=== PATIENT | female | born 1950 | race Hispanic/Latino ===

== ENCOUNTER 2017-09-20 12:50 | Outpatient (CLI) | payer MEDICARE ==
--- NOTE | 2017-09-21 07:58 | Magnetic Resonance Report ---
MRI of the lumbar spine. History: Severe lumbosacral radiculopathy. Procedure: Sagittal T1-weighted, T2-weighted, inversion recovery images, axial T1 and T2-weighted images were used in the study. Findings: The L1-2 level is unremarkable. There is severe narrowing of the disc space at L2-3 with reactive Modic changes at the endplates. There is a mild broad-based disc bulge with mild effacement of the anterior subarachnoid space. Extensive anterior hypertrophic changes are present. There is no spinal stenosis. The L3-4 level is unremarkable. At the L4-5 level, there is a broad-based mild disc bulge. There is moderate facet joint DJD and hypertrophy. There is mild ligamentum flavum hypertrophy. The findings result in borderline central canal stenosis. At the L5-S1 level, there is severe disc space narrowing. A mild circumferential disc bulge is present. There is facet joint DJD and hypertrophy bilaterally, but no spinal stenosis. The conus appears normal. No additional significant bony abnormalities are seen. Impression: Severe degenerative disc disease, most pronounced at L2-3 and L5-S1 with broad-based disc bulges at these levels. Borderline central canal stenosis is present at L4-5.
--- NOTE | 2017-09-21 10:58 | Cat Scan Report ---
CT LUMBAR SPINE WITHOUT CONTRAST: 09/20/17 12:50:00 CLINICAL: Lumbosacral radiculopathy. TECHNIQUE: Volumetric acquisition and 1.25-mm axial scan reconstructions without contrast. Sagittal and coronal reformats were performed. FINDINGS: Normal vertebral body height and alignment. No fracture or subluxation. Disc space narrowing without disc phenomenon at L2-3 and L5-S1. L1-2:Intact. L2-3:Degeneration of the disc with vacuum disc phenomenon. A large right lateral disc-osteophyte produces moderate right neural foraminal narrowing. Mild bilateral facet hypertrophy. L3-4:Moderate circumferential disc bulge. L4-5:Circumferential disc bulge. Moderate bilateral facet hypertrophy and vacuum disc phenomenon of the facet joints. L5-S1:Degeneration of the disc and vacuum disc phenomenon. Anterior and posterior osteophytes. A large left foraminal osteophyte producing moderate left neural foraminal narrowing. Bilateral facet hypertrophy and vacuum disc phenomenon of the right facet joint. IMPRESSION: Multilevel degenerative disease and facet joint disease as described above.
== END 2017-09-20 12:51 | disposition home or self-care (01) ==
LOC: CT 12:50
PROVIDERS: ATTEND Orthopaedic Surgery Orthopaedic Trauma
DX: M51.17 Intervertebral disc disorders with radiculopathy, lumbosacral region (principal); M24.28 Disorder of ligament, vertebrae; Z96.653 Presence of artificial knee joint, bilateral
CPT/HCPCS: 72131; 72148

== ENCOUNTER 2021-04-21 12:54 | Emergency (ER) | payer MEDICARE ==
[2021-04-21 13:40] VITALS: BP 131/68
== END 2021-04-21 16:58 | disposition left against medical advice (07) ==
LOC: ED 12:54
DX: M79.89 Other specified soft tissue disorders (principal); Z53.21 Procedure and treatment not carried out due to patient leaving prior to being seen by health care provider

== ENCOUNTER 2021-05-01 00:20 | Inpatient (IN) | payer MEDICARE ==
[2021-05-01] MEDS ORDERED: HEPARIN 10,000 UNITS/10 ML VIAL IV ONE (00:21)
--- NOTE | 2021-05-01 00:25 | Emergency Department Report ---
ED Chest Pain HPI - General Chief Complaint: Chest Pain Stated Complaint: CHEST PAIN Time Seen by Provider: 05/01/21 00:21 Source: patient, EMS Mode of arrival: Stretcher Limitations: No Limitations - History of Present Illness Initial Comments: 70-year-old -[place] female presents to the emergency department with a complaint of midsternal to left-sided chest pain that started about 11 PM, about 1 hour and 15 minutes prior to presentation. She has a past medical history of hypertension, high cholesterol, diabetes, end-stage renal disease on peritoneal dialysis. She denies any history of LA. EMS called in for a possible code STEMI with an ETA of 15 minutes. They sent an EKG about 8 to 10 minutes later that did show concern for inferior lateral LA. The patient was given a full dose aspirin. They withheld any nitroglycerin with concern for an inferior LA. The EKG from the field was sent to the cable strander, Dr. Escobedo. The Robotics Application Engineer has been activated. - Related Data Home Medications Medication Instructions Recorded Confirmed Last Taken Albuterol Sulfate [Ventolin Hfa] 2 puff IH Q6H PRN 08/30/18 10/10/18 10/08/18 Amlodipine Besylate [Norvasc] 5 mg PO QDAY 08/30/18 10/10/18 10/08/18 HYDROcodone/APAP 7.5-325 [[place] 1 each PO DAILY PRN 08/30/18 10/10/18 10/06/18 7.5-325 mg TAB] Hydralazine HCl 50 mg PO BID 08/30/18 10/10/18 10/08/18 Latanoprost 0.005% 1 drop OU QPM 08/30/18 10/10/18 10/08/18 Pantoprazole [Protonix TAB] 40 mg PO QDAY 08/30/18 10/10/18 10/08/18 Pregabalin [Lyrica] 200 mg PO BID 08/30/18 10/10/18 10/08/18 cloNIDine [Catapres] 0.2 mg PO QHS 08/30/18 10/10/18 10/08/18 tiZANidine [Zanaflex 4mg TAB] 4 mg PO DAILY PRN 08/30/18 10/10/18 10/08/18 Previous Rx's Medication Instructions Recorded Last Taken Type Furosemide [Lasix TAB] 40 mg PO DAILY #30 tablet 10/06/18 10/08/18 Rx Insulin Glargine [Lantus VIAL] 25 units SUB-Q QHS #1 vial 10/06/18 10/08/18 Rx Insulin Lispro [HumaLOG VIAL] 0 units SQ AC #1 vial 10/06/18 10/08/18 Rx Potassium Chloride [K-Dur] 20 meq PO QDAY #30 tablet 10/06/18 10/08/18 Rx Carvedilol [Coreg] 25 mg PO BID #60 tablet 10/15/18 Unknown Rx levoFLOXacin [Levaquin TAB] 500 mg PO Q48HR #1 tablet 10/15/18 Unknown Rx Allergies Allergy/AdvReac Type Severity Reaction Status Date / Time Penicillins Allergy Itching Verified 08/30/18 08:25 Heart Score - HEART Score History: Highly suspicious EKG: Significant ST-depression Age: > 65 Risk factors: > 3 risk factors or hx of atherosclerotic disease Troponin: < normal limit HEART Score: 8 - EKG Read Time Time EKG Completed: 00:25 EKG Read Time: 00:25 - Critical Actions Critical Actions: >7 pts:50-65% risk of adverse cardiac event. Early invasive measures ED Review of Systems ROS: Stated complaint: CHEST PAIN Other details as noted in HPI Comment: All other systems reviewed and negative Constitutional: denies: chills, fever Eyes: denies: eye pain, vision change ENT: denies: ear pain, throat pain Respiratory: shortness of breath. denies: cough Cardiovascular: chest pain. denies: palpitations Gastrointestinal: denies: abdominal pain, vomiting Genitourinary: denies: dysuria, discharge Musculoskeletal: denies: back pain, arthralgia Skin: denies: rash, lesions Neurological: denies: headache, weakness ED Past Medical Hx - Past Medical History Hx Hypertension: Yes Hx Congestive Heart Failure: Yes Hx Diabetes: Yes Hx Renal Disease: Yes (Hx of chronic Kidney Disease) Hx Arthritis: Yes Hx Asthma: Yes Hx HIV: No Additional medical history: stomach issues. - Surgical History Additional Surgical History: bilateral knee replacements, left shoulder surgery, chronic back pain and leg pain - Social History Smoking Status: Never Smoker - Medications Home Medications: Home Medications Medication Instructions Recorded Confirmed Last Taken Type Albuterol Sulfate [Ventolin Hfa] 2 puff IH Q6H PRN 08/30/18 10/10/18 10/08/18 History Amlodipine Besylate [Norvasc] 5 mg PO QDAY 08/30/18 10/10/18 10/08/18 History HYDROcodone/APAP 7.5-325 [[place] 1 each PO DAILY PRN 08/30/18 10/10/18 10/06/18 History 7.5-325 mg TAB] Hydralazine HCl 50 mg PO BID 08/30/18 10/10/18 10/08/18 History Latanoprost 0.005% 1 drop OU QPM 08/30/18 10/10/18 10/08/18 History Pantoprazole [Protonix TAB] 40 mg PO QDAY 08/30/18 10/10/18 10/08/18 History Pregabalin [Lyrica] 200 mg PO BID 08/30/18 10/10/18 10/08/18 History cloNIDine [Catapres] 0.2 mg PO QHS 08/30/18 10/10/18 10/08/18 History tiZANidine [Zanaflex 4mg TAB] 4 mg PO DAILY PRN 08/30/18 10/10/18 10/08/18 History Furosemide [Lasix TAB] 40 mg PO DAILY #30 tablet 10/06/18 10/10/18 10/08/18 Rx Insulin Glargine [Lantus VIAL] 25 units SUB-Q QHS #1 vial 10/06/18 10/10/18 10/08/18 Rx Insulin Lispro [HumaLOG VIAL] 0 units SQ AC #1 vial 10/06/18 10/10/18 10/08/18 Rx Potassium Chloride [K-Dur] 20 meq PO QDAY #30 tablet 10/06/18 10/10/18 10/08/18 Rx Carvedilol [Coreg] 25 mg PO BID #60 tablet 10/15/18 Unknown Rx levoFLOXacin [Levaquin TAB] 500 mg PO Q48HR #1 tablet 10/15/18 Unknown Rx ED Physical Exam - General Limitations: No Limitations - Other Other exam information: GENERAL: The patient is well-developed well-nourished. HENT: Normocephalic. Atraumatic. Patient has moist mucous membranes. EYES: Extraocular motions are intact. NECK: Supple. Trachea is midline. CHEST/LUNGS: Clear to auscultation. There is no respiratory distress noted. HEART/CARDIOVASCULAR: Regular. There is no tachycardia. There is no murmur. ABDOMEN: Abdomen is soft, nontender. Patient has normal bowel sounds. There is no abdominal distention. Peritoneal dialysis catheter in place. SKIN: Skin is warm and dry. NEURO: The patient is awake, alert, and oriented. The patient is cooperative. The patient has no focal neurologic deficits. Normal speech. MUSCULOSKELETAL: There is no tenderness or deformity. There is no limitation range of motion. ED Course Vital Signs 05/01/21 05/01/21 05/01/21 00:23 00:28 00:31 Temperature Pulse Rate 94 H 95 H 92 H Respiratory 22 17 11 L Rate Blood Pressure 200/97 O2 Sat by Pulse 100 97 100 Oximetry 05/01/21 00:46 Temperature 97.0 F L Pulse Rate Respiratory Rate Blood Pressure O2 Sat by Pulse Oximetry - Consultations Consultation #1: 05/01/21 00:12 I spoke with and sent the EKG to the cable strander on-call, Dr. Escobedo. He agrees with the concern for acute STEMI and we will continue with Robotics Application Engineer activation. TOSHIA score - Toshia Score Age > 65: (1) Yes Aspirin use within the Past 7 Days: (1) Yes 3 or more CAD Risk Factors: (1) Yes 2 or more Angina events in past 24 hrs: (0) No Known CAD with more than 50% Stenosis: (0) No Elevated Cardiac Markers: (0) No ST Deviation Greater than 0.5mm: (1) Yes TOSHIA Score: 4 ED Medical Decision Making - Lab Data Result diagrams: 05/01/21 00:25 05/01/21 00:25 - EKG Data -: EKG Interpreted by In EKG shows normal: sinus rhythm, axis, intervals, QRS complexes, ST-T waves (ST elevations to the inferior and lateral leads, anteroseptal ST depressions, inferior lateral STEMI) Rate: normal - EKG Data When compared to previous EKG there are: changes noted (Previous EKG from 10/09/2018. Normal sinus rhythm without ST changes.) Interpretation: acute LA (Inferolateral STEMI) - Medical Decision Making This patient presents to the emergency department from home with a complaint of midsternal to left-sided chest pain that started about 11 PM this evening. The EKG from the field shows concern for inferolateral STEMI so a code STEMI was called and the Robotics Application Engineer was activated. The EKG was seen by the cable strander who agrees. When the patient arrived we did another EKG that once again shows inferolateral STEMI. The patient received an aspirin in route. We gave the patient a 4000 unit heparin IV bolus. She was given 4 mg of morphine, 4 mg of Zofran, and 5 mg of Lopressor. The patient was taken to the Robotics Application Engineer where it appears that she has a PAD lesion that required balloon angioplasty and a drug-eluting stent. The patient will be admitted to the ICU after her C and was accepted for admission by Dr. Aquino. Critical Care Time: Yes Critical care time in (mins) excluding proc time.: 31 Critical care attestation.: If time is entered above; I have spent that time in minutes in the direct care of this critically ill patient, excluding procedure time. Critical care time was spent on this patient in doing her initial evaluation, multiple reevaluations, prearrival EKG interpretation and Robotics Application Engineer activation, discussion with the cable strander, ordering and interpretation of labs, medications including heparin, IV analgesia, antihypertensive medication, and multiple discussions with the patient and her . Critical Care Time: 31 minutes ED Disposition Clinical Impression: End-stage renal disease on peritoneal dialysis, Hypertensive urgency STEMI (ST elevation myocardial infarction) Qualifiers: Involved coronary artery: other inferior wall coronary artery Qualified Code(s): I21.19 - ST elevation (STEMI) myocardial infarction involving other coronary artery of inferior wall Disposition: DC-[id number] OP ADMIT IP TO THIS HOSP Is pt being admited?: Yes Condition: Serious Time of Disposition: 01:28
[2021-05-01] MEDS ORDERED: ONDANSETRON 4 MG/2 ML INJ IV ONE (00:33)
[2021-05-01] MEDS ORDERED: MORPHINE 4 MG/1 ML INJ IV ONE (00:33)
[2021-05-01] MEDS ORDERED: METOPROLOL TARTRATE 5 MG/5 ML INJ IV ONE (00:34)
[2021-05-01] MEDS ORDERED: HEPARIN/NS 5000 UNIT/500ML 0 ML IR ONE (00:47)
[2021-05-01 00:48] LABS: Basophils # (Auto) 0.1 K/mm3 (0.0-0.1); Basophils % (Auto) 0.6 % (0.0-1.8); Eosinophils # (Auto) 0.3 K/mm3 (0.0-0.4); Eosinophils % (Auto) 3.5 % (0.0-4.3); Hematocrit 33.4 % (30.3-42.9); Hemoglobin 10.9 gm/dl (10.1-14.3); Lymphocytes % (Auto) 20.8 % (13.4-35.0); Mean Corpuscular HGB Conc 33 % (30-34); Mean Corpuscular Volume 92 fl (79-97); Monocytes # (Auto) 0.7 K/mm3 (0.0-0.8); Monocytes % (Auto) 7.4 % (0.0-7.3); Platelet Count 202 K/mm3 (140-440); Red Blood Count 3.65 M/mm3 (3.65-5.03); Red Cell Distribution Width 16.3 % (13.2-15.2)
[2021-05-01] MEDS ORDERED: SODIUM CHLORIDE 0.9% 500 ML 500 ML ONE (00:48)
[2021-05-01] MEDS ORDERED: HEPARIN/NS 5000 UNIT/500ML 1,000 ML IR ONE (00:48)
[2021-05-01] MEDS ORDERED: VERAPAMIL 5 MG/2 ML INJ ONE (00:49)
[2021-05-01] MEDS ORDERED: NITROGLYCERIN SYRINGE 3 ML ONE (00:51)
[2021-05-01 00:58] LABS: INR 0.97 (0.87-1.13)
[2021-05-01 00:59] LABS: Partial Thromboplastin Time 34.4 Sec. (24.2-36.6)
[2021-05-01] MEDS: LIDOCAINE (2%) 20 MG/1 ML VIAL 20 ML MDV INFILTRATI ONE ×2 (01:05→01:14)
[2021-05-01] MEDS: MIDAZOLAM 2 MG/2 ML INJ ONE ×2 (01:05→01:08)
[2021-05-01] MEDS: fentaNYL 100 MCG/2 ML INJ ONE ×3 (01:05→01:15)
[2021-05-01] MEDS ORDERED: hydrALAZINE 20 MG/1 ML INJ ONE (01:10)
[2021-05-01 01:12] LABS: Creatine Kinase MB 3.8 ng/mL (0.0-4.0)
[2021-05-01 01:13] LABS: Calcium 8.2 mg/dL (8.4-10.2)
[2021-05-01] MEDS: HEPARIN 10,000 UNITS/10 ML VIAL ONE ×2 (01:15→01:55)
[2021-05-01] MEDS ORDERED: ATROPINE 0.1% (1 MG/10 ML) CARDIAC SYRINGE ONE (01:28)
[2021-05-01] MEDS ORDERED: EPINEPHrine 1 MG/10 ML SYRINGE ONE (01:28)
[2021-05-01] MEDS ORDERED: LIDOCAINE PF 100 MG/5 ML (CARDIAC SYRINGE) IV ONE (01:28)
[2021-05-01] MEDS ORDERED: PHENYLEPHRINE/NS 1,000 MCG/10 ML SYRINGE (OR USE) IV ONE (01:29)
[2021-05-01] MEDS ORDERED: AMIODARONE 150 MG/3 ML INJ IV ONE (01:30)
[2021-05-01] MEDS ORDERED: SODIUM CHLORIDE 0.9% 1000 ML 1,000 ML ONE (01:33)
[2021-05-01] MEDS ORDERED: DOPamine/D5W 800 MG/250 ML 800 MG/250 ML BAG IV ONE (01:34)
[2021-05-01] MEDS ORDERED: CLOPIDOGREL 300 MG TAB ONE (01:49)
[2021-05-01] MEDS ORDERED: ALUM-MAG HYDROXIDE-SIMETHICONE 200-200-20MG/5ML ORAL LIQD 30 ML ONE (01:58)
[2021-05-01] MEDS ORDERED: traMADol 50 MG TAB PO PRN (02:07)
[2021-05-01] MEDS ORDERED: ACETAMINOPHEN 325 MG TAB PO PRN ×2 (02:07→03:27)
[2021-05-01] MEDS ORDERED: ZOLPIDEM 5 MG TAB PO PRN (02:07)
--- NOTE | 2021-05-01 02:15 | Consultation ---
History of Present Illness Consult date: 05/01/21 Consult reason: chest pain, other (Inferior STEMI) History of present illness: 68-year-old woman with end-stage renal disease on peritoneal dialysis, presents with chest pain and ECG consistent with an acute inferior lateral STEMI. She underwent emergency cardiac catheterization protocol, we found complete occlusion of the right coronary artery in its distal segment. Successful angioplasty restored to mid 3 flow to a large posterior left ventricular branch, with excellent angiographic result after deployment of serial drug-eluting stents. The patient is admitted to the CCU for post IA supportive management. Due to advanced age, multiple comorbidities including end-stage renal disease, her prognosis is guarded. Past History Past Medical History: diabetes, hypertension, renal failure Medications and Allergies Allergies Allergy/AdvReac Type Severity Reaction Status Date / Time Penicillins Allergy Itching Verified 08/30/18 08:25 Home Medications Medication Instructions Recorded Confirmed Last Taken Type Albuterol Sulfate [Ventolin Hfa] 2 puff IH Q6H PRN 08/30/18 10/10/18 10/08/18 History Amlodipine Besylate [Norvasc] 5 mg PO QDAY 08/30/18 10/10/18 10/08/18 History HYDROcodone/APAP 7.5-325 [[place] 1 each PO DAILY PRN 08/30/18 10/10/18 10/06/18 History 7.5-325 mg TAB] Hydralazine HCl 50 mg PO BID 08/30/18 10/10/18 10/08/18 History Latanoprost 0.005% 1 drop OU QPM 08/30/18 10/10/18 10/08/18 History Pantoprazole [Protonix TAB] 40 mg PO QDAY 08/30/18 10/10/18 10/08/18 History Pregabalin [Lyrica] 200 mg PO BID 08/30/18 10/10/18 10/08/18 History cloNIDine [Catapres] 0.2 mg PO QHS 08/30/18 10/10/18 10/08/18 History tiZANidine [Zanaflex 4mg TAB] 4 mg PO DAILY PRN 08/30/18 10/10/18 10/08/18 History Furosemide [Lasix TAB] 40 mg PO DAILY #30 tablet 12/20/18 12/24/18 12/22/18 Rx Insulin Glargine [Lantus VIAL] 25 units SUB-Q QHS #1 vial 10/06/18 10/10/18 10/08/18 Rx Insulin Lispro [HumaLOG VIAL] 0 units SQ AC #1 vial 10/06/18 10/10/18 10/08/18 Rx Potassium Chloride [K-Dur] 20 meq PO QDAY #30 tablet 10/06/18 10/10/18 10/08/18 Rx Carvedilol [Coreg] 25 mg PO BID #60 tablet 10/15/18 Unknown Rx levoFLOXacin [Levaquin TAB] 500 mg PO Q48HR #1 tablet 10/15/18 Unknown Rx Active Meds: Active Medications Acetaminophen (Acetaminophen 325 Mg Tab) 650 mg PO Q4H PRN PRN Reason: Pain MILD(1-3)/Fever >100.5/PÉREZ Aspirin (Aspirin Ec 325 Mg Tab) 81 mg PO QDAY LADAN Atorvastatin Calcium (Atorvastatin 40 Mg Tab) 40 mg PO QHS LADAN Clopidogrel Bisulfate (Clopidogrel 75 Mg Tab) 75 mg PO QDAY LADAN Dopamine HCl/Dextrose (Intropin Drip 800 Mg/D5w 250 Ml) 800 mg in 250 mls @ 2.685 mls/hr IV TITR ONE; Protocol Stop: 05/04/21 23:17 Isosorbide Mononitrate (Isosorbide Mononitrate Er 30 Mg Tab) 30 mg PO QDAY LADAN Metoprolol Tartrate (Metoprolol Tartrate 25 Mg Tab) 25 mg PO Q8H LADAN Ondansetron HCl (Ondansetron 4 Mg/2 Ml Inj) 4 mg IV Q8H PRN PRN Reason: N/V unrelieved by Regradha Tramadol HCl (Tramadol 50 Mg Tab) 50 mg PO Q4H PRN PRN Reason: Pain, Mild (1-3) Zolpidem Tartrate (Zolpidem 5 Mg Tab) 5 mg PO QHS PRN PRN Reason: Sleep Review of Systems Cardiovascular: chest pain, shortness of breath, no orthopnea, no palpitations, no rapid/irregular heart beat, no edema, no syncope, no lightheadedness Physical Examination Vital Signs Pulse Resp Pulse Ox 94 H 22 100 05/01/21 00:23 05/01/21 00:23 05/01/21 00:23 General appearance: mild distress HEENT: Positive: PERRL Neck: Positive: neck supple Cardiac: Positive: Reg Rate and Rhythm Lungs: Positive: Decreased Breath Sounds Neuro: Positive: Grossly Intact Abdomen: Positive: Soft Female genitourinary: deferred Skin: Positive: Clear Extremities: Absent: edema Results 05/01/21 00:25 05/01/21 00:25 Cardiac Enzymes 05/01/21 Range/Units 00:25 CK-MB (CK-2) 3.8 (0.0-4.0) ng/mL Coagulation 05/01/21 Range/Units 00:25 PT 13.4 (12.2-14.9) Sec. INR 0.97 (0.87-1.13) APTT 34.4 (24.2-36.6) Sec. CBC 05/01/21 Range/Units 00:25 WBC 9.5 (4.5-11.0) K/mm3 RBC 3.65 (3.65-5.03) M/mm3 Hgb 10.9 (10.1-14.3) gm/dl Hct 33.4 (30.3-42.9) % Plt Count 202 (140-440) K/mm3 Lymph # (Auto) 2.0 (1.2-5.4) K/mm3 [place] # (Auto) 0.7 (0.0-0.8) K/mm3 Eos # (Auto) 0.3 (0.0-0.4) K/mm3 Baso # (Auto) 0.1 (0.0-0.1) K/mm3 Comprehensive Metabolic Panel 05/01/21 Range/Units 00:25 Sodium 138 (137-145) mmol/L Potassium 3.8 (3.6-5.0) mmol/L Chloride 99.6 (98-107) mmol/L Carbon Dioxide 20 L (22-30) mmol/L BUN 50 H (7-17) mg/dL Creatinine 7.3 H (0.6-1.2) mg/dL Glucose 201 H (65-100) mg/dL Calcium 8.2 L (8.4-10.2) mg/dL EKG interpretations - Telemetry EKG Rhythm: Sinus Rhythm (With acute inferolateral STEMI) Assessment and Plan - Patient Problems (1) STEMI (ST elevation myocardial infarction) Current Visit: Yes Status: Acute Qualifiers: Involved coronary artery: other inferior wall coronary artery Qualified Code(s): I21.19 - ST elevation (STEMI) myocardial infarction involving other coronary artery of inferior wall Plan to address problem: Patient treated with emergency cardiac catheterization and successful primary angioplasty of the complete occlusion of the distal right coronary artery.
[2021-05-01] MEDS ORDERED: HYDROmorphone 1 MG/1 ML INJ IV PRN (03:27)
[2021-05-01] MEDS ORDERED: ONDANSETRON 4 MG/2 ML INJ IV PRN (03:27)
[2021-05-01] MEDS ORDERED: oxyCODONE /ACETAMINOPHEN 5-325MG TAB PO PRN (03:27)
[2021-05-01] MEDS: DOPamine/D5W 800 MG/250 ML 800 MG/250 ML BAG IV ONE ×2 (03:30→04:04)
--- NOTE | 2021-05-01 03:39 | History and Physical Report ---
History of Present Illness Date of examination: 05/01/21 Date of admission: 05/01/21 01:29 Chief complaint: Chest pain History of present illness: 70-year-old female with past medical history of hypertension, high cholesterol, diabetes and end-stage renal disease on peritoneal dialysis was brought to the emergency room because of midsternal to left-sided chest pain that started about 11 PM, about 1 hour and 15 minutes prior to presentation. She denies any his tory of CT. EMS called in for a possible code STEMI with an ETA of 15 minutes. They sent an EKG about 8 to 10 minutes later that did show concern for inferior lateral CT. The patient was given a full dose aspirin. They withheld any nitroglycerin with concern for an inferior CT. Subsequently patient was seen and evaluated by cardiology and patient underwent emergent cardiac cath and patient was found complete occlusion of the right coronary artery in its distal segment. Successful angioplasty restored to mid 3 flow to a large posterior left ventricular branch with excellent angiographic r esult after deployment of serial drug-eluting stent Past History Past Medical History: diabetes, ESRD, hypertension, hyperlipidemia, renal failure Medications and Allergies Allergies Allergy/AdvReac Type Severity Reaction Status Date / Time Penicillins Allergy Itching Verified 08/30/18 08:25 Home Medications Medication Instructions Recorded Confirmed Last Taken Type Albuterol Sulfate [Ventolin Hfa] 2 puff IH Q6H PRN 08/30/18 10/10/18 10/08/18 History Amlodipine Besylate [Norvasc] 5 mg PO QDAY 08/30/18 10/10/18 10/08/18 History HYDROcodone/APAP 7.5-325 [[place] 1 each PO DAILY PRN 08/30/18 10/10/18 10/06/18 History 7.5-325 mg TAB] Hydralazine HCl 50 mg PO BID 08/30/18 10/10/18 10/08/18 History Latanoprost 0.005% 1 drop OU QPM 08/30/18 10/10/18 10/08/18 History Pantoprazole [Protonix TAB] 40 mg PO QDAY 08/30/18 10/10/18 10/08/18 History Pregabalin [Lyrica] 200 mg PO BID 08/30/18 10/10/18 10/08/18 History cloNIDine [Catapres] 0.2 mg PO QHS 08/30/18 10/10/18 10/08/18 History tiZANidine [Zanaflex 4mg TAB] 4 mg PO DAILY PRN 08/30/18 10/10/18 10/08/18 History Furosemide [Lasix TAB] 40 mg PO DAILY #30 tablet 10/06/18 10/10/18 10/08/18 Rx Insulin Glargine [Lantus VIAL] 25 units SUB-Q QHS #1 vial 10/06/18 10/10/18 10/08/18 Rx Insulin Lispro [HumaLOG VIAL] 0 units SQ AC #1 vial 10/06/18 10/10/18 10/08/18 Rx Potassium Chloride [K-Dur] 20 meq PO QDAY #30 tablet 10/06/18 10/10/18 10/08/18 Rx Carvedilol [Coreg] 25 mg PO BID #60 tablet 10/15/18 Unknown Rx levoFLOXacin [Levaquin TAB] 500 mg PO Q48HR #1 tablet 10/15/18 Unknown Rx Active Meds: Active Medications Acetaminophen (Acetaminophen 325 Mg Tab) 650 mg PO Q4H PRN PRN Reason: Pain MILD(1-3)/Fever >100.5/PÉREZ Acetaminophen (Acetaminophen 325 Mg Tab) 650 mg PO Q4H PRN PRN Reason: Pain MILD(1-3)/Fever >100.5/PÉREZ Amlodipine Besylate (Amlodipine 5 Mg Tab) 5 mg PO QDAY LADAN Aspirin (Aspirin Ec 81 Mg Tab) 81 mg PO QDAY LADAN Atorvastatin Calcium (Atorvastatin 40 Mg Tab) 40 mg PO QHS LADAN Clopidogrel Bisulfate (Clopidogrel 75 Mg Tab) 75 mg PO QDAY LADAN Hydromorphone HCl (Hydromorphone 1 Mg/1 Ml Inj) 0.5 mg IV Q3H PRN PRN Reason: Pain , Severe (7-10) Dopamine HCl/Dextrose (Intropin Drip 800 Mg/D5w 250 Ml) 800 mg in 250 mls @ 2.685 mls/hr IV TITR ONE; Protocol Stop: 05/04/21 23:17 Isosorbide Mononitrate (Isosorbide Mononitrate Er 30 Mg Tab) 30 mg PO QDAY LADAN Metoprolol Tartrate (Metoprolol Tartrate 25 Mg Tab) 25 mg PO Q8HR LADAN Morphine Sulfate (Morphine 2 Mg/1 Ml Inj) 2 mg IV Q4H PRN PRN Reason: Pain, Moderate (4-6) Ondansetron HCl (Ondansetron 4 Mg/2 Ml Inj) 4 mg IV Q8H PRN PRN Reason: N/V unrelieved by Reglan Ondansetron HCl (Ondansetron 4 Mg/2 Ml Inj) 4 mg IV Q8H PRN PRN Reason: Nausea And Vomiting Oxycodone/Acetaminophen (Oxycodone /Acetaminophen 5-325mg Tab) 1 tab PO Q6H PRN PRN Reason: Pain, Moderate (4-6) Sodium Chloride (Sodium Chloride 0.9% 10 Ml Flush Syringe) 10 ml IV BID LADAN Sodium Chloride (Sodium Chloride 0.9% 10 Ml Flush Syringe) 10 ml IV PRN PRN PRN Reason: LINE FLUSH Tramadol HCl (Tramadol 50 Mg Tab) 50 mg PO Q4H PRN PRN Reason: Pain, Mild (1-3) Zolpidem Tartrate (Zolpidem 5 Mg Tab) 5 mg PO QHS PRN PRN Reason: Sleep Review of Systems Cardiovascular: chest pain, shortness of breath Respiratory: shortness of breath Exam - Constitutional Vitals: Temp Pulse Resp BP Pulse Ox 97.0 F L 92 H 11 L 200/97 100 05/01/21 00:46 05/01/21 00:31 05/01/21 00:31 05/01/21 00:31 05/01/21 00:31 General appearance: Present: no acute distress, well-nourished - EENT Eyes: Present: PERRL ENT: hearing intact, clear oral mucosa - Neck Neck: Present: supple, normal ROM - Respiratory Respiratory effort: normal Respiratory: bilateral: diminished - Cardiovascular Heart Sounds: Present: S1 & S2. Absent: rub, click - Extremities Extremities: pulses symmetrical, No edema Peripheral Pulses: within normal limits - Abdominal General gastrointestinal: Present: soft, non-tender, non-distended, normal bowel sounds Female genitourinary: Present: normal - Integumentary Integumentary: Present: clear, warm, dry - Musculoskeletal Musculoskeletal: gait normal, strength equal bilaterally - Psychiatric Psychiatric: appropriate mood/affect, intact judgment & insight - Neurologic Neurologic: CNII-XII intact, moves all extremities HEART Score - HEART Score EKG: Significant ST-depression Age: > 65 Risk factors: > 3 risk factors or hx of atherosclerotic disease Troponin: Troponin T 0.027 ng/mL (0.00-0.029) 05/01/21 00:25 Troponin: < normal limit - Critical Actions Critical Actions: >7 pts:50-65% risk of adverse cardiac event. Early invasive measures Results - Labs CBC & Chem 7: 05/01/21 00:25 05/01/21 00:25 Labs: Laboratory Last Values WBC 9.5 K/mm3 (4.5-11.0) 05/01/21 00:25 RBC 3.65 M/mm3 (3.65-5.03) 05/01/21 00:25 Hgb 10.9 gm/dl (10.1-14.3) 05/01/21 00:25 Hct 33.4 % (30.3-42.9) 05/01/21 00:25 MCV 92 fl (79-97) 05/01/21 00:25 MCH 30 pg (28-32) 05/01/21 00:25 MCHC 33 % (30-34) 05/01/21 00:25 RDW 16.3 % (13.2-15.2) H 05/01/21 00:25 Plt Count 202 K/mm3 (140-440) 05/01/21 00:25 Lymph % (Auto) 20.8 % (13.4-35.0) 05/01/21 00:25 [place] % (Auto) 7.4 % (0.0-7.3) H 05/01/21 00:25 Eos % (Auto) 3.5 % (0.0-4.3) 05/01/21 00:25 Baso % (Auto) 0.6 % (0.0-1.8) 05/01/21 00:25 Lymph # (Auto) 2.0 K/mm3 (1.2-5.4) 05/01/21 00:25 [place] # (Auto) 0.7 K/mm3 (0.0-0.8) 05/01/21 00:25 Eos # (Auto) 0.3 K/mm3 (0.0-0.4) 05/01/21 00:25 Baso # (Auto) 0.1 K/mm3 (0.0-0.1) 05/01/21 00:25 Seg Neutrophils % 67.7 % (40.0-70.0) 05/01/21 00:25 Seg Neutrophils # 6.5 K/mm3 (1.8-7.7) 05/01/21 00:25 PT 13.4 Sec. (12.2-14.9) 05/01/21 00:25 INR 0.97 (0.87-1.13) 05/01/21 00:25 APTT 34.4 Sec. (24.2-36.6) 05/01/21 00:25 Sodium 138 mmol/L (137-145) 05/01/21 00:25 Potassium 3.8 mmol/L (3.6-5.0) 05/01/21 00:25 Chloride 99.6 mmol/L (98-107) 05/01/21 00:25 Carbon Dioxide 20 mmol/L (22-30) L 05/01/21 00:25 Anion Gap 22 mmol/L 05/01/21 00:25 BUN 50 mg/dL (7-17) H 05/01/21 00:25 Creatinine 7.3 mg/dL (0.6-1.2) H 05/01/21 00:25 Estimated GFR 5 ml/min 05/01/21 00:25 BUN/Creatinine Ratio 7 % 05/01/21 00:25 Glucose 201 mg/dL (65-100) H 05/01/21 00:25 Calcium 8.2 mg/dL (8.4-10.2) L 05/01/21 00:25 Total Creatine Kinase 181 units/L (30-135) H 05/01/21 00:25 CK-MB (CK-2) 3.8 ng/mL (0.0-4.0) 05/01/21 00:25 CK-MB (CK-2) Rel Index 2.0 (0-4) 05/01/21 00:25 Troponin T 0.027 ng/mL (0.00-0.029) 05/01/21 00:25 Blood Type B POSITIVE 05/01/21 00:25 Antibody Screen Negative 05/01/21 00:25 Assessment and Plan VTE prophylaxis?: Chemical Plan of care discussed with patient/family: Yes - Patient Problems (1) STEMI (ST elevation myocardial infarction) Current Visit: Yes Status: Acute Qualifiers: Involved coronary artery: other inferior wall coronary artery Qualified Code(s): I21.19 - ST elevation (STEMI) myocardial infarction involving other coronary artery of inferior wall Plan to address problem: Admit to the critical care unit. patient was seen and evaluated by cardiology and patient underwent emergent cardiac cath and patient was found complete occlusion of the right coronary artery in its distal segment. Successful angioplasty restored to mid 3 flow to a large posterior left ventricular branch with excellent angiographic result after deployment of serial drug-eluting stent Aspirin 81 mg p.o. daily Coreg 25 mg p.o. twice daily Plavix 75 mg p.o. daily Lipitor 40 mg p.o. nightly. Heparin drip. Echocardiogram. Cardiology evaluation (2) End-stage renal disease on peritoneal dialysis Current Visit: Yes Status: Acute Plan to address problem: We will consult nephrology for evaluation and peritoneal dialysis. Avoid nephrotoxic drug. Recheck BMP in the morning (3) CHF (congestive heart failure) Current Visit: No Status: Acute Qualifiers: Heart failure type: combined systolic and diastolic Heart failure chr onicity: acute on chronic Qualified Code(s): I50.43 - Acute on chronic combined systolic (congestive) and diastolic (congestive) heart failure Plan to address problem: Stable we will continue the home medication. Echocardiogram cardiology consult (4) Diabetes Current Visit: No Status: Acute Plan to address problem: We will put the patient on Humalog sliding scale Accu-Chek before meals and at bedtime with moderate dose coverage. Lantus 25 units subcu nightly. Diabetic education (5) HTN (hypertension) Current Visit: No Status: Acute Qualifiers: Hypertension type: essential hypertension Qualified Code(s): I10 - Essential (primary) hypertension Plan to address problem: Coreg 25 mg p.o. twice daily isosorbide mononitrate 30 mg p.o. daily we will monitor the blood pressure closely (6) DVT prophylaxis Current Visit: No Status: Acute Plan to address problem: Heparin drip for DVT prophylaxis. Pepcid 20 mg p.o. twice daily for GI prophylaxis. Patient is a full code
[2021-05-01] MEDS: ONDANSETRON 4 MG/2 ML INJ IV PRN (03:53)
[2021-05-01] MEDS: METOPROLOL TARTRATE 25 MG TAB PO SCH ×3 (04:56→22:49)
[2021-05-01] MEDS: MORPHINE 2 MG/1 ML INJ IV PRN ×2 (04:57→15:49)
--- NOTE | 2021-05-01 05:18 | XRay Report ---
XR chest 1V ap INDICATION / CLINICAL INFORMATION: CP. COMPARISON: 10/09/2018 FINDINGS: SUPPORT DEVICES: None. HEART /PULMONARY VASCULATURE: No significant abnormality. LUNGS / PLEURA: Low lung volumes. No significant pulmonary or pleural abnormality. No pneumothorax. ADDITIONAL FINDINGS: No significant additional findings. IMPRESSION: 1. No acute findings. Signer Name: Darion Bess MD Signed: 05/01/2021 5:13 AM Workstation Name: [id number]
--- NOTE | 2021-05-01 06:49 | Cardiac Catherization Report ---
DATE OF SERVICE: 05/01/2021 INDICATIONS: The patient is a 70-year-old woman with history of end-stage renal disease on peritoneal dialysis. She presented to the hospital with severe chest pain of several hours duration. In the emergency room, the EKG was consistent with an acute inferolateral ST elevation myocardial infarction. Emergency STEMI code protocol was activated. She was taken emergently to the cardiac catheterization laboratory. PROCEDURES PERFORMED: 1. Left heart catheterization. 2. Selective left and right coronary angiography. 3. Left ventricular angiography. 4. Coronary angioplasty and stenting of the distal and mid segments of the right coronary artery. 5. Sedation time start 0105, and 0148. The patient was prepped and draped in a sterile fashion under emergency protocol. The right femoral artery was entered using Seldinger technique followed by placement of a 6-Trinidadian sheath. A #4 left Preston catheter was used for left coronary angiography. We then exchanged for a #4 right Preston catheter, which was used for right coronary angiography. The right Preston guiding catheter was also used for left ventricular angiography. The angiograms were reviewed. CORONARY ANGIOGRAPHY: The left main coronary artery was free of significant disease. Left anterior descending artery of the diagonal branches contained mild luminal irregularities. There was a 50-60% stenosis of the ostium of a small to medium sized first diagonal branch. The first obtuse marginal branch of the circumflex artery contained a 30% stenosis. There was another 30% stenosis of the AV groove circumflex leading to another terminal medium sized obtuse marginal. The right coronary artery was dominant. This vessel contained a 70-75% stenosis of its mid segment just before the acute margin. More distally, there was complete occlusion of the distal right coronary segment, leading to a large terminal posterolateral branch. This was the infarct lesion. There was mild left ventricular systolic dysfunction with overall left ventricular ejection fraction 40-45%. CORONARY ANGIOPLASTY: We commenced with primary coronary intervention to the distal right coronary artery occlusion. We selected a 0.014 inch Control Systems Designer 50 guidewire, successfully deploying the wire across the lesional segment into a large posterior left ventricular branch. We then performed predilatation balloon angioplasty using a 2.5 mm balloon. This restored T[place]HIA 3 flow. Two serial 2.5 mm drug-eluting stents were then deployed across the long residual lesional segment between the small right posterior descending branch and leading to the large posterior left ventricular branch. The stents were deployed to optimal pressures. There was then excellent angiographic result of the primary lesional site, alevism of TOSHIA 3 flow into a large posterior left ventricular branch. We then turned our attention to the 70-75% stenosis of the mid vessel. In a primary stenting maneuver, we deployed a 3.5 x 15 mm drug-eluting stent, deployed to optimal pressures across this lesion. Following this, there was an excellent angiographic result achieved in this secondary lesion. The wires and the catheters were then removed, post-intervention angiograms revealed widely patent vessel, both at the secondary lesional site and the primary lesion distal intervention. A 50% ostial stenosis of the small caliber posterior descending branch was not intervened upon. The patient was then returned to the post-procedure unit in stable condition. There were no complications. She became chest pain free. Due to a low blood pressure following the intervention, we placed on low dose dopamine, the conclusion of the procedure, the systolic blood pressure was 110, on low dose dopamine, she was in stable sinus rhythm, 66. The inferior ST elevations were more than 50% resolved toward baseline. CONCLUSION: 1. Acute inferolateral ST elevation myocardial infarction. 2. Emergency cardiac catheterization. 3. 100% occlusion of the distal right coronary artery after the posterior descending branch and leading to a large posterolateral branch. 4. Successful primary angioplasty and stenting with alevism of TOSHIA 3 flow and excellent angiographic result. 5. Successful stenting of a secondary lesion in the mid right coronary artery. 6. Left coronary system contained mild nonobstructive disease, recommended for medical therapy and risk factor modification. 7. Mild left ventricular systolic dysfunction, ejection fraction 40-45%. The patient is admitted to the CCU for post-CO stabilization. Due to advanced age, multiple comorbidities including end-stage renal disease, her prognosis is guarded following large acute inferolateral wall ST elevation myocardial infarction. TID: [id number] RECEIPT: [id number] CA
--- NOTE | 2021-05-01 07:30 | Consultation ---
History of Present Illness - Reason for Consult Consult date: 05/01/21 end stage renal disease - History of Present Illness The patient is a 67 yo female with history significant for DM-2, HTN, Diastolic heart failure, chronic hypoxic respiratory failure, OA, Anemia and ESRD on PD who presented to [facility] ED on 05/01 complaints of midsternal to left-sided chest pain starting around 2300 (1hr 50 min prior to presentation). 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 Patient underwent emergency cardiac catheterization and was found complete occlusion of the right coronary artery and is status post successful angioplasty with deployment of drug-eluting stent. Patient was admitted to ICU. She is doing better today. Labs reviewed. Nephrology was consulted for ESRD management. Past History Past Medical History: anemia, diabetes, dialysis, ESRD, heart failure, hypertension, hyperlipidemia, renal failure Medications and Allergies Allergies Allergy/AdvReac Type Severity Reaction Status Date / Time Penicillins Allergy Itching Verified 08/30/18 08:25 Home Medications Medication Instructions Recorded Confirmed Last Taken Type Albuterol Sulfate [Ventolin Hfa] 2 puff IH Q6H PRN 08/30/18 10/10/18 10/08/18 History Amlodipine Besylate [Norvasc] 5 mg PO QDAY 08/30/18 10/10/18 10/08/18 History HYDROcodone/APAP 7.5-325 [[place] 1 each PO DAILY PRN 08/30/18 10/10/18 10/06/18 History 7.5-325 mg TAB] Hydralazine HCl 50 mg PO BID 08/30/18 10/10/18 10/08/18 History Latanoprost 0.005% 1 drop OU QPM 08/30/18 10/10/18 10/08/18 History Pantoprazole [Protonix TAB] 40 mg PO QDAY 08/30/18 10/10/18 10/08/18 History Pregabalin [Lyrica] 200 mg PO BID 08/30/18 10/10/18 10/08/18 History cloNIDine [Catapres] 0.2 mg PO QHS 08/30/18 10/10/18 10/08/18 History tiZANidine [Zanaflex 4mg TAB] 4 mg PO DAILY PRN 08/30/18 10/10/18 10/08/18 History Furosemide [Lasix TAB] 40 mg PO DAILY #30 tablet 10/06/18 10/10/18 10/08/18 Rx Insulin Glargine [Lantus VIAL] 25 units SUB-Q QHS #1 vial 10/06/18 10/10/18 10/08/18 Rx Insulin Lispro [HumaLOG VIAL] 0 units SQ AC #1 vial 10/06/18 10/10/18 10/08/18 Rx Potassium Chloride [K-Dur] 20 meq PO QDAY #30 tablet 10/06/18 10/10/18 10/08/18 Rx Carvedilol [Coreg] 25 mg PO BID #60 tablet 10/15/18 Unknown Rx levoFLOXacin [Levaquin TAB] 500 mg PO Q48HR #1 tablet 10/15/18 Unknown Rx Active Meds: Active Medications Acetaminophen (Acetaminophen 325 Mg Tab) 650 mg PO Q4H PRN PRN Reason: Pain MILD(1-3)/Fever >100.5/PÉREZ Amlodipine Besylate (Amlodipine 5 Mg Tab) 5 mg PO QDAY LADAN Aspirin (Aspirin Ec 81 Mg Tab) 81 mg PO QDAY LADAN Atorvastatin Calcium (Atorvastatin 40 Mg Tab) 40 mg PO QHS LADAN Clopidogrel Bisulfate (Clopidogrel 75 Mg Tab) 75 mg PO QDAY LADAN Hydralazine HCl (Hydralazine 25 Mg Tab) 50 mg PO BID LADAN Hydromorphone HCl (Hydromorphone 1 Mg/1 Ml Inj) 0.5 mg IV Q3H PRN PRN Reason: Pain , Severe (7-10) Dopamine HCl/Dextrose (Intropin Drip 800 Mg/D5w 250 Ml) 800 mg in 250 mls @ 2.685 mls/hr IV TITR ONE; Protocol Stop: 05/04/21 23:17 Last Admin: 05/01/21 03:30 Dose: Not Given Documented by: Insulin Glargine (Insulin Glargine 100 Units/Ml) 25 units SUB-Q QHS LADAN Isosorbide Mononitrate (Isosorbide Mononitrate Er 30 Mg Tab) 30 mg PO QDAY LADAN Latanoprost (Latanoprost 0.005% Ophth Soln 2.5 Ml) 1 drops OU QHS LADAN Levofloxacin (Levofloxacin 500 Mg Tab) 500 mg PO Q48HR LADAN; Protocol Metoprolol Tartrate (Metoprolol Tartrate 25 Mg Tab) 25 mg PO Q8HR [facility] Last Admin: 05/01/21 04:56 Dose: 25 mg Documented by: Morphine Sulfate (Morphine 2 Mg/1 Ml Inj) 2 mg IV Q4H PRN PRN Reason: Pain, Moderate (4-6) Last Admin: 05/01/21 04:57 Dose: 2 mg Documented by: Ondansetron HCl (Ondansetron 4 Mg/2 Ml Inj) 4 mg IV Q8H PRN PRN Reason: N/V unrelieved by Anna Last Admin: 05/01/21 03:53 Dose: 4 mg Documented by: Oxycodone/Acetaminophen (Oxycodone /Acetaminophen 5-325mg Tab) 1 tab PO Q6H PRN PRN Reason: Pain, Moderate (4-6) Pregabalin (Pregabalin 75 Mg Cap) 150 mg PO BID LADAN Pregabalin (Pregabalin 50 Mg Cap) 50 mg PO BID LADAN Sodium Chloride (Sodium Chloride 0.9% 10 Ml Flush Syringe) 10 ml IV BID LADAN Sodium Chloride (Sodium Chloride 0.9% 10 Ml Flush Syringe) 10 ml IV PRN PRN PRN Reason: LINE FLUSH Tramadol HCl (Tramadol 50 Mg Tab) 50 mg PO Q4H PRN PRN Reason: Pain, Mild (1-3) Zolpidem Tartrate (Zolpidem 5 Mg Tab) 5 mg PO QHS PRN PRN Reason: Sleep Review of Systems Constitutional: no weight loss, no weight gain, no fever, no chills, no weakness Breasts: deferred Cardiovascular: chest pain, high blood pressure, no orthopnea, no edema, no syncope, no lightheadedness, no shortness of breath, no leg edema Respiratory: cough, no shortness of breath Gastrointestinal: no abdominal pain, no nausea, no vomiting, no diarrhea, no melena Integumentary: no rash Neurological: no convulsions, no aphasia, no change in speech, no change in mentation Exam - Vital Signs Vital signs: Vital Signs Pulse Resp Pulse Ox 94 H 22 100 05/01/21 00:23 05/01/21 00:23 05/01/21 00:23 Results - Lab Results 05/01/21 11:18 05/01/21 11:18 Most recent lab results Calcium 8.2 mg/dL (8.4-10.2) L 05/01/21 00:25 Assessment and Plan 1. 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 She mostly uses 1.5% solution, 9 Lts and 4 exchanges daily. CAPD ordered; 4 exchanges with 1.5% solution, 2 Lts each every 4 hours. Meds dosage based on GFR. 2. FEN: Monitor lytes and volume status. 3. Acute Inferior Lateral STEMI: Complete occlusion of RCA after posterior descending branch leading to a large posterolateral branch. S/p emergency cardiac catheterization ( EF 40-45%) with angioplasty and deployment of serial drug-eluting stents. Plavix, Statin, Aspirin, Nitrate, BB. Echo; EF 60%, LVH. 4. Anemia: Epogen as needed. 5. HTN. 6. Type 2 DM. Subjective: Patient was seen and examined at the bedside. Examination: General appearance: well-developed, well-nourished, appears stated age, not in distress HEENT: ATNC, MATT, mucous membranes moist, hearing intact, vision intact Neck: supple, tracha midline Respiratory: Clear to Ascultation Cardiology: regular, S1S2, no murmur Gastrointestinal: normoactive bowel sounds, not tender, not distended, PD catheter noted Integumentary: no rash, warm and dry Neurologic: no focal deficit, no asterixis, alert and oriented x3 Ext: no edema Psychiatric: cooperative
[2021-05-01] MEDS: PREGABALIN 75 MG CAP PO SCH ×2 (09:54→22:43)
[2021-05-01] MEDS: ASPIRIN EC 81 MG TAB PO SCH (09:54)
[2021-05-01] MEDS: hydrALAZINE 25 MG TAB PO SCH ×2 (09:54→22:49)
[2021-05-01] MEDS: PREGABALIN 50 MG CAP PO SCH ×2 (09:55→22:43)
[2021-05-01] MEDS ORDERED: amLODIPine 5 MG TAB PO SCH (10:00)
[2021-05-01] MEDS ORDERED: levoFLOXacin 500 MG TAB PO SCH (10:00)
[2021-05-01] MEDS ORDERED: carvediloL 25 MG TAB PO SCH (10:00)
--- NOTE | 2021-05-01 10:05 | Event Note ---
<ANAYELI DENISE - Last Filed: 05/01/21 12:51> Date: 05/01/21 This is a 70-year-old female with DM, HTN, high cholesterol, ESRD on PD who presents the emergency department on 05/01 complaints of midsternal to left-sided chest pain starting around 2300 (1hr 50 min prior to presentation) and ECG from the field showed possible inferior STEMI and Cyber Threat Analyst was activated. 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 Patient was admitted to ICU with consults to CCM and nephrology. 05/01: overnight pt complained of midsternal chest pain and was treated with morphine with relief. Today she complains of right> left leg tenderness, swelling, warmth. B LE dopplar US ordered to r/o DVT. PE: Constitutional: NAD Neuro: A,A,O x4, WHITT x4, normocephalic, non tramutic, PERRL, able to follow commands, able to aniket conversation Cardio: S1 & S2 ausculated, no murmur or rub appreciated. PPP x4 extremites, cap refill < 3 secs Resp: CTA, RRR GI: CLD, tolerating diet, NTND, BS x4 quad : PD pt, states she voids but not witnessed thus far Skin: PD catheter to lower abd with dressing, CDI, right groin with dsg, CDI/ nontender to palpation Social: NOK: Brenda David Home Meds: Albuterol Clonidine 0.2 mg p.o. nightly Lasix 40 mg daily [place] 7.5/325 p.o. daily Humalog K-Dur 20 meq o day Zanaflex 4 mg daily Amlodipine 5 Carvedilol 25 BID Hydralazine 50 twice daily Lantus 25 units subcu nightly Lantoprost OU q pm Levaquin 500 p.o. every 48 Protonix 40 mg daily Lyrica 200 mg p.o. A/P Neuro: NAD -reorientation as needed -Sleep hygiene as needed CV: Acute Inferior Lateral STEMI, complete occlusion of RCA after posterior descending branch leading to a large posterolateral branch -Caridology consulted, appreciate recommendations -s/p emergency cardiac catheterization ( EF 40-45%) with angioplasty and deployment of serial drug-eluting stents -Plavix, Statin, Aspirin, Nitrate, BB -05/01 Echo pending -Lipid panel pending -05/01 troponin 0.027 -s/p dopamine gtt HTN -Resume home hydralazine with hold parameters, hold amlodipine -Blood pressure monitoring per protocol High cholesterol -Statin Resp: Respiratory Insufficiency -Supplemental oxygenation as needed -Pulm hygenie FEN/GI: CKD on PD -Nephrology consulted, patient recommendations -PD per nephrology -Avoid nephrotoxic medications -Renally dose medications -Strict intake and output -Daily weights Metabolic acidosis -Trend BMP -ESRD on PD : NAD Patient states that she voids at home Endo DM -Resume home Lantus -Accu-Cheks -SSI -CC cardiac diet when able -Patient is on CLD for now -Resume home Lyrica DVT/GI prophylaxis: Protonix (home med), SCDs to BLE Dispo: Possible TTF Full Code The high probability of a clinically significant, sudden or life threatening det erioration of the [cardio] system(s) required my full and direct attention, intervention and personal management. The aggregate critical care time was [40] minutes. This time is in addition to time spent performing reported procedures but includes the following: [x] Data Review and interpretation [x] Patient assessment and monitoring of vital signs [x] Documentation [x] Medication orders and management <SELIN BOWMAN - Last Filed: 05/01/21 16:25> Agree with assessment and plan as outlined as above, I personally examined the patient, patient without any chest pain, states that she has lower extremity swelling and pain, Dopplers of lower extremities without any DVTs. We will continue cardiac care per cardiology. Nephrology consulted for peritoneal jerome lysis which should be tonight.
--- NOTE | 2021-05-01 10:49 | Electrocardiograph Report ---
[facility] Test Date: 2021-05-01 Test Time: 00:25:30 Pat Name: ALICIA GARCIA Department: Room: A262 1 Gender: F Compound Specialist: FABRICE : 1950 Requested By: ZE WORTHINGTON Order Number: [id number] Reading MD: Joseluis Lilly Measurements Intervals [place] Rate: 89 P: 55 MI: 197 QRS: 40 QRSD: 98 T: 87 QT: 399 QTc: 485 Interpretive Statements Sinus rhythm Inferior infarct, acute ST elevation, consider lateral injury No previous ECG available for comparison Electronically Signed On 05-01-2021 10:49:09 EDT by Joseluis Lilly
--- NOTE | 2021-05-01 10:56 | Electrocardiograph Report ---
[facility] Test Date: 2021-05-01 Test Time: 07:58:54 Pat Name: ALICIA GARCIA Department: Room: A262 1 Gender: F Collar Folder Operator: JAYSON : 1950 Requested By: JARAD RODRÍGUEZ Order Number: [id number] Reading MD: Joseluis Lilly Measurements Intervals [place] Rate: 78 P: 52 CO: 158 QRS: -49 QRSD: 90 T: -23 QT: 445 QTc: 508 Interpretive Statements Sinus rhythm Left anterior fascicular block Consider left ventricular hypertrophy Abnormal T, consider ischemia, diffuse leads Prolonged QT interval Compared to ECG 05/01/2021 00:25:30 Left anterior fascicular block now present T-wave abnormality now present ST elevations in inferolateral leads normalzed. Electronically Signed On 05-01-2021 10:55:49 EDT by Joseluis Lilly
[2021-05-01 11:54] LABS: Calcium 7.4 mg/dL (8.4-10.2); Hematocrit 29.4 % (30.3-42.9); Hemoglobin 9.6 gm/dl (10.1-14.3); Mean Corpuscular HGB Conc 33 % (30-34); Mean Corpuscular Volume 91 fl (79-97); Platelet Count 190 K/mm3 (140-440); Red Blood Count 3.22 M/mm3 (3.65-5.03); Red Cell Distribution Width 16.3 % (13.2-15.2)
--- NOTE | 2021-05-01 13:41 | Consultation ---
History of Present Illness - Reason for Consult Consult date: 05/01/21 Inferior ID, STEMI - History of Present Illness 70 y/o female admitted with inferior ID status post stents to RCA. Patient had chest pain last evening that resolved with morphine. She has had resolution of her ST elevation. Past History Past Medical History: diabetes, ESRD, hypertension, hyperlipidemia, renal failure Medications and Allergies Allergies Allergy/AdvReac Type Severity Reaction Status Date / Time Penicillins Allergy Itching Verified 08/30/18 08:25 Home Medications Medication Instructions Recorded Confirmed Last Taken Type Albuterol Sulfate [Ventolin Hfa] 2 puff IH Q6H PRN 08/30/18 10/10/18 10/08/18 History Amlodipine Besylate [Norvasc] 5 mg PO QDAY 08/30/18 10/10/18 10/08/18 History HYDROcodone/APAP 7.5-325 [[place] 1 each PO DAILY PRN 08/30/18 10/10/18 10/06/18 History 7.5-325 mg TAB] Hydralazine HCl 50 mg PO BID 08/30/18 10/10/18 10/08/18 History Latanoprost 0.005% 1 drop OU QPM 08/30/18 10/10/18 10/08/18 History Pantoprazole [Protonix TAB] 40 mg PO QDAY 08/30/18 10/10/18 10/08/18 History Pregabalin [Lyrica] 200 mg PO BID 08/30/18 10/10/18 10/08/18 History cloNIDine [Catapres] 0.2 mg PO QHS 08/30/18 10/10/18 10/08/18 History tiZANidine [Zanaflex 4mg TAB] 4 mg PO DAILY PRN 08/30/18 10/10/18 10/08/18 History Furosemide [Lasix TAB] 40 mg PO DAILY #30 tablet 10/06/18 10/10/18 10/08/18 Rx Insulin Glargine [Lantus VIAL] 25 units SUB-Q QHS #1 vial 10/06/18 10/10/18 10/08/18 Rx Insulin Lispro [HumaLOG VIAL] 0 units SQ AC #1 vial 10/06/18 10/10/18 10/08/18 Rx Potassium Chloride [K-Dur] 20 meq PO QDAY #30 tablet 10/06/18 10/10/18 10/08/18 Rx Aspirin EC [Halfprin EC] 81 mg PO QDAY #90 tablet 05/02/21 Unknown Rx AtorvaSTATin [Lipitor] 40 mg PO QHS #90 tablet 05/02/21 Unknown Rx Clopidogrel [Plavix] 75 mg PO QDAY #90 tablet 05/02/21 Unknown Rx ISOSORBIDE MONOnitrate [Imdur ER] 30 mg PO QDAY #90 tablet 05/02/21 Unknown Rx Metoprolol [Lopressor TAB] 25 mg PO Q8HR #90 tablet 05/02/21 Unknown Rx Active Meds: Active Medications Acetaminophen (Acetaminophen 325 Mg Tab) 650 mg PO Q4H PRN PRN Reason: Pain MILD(1-3)/Fever >100.5/PÉREZ Aspirin (Aspirin Ec 81 Mg Tab) 81 mg PO QDAY [facility] Last Admin: 05/01/21 09:54 Dose: 81 mg Documented by: Atorvastatin Calcium (Atorvastatin 40 Mg Tab) 40 mg PO QHS [facility] Clopidogrel Bisulfate (Clopidogrel 75 Mg Tab) 75 mg PO QDAY [facility] Hydralazine HCl (Hydralazine 25 Mg Tab) 50 mg PO BID [facility] Last Admin: 05/01/21 09:54 Dose: Not Given Documented by: Hydromorphone HCl (Hydromorphone 1 Mg/1 Ml Inj) 0.5 mg IV Q3H PRN PRN Reason: Pain , Severe (7-10) Dopamine HCl/Dextrose (Intropin Drip 800 Mg/D5w 250 Ml) 800 mg in 250 mls @ 2.685 mls/hr IV TITR ONE; Protocol Stop: 05/04/21 23:17 Last Admin: 05/01/21 03:30 Dose: Not Given Documented by: Insulin Glargine (Insulin Glargine 100 Units/Ml) 25 units SUB-Q QHS [facility] Isosorbide Mononitrate (Isosorbide Mononitrate Er 30 Mg Tab) 30 mg PO QDAY [facility] Last Admin: 05/01/21 09:55 Dose: 30 mg Documented by: Latanoprost (Latanoprost 0.005% Ophth Soln 2.5 Ml) 1 drops OU QHS [facility] Metoprolol Tartrate (Metoprolol Tartrate 25 Mg Tab) 25 mg PO Q8HR [facility] Last Admin: 05/01/21 04:56 Dose: 25 mg Documented by: Morphine Sulfate (Morphine 2 Mg/1 Ml Inj) 2 mg IV Q4H PRN PRN Reason: Pain, Moderate (4-6) Last Admin: 05/01/21 04:57 Dose: 2 mg Documented by: Ondansetron HCl (Ondansetron 4 Mg/2 Ml Inj) 4 mg IV Q8H PRN PRN Reason: N/V unrelieved by Reglan Last Admin: 05/01/21 03:53 Dose: 4 mg Documented by: Oxycodone/Acetaminophen (Oxycodone /Acetaminophen 5-325mg Tab) 1 tab PO Q6H PRN PRN Reason: Pain, Moderate (4-6) Pantoprazole Sodium (Pantoprazole 40 Mg Tab) 40 mg PO QDAY [facility] Peritoneal Dialysis Solution (Dialysate [place] 1.5% Soln 2000 Ml) 2,000 ml IP Q4HWA [facility] Pregabalin (Pregabalin 75 Mg Cap) 150 mg PO BID [facility] Last Admin: 05/01/21 09:54 Dose: 150 mg Documented by: Pregabalin (Pregabalin 50 Mg Cap) 50 mg PO BID [facility] Last Admin: 05/01/21 09:55 Dose: 50 mg Documented by: Sodium Chloride (Sodium Chloride 0.9% 10 Ml Flush Syringe) 10 ml IV BID [facility] Last Admin: 05/01/21 09:58 Dose: 10 ml Documented by: Sodium Chloride (Sodium Chloride 0.9% 10 Ml Flush Syringe) 10 ml IV PRN PRN PRN Reason: LINE FLUSH Tramadol HCl (Tramadol 50 Mg Tab) 50 mg PO Q4H PRN PRN Reason: Pain, Mild (1-3) Zolpidem Tartrate (Zolpidem 5 Mg Tab) 5 mg PO QHS PRN PRN Reason: Sleep Exam - Constitutional Vitals: Temp Pulse Resp BP Pulse Ox 97.0 F L 63 11 L 99/72 97 05/01/21 00:46 05/01/21 12:00 05/01/21 00:31 05/01/21 09:55 05/01/21 07:45 General appearance: Present: no acute distress, well-nourished - EENT Eyes: Present: PERRL, EOM intact ENT: hearing intact - Neck Neck: Present: supple, normal ROM - Respiratory Respiratory: bilateral: CTA Results - Labs CBC & Chem 7: 05/02/21 05:02 05/02/21 05:02 Labs: Abnormal lab results 05/01/21 05/01/21 05/01/21 Range/Units 00:25 00:25 11:18 RBC 3.22 L (3.65-5.03) M/mm3 Hgb 9.6 L (10.1-14.3) gm/dl Hct 29.4 L (30.3-42.9) % RDW 16.3 H 16.3 H (13.2-15.2) % [place] % (Auto) 7.4 H (0.0-7.3) % Carbon Dioxide 20 L (22-30) mmol/L BUN 50 H (7-17) mg/dL Creatinine 7.3 H (0.6-1.2) mg/dL Glucose 201 H (65-100) mg/dL Calcium 8.2 L (8.4-10.2) mg/dL Total Creatine Kinase 181 H (30-135) units/L 05/01/21 Range/Units 11:18 RBC (3.65-5.03) M/mm3 Hgb (10.1-14.3) gm/dl Hct (30.3-42.9) % RDW (13.2-15.2) % [place] % (Auto) (0.0-7.3) % Carbon Dioxide 20 L (22-30) mmol/L BUN 52 H (7-17) mg/dL Creatinine 7.3 H (0.6-1.2) mg/dL Glucose (65-100) mg/dL Calcium 7.4 L (8.4-10.2) mg/dL Total Creatine Kinase (30-135) units/L - Imaging and Cardiology Chest x-ray: image reviewed Assessment and Plan 70 y/o female with inferior ID 1. monitor for arrhythmias and hypotension 2. Standard post ID care (ASA, statin, BB, victor hugo) 3. Follow up echo for EF results 4. Hopeful transfer to [facility] floor later today.
--- NOTE | 2021-05-01 14:03 | Vascular Lab Report ---
DUPLEX DOPPLER LOWER EXTREMITY VEINS, BILATERAL INDICATION / CLINICAL INFORMATION: Right calf tenderness, swelling and warmth. TECHNIQUE: Duplex doppler imaging was performed through the veins of both lower extremities using venous mandeep surinder and other maneuvers. Suboptimal evaluation of the right groin due to bandages. COMPARISON: None available. FINDINGS: RIGHT COMMON FEMORAL VEIN: Negative. RIGHT FEMORAL VEIN: Negative. RIGHT POPLITEAL VEIN: Negative. RIGHT CALF VEINS: Negative. LEFT COMMON FEMORAL VEIN: Negative. LEFT FEMORAL VEIN: Negative. LEFT POPLITEAL VEIN: Negative. LEFT CALF VEINS: Negative. ADDITIONAL FINDINGS: No abnormal mass or fluid collection. IMPRESSION: No sonographic evidence for DVT in either lower extremity. Signer Name: Matty Hagan MD Signed: 05/01/2021 1:59 PM Workstation Name: [id number]
--- NOTE | 2021-05-01 14:26 | Event Note ---
Date: 05/01/21 Patient is comfortable, chest pain-free, sitting up in her bed in the ICU. She has been weaned off dopamine, blood pressure is 120 systolic. Heart rate is 62, sinus rhythm. ECG shows marked resolution of the presenting inferior ST elevation. The right groin cath site is well-healed, no hematoma and normal right leg pulses. Patient is stable for transfer to telemetry floor. Nephrology is on board for management of her dialysis treatments.
[2021-05-01] MEDS: DIALYSATE LO CAL 1.5% SOLN 2000 ML IP SCH ×3 (16:51→23:17)
[2021-05-02] MEDS: INSULIN GLARGINE 100 UNITS/ML SUB-Q SCH ×2 (01:15→21:11)
[2021-05-02 05:49] LABS: Basophils % (Auto) 0.5 % (0.0-1.8); Eosinophils # (Auto) 0.5 K/mm3 (0.0-0.4); Eosinophils % (Auto) 5.2 % (0.0-4.3); Hematocrit 33.4 % (30.3-42.9); Hemoglobin 10.6 gm/dl (10.1-14.3); Lymphocytes # (Auto) 2.1 K/mm3 (1.2-5.4); Lymphocytes % (Auto) 21.6 % (13.4-35.0); Mean Corpuscular HGB Conc 32 % (30-34); Mean Corpuscular Volume 93 fl (79-97); Monocytes # (Auto) 0.5 K/mm3 (0.0-0.8); Monocytes % (Auto) 5.5 % (0.0-7.3); Platelet Count 224 K/mm3 (140-440); Red Blood Count 3.61 M/mm3 (3.65-5.03); Red Cell Distribution Width 16.3 % (13.2-15.2)
[2021-05-02 06:08] LABS: Calcium 8.5 mg/dL (8.4-10.2); Chol/HDL Ratio 2.93 %
[2021-05-02] MEDS: DIALYSATE LO CAL 1.5% SOLN 2000 ML IP SCH ×5 (06:32→17:46)
[2021-05-02] MEDS: METOPROLOL TARTRATE 25 MG TAB PO SCH ×3 (07:42→21:10)
[2021-05-02] MEDS: LATANOPROST 0.005% OPHTH SOLN 2.5 ML OU SCH ×2 (08:35→21:13)
[2021-05-02] MEDS: ONDANSETRON 4 MG/2 ML INJ IV PRN (09:54)
--- NOTE | 2021-05-02 10:09 | Electrocardiograph Report ---
[facility] Test Date: 2021-05-01 Test Time: 03:42:48 Pat Name: ALICIA GARCIA Department: Room: A456 1 Gender: F Broiler Manager: REMIGIO : 1950 Requested By: SELIN BOWMAN Order Number: [id number] Reading MD: Joseluis Lilly Measurements Intervals [place] Rate: 74 P: 67 IA: 180 QRS: -7 QRSD: 112 T: -66 QT: 523 QTc: 579 Interpretive Statements Sinus rhythm Probable left ventricular hypertrophy ST elevation secondary to LVH Prolonged QT interval Compared to ECG 05/01/2021 00:25:30 Changes of evolving IWMI noted. Electronically Signed On 05-02-2021 10:09:25 EDT by Joseluis Lilly
--- NOTE | 2021-05-02 10:49 | Progress Note ---
Assessment and Plan 1. 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 She mostly uses APD 1.5% solution, 9 Lts and 4 exchanges overnight. Continue CAPD; 4 exchanges with 1.5% solution, 2 Lts each every 4 hours. Meds dosage based on GFR. 2. FEN: Monitor lytes and volume status. 3. Acute Inferior Lateral STEMI: Complete occlusion of RCA after posterior descending branch leading to a large posterolateral branch. S/p emergency cardiac catheterization ( EF 40-45%) with angioplasty and deployment of serial drug-eluting stents. Plavix, Statin, Aspirin, Nitrate, BB. Echo; EF 60%, LVH. 4. Anemia: Epogen as needed. 5. HTN. 6. Type 2 DM. Subjective: Patient was seen and examined at the bedside. Examination: General appearance: well-developed, well-nourished, appears stated age, not in distress HEENT: ATNC, MATT, mucous membranes moist, hearing intact, vision intact Neck: supple, trachea midline Respiratory: Clear to Ascultation Cardiology: regular, S1S2, no murmur Gastrointestinal: normoactive bowel sounds, not tender, not distended, PD catheter noted Integumentary: no rash, warm and dry Neurologic: no focal deficit, no asterixis, alert and oriented x3 Ext: no edema Psychiatric: cooperative Subjective Date of service: 05/02/21 Objective - Vital Signs Vital signs: Vital Signs - 12hr 05/02/21 05/02/21 05/02/21 00:08 04:00 07:42 Temperature 98.2 F 97.7 F Pulse Rate 62 74 Respiratory 18 17 Rate Blood Pressure 112/57 107/52 114/66 O2 Sat by Pulse 98 Oximetry 05/02/21 05/02/21 07:54 09:49 Temperature 98.0 F Pulse Rate 71 Respiratory 19 Rate Blood Pressure 128/67 O2 Sat by Pulse 100 98 Oximetry - Lab 05/02/21 05:02 05/02/21 05:02 Most recent lab results Calcium 8.5 mg/dL (8.4-10.2) 05/02/21 05:02 Medications & Allergies - Medications Allergies/Adverse Reactions: Allergies Penicillins Allergy (Verified 08/30/18 08:25) Itching Home Medications: Home Medications Medication Instructions Recorded Confirmed Last Taken Type Albuterol Sulfate [Ventolin Hfa] 2 puff IH Q6H PRN 08/30/18 05/02/21 10/08/18 History Amlodipine Besylate [Norvasc] 5 mg PO QDAY 08/30/18 05/02/21 10/08/18 History HYDROcodone/APAP 7.5-325 [[place] 1 each PO DAILY PRN 08/30/18 05/02/21 10/06/18 History 7.5-325 mg TAB] Hydralazine HCl 50 mg PO BID 08/30/18 05/02/21 10/08/18 History Latanoprost 0.005% 1 drop OU QPM 08/30/18 05/02/21 10/08/18 History Pantoprazole [Protonix TAB] 40 mg PO QDAY 08/30/18 05/02/21 10/08/18 History Pregabalin [Lyrica] 200 mg PO BID 08/30/18 05/02/21 10/08/18 History cloNIDine [Catapres] 0.2 mg PO QHS 08/30/18 05/02/21 10/08/18 History tiZANidine [Zanaflex 4mg TAB] 4 mg PO DAILY PRN 08/30/18 05/02/21 10/08/18 History Furosemide [Lasix TAB] 40 mg PO DAILY #30 tablet 10/06/18 05/02/21 10/08/18 Rx Insulin Glargine [Lantus VIAL] 25 units SUB-Q QHS #1 vial 10/06/18 05/02/21 10/08/18 Rx Insulin Lispro [HumaLOG VIAL] 0 units SQ AC #1 vial 10/06/18 05/02/21 10/08/18 Rx Potassium Chloride [K-Dur] 20 meq PO QDAY #30 tablet 10/06/18 05/02/21 10/08/18 Rx Aspirin EC [Halfprin EC] 81 mg PO QDAY #90 tablet 05/02/21 Unknown Rx AtorvaSTATin [Lipitor] 40 mg PO QHS #90 tablet 05/02/21 Unknown Rx Clopidogrel [Plavix] 75 mg PO QDAY #90 tablet 05/02/21 Unknown Rx ISOSORBIDE MONOnitrate [Imdur ER] 30 mg PO QDAY #90 tablet 05/02/21 Unknown Rx Metoprolol [Lopressor TAB] 25 mg PO Q8HR #90 tablet 05/02/21 Unknown Rx Active Medications: Generic Name Dose Route Start Last Admin Trade Name Freq PRN Reason Stop Dose Admin Acetaminophen 650 mg 05/01/21 02:07 Acetaminophen 325 Mg Tab PO Q4H PRN Pain MILD(1-3)/Fever >100.5/PÉREZ Aspirin 81 mg 05/01/21 10:00 05/01/21 09:54 Aspirin Ec 81 Mg Tab PO 81 mg QDAY [facility] Administration Atorvastatin Calcium 40 mg 05/01/21 22:00 05/01/21 22:43 Atorvastatin 40 Mg Tab PO 40 mg QHS [facility] Administration Clopidogrel Bisulfate 75 mg 05/02/21 10:00 Clopidogrel 75 Mg Tab PO QDAY [facility] Hydralazine HCl 50 mg 05/01/21 10:00 05/01/21 22:49 Hydralazine 25 Mg Tab PO 50 mg BID [facility] Administration Hydromorphone HCl 0.5 mg 05/01/21 03:27 Hydromorphone 1 Mg/1 Ml Inj IV Q3H PRN Pain , Severe (7-10) Dopamine HCl/Dextrose 800 mg in 250 mls @ 2.685 mls/hr 05/01/21 02:11 05/01/21 03:30 Intropin Drip 800 Mg/D5w 250 Ml IV 05/04/21 23:17 Not Given TITR ONE Protocol 2 MCG/KG/MIN Insulin Glargine 25 units 05/01/21 22:00 05/02/21 01:15 Insulin Glargine 100 Units/Ml SUB-Q 25 units QHS [facility] Administration Isosorbide Mononitrate 30 mg 05/01/21 10:00 05/01/21 09:55 Isosorbide Mononitrate Er 30 Mg Tab PO 30 mg QDAY [facility] Administration Latanoprost 1 drops 05/01/21 22:00 05/02/21 08:35 Latanoprost 0.005% Ophth Soln 2.5 Ml OU Not Given [facility] Metoprolol Tartrate 25 mg 05/01/21 04:30 05/02/21 07:42 Metoprolol Tartrate 25 Mg Tab PO 25 mg Q8HR [facility] Administration Morphine Sulfate 2 mg 05/01/21 03:27 05/01/21 15:49 Morphine 2 Mg/1 Ml Inj IV 2 mg Q4H PRN Administration Pain, Moderate (4-6) Ondansetron HCl 4 mg 05/01/21 02:07 05/02/21 09:54 Ondansetron 4 Mg/2 Ml Inj IV 4 mg Q8H PRN Administration N/V unrelieved by Anna Oxycodone/Acetaminophen 1 tab 05/01/21 03:27 Oxycodone /Acetaminophen 5-325mg Tab PO Q6H PRN Pain, Moderate (4-6) Pantoprazole Sodium 40 mg 05/02/21 10:00 Pantoprazole 40 Mg Tab PO QDAY [facility] Peritoneal Dialysis Solution 2,000 ml 05/01/21 22:00 05/02/21 06:32 Dialysate [place] 1.5% Soln 2000 Ml IP 2,000 ml Q4HWA@0600,1000,1400,1800,2200 [facility] Administration Pregabalin 150 mg 05/01/21 10:00 05/01/21 22:43 Pregabalin 75 Mg Cap PO 150 mg BID [facility] Administration Pregabalin 50 mg 05/01/21 10:00 05/01/21 22:43 Pregabalin 50 Mg Cap PO 50 mg BID [facility] Administration Sodium Chloride 10 ml 05/01/21 10:00 05/01/21 22:45 Sodium Chloride 0.9% 10 Ml Flush Syringe IV 10 ml BID [facility] Administration Sodium Chloride 10 ml 05/01/21 03:27 Sodium Chloride 0.9% 10 Ml Flush Syringe IV PRN PRN LINE FLUSH Tramadol HCl 50 mg 05/01/21 02:07 Tramadol 50 Mg Tab PO Q4H PRN Pain, Mild (1-3) Zolpidem Tartrate 5 mg 05/01/21 02:07 Zolpidem 5 Mg Tab PO QHS PRN Sleep
[2021-05-02] MEDS: PREGABALIN 75 MG CAP PO SCH ×2 (11:54→21:10)
[2021-05-02] MEDS: ASPIRIN EC 81 MG TAB PO SCH (11:54)
[2021-05-02] MEDS: CLOPIDOGREL 75 MG TAB PO SCH (11:54)
[2021-05-02] MEDS: hydrALAZINE 25 MG TAB PO SCH ×2 (11:54→21:10)
[2021-05-02] MEDS: PANTOPRAZOLE 40 MG TAB PO SCH (11:55)
[2021-05-02] MEDS: PREGABALIN 50 MG CAP PO SCH ×2 (11:55→21:10)
--- NOTE | 2021-05-02 12:06 | XRay Report ---
CHEST 1 VIEW 1019 INDICATION / CLINICAL INFORMATION: post pci COMPARISON: 05/01/2021 FINDINGS: SUPPORT DEVICES: None HEART / MEDIASTINUM: Stable LUNGS / PLEURA: No significant pulmonary or pleural abnormality. No pneumothorax. ADDITIONAL FINDINGS: No significant additional findings. Signer Name: Sekou Mark MD Signed: 05/02/2021 12:01 PM Workstation Name: [id number]
--- NOTE | 2021-05-02 12:14 | Progress Note ---
Assessment and Plan 70 y/o female with inferior MS 05/02/21: Stable pulm status, will sign off. Call if questions. 1. monitor for arrhythmias and hypotension 2. Standard post MS care (ASA, statin, BB, victor hugo) 3. Follow up echo for EF results 4. Hopeful transfer to tele floor later today. Subjective Date of service: 05/02/21 Interval history: No acute events. Stable transfer to floor. Good O2 sats and no pulm issues. Objective Vital Signs - 12hr 05/02/21 05/02/21 05/02/21 04:00 07:42 07:54 Temperature 97.7 F 98.0 F Pulse Rate 62 74 71 Respiratory 17 19 Rate Blood Pressure 107/52 114/66 128/67 O2 Sat by Pulse 98 100 Oximetry 05/02/21 09:49 Temperature Pulse Rate Respiratory Rate Blood Pressure O2 Sat by Pulse 98 Oximetry CBC and BMP: 05/02/21 05:02 05/02/21 05:02 ABG, PT/INR, D-dimer: PT/INR, D-dimer PT 13.4 Sec. (12.2-14.9) 05/01/21 00:25 INR 0.97 (0.87-1.13) 05/01/21 00:25 Abnormal lab findings: Abnormal Labs 05/01/21 05/01/21 05/01/21 00:25 00:25 11:18 RBC 3.22 L Hgb 9.6 L Hct 29.4 L RDW 16.3 H 16.3 H [place] % (Auto) 7.4 H Eos % (Auto) Eos # (Auto) Sodium Chloride Carbon Dioxide 20 L BUN 50 H Creatinine 7.3 H Glucose 201 H POC Glucose Calcium 8.2 L Total Creatine Kinase 181 H Troponin T Triglycerides 05/01/21 05/01/21 05/02/21 11:18 22:02 05:02 RBC 3.61 L Hgb Hct RDW 16.3 H [place] % (Auto) Eos % (Auto) 5.2 H Eos # (Auto) 0.5 H Sodium Chloride Carbon Dioxide 20 L BUN 52 H Creatinine 7.3 H Glucose 211 H POC Glucose 215 H Calcium 7.4 L Total Creatine Kinase Troponin T Triglycerides 05/02/21 05/02/21 05/02/21 05:02 05:02 06:33 RBC Hgb Hct RDW [place] % (Auto) Eos % (Auto) Eos # (Auto) Sodium 136 L Chloride 95.4 L Carbon Dioxide BUN 48 H Creatinine 7.7 H Glucose 154 H POC Glucose Calcium Total Creatine Kinase Troponin T 8.240 H* D 5.610 H* D Triglycerides 178 H
--- NOTE | 2021-05-02 13:28 | Progress Note ---
Assessment and Plan - Patient Problems (1) STEMI (ST elevation myocardial infarction) Current Visit: Yes Status: Acute Qualifiers: Involved coronary artery: other inferior wall coronary artery Qualified Code(s): I21.19 - ST elevation (STEMI) myocardial infarction involving other coronary artery of inferior wall Plan to address problem: Presented with acute inferior wall STEMI, underwent successful primary angioplasty and stenting of the distal right coronary occlusion. Left ventricular systolic ejection fraction is well-preserved, continue guideline directed medical therapy including dual oral antiplatelet therapy. Patient has end-stage renal disease on peritoneal dialysis, ongoing management by nephrology. From a cardiac standpoint, patient will be stable for discharge tomorrow. Subjective Date of service: 05/02/21 Interval history: Patient is comfortable, no cardiac complaints, looks and feels better, tolerating guideline directed medical therapy. Objective Vital Signs Temp Pulse Resp BP Pulse Ox 05/02/21 12:00 26 L 05/02/21 11:59 97.8 F 26 L 19 136/73 95 05/02/21 09:49 98 05/02/21 08:00 26 L 05/02/21 07:54 98.0 F 71 19 128/67 100 05/02/21 07:42 74 114/66 05/02/21 04:00 97.7 F 62 17 107/52 98 05/02/21 00:08 98.2 F 18 112/57 05/01/21 22:49 61 138/71 05/01/21 19:57 97.9 F 62 18 120/69 100 05/01/21 17:50 60 13 101/56 96 05/01/21 17:40 60 15 101/56 98 05/01/21 17:30 62 14 101/56 93 05/01/21 17:20 68 15 101/56 96 05/01/21 17:10 67 14 101/56 95 05/01/21 17:00 70 13 101/56 94 05/01/21 16:50 69 11 L 101/56 91 05/01/21 16:40 72 13 101/56 90 05/01/21 16:30 71 17 101/56 91 05/01/21 16:20 71 10 L 101/56 96 05/01/21 16:10 71 12 101/56 90 05/01/21 16:00 77 18 103/58 92 05/01/21 15:50 78 12 103/58 95 07/15/21 15:49 18 05/01/21 15:40 70 19 103/58 97 05/01/21 15:30 74 14 103/58 94 05/01/21 15:20 85 18 103/58 96 05/01/21 15:10 70 15 103/58 95 05/01/21 15:00 71 30 H 103/58 94 05/01/21 14:50 69 11 L 103/58 94 05/01/21 14:49 69 103/58 05/01/21 14:40 70 13 103/58 93 05/01/21 14:30 69 14 103/58 94 05/01/21 14:20 68 11 L 101/59 98 05/01/21 14:10 65 10 L 101/59 97 05/01/21 14:00 65 16 101/59 98 05/01/21 13:50 67 15 109/56 97 05/01/21 13:40 64 12 119/62 98 05/01/21 13:30 65 19 119/62 95 - Physical Examination General: No Apparent Distress HEENT: Positive: PERRL Neck: Positive: neck supple Cardiac: Positive: Reg Rate and Rhythm Lungs: Positive: clear to auscultation Neuro: Positive: Grossly Intact Abdomen: Positive: Soft Skin: Positive: Clear Extremities: Absent: edema - Labs and Meds Lipids 05/02/21 Range/Units 05:02 Triglycerides 178 H (2-149) mg/dL Cholesterol 126 (50-199) mg/dL HDL Cholesterol 43 (40-59) mg/dL Cholesterol/HDL Ratio 2.93 % CBC 05/02/21 Range/Units 05:02 WBC 9.7 (4.5-11.0) K/mm3 RBC 3.61 L (3.65-5.03) M/mm3 Hgb 10.6 (10.1-14.3) gm/dl Hct 33.4 (30.3-42.9) % Plt Count 224 (140-440) K/mm3 Lymph # (Auto) 2.1 (1.2-5.4) K/mm3 [place] # (Auto) 0.5 (0.0-0.8) K/mm3 Eos # (Auto) 0.5 H (0.0-0.4) K/mm3 Baso # (Auto) 0.0 (0.0-0.1) K/mm3 Comprehensive Metabolic Panel 05/01/21 05/02/21 Range/Units 11:18 05:02 Sodium 136 L (137-145) mmol/L Potassium 4.0 (3.6-5.0) mmol/L Chloride 95.4 L (98-107) mmol/L Carbon Dioxide 24 (22-30) mmol/L BUN 48 H (7-17) mg/dL Creatinine 7.7 H (0.6-1.2) mg/dL Glucose 211 H 154 H (65-100) mg/dL Calcium 8.5 (8.4-10.2) mg/dL
--- NOTE | 2021-05-02 14:18 | Progress Note ---
Assessment and Plan Assessment and plan: 70-year-old -[place] female who presents with acute chest pain/NSTEMI with RCA stent placement Acute Inferior Lateral STEMI, complete occlusion of RCA after posterior descending branch leading to a large posterolateral branch -Caridology consulted, appreciate recommendations -s/p emergency cardiac catheterization ( EF 40-45%) with angioplasty and deployment of serial drug-eluting stents -Plavix, Statin, Aspirin, Nitrate, BB -05/01 Echo pending -Lipid panel pending -05/01 troponin 0.027 -s/p dopamine gtt Peritoneal dialysis Nephrology consulted Peritoneal dialysis in the evening, currently tolerating HTN -Resume home hydralazine with hold parameters, hold amlodipine -Blood pressure monitoring per protocol High cholesterol -Statin Metabolic acidosis -Trend BMP -ESRD on PD DM type II -Resume home Lantus -Accu-Cheks -SSI -Resume home Lyrica DVT/GI prophylaxis: Protonix (home med), SCDs to BLE Full Code History Interval history: This is a 70-year-old female with DM, HTN, high cholesterol, ESRD on PD who presents the emergency department on 05/01 complaints of midsternal to left-sided chest pain starting around 2300 (1hr 50 min prior to presentation) and ECG from the field showed possible inferior STEMI and Public Health Educator was activated. 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 Patient was admitted to ICU with consults to [facility] and nephrology. 05/01: overnight pt complained of midsternal chest pain and was treated with morphine with relief. Today she complains of right> left leg tenderness, swelling, warmth. B LE dopplar US ordered to r/o DVT. 05/02/2021: No overnight events, patient doing well. Denies any chest pain. Cardiology states patient will be discharged tomorrow. Hospitalist Physical - Physical exam Narrative exam: General appearance: no acute distress, well-nourished EENT: PERRL, EOM intact, hearing intact, clear oral mucosa Neck: Present: supple, normal ROM Respiratory: bilateral CTA, negative: rales, rhonchi, wheezing Cardiovascular: Regular rate/rhythm, Normal S1 & S2. No gallop, rub Extremities: no ischemia, No edema, normal temperature, normal color, Full ROM Abdominal: Peritoneal access without any erythema or leakage, soft, no tenderness, non-distended, normal bowel sounds Integumentary: Present: clear, warm, dry no wounds, no erythema noted Psychiatric: appropriate mood/affect, intact judgment & insight Neurologic: CNII-XII intact, moves all extremities, no sensory or motor abnormalities - Constitutional Vitals: Temp Pulse Resp BP Pulse Ox 97.8 F 26 L 19 136/73 95 05/02/21 11:59 05/02/21 12:00 05/02/21 11:59 05/02/21 11:59 05/02/21 11:59 HEART Score - HEART Score EKG: Significant ST-depression Age: > 65 Risk factors: > 3 risk factors or hx of atherosclerotic disease Troponin: Troponin T 5.610 ng/mL (0.00-0.029) H* D 05/02/21 06:33 Troponin: < normal limit - Critical Actions Critical Actions: >7 pts:50-65% risk of adverse cardiac event. Early invasive measures Results - Labs CBC & Chem 7: 05/02/21 05:02 05/02/21 05:02 Labs: Laboratory Last Values WBC 9.7 K/mm3 (4.5-11.0) 05/02/21 05:02 RBC 3.61 M/mm3 (3.65-5.03) L 05/02/21 05:02 Hgb 10.6 gm/dl (10.1-14.3) 05/02/21 05:02 Hct 33.4 % (30.3-42.9) 05/02/21 05:02 MCV 93 fl (79-97) 05/02/21 05:02 MCH 29 pg (28-32) 05/02/21 05:02 MCHC 32 % (30-34) 05/02/21 05:02 RDW 16.3 % (13.2-15.2) H 05/02/21 05:02 Plt Count 224 K/mm3 (140-440) 05/02/21 05:02 Lymph % (Auto) 21.6 % (13.4-35.0) 05/02/21 05:02 [place] % (Auto) 5.5 % (0.0-7.3) 05/02/21 05:02 Eos % (Auto) 5.2 % (0.0-4.3) H 05/02/21 05:02 Baso % (Auto) 0.5 % (0.0-1.8) 05/02/21 05:02 Lymph # (Auto) 2.1 K/mm3 (1.2-5.4) 05/02/21 05:02 [place] # (Auto) 0.5 K/mm3 (0.0-0.8) 05/02/21 05:02 Eos # (Auto) 0.5 K/mm3 (0.0-0.4) H 05/02/21 05:02 Baso # (Auto) 0.0 K/mm3 (0.0-0.1) 05/02/21 05:02 Seg Neutrophils % 67.2 % (40.0-70.0) 05/02/21 05:02 Seg Neutrophils # 6.5 K/mm3 (1.8-7.7) 05/02/21 05:02 PT 13.4 Sec. (12.2-14.9) 05/01/21 00:25 INR 0.97 (0.87-1.13) 05/01/21 00:25 APTT 34.4 Sec. (24.2-36.6) 05/01/21 00:25 Sodium 136 mmol/L (137-145) L 05/02/21 05:02 Potassium 4.0 mmol/L (3.6-5.0) 05/02/21 05:02 Chloride 95.4 mmol/L (98-107) L 05/02/21 05:02 Carbon Dioxide 24 mmol/L (22-30) 05/02/21 05:02 Anion Gap 21 mmol/L 05/02/21 05:02 BUN 48 mg/dL (7-17) H 05/02/21 05:02 Creatinine 7.7 mg/dL (0.6-1.2) H 05/02/21 05:02 Estimated GFR 5 ml/min 05/02/21 05:02 BUN/Creatinine Ratio 6 % 05/02/21 05:02 Glucose 154 mg/dL (65-100) H 05/02/21 05:02 POC Glucose 215 mg/dL (70-105) H 05/01/21 22:02 Calcium 8.5 mg/dL (8.4-10.2) 05/02/21 05:02 Total Creatine Kinase 181 units/L (30-135) H 05/01/21 00:25 CK-MB (CK-2) 3.8 ng/mL (0.0-4.0) 05/01/21 00:25 CK-MB (CK-2) Rel Index 2.0 (0-4) 05/01/21 00:25 Troponin T 5.610 ng/mL (0.00-0.029) H* D 05/02/21 06:33 Triglycerides 178 mg/dL (2-149) H 05/02/21 05:02 Cholesterol 126 mg/dL (50-199) 05/02/21 05:02 LDL Cholesterol Direct 62 mg/dL (50-130) 05/02/21 05:02 HDL Cholesterol 43 mg/dL (40-59) 05/02/21 05:02 Cholesterol/HDL Ratio 2.93 % 05/02/21 05:02 Blood Type B POSITIVE 05/01/21 00:25 Antibody Screen Negative 05/01/21 00:25 Active Medications - Current Medications Current Medications: Generic Name Dose Route Start Last Admin Trade Name Freq PRN Reason Stop Dose Admin Acetaminophen 650 mg 05/01/21 02:07 Acetaminophen 325 Mg Tab PO Q4H PRN Pain MILD(1-3)/Fever >100.5/PÉREZ Aspirin 81 mg 05/01/21 10:00 05/02/21 11:54 Aspirin Ec 81 Mg Tab PO 81 mg QDAY LADAN Administration Atorvastatin Calcium 40 mg 05/01/21 22:00 05/01/21 22:43 Atorvastatin 40 Mg Tab PO 40 mg QHS LADAN Administration Clopidogrel Bisulfate 75 mg 05/02/21 10:00 05/02/21 11:54 Clopidogrel 75 Mg Tab PO 75 mg QDAY LADAN Administration Hydralazine HCl 50 mg 05/01/21 10:00 05/02/21 11:54 Hydralazine 25 Mg Tab PO 50 mg BID LADAN Administration Hydromorphone HCl 0.5 mg 05/01/21 03:27 Hydromorphone 1 Mg/1 Ml Inj IV Q3H PRN Pain , Severe (7-10) Dopamine HCl/Dextrose 800 mg in 250 mls @ 2.685 mls/hr 05/01/21 02:11 05/01/21 03:30 Intropin Drip 800 Mg/D5w 250 Ml IV 05/04/21 23:17 Not Given TITR ONE Protocol 2 MCG/KG/MIN Insulin Glargine 25 units 05/01/21 22:00 05/02/21 01:15 Insulin Glargine 100 Units/Ml SUB-Q 25 units QHS LADAN Administration Isosorbide Mononitrate 30 mg 05/01/21 10:00 05/02/21 11:54 Isosorbide Mononitrate Er 30 Mg Tab PO 30 mg QDAY LADAN Administration Latanoprost 1 drops 05/01/21 22:00 05/02/21 08:35 Latanoprost 0.005% Ophth Soln 2.5 Ml OU Not Given QHS LADAN Metoprolol Tartrate 25 mg 05/01/21 04:30 05/02/21 07:42 Metoprolol Tartrate 25 Mg Tab PO 25 mg Q8HR LADAN Administration Morphine Sulfate 2 mg 05/01/21 03:27 05/01/21 15:49 Morphine 2 Mg/1 Ml Inj IV 2 mg Q4H PRN Administration Pain, Moderate (4-6) Ondansetron HCl 4 mg 05/01/21 02:07 05/02/21 09:54 Ondansetron 4 Mg/2 Ml Inj IV 4 mg Q8H PRN Administration N/V unrelieved by Anna Oxycodone/Acetaminophen 1 tab 05/01/21 03:27 Oxycodone /Acetaminophen 5-325mg Tab PO Q6H PRN Pain, Moderate (4-6) Pantoprazole Sodium 40 mg 05/02/21 10:00 05/02/21 11:55 Pantoprazole 40 Mg Tab PO 40 mg QDAY LADAN Administration Peritoneal Dialysis Solution 2,000 ml 05/01/21 22:00 05/02/21 10:30 Dialysate [place] 1.5% Soln 2000 Ml IP 2,000 ml Q4HWA@0600,1000,1400,1800,2200 LADAN Administration Pregabalin 150 mg 05/01/21 10:00 05/02/21 11:54 Pregabalin 75 Mg Cap PO 150 mg BID LADAN Administration Pregabalin 50 mg 05/01/21 10:00 05/02/21 11:55 Pregabalin 50 Mg Cap PO 50 mg BID LADAN Administration Sodium Chloride 10 ml 05/01/21 10:00 05/02/21 11:56 Sodium Chloride 0.9% 10 Ml Flush Syringe IV 10 ml BID LADAN Administration Sodium Chloride 10 ml 05/01/21 03:27 05/02/21 11:55 Sodium Chloride 0.9% 10 Ml Flush Syringe IV 10 ml PRN PRN Administration LINE FLUSH Tramadol HCl 50 mg 05/01/21 02:07 Tramadol 50 Mg Tab PO Q4H PRN Pain, Mild (1-3) Zolpidem Tartrate 5 mg 05/01/21 02:07 Zolpidem 5 Mg Tab PO QHS PRN Sleep Nutrition/Malnutrition Assess - Dietary Evaluation Nutrition/Malnutrition Findings: Nutrition Notes Start: 05/01/21 10:44 Freq: Status: Active Protocol: Document 05/01/21 10:44 (Rec: 05/01/21 10:55 [email or web address]) Nutrition Notes Need for Assessment generated from: managed services consultant Initial or Follow up Assessment Current Diagnosis CKD (stage V CKD),Diabetes, Hypertension,Heart Failure, Hyperlipidemia Other Pertinent Diagnosis STEMI Current Diet Cardiac, Consistent CHO Labs/Tests BUN 50 Cr 7.3 BG 201 Pertinent Medications Zofran Height 5 ft 3 in Weight 71.6 kg [place] Body Weight (kg) 52.27 BMI 27.9 Weight change and time frame Pt does not appear to be 54kg, likely bedscale error. Previous wt recorded at 71.6kg , likely more accurate. Pt reports UBW of 66-68kg. 5 months ago she was 90.9kg. 21% wt loss in 5 months. Weight Status Overweight Subjective/Other Information RN screen for chewing difficulty. Pt food prefrences noted. Pt states it feels like food gets stuck in her throat. No coughing. RN informed. Pt relates wt loss to metallic taste in mouth and starting PD. Burn Absent Trauma Absent GI Symptoms None Current % PO Poor (25-49%) Minimum of two criteria Yes Energy Intake (non-severe) <75% Estimated Energy Requirement >7 days Interpretation of Weight Loss (severe) >10% in 6 months #1 Nutrition Diagnosis Malnutrition Etiology chronic disease As Evidenced by Signs and Symptoms <75% ERR in >7 days, >10% wt loss in 6 months. Is patient on ventilator? No Is Patient Ambulatory and/or Out of Bed No REE-(Britt-St. Jeor-confined to bed) 1440.204 Calculation Used for Recommendations Silvano Celis Additional Notes Protein: (1.2-1.5g/kg) 86-108g Fluid: 1 ml/kcal or per MD Nutrition Intervention Change Diet Order: Continue Add Supplement/Snack (indicate name/kcal Nepro BID /protein ) Provides kCal: 850 Provides Protein (gm) 38 Goal #1 Meet at least 75% of energy and protein needs via PO and ONS Anticipated Discharge Needs: Renal, consistent CHO Follow-Up By: 05/05/21 Additional Comments FU for intakes and ONS tolerance
[2021-05-03] MEDS: LATANOPROST 0.005% OPHTH SOLN 2.5 ML OU SCH (00:15)
[2021-05-03] MEDS: METOPROLOL TARTRATE 25 MG TAB PO SCH ×2 (06:27→06:33)
[2021-05-03 06:53] LABS: Calcium 8.2 mg/dL (8.4-10.2)
[2021-05-03] MEDS: DIALYSATE LO CAL 1.5% SOLN 2000 ML IP SCH ×2 (06:56→11:57)
[2021-05-03 08:37] VITALS: BP 108/50
--- NOTE | 2021-05-03 09:37 | Discharge Summary ---
Providers - Providers Date of Admission: 05/01/21 01:29 Date of discharge: 05/03/21 Attending physician: SELIN BOWMAN MD 05/01/21 Consult to Cardiac Rehabilitation [CONS] Routine Reason For Exam: post pci 05/01/21 01:27 Consult to Physician [CONS] Routine Comment: Consulting Provider: ELISA ABBOTT Physician Instructions: Reason For Exam: STEMI, ICU Management post LHC 05/01/21 02:17 Consult to Physician [CONS] Routine Comment: Consulting Provider: SANTINO CHARLES Physician Instructions: Reason For Exam: ESRF on PD Primary care physician: BONSAI CULTURIST Hospitalization Condition: Good Hospital course: 70-year-old -[place] female who presents with acute chest pain/NSTEMI with RCA stent placement Acute Inferior Lateral STEMI, complete occlusion of RCA after posterior descending branch leading to a large posterolateral branch -Caridology consulted, appreciate recommendations -s/p emergency cardiac catheterization ( EF 40-45%) with angioplasty and deployment of serial drug-eluting stents -Plavix, Statin, Aspirin, Nitrate, BB -05/01 Echo pending -Lipid panel pending -05/01 troponin 0.027 -s/p dopamine gtt Peritoneal dialysis Nephrology consulted Peritoneal dialysis in the evening, currently tolerating HTN -Resume home hydralazine with hold parameters, hold amlodipine -Blood pressure monitoring per protocol High cholesterol -Statin Metabolic acidosis -Trend BMP -ESRD on PD DM type II -Resume home Lantus -Accu-Cheks -SSI -Resume home Lyrica History Interval history: This is a 70-year-old female with DM, HTN, high cholesterol, ESRD on PD who presents the emergency department on 05/01 complaints of midsternal to left-sided chest pain starting around 2300 (1hr 50 min prior to presentation) and ECG from the field showed possible inferior STEMI and Architect Internship was activated. 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 Patient was admitted to ICU with consults to [facility] and nephrology. 05/01: overnight pt complained of midsternal chest pain and was treated with morphine with relief. Today she complains of right> left leg tenderness, swelling, warmth. B LE dopplar US ordered to r/o DVT. 05/02/2021: No overnight events, patient doing well. Denies any chest pain. Cardiology states patient will be discharged tomorrow. 05/03/2021: No overnight events, patient denies any chest pain. Cardiology stated patient was stable for discharge and follow-up in the outpatient setting. Disposition: -01 TO HOME OR SELFCARE Final Discharge Diagnosis (Prints w/discharge instructions): Acute inferior lateral STEMI. Occlusion of the RCA. Status post cardiac catheterization with PCI and angioplasty and drug-eluting stent placement. Peritoneal dialysis. Hypertension. Hyperlipidemia. Metabolic acidosis. Diabetes mellitus type 2. Peripheral neuropathy Time spent for discharge: 35 minutes Core Measure Documentation - Palliative Care Palliative Care/ Comfort Measures: Not Applicable - Core Measures Any of the following diagnoses?: none Exam - Physical Exam Narrative exam: General appearance: no acute distress, well-nourished EENT: PERRL, EOM intact, hearing intact, clear oral mucosa Neck: Present: supple, normal ROM Respiratory: bilateral CTA, negative: rales, rhonchi, wheezing Cardiovascular: Regular rate/rhythm, Normal S1 & S2. No gallop, rub Extremities: no ischemia, No edema, normal temperature, normal color, Full ROM Abdominal: Peritoneal access without any erythema or leakage, soft, no tenderness, non-distended, normal bowel sounds Integumentary: Present: clear, warm, dry no wounds, no erythema noted Psychiatric: appropriate mood/affect, intact judgment & insight Neurologic: CNII-XII intact, moves all extremities, no sensory or motor abnormalities - Constitutional Vitals: Temp Pulse Resp BP Pulse Ox 97.9 F 75 18 108/50 94 05/03/21 07:44 05/03/21 07:44 05/03/21 07:44 05/03/21 07:44 05/03/21 07:44 Plan Activity: no restrictions Weight Bearing Status: Weight Bear as Tolerated Diet: low salt, renal Follow up with: JARAD RODRÍGUEZ MD [Staff Physician] - 14 Days (Please follow-up with the procurement internship. Call to make an appointment.) PRIMARY CAREMD [Primary Care Provider] - 3-5 Days Prescriptions: AtorvaSTATin [Lipitor] 40 mg PO QHS #90 tablet Aspirin EC [Halfprin EC] 81 mg PO QDAY #90 tablet ISOSORBIDE MONOnitrate [Imdur ER] 30 mg PO QDAY #90 tablet Metoprolol [Lopressor TAB] 25 mg PO Q8HR #90 tablet Clopidogrel [Plavix] 75 mg PO QDAY #90 tablet
--- NOTE | 2021-05-03 09:46 | Progress Note ---
Assessment and Plan 1. 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 She mostly uses APD 1.5% solution, 9 Lts and 4 exchanges overnight. Continue CAPD; 4 exchanges with 1.5% solution, 2 Lts each every 4 hours. Meds dosage based on GFR. 2. FEN: Monitor lytes and volume status. 3. Acute Inferior Lateral STEMI: Complete occlusion of RCA after posterior descending branch leading to a large posterolateral branch. S/p emergency cardiac catheterization ( EF 40-45%) with angioplasty and deployment of serial drug-eluting stents. Plavix, Statin, Aspirin, Nitrate, BB. Echo; EF 60%, LVH. 4. Anemia: Epogen as needed. 5. HTN. 6. Type 2 DM. Subjective: Patient was seen and examined at the chairside. Examination: General appearance: well-developed, well-nourished, appears stated age, not in distress HEENT: ATNC, MATT, mucous membranes moist, hearing intact Neck: supple, trachea midline Respiratory: Clear to Ascultation Cardiology: regular, S1S2, no murmur Gastrointestinal: normoactive bowel sounds, not tender, PD catheter noted Integumentary: no rash, warm and dry Neurologic: no focal deficit, no asterixis, alert and oriented x3 Ext: no edema Psychiatric: cooperative Subjective Date of service: 05/03/21 Objective - Vital Signs Vital signs: Vital Signs - 12hr 05/02/21 05/03/21 05/03/21 22:02 06:33 07:44 Temperature 97.9 F Pulse Rate 68 75 Respiratory 18 Rate Blood Pressure 98/53 108/50 O2 Sat by Pulse 96 94 Oximetry - Lab 05/02/21 05:02 05/03/21 05:48 Most recent lab results Calcium 8.2 mg/dL (8.4-10.2) L 05/03/21 05:48 Medications & Allergies - Medications Allergies/Adverse Reactions: Allergies Penicillins Allergy (Verified 08/30/18 08:25) Itching Home Medications: Home Medications Medication Instructions Recorded Confirmed Last Taken Type Albuterol Sulfate [Ventolin Hfa] 2 puff IH Q6H PRN 08/30/18 05/02/21 10/08/18 History Amlodipine Besylate [Norvasc] 5 mg PO QDAY 08/30/18 05/02/21 10/08/18 History HYDROcodone/APAP 7.5-325 [[place] 1 each PO DAILY PRN 08/30/18 05/02/21 10/06/18 History 7.5-325 mg TAB] Hydralazine HCl 50 mg PO BID 08/30/18 05/02/21 10/08/18 History Latanoprost 0.005% 1 drop OU QPM 08/30/18 05/02/21 10/08/18 History Pantoprazole [Protonix TAB] 40 mg PO QDAY 08/30/18 05/02/21 10/08/18 History Pregabalin [Lyrica] 200 mg PO BID 08/30/18 05/02/21 10/08/18 History cloNIDine [Catapres] 0.2 mg PO QHS 08/30/18 05/02/21 10/08/18 History tiZANidine [Zanaflex 4mg TAB] 4 mg PO DAILY PRN 08/30/18 05/02/21 10/08/18 History Furosemide [Lasix TAB] 40 mg PO DAILY #30 tablet 10/06/18 05/02/21 10/08/18 Rx Insulin Glargine [Lantus VIAL] 25 units SUB-Q QHS #1 vial 10/06/18 05/02/21 10/08/18 Rx Insulin Lispro [HumaLOG VIAL] 0 units SQ AC #1 vial 10/06/18 05/02/21 10/08/18 Rx Potassium Chloride [K-Dur] 20 meq PO QDAY #30 tablet 10/06/18 05/02/21 10/08/18 Rx Aspirin EC [Halfprin EC] 81 mg PO QDAY #90 tablet 05/02/21 Unknown Rx AtorvaSTATin [Lipitor] 40 mg PO QHS #90 tablet 05/02/21 Unknown Rx Clopidogrel [Plavix] 75 mg PO QDAY #90 tablet 05/02/21 Unknown Rx ISOSORBIDE MONOnitrate [Imdur ER] 30 mg PO QDAY #90 tablet 05/02/21 Unknown Rx Metoprolol [Lopressor TAB] 25 mg PO Q8HR #90 tablet 05/02/21 Unknown Rx Active Medications: Generic Name Dose Route Start Last Admin Trade Name Freq PRN Reason Stop Dose Admin Acetaminophen 650 mg 05/01/21 02:07 Acetaminophen 325 Mg Tab PO Q4H PRN Pain MILD(1-3)/Fever >100.5/PÉREZ Aspirin 81 mg 05/01/21 10:00 05/02/21 11:54 Aspirin Ec 81 Mg Tab PO 81 mg QDAY [facility] Administration Atorvastatin Calcium 40 mg 05/01/21 22:00 05/02/21 21:09 Atorvastatin 40 Mg Tab PO 40 mg QHS LADAN Administration Clopidogrel Bisulfate 75 mg 05/02/21 10:00 05/02/21 11:54 Clopidogrel 75 Mg Tab PO 75 mg QDAY LADAN Administration Hydralazine HCl 50 mg 05/01/21 10:00 05/02/21 21:10 Hydralazine 25 Mg Tab PO 50 mg BID LADAN Administration Hydromorphone HCl 0.5 mg 05/01/21 03:27 05/02/21 17:48 Hydromorphone 1 Mg/1 Ml Inj IV 0.5 mg Q3H PRN Administration Pain , Severe (7-10) Dopamine HCl/Dextrose 800 mg in 250 mls @ 2.685 mls/hr 05/01/21 02:11 05/01/21 03:30 Intropin Drip 800 Mg/D5w 250 Ml IV 05/04/21 23:17 Not Given TITR ONE Protocol 2 MCG/KG/MIN Insulin Glargine 25 units 05/01/21 22:00 05/02/21 21:11 Insulin Glargine 100 Units/Ml SUB-Q 25 units QHS [facility] Administration Isosorbide Mononitrate 30 mg 05/01/21 10:00 05/02/21 11:54 Isosorbide Mononitrate Er 30 Mg Tab PO 30 mg QDAY [facility] Administration Latanoprost 1 drops 05/01/21 22:00 05/03/21 00:15 Latanoprost 0.005% Ophth Soln 2.5 Ml OU Not Given QHS [facility] Metoprolol Tartrate 25 mg 05/01/21 04:30 05/03/21 06:33 Metoprolol Tartrate 25 Mg Tab PO Not Given Q8HR [facility] Morphine Sulfate 2 mg 05/01/21 03:27 05/01/21 15:49 Morphine 2 Mg/1 Ml Inj IV 2 mg Q4H PRN Administration Pain, Moderate (4-6) Ondansetron HCl 4 mg 05/01/21 02:07 05/02/21 09:54 Ondansetron 4 Mg/2 Ml Inj IV 4 mg Q8H PRN Administration N/V unrelieved by Anna Oxycodone/Acetaminophen 1 tab 05/01/21 03:27 Oxycodone /Acetaminophen 5-325mg Tab PO Q6H PRN Pain, Moderate (4-6) Pantoprazole Sodium 40 mg 05/02/21 10:00 05/02/21 11:55 Pantoprazole 40 Mg Tab PO 40 mg QDAY LADAN Administration Peritoneal Dialysis Solution 2,000 ml 05/01/21 22:00 05/03/21 06:56 Dialysate [place] 1.5% Soln 2000 Ml IP 2,000 ml Q4HWA@0600,1000,1400,1800,2200 LADAN Administration Pregabalin 150 mg 05/01/21 10:00 05/02/21 21:10 Pregabalin 75 Mg Cap PO 150 mg BID LADAN Administration Pregabalin 50 mg 05/01/21 10:00 05/02/21 21:10 Pregabalin 50 Mg Cap PO 50 mg BID LADAN Administration Sodium Chloride 10 ml 05/01/21 10:00 05/02/21 21:11 Sodium Chloride 0.9% 10 Ml Flush Syringe IV 10 ml BID LADAN Administration Sodium Chloride 10 ml 05/01/21 03:27 05/02/21 11:55 Sodium Chloride 0.9% 10 Ml Flush Syringe IV 10 ml PRN PRN Administration LINE FLUSH Tramadol HCl 50 mg 05/01/21 02:07 Tramadol 50 Mg Tab PO Q4H PRN Pain, Mild (1-3) Zolpidem Tartrate 5 mg 05/01/21 02:07 05/02/21 21:09 Zolpidem 5 Mg Tab PO 5 mg QHS PRN Administration Sleep
[2021-05-03] MEDS: hydrALAZINE 25 MG TAB PO SCH (10:21)
[2021-05-03] MEDS: ASPIRIN EC 81 MG TAB PO SCH (10:23)
[2021-05-03] MEDS: PANTOPRAZOLE 40 MG TAB PO SCH (10:24)
[2021-05-03] MEDS: CLOPIDOGREL 75 MG TAB PO SCH (10:24)
[2021-05-03] MEDS: PREGABALIN 50 MG CAP PO SCH (10:24)
[2021-05-03] MEDS: PREGABALIN 75 MG CAP PO SCH (10:24)
== END 2021-05-03 12:01 | disposition home or self-care (01) | DRG 246 ==
LOC: ED 00:20 → CC1 01:29 → 4A 18:20
PROVIDERS: ADMIT Hospitalist; ATTEND Family Medicine
PROC: 027135Z Dilation of Coronary Artery, Two Arteries with Two Drug-eluting Intraluminal Devices, Percutaneous Approach (ICD-10-PCS; principal; 2021-05-01)
PROC: 4A023N7 Measurement of Cardiac Sampling and Pressure, Left Heart, Percutaneous Approach (ICD-10-PCS; 2021-05-01)
PROC: B2111ZZ Fluoroscopy of Multiple Coronary Arteries using Low Osmolar Contrast (ICD-10-PCS; 2021-05-01)
PROC: B2151ZZ Fluoroscopy of Left Heart using Low Osmolar Contrast (ICD-10-PCS; 2021-05-01)
DX: I21.19 ST elevation (STEMI) myocardial infarction involving other coronary artery of inferior wall (principal); N18.6 End stage renal disease; I50.43 Acute on chronic combined systolic (congestive) and diastolic (congestive) heart failure; I13.2 Hypertensive heart and chronic kidney disease with heart failure and with stage 5 chronic kidney disease, or end stage renal disease; J96.11 Chronic respiratory failure with hypoxia; E87.2 Acidosis; E11.22 Type 2 diabetes mellitus with diabetic chronic kidney disease; M19.90 Unspecified osteoarthritis, unspecified site; J45.909 Unspecified asthma, uncomplicated; G89.29 Other chronic pain; M54.9 Dorsalgia, unspecified; Z99.2 Dependence on renal dialysis; I16.0 Hypertensive urgency; Z88.0 Allergy status to penicillin; D64.9 Anemia, unspecified; E78.5 Hyperlipidemia, unspecified; E11.42 Type 2 diabetes mellitus with diabetic polyneuropathy
CPT/HCPCS: 36415; 71045; 80048; 80061; 82550; 82553; 82962; 84484; 85025; 85027; 85610; 85730; 86850; 86900; 86901; 92941; 93005; 93306; 93458; 93970; G0378; A9270-GY; C1725; C1769; C1874; C1887; C1894; C9606; J0171; J0282; J0360; J0461; J1170; J1265; J1644; J1815; J2001; J2250; J2270; J2370; J2405; J3010; J7030; J7040; Q9967

== ENCOUNTER 2021-08-07 13:16 | Inpatient (IN) | payer MEDICARE ==
--- NOTE | 2021-08-07 13:38 | Emergency Department Report ---
ED General Adult HPI - General Chief complaint: Altered Mental Status Stated complaint: POSSIBLE OVERDOSE Time Seen by Provider: 08/07/21 13:27 Source: patient Mode of arrival: Ambulatory Limitations: No Limitations - History of Present Illness Initial comments: Patient is 70 years old female with history of hypertension, diabetes, end-stage renal disease on hemodialysis. Patient brought to the emergency room via EMS from home for evaluation of altered mental status and unresponsiveness. EMS stated that patient had a vascular surgery to the right leg most likely varicose vein and she was prescribed Dilaudid. EMS stated that patient was not even responding to painful stimuli. He also reported that patient pupils pinpoint. EMS stated that they immediately gave patient Narcan and patient immediately start working up. Upon arrival to the ER patient still obtunded however she responded to 0.4 mg of Narcan initially by EMS. - Related Data Home Medications Medication Instructions Recorded Confirmed Last Taken Albuterol Sulfate [Ventolin Hfa] 2 puff IH Q6H PRN 08/30/18 05/02/21 10/08/18 Amlodipine Besylate [Norvasc] 5 mg PO QDAY 08/30/18 05/02/21 10/08/18 HYDROcodone/APAP 7.5-325 [[place] 1 each PO DAILY PRN 08/30/18 05/02/21 10/06/18 7.5-325 mg TAB] Hydralazine HCl 50 mg PO BID 08/30/18 05/02/21 10/08/18 Latanoprost 0.005% 1 drop OU QPM 08/30/18 05/02/21 10/08/18 Pantoprazole [Protonix TAB] 40 mg PO QDAY 08/30/18 05/02/21 10/08/18 Pregabalin [Lyrica] 200 mg PO BID 08/30/18 05/02/21 10/08/18 cloNIDine [Catapres] 0.2 mg PO QHS 08/30/18 05/02/21 10/08/18 tiZANidine [Zanaflex 4mg TAB] 4 mg PO DAILY PRN 08/30/18 05/02/21 10/08/18 Previous Rx's Medication Instructions Recorded Last Taken Type Furosemide [Lasix TAB] 40 mg PO DAILY #30 tablet 10/06/18 10/08/18 Rx Insulin Glargine [Lantus VIAL] 25 units SUB-Q QHS #1 vial 10/06/18 10/08/18 Rx Insulin Lispro [HumaLOG VIAL] 0 units SQ AC #1 vial 10/06/18 10/08/18 Rx Potassium Chloride [K-Dur] 20 meq PO QDAY #30 tablet 10/06/18 10/08/18 Rx Aspirin EC [Halfprin EC] 81 mg PO QDAY #90 tablet 05/02/21 Unknown Rx AtorvaSTATin [Lipitor] 40 mg PO QHS #90 tablet 05/02/21 Unknown Rx Clopidogrel [Plavix] 75 mg PO QDAY #90 tablet 05/02/21 Unknown Rx ISOSORBIDE MONOnitrate [Imdur ER] 30 mg PO QDAY #90 tablet 05/02/21 Unknown Rx Metoprolol [Lopressor TAB] 25 mg PO Q8HR #90 tablet 05/02/21 Unknown Rx Allergies Allergy/AdvReac Type Severity Reaction Status Date / Time Penicillins Allergy Itching Verified 08/30/18 08:25 ED Review of Systems ROS: Stated complaint: POSSIBLE OVERDOSE Other details as noted in HPI Comment: All other systems reviewed and negative Constitutional: denies: chills, fever Respiratory: denies: cough, shortness of breath, SOB with exertion Cardiovascular: denies: chest pain, palpitations Gastrointestinal: denies: abdominal pain, nausea, vomiting Musculoskeletal: denies: back pain Neurological: denies: headache ED Past Medical Hx - Past Medical History Hx Hypertension: Yes Hx Congestive Heart Failure: Yes Hx Diabetes: Yes Hx Renal Disease: Yes (Hx of chronic Kidney Disease) Hx Arthritis: Yes Hx Asthma: Yes Hx HIV: No Additional medical history: stomach issues. - Surgical History Additional Surgical History: bilateral knee replacements, left shoulder surgery, chronic back pain and leg pain - Social History Smoking Status: Never Smoker - Medications Home Medications: Home Medications Medication Instructions Recorded Confirmed Last Taken Type Albuterol Sulfate [Ventolin Hfa] 2 puff IH Q6H PRN 08/30/18 05/02/21 10/08/18 History Amlodipine Besylate [Norvasc] 5 mg PO QDAY 08/30/18 05/02/21 10/08/18 History HYDROcodone/APAP 7.5-325 [[place] 1 each PO DAILY PRN 08/30/18 05/02/21 10/06/18 History 7.5-325 mg TAB] Hydralazine HCl 50 mg PO BID 08/30/18 05/02/21 10/08/18 History Latanoprost 0.005% 1 drop OU QPM 08/30/18 05/02/21 10/08/18 History Pantoprazole [Protonix TAB] 40 mg PO QDAY 08/30/18 05/02/21 10/08/18 History Pregabalin [Lyrica] 200 mg PO BID 08/30/18 05/02/21 10/08/18 History cloNIDine [Catapres] 0.2 mg PO QHS 08/30/18 05/02/21 10/08/18 History tiZANidine [Zanaflex 4mg TAB] 4 mg PO DAILY PRN 08/30/18 05/02/21 10/08/18 History Furosemide [Lasix TAB] 40 mg PO DAILY #30 tablet 10/06/18 05/02/21 10/08/18 Rx Insulin Glargine [Lantus VIAL] 25 units SUB-Q QHS #1 vial 10/06/18 05/02/21 10/08/18 Rx Insulin Lispro [HumaLOG VIAL] 0 units SQ AC #1 vial 10/06/18 05/02/21 10/08/18 Rx Potassium Chloride [K-Dur] 20 meq PO QDAY #30 tablet 10/06/18 05/02/21 10/08/18 Rx Aspirin EC [Halfprin EC] 81 mg PO QDAY #90 tablet 05/02/21 Unknown Rx AtorvaSTATin [Lipitor] 40 mg PO QHS #90 tablet 05/02/21 Unknown Rx Clopidogrel [Plavix] 75 mg PO QDAY #90 tablet 05/02/21 Unknown Rx ISOSORBIDE MONOnitrate [Imdur ER] 30 mg PO QDAY #90 tablet 05/02/21 Unknown Rx Metoprolol [Lopressor TAB] 25 mg PO Q8HR #90 tablet 05/02/21 Unknown Rx ED Physical Exam - General Limitations: No Limitations General appearance: alert, in no apparent distress - Head Head exam: Present: atraumatic, normocephalic, normal inspection - Eye Eye exam: Present: normal appearance, PERRL - ENT ENT exam: Present: normal exam, normal orophraynx, mucous membranes moist - Neck Neck exam: Present: normal inspection, full ROM. Absent: tenderness, meningismus - Respiratory Respiratory exam: Present: normal lung sounds bilaterally - Cardiovascular Cardiovascular Exam: Present: regular rate, normal rhythm, normal heart sounds - GI/Abdominal GI/Abdominal exam: Present: soft, normal bowel sounds. Absent: distended, tenderness, guarding, rebound, rigid, organomegaly, mass, bruit, pulsatile mass, hernia - Back Exam Back exam: Present: normal inspection. Absent: CVA tenderness (R), CVA tenderness (L) - Neurological Exam Neurological exam: Present: alert, oriented X3, CN II-XII intact. Absent: motor sensory deficit - Psychiatric Psychiatric exam: Present: normal mood - Skin Skin exam: Present: warm ED Course Vital Signs 08/07/21 08/07/21 08/07/21 13:31 13:39 13:46 Pulse Rate 108 H 103 H Respiratory 16 20 10 L Rate Blood Pressure O2 Sat by Pulse 98 98 100 Oximetry 08/07/21 08/07/21 08/07/21 14:00 14:30 15:00 Pulse Rate 104 H 102 H Respiratory 13 13 Rate Blood Pressure 195/84 195/73 199/95 O2 Sat by Pulse 99 91 100 Oximetry 08/07/21 08/07/21 08/07/21 15:16 15:30 15:46 Pulse Rate 99 H 95 H 93 H Respiratory 9 L 9 L 10 L Rate Blood Pressure 199/95 176/87 176/87 O2 Sat by Pulse 100 100 100 Oximetry ED Medical Decision Making - Lab Data Result diagrams: 08/07/21 14:41 08/07/21 14:41 - Medical Decision Making Patient is 70 years old female with history of hypertension, diabetes, end-stage renal disease on hemodialysis. Patient brought to the emergency room via EMS from home for evaluation of altered mental status and unresponsiveness. EMS stated that patient had a vascular surgery to the right leg most likely varicose vein and she was prescribed Dilaudid. EMS stated that patient was not even responding to painful stimuli. He also reported that patient pupils pinpoint. EMS stated that they immediately gave patient Narcan and patient immediately start working up. Upon arrival to the ER patient still obtunded however she responded to 0.4 mg of Narcan initially by EMS. Patient required several doses of Narcan. Immediately after the Narcan patient wake up and will be alert and oriented x3 and approximately half an hours later she will became obtunded again. Patient started on Narcan drip now. I discussed the patient with Dr. Franz, he agreed to admit the patient to medical service for further management. Critical Care Time: Yes Critical care time in (mins) excluding proc time.: 35 Critical care attestation.: If time is entered above; I have spent that time in minutes in the direct care of this critically ill patient, excluding procedure time. ED Disposition Clinical Impression: Altered mental status, Narcotic overdose Disposition: ADMITTED INPATIENT Is pt being admited?: Yes Condition: Stable
[2021-08-07] MEDS ORDERED: NALOXONE 0.4 MG/1 ML INJ ONE (14:07)
[2021-08-07] MEDS ORDERED: NALOXONE 0.4 MG/1 ML INJ IV ONE ×2 (14:12→16:08)
[2021-08-07 14:57] LABS: Basophils # (Auto) 0.1 K/mm3 (0.0-0.1); Basophils % (Auto) 0.5 % (0.0-1.8); Eosinophils # (Auto) 0.4 K/mm3 (0.0-0.4); Eosinophils % (Auto) 3.8 % (0.0-4.3); Hematocrit 30.4 % (30.3-42.9); Hemoglobin 9.6 gm/dl (10.1-14.3); Lymphocytes # (Auto) 1.8 K/mm3 (1.2-5.4); Mean Corpuscular HGB Conc 32 % (30-34); Mean Corpuscular Volume 102 fl (79-97); Monocytes # (Auto) 0.6 K/mm3 (0.0-0.8); Monocytes % (Auto) 5.4 % (0.0-7.3); Platelet Count 435 K/mm3 (140-440); Red Blood Count 2.97 M/mm3 (3.65-5.03); Red Cell Distribution Width 19.1 % (13.2-15.2)
[2021-08-07] MEDS: NALOXONE 2 MG/2 ML 2 MG in SODIUM CHLORIDE 0.9% 500 ML 500 ML IV ONE ×2 (17:14→21:22)
[2021-08-07] MEDS ORDERED: tiZANidine TAB 4 MG TAB PO PRN (22:35)
[2021-08-07] MEDS ORDERED: ALBUTEROL 8.5 GM MDI INHALATION IH PRN (22:35)
--- NOTE | 2021-08-07 22:35 | History and Physical Report ---
History of Present Illness Date of examination: 08/07/21 Date of admission: 08/07/21 19:03 Chief complaint: Altered sensorium since a.m. History of present illness: 71-year-old female with history of hypertension, insulin-dependent diabetes, end-stage renal disease on hemodialysis brought in by EMS from home for evaluation of unresponsiveness and altered mental status. As per EMS patient had vascular surgery for varicose veins and was prescribed Dilaudid 2 mg every 6 hours. Patient was not responding to painful stimuli. As per EMS patient had pinpoint pupils. EMS gave the patient Narcan and patient immediately started waking up. Upon arrival in the ER patient was still obtunded but responded to 0.4 mg of Narcan. ED course-patient was started on Narcan drip by the ED physician for persistent unresponsiveness. No fever or chills. No hypoxia. - Past Medical History --Hypertension: Yes --Congestive Heart Failure: Yes --Diabetes: Yes --Renal Disease: Yes (Hx of chronic Kidney Disease) --Arthritis: Yes --Asthma: Yes --Additional medical history: stomach issues. - Surgical History Additional Surgical History: bilateral knee replacements, left shoulder surgery, chronic back pain and leg pain - Social History Smoking Status: Never Smoker -Family history --unavailable Review of Systems ROS: Stated complaint: POSSIBLE OVERDOSE Other details as noted in HPI Comment: All other systems reviewed and negative Constitutional: denies: chills, fever Respiratory: denies: cough, shortness of breath, SOB with exertion Cardiovascular: denies: chest pain, palpitations Gastrointestinal: denies: abdominal pain, nausea, vomiting Musculoskeletal: denies: back pain Neurological: denies: headache Medications and Allergies Allergies Allergy/AdvReac Type Severity Reaction Status Date / Time Penicillins Allergy Itching Verified 08/30/18 08:25 Home Medications Medication Instructions Recorded Confirmed Last Taken Type Albuterol Sulfate [Ventolin Hfa] 2 puff IH Q6H PRN 08/30/18 05/02/21 10/08/18 History Amlodipine Besylate [Norvasc] 5 mg PO QDAY 08/30/18 05/02/21 10/08/18 History HYDROcodone/APAP 7.5-325 [[place] 1 each PO DAILY PRN 08/30/18 05/02/21 10/06/18 History 7.5-325 mg TAB] Hydralazine HCl 50 mg PO BID 08/30/18 05/02/21 10/08/18 History Latanoprost 0.005% 1 drop OU QPM 08/30/18 05/02/21 10/08/18 History Pantoprazole [Protonix TAB] 40 mg PO QDAY 08/30/18 05/02/21 10/08/18 History Pregabalin [Lyrica] 200 mg PO BID 08/30/18 05/02/21 10/08/18 History cloNIDine [Catapres] 0.2 mg PO QHS 08/30/18 05/02/21 10/08/18 History tiZANidine [Zanaflex 4mg TAB] 4 mg PO DAILY PRN 08/30/18 05/02/21 10/08/18 History Furosemide [Lasix TAB] 40 mg PO DAILY #30 tablet 10/06/18 05/02/21 10/08/18 Rx Insulin Glargine [Lantus VIAL] 25 units SUB-Q QHS #1 vial 10/06/18 05/02/21 10/08/18 Rx Insulin Lispro [HumaLOG VIAL] 0 units SQ AC #1 vial 10/06/18 05/02/21 10/08/18 Rx Potassium Chloride [K-Dur] 20 meq PO QDAY #30 tablet 10/06/18 05/02/21 10/08/18 Rx Aspirin EC [Halfprin EC] 81 mg PO QDAY #90 tablet 05/02/21 Unknown Rx AtorvaSTATin [Lipitor] 40 mg PO QHS #90 tablet 05/02/21 Unknown Rx Clopidogrel [Plavix] 75 mg PO QDAY #90 tablet 05/02/21 Unknown Rx ISOSORBIDE MONOnitrate [Imdur ER] 30 mg PO QDAY #90 tablet 05/02/21 Unknown Rx Metoprolol [Lopressor TAB] 25 mg PO Q8HR #90 tablet 05/02/21 Unknown Rx Exam - Physical Exam Narrative exam: Elderly female lying in bed-unresponsive - Constitutional Vitals: Temp Pulse Resp BP Pulse Ox 107 H 10 L 197/98 100 08/07/21 22:15 08/07/21 17:46 08/07/21 22:15 08/07/21 22:15 General appearance: Present: no acute distress, well-nourished - EENT Eyes: Present: PERRL ENT: hearing intact, clear oral mucosa - Neck Neck: Present: supple, normal ROM - Respiratory Respiratory effort: normal Respiratory: bilateral: CTA - Cardiovascular Heart rate: 78 Rhythm: regular Heart Sounds: Present: S1 & S2. Absent: rub, click - Extremities Extremities: no ischemia, pulses intact, pulses symmetrical, No edema Peripheral Pulses: within normal limits - Abdominal General gastrointestinal: Present: soft, non-tender, non-distended, normal bowel sounds Female genitourinary: Present: normal - Rectal Rectal Exam: deferred - Integumentary Integumentary: Present: clear, warm, dry - Musculoskeletal Musculoskeletal: generalized weakness - Psychiatric Psychiatric: other (Unresponsive) - Neurologic Neurologic: moves all extremities, other (Unresponsive) - Allied Health Allied health notes reviewed: nursing, case management HEART Score - HEART Score History: Moderately suspicious Age: > 65 Risk factors: > 3 risk factors or hx of atherosclerotic disease Troponin: < normal limit - Critical Actions Critical Actions: 0-3 pts:0.9-1.7%risk of adverse cardiac event.Candidate for discharge Results - Labs CBC & Chem 7: 08/08/21 05:11 08/08/21 05:11 Labs: Laboratory Last Values WBC 11.3 K/mm3 (4.5-11.0) H 08/07/21 14:41 RBC 2.97 M/mm3 (3.65-5.03) L 08/07/21 14:41 Hgb 9.6 gm/dl (10.1-14.3) L 08/07/21 14:41 Hct 30.4 % (30.3-42.9) 08/07/21 14:41 MCV 102 fl (79-97) H 08/07/21 14:41 MCH 32 pg (28-32) 08/07/21 14:41 MCHC 32 % (30-34) 08/07/21 14:41 RDW 19.1 % (13.2-15.2) H 08/07/21 14:41 Plt Count 435 K/mm3 (140-440) 08/07/21 14:41 Lymph % (Auto) 16.0 % (13.4-35.0) 08/07/21 14:41 [place] % (Auto) 5.4 % (0.0-7.3) 08/07/21 14:41 Eos % (Auto) 3.8 % (0.0-4.3) 08/07/21 14:41 Baso % (Auto) 0.5 % (0.0-1.8) 08/07/21 14:41 Lymph # (Auto) 1.8 K/mm3 (1.2-5.4) 08/07/21 14:41 [place] # (Auto) 0.6 K/mm3 (0.0-0.8) 08/07/21 14:41 Eos # (Auto) 0.4 K/mm3 (0.0-0.4) 08/07/21 14:41 Baso # (Auto) 0.1 K/mm3 (0.0-0.1) 08/07/21 14:41 Seg Neutrophils % 74.3 % (40.0-70.0) H 08/07/21 14:41 Seg Neutrophils # 8.4 K/mm3 (1.8-7.7) H 08/07/21 14:41 Sodium 136 mmol/L (137-145) L 08/07/21 14:41 Potassium 4.7 mmol/L (3.6-5.0) 08/07/21 14:41 Chloride 101.1 mmol/L (98-107) 08/07/21 14:41 Carbon Dioxide 17 mmol/L (22-30) L 08/07/21 14:41 Anion Gap 23 mmol/L 08/07/21 14:41 BUN 22 mg/dL (7-17) H 08/07/21 14:41 Creatinine 6.6 mg/dL (0.6-1.2) H 08/07/21 14:41 Estimated GFR 6 ml/min 08/07/21 14:41 BUN/Creatinine Ratio 3 % 08/07/21 14:41 Glucose 103 mg/dL (65-100) H 08/07/21 14:41 POC Glucose 79 mg/dL (70-105) 08/07/21 13:37 Lactic Acid 1.10 mmol/L (0.7-2.0) 08/07/21 14:41 Calcium 8.0 mg/dL (8.4-10.2) L 08/07/21 14:41 Short CBC 08/07/21 08/08/21 Range/Units 14:41 05:11 WBC 11.3 H 13.8 H (4.5-11.0) K/mm3 Hgb 9.6 L 9.4 L (10.1-14.3) gm/dl Hct 30.4 30.0 L (30.3-42.9) % Plt Count 435 449 H (140-440) K/mm3 BMP 08/07/21 08/08/21 14:41 05:11 Sodium 136 L 139 Potassium 4.7 5.3 H Chloride 101.1 102.8 Carbon Dioxide 17 L 16 L BUN 22 H 25 H Creatinine 6.6 H 6.6 H Glucose 103 H 99 Calcium 8.0 L 7.8 L Liver Function 08/08/21 Range/Units 05:11 Total Bilirubin 0.20 (0.1-1.2) mg/dL AST 18 (5-40) units/L ALT 8 (7-56) units/L Alkaline Phosphatase 159 H (35-129) units/L Albumin 2.8 L (3.9-5) g/dL Assessment and Plan Assessment and plan: The high probability OF a clinically significant sudden or life-threatening de terioration of the cardiorespiratory system and endocrine system required my full and direct attention, intervention and postoperative management. The aggregate critical care time was 40 minutes. The time is in addition to time spent performing reported procedures but includes the followin: Data review and interpretation 2: Patient assessment and monitoring of vital signs 3: Documentation 4:: Medication orders and management Advance Directives: Yes (Full code) VTE prophylaxis?: Chemical Plan of care discussed with patient/family: Yes - Patient Problems (1) Acute metabolic encephalopathy Current Visit: Yes Status: Acute Plan to address problem: Probably secondary to Dilaudid and its effects on a renal failure patient Patient is on Narcan drip IV fluids as necessary and gently because the patient also has CHF (2) Narcotic overdose Current Visit: Yes Status: Acute Qualifiers: Encounter type: initial encounter Injury intent: accidental or unintentional Qualified Code(s): T40.601A - Poisoning by unspecified narcotics, accidental (unintentional), initial encounter Plan to address problem: Patient was given Dilaudid 2 mg every 6 hours after varicose vein surgery Patient became unresponsive and Narcan makes her responsive (3) ESRD (end stage renal disease) Current Visit: Yes Status: Chronic Plan to address problem: Nephrology consulted Continue dialysis as per schedule (4) IDDM (insulin dependent diabetes mellitus) Current Visit: Yes Status: Chronic Plan to address problem: Coverage for now Resume home insulin once she is more alert Check hemoglobin A1c (5) Hypertension Current Visit: Yes Status: Chronic Qualifiers: Hypertension type: primary hypertension Qualified Code(s): I10 - Essential (primary) hypertension Plan to address problem: Continue antihypertensives and adjust medications as necessary (6) Coronary artery disease Current Visit: Yes Status: Chronic Qualifiers: Coronary Disease-Associated Artery/Lesion type: [place] artery [place] vs. transplanted heart: [place] heart Plan to address problem: Continue Plavix and aspirin (7) Glaucoma Current Visit: Yes Status: Chronic Qualifiers: Glaucoma type: unspecified Plan to address problem: Continue latanoprost eyedrops (8) DVT prophylaxis Current Visit: Yes Status: Acute Plan to address problem: On anticoagulation and GI prophylaxis
[2021-08-07] MEDS ORDERED: METOCLOPRAMIDE 10 MG/2 ML INJ IV PRN ×2 (22:40→22:52)
[2021-08-07] MEDS ORDERED: MORPHINE 2 MG/1 ML INJ IV PRN (22:40)
[2021-08-07] MEDS ORDERED: HYDROmorphone 1 MG/1 ML INJ IV PRN (22:40)
[2021-08-07] MEDS ORDERED: ACETAMINOPHEN 325 MG TAB PO PRN (22:40)
[2021-08-07] MEDS ORDERED: SODIUM CHLORIDE 0.9% 1000 ML 1,000 ML IV SCH (22:45)
[2021-08-07] MEDS ORDERED: NON-FORMULARY EACH (Pregabalin [Lyrica] 200 MG Capsule) PO SCH (22:45)
[2021-08-07] MEDS ORDERED: NON-FORMULARY EACH (Hydralazine Hcl [Hydralazine Hcl] 50 MG Tablet) PO SCH (22:45)
[2021-08-07] MEDS ORDERED: ALBUTEROL 2.5 MG/3 ML NEBU IH PRN (22:48)
[2021-08-07] MEDS ORDERED: PREGABALIN 50 MG CAP PO SCH (23:00)
[2021-08-08] MEDS: hydrALAZINE 25 MG TAB PO SCH ×3 (03:46→23:40)
[2021-08-08] MEDS: hydrALAZINE 20 MG/1 ML INJ IV PRN ×3 (04:40→21:05)
[2021-08-08] MEDS: NALOXONE 2 MG/2 ML 2 MG in SODIUM CHLORIDE 0.9% 500 ML 500 ML IV SCH ×2 (05:00→11:28)
[2021-08-08] MEDS: METOPROLOL TARTRATE 25 MG TAB PO SCH ×3 (05:49→23:41)
[2021-08-08 05:58] LABS: Albumin 2.8 g/dL (3.9-5); Calcium 7.8 mg/dL (8.4-10.2)
[2021-08-08 06:45] LABS: Hemoglobin 9.4 gm/dl (10.1-14.3); Mean Corpuscular HGB Conc 31 % (30-34); Mean Corpuscular Volume 99 fl (79-97); Platelet Count 449 K/mm3 (140-440); Red Blood Count 3.02 M/mm3 (3.65-5.03); Red Cell Distribution Width 19.5 % (13.2-15.2)
--- NOTE | 2021-08-08 08:59 | Consultation ---
History of Present Illness - Reason for Consult Consult date: 08/08/21 end stage renal disease, hyperkalemia - History of Present Illness The patient is a 70 yo female with history significant for DM-2, HTN, CAD s/p stent, HFpEF, chronic hypoxic respiratory failure, OA, Anemia, Calciphylaxis and ESRD on HD (MWF) who was brought in by EMS to [facility] 08[facility] for evaluation of unresponsiveness and altered mental status. Patient was not able to provide any hsitory and there was no family member at the bedside. Patient had vascular surgery for varicose veins and was prescribed Dilaudid 2 mg every 6 hours. Patient was not responding to painful stimuli and EMS found her with pinpoint pupils. EMS gave Narcan and patient immediately started waking up. Upon arrival to the ED patient was obtunded but responded to 0.4 mg of Narcan. In the ED patient was started on Narcan drip for persistent unresponsiveness. Labs reviewed. Nephrology was consulted for ESRD management. Past History Past Medical History: other (See HPI.) Medications and Allergies Allergies Allergy/AdvReac Type Severity Reaction Status Date / Time Penicillins Allergy Itching Verified 08/30/18 08:25 Home Medications Medication Instructions Recorded Confirmed Last Taken Type Albuterol Sulfate [Ventolin Hfa] 2 puff IH Q6H PRN 08/30/18 05/02/21 10/08/18 History Amlodipine Besylate [Norvasc] 5 mg PO QDAY 08/30/18 05/02/21 10/08/18 History HYDROcodone/APAP 7.5-325 [[place] 1 each PO DAILY PRN 08/30/18 08/08/21 10/06/18 History 7.5-325 mg TAB] Hydralazine HCl 50 mg PO BID 08/30/18 08/08/21 10/08/18 History Latanoprost 0.005% 1 drop OU QPM 08/30/18 08/08/21 10/08/18 History tiZANidine [Zanaflex 4mg TAB] 4 mg PO DAILY PRN 08/30/18 08/08/21 10/08/18 History Insulin Glargine [Lantus VIAL] 25 units SUB-Q QHS #1 vial 10/06/18 05/02/21 10/08/18 Rx Insulin Lispro [HumaLOG VIAL] 0 units SQ AC #1 vial 10/06/18 05/02/21 10/08/18 Rx Aspirin EC [Halfprin EC] 81 mg PO QDAY #90 tablet 05/02/21 08/08/21 Unknown Rx AtorvaSTATin [Lipitor] 40 mg PO QHS #90 tablet 05/02/21 08/08/21 Unknown Rx Clopidogrel [Plavix] 75 mg PO QDAY #90 tablet 05/02/21 08/08/21 Unknown Rx ISOSORBIDE MONOnitrate [Imdur ER] 30 mg PO QDAY #90 tablet 05/02/21 Unknown Rx AtorvaSTATin [Lipitor] 40 mg PO QHS 08/08/21 08/08/21 Unknown History Cinacalcet [Sensipar] 30 mg PO QDAY 08/08/21 08/08/21 Unknown History Furosemide [Lasix TAB] 80 mg PO 08/08/21 Unknown History Furosemide [Lasix TAB] 80 mg PO QDAY 08/08/21 08/08/21 Unknown History HYDROmorphone [Dilaudid] 2 mg PO Q8H PRN 08/08/21 08/08/21 Unknown History Metoprolol Succinate [Toprol Xl] 25 mg PO DAILY 08/08/21 08/08/21 Unknown History Nortriptyline [Pamelor] 25 mg PO DAILY 08/08/21 08/08/21 Unknown History calcitrioL [Rocaltrol] 0.5 mcg PO QDAY 08/08/21 08/08/21 Unknown History calcitrioL [Rocaltrol] 0.5 mcg PO QDAY 08/08/21 08/08/21 Unknown History metOLazone [Zaroxolyn] 5 mg PO QDAY 08/08/21 08/08/21 Unknown History Active Meds: Active Medications Acetaminophen (Acetaminophen 325 Mg Tab) 650 mg PO Q4H PRN PRN Reason: Pain MILD(1-3)/Fever >100.5/PÉREZ Albuterol (Albuterol 2.5 Mg/3 Ml Nebu) 2.5 mg IH Q4HRT PRN PRN Reason: Shortness Of Breath Amlodipine Besylate (Amlodipine 5 Mg Tab) 5 mg PO QDAY [facility] Aspirin (Aspirin Ec 81 Mg Tab) 81 mg PO QDAY [facility] Atorvastatin Calcium (Atorvastatin 40 Mg Tab) 40 mg PO QHS [facility] Clonidine HCl (Clonidine 0.2 Mg Tab) 0.2 mg PO QHS [facility] Clopidogrel Bisulfate (Clopidogrel 75 Mg Tab) 75 mg PO QDAY [facility] Furosemide (Furosemide 40 Mg Tab) 40 mg PO DAILY [facility] Heparin Sodium (Porcine) (Heparin 5,000 Unit/1 Ml Vial) 5,000 unit SUB-Q Q12HR [facility] Hydralazine HCl (Hydralazine 25 Mg Tab) 50 mg PO BID [facility] Last Admin: 08/08/21 03:46 Dose: Not Given Documented by: Hydralazine HCl (Hydralazine 20 Mg/1 Ml Inj) 10 mg IV Q6H PRN PRN Reason: Hypertension Last Admin: 08/08/21 08:09 Dose: 10 mg Documented by: Sodium Chloride (Nacl 0.9% 1000 Ml) 1,000 mls @ 100 mls/hr IV DIRECT [facility] Naloxone HCl 2 mg/ Sodium (Chloride) 502 mls @ 100.4 mls/hr IV DIRECT [facility] Last Admin: 08/08/21 05:00 Dose: 0.4 mg/hr, 100.4 mls/hr Documented by: Isosorbide Mononitrate (Isosorbide Mononitrate Er 30 Mg Tab) 30 mg PO QDAY [facility] Labetalol HCl (Labetalol 20 Mg/4 Ml Inj) 10 mg IV Q4HR PRN PRN Reason: Hypertension Latanoprost (Latanoprost 0.005% Ophth Soln 2.5 Ml) 1 drops OU QPM [facility] Metoclopramide HCl (Metoclopramide 10 Mg/2 Ml Inj) 2.5 mg IV Q6H PRN PRN Reason: Nausea And Vomiting Metoprolol Tartrate (Metoprolol Tartrate 25 Mg Tab) 25 mg PO Q8HR [facility] Last Admin: 08/08/21 05:49 Dose: Not Given Documented by: Ondansetron HCl (Ondansetron 4 Mg/2 Ml Inj) 4 mg IV Q3H PRN PRN Reason: Nausea And Vomiting Pantoprazole Sodium (Pantoprazole 40 Mg Tab) 40 mg PO QDAY [facility] Sodium Chloride (Sodium Chloride 0.9% 10 Ml Flush Syringe) 10 ml IV BID [facility] Sodium Chloride (Sodium Chloride 0.9% 10 Ml Flush Syringe) 10 ml IV PRN PRN PRN Reason: LINE FLUSH Tizanidine HCl (Tizanidine Tab 4 Mg Tab) 4 mg PO BID PRN PRN Reason: Muscle Spasm Review of Systems ROS unobtainable: due to mental status Exam - Vital Signs Vital signs: Vital Signs Resp Pulse Ox 16 98 08/07/21 13:31 08/07/21 13:31 Results - Lab Results 08/08/21 05:11 08/08/21 05:11 Most recent lab results Calcium 7.8 mg/dL (8.4-10.2) L 08/08/21 05:11 Assessment and Plan 1. ESRD: Patient is on maintenance HD, MWF schedule. Per she was switched to HD about 2 months ago 2/2 calciphylaxis. Meds dosage based on GFR. Last outpatient HD 08/04. Hemodialysis: today. 2. FEN: Hyperkalemia, HD today. Anion-gap metabolic acidosis, HD today. Monitor lytes and volume status. 3. Acute metabolic encephalopathy, POA: 2/2 narcotic OD. On Narcan drip. CT head negative. Monitor. 4. CAD s/p stent. Plavix, Statin, Aspirin, BB. Echo; EF 60%, LVH. 5. Anemia: Epogen as needed. 6. HTN. 7. Type 2 DM. Subjective: Patient was seen and examined at the bedside. Examination: General appearance: well-developed, well-nourished, appears stated age, not in distress HEENT: ATNC, pupils equal Neck: supple, trachea midline Respiratory: Clear to Auscultation Cardiology: regular, S1S2, no murmur Gastrointestinal: normoactive bowel sounds, not tender, PD catheter noted Integumentary: no rash, warm and dry Neurologic: unresponsive Ext: no edema Hemodialysis access: R IJ tunnel catheter
[2021-08-08] MEDS ORDERED: ASPIRIN EC 81 MG TAB PO SCH (10:00)
[2021-08-08] MEDS ORDERED: SODIUM POLYSTYRENE 15 GM/60 ML ORAL LIQD PO SCH (10:00)
[2021-08-08] MEDS ORDERED: POTASSIUM CHLORIDE ER 20 MEQ TAB PO SCH (10:00)
[2021-08-08] MEDS ORDERED: FUROSEMIDE 40 MG TAB PO SCH (10:00)
[2021-08-08] MEDS ORDERED: FAMOTIDINE 20 MG/2 ML INJ IV SCH (10:00)
[2021-08-08] MEDS: CLOPIDOGREL 75 MG TAB PO SCH (10:13)
[2021-08-08] MEDS: amLODIPine 5 MG TAB PO SCH (10:13)
[2021-08-08] MEDS: PANTOPRAZOLE 40 MG TAB PO SCH (10:13)
[2021-08-08 10:15] LABS: Basophils % (Auto) 0.3 % (0.0-1.8); Eosinophils % (Auto) 0.3 % (0.0-4.3); Lymphocytes % (Auto) 7.6 % (13.4-35.0); Monocytes # (Auto) 0.5 K/mm3 (0.0-0.8); Monocytes % (Auto) 4.1 % (0.0-7.3)
--- NOTE | 2021-08-08 10:55 | Consultation ---
History of Present Illness - Reason for Consult Consult date: 08/08/21 Narcotic Overdose - History of Present Illness 70 y/o female admitted for possible overdose. Unable to provide any history. Medications and Allergies Allergies Allergy/AdvReac Type Severity Reaction Status Date / Time Penicillins Allergy Itching Verified 08/30/18 08:25 Home Medications Medication Instructions Recorded Confirmed Last Taken Type Albuterol Sulfate [Ventolin Hfa] 2 puff IH Q6H PRN 08/30/18 05/02/21 10/08/18 History Amlodipine Besylate [Norvasc] 5 mg PO QDAY 08/30/18 05/02/21 10/08/18 History HYDROcodone/APAP 7.5-325 [[place] 1 each PO DAILY PRN 08/30/18 08/08/21 10/06/18 History 7.5-325 mg TAB] Hydralazine HCl 50 mg PO BID 08/30/18 08/08/21 10/08/18 History Latanoprost 0.005% 1 drop OU QPM 08/30/18 08/08/21 10/08/18 History tiZANidine [Zanaflex 4mg TAB] 4 mg PO DAILY PRN 08/30/18 08/08/21 10/08/18 History Insulin Glargine [Lantus VIAL] 25 units SUB-Q QHS #1 vial 10/06/18 05/02/21 10/08/18 Rx Insulin Lispro [HumaLOG VIAL] 0 units SQ AC #1 vial 10/06/18 05/02/21 10/08/18 Rx Aspirin EC [Halfprin EC] 81 mg PO QDAY #90 tablet 05/02/21 08/08/21 Unknown Rx AtorvaSTATin [Lipitor] 40 mg PO QHS #90 tablet 05/02/21 08/08/21 Unknown Rx Clopidogrel [Plavix] 75 mg PO QDAY #90 tablet 05/02/21 08/08/21 Unknown Rx ISOSORBIDE MONOnitrate [Imdur ER] 30 mg PO QDAY #90 tablet 05/02/21 Unknown Rx AtorvaSTATin [Lipitor] 40 mg PO QHS 08/08/21 08/08/21 Unknown History Cinacalcet [Sensipar] 30 mg PO QDAY 08/08/21 08/08/21 Unknown History Furosemide [Lasix TAB] 80 mg PO 08/08/21 Unknown History Furosemide [Lasix TAB] 80 mg PO QDAY 08/08/21 08/08/21 Unknown History HYDROmorphone [Dilaudid] 2 mg PO Q8H PRN 08/08/21 08/08/21 Unknown History Metoprolol Succinate [Toprol Xl] 25 mg PO DAILY 08/08/21 08/08/21 Unknown History Nortriptyline [Pamelor] 25 mg PO DAILY 08/08/21 08/08/21 Unknown History calcitrioL [Rocaltrol] 0.5 mcg PO QDAY 08/08/21 08/08/21 Unknown History calcitrioL [Rocaltrol] 0.5 mcg PO QDAY 08/08/21 08/08/21 Unknown History metOLazone [Zaroxolyn] 5 mg PO QDAY 08/08/21 08/08/21 Unknown History Active Meds: Active Medications Acetaminophen (Acetaminophen 325 Mg Tab) 650 mg PO Q4H PRN PRN Reason: Pain MILD(1-3)/Fever >100.5/PÉREZ Albuterol (Albuterol 2.5 Mg/3 Ml Nebu) 2.5 mg IH Q4HRT PRN PRN Reason: Shortness Of Breath Amlodipine Besylate (Amlodipine 5 Mg Tab) 5 mg PO QDAY [facility] Last Admin: 08/08/21 10:13 Dose: Not Given Documented by: Aspirin (Aspirin Ec 81 Mg Tab) 81 mg PO QDAY [facility] Atorvastatin Calcium (Atorvastatin 40 Mg Tab) 40 mg PO QHS [facility] Clonidine HCl (Clonidine 0.2 Mg Tab) 0.2 mg PO QHS [facility] Clopidogrel Bisulfate (Clopidogrel 75 Mg Tab) 75 mg PO QDAY [facility] Last Admin: 08/08/21 10:13 Dose: Not Given Documented by: Furosemide (Furosemide 40 Mg Tab) 40 mg PO DAILY [facility] Last Admin: 08/08/21 10:13 Dose: Not Given Documented by: Heparin Sodium (Porcine) (Heparin 5,000 Unit/1 Ml Vial) 5,000 unit SUB-Q Q12HR [facility] Hydralazine HCl (Hydralazine 25 Mg Tab) 50 mg PO BID [facility] Last Admin: 08/08/21 10:13 Dose: Not Given Documented by: Hydralazine HCl (Hydralazine 20 Mg/1 Ml Inj) 10 mg IV Q6H PRN PRN Reason: Hypertension Last Admin: 08/08/21 08:09 Dose: 10 mg Documented by: Naloxone HCl 2 mg/ Sodium (Chloride) 502 mls @ 100.4 mls/hr IV DIRECT [facility] Last Admin: 08/08/21 05:00 Dose: 0.4 mg/hr, 100.4 mls/hr Documented by: Isosorbide Mononitrate (Isosorbide Mononitrate Er 30 Mg Tab) 30 mg PO QDAY [facility] Last Admin: 08/08/21 10:13 Dose: Not Given Documented by: Labetalol HCl (Labetalol 20 Mg/4 Ml Inj) 10 mg IV Q4HR PRN PRN Reason: Hypertension Latanoprost (Latanoprost 0.005% Ophth Soln 2.5 Ml) 1 drops OU QPM [facility] Metoclopramide HCl (Metoclopramide 10 Mg/2 Ml Inj) 2.5 mg IV Q6H PRN PRN Reason: Nausea And Vomiting Metoprolol Tartrate (Metoprolol Tartrate 25 Mg Tab) 25 mg PO Q8HR [facility] Last Admin: 08/08/21 05:49 Dose: Not Given Documented by: Ondansetron HCl (Ondansetron 4 Mg/2 Ml Inj) 4 mg IV Q3H PRN PRN Reason: Nausea And Vomiting Pantoprazole Sodium (Pantoprazole 40 Mg Tab) 40 mg PO QDAY [facility] Last Admin: 08/08/21 10:13 Dose: Not Given Documented by: Sodium Chloride (Sodium Chloride 0.9% 10 Ml Flush Syringe) 10 ml IV BID [facility] Last Admin: 08/08/21 10:14 Dose: 10 ml Documented by: Sodium Chloride (Sodium Chloride 0.9% 10 Ml Flush Syringe) 10 ml IV PRN PRN PRN Reason: LINE FLUSH Sodium Polystyrene Sulfonate (Sodium Polystyrene 15 Gm/60 Ml Oral Liqd) 30 gm PO ONCE@1000 [facility] Stop: 08/08/21 14:00 Last Admin: 08/08/21 10:13 Dose: Not Given Documented by: Tizanidine HCl (Tizanidine Tab 4 Mg Tab) 4 mg PO BID PRN PRN Reason: Muscle Spasm Exam - Constitutional Vitals: Temp Pulse Resp BP Pulse Ox 106 H 16 216/100 100 08/08/21 08:10 08/08/21 08:10 08/08/21 08:10 08/08/21 08:10 Results - Labs CBC & Chem 7: 08/10/21 05:38 08/10/21 05:38 Labs: Abnormal lab results 08/07/21 08/07/21 08/08/21 Range/Units 14:41 14:41 05:11 WBC 11.3 H 13.8 H (4.5-11.0) K/mm3 RBC 2.97 L 3.02 L (3.65-5.03) M/mm3 Hgb 9.6 L 9.4 L (10.1-14.3) gm/dl Hct 30.0 L (30.3-42.9) % MCV 102 H 99 H (79-97) fl RDW 19.1 H 19.5 H (13.2-15.2) % Plt Count 449 H (140-440) K/mm3 Lymph % (Auto) 7.6 L (13.4-35.0) % Lymph # (Auto) 1.0 L (1.2-5.4) K/mm3 Seg Neutrophils % 74.3 H 87.7 H (40.0-70.0) % Seg Neutrophils # 8.4 H 11.1 H (1.8-7.7) K/mm3 Sodium 136 L (137-145) mmol/L Potassium (3.6-5.0) mmol/L Carbon Dioxide 17 L (22-30) mmol/L BUN 22 H (7-17) mg/dL Creatinine 6.6 H (0.6-1.2) mg/dL Glucose 103 H (65-100) mg/dL Calcium 8.0 L (8.4-10.2) mg/dL Alkaline Phosphatase (35-129) units/L Total Protein (6.3-8.2) g/dL Albumin (3.9-5) g/dL 08/08/21 Range/Units 05:11 WBC (4.5-11.0) K/mm3 RBC (3.65-5.03) M/mm3 Hgb (10.1-14.3) gm/dl Hct (30.3-42.9) % MCV (79-97) fl RDW (13.2-15.2) % Plt Count (140-440) K/mm3 Lymph % (Auto) (13.4-35.0) % Lymph # (Auto) (1.2-5.4) K/mm3 Seg Neutrophils % (40.0-70.0) % Seg Neutrophils # (1.8-7.7) K/mm3 Sodium (137-145) mmol/L Potassium 5.3 H (3.6-5.0) mmol/L Carbon Dioxide 16 L (22-30) mmol/L BUN 25 H (7-17) mg/dL Creatinine 6.6 H (0.6-1.2) mg/dL Glucose (65-100) mg/dL Calcium 7.8 L (8.4-10.2) mg/dL Alkaline Phosphatase 159 H (35-129) units/L Total Protein 6.2 L (6.3-8.2) g/dL Albumin 2.8 L (3.9-5) g/dL Assessment and Plan 70 y/o with ESRD on HD admitted with altered mental status, thought secondary to narcotic overdose Given renal disease, most likely drugs are hanging around longer. Will ask renal about dialyzing today to see if this helps. Continue narcan drip.
[2021-08-08] MEDS: HEPARIN 5,000 UNIT/1 ML VIAL SUB-Q SCH ×2 (11:26→23:27)
[2021-08-08] MEDS: ASPIRIN EC 81 MG TAB PO SCH (11:28)
--- NOTE | 2021-08-08 12:31 | Event Note ---
Date: 08/08/21 Hemodialysis consent was obtained from her .
[2021-08-08] MEDS ORDERED: SODIUM CHLORIDE 0.9% 100 ML IV PRN (13:00)
[2021-08-08] MEDS ORDERED: EPOETIN ALFA-EPBX 10,000 UNIT/1 ML VIAL SUB-Q PRN (13:00)
--- NOTE | 2021-08-08 13:11 | Cat Scan Report ---
CT HEAD WITHOUT CONTRAST INDICATION / CLINICAL INFORMATION: ams. TECHNIQUE: All CT scans at this location are performed using CT dose reduction for ALARA by means of automated e xposure control. COMPARISON: Head CT 11/11/2013 FINDINGS: HEMORRHAGE: No evidence of intracranial hemorrhage or extra-axial fluid collection. EXTRA-AXIAL SPACES: Cortical sulci, sylvian fissures and basilar cisterns have an unremarkable appear ance. VENTRICULAR SYSTEM: The third and lateral ventricles are of normal size and configuration given the p atient's age of 70 years. Ventricular size is increased in the interval since baseline study 4 reflecting development of age-appropriate parenchymal volume loss.. CEREBRAL PARENCHYMA: No areas of abnormal brain parenchymal attenuation are identified. There is no i ndication of recent infarction. MIDLINE SHIFT OR HERNIATION: There is no mass effect. CEREBELLUM / BRAINSTEM: Brainstem and cerebellum have an unremarkable appearance. MIDLINE STRUCTURES: The sella turcica is enlarged but largely filled with CSF attenuation material co nsistent with "empty sella turcica". No abnormalities are seen in the pineal region. INTRACRANIAL VESSELS:No abnormalities are identified on this noncontrast head CT. ORBITS: visualized portions of the orbits have an unremarkable appearance. SOFT TISSUES of HEAD: No significant abnormality. CALVARIUM: Incidental note is made of hyperostosis frontalis interna. PARANASAL SINUSES / MASTOID AIR CELLS: Visualized portions of the paranasal sinuses are free from inf lammatory mucosal disease. Mastoid air cells are normally pneumatized. IMPRESSION: 1. Head CT without contrast is within normal limits for the patient's age of 70 years. Signer Name: Dheeraj Main MD Signed: 08/08/2021 1:06 PM Workstation Name: [id number]
[2021-08-08 15:10] LABS: Hepatitis C Virus Antibody Reactive (NonReactive)
--- NOTE | 2021-08-08 15:21 | Progress Note ---
<CAMELIAANAYELIWinnie - Last Filed: 08/08/21 17:41> Assessment and Plan Assessment and plan: This is a 70-year-old female with HTN, DM, ESRD on HD, calciphylaxis, secondary hyperparathyroidism, neuropathy admitted for possible narcotic overdose with leukocytosis, hyperkalemia and elevated BUN/creatinine. Neuro: Possible narcotic overdose, acute metabolic encephalopathy, glaucoma -S/p IVP Narcan x2 -S/p Narcan drip -Aspiration/fall precautions -CT head without contrast with no acute abnormalities -Hold home gabapentin, Dilaudid, Zanaflex -Continue home Lantanoprost Cardio: h/o HTN, CHF, CAD -Continue home amlodipine, Plavix, clonidine, aspirin, Lasix, hydralazine, I mdur, metoprolol -Blood pressure monitor per protocol -As needed hydralazine and labetalol Respiratory: NAD -Supplemental oxygen as needed -Continues SPO2 monitoring -Pulmonary hygiene GI: GERD, hep C -Patient currently n.p.o. due to altered mental status -Hold off placement of NG tube -PPI: Protonix -Hep C viral RNA constantly pending : ESRD on HD, calciphylaxis, secondary hyperparathyroidism -Nephrology consulted, patient recommendations -HD per nephrology -Strict intake and output -Avoid nephrotoxic medications -Renally dose medication -Daily weights -Epogen per nephrology Endo: h/o DM II -Hemoglobin A1c pending -Accu-Cheks every 4 -Avoid hypoglycemia -SSI if needed Heme: Anemia of chronic disease -Admit H/H 9.6/30.4 -Epogen per nephrology -Trend CBC -Transfuse to hemoglobin less than 7 -Heparin subcu ID: Leukocytosis -Per PCP s/p possible debridement for calciphylaxis wounds to bilateral lower extremities -May be reactive -Monitor for signs and symptoms of infection -Culture if needed The high probability of a clinically significant, sudden or life threatening deterioration of the [multi] system(s) required my full and direct attention, intervention and personal management. The aggregate critical care time was [60] minutes. This time is in addition to time spent performing reported procedures but includes the following: [x] Data Review and interpretation [x] Patient assessment and monitoring of vital signs [x] Documentation [x] Medication orders and management Disposition Plan: IMCU Total Time Spent with Patient (Minutes): 60 History Interval history: This is a 70-year-old female with HTN, CHF, DM, ESRD on HD, calciphylaxis, secondary hypoparathyroidism, neuropathy, gastroparesis who presented to the hospital on 08/07 via EMS for decreased responsiveness and altered mental status. Per EMS patient had surgery for varicose veins (however per PCP patient underwent some surgical debridement for wounds from calciphylaxis) and the patient is prescribed 1 mg of Dilaudid every 6 hours as needed per PCP. EMS stated that the patient was nonresponsive to painful stimuli and reported pinpoint pupils and intermittently administered Narcan and the patient started to wake up. Upon arrival to emergency department patient was still obtunded and responded to additional 0.4 mg of Narcan. Patient was initiated Narcan drip by ED for persistent unresponsiveness. Patient was admitted to the hospital service with consults to CCM and nephrology. 08/08: On examination patient has minimal responsiveness to tactile stimuli, remains hypertensive and restarted on p.o. medication. However due to concerns for aspiration NG tube was elected to be placed but eventually patient responded to IV labetalol. Patient remained on room air. Nephrology consulted family for initiation of hemodialysis. Per PCP patient was on peritoneal dialysis for 5 due to development of calciphylaxis patient was switched to ESRD for treatment. Per PCP patient only receives relief from painful lesions with Dilaudid 1 mg p.o. and nortriptyline. Patient was downgraded from CCU to IMCU and is receiving hemodialysis. Hospitalist Physical - Constitutional Vitals: Temp Pulse Resp BP Pulse Ox 86 10 L 144/69 99 08/08/21 14:01 08/08/21 14:01 08/08/21 14:01 08/08/21 14:01 General appearance: Present: no acute distress, well-nourished - EENT Eyes: Present: PERRL (sluggish). Absent: conjunctival injection, exopthalmos ENT: dentition normal - Neck Neck: Present: normal ROM - Respiratory Respiratory effort: normal Respiratory: bilateral: diminished - Cardiovascular Rhythm: regular Heart Sounds: Present: S1 & S2. Absent: systolic murmur, diastolic murmur - Extremities Extremities: no ischemia, pulses intact, pulses symmetrical, normal temperature, normal color Peripheral Pulses: within normal limits - Abdominal General gastrointestinal: soft, non-tender, non-distended, normal bowel sounds - Integumentary Integumentary: Present: warm, dry - Psychiatric Psychiatric: other - Neurologic Neurologic: other (Minimally responsive to painful stimuli, pupils equal round and very sluggish to light, able to protect airway) - Allied Health Allied health notes reviewed: nursing, RT, social work HEART Score - HEART Score Age: > 65 Risk factors: > 3 risk factors or hx of atherosclerotic disease Troponin: < normal limit - Critical Actions Critical Actions: 0-3 pts:0.9-1.7%risk of adverse cardiac event.Candidate for discharge Results - Labs CBC & Chem 7: 08/08/21 05:11 08/08/21 05:11 Labs: Laboratory Last Values WBC 13.8 K/mm3 (4.5-11.0) H 08/08/21 05:11 RBC 3.02 M/mm3 (3.65-5.03) L 08/08/21 05:11 Hgb 9.4 gm/dl (10.1-14.3) L 08/08/21 05:11 Hct 30.0 % (30.3-42.9) L 08/08/21 05:11 MCV 99 fl (79-97) H 08/08/21 05:11 MCH 31 pg (28-32) 08/08/21 05:11 MCHC 31 % (30-34) 08/08/21 05:11 RDW 19.5 % (13.2-15.2) H 08/08/21 05:11 Plt Count 449 K/mm3 (140-440) H 08/08/21 05:11 Lymph % (Auto) 7.6 % (13.4-35.0) L 08/08/21 05:11 [place] % (Auto) 4.1 % (0.0-7.3) 08/08/21 05:11 Eos % (Auto) 0.3 % (0.0-4.3) 08/08/21 05:11 Baso % (Auto) 0.3 % (0.0-1.8) 08/08/21 05:11 Lymph # (Auto) 1.0 K/mm3 (1.2-5.4) L 08/08/21 05:11 [place] # (Auto) 0.5 K/mm3 (0.0-0.8) 08/08/21 05:11 Eos # (Auto) 0.0 K/mm3 (0.0-0.4) 08/08/21 05:11 Baso # (Auto) 0.0 K/mm3 (0.0-0.1) 08/08/21 05:11 Seg Neutrophils % 87.7 % (40.0-70.0) H 08/08/21 05:11 Seg Neutrophils # 11.1 K/mm3 (1.8-7.7) H 08/08/21 05:11 Sodium 139 mmol/L (137-145) 08/08/21 05:11 Potassium 5.3 mmol/L (3.6-5.0) H 08/08/21 05:11 Chloride 102.8 mmol/L (98-107) 08/08/21 05:11 Carbon Dioxide 16 mmol/L (22-30) L 08/08/21 05:11 Anion Gap 26 mmol/L 08/08/21 05:11 BUN 25 mg/dL (7-17) H 08/08/21 05:11 Creatinine 6.6 mg/dL (0.6-1.2) H 08/08/21 05:11 Estimated GFR 6 ml/min 08/08/21 05:11 BUN/Creatinine Ratio 4 % 08/08/21 05:11 Glucose 99 mg/dL (65-100) 08/08/21 05:11 POC Glucose 79 mg/dL (70-105) 08/07/21 13:37 Lactic Acid 1.10 mmol/L (0.7-2.0) 08/07/21 14:41 Calcium 7.8 mg/dL (8.4-10.2) L 08/08/21 05:11 Total Bilirubin 0.20 mg/dL (0.1-1.2) 08/08/21 05:11 AST 18 units/L (5-40) 08/08/21 05:11 ALT 8 units/L (7-56) 08/08/21 05:11 Alkaline Phosphatase 159 units/L (35-129) H 08/08/21 05:11 Total Protein 6.2 g/dL (6.3-8.2) L 08/08/21 05:11 Albumin 2.8 g/dL (3.9-5) L 08/08/21 05:11 Albumin/Globulin Ratio 0.8 % 08/08/21 05:11 Hepatitis A IgM Ab Non-reactive (NonReactive) 08/08/21 13:55 Hep B Core IgM Ab Non-reactive (NonReactive) 08/08/21 13:55 Hepatitis C Antibody Reactive (NonReactive) A 08/08/21 13:55 Active Medications - Current Medications Current Medications: Generic Name Dose Route Start Last Admin Trade Name Freq PRN Reason Stop Dose Admin Acetaminophen 650 mg 08/07/21 22:40 Acetaminophen 325 Mg Tab PO Q4H PRN Pain MILD(1-3)/Fever >100.5/PÉREZ Albuterol 2.5 mg 08/07/21 22:48 Albuterol 2.5 Mg/3 Ml Nebu IH Q4HRT PRN Shortness Of Breath Amlodipine Besylate 5 mg 08/08/21 10:00 08/08/21 10:13 Amlodipine 5 Mg Tab PO Not Given QDAY [facility] Aspirin 81 mg 08/08/21 11:00 08/08/21 11:28 Aspirin Ec 81 Mg Tab PO Not Given QDAY [facility] Atorvastatin Calcium 40 mg 08/08/21 22:00 Atorvastatin 40 Mg Tab PO QHS [facility] Clonidine HCl 0.2 mg 08/08/21 22:00 Clonidine 0.2 Mg Tab PO QHS [facility] Clopidogrel Bisulfate 75 mg 08/08/21 10:00 08/08/21 10:13 Clopidogrel 75 Mg Tab PO Not Given QDAY [facility] Furosemide 40 mg 08/08/21 10:00 08/08/21 10:13 Furosemide 40 Mg Tab PO Not Given DAILY [facility] Heparin Sodium (Porcine) 5,000 unit 08/08/21 10:00 08/08/21 11:26 Heparin 5,000 Unit/1 Ml Vial SUB-Q Not Given Q12HR [facility] Hydralazine HCl 50 mg 08/07/21 23:00 08/08/21 10:13 Hydralazine 25 Mg Tab PO Not Given BID [facility] Hydralazine HCl 10 mg 08/08/21 04:22 08/08/21 08:09 Hydralazine 20 Mg/1 Ml Inj IV 10 mg Q6H PRN Administration Hypertension Naloxone HCl 2 mg/ Sodium 502 mls @ 100.4 mls/hr 08/08/21 04:30 08/08/21 11:28 Chloride IV 0.4 mg/hr DIRECT LADAN 100.4 mls/hr Administration 0.4 MG/HR Sodium Chloride 100 mls @ 999 mls/hr 08/08/21 13:00 Nacl 0.9% IV TITO PRN Hypotension Isosorbide Mononitrate 30 mg 08/08/21 10:00 08/08/21 10:13 Isosorbide Mononitrate Er 30 Mg Tab PO Not Given QDAY LADAN Labetalol HCl 10 mg 08/08/21 08:38 08/08/21 10:00 Labetalol 20 Mg/4 Ml Inj IV 10 mg Q4HR PRN Administration Hypertension Latanoprost 1 drops 08/08/21 18:00 Latanoprost 0.005% Ophth Soln 2.5 Ml OU QPM LADAN Metoclopramide HCl 2.5 mg 08/07/21 22:52 Metoclopramide 10 Mg/2 Ml Inj IV Q6H PRN Nausea And Vomiting Metoprolol Tartrate 25 mg 08/08/21 06:00 08/08/21 14:43 Metoprolol Tartrate 25 Mg Tab PO Not Given Q8HR LADAN Ondansetron HCl 4 mg 08/07/21 22:40 Ondansetron 4 Mg/2 Ml Inj IV Q3H PRN Nausea And Vomiting Pantoprazole Sodium 40 mg 08/08/21 10:00 08/08/21 10:13 Pantoprazole 40 Mg Tab PO Not Given QDAY LADAN Sodium Chloride 10 ml 08/08/21 10:00 08/08/21 10:14 Sodium Chloride 0.9% 10 Ml Flush Syringe IV 10 ml BID LADAN Administration Sodium Chloride 10 ml 08/07/21 22:40 Sodium Chloride 0.9% 10 Ml Flush Syringe IV PRN PRN LINE FLUSH Tizanidine HCl 4 mg 08/07/21 22:35 Tizanidine Tab 4 Mg Tab PO BID PRN Muscle Spasm <ASHLEE GREEN - Last Filed: 08/10/21 11:25> Assessment and Plan Assessment and plan: I saw and evaluated the patient. Discussed with the nurse practitioner and agree with their findings and plan as documented in this note. Hospitalist Physical - Constitutional Vitals: Temp Pulse Resp BP Pulse Ox 98.3 F 85 13 189/75 100 08/10/21 08:00 08/10/21 09:32 08/10/21 06:51 10/24/21 09:32 08/10/21 06:51 Results - Labs CBC & Chem 7: 08/10/21 05:38 08/10/21 05:38 Labs: Laboratory Last Values WBC 14.0 K/mm3 (4.5-11.0) H 08/10/21 05:38 RBC 2.88 M/mm3 (3.65-5.03) L 08/10/21 05:38 Hgb 9.1 gm/dl (10.1-14.3) L 08/10/21 05:38 Hct 28.8 % (30.3-42.9) L 08/10/21 05:38 MCV 100 fl (79-97) H 08/10/21 05:38 MCH 32 pg (28-32) 08/10/21 05:38 MCHC 32 % (30-34) 08/10/21 05:38 RDW 19.1 % (13.2-15.2) H 08/10/21 05:38 Plt Count 342 K/mm3 (140-440) 08/10/21 05:38 Lymph % (Auto) 7.2 % (13.4-35.0) L 08/10/21 05:38 [place] % (Auto) 5.5 % (0.0-7.3) 08/10/21 05:38 Eos % (Auto) 0.8 % (0.0-4.3) 08/10/21 05:38 Baso % (Auto) 0.2 % (0.0-1.8) 08/10/21 05:38 Lymph # (Auto) 1.0 K/mm3 (1.2-5.4) L 08/10/21 05:38 [place] # (Auto) 0.8 K/mm3 (0.0-0.8) 08/10/21 05:38 Eos # (Auto) 0.1 K/mm3 (0.0-0.4) 08/10/21 05:38 Baso # (Auto) 0.0 K/mm3 (0.0-0.1) 08/10/21 05:38 Add Manual Diff Complete 08/08/21 05:11 Total Counted 100 08/08/21 05:11 Seg Neutrophils % 86.3 % (40.0-70.0) H 08/10/21 05:38 Seg Neuts % (Manual) 90.0 % (40.0-70.0) H 08/08/21 05:11 Monocytes % (Manual) 7.0 % (0.0-7.3) 08/08/21 05:11 Eosinophils % (Manual) 3.0 % (0.0-4.3) 08/08/21 05:11 Nucleated RBC % Not Reportable 08/08/21 05:11 Seg Neutrophils # 12.1 K/mm3 (1.8-7.7) H 08/10/21 05:38 Seg Neutrophils # Man 12.4 K/mm3 (1.8-7.7) H 08/08/21 05:11 Band Neutrophils # 0.0 K/mm3 08/08/21 05:11 Lymphocytes # (Manual) 0.0 K/mm3 (1.2-5.4) L 08/08/21 05:11 Abs React Lymphs (Man) 0.0 K/mm3 08/08/21 05:11 Monocytes # (Manual) 1.0 K/mm3 (0.0-0.8) H 08/08/21 05:11 Eosinophils # (Manual) 0.4 K/mm3 (0.0-0.4) 08/08/21 05:11 Basophils # (Manual) 0.0 K/mm3 (0.0-0.1) 08/08/21 05:11 Metamyelocytes # 0.0 K/mm3 08/08/21 05:11 Myelocytes # 0.0 K/mm3 08/08/21 05:11 Promyelocytes # 0.0 K/mm3 08/08/21 05:11 Blast Cells # 0.0 K/mm3 08/08/21 05:11 WBC Morphology Not Reportable 08/08/21 05:11 Hypersegmented Neuts Not Reportable 08/08/21 05:11 Hyposegmented Neuts Not Reportable 08/08/21 05:11 Hypogranular Neuts Not Reportable 08/08/21 05:11 Smudge Cells Not Reportable 08/08/21 05:11 Toxic Granulation 1+ 08/08/21 05:11 Toxic Vacuolation Not Reportable 08/08/21 05:11 Dohle Bodies Not Reportable 08/08/21 05:11 Pelger-Huet Anomaly Not Reportable 08/08/21 05:11 Arianna Rods Not Reportable 08/08/21 05:11 Platelet Estimate Consistent w auto 08/08/21 05:11 Clumped Platelets Not Reportable 08/08/21 05:11 Plt Clumps, EDTA Not Reportable 08/08/21 05:11 Large Platelets Not Reportable 08/08/21 05:11 Giant Platelets Not Reportable 08/08/21 05:11 Platelet Satelliting Not Reportable 08/08/21 05:11 Plt Morphology Comment Not Reportable 08/08/21 05:11 RBC Morphology Not Reportable 08/08/21 05:11 Dimorphic RBCs Not Reportable 08/08/21 05:11 Polychromasia Not Reportable 08/08/21 05:11 Hypochromasia Not Reportable 08/08/21 05:11 Poikilocytosis Not Reportable 08/08/21 05:11 Anisocytosis Not Reportable 08/08/21 05:11 Microcytosis Not Reportable 08/08/21 05:11 Macrocytosis Not Reportable 08/08/21 05:11 Spherocytes Not Reportable 08/08/21 05:11 Pappenheimer Bodies Not Reportable 08/08/21 05:11 Sickle Cells Not Reportable 08/08/21 05:11 Target Cells Not Reportable 08/08/21 05:11 Tear Drop Cells Not Reportable 08/08/21 05:11 Ovalocytes Not Reportable 08/08/21 05:11 Helmet Cells Not Reportable 08/08/21 05:11 [place] Bodies Not Reportable 08/08/21 05:11 [place] Rings Not Reportable 08/08/21 05:11 [place] Cells Not Reportable 08/08/21 05:11 Bite Cells Not Reportable 08/08/21 05:11 Crenated Cell Not Reportable 08/08/21 05:11 Elliptocytes Not Reportable 08/08/21 05:11 Acanthocytes (Spur) Not Reportable 08/08/21 05:11 Rouleaux Not Reportable 08/08/21 05:11 Hemoglobin C Crystals Not Reportable 08/08/21 05:11 Schistocytes Not Reportable 08/08/21 05:11 Malaria parasites Not Reportable 08/08/21 05:11 Say Bodies Not Reportable 08/08/21 05:11 Hem Pathologist Commnt No 08/08/21 05:11 Sodium 137 mmol/L (137-145) 08/10/21 05:38 Potassium 4.2 mmol/L (3.6-5.0) 08/10/21 05:38 Chloride 99.8 mmol/L (98-107) 08/10/21 05:38 Carbon Dioxide 24 mmol/L (22-30) 08/10/21 05:38 Anion Gap 17 mmol/L 08/10/21 05:38 BUN 38 mg/dL (7-17) H 08/10/21 05:38 Creatinine 3.8 mg/dL (0.6-1.2) H 08/10/21 05:38 Estimated GFR 12 ml/min 08/10/21 05:38 BUN/Creatinine Ratio 10 % 08/10/21 05:38 Glucose 99 mg/dL (65-100) 08/10/21 05:38 POC Glucose 85 mg/dL (70-105) 08/10/21 11:08 Hemoglobin A1c 4.8 % (4-6) 08/09/21 04:14 Lactic Acid 1.10 mmol/L (0.7-2.0) 08/07/21 14:41 Calcium 8.2 mg/dL (8.4-10.2) L 08/10/21 05:38 Phosphorus 4.20 mg/dL (2.5-4.5) 08/09/21 04:14 Magnesium 2.10 mg/dL (1.7-2.3) 08/10/21 05:38 Total Bilirubin 0.20 mg/dL (0.1-1.2) 08/10/21 05:38 AST 21 units/L (5-40) 08/10/21 05:38 ALT 7 units/L (7-56) 08/10/21 05:38 Alkaline Phosphatase 142 units/L (35-129) H 08/10/21 05:38 Ammonia 20.0 umol/L (25-60) L 08/09/21 18:35 Total Protein 5.8 g/dL (6.3-8.2) L 08/10/21 05:38 Albumin 2.5 g/dL (3.9-5) L 08/10/21 05:38 Albumin/Globulin Ratio 0.8 % 08/10/21 05:38 Hepatitis A IgM Ab Non-reactive (NonReactive) 08/08/21 13:55 Hep Bs Antigen Nonreactive (Negative) 08/08/21 13:55 Hep B Core IgM Ab Non-reactive (NonReactive) 08/08/21 13:55 Hepatitis C Antibody Reactive (NonReactive) A 08/08/21 13:55 Active Medications - Current Medications Current Medications: Generic Name Dose Route Start Last Admin Trade Name Freq PRN Reason Stop Dose Admin Acetaminophen 650 mg 08/07/21 22:40 Acetaminophen 325 Mg Tab PO Q4H PRN Pain MILD(1-3)/Fever >100.5/PÉREZ Albuterol 2.5 mg 08/07/21 22:48 Albuterol 2.5 Mg/3 Ml Nebu IH Q4HRT PRN Shortness Of Breath Amlodipine Besylate 5 mg 08/09/21 13:15 08/10/21 09:31 Amlodipine 5 Mg Tab FEEDTUBE 5 mg QDAY LADAN Administration Aspirin 81 mg 08/09/21 14:00 08/10/21 09:31 Aspirin 81 Mg Tab Chew FEEDTUBE 81 mg QDAY LADAN Administration Atorvastatin Calcium 40 mg 08/09/21 13:15 08/09/21 22:41 Atorvastatin 40 Mg Tab FEEDTUBE 40 mg QHS LADAN Administration Clonidine HCl 0.2 mg 08/09/21 13:15 08/09/21 22:41 Clonidine 0.2 Mg Tab FEEDTUBE 0.2 mg QHS LADAN Administration Clopidogrel Bisulfate 75 mg 08/09/21 13:15 08/10/21 09:33 Clopidogrel 75 Mg Tab FEEDTUBE 75 mg QDAY LADAN Administration Dextrose 25 ml 08/08/21 17:38 Dextrose 50% In Water (25gm) 50 Ml Syringe IV Q30MIN PRN Hypoglycemia Protocol Heparin Sodium (Porcine) 5,000 unit 08/08/21 10:00 08/10/21 09:32 Heparin 5,000 Unit/1 Ml Vial SUB-Q 5,000 unit Q12HR LADAN Administration Heparin Sodium (Porcine) 3,000 unit 08/09/21 09:40 Heparin 10,000 Units/10 Ml Vial IV TITO PRN hemodialysis Hydralazine HCl 10 mg 08/08/21 04:22 08/08/21 21:05 Hydralazine 20 Mg/1 Ml Inj IV 10 mg Q6H PRN Administration Hypertension Hydralazine HCl 50 mg 08/09/21 13:15 08/10/21 09:32 Hydralazine 25 Mg Tab FEEDTUBE 50 mg BID LADAN Administration Sodium Chloride 100 mls @ 999 mls/hr 08/08/21 13:00 Nacl 0.9% IV TITO PRN Hypotension Isosorbide Dinitrate 10 mg 08/10/21 14:00 Isosorbide Dinitrate 10 Mg Tab PO Q8H LADAN Labetalol HCl 10 mg 08/08/21 08:38 08/08/21 10:00 Labetalol 20 Mg/4 Ml Inj IV 10 mg Q4HR PRN Administration Hypertension Lansoprazole 30 mg 08/09/21 14:00 08/10/21 09:33 Lansoprazole 30 Mg Solutab FEEDTUBE 30 mg QDAY LADAN Administration Latanoprost 1 drops 08/08/21 18:00 08/09/21 22:42 Latanoprost 0.005% Ophth Soln 2.5 Ml OU Not Given QPM LADAN Metoclopramide HCl 2.5 mg 08/07/21 22:52 Metoclopramide 10 Mg/2 Ml Inj IV Q6H PRN Nausea And Vomiting Metoprolol Tartrate 25 mg 08/09/21 13:15 08/10/21 07:35 Metoprolol Tartrate 25 Mg Tab FEEDTUBE 25 mg Q8HR LADAN Administration Ondansetron HCl 4 mg 08/07/21 22:40 Ondansetron 4 Mg/2 Ml Inj IV Q3H PRN Nausea And Vomiting Sodium Chloride 10 ml 08/08/21 10:00 08/10/21 09:34 Sodium Chloride 0.9% 10 Ml Flush Syringe IV 10 ml BID LADAN Administration Sodium Chloride 10 ml 08/07/21 22:40 Sodium Chloride 0.9% 10 Ml Flush Syringe IV PRN PRN LINE FLUSH Tizanidine HCl 4 mg 08/07/21 22:35 Tizanidine Tab 4 Mg Tab PO BID PRN Muscle Spasm
[2021-08-08 15:29] LABS: Hepatitis B Surface Antigen Nonreactive (Negative)
[2021-08-08 15:54] LABS: Platelet Estimate Consistent w Auto; Total Cells Counted 100; Toxic Granulation 1+
[2021-08-08] MEDS ORDERED: DEXTROSE 50% IN WATER (25GM) 50 ML SYRINGE IV PRN (17:38)
--- NOTE | 2021-08-08 17:45 | Event Note ---
<ANAYELI DENISE - Last Filed: 08/08/21 17:44> Date: 08/08/21 PCP: Dr. Dann Barnes of [facility]: [phone] Daughter: Unknown name: [phone] <ASHLEE GREEN - Last Filed: 08/10/21 11:25> I saw and evaluated the patient. Discussed with the nurse practitioner and agree with their findings and plan as documented in this note.
[2021-08-08] MEDS ORDERED: cloNIDine 0.2 MG TAB PO SCH (22:00)
[2021-08-08] MEDS: LATANOPROST 0.005% OPHTH SOLN 2.5 ML OU SCH (23:40)
[2021-08-09 04:52] LABS: Hematocrit 28.6 % (30.3-42.9); Hemoglobin 9.2 gm/dl (10.1-14.3); Mean Corpuscular HGB Conc 32 % (30-34); Mean Corpuscular Volume 100 fl (79-97); Platelet Count 361 K/mm3 (140-440); Red Blood Count 2.86 M/mm3 (3.65-5.03); Red Cell Distribution Width 19.4 % (13.2-15.2)
[2021-08-09 05:13] LABS: Calcium 7.9 mg/dL (8.4-10.2)
[2021-08-09] MEDS: METOPROLOL TARTRATE 25 MG TAB PO SCH (06:22)
[2021-08-09] MEDS ORDERED: MAGNESIUM SULFATE 2 GM/50 ML BAG IV SCH (07:45)
--- NOTE | 2021-08-09 08:38 | Progress Note ---
Assessment and Plan Assessment and plan: This is a 70-year-old female with HTN, CHF, DM, ESRD on HD, calciphylaxis, secondary hypoparathyroidism, neuropathy, gastroparesis who presented to the hospital on 08/07 via EMS for decreased responsiveness and altered mental status. Per EMS patient had surgery for varicose veins (however per PCP patient underwent some surgical debridement for wounds from calciphylaxis) and the patient is prescribed 1 mg of Dilaudid every 6 hours as needed per PCP. EMS stated that the patient was nonresponsive to painful stimuli and reported pinpoint pupils and intermittently administered Narcan and the patient started to wake up. Upon arrival to emergency department patient was still obtunded and responded to additional 0.4 mg of Narcan. Patient was initiated Narcan drip by ED for persistent unresponsiveness. Patient was admitted to the hospital service with consults to CCM and nephrology. PCP: [facility]ann [facility]: [phone] Daughter: Unknown name: [phone] 08/08: On examination patient has minimal responsiveness to tactile stimuli, remains hypertensive and restarted on p.o. medication. However due to concerns for aspiration NG tube was elected to be placed but eventually patient responded to IV labetalol. Patient remained on room air. Nephrology consulted family for initiation of hemodialysis. Per PCP patient was on peritoneal dialysis for 5 due to development of calciphylaxis patient was switched to ESRD for treatment. Per PCP patient only receives relief from painful lesions with Dilaudid 1 mg p.o. and nortriptyline. Patient was downgraded from CCU to IMCU and is r eceiving hemodialysis. 08/09: Neuro: Possible narcotic overdose, acute metabolic encephalopathy, glaucoma -S/p IVP Narcan x2 -S/p Narcan drip -Aspiration/fall precautions -CT head without contrast with no acute abnormalities -Hold home gabapentin, Dilaudid, Zanaflex -Continue home Lantanoprost Cardio: h/o HTN, CHF, CAD -Continue home amlodipine, Plavix, clonidine, aspirin, Lasix, hydralazine, Imdur, metoprolol -Blood pressure monitor per protocol -As needed hydralazine and labetalol Respiratory: NAD -Supplemental oxygen as needed -Continues SPO2 monitoring -Pulmonary hygiene GI: GERD, hep C -Patient currently n.p.o. due to altered mental status -Hold off placement of NG tube -PPI: Protonix -Hep C viral RNA constantly pending : ESRD on HD, calciphylaxis, secondary hyperparathyroidism -Nephrology consulted, patient recommendations -HD per nephrology -Strict intake and output -Avoid nephrotoxic medications -Renally dose medication -Daily weights -Epogen per nephrology Endo: h/o DM II -Hemoglobin A1c pending -Accu-Cheks every 4 -Avoid hypoglycemia -SSI if needed Heme: Anemia of chronic disease -Admit H/H 9.6/30.4 -Epogen per nephrology -Trend CBC -Transfuse to hemoglobin less than 7 -Heparin subcu ID: Leukocytosis -Per PCP s/p possible debridement for calciphylaxis wounds to bilateral lower extremities -May be reactive -Monitor for signs and symptoms of infection -Culture if needed The high probability of a clinically significant, sudden or life threatening deterioration of the [multi] system(s) required my full and direct attention, intervention and personal management. The aggregate critical care time was [60] minutes. This time is in addition to time spent performing reported procedures but includes the following: [x] Data Review and interpretation [x] Patient assessment and monitoring of vital signs [x] Documentation [x] Medication orders and management Disposition Plan: IMCU Total Time Spent with Patient (Minutes): 60 Hospitalist Physical - Constitutional Vitals: Temp Pulse Resp BP Pulse Ox 98.0 F 92 H 11 L 143/63 99 08/09/21 05:00 08/09/21 07:15 08/09/21 07:15 08/09/21 07:15 08/09/21 07:15 General appearance: Present: no acute distress, well-nourished HEART Score - HEART Score Age: > 65 Risk factors: > 3 risk factors or hx of atherosclerotic disease Troponin: < normal limit - Critical Actions Critical Actions: 0-3 pts:0.9-1.7%risk of adverse cardiac event.Candidate for discharge Results - Labs CBC & Chem 7: 08/09/21 04:14 08/09/21 04:14 Labs: Laboratory Last Values WBC 11.8 K/mm3 (4.5-11.0) H 08/09/21 04:14 RBC 2.86 M/mm3 (3.65-5.03) L 08/09/21 04:14 Hgb 9.2 gm/dl (10.1-14.3) L 08/09/21 04:14 Hct 28.6 % (30.3-42.9) L 08/09/21 04:14 MCV 100 fl (79-97) H 08/09/21 04:14 MCH 32 pg (28-32) 08/09/21 04:14 MCHC 32 % (30-34) 08/09/21 04:14 RDW 19.4 % (13.2-15.2) H 08/09/21 04:14 Plt Count 361 K/mm3 (140-440) 08/09/21 04:14 Lymph % (Auto) 7.6 % (13.4-35.0) L 08/08/21 05:11 [place] % (Auto) 4.1 % (0.0-7.3) 08/08/21 05:11 Eos % (Auto) 0.3 % (0.0-4.3) 08/08/21 05:11 Baso % (Auto) 0.3 % (0.0-1.8) 08/08/21 05:11 Lymph # (Auto) 1.0 K/mm3 (1.2-5.4) L 08/08/21 05:11 [place] # (Auto) 0.5 K/mm3 (0.0-0.8) 08/08/21 05:11 Eos # (Auto) 0.0 K/mm3 (0.0-0.4) 08/08/21 05:11 Baso # (Auto) 0.0 K/mm3 (0.0-0.1) 08/08/21 05:11 Add Manual Diff Complete 08/08/21 05:11 Total Counted 100 08/08/21 05:11 Seg Neutrophils % 87.7 % (40.0-70.0) H 08/08/21 05:11 Seg Neuts % (Manual) 90.0 % (40.0-70.0) H 08/08/21 05:11 Monocytes % (Manual) 7.0 % (0.0-7.3) 08/08/21 05:11 Eosinophils % (Manual) 3.0 % (0.0-4.3) 08/08/21 05:11 Nucleated RBC % Not Reportable 08/08/21 05:11 Seg Neutrophils # 11.1 K/mm3 (1.8-7.7) H 08/08/21 05:11 Seg Neutrophils # Man 12.4 K/mm3 (1.8-7.7) H 08/08/21 05:11 Band Neutrophils # 0.0 K/mm3 08/08/21 05:11 Lymphocytes # (Manual) 0.0 K/mm3 (1.2-5.4) L 08/08/21 05:11 Abs React Lymphs (Man) 0.0 K/mm3 08/08/21 05:11 Monocytes # (Manual) 1.0 K/mm3 (0.0-0.8) H 08/08/21 05:11 Eosinophils # (Manual) 0.4 K/mm3 (0.0-0.4) 08/08/21 05:11 Basophils # (Manual) 0.0 K/mm3 (0.0-0.1) 08/08/21 05:11 Metamyelocytes # 0.0 K/mm3 08/08/21 05:11 Myelocytes # 0.0 K/mm3 08/08/21 05:11 Promyelocytes # 0.0 K/mm3 08/08/21 05:11 Blast Cells # 0.0 K/mm3 08/08/21 05:11 WBC Morphology Not Reportable 08/08/21 05:11 Hypersegmented Neuts Not Reportable 08/08/21 05:11 Hyposegmented Neuts Not Reportable 08/08/21 05:11 Hypogranular Neuts Not Reportable 08/08/21 05:11 Smudge Cells Not Reportable 08/08/21 05:11 Toxic Granulation 1+ 08/08/21 05:11 Toxic Vacuolation Not Reportable 08/08/21 05:11 Dohle Bodies Not Reportable 08/08/21 05:11 Pelger-Huet Anomaly Not Reportable 08/08/21 05:11 Arianna Rods Not Reportable 08/08/21 05:11 Platelet Estimate Consistent w auto 08/08/21 05:11 Clumped Platelets Not Reportable 08/08/21 05:11 Plt Clumps, EDTA Not Reportable 08/08/21 05:11 Large Platelets Not Reportable 08/08/21 05:11 Giant Platelets Not Reportable 08/08/21 05:11 Platelet Satelliting Not Reportable 08/08/21 05:11 Plt Morphology Comment Not Reportable 08/08/21 05:11 RBC Morphology Not Reportable 08/08/21 05:11 Dimorphic RBCs Not Reportable 08/08/21 05:11 Polychromasia Not Reportable 08/08/21 05:11 Hypochromasia Not Reportable 08/08/21 05:11 Poikilocytosis Not Reportable 08/08/21 05:11 Anisocytosis Not Reportable 08/08/21 05:11 Microcytosis Not Reportable 08/08/21 05:11 Macrocytosis Not Reportable 08/08/21 05:11 Spherocytes Not Reportable 08/08/21 05:11 Pappenheimer Bodies Not Reportable 08/08/21 05:11 Sickle Cells Not Reportable 08/08/21 05:11 Target Cells Not Reportable 08/08/21 05:11 Tear Drop Cells Not Reportable 08/08/21 05:11 Ovalocytes Not Reportable 08/08/21 05:11 Helmet Cells Not Reportable 08/08/21 05:11 [place] Bodies Not Reportable 08/08/21 05:11 [place] Rings Not Reportable 08/08/21 05:11 Reasnor Cells Not Reportable 08/08/21 05:11 Bite Cells Not Reportable 08/08/21 05:11 Crenated Cell Not Reportable 08/08/21 05:11 Elliptocytes Not Reportable 08/08/21 05:11 Acanthocytes (Spur) Not Reportable 08/08/21 05:11 Rouleaux Not Reportable 08/08/21 05:11 Hemoglobin C Crystals Not Reportable 08/08/21 05:11 Schistocytes Not Reportable 08/08/21 05:11 Malaria parasites Not Reportable 08/08/21 05:11 Say Bodies Not Reportable 08/08/21 05:11 Hem Pathologist Commnt No 08/08/21 05:11 Sodium 140 mmol/L (137-145) 08/09/21 04:14 Potassium 3.9 mmol/L (3.6-5.0) D 08/09/21 04:14 Chloride 100.9 mmol/L (98-107) 08/09/21 04:14 Carbon Dioxide 23 mmol/L (22-30) D 08/09/21 04:14 Anion Gap 20 mmol/L 08/09/21 04:14 BUN 15 mg/dL (7-17) 08/09/21 04:14 Creatinine 4.4 mg/dL (0.6-1.2) H 08/09/21 04:14 Estimated GFR 10 ml/min 08/09/21 04:14 BUN/Creatinine Ratio 3 % 08/09/21 04:14 Glucose 142 mg/dL (65-100) H 08/09/21 04:14 POC Glucose 140 mg/dL (70-105) H 08/09/21 06:31 Hemoglobin A1c 4.8 % (4-6) 08/09/21 04:14 Lactic Acid 1.10 mmol/L (0.7-2.0) 08/07/21 14:41 Calcium 7.9 mg/dL (8.4-10.2) L 08/09/21 04:14 Phosphorus 4.20 mg/dL (2.5-4.5) 08/09/21 04:14 Magnesium 1.60 mg/dL (1.7-2.3) L 08/09/21 04:14 Total Bilirubin 0.20 mg/dL (0.1-1.2) 08/08/21 05:11 AST 18 units/L (5-40) 08/08/21 05:11 ALT 8 units/L (7-56) 08/08/21 05:11 Alkaline Phosphatase 159 units/L (35-129) H 08/08/21 05:11 Total Protein 6.2 g/dL (6.3-8.2) L 08/08/21 05:11 Albumin 2.8 g/dL (3.9-5) L 08/08/21 05:11 Albumin/Globulin Ratio 0.8 % 08/08/21 05:11 Hepatitis A IgM Ab Non-reactive (NonReactive) 08/08/21 13:55 Hep Bs Antigen Nonreactive (Negative) 08/08/21 13:55 Hep B Core IgM Ab Non-reactive (NonReactive) 08/08/21 13:55 Hepatitis C Antibody Reactive (NonReactive) A 08/08/21 13:55 Active Medications - Current Medications Current Medications: Generic Name Dose Route Start Last Admin Trade Name Freq PRN Reason Stop Dose Admin Acetaminophen 650 mg 10/21/21 22:40 Acetaminophen 325 Mg Tab PO Q4H PRN Pain MILD(1-3)/Fever >100.5/PÉREZ Albuterol 2.5 mg 08/07/21 22:48 Albuterol 2.5 Mg/3 Ml Nebu IH Q4HRT PRN Shortness Of Breath Amlodipine Besylate 5 mg 08/08/21 10:00 08/08/21 10:13 Amlodipine 5 Mg Tab PO Not Given QDAY [facility] Aspirin 81 mg 08/08/21 11:00 08/08/21 11:28 Aspirin Ec 81 Mg Tab PO Not Given QDAY [facility] Atorvastatin Calcium 40 mg 08/08/21 22:00 08/08/21 23:41 Atorvastatin 40 Mg Tab PO Not Given QHS [facility] Clonidine HCl 0.2 mg 08/08/21 22:00 08/08/21 23:41 Clonidine 0.2 Mg Tab PO Not Given QHS [facility] Clopidogrel Bisulfate 75 mg 08/08/21 10:00 08/08/21 10:13 Clopidogrel 75 Mg Tab PO Not Given QDAY [facility] Dextrose 25 ml 08/08/21 17:38 Dextrose 50% In Water (25gm) 50 Ml Syringe IV Q30MIN PRN Hypoglycemia Protocol Furosemide 40 mg 08/08/21 10:00 08/08/21 10:13 Furosemide 40 Mg Tab PO Not Given DAILY [facility] Heparin Sodium (Porcine) 5,000 unit 08/08/21 10:00 08/08/21 23:27 Heparin 5,000 Unit/1 Ml Vial SUB-Q 5,000 unit Q12HR LADAN Administration Hydralazine HCl 50 mg 08/07/21 23:00 08/08/21 23:40 Hydralazine 25 Mg Tab PO Not Given BID [facility] Hydralazine HCl 10 mg 08/08/21 04:22 08/08/21 21:05 Hydralazine 20 Mg/1 Ml Inj IV 10 mg Q6H PRN Administration Hypertension Sodium Chloride 100 mls @ 999 mls/hr 08/08/21 13:00 Nacl 0.9% IV TITO PRN Hypotension Magnesium Sulfate 2 gm in 50 mls @ 25 mls/hr 08/09/21 07:45 08/09/21 07:32 Magnesium Sulfate 2gm/50ml IV 08/09/21 11:45 25 mls/hr ONCE@0745 [facility] Administration Isosorbide Mononitrate 30 mg 08/08/21 10:00 08/08/21 10:13 Isosorbide Mononitrate Er 30 Mg Tab PO Not Given QDAY [facility] Labetalol HCl 10 mg 08/08/21 08:38 08/08/21 10:00 Labetalol 20 Mg/4 Ml Inj IV 10 mg Q4HR PRN Administration Hypertension Latanoprost 1 drops 08/08/21 18:00 08/08/21 23:40 Latanoprost 0.005% Ophth Soln 2.5 Ml OU Not Given QPM LADAN Metoclopramide HCl 2.5 mg 08/07/21 22:52 Metoclopramide 10 Mg/2 Ml Inj IV Q6H PRN Nausea And Vomiting Metoprolol Tartrate 25 mg 08/08/21 06:00 08/09/21 06:22 Metoprolol Tartrate 25 Mg Tab PO Not Given Q8HR LADAN Ondansetron HCl 4 mg 08/07/21 22:40 Ondansetron 4 Mg/2 Ml Inj IV Q3H PRN Nausea And Vomiting Pantoprazole Sodium 40 mg 08/08/21 10:00 08/08/21 10:13 Pantoprazole 40 Mg Tab PO Not Given QDAY LADAN Sodium Chloride 10 ml 08/08/21 10:00 08/08/21 23:41 Sodium Chloride 0.9% 10 Ml Flush Syringe IV Not Given BID LADAN Sodium Chloride 10 ml 08/07/21 22:40 Sodium Chloride 0.9% 10 Ml Flush Syringe IV PRN PRN LINE FLUSH Tizanidine HCl 4 mg 08/07/21 22:35 Tizanidine Tab 4 Mg Tab PO BID PRN Muscle Spasm
[2021-08-09] MEDS ORDERED: HEPARIN 10,000 UNITS/10 ML VIAL IV PRN (09:40)
--- NOTE | 2021-08-09 09:41 | Consultation ---
History of Present Illness Consult date: 08/09/21 Reason for Consult: Encephalopathy History of present illness: Altered sensation since 08/07 #3.35 Pm History of present illness: 71-year-old female with history of hypertension, insulin-dependent diabetes, end-stage renal disease on hemodialysis brought in by EMS from home for evaluation of unresponsiveness and altered mental status. As per EMS patient had vascular surgery for varicose veins and was prescribed Dilaudid 2 mg every 6 hours. Patient was not responding to painful stimuli. As per EMS patient had pin point pupils. EMS gave the patient Narcan and patient immediately started waking up. Upon arrival in the ER patient was still obtunded but responded to 0.4 mg of Narcan. ED course-patient was started on Narcan drip by the ED physician for persistent unresponsiveness. No fever or chills. No hypoxia. CT brain is unremarkable -she had dialysis yesterday -No urine is available for UDS , Blood Drug screen ? - Past Medical History --Hypertension: Yes --Congestive Heart Failure: Yes --Diabetes: Yes --Renal Disease: Yes (Hx of chronic Kidney Disease) --Arthritis: Yes --Asthma: Yes --Additional medical history: stomach issues. - Surgical History Additional Surgical History: bilateral knee replacements, left shoulder surgery, chronic back pain and leg pain - Social History Smoking Status: Never Smoker -Family history --unavailable Review of Systems ROS: Stated complaint: POSSIBLE OVERDOSE Other details as noted in HPI Comment: All other systems reviewed and negative Constitutional: denies: chills, fever Respiratory: denies: cough, shortness of breath, SOB with exertion Cardiovascular: denies: chest pain, palpitations Gastrointestinal: denies: abdominal pain, nausea, vomiting Musculoskeletal: denies: back pain Neurological: denies: headache Medications and Allergies Allergies Allergy/AdvReac Type Severity Reaction Status Date / Time Penicillins Allergy Itching Verified 08/30/18 08:25 Home Medications Medication Instructions Recorded Confirmed Last Taken Type Albuterol Sulfate [Ventolin Hfa] 2 puff IH Q6H PRN 08/30/18 05/02/21 10/08/18 History Amlodipine Besylate [Norvasc] 5 mg PO QDAY 08/30/18 05/02/21 10/08/18 History HYDROcodone/APAP 7.5-325 [[place] 1 each PO DAILY PRN 08/30/18 05/02/21 10/06/18 History 7.5-325 mg TAB] Hydralazine HCl 50 mg PO BID 08/30/18 05/02/21 10/08/18 History Latanoprost 0.005% 1 drop OU QPM 08/30/18 05/02/21 10/08/18 History Pantoprazole [Protonix TAB] 40 mg PO QDAY 08/30/18 05/02/21 10/08/18 History Pregabalin [Lyrica] 200 mg PO BID 08/30/18 05/02/21 10/08/18 History cloNIDine [Catapres] 0.2 mg PO QHS 08/30/18 05/02/21 10/08/18 History tiZANidine [Zanaflex 4mg TAB] 4 mg PO DAILY PRN 08/30/18 05/02/21 10/08/18 History Furosemide [Lasix TAB] 40 mg PO DAILY #30 tablet 10/06/18 05/02/21 10/08/18 Rx Insulin Glargine [Lantus VIAL] 25 units SUB-Q QHS #1 vial 10/06/18 05/02/21 10/08/18 Rx Insulin Lispro [HumaLOG VIAL] 0 units SQ AC #1 vial 10/06/18 05/02/21 10/08/18 Rx Potassium Chloride [K-Dur] 20 meq PO QDAY #30 tablet 10/06/18 05/02/21 10/08/18 Rx Aspirin EC [Halfprin EC] 81 mg PO QDAY #90 tablet 05/02/21 Unknown Rx AtorvaSTATin [Lipitor] 40 mg PO QHS #90 tablet 05/02/21 Unknown Rx Clopidogrel [Plavix] 75 mg PO QDAY #90 tablet 05/02/21 Unknown Rx ISOSORBIDE MONOnitrate [Imdur ER] 30 mg PO QDAY #90 tablet 05/02/21 Unknown Rx Metoprolol [Lopressor TAB] 25 mg PO Q8HR #90 tablet 05/02/21 Unknown Rx Past History Past Medical History: other (See HPI.) Medications and Allergies Allergies Allergy/AdvReac Type Severity Reaction Status Date / Time Penicillins Allergy Itching Verified 08/30/18 08:25 Home Medications Medication Instructions Recorded Confirmed Last Taken Type Albuterol Sulfate [Ventolin Hfa] 2 puff IH Q6H PRN 08/30/18 05/02/21 10/08/18 History Amlodipine Besylate [Norvasc] 5 mg PO QDAY 08/30/18 05/02/21 10/08/18 History HYDROcodone/APAP 7.5-325 [[place] 1 each PO DAILY PRN 08/30/18 08/08/21 10/06/18 History 7.5-325 mg TAB] Hydralazine HCl 50 mg PO BID 08/30/18 08/08/21 10/08/18 History Latanoprost 0.005% 1 drop OU QPM 08/30/18 08/08/21 10/08/18 History tiZANidine [Zanaflex 4mg TAB] 4 mg PO DAILY PRN 08/30/18 08/08/21 10/08/18 History Insulin Glargine [Lantus VIAL] 25 units SUB-Q QHS #1 vial 10/06/18 05/02/21 10/08/18 Rx Insulin Lispro [HumaLOG VIAL] 0 units SQ AC #1 vial 10/06/18 05/02/21 10/08/18 Rx Aspirin EC [Halfprin EC] 81 mg PO QDAY #90 tablet 05/02/21 08/08/21 Unknown Rx AtorvaSTATin [Lipitor] 40 mg PO QHS #90 tablet 05/02/21 08/08/21 Unknown Rx Clopidogrel [Plavix] 75 mg PO QDAY #90 tablet 05/02/21 08/08/21 Unknown Rx ISOSORBIDE MONOnitrate [Imdur ER] 30 mg PO QDAY #90 tablet 05/02/21 Unknown Rx AtorvaSTATin [Lipitor] 40 mg PO QHS 08/08/21 08/08/21 Unknown History Cinacalcet [Sensipar] 30 mg PO QDAY 08/08/21 08/08/21 Unknown History Furosemide [Lasix TAB] 80 mg PO 08/08/21 Unknown History Furosemide [Lasix TAB] 80 mg PO QDAY 08/08/21 08/08/21 Unknown History HYDROmorphone [Dilaudid] 2 mg PO Q8H PRN 08/08/21 08/08/21 Unknown History Metoprolol Succinate [Toprol Xl] 25 mg PO DAILY 08/08/21 08/08/21 Unknown History Nortriptyline [Pamelor] 25 mg PO DAILY 08/08/21 08/08/21 Unknown History calcitrioL [Rocaltrol] 0.5 mcg PO QDAY 08/08/21 08/08/21 Unknown History calcitrioL [Rocaltrol] 0.5 mcg PO QDAY 08/08/21 08/08/21 Unknown History metOLazone [Zaroxolyn] 5 mg PO QDAY 08/08/21 08/08/21 Unknown History Active Meds: Active Medications Acetaminophen (Acetaminophen 325 Mg Tab) 650 mg PO Q4H PRN PRN Reason: Pain MILD(1-3)/Fever >100.5/PÉREZ Albuterol (Albuterol 2.5 Mg/3 Ml Nebu) 2.5 mg IH Q4HRT PRN PRN Reason: Shortness Of Breath Amlodipine Besylate (Amlodipine 5 Mg Tab) 5 mg PO QDAY [facility] Last Admin: 08/08/21 10:13 Dose: Not Given Documented by: Aspirin (Aspirin Ec 81 Mg Tab) 81 mg PO QDAY [facility] Last Admin: 08/08/21 11:28 Dose: Not Given Documented by: Atorvastatin Calcium (Atorvastatin 40 Mg Tab) 40 mg PO QHS [facility] Last Admin: 08/08/21 23:41 Dose: Not Given Documented by: Clonidine HCl (Clonidine 0.2 Mg Tab) 0.2 mg PO QHS [facility] Last Admin: 08/08/21 23:41 Dose: Not Given Documented by: Clopidogrel Bisulfate (Clopidogrel 75 Mg Tab) 75 mg PO QDAY [facility] Last Admin: 08/08/21 10:13 Dose: Not Given Documented by: Dextrose (Dextrose 50% In Water (25gm) 50 Ml Syringe) 25 ml IV Q30MIN PRN; Protocol PRN Reason: Hypoglycemia Heparin Sodium (Porcine) (Heparin 5,000 Unit/1 Ml Vial) 5,000 unit SUB-Q Q12HR [facility] Last Admin: 08/08/21 23:27 Dose: 5,000 unit Documented by: Hydralazine HCl (Hydralazine 25 Mg Tab) 50 mg PO BID [facility] Last Admin: 08/08/21 23:40 Dose: Not Given Documented by: Hydralazine HCl (Hydralazine 20 Mg/1 Ml Inj) 10 mg IV Q6H PRN PRN Reason: Hypertension Last Admin: 08/08/21 21:05 Dose: 10 mg Documented by: Sodium Chloride (Nacl 0.9%) 100 mls @ 999 mls/hr IV TITO PRN PRN Reason: Hypotension Magnesium Sulfate (Magnesium Sulfate 2gm/50ml) 2 gm in 50 mls @ 25 mls/hr IV ONCE@0745 [facility] Stop: 08/09/21 11:45 Last Admin: 08/09/21 07:32 Dose: 25 mls/hr Documented by: Magnesium Sulfate 1 gm/ Sodium (Chloride) 52 mls @ 52 mls/hr IV ONCE ONE Stop: 08/09/21 10:59 Isosorbide Mononitrate (Isosorbide Mononitrate Er 30 Mg Tab) 30 mg PO QDAY [facility] Last Admin: 08/08/21 10:13 Dose: Not Given Documented by: Labetalol HCl (Labetalol 20 Mg/4 Ml Inj) 10 mg IV Q4HR PRN PRN Reason: Hypertension Last Admin: 08/08/21 10:00 Dose: 10 mg Documented by: Latanoprost (Latanoprost 0.005% Ophth Soln 2.5 Ml) 1 drops OU QPM [facility] Last Admin: 08/08/21 23:40 Dose: Not Given Documented by: Metoclopramide HCl (Metoclopramide 10 Mg/2 Ml Inj) 2.5 mg IV Q6H PRN PRN Reason: Nausea And Vomiting Metoprolol Tartrate (Metoprolol Tartrate 25 Mg Tab) 25 mg PO Q8HR [facility] Last Admin: 08/09/21 06:22 Dose: Not Given Documented by: Ondansetron HCl (Ondansetron 4 Mg/2 Ml Inj) 4 mg IV Q3H PRN PRN Reason: Nausea And Vomiting Pantoprazole Sodium (Pantoprazole 40 Mg Tab) 40 mg PO QDAY [facility] Last Admin: 08/08/21 10:13 Dose: Not Given Documented by: Sodium Chloride (Sodium Chloride 0.9% 10 Ml Flush Syringe) 10 ml IV BID [facility] Last Admin: 08/08/21 23:41 Dose: Not Given Documented by: Sodium Chloride (Sodium Chloride 0.9% 10 Ml Flush Syringe) 10 ml IV PRN PRN PRN Reason: LINE FLUSH Tizanidine HCl (Tizanidine Tab 4 Mg Tab) 4 mg PO BID PRN PRN Reason: Muscle Spasm Physical Examination - Vital Signs Vital Signs: Vital Signs Resp Pulse Ox 16 98 08/07/21 13:31 08/07/21 13:31 - Constitutional General appearance: comfortable - EENT EENT: Present: PERRL, mucous membranes moist - Respiratory Respiratory: Present: chest non-tender, lungs clear, rhonchi - Cardiovascular Cardiovascular: Present: regular rate, normal S1, normal S2 Extremities: Present: no peripheral edema bilatateraly, no clubbing, cyanosis - Gastrointestinal Gastrointestinal: Present: normoactive bowel sounds - Integumentary Integumentary: Present: normal - Neurologic Cranial nerve examination: PERRL, EOMI, intact, other (pupils 3 mm reactive sluggish , corneal slightly intact gag is intact , she is braething spontaneously) Detailed motor examination: other (slight withdrawal both lower and to a lesser extent upper to stmuli , planter is down going , nuchal rigidity is noted ) Results - Laboratory Findings CBC and BMP: 08/09/21 04:14 08/09/21 04:14 Abnormal Lab Findings: Abnormal Labs 08/07/21 08/07/21 08/08/21 14:41 14:41 05:11 WBC 11.3 H 13.8 H RBC 2.97 L 3.02 L Hgb 9.6 L 9.4 L Hct 30.0 L MCV 102 H 99 H RDW 19.1 H 19.5 H Plt Count 449 H Lymph % (Auto) 7.6 L Lymph # (Auto) 1.0 L Seg Neutrophils % 74.3 H 87.7 H Seg Neuts % (Manual) 90.0 H Seg Neutrophils # 8.4 H 11.1 H Seg Neutrophils # Man 12.4 H Lymphocytes # (Manual) 0.0 L Monocytes # (Manual) 1.0 H Sodium 136 L Potassium Carbon Dioxide 17 L BUN 22 H Creatinine 6.6 H Glucose 103 H POC Glucose Calcium 8.0 L Magnesium Alkaline Phosphatase Total Protein Albumin Hepatitis C Antibody 08/08/21 08/08/21 08/08/21 05:11 13:55 21:26 WBC RBC Hgb Hct MCV RDW Plt Count Lymph % (Auto) Lymph # (Auto) Seg Neutrophils % Seg Neuts % (Manual) Seg Neutrophils # Seg Neutrophils # Man Lymphocytes # (Manual) Monocytes # (Manual) Sodium Potassium 5.3 H Carbon Dioxide 16 L BUN 25 H Creatinine 6.6 H Glucose POC Glucose 127 H Calcium 7.8 L Magnesium Alkaline Phosphatase 159 H Total Protein 6.2 L Albumin 2.8 L Hepatitis C Antibody Reactive A 08/09/21 08/09/21 08/09/21 03:58 04:14 04:14 WBC 11.8 H RBC 2.86 L Hgb 9.2 L Hct 28.6 L MCV 100 H RDW 19.4 H Plt Count Lymph % (Auto) Lymph # (Auto) Seg Neutrophils % Seg Neuts % (Manual) Seg Neutrophils # Seg Neutrophils # Man Lymphocytes # (Manual) Monocytes # (Manual) Sodium Potassium Carbon Dioxide BUN Creatinine 4.4 H Glucose 142 H POC Glucose 136 H Calcium 7.9 L Magnesium 1.60 L Alkaline Phosphatase Total Protein Albumin Hepatitis C Antibody 08/09/21 06:31 WBC RBC Hgb Hct MCV RDW Plt Count Lymph % (Auto) Lymph # (Auto) Seg Neutrophils % Seg Neuts % (Manual) Seg Neutrophils # Seg Neutrophils # Man Lymphocytes # (Manual) Monocytes # (Manual) Sodium Potassium Carbon Dioxide BUN Creatinine Glucose POC Glucose 140 H Calcium Magnesium Alkaline Phosphatase Total Protein Albumin Hepatitis C Antibody Assessment and Plan Assessment and Plan Assessment and plan: 71-year-old female with history of hypertension, insulin-dependent diabetes, end-stage renal disease on hemodialysis brought in by EMS from home for evalua tion of unresponsiveness and altered mental status. As per EMS patient had vascular surgery for varicose veins and was prescribed Dilaudid 2 mg every 6 hours. Patient was not responding to painful stimuli. As per EMS patient had pinpoint pupils. EMS gave the patient Narcan and patient immediately started waking up. Upon arrival in the ER patient was still obtunded but responded to 0.4 mg of Narcan. - Patient Problems # Acute metabolic encephalopathy -Probably secondary to Dilaudid and its effects on a renal failure patient -Patient is on Narcan drip -IV fluids as necessary and gently because the patient also has CHF -Ct brain is unremarkable -UDS unable to do ? Serum drug screen -EEG if possible -No sign to suggest Infection , Vital stables she is afebril with slightly elevated WbC no shift # Narcotic overdose -Patient was given Dilaudid 2 mg every 6 hours after varicose vein surgery -slight response to Narcan # ESRD (end stage renal disease) Nephrology consulted Continue dialysis as per schedule # IDDM (insulin dependent diabetes mellitus) Coverage for now Resume home insulin once she is more alert Check hemoglobin A1c # Hypertension -Continue antihypertensives and adjust medications as necessary # Coronary artery disease -Continue Plavix and aspirin # Glaucoma -Continue latanoprost eyedrops # DVT prophylaxis On anticoagulation and GI prophylaxis PLAN 1- Moniter Vital sign and electrolytes 2- Consider Brain MRI if not getting better r/o Anoxic vs infectious etiology 3- EEG if unable to do might need to consider transfer , seizure is a possibility. 4- hemodialysis 5- Drug screen when possible ? she is admitted by 08-07 afternoon 6- Consider LP No clear sign of infection is noted . over all prognosis is quarded The aggregate critical care time was 40 minutes. The time is in addition to time spent performing reported procedures but includes the followin: Data review and interpretation 2: Patient assessment and monitoring of vital signs 3: Documentation 4:: Medication orders and management Advance Directives: Yes (Full code) VTE prophylaxis?: Chemical Plan of care discussed with patient/family: Yes
[2021-08-09] MEDS ORDERED: MAGNESIUM SULFATE 1 GM in SODIUM CHLORIDE 0.9% 50 ML IV ONE ×2 (10:00→21:20)
[2021-08-09] MEDS: HEPARIN 5,000 UNIT/1 ML VIAL SUB-Q SCH ×2 (10:05→22:43)
[2021-08-09] MEDS: hydrALAZINE 25 MG TAB PO SCH (10:06)
[2021-08-09] MEDS: PANTOPRAZOLE 40 MG TAB PO SCH (10:06)
[2021-08-09] MEDS: ASPIRIN EC 81 MG TAB PO SCH (10:06)
[2021-08-09] MEDS: CLOPIDOGREL 75 MG TAB PO SCH (10:06)
[2021-08-09] MEDS: amLODIPine 5 MG TAB PO SCH (10:06)
--- NOTE | 2021-08-09 10:09 | XRay Report ---
ABDOMEN 1 VIEW, 08/09/2021 INDICATION / CLINICAL INFORMATION: Nasogastric tube placement COMPARISON: None. FINDINGS: TUBES / LINES: An esophagogastric tube is present with tip overlying the expected position of the dis debbie stomach/proximal duodenum. BOWEL GAS PATTERN: The bowel gas pattern appears nonobstructive. ADDITIONAL FINDINGS: There are moderate bony degenerative changes of the lumbar spine. IMPRESSION: 1. Esophagogastric tube is present with tip overlying the expected position of the distal stomach/pro ximal duodenum. Signer Name: Danielle Astorga MD Signed: 08/09/2021 10:05 AM Workstation Name: [email or web address]
--- NOTE | 2021-08-09 11:02 | Progress Note ---
Assessment and Plan 70 y/o with ESRD on HD admitted with altered mental status, thought secondary to narcotic overdose 1. HD per renal 2. Agree with neurology evaluation 3. Per [employer]PORATE COUNSELOR ordering UDS on straight cath, hopeful patient will have urine 4. Guarded prognosis. Subjective Date of service: 08/09/21 Interval history: had HD on yesterday but mental status is not significantly improved. Magnesium is low. Objective - Constitutional Vitals: Vital Signs - 12hr 08/08/21 08/08/21 08/08/21 23:01 23:36 23:39 Temperature 97.5 F L Pulse Rate 110 H 111 H Respiratory 7 L 12 Rate Blood Pressure 128/76 152/71 Blood Pressure [Right] O2 Sat by Pulse 99 98 Oximetry 08/09/21 08/09/21 08/09/21 00:01 00:38 01:01 Temperature Pulse Rate 105 H 108 H Respiratory 9 L 11 L 11 L Rate Blood Pressure 152/71 156/82 Blood Pressure [Right] O2 Sat by Pulse 99 96 97 Oximetry 08/09/21 08/09/21 08/09/21 02:01 03:01 03:15 Temperature 97.4 F L Pulse Rate 123 H 105 H 105 H Respiratory 13 4 L 11 L Rate Blood Pressure 173/85 168/78 Blood Pressure 168/78 [Right] O2 Sat by Pulse 99 98 98 Oximetry 08/09/21 08/09/21 08/09/21 04:01 05:00 05:01 Temperature 98.0 F Pulse Rate 89 93 H Respiratory 8 L 8 L Rate Blood Pressure 160/77 134/70 Blood Pressure [Right] O2 Sat by Pulse 95 97 Oximetry 08/09/21 08/09/21 08/09/21 06:01 07:01 07:15 Temperature Pulse Rate 97 H 89 92 H Respiratory 12 9 L 11 L Rate Blood Pressure 165/78 154/71 Blood Pressure 143/63 [Right] O2 Sat by Pulse 100 98 99 Oximetry 08/09/21 10:37 Temperature Pulse Rate 84 Respiratory 16 Rate Blood Pressure Blood Pressure 150/72 [Right] O2 Sat by Pulse 98 Oximetry - Labs CBC & Chem 7: 08/09/21 04:14 08/09/21 04:14 Labs: Abnormal lab results 08/08/21 08/08/21 08/08/21 Range/Units 05:11 13:55 21:26 WBC (4.5-11.0) K/mm3 RBC (3.65-5.03) M/mm3 Hgb (10.1-14.3) gm/dl Hct (30.3-42.9) % MCV (79-97) fl RDW (13.2-15.2) % Seg Neuts % (Manual) 90.0 H (40.0-70.0) % Seg Neutrophils # Man 12.4 H (1.8-7.7) K/mm3 Lymphocytes # (Manual) 0.0 L (1.2-5.4) K/mm3 Monocytes # (Manual) 1.0 H (0.0-0.8) K/mm3 Creatinine (0.6-1.2) mg/dL Glucose (65-100) mg/dL POC Glucose 127 H (70-105) mg/dL Calcium (8.4-10.2) mg/dL Magnesium (1.7-2.3) mg/dL Hepatitis C Antibody Reactive A (NonReactive) 08/09/21 08/09/21 08/09/21 Range/Units 03:58 04:14 04:14 WBC 11.8 H (4.5-11.0) K/mm3 RBC 2.86 L (3.65-5.03) M/mm3 Hgb 9.2 L (10.1-14.3) gm/dl Hct 28.6 L (30.3-42.9) % MCV 100 H (79-97) fl RDW 19.4 H (13.2-15.2) % Seg Neuts % (Manual) (40.0-70.0) % Seg Neutrophils # Man (1.8-7.7) K/mm3 Lymphocytes # (Manual) (1.2-5.4) K/mm3 Monocytes # (Manual) (0.0-0.8) K/mm3 Creatinine 4.4 H (0.6-1.2) mg/dL Glucose 142 H (65-100) mg/dL POC Glucose 136 H (70-105) mg/dL Calcium 7.9 L (8.4-10.2) mg/dL Magnesium 1.60 L (1.7-2.3) mg/dL Hepatitis C Antibody (NonReactive) 08/09/21 Range/Units 06:31 WBC (4.5-11.0) K/mm3 RBC (3.65-5.03) M/mm3 Hgb (10.1-14.3) gm/dl Hct (30.3-42.9) % MCV (79-97) fl RDW (13.2-15.2) % Seg Neuts % (Manual) (40.0-70.0) % Seg Neutrophils # Man (1.8-7.7) K/mm3 Lymphocytes # (Manual) (1.2-5.4) K/mm3 Monocytes # (Manual) (0.0-0.8) K/mm3 Creatinine (0.6-1.2) mg/dL Glucose (65-100) mg/dL POC Glucose 140 H (70-105) mg/dL Calcium (8.4-10.2) mg/dL Magnesium (1.7-2.3) mg/dL Hepatitis C Antibody (NonReactive) Medications & Allergies - Medications Allergies/Adverse Reactions: Allergies Penicillins Allergy (Verified 08/30/18 08:25) Itching Home Medications: Home Medications Medication Instructions Recorded Confirmed Last Taken Type Albuterol Sulfate [Ventolin Hfa] 2 puff IH Q6H PRN 08/30/18 05/02/21 10/08/18 History Amlodipine Besylate [Norvasc] 5 mg PO QDAY 08/30/18 05/02/21 10/08/18 History HYDROcodone/APAP 7.5-325 [[place] 1 each PO DAILY PRN 08/30/18 08/08/21 10/06/18 History 7.5-325 mg TAB] Hydralazine HCl 50 mg PO BID 08/30/18 08/08/21 10/08/18 History Latanoprost 0.005% 1 drop OU QPM 08/30/18 08/08/21 10/08/18 History tiZANidine [Zanaflex 4mg TAB] 4 mg PO DAILY PRN 08/30/18 08/08/21 10/08/18 History Insulin Glargine [Lantus VIAL] 25 units SUB-Q QHS #1 vial 10/06/18 05/02/21 10/08/18 Rx Insulin Lispro [HumaLOG VIAL] 0 units SQ AC #1 vial 10/06/18 05/02/21 10/08/18 Rx Aspirin EC [Halfprin EC] 81 mg PO QDAY #90 tablet 05/02/21 08/08/21 Unknown Rx AtorvaSTATin [Lipitor] 40 mg PO QHS #90 tablet 05/02/21 08/08/21 Unknown Rx Clopidogrel [Plavix] 75 mg PO QDAY #90 tablet 05/02/21 08/08/21 Unknown Rx ISOSORBIDE MONOnitrate [Imdur ER] 30 mg PO QDAY #90 tablet 05/02/21 Unknown Rx AtorvaSTATin [Lipitor] 40 mg PO QHS 08/08/21 08/08/21 Unknown History Cinacalcet [Sensipar] 30 mg PO QDAY 08/08/21 08/08/21 Unknown History Furosemide [Lasix TAB] 80 mg PO 08/08/21 Unknown History Furosemide [Lasix TAB] 80 mg PO QDAY 08/08/21 08/08/21 Unknown History HYDROmorphone [Dilaudid] 2 mg PO Q8H PRN 08/08/21 08/08/21 Unknown History Metoprolol Succinate [Toprol Xl] 25 mg PO DAILY 08/08/21 08/08/21 Unknown History Nortriptyline [Pamelor] 25 mg PO DAILY 08/08/21 08/08/21 Unknown History calcitrioL [Rocaltrol] 0.5 mcg PO QDAY 08/08/21 08/08/21 Unknown History calcitrioL [Rocaltrol] 0.5 mcg PO QDAY 08/08/21 08/08/21 Unknown History metOLazone [Zaroxolyn] 5 mg PO QDAY 08/08/21 08/08/21 Unknown History Active Medications: Generic Name Dose Route Start Last Admin Trade Name Freq PRN Reason Stop Dose Admin Acetaminophen 650 mg 08/07/21 22:40 Acetaminophen 325 Mg Tab PO Q4H PRN Pain MILD(1-3)/Fever >100.5/PÉREZ Albuterol 2.5 mg 08/07/21 22:48 Albuterol 2.5 Mg/3 Ml Nebu IH Q4HRT PRN Shortness Of Breath Amlodipine Besylate 5 mg 08/08/21 10:00 08/09/21 10:06 Amlodipine 5 Mg Tab PO 5 mg QDAY LADAN Administration Aspirin 81 mg 08/08/21 11:00 08/09/21 10:06 Aspirin Ec 81 Mg Tab PO 81 mg QDAY LADAN Administration Atorvastatin Calcium 40 mg 08/08/21 22:00 08/08/21 23:41 Atorvastatin 40 Mg Tab PO Not Given QHS [facility]AN Clonidine HCl 0.2 mg 08/08/21 22:00 08/08/21 23:41 Clonidine 0.2 Mg Tab PO Not Given QHS [facility]AN Clopidogrel Bisulfate 75 mg 08/08/21 10:00 08/09/21 10:06 Clopidogrel 75 Mg Tab PO 75 mg QDAY LADAN Administration Dextrose 25 ml 08/08/21 17:38 Dextrose 50% In Water (25gm) 50 Ml Syringe IV Q30MIN PRN Hypoglycemia Protocol Heparin Sodium (Porcine) 5,000 unit 08/08/21 10:00 08/09/21 10:05 Heparin 5,000 Unit/1 Ml Vial SUB-Q 5,000 unit Q12HR LADAN Administration Heparin Sodium (Porcine) 3,000 unit 08/09/21 09:40 Heparin 10,000 Units/10 Ml Vial IV TITO PRN hemodialysis Hydralazine HCl 50 mg 08/07/21 23:00 08/09/21 10:06 Hydralazine 25 Mg Tab PO 50 mg BID [facility]ADAN Administration Hydralazine HCl 10 mg 08/08/21 04:22 08/08/21 21:05 Hydralazine 20 Mg/1 Ml Inj IV 10 mg Q6H PRN Administration Hypertension Sodium Chloride 100 mls @ 999 mls/hr 08/08/21 13:00 Nacl 0.9% IV TITO PRN Hypotension Magnesium Sulfate 2 gm in 50 mls @ 25 mls/hr 08/09/21 07:45 08/09/21 07:32 Magnesium Sulfate 2gm/50ml IV 08/09/21 11:45 25 mls/hr ONCE@0745 LADAN Administration Magnesium Sulfate 1 gm/ Sodium 52 mls @ 52 mls/hr 08/09/21 10:00 08/09/21 10:40 Chloride IV 08/09/21 10:59 52 mls/hr ONCE ONE Administration Isosorbide Mononitrate 30 mg 08/08/21 10:00 08/09/21 10:40 Isosorbide Mononitrate Er 30 Mg Tab PO 30 mg QDAY LADAN Administration Labetalol HCl 10 mg 08/08/21 08:38 08/08/21 10:00 Labetalol 20 Mg/4 Ml Inj IV 10 mg Q4HR PRN Administration Hypertension Latanoprost 1 drops 08/08/21 18:00 08/08/21 23:40 Latanoprost 0.005% Ophth Soln 2.5 Ml OU Not Given QPM [facility]DAAN Metoclopramide HCl 2.5 mg 08/07/21 22:52 Metoclopramide 10 Mg/2 Ml Inj IV Q6H PRN Nausea And Vomiting Metoprolol Tartrate 25 mg 08/08/21 06:00 08/09/21 06:22 Metoprolol Tartrate 25 Mg Tab PO Not Given Q8HR [facility]AN Ondansetron HCl 4 mg 08/07/21 22:40 Ondansetron 4 Mg/2 Ml Inj IV Q3H PRN Nausea And Vomiting Pantoprazole Sodium 40 mg 08/08/21 10:00 08/09/21 10:06 Pantoprazole 40 Mg Tab PO 40 mg QDAY LADAN Administration Sodium Chloride 10 ml 08/08/21 10:00 08/09/21 10:00 Sodium Chloride 0.9% 10 Ml Flush Syringe IV 10 ml BID [facility]ADAN Administration Sodium Chloride 10 ml 08/07/21 22:40 Sodium Chloride 0.9% 10 Ml Flush Syringe IV PRN PRN LINE FLUSH Tizanidine HCl 4 mg 08/07/21 22:35 Tizanidine Tab 4 Mg Tab PO BID PRN Muscle Spasm HEART Score - HEART Score Age: > 65 Risk factors: > 3 risk factors or hx of atherosclerotic disease Troponin: < normal limit - Critical Actions Critical Actions: 0-3 pts:0.9-1.7%risk of adverse cardiac event.Candidate for discharge
--- NOTE | 2021-08-09 12:21 | Electrocardiograph Report ---
[facility] Test Date: 2021-08-08 Test Time: 21:04:12 Pat Name: ALICIA GARCIA Department: Room: [place] [address] Gender: F [employer] Tender: : 1950 Requested By: SUNNY OCHOA Order Number: [id number] Reading MD: Keanu Baird Measurements Intervals [place] Rate: 105 P: -2 LA: 150 QRS: 75 QRSD: 86 T: 15 QT: 403 QTc: 535 Interpretive Statements Sinus tachycardia Anterior infarct, old Prolonged QT interval Compared to ECG 05/01/2021 07:58:54 Myocardial infarct finding now present Sinus rhythm no longer present Left anterior fascicular block no longer present T-wave abnormality no longer present Possible ischemia no longer present Electronically Signed On 08-09-2021 12:21:31 EDT by Keanu Baird
--- NOTE | 2021-08-09 13:08 | Progress Note ---
Assessment and Plan 1. ESRD: Patient is on maintenance HD, MWF schedule. Per she was switched to HD about 2 months ago 2/2 calciphylaxis. Meds dosage based on GFR. Last outpatient HD 08/04. Hemodialysis: 08/08. HD today. 2. FEN: Hyperkalemia, s/p HD. Anion-gap metabolic acidosis, s/p HD. Replete Mg. Monitor lytes and volume status. 3. Acute metabolic encephalopathy, POA: 2/2 narcotic OD. S/p Narcan drip. CT head negative. Seen by Neuro. Monitor. 4. CAD s/p stent. Plavix, Statin, Aspirin, BB. Echo; EF 60%, LVH. 5. Anemia: Epogen with HD. 6. HTN. 7. Type 2 DM. Subjective: Patient was seen and examined at the bedside. Examination: General appearance: well-developed, well-nourished, appears stated age, not in distress HEENT: ATNC, pupils equal Neck: trachea midline Respiratory: Clear to Auscultation Cardiology: regular, S1S2, no murmur Gastrointestinal: normoactive bowel sounds, not tender, PD catheter noted Integumentary: no rash, warm and dry Neurologic: unresponsive Ext: no edema Hemodialysis access: R IJ tunnel catheter Subjective Date of service: 08/09/21 Objective - Vital Signs Vital signs: Vital Signs - 12hr 08/09/21 08/09/21 08/09/21 02:01 03:01 03:15 Temperature 97.4 F L Pulse Rate 123 H 105 H 105 H Respiratory 13 4 L 11 L Rate Blood Pressure 173/85 168/78 Blood Pressure 168/78 [Right] O2 Sat by Pulse 99 98 98 Oximetry 08/09/21 08/09/21 08/09/21 04:01 05:00 05:01 Temperature 98.0 F Pulse Rate 89 93 H Respiratory 8 L 8 L Rate Blood Pressure 160/77 134/70 Blood Pressure [Right] O2 Sat by Pulse 95 97 Oximetry 08/09/21 08/09/21 08/09/21 06:01 07:01 07:15 Temperature Pulse Rate 97 H 89 92 H Respiratory 12 9 L 11 L Rate Blood Pressure 165/78 154/71 Blood Pressure 143/63 [Right] O2 Sat by Pulse 100 98 99 Oximetry 08/09/21 10:37 Temperature Pulse Rate 84 Respiratory 16 Rate Blood Pressure Blood Pressure 150/72 [Right] O2 Sat by Pulse 98 Oximetry - Lab 08/09/21 04:14 08/09/21 04:14 Most recent lab results Calcium 7.9 mg/dL (8.4-10.2) L 08/09/21 04:14 Phosphorus 4.20 mg/dL (2.5-4.5) 08/09/21 04:14 Magnesium 1.60 mg/dL (1.7-2.3) L 08/09/21 04:14 Medications & Allergies - Medications Allergies/Adverse Reactions: Allergies Penicillins Allergy (Verified 08/30/18 08:25) Itching Home Medications: Home Medications Medication Instructions Recorded Confirmed Last Taken Type Albuterol Sulfate [Ventolin Hfa] 2 puff IH Q6H PRN 08/30/18 05/02/21 10/08/18 History Amlodipine Besylate [Norvasc] 5 mg PO QDAY 08/30/18 05/02/21 10/08/18 History HYDROcodone/APAP 7.5-325 [[place] 1 each PO DAILY PRN 08/30/18 08/08/21 10/06/18 History 7.5-325 mg TAB] Hydralazine HCl 50 mg PO BID 08/30/18 08/08/21 10/08/18 History Latanoprost 0.005% 1 drop OU QPM 08/30/18 08/08/21 10/08/18 History tiZANidine [Zanaflex 4mg TAB] 4 mg PO DAILY PRN 08/30/18 08/08/21 10/08/18 History Insulin Glargine [Lantus VIAL] 25 units SUB-Q QHS #1 vial 10/06/18 05/02/21 10/08/18 Rx Insulin Lispro [HumaLOG VIAL] 0 units SQ AC #1 vial 10/06/18 05/02/21 10/08/18 Rx Aspirin EC [Halfprin EC] 81 mg PO QDAY #90 tablet 05/02/21 08/08/21 Unknown Rx AtorvaSTATin [Lipitor] 40 mg PO QHS #90 tablet 05/02/21 08/08/21 Unknown Rx Clopidogrel [Plavix] 75 mg PO QDAY #90 tablet 05/02/21 08/08/21 Unknown Rx ISOSORBIDE MONOnitrate [Imdur ER] 30 mg PO QDAY #90 tablet 05/02/21 Unknown Rx AtorvaSTATin [Lipitor] 40 mg PO QHS 08/08/21 08/08/21 Unknown History Cinacalcet [Sensipar] 30 mg PO QDAY 08/08/21 08/08/21 Unknown History Furosemide [Lasix TAB] 80 mg PO 08/08/21 Unknown History Furosemide [Lasix TAB] 80 mg PO QDAY 08/08/21 08/08/21 Unknown History HYDROmorphone [Dilaudid] 2 mg PO Q8H PRN 08/08/21 08/08/21 Unknown History Metoprolol Succinate [Toprol Xl] 25 mg PO DAILY 08/08/21 08/08/21 Unknown History Nortriptyline [Pamelor] 25 mg PO DAILY 08/08/21 08/08/21 Unknown History calcitrioL [Rocaltrol] 0.5 mcg PO QDAY 08/08/21 08/08/21 Unknown History calcitrioL [Rocaltrol] 0.5 mcg PO QDAY 08/08/21 08/08/21 Unknown History metOLazone [Zaroxolyn] 5 mg PO QDAY 08/08/21 08/08/21 Unknown History Active Medications: Generic Name Dose Route Start Last Admin Trade Name Freq PRN Reason Stop Dose Admin Acetaminophen 650 mg 08/07/21 22:40 Acetaminophen 325 Mg Tab PO Q4H PRN Pain MILD(1-3)/Fever >100.5/PÉREZ Albuterol 2.5 mg 08/07/21 22:48 Albuterol 2.5 Mg/3 Ml Nebu IH Q4HRT PRN Shortness Of Breath Amlodipine Besylate 5 mg 08/08/21 10:00 08/09/21 10:06 Amlodipine 5 Mg Tab PO 5 mg QDAY LADAN Administration Aspirin 81 mg 08/08/21 11:00 08/09/21 10:06 Aspirin Ec 81 Mg Tab PO 81 mg QDAY LADAN Administration Atorvastatin Calcium 40 mg 08/08/21 22:00 08/08/21 23:41 Atorvastatin 40 Mg Tab PO Not Given QHS LADAN Clonidine HCl 0.2 mg 08/08/21 22:00 08/08/21 23:41 Clonidine 0.2 Mg Tab PO Not Given QHS LADAN Clopidogrel Bisulfate 75 mg 08/08/21:00 08/09/21 10:06 Clopidogrel 75 Mg Tab PO 75 mg QDAY LADAN Administration Dextrose 25 ml 08/08/21 17:38 Dextrose 50% In Water (25gm) 50 Ml Syringe IV Q30MIN PRN Hypoglycemia Protocol Heparin Sodium (Porcine) 5,000 unit 08/08/21 10:00 08/09/21 10:05 Heparin 5,000 Unit/1 Ml Vial SUB-Q 5,000 unit Q12HR LADAN Administration Heparin Sodium (Porcine) 3,000 unit 08/09/21 09:40 Heparin 10,000 Units/10 Ml Vial IV TITO PRN hemodialysis Hydralazine HCl 50 mg 08/07/21 23:00 08/09/21 10:06 Hydralazine 25 Mg Tab PO 50 mg BID LADAN Administration Hydralazine HCl 10 mg 08/08/21 04:22 08/08/21 21:05 Hydralazine 20 Mg/1 Ml Inj IV 10 mg Q6H PRN Administration Hypertension Sodium Chloride 100 mls @ 999 mls/hr 08/08/21 13:00 Nacl 0.9% IV TITO PRN Hypotension Isosorbide Mononitrate 30 mg 08/08/21 10:00 08/09/21 10:40 Isosorbide Mononitrate Er 30 Mg Tab PO 30 mg QDAY [facility] Administration Labetalol HCl 10 mg 08/08/21 08:38 08/08/21 10:00 Labetalol 20 Mg/4 Ml Inj IV 10 mg Q4HR PRN Administration Hypertension Latanoprost 1 drops 08/08/21 18:00 08/08/21 23:40 Latanoprost 0.005% Ophth Soln 2.5 Ml OU Not Given QPM LADAN Metoclopramide HCl 2.5 mg 08/07/21 22:52 Metoclopramide 10 Mg/2 Ml Inj IV Q6H PRN Nausea And Vomiting Metoprolol Tartrate 25 mg 08/08/21 06:00 08/09/21 06:22 Metoprolol Tartrate 25 Mg Tab PO Not Given Q8HR LADAN Ondansetron HCl 4 mg 08/07/21 22:40 Ondansetron 4 Mg/2 Ml Inj IV Q3H PRN Nausea And Vomiting Pantoprazole Sodium 40 mg 08/08/21 10:00 08/09/21 10:06 Pantoprazole 40 Mg Tab PO 40 mg QDAY LADAN Administration Sodium Chloride 10 ml 08/08/21 10:00 08/09/21 10:00 Sodium Chloride 0.9% 10 Ml Flush Syringe IV 10 ml BID LADAN Administration Sodium Chloride 10 ml 08/07/21 22:40 Sodium Chloride 0.9% 10 Ml Flush Syringe IV PRN PRN LINE FLUSH Tizanidine HCl 4 mg 08/07/21 22:35 Tizanidine Tab 4 Mg Tab PO BID PRN Muscle Spasm
[2021-08-09] MEDS: METOPROLOL TARTRATE 25 MG TAB FEEDTUBE SCH ×2 (14:07→22:41)
[2021-08-09] MEDS: ASPIRIN 81 MG TAB CHEW FEEDTUBE SCH (14:07)
[2021-08-09] MEDS: LANSOPRAZOLE 30 MG SOLUTAB FEEDTUBE SCH (15:10)
--- NOTE | 2021-08-09 15:39 | Progress Note ---
<ANAYELI DENISE - Last Filed: 08/09/21 15:46> Assessment and Plan Assessment and plan: This is a 70-year-old female with HTN, DM, ESRD on HD, calciphylaxis, secondary hyperparathyroidism, neuropathy admitted for possible narcotic overdose with leukocytosis, hyperkalemia and elevated BUN/creatinine. Neuro: Possible narcotic overdose, acute metabolic encephalopathy, glaucoma -S/p IVP Narcan x2 -S/p Narcan drip -Aspiration/fall precautions -CT head without contrast with no acute abnormalities -Hold home gabapentin, Dilaudid, Zanaflex -Continue home Lantanoprost -Neurology consulted, appreciate recommendations -Neurology recommends MRI brain, eeg and LP -CCM consulted, appreciate recommendations Cardio: h/o HTN, CHF, CAD -Continue home amlodipine, Plavix, clonidine, aspirin, Lasix, hydralazine, Imdur, metoprolol -Blood pressure monitor per protocol -As needed hydralazine and labetalol -04/2021 echocardiogram showed LVEF of 60%, mild concentric LVH, mild MR, trace AK Respiratory: NAD -Supplemental oxygen as needed -Continues SPO2 monitoring -Pulmonary hygiene GI: GERD, hep C -Patient currently n.p.o. due to altered mental status -NGT placed today -PPI: Protonix -Hep C viral RNA pending : ESRD on HD, calciphylaxis, secondary hyperparathyroidism, hypomagnesemia -Nephrology consulted, appreciate recommendations -HD per nephrology -Strict intake and output -Avoid nephrotoxic medications -Renally dose medication -Daily weights -Replete magnesium and recheck in a.m. Endo: h/o DM II -Hemoglobin A1c 4.6 -Accu-Cheks every 4 -Avoid hypoglycemia -SSI if needed Heme: Anemia of chronic disease -Admit H/H 9.6/30.4 -Epogen per nephrology -Trend CBC -Transfuse to hemoglobin less than 7 -Heparin subcu ID: Leukocytosis -Per PCP s/p possible debridement for calciphylaxis wounds to bilateral lower extremities -May be reactive -Monitor for signs and symptoms of infection -Culture if needed The high probability of a clinically significant, sudden or life threatening deterioration of the [multi] system(s) required my full and direct attention, intervention and personal management. The aggregate critical care time was [60] minutes. This time is in addition to time spent performing reported procedures but includes the following: [x] Data Review and interpretation [x] Patient assessment and monitoring of vital signs [x] Documentation [x] Medication orders and management Disposition Plan: imcu Total Time Spent with Patient (Minutes): 60 History Interval history: This is a 70-year-old female with HTN, CHF, DM, ESRD on HD, calciphylaxis, secondary hypoparathyroidism, neuropathy, gastroparesis who presented to the hospital on 08/07 via EMS for decreased responsiveness and altered mental status . Per EMS patient had surgery for varicose veins (however per PCP patient underwent some surgical debridement for wounds from calciphylaxis) and the patient is prescribed 1 mg of Dilaudid every 6 hours as needed per PCP. EMS stated that the patient was nonresponsive to painful stimuli and reported pinpoint pupils and intermittently administered Narcan and the patient started to wake up. Upon arrival to emergency department patient was still obtunded and responded to additional 0.4 mg of Narcan. Patient was initiated Narcan drip by ED for persistent unresponsiveness. Patient was admitted to the hospital service with consults to [facility] and nephrology. 08/08: On examination patient has minimal responsiveness to tactile stimuli, remains hypertensive and restarted on p.o. medication. However due to concerns for aspiration NG tube was elected to be placed but eventually patient responded to IV labetalol. Patient remained on room air. Nephrology consulted family for initiation of hemodialysis. Per PCP patient was on peritoneal dialysis for 5 due to development of calciphylaxis patient was switched to ESRD for treatment. Per PCP patient only receives relief from painful lesions with Dilaudid 1 mg p.o. and nortriptyline. Patient was downgraded from CCU to IMCU and is receiving hemodialysis. 08/09: NG tube placed given persistent altered mental status, neurology suggests MRI brain and EEG to consider LP if clinically indicated. UDS ordered. Patient had hemodialysis yesterday and it is planned again today. Hospitalist Physical - Constitutional Vitals: Temp Pulse Resp BP Pulse Ox 98.0 F 72 16 161/72 97 08/09/21 05:00 08/09/21 13:51 08/09/21 13:51 08/09/21 13:51 08/09/21 13:51 General appearance: Present: no acute distress, well-nourished - EENT Eyes: Present: PERRL, EOM intact ENT: dentition normal - Neck Neck: Present: normal ROM - Respiratory Respiratory effort: normal Respiratory: bilateral: CTA, diminished - Cardiovascular Rhythm: regular Heart Sounds: Present: S1 & S2. Absent: systolic murmur, diastolic murmur - Extremities Extremities: no ischemia, pulses intact, pulses symmetrical, No edema, normal temperature, normal color Peripheral Pulses: within normal limits - Abdominal General gastrointestinal: soft, non-tender, non-distended, normal bowel sounds - Integumentary Integumentary: Present: warm, dry - Psychiatric Psychiatric: other - Neurologic Neurologic: other (Patient will open eyes to painful and verbal stimuli, pupils equal and react, patient moans to painful stimuli) - Allied Health Allied health notes reviewed: nursing, RT, social work HEART Score - HEART Score Age: > 65 Risk factors: > 3 risk factors or hx of atherosclerotic disease Troponin: < normal limit - Critical Actions Critical Actions: 0-3 pts:0.9-1.7%risk of adverse cardiac event.Candidate for discharge Results - Labs CBC & Chem 7: 08/09/21 04:14 08/09/21 04:14 Labs: Laboratory Last Values WBC 11.8 K/mm3 (4.5-11.0) H 08/09/21 04:14 RBC 2.86 M/mm3 (3.65-5.03) L 08/09/21 04:14 Hgb 9.2 gm/dl (10.1-14.3) L 08/09/21 04:14 Hct 28.6 % (30.3-42.9) L 08/09/21 04:14 MCV 100 fl (79-97) H 08/09/21 04:14 MCH 32 pg (28-32) 08/09/21 04:14 MCHC 32 % (30-34) 08/09/21 04:14 RDW 19.4 % (13.2-15.2) H 08/09/21 04:14 Plt Count 361 K/mm3 (140-440) 08/09/21 04:14 Lymph % (Auto) 7.6 % (13.4-35.0) L 08/08/21 05:11 [place] % (Auto) 4.1 % (0.0-7.3) 08/08/21 05:11 Eos % (Auto) 0.3 % (0.0-4.3) 08/08/21 05:11 Baso % (Auto) 0.3 % (0.0-1.8) 08/08/21 05:11 Lymph # (Auto) 1.0 K/mm3 (1.2-5.4) L 08/08/21 05:11 [place] # (Auto) 0.5 K/mm3 (0.0-0.8) 08/08/21 05:11 Eos # (Auto) 0.0 K/mm3 (0.0-0.4) 08/08/21 05:11 Baso # (Auto) 0.0 K/mm3 (0.0-0.1) 08/08/21 05:11 Add Manual Diff Complete 08/08/21 05:11 Total Counted 100 08/08/21 05:11 Seg Neutrophils % 87.7 % (40.0-70.0) H 08/08/21 05:11 Seg Neuts % (Manual) 90.0 % (40.0-70.0) H 08/08/21 05:11 Monocytes % (Manual) 7.0 % (0.0-7.3) 08/08/21 05:11 Eosinophils % (Manual) 3.0 % (0.0-4.3) 08/08/21 05:11 Nucleated RBC % Not Reportable 08/08/21 05:11 Seg Neutrophils # 11.1 K/mm3 (1.8-7.7) H 08/08/21 05:11 Seg Neutrophils # Man 12.4 K/mm3 (1.8-7.7) H 08/08/21 05:11 Band Neutrophils # 0.0 K/mm3 08/08/21 05:11 Lymphocytes # (Manual) 0.0 K/mm3 (1.2-5.4) L 08/08/21 05:11 Abs React Lymphs (Man) 0.0 K/mm3 08/08/21 05:11 Monocytes # (Manual) 1.0 K/mm3 (0.0-0.8) H 08/08/21 05:11 Eosinophils # (Manual) 0.4 K/mm3 (0.0-0.4) 08/08/21 05:11 Basophils # (Manual) 0.0 K/mm3 (0.0-0.1) 08/08/21 05:11 Metamyelocytes # 0.0 K/mm3 08/08/21 05:11 Myelocytes # 0.0 K/mm3 08/08/21 05:11 Promyelocytes # 0.0 K/mm3 08/08/21 05:11 Blast Cells # 0.0 K/mm3 08/08/21 05:11 WBC Morphology Not Reportable 08/08/21 05:11 Hypersegmented Neuts Not Reportable 08/08/21 05:11 Hyposegmented Neuts Not Reportable 08/08/21 05:11 Hypogranular Neuts Not Reportable 08/08/21 05:11 Smudge Cells Not Reportable 08/08/21 05:11 Toxic Granulation 1+ 08/08/21 05:11 Toxic Vacuolation Not Reportable 08/08/21 05:11 Dohle Bodies Not Reportable 08/08/21 05:11 Pelger-Huet Anomaly Not Reportable 08/08/21 05:11 Arianna Rods Not Reportable 08/08/21 05:11 Platelet Estimate Consistent w auto 08/08/21 05:11 Clumped Platelets Not Reportable 08/08/21 05:11 Plt Clumps, EDTA Not Reportable 08/08/21 05:11 Large Platelets Not Reportable 08/08/21 05:11 Giant Platelets Not Reportable 08/08/21 05:11 Platelet Satelliting Not Reportable 08/08/21 05:11 Plt Morphology Comment Not Reportable 08/08/21 05:11 RBC Morphology Not Reportable 08/08/21 05:11 Dimorphic RBCs Not Reportable 08/08/21 05:11 Polychromasia Not Reportable 08/08/21 05:11 Hypochromasia Not Reportable 08/08/21 05:11 Poikilocytosis Not Reportable 08/08/21 05:11 Anisocytosis Not Reportable 08/08/21 05:11 Microcytosis Not Reportable 08/08/21 05:11 Macrocytosis Not Reportable 08/08/21 05:11 Spherocytes Not Reportable 08/08/21 05:11 Pappenheimer Bodies Not Reportable 08/08/21 05:11 Sickle Cells Not Reportable 08/08/21 05:11 Target Cells Not Reportable 08/08/21 05:11 Tear Drop Cells Not Reportable 08/08/21 05:11 Ovalocytes Not Reportable 08/08/21 05:11 Helmet Cells Not Reportable 08/08/21 05:11 [place] Bodies Not Reportable 08/08/21 05:11 [place] Rings Not Reportable 08/08/21 05:11 Mely Cells Not Reportable 08/08/21 05:11 Bite Cells Not Reportable 08/08/21 05:11 Crenated Cell Not Reportable 08/08/21 05:11 Elliptocytes Not Reportable 08/08/21 05:11 Acanthocytes (Spur) Not Reportable 08/08/21 05:11 Rouleaux Not Reportable 08/08/21 05:11 Hemoglobin C Crystals Not Reportable 08/08/21 05:11 Schistocytes Not Reportable 08/08/21 05:11 Malaria parasites Not Reportable 08/08/21 05:11 Say Bodies Not Reportable 08/08/21 05:11 Hem Pathologist Commnt No 08/08/21 05:11 Sodium 140 mmol/L (137-145) 08/09/21 04:14 Potassium 3.9 mmol/L (3.6-5.0) D 08/09/21 04:14 Chloride 100.9 mmol/L (98-107) 08/09/21 04:14 Carbon Dioxide 23 mmol/L (22-30) D 08/09/21 04:14 Anion Gap 20 mmol/L 08/09/21 04:14 BUN 15 mg/dL (7-17) 08/09/21 04:14 Creatinine 4.4 mg/dL (0.6-1.2) H 08/09/21 04:14 Estimated GFR 10 ml/min 08/09/21 04:14 BUN/Creatinine Ratio 3 % 08/09/21 04:14 Glucose 142 mg/dL (65-100) H 08/09/21 04:14 POC Glucose 140 mg/dL (70-105) H 08/09/21 06:31 Hemoglobin A1c 4.8 % (4-6) 08/09/21 04:14 Lactic Acid 1.10 mmol/L (0.7-2.0) 08/07/21 14:41 Calcium 7.9 mg/dL (8.4-10.2) L 08/09/21 04:14 Phosphorus 4.20 mg/dL (2.5-4.5) 08/09/21 04:14 Magnesium 1.60 mg/dL (1.7-2.3) L 08/09/21 04:14 Total Bilirubin 0.20 mg/dL (0.1-1.2) 08/08/21 05:11 AST 18 units/L (5-40) 08/08/21 05:11 ALT 8 units/L (7-56) 08/08/21 05:11 Alkaline Phosphatase 159 units/L (35-129) H 08/08/21 05:11 Total Protein 6.2 g/dL (6.3-8.2) L 08/08/21 05:11 Albumin 2.8 g/dL (3.9-5) L 08/08/21 05:11 Albumin/Globulin Ratio 0.8 % 08/08/21 05:11 Hepatitis A IgM Ab Non-reactive (NonReactive) 08/08/21 13:55 Hep Bs Antigen Nonreactive (Negative) 08/08/21 13:55 Hep B Core IgM Ab Non-reactive (NonReactive) 08/08/21 13:55 Hepatitis C Antibody Reactive (NonReactive) A 08/08/21 13:55 Active Medications - Current Medications Current Medications: Generic Name Dose Route Start Last Admin Trade Name Freq PRN Reason Stop Dose Admin Acetaminophen 650 mg 08/07/21 22:40 Acetaminophen 325 Mg Tab PO Q4H PRN Pain MILD(1-3)/Fever >100.5/PÉREZ Albuterol 2.5 mg 08/07/21 22:48 Albuterol 2.5 Mg/3 Ml Nebu IH Q4HRT PRN Shortness Of Breath Amlodipine Besylate 5 mg 08/09/21 13:15 Amlodipine 5 Mg Tab FEEDTUBE QDAY LADAN Aspirin 81 mg 08/09/21 14:00 08/09/21 14:07 Aspirin 81 Mg Tab Chew FEEDTUBE 81 mg QDAY LADAN Administration Atorvastatin Calcium 40 mg 08/09/21 13:15 Atorvastatin 40 Mg Tab FEEDTUBE QHS LADAN Clonidine HCl 0.2 mg 08/09/21 13:15 Clonidine 0.2 Mg Tab FEEDTUBE QHS LADAN Clopidogrel Bisulfate 75 mg 08/09/21 13:15 Clopidogrel 75 Mg Tab FEEDTUBE QDAY LADAN Dextrose 25 ml 08/08/21 17:38 Dextrose 50% In Water (25gm) 50 Ml Syringe IV Q30MIN PRN Hypoglycemia Protocol Heparin Sodium (Porcine) 5,000 unit 08/08/21 10:00 08/09/21 10:05 Heparin 5,000 Unit/1 Ml Vial SUB-Q 5,000 unit Q12HR LADAN Administration Heparin Sodium (Porcine) 3,000 unit 08/09/21 09:40 Heparin 10,000 Units/10 Ml Vial IV TITO PRN hemodialysis Hydralazine HCl 10 mg 08/08/21 04:22 08/08/21 21:05 Hydralazine 20 Mg/1 Ml Inj IV 10 mg Q6H PRN Administration Hypertension Hydralazine HCl 50 mg 08/09/21 13:15 Hydralazine 25 Mg Tab FEEDTUBE BID LADAN Sodium Chloride 100 mls @ 999 mls/hr 08/08/21 13:00 Nacl 0.9% IV TITO PRN Hypotension Isosorbide Mononitrate 30 mg 08/08/21 10:00 08/09/21 10:40 Isosorbide Mononitrate Er 30 Mg Tab PO 30 mg QDAY LADAN Administration Labetalol HCl 10 mg 08/08/21 08:38 08/08/21 10:00 Labetalol 20 Mg/4 Ml Inj IV 10 mg Q4HR PRN Administration Hypertension Lansoprazole 30 mg 08/09/21 14:00 08/09/21 15:10 Lansoprazole 30 Mg Solutab FEEDTUBE Not Given QDAY LADAN Latanoprost 1 drops 08/08/21 18:00 08/08/21 23:40 Latanoprost 0.005% Ophth Soln 2.5 Ml OU Not Given QPM LADAN Metoclopramide HCl 2.5 mg 08/07/21 22:52 Metoclopramide 10 Mg/2 Ml Inj IV Q6H PRN Nausea And Vomiting Metoprolol Tartrate 25 mg 08/09/21 13:15 08/09/21 14:07 Metoprolol Tartrate 25 Mg Tab FEEDTUBE 25 mg Q8HR LADAN Administration Ondansetron HCl 4 mg 08/07/21 22:40 Ondansetron 4 Mg/2 Ml Inj IV Q3H PRN Nausea And Vomiting Sodium Chloride 10 ml 08/08/21 10:00 08/09/21 10:00 Sodium Chloride 0.9% 10 Ml Flush Syringe IV 10 ml BID LADAN Administration Sodium Chloride 10 ml 08/07/21 22:40 Sodium Chloride 0.9% 10 Ml Flush Syringe IV PRN PRN LINE FLUSH Tizanidine HCl 4 mg 08/07/21 22:35 Tizanidine Tab 4 Mg Tab PO BID PRN Muscle Spasm <ASHLEE GREEN - Last Filed: 08/10/21 11:25> Assessment and Plan Assessment and plan: I saw and evaluated the patient. Discussed with the nurse practitioner and agree with their findings and plan as documented in this note. Hospitalist Physical - Constitutional Vitals: Temp Pulse Resp BP Pulse Ox 98.3 F 85 13 189/75 100 08/10/21 08:00 08/10/21 09:32 08/10/21 06:51 08/10/21 09:32 08/10/21 06:51 Results - Labs CBC & Chem 7: 08/10/21 05:38 08/10/21 05:38 Labs: Laboratory Last Values WBC 14.0 K/mm3 (4.5-11.0) H 08/10/21 05:38 RBC 2.88 M/mm3 (3.65-5.03) L 08/10/21 05:38 Hgb 9.1 gm/dl (10.1-14.3) L 08/10/21 05:38 Hct 28.8 % (30.3-42.9) L 08/10/21 05:38 MCV 100 fl (79-97) H 08/10/21 05:38 MCH 32 pg (28-32) 08/10/21 05:38 MCHC 32 % (30-34) 08/10/21 05:38 RDW 19.1 % (13.2-15.2) H 08/10/21 05:38 Plt Count 342 K/mm3 (140-440) 08/10/21 05:38 Lymph % (Auto) 7.2 % (13.4-35.0) L 08/10/21 05:38 [place] % (Auto) 5.5 % (0.0-7.3) 08/10/21 05:38 Eos % (Auto) 0.8 % (0.0-4.3) 08/10/21 05:38 Baso % (Auto) 0.2 % (0.0-1.8) 08/10/21 05:38 Lymph # (Auto) 1.0 K/mm3 (1.2-5.4) L 08/10/21 05:38 [place] # (Auto) 0.8 K/mm3 (0.0-0.8) 08/10/21 05:38 Eos # (Auto) 0.1 K/mm3 (0.0-0.4) 08/10/21 05:38 Baso # (Auto) 0.0 K/mm3 (0.0-0.1) 08/10/21 05:38 Add Manual Diff Complete 08/08/21 05:11 Total Counted 100 08/08/21 05:11 Seg Neutrophils % 86.3 % (40.0-70.0) H 08/10/21 05:38 Seg Neuts % (Manual) 90.0 % (40.0-70.0) H 08/08/21 05:11 Monocytes % (Manual) 7.0 % (0.0-7.3) 08/08/21 05:11 Eosinophils % (Manual) 3.0 % (0.0-4.3) 08/08/21 05:11 Nucleated RBC % Not Reportable 08/08/21 05:11 Seg Neutrophils # 12.1 K/mm3 (1.8-7.7) H 08/10/21 05:38 Seg Neutrophils # Man 12.4 K/mm3 (1.8-7.7) H 08/08/21 05:11 Band Neutrophils # 0.0 K/mm3 08/08/21 05:11 Lymphocytes # (Manual) 0.0 K/mm3 (1.2-5.4) L 08/08/21 05:11 Abs React Lymphs (Man) 0.0 K/mm3 08/08/21 05:11 Monocytes # (Manual) 1.0 K/mm3 (0.0-0.8) H 08/08/21 05:11 Eosinophils # (Manual) 0.4 K/mm3 (0.0-0.4) 08/08/21 05:11 Basophils # (Manual) 0.0 K/mm3 (0.0-0.1) 08/08/21 05:11 Metamyelocytes # 0.0 K/mm3 08/08/21 05:11 Myelocytes # 0.0 K/mm3 08/08/21 05:11 Promyelocytes # 0.0 K/mm3 08/08/21 05:11 Blast Cells # 0.0 K/mm3 08/08/21 05:11 WBC Morphology Not Reportable 08/08/21 05:11 Hypersegmented Neuts Not Reportable 08/08/21 05:11 Hyposegmented Neuts Not Reportable 08/08/21 05:11 Hypogranular Neuts Not Reportable 08/08/21 05:11 Smudge Cells Not Reportable 08/08/21 05:11 Toxic Granulation 1+ 08/08/21 05:11 Toxic Vacuolation Not Reportable 08/08/21 05:11 Dohle Bodies Not Reportable 08/08/21 05:11 Pelger-Huet Anomaly Not Reportable 08/08/21 05:11 Arianna Rods Not Reportable 08/08/21 05:11 Platelet Estimate Consistent w auto 08/08/21 05:11 Clumped Platelets Not Reportable 08/08/21 05:11 Plt Clumps, EDTA Not Reportable 08/08/21 05:11 Large Platelets Not Reportable 08/08/21 05:11 Giant Platelets Not Reportable 08/08/21 05:11 Platelet Satelliting Not Reportable 08/08/21 05:11 Plt Morphology Comment Not Reportable 08/08/21 05:11 RBC Morphology Not Reportable 08/08/21 05:11 Dimorphic RBCs Not Reportable 08/08/21 05:11 Polychromasia Not Reportable 08/08/21 05:11 Hypochromasia Not Reportable 08/08/21 05:11 Poikilocytosis Not Reportable 08/08/21 05:11 Anisocytosis Not Reportable 08/08/21 05:11 Microcytosis Not Reportable 08/08/21 05:11 Macrocytosis Not Reportable 08/08/21 05:11 Spherocytes Not Reportable 08/08/21 05:11 Pappenheimer Bodies Not Reportable 08/08/21 05:11 Sickle Cells Not Reportable 08/08/21 05:11 Target Cells Not Reportable 08/08/21 05:11 Tear Drop Cells Not Reportable 08/08/21 05:11 Ovalocytes Not Reportable 08/08/21 05:11 Helmet Cells Not Reportable 08/08/21 05:11 [place] Bodies Not Reportable 08/08/21 05:11 [place] Rings Not Reportable 08/08/21 05:11 Organ Cells Not Reportable 08/08/21 05:11 Bite Cells Not Reportable 08/08/21 05:11 Crenated Cell Not Reportable 08/08/21 05:11 Elliptocytes Not Reportable 08/08/21 05:11 Acanthocytes (Spur) Not Reportable 08/08/21 05:11 Rouleaux Not Reportable 08/08/21 05:11 Hemoglobin C Crystals Not Reportable 08/08/21 05:11 Schistocytes Not Reportable 08/08/21 05:11 Malaria parasites Not Reportable 08/08/21 05:11 Say Bodies Not Reportable 08/08/21 05:11 Hem Pathologist Commnt No 08/08/21 05:11 Sodium 137 mmol/L (137-145) 08/10/21 05:38 Potassium 4.2 mmol/L (3.6-5.0) 08/10/21 05:38 Chloride 99.8 mmol/L (98-107) 08/10/21 05:38 Carbon Dioxide 24 mmol/L (22-30) 08/10/21 05:38 Anion Gap 17 mmol/L 08/10/21 05:38 BUN 38 mg/dL (7-17) H 08/10/21 05:38 Creatinine 3.8 mg/dL (0.6-1.2) H 08/10/21 05:38 Estimated GFR 12 ml/min 08/10/21 05:38 BUN/Creatinine Ratio 10 % 08/10/21 05:38 Glucose 99 mg/dL (65-100) 08/10/21 05:38 POC Glucose 85 mg/dL (70-105) 08/10/21 11:08 Hemoglobin A1c 4.8 % (4-6) 08/09/21 04:14 Lactic Acid 1.10 mmol/L (0.7-2.0) 08/07/21 14:41 Calcium 8.2 mg/dL (8.4-10.2) L 08/10/21 05:38 Phosphorus 4.20 mg/dL (2.5-4.5) 08/09/21 04:14 Magnesium 2.10 mg/dL (1.7-2.3) 08/10/21 05:38 Total Bilirubin 0.20 mg/dL (0.1-1.2) 08/10/21 05:38 AST 21 units/L (5-40) 08/10/21 05:38 ALT 7 units/L (7-56) 08/10/21 05:38 Alkaline Phosphatase 142 units/L (35-129) H 08/10/21 05:38 Ammonia 20.0 umol/L (25-60) L 08/09/21 18:35 Total Protein 5.8 g/dL (6.3-8.2) L 08/10/21 05:38 Albumin 2.5 g/dL (3.9-5) L 08/10/21 05:38 Albumin/Globulin Ratio 0.8 % 08/10/21 05:38 Hepatitis A IgM Ab Non-reactive (NonReactive) 08/08/21 13:55 Hep Bs Antigen Nonreactive (Negative) 08/08/21 13:55 Hep B Core IgM Ab Non-reactive (NonReactive) 08/08/21 13:55 Hepatitis C Antibody Reactive (NonReactive) A 08/08/21 13:55 Active Medications - Current Medications Current Medications: Generic Name Dose Route Start Last Admin Trade Name Freq PRN Reason Stop Dose Admin Acetaminophen 650 mg 08/07/21 22:40 Acetaminophen 325 Mg Tab PO Q4H PRN Pain MILD(1-3)/Fever >100.5/PÉREZ Albuterol 2.5 mg 08/07/21 22:48 Albuterol 2.5 Mg/3 Ml Nebu IH Q4HRT PRN Shortness Of Breath Amlodipine Besylate 5 mg 08/09/21 13:15 08/10/21 09:31 Amlodipine 5 Mg Tab FEEDTUBE 5 mg QDAY LADAN Administration Aspirin 81 mg 08/09/21 14:00 08/10/21 09:31 Aspirin 81 Mg Tab Chew FEEDTUBE 81 mg QDAY LADAN Administration Atorvastatin Calcium 40 mg 08/09/21 13:15 08/09/21 22:41 Atorvastatin 40 Mg Tab FEEDTUBE 40 mg QHS LADAN Administration Clonidine HCl 0.2 mg 08/09/21 13:15 08/09/21 22:41 Clonidine 0.2 Mg Tab FEEDTUBE 0.2 mg QHS LADAN Administration Clopidogrel Bisulfate 75 mg 08/09/21 13:15 08/10/21 09:33 Clopidogrel 75 Mg Tab FEEDTUBE 75 mg QDAY LADAN Administration Dextrose 25 ml 08/08/21 17:38 Dextrose 50% In Water (25gm) 50 Ml Syringe IV Q30MIN PRN Hypoglycemia Protocol Heparin Sodium (Porcine) 5,000 unit 08/08/21 10:00 08/10/21 09:32 Heparin 5,000 Unit/1 Ml Vial SUB-Q 5,000 unit Q12HR LADAN Administration Heparin Sodium (Porcine) 3,000 unit 08/09/21 09:40 Heparin 10,000 Units/10 Ml Vial IV TITO PRN hemodialysis Hydralazine HCl 10 mg 08/08/21 04:22 08/08/21 21:05 Hydralazine 20 Mg/1 Ml Inj IV 10 mg Q6H PRN Administration Hypertension Hydralazine HCl 50 mg 08/09/21 13:15 08/10/21 09:32 Hydralazine 25 Mg Tab FEEDTUBE 50 mg BID LADAN Administration Sodium Chloride 100 mls @ 999 mls/hr 08/08/21 13:00 Nacl 0.9% IV TITO PRN Hypotension Isosorbide Dinitrate 10 mg 08/10/21 14:00 Isosorbide Dinitrate 10 Mg Tab PO Q8H LADAN Labetalol HCl 10 mg 08/08/21 08:38 08/08/21 10:00 Labetalol 20 Mg/4 Ml Inj IV 10 mg Q4HR PRN Administration Hypertension Lansoprazole 30 mg 08/09/21 14:00 08/10/21 09:33 Lansoprazole 30 Mg Solutab FEEDTUBE 30 mg QDAY LADAN Administration Latanoprost 1 drops 08/08/21 18:00 08/09/21 22:42 Latanoprost 0.005% Ophth Soln 2.5 Ml OU Not Given QPM LADAN Metoclopramide HCl 2.5 mg 08/07/21 22:52 Metoclopramide 10 Mg/2 Ml Inj IV Q6H PRN Nausea And Vomiting Metoprolol Tartrate 25 mg 08/09/21 13:15 08/10/21 07:35 Metoprolol Tartrate 25 Mg Tab FEEDTUBE 25 mg Q8HR LADAN Administration Ondansetron HCl 4 mg 08/07/21 22:40 Ondansetron 4 Mg/2 Ml Inj IV Q3H PRN Nausea And Vomiting Sodium Chloride 10 ml 08/08/21 10:00 08/10/21 09:34 Sodium Chloride 0.9% 10 Ml Flush Syringe IV 10 ml BID LADAN Administration Sodium Chloride 10 ml 08/07/21 22:40 Sodium Chloride 0.9% 10 Ml Flush Syringe IV PRN PRN LINE FLUSH Tizanidine HCl 4 mg 08/07/21 22:35 Tizanidine Tab 4 Mg Tab PO BID PRN Muscle Spasm
[2021-08-09] MEDS: cloNIDine 0.2 MG TAB FEEDTUBE SCH (22:41)
[2021-08-09] MEDS: hydrALAZINE 25 MG TAB FEEDTUBE SCH (22:42)
[2021-08-09] MEDS: LATANOPROST 0.005% OPHTH SOLN 2.5 ML OU SCH (22:42)
[2021-08-10 06:13] LABS: Basophils % (Auto) 0.2 % (0.0-1.8); Eosinophils # (Auto) 0.1 K/mm3 (0.0-0.4); Eosinophils % (Auto) 0.8 % (0.0-4.3); Hematocrit 28.8 % (30.3-42.9); Hemoglobin 9.1 gm/dl (10.1-14.3); Lymphocytes % (Auto) 7.2 % (13.4-35.0); Mean Corpuscular HGB Conc 32 % (30-34); Mean Corpuscular Volume 100 fl (79-97); Monocytes # (Auto) 0.8 K/mm3 (0.0-0.8); Monocytes % (Auto) 5.5 % (0.0-7.3); Platelet Count 342 K/mm3 (140-440); Red Blood Count 2.88 M/mm3 (3.65-5.03); Red Cell Distribution Width 19.1 % (13.2-15.2)
[2021-08-10 06:18] LABS: Albumin 2.5 g/dL (3.9-5)
[2021-08-10 07:28] LABS: Calcium 8.2 mg/dL (8.4-10.2)
[2021-08-10] MEDS: METOPROLOL TARTRATE 25 MG TAB FEEDTUBE SCH ×3 (07:35→22:28)
[2021-08-10] MEDS: ASPIRIN 81 MG TAB CHEW FEEDTUBE SCH (09:31)
[2021-08-10] MEDS: amLODIPine 5 MG TAB FEEDTUBE SCH (09:31)
[2021-08-10] MEDS: HEPARIN 5,000 UNIT/1 ML VIAL SUB-Q SCH ×2 (09:32→22:31)
[2021-08-10] MEDS: hydrALAZINE 25 MG TAB FEEDTUBE SCH ×2 (09:32→22:30)
[2021-08-10] MEDS: CLOPIDOGREL 75 MG TAB FEEDTUBE SCH (09:33)
[2021-08-10] MEDS: LANSOPRAZOLE 30 MG SOLUTAB FEEDTUBE SCH (09:33)
--- NOTE | 2021-08-10 09:55 | Progress Note ---
Assessment and Plan Assessment and plan: HPI: This is a 70-year-old female with HTN, CHF, DM, ESRD on HD, calciphylaxis, secondary hypoparathyroidism, neuropathy, gastroparesis who presented to the hospital on 08/07 via EMS for decreased responsiveness and altered mental status. Per EMS patient had surgery for varicose veins (however per PCP patient underwent some surgical debridement for wounds from calciphylaxis) and the mario ent is prescribed 1 mg of Dilaudid every 6 hours as needed per PCP. EMS stated that the patient was nonresponsive to painful stimuli and reported pinpoint pupils and intermittently administered Narcan and the patient started to wake up. Upon arrival to emergency department patient was still obtunded and responded to additional 0.4 mg of Narcan. Patient was initiated Narcan drip by ED for persistent unresponsiveness. Hospital Course to date: Hospital Course to Date: 08/08: On examination patient has minimal responsiveness to tactile stimuli, remains hypertensive and restarted on p.o. medication. However due to concerns for aspiration NG tube was elected to be placed but eventually patient responded to IV labetalol. Patient remained on room air. Nephrology consulted family for initiation of hemodialysis. Per PCP patient was on peritoneal dialysis for 5 d ue to development of calciphylaxis patient was switched to ESRD for treatment. Per PCP patient only receives relief from painful lesions with Dilaudid 1 mg p.o. and nortriptyline. Patient was downgraded from CCU to IMCU and is receiving hemodialysis. 08/09: NG tube placed given persistent altered mental status, neurology suggests MRI brain and EEG to consider LP if clinically indicated. UDS ordered. Patient had hemodialysis yesterday and it is planned again today. 08/10: Pending Brain MRI, EEG, and UDS. Patient opens eyes to her name and withdraws to pain which is an improvement. Scheduled for dialysis today. Will continue supportive management. Assessment and plan: Neuro: Possible narcotic overdose, acute metabolic encephalopathy, glaucoma -S/p IVP Narcan x2 -S/p Narcan drip -Aspiration/fall precautions -CT head without contrast with no acute abnormalities -Hold home gabapentin, Dilaudid, Zanaflex -Continue home Lantanoprost -Neurology consulted, appreciate recommendations -Neurology recommends MRI brain, eeg and LP - UDS however patient is likely anuric so obtaining a sample would be challenging. -CCM consulted, appreciate recommendations Cardio: h/o HTN, CHF, CAD -Continue home amlodipine, Plavix, clonidine, aspirin, Lasix, hydralazine, Imdur, metoprolol -Blood pressure monitor per protocol -As needed hydralazine and labetalol -04/2021 echocardiogram showed LVEF of 60%, mild concentric LVH, mild MR, trace MT Respiratory: NAD -Supplemental oxygen as needed -Continues SPO2 monitoring -Pulmonary hygiene GI: GERD, hep C -Patient currently n.p.o. due to altered mental status -NGT placed today -PPI: Protonix -Hep C viral RNA pending : ESRD on HD, calciphylaxis, secondary hyperparathyroidism, hypomagnesemia -Nephrology consulted, appreciate recommendations -HD per nephrology -Strict intake and output -Avoid nephrotoxic medications -Renally dose medication -Daily weights -Replete magnesium and recheck in a.m. Endo: h/o DM II -Hemoglobin A1c 4.6 -Accu-Cheks every 4 -Avoid hypoglycemia -SSI if needed Heme: Anemia of chronic disease -Admit H/H 9.6/30.4 -Epogen per nephrology -Trend CBC -Transfuse to hemoglobin less than 7 -Heparin subcu ID: Leukocytosis -Per PCP s/p possible debridement for calciphylaxis wounds to bilateral lower extremities -May be reactive -Monitor for signs and symptoms of infection -Culture if needed The high probability of a clinically significant, sudden or life threatening deterioration of the [multi] system(s) required my full and direct attention, intervention and personal management. The aggregate critical care time was [60] minutes. This time is in addition to time spent performing reported procedures but includes the following: [x] Data Review and interpretation [x] Patient assessment and monitoring of vital signs [x] Documentation [x] Medication orders and management Disposition Plan: imcu Total Time Spent with Patient (Minutes): 60 History Interval history: Continues to be confused/obtunded. Some improvement in exam, able to arouse to her name and sternal rub. However, she is still non-communicative Hospitalist Physical - Physical exam Narrative exam: General appearance: comfortable - EENT EENT: Present: PERRL, mucous membranes moist - Respiratory Respiratory: Present: chest non-tender, lungs clear, rhonchi - Cardiovascular Cardiovascular: Present: regular rate, normal S1, normal S2 Extremities: Present: no peripheral edema bilatateraly, no clubbing, cyanosis - Gastrointestinal Gastrointestinal: Present: normoactive bowel sounds - Integumentary Integumentary: Present: normal - Neurologic Cranial nerve examination: PERRL, EOMI, intact, other (pupils 3 mm reactive sluggish , corneal slightly intact gag is intact , she is braething spontaneously) Detailed motor examination: Opens eyes to name however does not follow commands other (slight withdrawal both lower and to a lesser extent upper to stmuli , planter is down going , nuchal rigidity is noted ) - Constitutional Vitals: Temp Pulse Resp BP Pulse Ox 98.3 F 86 13 176/71 100 08/10/21 08:00 08/10/21 07:35 08/10/21 06:51 08/10/21 07:35 08/10/21 06:51 General appearance: Present: no acute distress, well-nourished HEART Score - HEART Score Age: > 65 Risk factors: > 3 risk factors or hx of atherosclerotic disease Troponin: < normal limit - Critical Actions Critical Actions: 0-3 pts:0.9-1.7%risk of adverse cardiac event.Candidate for discharge Results - Labs CBC & Chem 7: 08/10/21 05:38 08/10/21 05:38 Labs: Laboratory Last Values WBC 14.0 K/mm3 (4.5-11.0) H 08/10/21 05:38 RBC 2.88 M/mm3 (3.65-5.03) L 08/10/21 05:38 Hgb 9.1 gm/dl (10.1-14.3) L 08/10/21 05:38 Hct 28.8 % (30.3-42.9) L 08/10/21 05:38 MCV 100 fl (79-97) H 08/10/21 05:38 MCH 32 pg (28-32) 08/10/21 05:38 MCHC 32 % (30-34) 08/10/21 05:38 RDW 19.1 % (13.2-15.2) H 08/10/21 05:38 Plt Count 342 K/mm3 (140-440) 08/10/21 05:38 Lymph % (Auto) 7.2 % (13.4-35.0) L 08/10/21 05:38 [place] % (Auto) 5.5 % (0.0-7.3) 08/10/21 05:38 Eos % (Auto) 0.8 % (0.0-4.3) 08/10/21 05:38 Baso % (Auto) 0.2 % (0.0-1.8) 08/10/21 05:38 Lymph # (Auto) 1.0 K/mm3 (1.2-5.4) L 08/10/21 05:38 [place] # (Auto) 0.8 K/mm3 (0.0-0.8) 08/10/21 05:38 Eos # (Auto) 0.1 K/mm3 (0.0-0.4) 08/10/21 05:38 Baso # (Auto) 0.0 K/mm3 (0.0-0.1) 08/10/21 05:38 Add Manual Diff Complete 08/08/21 05:11 Total Counted 100 08/08/21 05:11 Seg Neutrophils % 86.3 % (40.0-70.0) H 08/10/21 05:38 Seg Neuts % (Manual) 90.0 % (40.0-70.0) H 08/08/21 05:11 Monocytes % (Manual) 7.0 % (0.0-7.3) 08/08/21 05:11 Eosinophils % (Manual) 3.0 % (0.0-4.3) 08/08/21 05:11 Nucleated RBC % Not Reportable 08/08/21 05:11 Seg Neutrophils # 12.1 K/mm3 (1.8-7.7) H 08/10/21 05:38 Seg Neutrophils # Man 12.4 K/mm3 (1.8-7.7) H 08/08/21 05:11 Band Neutrophils # 0.0 K/mm3 08/08/21 05:11 Lymphocytes # (Manual) 0.0 K/mm3 (1.2-5.4) L 08/08/21 05:11 Abs React Lymphs (Man) 0.0 K/mm3 08/08/21 05:11 Monocytes # (Manual) 1.0 K/mm3 (0.0-0.8) H 08/08/21 05:11 Eosinophils # (Manual) 0.4 K/mm3 (0.0-0.4) 08/08/21 05:11 Basophils # (Manual) 0.0 K/mm3 (0.0-0.1) 08/08/21 05:11 Metamyelocytes # 0.0 K/mm3 08/08/21 05:11 Myelocytes # 0.0 K/mm3 08/08/21 05:11 Promyelocytes # 0.0 K/mm3 08/08/21 05:11 Blast Cells # 0.0 K/mm3 08/08/21 05:11 WBC Morphology Not Reportable 08/08/21 05:11 Hypersegmented Neuts Not Reportable 08/08/21 05:11 Hyposegmented Neuts Not Reportable 08/08/21 05:11 Hypogranular Neuts Not Reportable 08/08/21 05:11 Smudge Cells Not Reportable 08/08/21 05:11 Toxic Granulation 1+ 08/08/21 05:11 Toxic Vacuolation Not Reportable 08/08/21 05:11 Dohle Bodies Not Reportable 08/08/21 05:11 Pelger-Huet Anomaly Not Reportable 08/08/21 05:11 Arianna Rods Not Reportable 08/08/21 05:11 Platelet Estimate Consistent w auto 08/08/21 05:11 Clumped Platelets Not Reportable 08/08/21 05:11 Plt Clumps, EDTA Not Reportable 08/08/21 05:11 Large Platelets Not Reportable 08/08/21 05:11 Giant Platelets Not Reportable 08/08/21 05:11 Platelet Satelliting Not Reportable 08/08/21 05:11 Plt Morphology Comment Not Reportable 08/08/21 05:11 RBC Morphology Not Reportable 08/08/21 05:11 Dimorphic RBCs Not Reportable 08/08/21 05:11 Polychromasia Not Reportable 08/08/21 05:11 Hypochromasia Not Reportable 08/08/21 05:11 Poikilocytosis Not Reportable 08/08/21 05:11 Anisocytosis Not Reportable 08/08/21 05:11 Microcytosis Not Reportable 08/08/21 05:11 Macrocytosis Not Reportable 08/08/21 05:11 Spherocytes Not Reportable 08/08/21 05:11 Pappenheimer Bodies Not Reportable 08/08/21 05:11 Sickle Cells Not Reportable 08/08/21 05:11 Target Cells Not Reportable 08/08/21 05:11 Tear Drop Cells Not Reportable 08/08/21 05:11 Ovalocytes Not Reportable 08/08/21 05:11 Helmet Cells Not Reportable 08/08/21 05:11 [place] Bodies Not Reportable 08/08/21 05:11 [place] Rings Not Reportable 08/08/21 05:11 Mely Cells Not Reportable 08/08/21 05:11 Bite Cells Not Reportable 08/08/21 05:11 Crenated Cell Not Reportable 08/08/21 05:11 Elliptocytes Not Reportable 08/08/21 05:11 Acanthocytes (Spur) Not Reportable 08/08/21 05:11 Rouleaux Not Reportable 08/08/21 05:11 Hemoglobin C Crystals Not Reportable 08/08/21 05:11 Schistocytes Not Reportable 08/08/21 05:11 Malaria parasites Not Reportable 08/08/21 05:11 Say Bodies Not Reportable 08/08/21 05:11 Hem Pathologist Commnt No 08/08/21 05:11 Sodium 137 mmol/L (137-145) 08/10/21 05:38 Potassium 4.2 mmol/L (3.6-5.0) 08/10/21 05:38 Chloride 99.8 mmol/L (98-107) 08/10/21 05:38 Carbon Dioxide 24 mmol/L (22-30) 08/10/21 05:38 Anion Gap 17 mmol/L 08/10/21 05:38 BUN 38 mg/dL (7-17) H 08/10/21 05:38 Creatinine 3.8 mg/dL (0.6-1.2) H 08/10/21 05:38 Estimated GFR 12 ml/min 08/10/21 05:38 BUN/Creatinine Ratio 10 % 08/10/21 05:38 Glucose 99 mg/dL (65-100) 08/10/21 05:38 POC Glucose 90 mg/dL (70-105) 08/10/21 07:36 Hemoglobin A1c 4.8 % (4-6) 08/09/21 04:14 Lactic Acid 1.10 mmol/L (0.7-2.0) 08/07/21 14:41 Calcium 8.2 mg/dL (8.4-10.2) L 08/10/21 05:38 Phosphorus 4.20 mg/dL (2.5-4.5) 08/09/21 04:14 Magnesium 2.10 mg/dL (1.7-2.3) 08/10/21 05:38 Total Bilirubin 0.20 mg/dL (0.1-1.2) 08/10/21 05:38 AST 21 units/L (5-40) 08/10/21 05:38 ALT 7 units/L (7-56) 08/10/21 05:38 Alkaline Phosphatase 142 units/L (35-129) H 08/10/21 05:38 Ammonia 20.0 umol/L (25-60) L 08/09/21 18:35 Total Protein 5.8 g/dL (6.3-8.2) L 08/10/21 05:38 Albumin 2.5 g/dL (3.9-5) L 08/10/21 05:38 Albumin/Globulin Ratio 0.8 % 08/10/21 05:38 Hepatitis A IgM Ab Non-reactive (NonReactive) 08/08/21 13:55 Hep Bs Antigen Nonreactive (Negative) 08/08/21 13:55 Hep B Core IgM Ab Non-reactive (NonReactive) 08/08/21 13:55 Hepatitis C Antibody Reactive (NonReactive) A 08/08/21 13:55 Active Medications - Current Medications Current Medications: Generic Name Dose Route Start Last Admin Trade Name Freq PRN Reason Stop Dose Admin Acetaminophen 650 mg 08/07/21 22:40 Acetaminophen 325 Mg Tab PO Q4H PRN Pain MILD(1-3)/Fever >100.5/PÉREZ Albuterol 2.5 mg 08/07/21 22:48 Albuterol 2.5 Mg/3 Ml Nebu IH Q4HRT PRN Shortness Of Breath Amlodipine Besylate 5 mg 08/09/21 13:15 Amlodipine 5 Mg Tab FEEDTUBE QDAY LADAN Aspirin 81 mg 08/09/21 14:00 08/09/21 14:07 Aspirin 81 Mg Tab Chew FEEDTUBE 81 mg QDAY LADAN Administration Atorvastatin Calcium 40 mg 08/09/21 13:15 08/09/21 22:41 Atorvastatin 40 Mg Tab FEEDTUBE 40 mg QHS LADAN Administration Clonidine HCl 0.2 mg 08/09/21 13:15 08/09/21 22:41 Clonidine 0.2 Mg Tab FEEDTUBE 0.2 mg QHS LADAN Administration Clopidogrel Bisulfate 75 mg 08/09/21 13:15 Clopidogrel 75 Mg Tab FEEDTUBE QDAY LADAN Dextrose 25 ml 08/08/21 17:38 Dextrose 50% In Water (25gm) 50 Ml Syringe IV Q30MIN PRN Hypoglycemia Protocol Heparin Sodium (Porcine) 5,000 unit 08/08/21 10:00 08/09/21 22:43 Heparin 5,000 Unit/1 Ml Vial SUB-Q 5,000 unit Q12HR LADAN Administration Heparin Sodium (Porcine) 3,000 unit 08/09/21 09:40 Heparin 10,000 Units/10 Ml Vial IV TITO PRN hemodialysis Hydralazine HCl 10 mg 08/08/21 04:22 08/08/21 21:05 Hydralazine 20 Mg/1 Ml Inj IV 10 mg Q6H PRN Administration Hypertension Hydralazine HCl 50 mg 08/09/21 13:15 08/09/21 22:42 Hydralazine 25 Mg Tab FEEDTUBE 50 mg BID LADAN Administration Sodium Chloride 100 mls @ 999 mls/hr 08/08/21 13:00 Nacl 0.9% IV TITO PRN Hypotension Isosorbide Dinitrate 10 mg 08/10/21 14:00 Isosorbide Dinitrate 10 Mg Tab PO Q8H LADAN Labetalol HCl 10 mg 08/08/21 08:38 08/08/21 10:00 Labetalol 20 Mg/4 Ml Inj IV 10 mg Q4HR PRN Administration Hypertension Lansoprazole 30 mg 08/09/21 14:00 08/09/21 15:10 Lansoprazole 30 Mg Solutab FEEDTUBE Not Given QDAY LADAN Latanoprost 1 drops 08/08/21 18:00 08/09/21 22:42 Latanoprost 0.005% Ophth Soln 2.5 Ml OU Not Given QPM LADAN Metoclopramide HCl 2.5 mg 08/07/21 22:52 Metoclopramide 10 Mg/2 Ml Inj IV Q6H PRN Nausea And Vomiting Metoprolol Tartrate 25 mg 08/09/21 13:15 08/10/21 07:35 Metoprolol Tartrate 25 Mg Tab FEEDTUBE 25 mg Q8HR LADAN Administration Ondansetron HCl 4 mg 08/07/21 22:40 Ondansetron 4 Mg/2 Ml Inj IV Q3H PRN Nausea And Vomiting Sodium Chloride 10 ml 08/08/21 10:00 08/09/21 22:43 Sodium Chloride 0.9% 10 Ml Flush Syringe IV 10 ml BID LADAN Administration Sodium Chloride 10 ml 08/07/21 22:40 Sodium Chloride 0.9% 10 Ml Flush Syringe IV PRN PRN LINE FLUSH Tizanidine HCl 4 mg 08/07/21 22:35 Tizanidine Tab 4 Mg Tab PO BID PRN Muscle Spasm
--- NOTE | 2021-08-10 11:07 | Progress Note ---
Assessment and Plan Assessment and Plan Assessment and plan: 71-year-old female with history of hypertension, insulin-dependent diabetes, end-stage renal disease on hemodialysis brought in by EMS from home for evaluation of unresponsiveness and altered mental status. As per EMS patient had vascular surgery for varicose veins and was prescribed Dilaudid 2 mg every 6 hours. Patient was not responding to painful stimuli. As per EMS patient had p inpoint pupils. EMS gave the patient Narcan and patient immediately started waking up. Upon arrival in the ER patient was still obtunded but responded to 0.4 mg of Narcan. - Patient Problems # Acute metabolic encephalopathy -Probably secondary to Dilaudid and its effects on a renal failure patient -Patient is on Narcan drip -IV fluids as necessary and gently because the patient also has CHF -Ct brain is unremarkable -UDS unable to do ? Serum drug screen -EEG if possible R/O status -BRain MRI ? r/o anoxic brain injury !!! -No sign to suggest Infection , Vital stables she is afebril with slightly elevated WbC no shift # Narcotic overdose -Patient was given Dilaudid 2 mg every 6 hours after varicose vein surgery -slight response to Narcan # ESRD (end stage renal disease) Nephrology consulted Continue dialysis as per schedule # IDDM (insulin dependent diabetes mellitus) Coverage for now Resume home insulin once she is more alert Check hemoglobin A1c # Hypertension -Continue antihypertensives and adjust medications as necessary # Coronary artery disease -Continue Plavix and aspirin # Glaucoma -Continue latanoprost eyedrops # DVT prophylaxis On anticoagulation and GI prophylaxis PLAN 1- Moniter Vital sign and electrolytes 2- Consider Brain MRI if not getting better r/o Anoxic vs infectious etiology 3- EEG am, 4- hemodialysis 5- Drug screen when possible ? she is admitted by 08-07 afternoon 6- No clear indication for LP, No clear sign of infection is noted . over all prognosis is quarded Subjective Date of service: 08/10/21 Principal diagnosis: Unresponsivness Interval history: pt. status is unchanged ,slightly open eyes to stimuli not tracking not follow command no movement to stimuli BP189/75 not intubated not sedated Creat#3.8 today [place] tube for feeding and medications Objective - Vital Sign Vital Signs - 12hr 08/09/21 08/09/21 08/09/21 23:11 23:20 23:21 Temperature 98.7 F Pulse Rate 98 H 85 Pulse Rate [ From Monitor] Respiratory 12 9 L Rate Respiratory Rate [Right Lower Leg] Blood Pressure 167/73 167/73 O2 Sat by Pulse 98 99 Oximetry 08/09/21 08/09/21 08/09/21 23:31 23:36 23:41 Temperature Pulse Rate 77 74 Pulse Rate [ From Monitor] Respiratory 10 L 8 L Rate Respiratory 12 Rate [Right Lower Leg] Blood Pressure 167/73 167/73 O2 Sat by Pulse 95 98 Oximetry 08/09/21 08/09/21 08/10/21 23:51 23:53 00:01 Temperature Pulse Rate 73 77 81 Pulse Rate [ From Monitor] Respiratory 9 L 11 L 16 Rate Respiratory Rate [Right Lower Leg] Blood Pressure 167/73 167/73 118/51 O2 Sat by Pulse 96 99 100 Oximetry 08/10/21 08/10/21 08/10/21 00:11 00:21 00:31 Temperature Pulse Rate 77 78 76 Pulse Rate [ From Monitor] Respiratory 8 L 10 L 9 L Rate Respiratory Rate [Right Lower Leg] Blood Pressure 118/51 118/51 118/51 O2 Sat by Pulse 98 96 98 Oximetry 08/10/21 08/10/21 08/10/21 00:41 00:51 01:01 Temperature Pulse Rate 82 83 84 Pulse Rate [ From Monitor] Respiratory 10 L 9 L 12 Rate Respiratory Rate [Right Lower Leg] Blood Pressure 118/51 118/51 138/64 O2 Sat by Pulse 97 99 98 Oximetry 08/10/21 08/10/21 08/10/21 01:11 01:21 01:31 Temperature Pulse Rate 84 86 86 Pulse Rate [ From Monitor] Respiratory 10 L 11 L 10 L Rate Respiratory Rate [Right Lower Leg] Blood Pressure 138/64 118/51 118/51 O2 Sat by Pulse 100 99 98 Oximetry 08/10/21 08/10/21 08/10/21 01:41 01:51 02:00 Temperature Pulse Rate 85 86 88 Pulse Rate [ From Monitor] Respiratory 12 9 L 11 L Rate Respiratory Rate [Right Lower Leg] Blood Pressure 118/51 118/51 134/58 O2 Sat by Pulse 96 99 100 Oximetry 08/10/21 08/10/21 08/10/21 02:11 02:21 02:31 Temperature Pulse Rate 85 91 H 86 Pulse Rate [ From Monitor] Respiratory 10 L 13 11 L Rate Respiratory Rate [Right Lower Leg] Blood Pressure 134/58 134/58 134/58 O2 Sat by Pulse 99 98 97 Oximetry 08/10/21 08/10/21 08/10/21 02:41 02:51 03:00 Temperature Pulse Rate 96 H 83 88 Pulse Rate [ From Monitor] Respiratory 21 10 L 11 L Rate Respiratory Rate [Right Lower Leg] Blood Pressure 134/58 134/58 131/63 O2 Sat by Pulse 100 95 97 Oximetry 08/10/21 08/10/21 08/10/21 03:11 03:21 03:31 Temperature Pulse Rate 87 91 H 86 Pulse Rate [ From Monitor] Respiratory 7 L 9 L 9 L Rate Respiratory Rate [Right Lower Leg] Blood Pressure 131/63 131/63 131/63 O2 Sat by Pulse 98 99 98 Oximetry 08/10/21 08/10/21 08/10/21 03:41 03:51 04:00 Temperature 98.6 F Pulse Rate 87 87 84 Pulse Rate [ 89 From Monitor] Respiratory 11 L 10 L 7 L Rate Respiratory Rate [Right Lower Leg] Blood Pressure 131/63 131/63 144/60 O2 Sat by Pulse 100 96 97 Oximetry 08/10/21 08/10/21 08/10/21 04:11 04:21 04:31 Temperature Pulse Rate 86 90 86 Pulse Rate [ From Monitor] Respiratory 11 L 8 L 9 L Rate Respiratory Rate [Right Lower Leg] Blood Pressure 144/60 144/60 144/60 O2 Sat by Pulse 99 96 98 Oximetry 08/10/21 08/10/21 08/10/21 04:41 04:51 05:01 Temperature Pulse Rate 85 90 89 Pulse Rate [ From Monitor] Respiratory 10 L 11 L 8 L Rate Respiratory Rate [Right Lower Leg] Blood Pressure 144/60 144/60 141/69 O2 Sat by Pulse 100 98 100 Oximetry 08/10/21 08/10/21 08/10/21 05:11 05:21 05:31 Temperature Pulse Rate 86 100 H 88 Pulse Rate [ From Monitor] Respiratory 11 L 20 10 L Rate Respiratory Rate [Right Lower Leg] Blood Pressure 141/69 141/69 141/69 O2 Sat by Pulse 98 99 97 Oximetry 08/10/21 08/10/21 08/10/21 05:41 05:51 06:01 Temperature Pulse Rate 87 86 86 Pulse Rate [ From Monitor] Respiratory 12 8 L 10 L Rate Respiratory Rate [Right Lower Leg] Blood Pressure 141/69 141/69 175/68 O2 Sat by Pulse 99 97 99 Oximetry 08/10/21 08/10/21 08/10/21 06:11 06:21 06:31 Temperature Pulse Rate 92 H 90 88 Pulse Rate [ From Monitor] Respiratory 18 11 L 10 L Rate Respiratory Rate [Right Lower Leg] Blood Pressure 175/68 175/68 175/68 O2 Sat by Pulse 100 97 98 Oximetry 08/10/21 08/10/21 08/10/21 06:41 06:51 07:35 Temperature Pulse Rate 89 84 86 Pulse Rate [ From Monitor] Respiratory 9 L 13 Rate Respiratory Rate [Right Lower Leg] Blood Pressure 175/68 175/68 176/71 O2 Sat by Pulse 100 100 Oximetry 08/10/21 08/10/21 08/10/21 08:00 09:31 09:32 Temperature 98.3 F Pulse Rate 85 85 Pulse Rate [ From Monitor] Respiratory Rate Respiratory Rate [Right Lower Leg] Blood Pressure 189/75 189/75 O2 Sat by Pulse Oximetry - General Apperance Constitutional: comfortable - EENT EENT: PERRL, mucous membranes moist - Respiratory Respiratory: chest non-tender, lungs clear, rhonchi - Cardiovascular Cardiovascular: regular rate, normal S1, normal S2 Extremities: no peripheral edema bilat, no clubbing, cyanosis - Gastrointestinal Gastrointestinal: normoactive bowel sounds - Integumentary Integumentary: normal - Neurologic Cranial nerve examination: PERRL, intact, other (no facial asymmetry , EOMI , pupils reactive at 3mm ,Corneal sluggish bilateral , gag is intact) Speech examination: other (no speech out put, no movment to sternal rub or noxious stimulation only slight grimsing in face with no significant limb movment.) - Laboratory Findings CBC and BMP: 08/10/21 05:38 08/10/21 05:38 Abnormal Lab Findings: Abnormal Labs 08/07/21 08/07/21 08/08/21 14:41 14:41 05:11 WBC 11.3 H 13.8 H RBC 2.97 L 3.02 L Hgb 9.6 L 9.4 L Hct 30.0 L MCV 102 H 99 H RDW 19.1 H 19.5 H Plt Count 449 H Lymph % (Auto) 7.6 L Lymph # (Auto) 1.0 L Seg Neutrophils % 74.3 H 87.7 H Seg Neuts % (Manual) 90.0 H Seg Neutrophils # 8.4 H 11.1 H Seg Neutrophils # Man 12.4 H Lymphocytes # (Manual) 0.0 L Monocytes # (Manual) 1.0 H Sodium 136 L Potassium Carbon Dioxide 17 L BUN 22 H Creatinine 6.6 H Glucose 103 H POC Glucose Calcium 8.0 L Magnesium Alkaline Phosphatase Ammonia Total Protein Albumin Hepatitis C Antibody 08/08/21 08/08/21 08/08/21 05:11 13:55 21:26 WBC RBC Hgb Hct MCV RDW Plt Count Lymph % (Auto) Lymph # (Auto) Seg Neutrophils % Seg Neuts % (Manual) Seg Neutrophils # Seg Neutrophils # Man Lymphocytes # (Manual) Monocytes # (Manual) Sodium Potassium 5.3 H Carbon Dioxide 16 L BUN 25 H Creatinine 6.6 H Glucose POC Glucose 127 H Calcium 7.8 L Magnesium Alkaline Phosphatase 159 H Ammonia Total Protein 6.2 L Albumin 2.8 L Hepatitis C Antibody Reactive A 08/09/21 08/09/21 08/09/21 03:58 04:14 04:14 WBC 11.8 H RBC 2.86 L Hgb 9.2 L Hct 28.6 L MCV 100 H RDW 19.4 H Plt Count Lymph % (Auto) Lymph # (Auto) Seg Neutrophils % Seg Neuts % (Manual) Seg Neutrophils # Seg Neutrophils # Man Lymphocytes # (Manual) Monocytes # (Manual) Sodium Potassium Carbon Dioxide BUN Creatinine 4.4 H Glucose 142 H POC Glucose 136 H Calcium 7.9 L Magnesium 1.60 L Alkaline Phosphatase Ammonia Total Protein Albumin Hepatitis C Antibody 08/09/21 08/09/21 08/10/21 06:31 18:35 05:38 WBC 14.0 H RBC 2.88 L Hgb 9.1 L Hct 28.8 L MCV 100 H RDW 19.1 H Plt Count Lymph % (Auto) 7.2 L Lymph # (Auto) 1.0 L Seg Neutrophils % 86.3 H Seg Neuts % (Manual) Seg Neutrophils # 12.1 H Seg Neutrophils # Man Lymphocytes # (Manual) Monocytes # (Manual) Sodium Potassium Carbon Dioxide BUN Creatinine Glucose POC Glucose 140 H Calcium Magnesium Alkaline Phosphatase Ammonia 20.0 L Total Protein Albumin Hepatitis C Antibody 08/10/21 05:38 WBC RBC Hgb Hct MCV RDW Plt Count Lymph % (Auto) Lymph # (Auto) Seg Neutrophils % Seg Neuts % (Manual) Seg Neutrophils # Seg Neutrophils # Man Lymphocytes # (Manual) Monocytes # (Manual) Sodium Potassium Carbon Dioxide BUN 38 H Creatinine 3.8 H Glucose POC Glucose Calcium 8.2 L Magnesium Alkaline Phosphatase 142 H Ammonia Total Protein 5.8 L Albumin 2.5 L Hepatitis C Antibody
--- NOTE | 2021-08-10 11:23 | Progress Note ---
Assessment and Plan 70 y/o with ESRD on HD admitted with altered mental status, thought secondary to narcotic overdose Unsure of why patient still groggy No objection to repeat head imaging as suggested by Neurology No pulmonary issues Will sign off. Subjective Date of service: 08/10/21 Principal diagnosis: Unresponsivness Interval history: No acute events. Will open eyes to painful stimuli but won't speak. Vitals stable. Neurology has evaluated. Objective - Constitutional Vitals: Vital Signs - 12hr 08/09/21 08/09/21 08/09/21 23:31 23:36 23:41 Temperature Pulse Rate 77 74 Pulse Rate [ From Monitor] Respiratory 10 L 8 L Rate Respiratory 12 Rate [Right Lower Leg] Blood Pressure 167/73 167/73 O2 Sat by Pulse 95 98 Oximetry 08/09/21 08/09/21 08/10/21 23:51 23:53 00:01 Temperature Pulse Rate 73 77 81 Pulse Rate [ From Monitor] Respiratory 9 L 11 L 16 Rate Respiratory Rate [Right Lower Leg] Blood Pressure 167/73 167/73 118/51 O2 Sat by Pulse 96 99 100 Oximetry 08/10/21 08/10/21 08/10/21 00:11 00:21 00:31 Temperature Pulse Rate 77 78 76 Pulse Rate [ From Monitor] Respiratory 8 L 10 L 9 L Rate Respiratory Rate [Right Lower Leg] Blood Pressure 118/51 118/51 118/51 O2 Sat by Pulse 98 96 98 Oximetry 08/10/21 08/10/21 08/10/21 00:41 00:51 01:01 Temperature Pulse Rate 82 83 84 Pulse Rate [ From Monitor] Respiratory 10 L 9 L 12 Rate Respiratory Rate [Right Lower Leg] Blood Pressure 118/51 118/51 138/64 O2 Sat by Pulse 97 99 98 Oximetry 08/10/21 08/10/21 08/10/21 01:11 01:21 01:31 Temperature Pulse Rate 84 86 86 Pulse Rate [ From Monitor] Respiratory 10 L 11 L 10 L Rate Respiratory Rate [Right Lower Leg] Blood Pressure 138/64 118/51 118/51 O2 Sat by Pulse 100 99 98 Oximetry 08/10/21 08/10/21 08/10/21 01:41 01:51 02:00 Temperature Pulse Rate 85 86 88 Pulse Rate [ From Monitor] Respiratory 12 9 L 11 L Rate Respiratory Rate [Right Lower Leg] Blood Pressure 118/51 118/51 134/58 O2 Sat by Pulse 96 99 100 Oximetry 08/10/21 08/10/21 08/10/21 02:11 02:21 02:31 Temperature Pulse Rate 85 91 H 86 Pulse Rate [ From Monitor] Respiratory 10 L 13 11 L Rate Respiratory Rate [Right Lower Leg] Blood Pressure 134/58 134/58 134/58 O2 Sat by Pulse 99 98 97 Oximetry 08/10/21 08/10/21 08/10/21 02:41 02:51 03:00 Temperature Pulse Rate 96 H 83 88 Pulse Rate [ From Monitor] Respiratory 21 10 L 11 L Rate Respiratory Rate [Right Lower Leg] Blood Pressure 134/58 134/58 131/63 O2 Sat by Pulse 100 95 97 Oximetry 08/10/21 08/10/21 08/10/21 03:11 03:21 03:31 Temperature Pulse Rate 87 91 H 86 Pulse Rate [ From Monitor] Respiratory 7 L 9 L 9 L Rate Respiratory Rate [Right Lower Leg] Blood Pressure 131/63 131/63 131/63 O2 Sat by Pulse 98 99 98 Oximetry 08/10/21 08/10/21 08/10/21 03:41 03:51 04:00 Temperature 98.6 F Pulse Rate 87 87 84 Pulse Rate [ 89 From Monitor] Respiratory 11 L 10 L 7 L Rate Respiratory Rate [Right Lower Leg] Blood Pressure 131/63 131/63 144/60 O2 Sat by Pulse 100 96 97 Oximetry 08/10/21 08/10/21 08/10/21 04:11 04:21 04:31 Temperature Pulse Rate 86 90 86 Pulse Rate [ From Monitor] Respiratory 11 L 8 L 9 L Rate Respiratory Rate [Right Lower Leg] Blood Pressure 144/60 144/60 144/60 O2 Sat by Pulse 99 96 98 Oximetry 08/10/21 08/10/21 08/10/21 04:41 04:51 05:01 Temperature Pulse Rate 85 90 89 Pulse Rate [ From Monitor] Respiratory 10 L 11 L 8 L Rate Respiratory Rate [Right Lower Leg] Blood Pressure 144/60 144/60 141/69 O2 Sat by Pulse 100 98 100 Oximetry 08/10/21 08/10/21 08/10/21 05:11 05:21 05:31 Temperature Pulse Rate 86 100 H 88 Pulse Rate [ From Monitor] Respiratory 11 L 20 10 L Rate Respiratory Rate [Right Lower Leg] Blood Pressure 141/69 141/69 141/69 O2 Sat by Pulse 98 99 97 Oximetry 08/10/21 08/10/21 08/10/21 05:41 05:51 06:01 Temperature Pulse Rate 87 86 86 Pulse Rate [ From Monitor] Respiratory 12 8 L 10 L Rate Respiratory Rate [Right Lower Leg] Blood Pressure 141/69 141/69 175/68 O2 Sat by Pulse 99 97 99 Oximetry 08/10/21 08/10/21 08/10/21 06:11 06:21 06:31 Temperature Pulse Rate 92 H 90 88 Pulse Rate [ From Monitor] Respiratory 18 11 L 10 L Rate Respiratory Rate [Right Lower Leg] Blood Pressure 175/68 175/68 175/68 O2 Sat by Pulse 100 97 98 Oximetry 08/10/21 08/10/21 08/10/21 06:41 06:51 07:35 Temperature Pulse Rate 89 84 86 Pulse Rate [ From Monitor] Respiratory 9 L 13 Rate Respiratory Rate [Right Lower Leg] Blood Pressure 175/68 175/68 176/71 O2 Sat by Pulse 100 100 Oximetry 08/10/21 08/10/21 08/10/21 08:00 09:31 09:32 Temperature 98.3 F Pulse Rate 85 85 Pulse Rate [ From Monitor] Respiratory Rate Respiratory Rate [Right Lower Leg] Blood Pressure 189/75 189/75 O2 Sat by Pulse Oximetry - Labs CBC & Chem 7: 08/10/21 05:38 08/10/21 05:38 Labs: Abnormal lab results 08/09/21 08/10/21 08/10/21 Range/Units 18:35 05:38 05:38 WBC 14.0 H (4.5-11.0) K/mm3 RBC 2.88 L (3.65-5.03) M/mm3 Hgb 9.1 L (10.1-14.3) gm/dl Hct 28.8 L (30.3-42.9) % MCV 100 H (79-97) fl RDW 19.1 H (13.2-15.2) % Lymph % (Auto) 7.2 L (13.4-35.0) % Lymph # (Auto) 1.0 L (1.2-5.4) K/mm3 Seg Neutrophils % 86.3 H (40.0-70.0) % Seg Neutrophils # 12.1 H (1.8-7.7) K/mm3 BUN 38 H (7-17) mg/dL Creatinine 3.8 H (0.6-1.2) mg/dL Calcium 8.2 L (8.4-10.2) mg/dL Alkaline Phosphatase 142 H (35-129) units/L Ammonia 20.0 L (25-60) umol/L Total Protein 5.8 L (6.3-8.2) g/dL Albumin 2.5 L (3.9-5) g/dL Medications & Allergies - Medications Allergies/Adverse Reactions: Allergies Penicillins Allergy (Verified 08/30/18 08:25) Itching Home Medications: Home Medications Medication Instructions Recorded Confirmed Last Taken Type Albuterol Sulfate [Ventolin Hfa] 2 puff IH Q6H PRN 08/30/18 05/02/21 10/08/18 History Amlodipine Besylate [Norvasc] 5 mg PO QDAY 08/30/18 05/02/21 10/08/18 History HYDROcodone/APAP 7.5-325 [[place] 1 each PO DAILY PRN 08/30/18 08/08/21 10/06/18 History 7.5-325 mg TAB] Hydralazine HCl 50 mg PO BID 08/30/18 08/08/21 10/08/18 History Latanoprost 0.005% 1 drop OU QPM 08/30/18 08/08/21 10/08/18 History tiZANidine [Zanaflex 4mg TAB] 4 mg PO DAILY PRN 08/30/18 08/08/21 10/08/18 History Insulin Glargine [Lantus VIAL] 25 units SUB-Q QHS #1 vial 10/06/18 05/02/21 10/08/18 Rx Insulin Lispro [HumaLOG VIAL] 0 units SQ AC #1 vial 10/06/18 05/02/21 10/08/18 Rx Aspirin EC [Halfprin EC] 81 mg PO QDAY #90 tablet 05/02/21 08/08/21 Unknown Rx AtorvaSTATin [Lipitor] 40 mg PO QHS #90 tablet 05/02/21 08/08/21 Unknown Rx Clopidogrel [Plavix] 75 mg PO QDAY #90 tablet 05/02/21 08/08/21 Unknown Rx ISOSORBIDE MONOnitrate [Imdur ER] 30 mg PO QDAY #90 tablet 05/02/21 Unknown Rx AtorvaSTATin [Lipitor] 40 mg PO QHS 08/08/21 08/08/21 Unknown History Cinacalcet [Sensipar] 30 mg PO QDAY 08/08/21 08/08/21 Unknown History Furosemide [Lasix TAB] 80 mg PO 08/08/21 Unknown History Furosemide [Lasix TAB] 80 mg PO QDAY 08/08/21 08/08/21 Unknown History HYDROmorphone [Dilaudid] 2 mg PO Q8H PRN 08/08/21 08/08/21 Unknown History Metoprolol Succinate [Toprol Xl] 25 mg PO DAILY 08/08/21 08/08/21 Unknown History Nortriptyline [Pamelor] 25 mg PO DAILY 08/08/21 08/08/21 Unknown History calcitrioL [Rocaltrol] 0.5 mcg PO QDAY 08/08/21 08/08/21 Unknown History calcitrioL [Rocaltrol] 0.5 mcg PO QDAY 08/08/21 08/08/21 Unknown History metOLazone [Zaroxolyn] 5 mg PO QDAY 08/08/21 08/08/21 Unknown History Active Medications: Generic Name Dose Route Start Last Admin Trade Name Freq PRN Reason Stop Dose Admin Acetaminophen 650 mg 08/07/21 22:40 Acetaminophen 325 Mg Tab PO Q4H PRN Pain MILD(1-3)/Fever >100.5/PÉREZ Albuterol 2.5 mg 08/07/21 22:48 Albuterol 2.5 Mg/3 Ml Nebu IH Q4HRT PRN Shortness Of Breath Amlodipine Besylate 5 mg 08/09/21 13:15 08/10/21 09:31 Amlodipine 5 Mg Tab FEEDTUBE 5 mg QDAY LADAN Administration Aspirin 81 mg 08/09/21 14:00 08/10/21 09:31 Aspirin 81 Mg Tab Chew FEEDTUBE 81 mg QDAY LADNA Administration Atorvastatin Calcium 40 mg 08/09/21 13:15 08/09/21 22:41 Atorvastatin 40 Mg Tab FEEDTUBE 40 mg QHS LADAN Administration Clonidine HCl 0.2 mg 08/09/21 13:15 08/09/21 22:41 Clonidine 0.2 Mg Tab FEEDTUBE 0.2 mg QHS LADAN Administration Clopidogrel Bisulfate 75 mg 08/09/21 13:15 08/10/21 09:33 Clopidogrel 75 Mg Tab FEEDTUBE 75 mg QDAY LADAN Administration Dextrose 25 ml 08/08/21 17:38 Dextrose 50% In Water (25gm) 50 Ml Syringe IV Q30MIN PRN Hypoglycemia Protocol Heparin Sodium (Porcine) 5,000 unit 08/08/21 10:00 08/10/21 09:32 Heparin 5,000 Unit/1 Ml Vial SUB-Q 5,000 unit Q12HR LADAN Administration Heparin Sodium (Porcine) 3,000 unit 08/09/21 09:40 Heparin 10,000 Units/10 Ml Vial IV TITO PRN hemodialysis Hydralazine HCl 10 mg 08/08/21 04:22 08/08/21 21:05 Hydralazine 20 Mg/1 Ml Inj IV 10 mg Q6H PRN Administration Hypertension Hydralazine HCl 50 mg 08/09/21 13:15 08/10/21 09:32 Hydralazine 25 Mg Tab FEEDTUBE 50 mg BID LADAN Administration Sodium Chloride 100 mls @ 999 mls/hr 08/08/21 13:00 Nacl 0.9% IV TITO PRN Hypotension Isosorbide Dinitrate 10 mg 08/10/21 14:00 Isosorbide Dinitrate 10 Mg Tab PO Q8H LADAN Labetalol HCl 10 mg 08/08/21 08:38 08/08/21 10:00 Labetalol 20 Mg/4 Ml Inj IV 10 mg Q4HR PRN Administration Hypertension Lansoprazole 30 mg 08/09/21 14:00 08/10/21 09:33 Lansoprazole 30 Mg Solutab FEEDTUBE 30 mg QDAY LADAN Administration Latanoprost 1 drops 08/08/21 18:00 08/09/21 22:42 Latanoprost 0.005% Ophth Soln 2.5 Ml OU Not Given QPM LADAN Metoclopramide HCl 2.5 mg 08/07/21 22:52 Metoclopramide 10 Mg/2 Ml Inj IV Q6H PRN Nausea And Vomiting Metoprolol Tartrate 25 mg 08/09/21 13:15 08/10/21 07:35 Metoprolol Tartrate 25 Mg Tab FEEDTUBE 25 mg Q8HR LADAN Administration Ondansetron HCl 4 mg 08/07/21 22:40 Ondansetron 4 Mg/2 Ml Inj IV Q3H PRN Nausea And Vomiting Sodium Chloride 10 ml 08/08/21 10:00 08/10/21 09:34 Sodium Chloride 0.9% 10 Ml Flush Syringe IV 10 ml BID LADAN Administration Sodium Chloride 10 ml 08/07/21 22:40 Sodium Chloride 0.9% 10 Ml Flush Syringe IV PRN PRN LINE FLUSH Tizanidine HCl 4 mg 08/07/21 22:35 Tizanidine Tab 4 Mg Tab PO BID PRN Muscle Spasm HEART Score - HEART Score Age: > 65 Risk factors: > 3 risk factors or hx of atherosclerotic disease Troponin: < normal limit - Critical Actions Critical Actions: 0-3 pts:0.9-1.7%risk of adverse cardiac event.Candidate for discharge
[2021-08-10 13:33] LABS: Amphetamine Screen,Urine Negative; Cannabinoid Screen,Urine Negative; Cocaine Screen,Urine Negative; Methadone Screen,Urine Negative; Opiate Screen,Urine Negative
[2021-08-10 13:35] LABS: Bacteria,Urine 1+ /HPF (Negative); Bilirubin,Urine NEG (Negative); Blood,Urine SM (Negative); Mucus,Urine FEW /HPF; Urobilinogen,Urine < 2.0 mg/dL (<2.0)
[2021-08-10 13:39] LABS: Color,Urine Yellow (Yellow)
[2021-08-10] MEDS ORDERED: ISOSORBIDE DINITRATE 10 MG TAB PO SCH (14:00)
[2021-08-10] MEDS: ISOSORBIDE DINITRATE 10 MG TAB PO SCH ×2 (14:02→22:34)
[2021-08-10 14:15] LABS: Benzodiazepines Screen,Urine Positive
--- NOTE | 2021-08-10 17:29 | Progress Note ---
Assessment and Plan 1. ESRD: Patient is on maintenance HD, MWF schedule. Per she was switched to HD about 2 months ago 2/2 Calciphylaxis. Meds dosage based on GFR. Last outpatient HD 08/04. Hemodialysis: 08/08, 08/09. 2. FEN: Hyperkalemia, s/p HD. Anion-gap metabolic acidosis, s/p HD. Monitor lytes and volume status. 3. Acute metabolic encephalopathy, POA: 2/2 narcotic OD. S/p Narcan drip. CT head negative. Seen by Neuro. Monitor. 4. CAD s/p stent. Plavix, Statin, Aspirin, BB. Echo; EF 60%, LVH. 5. Anemia: Epogen with HD. 6. HTN. 7. Type 2 DM. Subjective: Patient was seen and examined at the bedside. Examination: General appearance: well-developed, well-nourished, appears stated age, not in distress HEENT: ATNC, pupils equal Neck: trachea midline Respiratory: Clear to Auscultation Cardiology: regular, S1S2, no murmur Gastrointestinal: normoactive bowel sounds, not tender, PD catheter noted Integumentary: b/l leg dressing noted Neurologic: lethargic Ext: no edema Hemodialysis access: R IJ tunnel catheter Subjective Date of service: 08/10/21 Principal diagnosis: Unresponsivness Objective - Vital Signs Vital signs: Vital Signs - 12hr 08/10/21 08/10/21 08/10/21 05:31 05:41 05:51 Temperature Pulse Rate 88 87 86 Pulse Rate [ From Monitor] Pulse Rate [ Right Dorsalis Pedis] Respiratory 10 L 12 8 L Rate Respiratory Rate [Right Lower Leg] Blood Pressure 141/69 141/69 141/69 O2 Sat by Pulse 97 99 97 Oximetry 08/10/21 08/10/21 08/10/21 06:01 06:11 06:21 Temperature Pulse Rate 86 92 H 90 Pulse Rate [ From Monitor] Pulse Rate [ Right Dorsalis Pedis] Respiratory 10 L 18 11 L Rate Respiratory Rate [Right Lower Leg] Blood Pressure 175/68 175/68 175/68 O2 Sat by Pulse 99 100 97 Oximetry 08/10/21 08/10/21 08/10/21 06:31 06:41 06:51 Temperature Pulse Rate 88 89 84 Pulse Rate [ From Monitor] Pulse Rate [ Right Dorsalis Pedis] Respiratory 10 L 9 L 13 Rate Respiratory Rate [Right Lower Leg] Blood Pressure 175/68 175/68 175/68 O2 Sat by Pulse 98 100 100 Oximetry 08/10/21 08/10/21 08/10/21 07:35 08:00 08:11 Temperature 98.3 F Pulse Rate 86 82 86 Pulse Rate [ 89 From Monitor] Pulse Rate [ 82 Right Dorsalis Pedis] Respiratory 10 L 18 Rate Respiratory Rate [Right Lower Leg] Blood Pressure 176/71 174/60 174/60 O2 Sat by Pulse 98 100 Oximetry 08/10/21 08/10/21 08/10/21 08:21 08:31 08:41 Temperature Pulse Rate 81 85 76 Pulse Rate [ From Monitor] Pulse Rate [ Right Dorsalis Pedis] Respiratory 10 L 18 10 L Rate Respiratory Rate [Right Lower Leg] Blood Pressure 174/60 174/60 174/60 O2 Sat by Pulse 99 100 100 Oximetry 08/10/21 08/10/21 08/10/21 08:51 09:01 09:11 Temperature Pulse Rate 75 83 81 Pulse Rate [ From Monitor] Pulse Rate [ Right Dorsalis Pedis] Respiratory 7 L 12 12 Rate Respiratory Rate [Right Lower Leg] Blood Pressure 174/60 189/75 189/75 O2 Sat by Pulse 99 99 100 Oximetry 08/10/21 08/10/21 08/10/21 09:21 09:31 09:32 Temperature Pulse Rate 76 82 85 Pulse Rate [ From Monitor] Pulse Rate [ Right Dorsalis Pedis] Respiratory 8 L 16 Rate Respiratory Rate [Right Lower Leg] Blood Pressure 189/75 189/75 189/75 O2 Sat by Pulse 98 99 Oximetry 08/10/21 08/10/21 08/10/21 09:41 09:51 10:00 Temperature Pulse Rate 80 79 Pulse Rate [ From Monitor] Pulse Rate [ Right Dorsalis Pedis] Respiratory 10 L 11 L Rate Respiratory 18 Rate [Right Lower Leg] Blood Pressure 189/75 193/84 O2 Sat by Pulse 98 98 Oximetry 08/10/21 08/10/21 08/10/21 10:01 10:11 10:21 Temperature Pulse Rate 73 78 77 Pulse Rate [ From Monitor] Pulse Rate [ Right Dorsalis Pedis] Respiratory 8 L 11 L 11 L Rate Respiratory Rate [Right Lower Leg] Blood Pressure 148/66 148/66 148/66 O2 Sat by Pulse 98 97 99 Oximetry 08/10/21 08/10/21 08/10/21 10:31 10:41 10:51 Temperature Pulse Rate 80 78 75 Pulse Rate [ From Monitor] Pulse Rate [ Right Dorsalis Pedis] Respiratory 16 14 13 Rate Respiratory Rate [Right Lower Leg] Blood Pressure 148/66 148/66 148/66 O2 Sat by Pulse 98 98 98 Oximetry 08/10/21 08/10/21 08/10/21 11:00 11:11 11:21 Temperature Pulse Rate 75 75 85 Pulse Rate [ From Monitor] Pulse Rate [ Right Dorsalis Pedis] Respiratory 8 L 10 L 17 Rate Respiratory Rate [Right Lower Leg] Blood Pressure 138/56 138/56 138/56 O2 Sat by Pulse 97 99 99 Oximetry 08/10/21 08/10/21 08/10/21 11:31 11:40 11:51 Temperature Pulse Rate 76 75 74 Pulse Rate [ From Monitor] Pulse Rate [ Right Dorsalis Pedis] Respiratory 7 L 13 9 L Rate Respiratory Rate [Right Lower Leg] Blood Pressure 138/56 189/75 138/56 O2 Sat by Pulse 98 98 96 Oximetry 08/10/21 08/10/21 08/10/21 12:00 12:01 12:11 Temperature 97.5 F L Pulse Rate 84 80 83 Pulse Rate [ From Monitor] Pulse Rate [ Right Dorsalis Pedis] Respiratory 14 15 Rate Respiratory Rate [Right Lower Leg] Blood Pressure 159/72 138/56 O2 Sat by Pulse 98 96 Oximetry 08/10/21 08/10/21 08/10/21 12:21 12:31 12:41 Temperature Pulse Rate 83 73 75 Pulse Rate [ From Monitor] Pulse Rate [ Right Dorsalis Pedis] Respiratory 14 7 L 9 L Rate Respiratory Rate [Right Lower Leg] Blood Pressure 138/56 138/56 138/56 O2 Sat by Pulse 97 97 99 Oximetry 08/10/21 08/10/21 08/10/21 12:51 13:00 13:11 Temperature Pulse Rate 75 75 85 Pulse Rate [ From Monitor] Pulse Rate [ Right Dorsalis Pedis] Respiratory 9 L 8 L 8 L Rate Respiratory Rate [Right Lower Leg] Blood Pressure 138/56 129/58 129/58 O2 Sat by Pulse 99 97 98 Oximetry 08/10/21 08/10/21 08/10/21 13:21 13:31 13:41 Temperature Pulse Rate 78 76 76 Pulse Rate [ From Monitor] Pulse Rate [ Right Dorsalis Pedis] Respiratory 10 L 9 L 7 L Rate Respiratory Rate [Right Lower Leg] Blood Pressure 129/58 129/58 129/58 O2 Sat by Pulse 100 98 99 Oximetry 08/10/21 08/10/21 08/10/21 13:50 14:01 14:02 Temperature Pulse Rate 80 83 81 Pulse Rate [ From Monitor] Pulse Rate [ Right Dorsalis Pedis] Respiratory 11 L 12 Rate Respiratory Rate [Right Lower Leg] Blood Pressure 129/58 119/68 119/68 O2 Sat by Pulse 98 99 Oximetry 08/10/21 08/10/21 08/10/21 14:11 14:21 14:31 Temperature Pulse Rate 84 75 74 Pulse Rate [ From Monitor] Pulse Rate [ Right Dorsalis Pedis] Respiratory 12 10 L 9 L Rate Respiratory Rate [Right Lower Leg] Blood Pressure 129/58 129/58 129/58 O2 Sat by Pulse 99 100 99 Oximetry 08/10/21 08/10/21 08/10/21 14:41 14:51 15:01 Temperature Pulse Rate 74 72 81 Pulse Rate [ From Monitor] Pulse Rate [ Right Dorsalis Pedis] Respiratory 8 L 10 L 12 Rate Respiratory Rate [Right Lower Leg] Blood Pressure 129/58 129/58 159/70 O2 Sat by Pulse 96 98 100 Oximetry 08/10/21 08/10/21 08/10/21 15:11 15:21 15:31 Temperature Pulse Rate 73 68 73 Pulse Rate [ From Monitor] Pulse Rate [ Right Dorsalis Pedis] Respiratory 9 L 10 L 10 L Rate Respiratory Rate [Right Lower Leg] Blood Pressure 159/70 119/68 119/68 O2 Sat by Pulse 100 97 100 Oximetry 08/10/21 08/10/21 08/10/21 15:41 15:51 16:00 Temperature Pulse Rate 78 83 75 Pulse Rate [ From Monitor] Pulse Rate [ Right Dorsalis Pedis] Respiratory 11 L 14 10 L Rate Respiratory Rate [Right Lower Leg] Blood Pressure 119/68 159/70 169/70 O2 Sat by Pulse 97 99 100 Oximetry 08/10/21 16:11 Temperature Pulse Rate 78 Pulse Rate [ From Monitor] Pulse Rate [ Right Dorsalis Pedis] Respiratory 12 Rate Respiratory Rate [Right Lower Leg] Blood Pressure 169/70 O2 Sat by Pulse 99 Oximetry - Lab 08/11/21 04:30 08/11/21 04:30 Most recent lab results Calcium 8.2 mg/dL (8.4-10.2) L 08/10/21 05:38 Phosphorus 4.20 mg/dL (2.5-4.5) 08/09/21 04:14 Magnesium 2.10 mg/dL (1.7-2.3) 08/10/21 05:38 Medications & Allergies - Medications Allergies/Adverse Reactions: Allergies Penicillins Allergy (Verified 08/30/18 08:25) Itching Home Medications: Home Medications Medication Instructions Recorded Confirmed Last Taken Type Albuterol Sulfate [Ventolin Hfa] 2 puff IH Q6H PRN 08/30/18 05/02/21 10/08/18 History Amlodipine Besylate [Norvasc] 5 mg PO QDAY 08/30/18 05/02/21 10/08/18 History HYDROcodone/APAP 7.5-325 [[place] 1 each PO DAILY PRN 08/30/18 08/08/21 10/06/18 History 7.5-325 mg TAB] Hydralazine HCl 50 mg PO BID 08/30/18 08/08/21 10/08/18 History Latanoprost 0.005% 1 drop OU QPM 08/30/18 08/08/21 10/08/18 History tiZANidine [Zanaflex 4mg TAB] 4 mg PO DAILY PRN 08/30/18 08/08/21 10/08/18 History Insulin Glargine [Lantus VIAL] 25 units SUB-Q QHS #1 vial 10/06/18 05/02/21 10/08/18 Rx Insulin Lispro [HumaLOG VIAL] 0 units SQ AC #1 vial 10/06/18 05/02/21 10/08/18 Rx Aspirin EC [Halfprin EC] 81 mg PO QDAY #90 tablet 05/02/21 08/08/21 Unknown Rx AtorvaSTATin [Lipitor] 40 mg PO QHS #90 tablet 05/02/21 08/08/21 Unknown Rx Clopidogrel [Plavix] 75 mg PO QDAY #90 tablet 05/02/21 08/08/21 Unknown Rx ISOSORBIDE MONOnitrate [Imdur ER] 30 mg PO QDAY #90 tablet 05/02/21 Unknown Rx AtorvaSTATin [Lipitor] 40 mg PO QHS 08/08/21 08/08/21 Unknown History Cinacalcet [Sensipar] 30 mg PO QDAY 08/08/21 08/08/21 Unknown History Furosemide [Lasix TAB] 80 mg PO 08/08/21 Unknown History Furosemide [Lasix TAB] 80 mg PO QDAY 08/08/21 08/08/21 Unknown History HYDROmorphone [Dilaudid] 2 mg PO Q8H PRN 08/08/21 08/08/21 Unknown History Metoprolol Succinate [Toprol Xl] 25 mg PO DAILY 08/08/21 08/08/21 Unknown History Nortriptyline [Pamelor] 25 mg PO DAILY 08/08/21 08/08/21 Unknown History calcitrioL [Rocaltrol] 0.5 mcg PO QDAY 08/08/21 08/08/21 Unknown History calcitrioL [Rocaltrol] 0.5 mcg PO QDAY 08/08/21 08/08/21 Unknown History metOLazone [Zaroxolyn] 5 mg PO QDAY 08/08/21 08/08/21 Unknown History Active Medications: Generic Name Dose Route Start Last Admin Trade Name Freq PRN Reason Stop Dose Admin Acetaminophen 650 mg 08/07/21 22:40 Acetaminophen 325 Mg Tab PO Q4H PRN Pain MILD(1-3)/Fever >100.5/PÉREZ Albuterol 2.5 mg 08/07/21 22:48 Albuterol 2.5 Mg/3 Ml Nebu IH Q4HRT PRN Shortness Of Breath Amlodipine Besylate 5 mg 08/09/21 13:15 08/10/21 09:31 Amlodipine 5 Mg Tab FEEDTUBE 5 mg QDAY LADAN Administration Aspirin 81 mg 08/09/21 14:00 08/10/21 09:31 Aspirin 81 Mg Tab Chew FEEDTUBE 81 mg QDAY LADAN Administration Atorvastatin Calcium 40 mg 08/09/21 13:15 08/09/21 22:41 Atorvastatin 40 Mg Tab FEEDTUBE 40 mg QHS LADAN Administration Clonidine HCl 0.2 mg 08/09/21 13:15 08/09/21 22:41 Clonidine 0.2 Mg Tab FEEDTUBE 0.2 mg QHS LADAN Administration Clopidogrel Bisulfate 75 mg 08/09/21 13:15 08/10/21 09:33 Clopidogrel 75 Mg Tab FEEDTUBE 75 mg QDAY LADAN Administration Dextrose 25 ml 08/08/21 17:38 Dextrose 50% In Water (25gm) 50 Ml Syringe IV Q30MIN PRN Hypoglycemia Protocol Heparin Sodium (Porcine) 5,000 unit 08/08/21 10:00 08/10/21 09:32 Heparin 5,000 Unit/1 Ml Vial SUB-Q 5,000 unit Q12HR LADAN Administration Heparin Sodium (Porcine) 3,000 unit 08/09/21 09:40 Heparin 10,000 Units/10 Ml Vial IV TITO PRN hemodialysis Hydralazine HCl 10 mg 08/08/21 04:22 08/08/21 21:05 Hydralazine 20 Mg/1 Ml Inj IV 10 mg Q6H PRN Administration Hypertension Hydralazine HCl 50 mg 08/09/21 13:15 08/10/21 09:32 Hydralazine 25 Mg Tab FEEDTUBE 50 mg BID LADAN Administration Sodium Chloride 100 mls @ 999 mls/hr 08/08/21 13:00 Nacl 0.9% IV TITO PRN Hypotension Isosorbide Dinitrate 10 mg 08/10/21 14:00 08/10/21 14:02 Isosorbide Dinitrate 10 Mg Tab PO 10 mg Q8H LADAN Administration Labetalol HCl 10 mg 08/08/21 08:38 08/08/21 10:00 Labetalol 20 Mg/4 Ml Inj IV 10 mg Q4HR PRN Administration Hypertension Lansoprazole 30 mg 08/09/21 14:00 08/10/21 09:33 Lansoprazole 30 Mg Solutab FEEDTUBE 30 mg QDAY LADAN Administration Latanoprost 1 drops 08/08/21 18:00 08/09/21 22:42 Latanoprost 0.005% Ophth Soln 2.5 Ml OU Not Given QPM LADAN Metoclopramide HCl 2.5 mg 08/07/21 22:52 Metoclopramide 10 Mg/2 Ml Inj IV Q6H PRN Nausea And Vomiting Metoprolol Tartrate 25 mg 08/09/21 13:15 08/10/21 14:01 Metoprolol Tartrate 25 Mg Tab FEEDTUBE 25 mg Q8HR LADAN Administration Ondansetron HCl 4 mg 08/07/21 22:40 Ondansetron 4 Mg/2 Ml Inj IV Q3H PRN Nausea And Vomiting Sodium Chloride 10 ml 08/08/21 10:00 08/10/21 09:34 Sodium Chloride 0.9% 10 Ml Flush Syringe IV 10 ml BID LADAN Administration Sodium Chloride 10 ml 08/07/21 22:40 Sodium Chloride 0.9% 10 Ml Flush Syringe IV PRN PRN LINE FLUSH Tizanidine HCl 4 mg 08/07/21 22:35 Tizanidine Tab 4 Mg Tab PO BID PRN Muscle Spasm
[2021-08-10] MEDS: LATANOPROST 0.005% OPHTH SOLN 2.5 ML OU SCH (22:27)
[2021-08-10] MEDS: cloNIDine 0.2 MG TAB FEEDTUBE SCH (22:28)
[2021-08-11 05:05] LABS: Basophils % (Auto) 0.3 % (0.0-1.8); Eosinophils # (Auto) 0.2 K/mm3 (0.0-0.4); Eosinophils % (Auto) 1.3 % (0.0-4.3); Hematocrit 29.9 % (30.3-42.9); Hemoglobin 9.4 gm/dl (10.1-14.3); Lymphocytes # (Auto) 1.1 K/mm3 (1.2-5.4); Lymphocytes % (Auto) 7.9 % (13.4-35.0); Mean Corpuscular HGB Conc 31 % (30-34); Mean Corpuscular Volume 100 fl (79-97); Monocytes # (Auto) 0.8 K/mm3 (0.0-0.8); Monocytes % (Auto) 5.5 % (0.0-7.3); Platelet Count 343 K/mm3 (140-440); Red Blood Count 2.99 M/mm3 (3.65-5.03); Red Cell Distribution Width 19.3 % (13.2-15.2)
[2021-08-11 05:26] LABS: Alanine Aminotransferase 7 units/L (7-56); Albumin 2.4 g/dL (3.9-5); Blood Urea Nitrogen 24 mg/dL (7-17); Calcium 8.1 mg/dL (8.4-10.2); Hemolysis Index 13
[2021-08-11 05:48] LABS: BUN/Creatinine Ratio 5
[2021-08-11] MEDS: METOPROLOL TARTRATE 25 MG TAB FEEDTUBE SCH ×3 (06:38→22:28)
[2021-08-11] MEDS: ISOSORBIDE DINITRATE 10 MG TAB PO SCH ×3 (06:41→22:39)
[2021-08-11 07:13] LABS: Bacteria,Urine 2+ /HPF (Negative); Bilirubin,Urine NEG (Negative); Blood,Urine SM (Negative); Color,Urine Amber (Yellow); Protein,Urine >500 mg/dL (Negative); Red Blood Cell Casts,Urine 1 /LPF; Urobilinogen,Urine < 2.0 mg/dL (<2.0)
[2021-08-11] MEDS: amLODIPine 5 MG TAB FEEDTUBE SCH (09:27)
[2021-08-11] MEDS: hydrALAZINE 25 MG TAB FEEDTUBE SCH ×2 (09:27→22:27)
[2021-08-11] MEDS: ASPIRIN 81 MG TAB CHEW FEEDTUBE SCH (09:28)
[2021-08-11] MEDS: LANSOPRAZOLE 30 MG SOLUTAB FEEDTUBE SCH (09:28)
[2021-08-11] MEDS: HEPARIN 5,000 UNIT/1 ML VIAL SUB-Q SCH ×2 (09:28→22:27)
[2021-08-11] MEDS: CLOPIDOGREL 75 MG TAB FEEDTUBE SCH (09:28)
--- NOTE | 2021-08-11 11:53 | Progress Note ---
Assessment and Plan Assessment and plan: HPI: This is a 70-year-old female with HTN, CHF, DM, ESRD on HD, calciphylaxis, secondary hypoparathyroidism, neuropathy, gastroparesis who presented to the hospital on 08/07 via EMS for decreased responsiveness and altered mental status. Per EMS patient had surgery for varicose veins (however per PCP patient underwent some surgical debridement for wounds from calciphylaxis) and the patient is prescribed 1 mg of Dilaudid every 6 hours as needed per PCP. EMS stated that the patient was nonresponsive to painful stimuli and reported pinpoint pupils and intermittently administered Narcan and the patient started to wake up. Upon arrival to emergency department patient was still obtunded and responded to additional 0.4 mg of Narcan. Patient was initiated Narcan drip by ED for persistent unresponsiveness. Hospital Course to Date: 08/08: On examination patient has minimal responsiveness to tactile stimuli, remains hypertensive and restarted on p.o. medication. However due to concerns for aspiration NG tube was elected to be placed but eventually patient responded to IV labetalol. Patient remained on room air. Nephrology consulted family for initiation of hemodialysis. Per PCP patient was on peritoneal dialysis for 5 due to development of calciphylaxis patient was switched to ESRD for treatment. Per PCP patient only receives relief from painful lesions with Dilaudid 1 mg p.o. and nortriptyline. Patient was downgraded from CCU to IMCU and is receiving hemodialysis. 08/09: NG tube placed given persistent altered mental status, neurology suggests MRI brain and EEG to consider LP if clinically indicated. UDS ordered. Patient had hemodialysis yesterday and it is planned again today. 08/10: Pending Brain MRI, EEG, and UDS. Patient opens eyes to her name and withdraws to pain which is an improvement. Scheduled for dialysis today. Will continue supportive management. Updated family on patient clinical picture and reason for hospitalization. 08/11: Patient still not alert or oriented. Only withdraws to painful stimuli. Pending Brain MRI, EEG, and UDS. Assessment and plan: Neuro: Possible narcotic overdose, acute metabolic encephalopathy, glaucoma -S/p IVP Narcan x2 -S/p Narcan drip -Aspiration/fall precautions -CT head without contrast with no acute abnormalities -Hold home gabapentin, Dilaudid, Zanaflex -Continue home Lantanoprost -Neurology consulted, appreciate recommendations -Neurology recommends MRI brain, eeg and LP - UDS however patient is likely anuric so obtaining a sample would be challenging. -CCM consulted, appreciate recommendations Cardio: h/o HTN, CHF, CAD -Continue home amlodipine, Plavix, clonidine, aspirin, Lasix, hydralazine, Imdur, metoprolol -Blood pressure monitor per protocol -As needed hydralazine and labetalol -04/2021 echocardiogram showed LVEF of 60%, mild concentric LVH, mild MR, trace MO Respiratory: NAD -Supplemental oxygen as needed -Continues SPO2 monitoring -Pulmonary hygiene GI: GERD, hep C -Patient currently n.p.o. due to altered mental status -NGT placed today -PPI: Protonix -Hep C viral RNA pending : ESRD on HD, calciphylaxis, secondary hyperparathyroidism, hypomagnesemia -Nephrology consulted, appreciate recommendations -HD per nephrology -Strict intake and output -Avoid nephrotoxic medications -Renally dose medication -Daily weights -Replete magnesium and recheck in a.m. Endo: h/o DM II -Hemoglobin A1c 4.6 -Accu-Cheks every 4 -Avoid hypoglycemia -SSI if needed Heme: Anemia of chronic disease -Admit H/H 9.6/30.4 -Epogen per nephrology -Trend CBC -Transfuse to hemoglobin less than 7 -Heparin subcu ID: Leukocytosis -Per PCP s/p possible debridement for calciphylaxis wounds to bilateral lower extremities -May be reactive -Monitor for signs and symptoms of infection -Culture if needed The high probability of a clinically significant, sudden or life threatening deterioration of the [multi] system(s) required my full and direct attention, intervention and personal management. The aggregate critical care time was [60] minutes. This time is in addition to time spent performing reported procedures but includes the following: [x] Data Review and interpretation [x] Patient assessment and monitoring of vital signs [x] Documentation [x] Medication orders and management Disposition Plan: IMCU Total Time Spent with Patient (Minutes): 60 History Interval history: Continues to be confused/obtunded. Able to arouse to her name and sternal rub. However, she is still non-communicative Hospitalist Physical - Physical exam Narrative exam: General appearance: comfortable - EENT EENT: Present: PERRL, mucous membranes moist - Respiratory Respiratory: Present: chest non-tender, lungs clear, rhonchi - Cardiovascular Cardiovascular: Present: regular rate, normal S1, normal S2 Extremities: Present: no peripheral edema bilatateraly, no clubbing, cyanosis - Gastrointestinal Gastrointestinal: Present: normoactive bowel sounds - Integumentary Integumentary: Present: normal - Neurologic Cranial nerve examination: PERRL, EOMI, intact, other (pupils 3 mm reactive sluggish , corneal slightly intact gag is intact , she is braething spontaneously) Detailed motor examination: Opens eyes to name however does not follow commands other (slight withdrawal both lower and to a lesser extent upper to stmuli , planter is down going , nuchal rigidity is noted ) - Constitutional Vitals: Temp Pulse Resp BP Pulse Ox 98.5 F 87 13 147/67 99 08/11/21 08:00 08/11/21 10:31 08/11/21 10:31 08/11/21 10:31 08/11/21 10:31 General appearance: Present: no acute distress, well-nourished HEART Score - HEART Score Age: > 65 Risk factors: > 3 risk factors or hx of atherosclerotic disease Troponin: < normal limit - Critical Actions Critical Actions: 0-3 pts:0.9-1.7%risk of adverse cardiac event.Candidate for discharge Results - Labs CBC & Chem 7: 08/11/21 04:30 08/11/21 04:30 Labs: Laboratory Last Values WBC 14.2 K/mm3 (4.5-11.0) H 08/11/21 04:30 RBC 2.99 M/mm3 (3.65-5.03) L 08/11/21 04:30 Hgb 9.4 gm/dl (10.1-14.3) L 08/11/21 04:30 Hct 29.9 % (30.3-42.9) L 08/11/21 04:30 MCV 100 fl (79-97) H 08/11/21 04:30 MCH 31 pg (28-32) 08/11/21 04:30 MCHC 31 % (30-34) 08/11/21 04:30 RDW 19.3 % (13.2-15.2) H 08/11/21 04:30 Plt Count 343 K/mm3 (140-440) 08/11/21 04:30 Lymph % (Auto) 7.9 % (13.4-35.0) L 08/11/21 04:30 [place]lin % (Auto) 5.5 % (0.0-7.3) 08/11/21 04:30 Eos % (Auto) 1.3 % (0.0-4.3) 08/11/21 04:30 Baso % (Auto) 0.3 % (0.0-1.8) 08/11/21 04:30 Lymph # (Auto) 1.1 K/mm3 (1.2-5.4) L 08/11/21 04:30 [place]lin # (Auto) 0.8 K/mm3 (0.0-0.8) 08/11/21 04:30 Eos # (Auto) 0.2 K/mm3 (0.0-0.4) 08/11/21 04:30 Baso # (Auto) 0.0 K/mm3 (0.0-0.1) 08/11/21 04:30 Add Manual Diff Complete 08/08/21 05:11 Total Counted 100 08/08/21 05:11 Seg Neutrophils % 85.0 % (40.0-70.0) H 08/11/21 04:30 Seg Neuts % (Manual) 90.0 % (40.0-70.0) H 08/08/21 05:11 Monocytes % (Manual) 7.0 % (0.0-7.3) 08/08/21 05:11 Eosinophils % (Manual) 3.0 % (0.0-4.3) 08/08/21 05:11 Nucleated RBC % Not Reportable 08/08/21 05:11 Seg Neutrophils # 12.0 K/mm3 (1.8-7.7) H 08/11/21 04:30 Seg Neutrophils # Man 12.4 K/mm3 (1.8-7.7) H 08/08/21 05:11 Band Neutrophils # 0.0 K/mm3 08/08/21 05:11 Lymphocytes # (Manual) 0.0 K/mm3 (1.2-5.4) L 08/08/21 05:11 Abs React Lymphs (Man) 0.0 K/mm3 08/08/21 05:11 Monocytes # (Manual) 1.0 K/mm3 (0.0-0.8) H 08/08/21 05:11 Eosinophils # (Manual) 0.4 K/mm3 (0.0-0.4) 08/08/21 05:11 Basophils # (Manual) 0.0 K/mm3 (0.0-0.1) 08/08/21 05:11 Metamyelocytes # 0.0 K/mm3 08/08/21 05:11 Myelocytes # 0.0 K/mm3 08/08/21 05:11 Promyelocytes # 0.0 K/mm3 08/08/21 05:11 Blast Cells # 0.0 K/mm3 08/08/21 05:11 WBC Morphology Not Reportable 08/08/21 05:11 Hypersegmented Neuts Not Reportable 08/08/21 05:11 Hyposegmented Neuts Not Reportable 08/08/21 05:11 Hypogranular Neuts Not Reportable 08/08/21 05:11 Smudge Cells Not Reportable 08/08/21 05:11 Toxic Granulation 1+ 08/08/21 05:11 Toxic Vacuolation Not Reportable 08/08/21 05:11 Dohle Bodies Not Reportable 08/08/21 05:11 Pelger-Huet Anomaly Not Reportable 08/08/21 05:11 Arianna Rods Not Reportable 08/08/21 05:11 Platelet Estimate Consistent w auto 08/08/21 05:11 Clumped Platelets Not Reportable 08/08/21 05:11 Plt Clumps, EDTA Not Reportable 08/08/21 05:11 Large Platelets Not Reportable 08/08/21 05:11 Giant Platelets Not Reportable 08/08/21 05:11 Platelet Satelliting Not Reportable 08/08/21 05:11 Plt Morphology Comment Not Reportable 08/08/21 05:11 RBC Morphology Not Reportable 08/08/21 05:11 Dimorphic RBCs Not Reportable 08/08/21 05:11 Polychromasia Not Reportable 08/08/21 05:11 Hypochromasia Not Reportable 08/08/21 05:11 Poikilocytosis Not Reportable 08/08/21 05:11 Anisocytosis Not Reportable 08/08/21 05:11 Microcytosis Not Reportable 08/08/21 05:11 Macrocytosis Not Reportable 08/08/21 05:11 Spherocytes Not Reportable 08/08/21 05:11 Pappenheimer Bodies Not Reportable 08/08/21 05:11 Sickle Cells Not Reportable 08/08/21 05:11 Target Cells Not Reportable 08/08/21 05:11 Tear Drop Cells Not Reportable 08/08/21 05:11 Ovalocytes Not Reportable 08/08/21 05:11 Helmet Cells Not Reportable 08/08/21 05:11 [place] Bodies Not Reportable 08/08/21 05:11 [place] Rings Not Reportable 08/08/21 05:11 [place] Cells Not Reportable 08/08/21 05:11 Bite Cells Not Reportable 08/08/21 05:11 Crenated Cell Not Reportable 08/08/21 05:11 Elliptocytes Not Reportable 08/08/21 05:11 Acanthocytes (Spur) Not Reportable 08/08/21 05:11 Rouleaux Not Reportable 08/08/21 05:11 Hemoglobin C Crystals Not Reportable 08/08/21 05:11 Schistocytes Not Reportable 08/08/21 05:11 Malaria parasites Not Reportable 08/08/21 05:11 Say Bodies Not Reportable 08/08/21 05:11 Hem Pathologist Commnt No 08/08/21 05:11 Sodium 136 mmol/L (137-145) L 08/11/21 04:30 Potassium 3.9 mmol/L (3.6-5.0) 08/11/21 04:30 Chloride 97.5 mmol/L (98-107) L 08/11/21 04:30 Carbon Dioxide 22 mmol/L (22-30) 08/11/21 04:30 Anion Gap 20 mmol/L 08/11/21 04:30 BUN 24 mg/dL (7-17) H 08/11/21 04:30 Creatinine 4.7 mg/dL (0.6-1.2) H 08/11/21 04:30 Estimated GFR 9 ml/min 08/11/21 04:30 BUN/Creatinine Ratio 5 % 08/11/21 04:30 Glucose 175 mg/dL (65-100) H 08/11/21 04:30 POC Glucose 156 mg/dL (70-105) H 08/11/21 11:42 Hemoglobin A1c 4.8 % (4-6) 08/09/21 04:14 Lactic Acid 1.10 mmol/L (0.7-2.0) 08/07/21 14:41 Calcium 8.1 mg/dL (8.4-10.2) L 08/11/21 04:30 Phosphorus 4.20 mg/dL (2.5-4.5) 08/09/21 04:14 Magnesium 2.10 mg/dL (1.7-2.3) 08/10/21 05:38 Total Bilirubin < 0.20 mg/dL (0.1-1.2) 08/11/21 04:30 AST 21 units/L (5-40) 08/11/21 04:30 ALT 7 units/L (7-56) 08/11/21 04:30 Alkaline Phosphatase 160 units/L (35-129) H 08/11/21 04:30 Ammonia 20.0 umol/L (25-60) L 08/09/21 18:35 Total Protein 5.6 g/dL (6.3-8.2) L 08/11/21 04:30 Albumin 2.4 g/dL (3.9-5) L 08/11/21 04:30 Albumin/Globulin Ratio 0.8 % 08/11/21 04:30 Urine Color Lisseth (Yellow) 08/11/21 05:45 Urine Turbidity Cloudy (Clear) 08/11/21 05:45 Urine pH 7.0 (5.0-7.0) 08/11/21 05:45 Ur Specific [place] 1.014 (1.003-1.030) 08/11/21 05:45 Urine Protein >500 mg/dL (Negative) 08/11/21 05:45 Urine Glucose (UA) Neg mg/dL (Negative) 08/11/21 05:45 Urine Ketones Tr mg/dL (Negative) 08/11/21 05:45 Urine Blood Sm (Negative) 08/11/21 05:45 Urine Nitrite Neg (Negative) 08/11/21 05:45 Urine Bilirubin Neg (Negative) 08/11/21 05:45 Urine Urobilinogen < 2.0 mg/dL (<2.0) 08/11/21 05:45 Ur Leukocyte Esterase Sm (Negative) 08/11/21 05:45 Urine WBC (Auto) 91.0 /HPF (0.0-6.0) H 08/11/21 05:45 Urine RBC (Auto) 8.0 /HPF (0.0-6.0) 08/11/21 05:45 U Epithel Cells (Auto) 1.0 /HPF (0-13.0) 08/11/21 05:45 Urine Bacteria (Auto) 2+ /HPF (Negative) 08/11/21 05:45 Ur Transition Epith Cell 1 /HPF 08/11/21 05:45 RBC Casts 1 /LPF 08/11/21 05:45 Urine Mucus Few /HPF 08/10/21 Unknown Urine Opiates Screen Negative 08/09/21 Unknown Urine Methadone Screen Negative 08/09/21 Unknown Ur Barbiturates Screen Positive 08/09/21 Unknown Ur Phencyclidine Scrn Negative 08/09/21 Unknown Ur Amphetamines Screen Negative 08/09/21 Unknown U Benzodiazepines Scrn Positive 08/09/21 Unknown Urine Cocaine Screen Negative 08/09/21 Unknown U Marijuana (THC) Screen Negative 08/09/21 Unknown Drugs of Abuse Note Disclamer 08/09/21 Unknown Hepatitis A IgM Ab Non-reactive (NonReactive) 08/08/21 13:55 Hep Bs Antigen Nonreactive (Negative) 08/08/21 13:55 Hep B Core IgM Ab Non-reactive (NonReactive) 08/08/21 13:55 Hepatitis C Antibody Reactive (NonReactive) A 08/08/21 13:55 Noriega/IV: Voiding Method External Female Catheter Active Medications - Current Medications Current Medications: Generic Name Dose Route Start Last Admin Trade Name Freq PRN Reason Stop Dose Admin Acetaminophen 650 mg 08/07/21 22:40 Acetaminophen 325 Mg Tab PO Q4H PRN Pain MILD(1-3)/Fever >100.5/PÉREZ Albuterol 2.5 mg 08/07/21 22:48 Albuterol 2.5 Mg/3 Ml Nebu IH Q4HRT PRN Shortness Of Breath Amlodipine Besylate 5 mg 08/09/21 13:15 08/11/21 09:27 Amlodipine 5 Mg Tab FEEDTUBE 5 mg QDAY LADAN Administration Aspirin 81 mg 08/09/21 14:00 08/11/21 09:28 Aspirin 81 Mg Tab Chew FEEDTUBE 81 mg QDAY LADAN Administration Atorvastatin Calcium 40 mg 08/09/21 13:15 08/10/21 22:28 Atorvastatin 40 Mg Tab FEEDTUBE 40 mg QHS LADAN Administration Clonidine HCl 0.2 mg 08/09/21 13:15 08/10/21 22:28 Clonidine 0.2 Mg Tab FEEDTUBE 0.2 mg QHS LADAN Administration Clopidogrel Bisulfate 75 mg 08/09/21 13:15 08/11/21 09:28 Clopidogrel 75 Mg Tab FEEDTUBE 75 mg QDAY LADAN Administration Dextrose 25 ml 08/08/21 17:38 08/10/21 18:04 Dextrose 50% In Water (25gm) 50 Ml Syringe IV 25 ml Q30MIN PRN Administration Hypoglycemia Protocol Heparin Sodium (Porcine) 5,000 unit 08/08/21 10:00 08/11/21 09:28 Heparin 5,000 Unit/1 Ml Vial SUB-Q 5,000 unit Q12HR LADAN Administration Heparin Sodium (Porcine) 3,000 unit 08/09/21 09:40 Heparin 10,000 Units/10 Ml Vial IV TITO PRN hemodialysis Hydralazine HCl 10 mg 08/08/21 04:22 08/08/21 21:05 Hydralazine 20 Mg/1 Ml Inj IV 10 mg Q6H PRN Administration Hypertension Hydralazine HCl 50 mg 08/09/21 13:15 08/11/21 09:27 Hydralazine 25 Mg Tab FEEDTUBE 50 mg BID LADAN Administration Sodium Chloride 100 mls @ 999 mls/hr 08/08/21 13:00 Nacl 0.9% IV TITO PRN Hypotension Isosorbide Dinitrate 10 mg 08/10/21 14:00 08/11/21 06:41 Isosorbide Dinitrate 10 Mg Tab PO 10 mg Q8H LADAN Administration Labetalol HCl 10 mg 08/08/21 08:38 08/08/21 10:00 Labetalol 20 Mg/4 Ml Inj IV 10 mg Q4HR PRN Administration Hypertension Lansoprazole 30 mg 08/09/21 14:00 08/11/21 09:28 Lansoprazole 30 Mg Solutab FEEDTUBE 30 mg QDAY LADAN Administration Latanoprost 1 drops 08/08/21 18:00 08/10/21 22:27 Latanoprost 0.005% Ophth Soln 2.5 Ml OU 1 drops QPM LADAN Administration Metoclopramide HCl 2.5 mg 08/07/21 22:52 Metoclopramide 10 Mg/2 Ml Inj IV Q6H PRN Nausea And Vomiting Metoprolol Tartrate 25 mg 08/09/21 13:15 08/11/21 06:38 Metoprolol Tartrate 25 Mg Tab FEEDTUBE 25 mg Q8HR LADAN Administration Ondansetron HCl 4 mg 08/07/21 22:40 Ondansetron 4 Mg/2 Ml Inj IV Q3H PRN Nausea And Vomiting Sodium Chloride 10 ml 08/08/21 10:00 08/11/21 09:29 Sodium Chloride 0.9% 10 Ml Flush Syringe IV 10 ml BID LADAN Administration Sodium Chloride 10 ml 08/07/21 22:40 Sodium Chloride 0.9% 10 Ml Flush Syringe IV PRN PRN LINE FLUSH Tizanidine HCl 4 mg 08/07/21 22:35 Tizanidine Tab 4 Mg Tab PO BID PRN Muscle Spasm
--- NOTE | 2021-08-11 12:28 | Magnetic Resonance Report ---
MR BRAIN WO CON INDICATION / CLINICAL INFORMATION: 70 years Female; Seizure disorder. TECHNIQUE: Multiplanar, multisequence MR images of the brain were obtained. COMPARISON: CT head dated 08/08/2019 FINDINGS: BRAIN / INTRACRANIAL CONTENTS: Minimal cerebral and cerebellar atrophy. There are scattered areas of increased signal intensity on FLAIR imaging in the white matter of the c erebral hemispheres. These are nonspecific findings and may be related to microangiopathy (hypertensi on, diabetes, atherosclerosis), given the patient's age. No chronic infarct is identified. The media l temporal lobes appear symmetric and unremarkable. Otherwise, no acute ischemia, acute hemorrhage, or hydrocephalus. CRANIOCERVICAL JUNCTION: No significant abnormality. VASCULAR FLOW-VOIDS: No significant abnormality. ORBITS: No significant abnormality of visualized orbits. SINUSES / MASTOIDS: There is moderate fluid throughout the mastoid air cells. Visualized sinuses are clear. ADDITIONAL FINDINGS: None. IMPRESSION: No acute intracranial process, mass lesion, hemorrhage or acute ischemia. Mild volume loss and nonspecific chronic white matter changes which appear appropriate for this perso n's age. Fluid in the mastoid air cells but no evidence for bony destruction or advanced inflammation. Signer Name: Eduardo Flores Jr, MD Signed: 08/11/2021 12:24 PM Workstation Name: [id number]
--- NOTE | 2021-08-11 15:13 | Progress Note ---
Assessment and Plan 1. ESRD: Patient is on maintenance HD, MWF schedule. Per she was switched to HD about 2 months ago 2/2 calciphylaxis. Meds dosage based on GFR. Last outpatient HD 08/04. Hemodialysis: 08/08, 08/09. HD today. 2. FEN: Hyperkalemia, on HD. Anion-gap metabolic acidosis, on HD. Monitor lytes and volume status. 3. Acute metabolic encephalopathy, POA: 2/2 narcotic OD. S/p Narcan drip. CT head negative. Seen by Neuro. Monitor. 4. CAD s/p stent. Plavix, Statin, Aspirin, BB. Echo; EF 60%, LVH. 5. Anemia: Epogen with HD. 6. HTN. 7. Type 2 DM. Subjective: Patient was seen and examined at the bedside. Examination: General appearance: well-developed, well-nourished, appears stated age, not in distress HEENT: ATNC, pupils equal Neck: trachea midline Respiratory: Clear to Auscultation Cardiology: regular, S1S2, no murmur Gastrointestinal: normoactive bowel sounds, not tender, PD catheter noted Integumentary: b/l LE dressing noted Neurologic: lethargic, able to tell her name Ext: no edema Hemodialysis access: R IJ tunnel catheter Subjective Date of service: 08/11/21 Principal diagnosis: Unresponsivness Objective - Vital Signs Vital signs: Vital Signs - 12hr 08/11/21 08/11/21 08/11/21 03:21 03:31 03:41 Temperature Pulse Rate 90 90 80 Pulse Rate [ From Monitor] Respiratory 12 16 12 Rate Respiratory Rate [Right Lower Leg] Blood Pressure 136/68 136/68 136/68 O2 Sat by Pulse 100 99 99 Oximetry O2 Sat by Pulse Oximetry [ Anterior Bilateral] 08/11/21 08/11/21 08/11/21 03:44 03:51 04:00 Temperature 98.8 F Pulse Rate 85 89 Pulse Rate [ 81 From Monitor] Respiratory 11 L 15 Rate Respiratory Rate [Right Lower Leg] Blood Pressure 136/68 158/70 O2 Sat by Pulse 99 99 Oximetry O2 Sat by Pulse Oximetry [ Anterior Bilateral] 08/11/21 08/11/21 08/11/21 04:11 04:21 04:31 Temperature Pulse Rate 80 87 85 Pulse Rate [ From Monitor] Respiratory 9 L 12 12 Rate Respiratory Rate [Right Lower Leg] Blood Pressure 158/70 158/70 158/70 O2 Sat by Pulse 98 99 99 Oximetry O2 Sat by Pulse Oximetry [ Anterior Bilateral] 08/11/21 08/11/21 08/11/21 04:41 04:51 05:00 Temperature Pulse Rate 85 81 84 Pulse Rate [ From Monitor] Respiratory 16 11 L 10 L Rate Respiratory Rate [Right Lower Leg] Blood Pressure 158/70 158/70 156/71 O2 Sat by Pulse 99 96 98 Oximetry O2 Sat by Pulse Oximetry [ Anterior Bilateral] 08/11/21 08/11/21 08/11/21 05:11 05:21 05:31 Temperature Pulse Rate 84 87 85 Pulse Rate [ From Monitor] Respiratory 12 11 L 11 L Rate Respiratory Rate [Right Lower Leg] Blood Pressure 158/70 158/70 158/70 O2 Sat by Pulse 99 97 97 Oximetry O2 Sat by Pulse Oximetry [ Anterior Bilateral] 08/11/21 08/11/21 08/11/21 05:41 05:51 06:00 Temperature Pulse Rate 85 87 88 Pulse Rate [ From Monitor] Respiratory 13 10 L 14 Rate Respiratory Rate [Right Lower Leg] Blood Pressure 158/70 158/70 167/73 O2 Sat by Pulse 98 96 99 Oximetry O2 Sat by Pulse Oximetry [ Anterior Bilateral] 08/11/21 08/11/21 08/11/21 06:11 06:21 06:31 Temperature Pulse Rate 86 86 92 H Pulse Rate [ From Monitor] Respiratory 14 11 L 14 Rate Respiratory Rate [Right Lower Leg] Blood Pressure 167/73 167/73 167/73 O2 Sat by Pulse 99 99 99 Oximetry O2 Sat by Pulse Oximetry [ Anterior Bilateral] 08/11/21 08/11/21 08/11/21 06:38 06:41 06:51 Temperature Pulse Rate 80 81 77 Pulse Rate [ From Monitor] Respiratory 10 L 13 Rate Respiratory Rate [Right Lower Leg] Blood Pressure 167/73 167/73 167/73 O2 Sat by Pulse 99 99 Oximetry O2 Sat by Pulse Oximetry [ Anterior Bilateral] 08/11/21 08/11/21 08/11/21 07:00 07:11 07:21 Temperature Pulse Rate 73 75 83 Pulse Rate [ From Monitor] Respiratory 11 L 13 17 Rate Respiratory Rate [Right Lower Leg] Blood Pressure 134/62 167/73 167/73 O2 Sat by Pulse 100 100 99 Oximetry O2 Sat by Pulse Oximetry [ Anterior Bilateral] 08/11/21 08/11/21 08/11/21 07:31 07:41 07:51 Temperature Pulse Rate 80 75 85 Pulse Rate [ From Monitor] Respiratory 15 9 L 15 Rate Respiratory Rate [Right Lower Leg] Blood Pressure 167/73 167/73 167/73 O2 Sat by Pulse 100 99 100 Oximetry O2 Sat by Pulse Oximetry [ Anterior Bilateral] 08/11/21 08/11/21 08/11/21 08:00 08:11 08:21 Temperature 98.5 F Pulse Rate 83 78 77 Pulse Rate [ 83 From Monitor] Respiratory 12 11 L 11 L Rate Respiratory Rate [Right Lower Leg] Blood Pressure 165/74 165/74 165/74 O2 Sat by Pulse 99 99 99 Oximetry O2 Sat by Pulse Oximetry [ Anterior Bilateral] 08/11/21 08/11/21 08/11/21 08:31 08:41 08:51 Temperature Pulse Rate 77 82 83 Pulse Rate [ From Monitor] Respiratory 11 L 15 16 Rate Respiratory Rate [Right Lower Leg] Blood Pressure 165/74 165/74 165/74 O2 Sat by Pulse 100 100 100 Oximetry O2 Sat by Pulse Oximetry [ Anterior Bilateral] 08/11/21 08/11/21 08/11/21 09:00 09:11 09:21 Temperature Pulse Rate 84 85 83 Pulse Rate [ From Monitor] Respiratory 16 12 14 Rate Respiratory Rate [Right Lower Leg] Blood Pressure 184/81 165/74 165/74 O2 Sat by Pulse 100 100 100 Oximetry O2 Sat by Pulse Oximetry [ Anterior Bilateral] 08/11/21 08/11/21 08/11/21 09:27 09:31 09:41 Temperature Pulse Rate 87 80 93 H Pulse Rate [ From Monitor] Respiratory 11 L 18 Rate Respiratory Rate [Right Lower Leg] Blood Pressure 184/81 165/74 165/74 O2 Sat by Pulse 99 99 Oximetry O2 Sat by Pulse Oximetry [ Anterior Bilateral] 08/11/21 08/11/21 08/11/21 09:51 10:00 10:11 Temperature Pulse Rate 85 87 85 Pulse Rate [ From Monitor] Respiratory 14 14 12 Rate Respiratory 12 Rate [Right Lower Leg] Blood Pressure 165/74 147/67 147/67 O2 Sat by Pulse 98 99 98 Oximetry O2 Sat by Pulse Oximetry [ Anterior Bilateral] 08/11/21 08/11/2121 10:21 10:31 10:40 Temperature Pulse Rate 88 87 88 Pulse Rate [ From Monitor] Respiratory 12 13 15 Rate Respiratory Rate [Right Lower Leg] Blood Pressure 147/67 147/67 147/67 O2 Sat by Pulse 99 99 100 Oximetry O2 Sat by Pulse Oximetry [ Anterior Bilateral] 08/11/21 08/11/21 08/11/21 11:41 11:51 12:00 Temperature 98 F Pulse Rate 85 85 84 Pulse Rate [ 83 From Monitor] Respiratory 13 13 13 Rate Respiratory Rate [Right Lower Leg] Blood Pressure 137/65 137/65 129/63 O2 Sat by Pulse 98 97 96 Oximetry O2 Sat by Pulse Oximetry [ Anterior Bilateral] 08/11/21 08/11/21 08/11/21 12:11 12:21 12:31 Temperature Pulse Rate 84 89 91 H Pulse Rate [ From Monitor] Respiratory 13 15 20 Rate Respiratory Rate [Right Lower Leg] Blood Pressure 129/63 129/63 129/63 O2 Sat by Pulse 97 98 99 Oximetry O2 Sat by Pulse Oximetry [ Anterior Bilateral] 08/11/21 08/11/21 08/11/21 12:41 12:51 13:00 Temperature Pulse Rate 85 91 H 83 Pulse Rate [ From Monitor] Respiratory 11 L 15 10 L Rate Respiratory Rate [Right Lower Leg] Blood Pressure 129/63 129/63 147/64 O2 Sat by Pulse 99 99 97 Oximetry O2 Sat by Pulse Oximetry [ Anterior Bilateral] 08/11/21 08/11/21 08/11/21 13:11 13:21 13:31 Temperature Pulse Rate 86 83 87 Pulse Rate [ From Monitor] Respiratory 9 L 9 L 12 Rate Respiratory Rate [Right Lower Leg] Blood Pressure 147/64 147/64 147/64 O2 Sat by Pulse 98 97 98 Oximetry O2 Sat by Pulse Oximetry [ Anterior Bilateral] 08/11/21 08/11/21 08/11/21 13:41 13:50 13:55 Temperature 97.7 F Pulse Rate 89 86 85 Pulse Rate [ From Monitor] Respiratory 13 11 L Rate Respiratory Rate [Right Lower Leg] Blood Pressure 147/64 144/65 145/64 O2 Sat by Pulse 98 96 Oximetry O2 Sat by Pulse 98 Oximetry [ Anterior Bilateral] 08/11/21 08/11/21 08/11/21 14:00 14:11 14:15 Temperature Pulse Rate 82 90 88 Pulse Rate [ From Monitor] Respiratory 9 L 12 Rate Respiratory Rate [Right Lower Leg] Blood Pressure 137/64 137/64 125/62 O2 Sat by Pulse 97 98 Oximetry O2 Sat by Pulse Oximetry [ Anterior Bilateral] 08/11/21 08/11/21 08/11/21 14:21 14:30 14:45 Temperature Pulse Rate 92 H 93 H 94 H Pulse Rate [ From Monitor] Respiratory 11 L 12 Rate Respiratory Rate [Right Lower Leg] Blood Pressure 125/62 123/65 124/66 O2 Sat by Pulse 98 97 Oximetry O2 Sat by Pulse Oximetry [ Anterior Bilateral] 08/11/21 15:00 Temperature Pulse Rate 99 H Pulse Rate [ From Monitor] Respiratory Rate Respiratory Rate [Right Lower Leg] Blood Pressure 112/66 O2 Sat by Pulse Oximetry O2 Sat by Pulse Oximetry [ Anterior Bilateral] - Lab 08/11/21 04:30 08/11/21 04:30 Most recent lab results Calcium 8.1 mg/dL (8.4-10.2) L 08/11/21 04:30 Phosphorus 4.20 mg/dL (2.5-4.5) 08/09/21 04:14 Magnesium 2.10 mg/dL (1.7-2.3) 08/10/21 05:38 Medications & Allergies - Medications Allergies/Adverse Reactions: Allergies Penicillins Allergy (Verified 08/30/18 08:25) Itching Home Medications: Home Medications Medication Instructions Recorded Confirmed Last Taken Type Albuterol Sulfate [Ventolin Hfa] 2 puff IH Q6H PRN 08/30/18 05/02/21 10/08/18 History Amlodipine Besylate [Norvasc] 5 mg PO QDAY 08/30/18 05/02/21 10/08/18 History HYDROcodone/APAP 7.5-325 [[place] 1 each PO DAILY PRN 08/30/18 08/08/21 10/06/18 History 7.5-325 mg TAB] Hydralazine HCl 50 mg PO BID 08/30/18 08/08/21 10/08/18 History Latanoprost 0.005% 1 drop OU QPM 08/30/18 08/08/21 10/08/18 History tiZANidine [Zanaflex 4mg TAB] 4 mg PO DAILY PRN 08/30/18 08/08/2118 History Insulin Glargine [Lantus VIAL] 25 units SUB-Q QHS #1 vial 10/06/18 05/02/21 10/08/18 Rx Insulin Lispro [HumaLOG VIAL] 0 units SQ AC #1 vial 10/06/18 05/02/21 10/08/18 Rx Aspirin EC [Halfprin EC] 81 mg PO QDAY #90 tablet 05/02/21 08/08/21 Unknown Rx AtorvaSTATin [Lipitor] 40 mg PO QHS #90 tablet 05/02/21 08/08/21 Unknown Rx Clopidogrel [Plavix] 75 mg PO QDAY #90 tablet 05/02/21 08/08/21 Unknown Rx ISOSORBIDE MONOnitrate [Imdur ER] 30 mg PO QDAY #90 tablet 05/02/21 Unknown Rx AtorvaSTATin [Lipitor] 40 mg PO QHS 08/08/21 08/08/21 Unknown History Cinacalcet [Sensipar] 30 mg PO QDAY 08/08/21 08/08/21 Unknown History Furosemide [Lasix TAB] 80 mg PO 08/08/21 Unknown History Furosemide [Lasix TAB] 80 mg PO QDAY 08/08/21 08/08/21 Unknown History HYDROmorphone [Dilaudid] 2 mg PO Q8H PRN 08/08/21 08/08/21 Unknown History Metoprolol Succinate [Toprol Xl] 25 mg PO DAILY 08/08/21 08/08/21 Unknown Hi story Nortriptyline [Pamelor] 25 mg PO DAILY 08/08/21 08/08/21 Unknown History calcitrioL [Rocaltrol] 0.5 mcg PO QDAY 08/08/21 08/08/21 Unknown History calcitrioL [Rocaltrol] 0.5 mcg PO QDAY 08/08/21 08/08/21 Unknown History metOLazone [Zaroxolyn] 5 mg PO QDAY 08/08/21 08/08/21 Unknown History Active Medications: Generic Name Dose Route Start Last Admin Trade Name Freq PRN Reason Stop Dose Admin Acetaminophen 650 mg 08/07/21 22:40 Acetaminophen 325 Mg Tab PO Q4H PRN Pain MILD(1-3)/Fever >100.5/PÉREZ Albuterol 2.5 mg 08/07/21 22:48 Albuterol 2.5 Mg/3 Ml Nebu IH Q4HRT PRN Shortness Of Breath Amlodipine Besylate 5 mg 08/09/21 13:15 08/11/21 09:27 Amlodipine 5 Mg Tab FEEDTUBE 5 mg QDAY LADAN Administration Aspirin 81 mg 08/09/21 14:00 08/11/21 09:28 Aspirin 81 Mg Tab Chew FEEDTUBE 81 mg QDAY LADAN Administration Atorvastatin Calcium 40 mg 08/09/21 13:15 08/10/21 22:28 Atorvastatin 40 Mg Tab FEEDTUBE 40 mg QHS LADAN Administration Clonidine HCl 0.2 mg 08/09/21 13:15 08/10/21 22:28 Clonidine 0.2 Mg Tab FEEDTUBE 0.2 mg QHS LADAN Administration Clopidogrel Bisulfate 75 mg 08/09/21 13:15 08/11/21 09:28 Clopidogrel 75 Mg Tab FEEDTUBE 75 mg QDAY LADAN Administration Dextrose 25 ml 08/08/21 17:38 08/10/21 18:04 Dextrose 50% In Water (25gm) 50 Ml Syringe IV 25 ml Q30MIN PRN Administration Hypoglycemia Protocol Heparin Sodium (Porcine) 5,000 unit 08/08/21 10:00 08/11/21 09:28 Heparin 5,000 Unit/1 Ml Vial SUB-Q 5,000 unit Q12HR LADAN Administration Heparin Sodium (Porcine) 3,000 unit 08/09/21 09:40 Heparin 10,000 Units/10 Ml Vial IV TITO PRN hemodialysis Hydralazine HCl 10 mg 08/08/21 04:22 08/08/21 21:05 Hydralazine 20 Mg/1 Ml Inj IV 10 mg Q6H PRN Administration Hypertension Hydralazine HCl 50 mg 08/09/21 13:15 08/11/21 09:27 Hydralazine 25 Mg Tab FEEDTUBE 50 mg BID LADAN Administration Sodium Chloride 100 mls @ 999 mls/hr 08/08/21 13:00 Nacl 0.9% IV TITO PRN Hypotension Isosorbide Dinitrate 10 mg 08/10/21 14:00 08/11/21 06:41 Isosorbide Dinitrate 10 Mg Tab PO 10 mg Q8H LADAN Administration Labetalol HCl 10 mg 08/08/21 08:38 08/08/21 10:00 Labetalol 20 Mg/4 Ml Inj IV 10 mg Q4HR PRN Administration Hypertension Lansoprazole 30 mg 08/09/21 14:00 08/11/21 09:28 Lansoprazole 30 Mg Solutab FEEDTUBE 30 mg QDAY LADAN Administration Latanoprost 1 drops 08/08/21 18:00 08/10/21 22:27 Latanoprost 0.005% Ophth Soln 2.5 Ml OU 1 drops QPM LADAN Administration Metoclopramide HCl 2.5 mg 08/07/21 22:52 Metoclopramide 10 Mg/2 Ml Inj IV Q6H PRN Nausea And Vomiting Metoprolol Tartrate 25 mg 08/09/21 13:15 08/11/21 06:38 Metoprolol Tartrate 25 Mg Tab FEEDTUBE 25 mg Q8HR LADAN Administration Ondansetron HCl 4 mg 08/07/21 22:40 Ondansetron 4 Mg/2 Ml Inj IV Q3H PRN Nausea And Vomiting Sodium Chloride 10 ml 08/08/21 10:00 08/11/21 09:29 Sodium Chloride 0.9% 10 Ml Flush Syringe IV 10 ml BID LADAN Administration Sodium Chloride 10 ml 08/07/21 22:40 Sodium Chloride 0.9% 10 Ml Flush Syringe IV PRN PRN LINE FLUSH Tizanidine HCl 4 mg 08/07/21 22:35 Tizanidine Tab 4 Mg Tab PO BID PRN Muscle Spasm
[2021-08-11] MEDS: LATANOPROST 0.005% OPHTH SOLN 2.5 ML OU SCH (17:50)
[2021-08-11] MEDS: cloNIDine 0.2 MG TAB FEEDTUBE SCH (22:27)
[2021-08-12] MEDS: ISOSORBIDE DINITRATE 10 MG TAB PO SCH ×3 (05:41→22:57)
[2021-08-12] MEDS: METOPROLOL TARTRATE 25 MG TAB FEEDTUBE SCH ×3 (05:42→22:43)
--- NOTE | 2021-08-12 09:48 | Progress Note ---
Assessment and Plan 1. ESRD: Patient is on maintenance HD, MWF schedule. Per she was switched to HD about 2 months ago 2/2 calciphylaxis. Meds dosage based on GFR. Last outpatient HD 08/04. Hemodialysis: 08/08, 08/09, 08/11. 2. FEN: Hyperkalemia, on HD. Anion-gap metabolic acidosis, on HD. Monitor lytes and volume status. 3. Acute metabolic encephalopathy, POA: 2/2 narcotic OD. S/p Narcan drip. CT head negative. Seen by Neuro. MS is improving. Monitor. 4. CAD s/p stent. Plavix, Statin, Aspirin, BB. Echo; EF 60%, LVH. 5. Anemia: Epogen with HD. 6. HTN. 7. Type 2 DM. Subjective: Patient was seen and examined at the bedside. Examination: General appearance: well-developed, well-nourished, appears stated age, not in distress, NG tube HEENT: ATNC, pupils equal Neck: trachea midline Respiratory: Clear to Auscultation Cardiology: regular, S1S2, no murmur Gastrointestinal: normoactive bowel sounds, not tender, PD catheter noted Integumentary: b/l LE dressing noted Neurologic: alert, able to tell her name & hospital, able to move extremities Ext: trace UE edema Hemodialysis access: R IJ tunnel catheter Subjective Date of service: 08/12/21 Principal diagnosis: Unresponsivness Objective - Vital Signs Vital signs: Vital Signs - 12hr 08/11/21 08/11/21 08/11/21 22:00 23:01 23:51 Temperature Pulse Rate 106 H 79 Pulse Rate [ From Monitor] Respiratory 13 13 Rate Respiratory 12 Rate [Right Lower Leg] Blood Pressure 165/73 98/47 O2 Sat by Pulse 95 96 99 Oximetry 08/12/21 08/12/21 08/12/21 00:00 00:01 01:00 Temperature 98.5 F Pulse Rate 78 78 84 Pulse Rate [ 78 From Monitor] Respiratory 11 L 11 L 11 L Rate Respiratory Rate [Right Lower Leg] Blood Pressure 132/54 143/64 O2 Sat by Pulse 98 94 95 Oximetry 08/12/21 08/12/21 08/12/21 02:00 03:00 04:00 Temperature 97.8 F Pulse Rate 89 90 91 H Pulse Rate [ 91 H From Monitor] Respiratory 10 L 13 11 L Rate Respiratory Rate [Right Lower Leg] Blood Pressure 155/68 155/68 165/72 O2 Sat by Pulse 96 96 94 Oximetry 08/12/21 08/12/21 08/12/21 05:00 06:00 07:01 Temperature Pulse Rate 89 84 81 Pulse Rate [ From Monitor] Respiratory 11 L 11 L 11 L Rate Respiratory Rate [Right Lower Leg] Blood Pressure 169/72 145/70 131/77 O2 Sat by Pulse 95 95 94 Oximetry 08/12/21 08/12/21 08:00 09:01 Temperature Pulse Rate 84 87 Pulse Rate [ From Monitor] Respiratory 10 L 12 Rate Respiratory Rate [Right Lower Leg] Blood Pressure 131/77 170/79 O2 Sat by Pulse 96 95 Oximetry - Lab 08/11/21 04:30 08/11/21 04:30 Most recent lab results Calcium 8.1 mg/dL (8.4-10.2) L 08/11/21 04:30 Phosphorus 4.20 mg/dL (2.5-4.5) 08/09/21 04:14 Magnesium 2.10 mg/dL (1.7-2.3) 08/10/21 05:38 Medications & Allergies - Medications Allergies/Adverse Reactions: Allergies Penicillins Allergy (Unknown, Verified 08/11/21 17:39) Itching Home Medications: Home Medications Medication Instructions Recorded Confirmed Last Taken Type Albuterol Sulfate [Ventolin Hfa] 2 puff IH Q6H PRN 08/30/18 08/11/21 10/08/18 History HYDROcodone/APAP 7.5-325 [[place] 1 each PO DAILY PRN 08/30/18 08/08/21 10/06/18 History 7.5-325 mg TAB] Hydralazine HCl 50 mg PO BID 08/30/18 08/08/21 10/08/18 History Latanoprost 0.005% 1 drop OU QPM 08/30/18 08/08/21 10/08/18 History tiZANidine [Zanaflex 4mg TAB] 4 mg PO DAILY PRN 08/30/18 08/08/21 10/08/18 History Insulin Lispro [HumaLOG VIAL] 0 units SQ AC #1 vial 10/06/18 08/11/21 10/08/18 Rx Aspirin EC [Halfprin EC] 81 mg PO QDAY #90 tablet 05/02/21 08/08/21 Unknown Rx AtorvaSTATin [Lipitor] 40 mg PO QHS #90 tablet 05/02/21 08/08/21 Unknown Rx Clopidogrel [Plavix] 75 mg PO QDAY #90 tablet 05/02/21 08/08/21 Unknown Rx AtorvaSTATin [Lipitor] 40 mg PO QHS 08/08/21 08/08/21 Unknown History Cinacalcet [Sensipar] 30 mg PO QDAY 08/08/21 08/08/21 Unknown History Furosemide [Lasix TAB] 80 mg PO QDAY 08/08/21 08/08/21 Unknown History HYDROmorphone [Dilaudid] 2 mg PO Q8H PRN 08/08/21 08/08/21 Unknown History Metoprolol Succinate [Toprol Xl] 25 mg PO DAILY 08/08/21 08/08/21 Unknown History Nortriptyline [Pamelor] 25 mg PO DAILY 08/08/21 08/08/21 Unknown History calcitrioL [Rocaltrol] 0.5 mcg PO QDAY 08/08/21 08/08/21 Unknown History calcitrioL [Rocaltrol] 0.5 mcg PO QDAY 08/08/21 08/08/21 Unknown History metOLazone [Zaroxolyn] 5 mg PO QDAY 08/08/21 08/08/21 Unknown History Active Medications: Generic Name Dose Route Start Last Admin Trade Name Freq PRN Reason Stop Dose Admin Acetaminophen 650 mg 08/07/21 22:40 Acetaminophen 325 Mg Tab PO Q4H PRN Pain MILD(1-3)/Fever >100.5/PÉREZ Albuterol 2.5 mg 08/07/21 22:48 Albuterol 2.5 Mg/3 Ml Nebu IH Q4HRT PRN Shortness Of Breath Amlodipine Besylate 5 mg 08/09/21 13:15 08/11/21 09:27 Amlodipine 5 Mg Tab FEEDTUBE 5 mg QDAY LADAN Administration Aspirin 81 mg 08/09/21 14:00 08/11/21 09:28 Aspirin 81 Mg Tab Chew FEEDTUBE 81 mg QDAY LADAN Administration Atorvastatin Calcium 40 mg 08/09/21 13:15 08/11/21 22:28 Atorvastatin 40 Mg Tab FEEDTUBE 40 mg QHS LADAN Administration Clonidine HCl 0.2 mg 08/09/21 13:15 08/11/21 22:27 Clonidine 0.2 Mg Tab FEEDTUBE 0.2 mg QHS LADAN Administration Clopidogrel Bisulfate 75 mg 08/09/21 13:15 08/11/21 09:28 Clopidogrel 75 Mg Tab FEEDTUBE 75 mg QDAY LADAN Administration Dextrose 25 ml 08/08/21 17:38 08/10/21 18:04 Dextrose 50% In Water (25gm) 50 Ml Syringe IV 25 ml Q30MIN PRN Administration Hypoglycemia Protocol Heparin Sodium (Porcine) 5,000 unit 08/08/21 10:00 08/11/21 22:27 Heparin 5,000 Unit/1 Ml Vial SUB-Q 5,000 unit Q12HR LADAN Administration Heparin Sodium (Porcine) 3,000 unit 08/09/21 09:40 Heparin 10,000 Units/10 Ml Vial IV TITO PRN hemodialysis Hydralazine HCl 10 mg 08/08/21 04:22 08/08/21 21:05 Hydralazine 20 Mg/1 Ml Inj IV 10 mg Q6H PRN Administration Hypertension Hydralazine HCl 50 mg 08/09/21 13:15 08/11/21 22:27 Hydralazine 25 Mg Tab FEEDTUBE 50 mg BID LADAN Administration Sodium Chloride 100 mls @ 999 mls/hr 08/08/21 13:00 Nacl 0.9% IV TITO PRN Hypotension Isosorbide Dinitrate 10 mg 08/10/21 14:00 08/12/21 05:41 Isosorbide Dinitrate 10 Mg Tab PO 10 mg Q8H LADAN Administration Labetalol HCl 10 mg 08/08/21 08:38 08/08/21 10:00 Labetalol 20 Mg/4 Ml Inj IV 10 mg Q4HR PRN Administration Hypertension Lansoprazole 30 mg 08/09/21 14:00 08/11/21 09:28 Lansoprazole 30 Mg Solutab FEEDTUBE 30 mg QDAY LADAN Administration Latanoprost 1 drops 08/08/21 18:00 08/11/21 17:50 Latanoprost 0.005% Ophth Soln 2.5 Ml OU 1 drops QPM LADAN Administration Metoclopramide HCl 2.5 mg 08/07/21 22:52 Metoclopramide 10 Mg/2 Ml Inj IV Q6H PRN Nausea And Vomiting Metoprolol Tartrate 25 mg 08/09/21 13:15 08/12/21 05:42 Metoprolol Tartrate 25 Mg Tab FEEDTUBE 25 mg Q8HR LADAN Administration Ondansetron HCl 4 mg 08/07/21 22:40 Ondansetron 4 Mg/2 Ml Inj IV Q3H PRN Nausea And Vomiting Sodium Chloride 10 ml 08/08/21 10:00 08/11/21 22:28 Sodium Chloride 0.9% 10 Ml Flush Syringe IV 10 ml BID LADAN Administration Sodium Chloride 10 ml 08/07/21 22:40 Sodium Chloride 0.9% 10 Ml Flush Syringe IV PRN PRN LINE FLUSH Tizanidine HCl 4 mg 08/07/21 22:35 Tizanidine Tab 4 Mg Tab PO BID PRN Muscle Spasm
[2021-08-12] MEDS: CLOPIDOGREL 75 MG TAB FEEDTUBE SCH (10:11)
[2021-08-12] MEDS: hydrALAZINE 25 MG TAB FEEDTUBE SCH ×2 (10:11→22:44)
[2021-08-12] MEDS: ASPIRIN 81 MG TAB CHEW FEEDTUBE SCH (10:11)
[2021-08-12] MEDS: LANSOPRAZOLE 30 MG SOLUTAB FEEDTUBE SCH (10:26)
[2021-08-12] MEDS: HEPARIN 5,000 UNIT/1 ML VIAL SUB-Q SCH ×2 (10:26→22:44)
[2021-08-12] MEDS: amLODIPine 5 MG TAB FEEDTUBE SCH (10:27)
[2021-08-12] MEDS ORDERED: LIPASE 10,500/PROTEASE 25,000/AMYLASE 43,750 (UNITS) DR CAP FEEDTUBE PRN (12:41)
[2021-08-12] MEDS ORDERED: SIMPLE SYRUP 15 ML FEEDTUBE PRN ×2 (12:41)
[2021-08-12] MEDS ORDERED: SODIUM BICARBONATE 325 MG TAB FEEDTUBE PRN (12:41)
--- NOTE | 2021-08-12 15:01 | Progress Note ---
Assessment and Plan Assessment and plan: HPI: This is a 70-year-old female with HTN, CHF, DM, ESRD on HD, calciphylaxis, secondary hypoparathyroidism, neuropathy, gastroparesis who presented to the hospital on 08/07 via EMS for decreased responsiveness and altered mental status. Per EMS patient had surgery for varicose veins (however per PCP patient underwent some surgical debridement for wounds from calciphylaxis) and the patient is prescribed 1 mg of Dilaudid every 6 hours as needed per PCP. EMS stated that the patient was nonresponsive to painful stimuli and reported pinpoint pupils and intermittently administered Narcan and the patient started to wake up. Upon arrival to emergency department patient was still obtunded and responded to additional 0.4 mg of Narcan. Patient was initiated Narcan drip by ED for persistent unresponsiveness. Hospital Course to Date: 08/08: On examination patient has minimal responsiveness to tactile stimuli, remains hypertensive and restarted on p.o. medication. However due to concerns for aspiration NG tube was elected to be placed but eventually patient responded to IV labetalol. Patient remained on room air. Nephrology consulted family for initiation of hemodialysis. Per PCP patient was on peritoneal dialysis for 5 due to development of calciphylaxis patient was switched to ESRD for treatment. Per PCP patient only receives relief from painful lesions with Dilaudid 1 mg p.o. and nortriptyline. Patient was downgraded from CCU to IMCU and is receiving hemodialysis. 08/09: NG tube placed given persistent altered mental status, neurology suggests MRI brain and EEG to consider LP if clinically indicated. UDS ordered. Patient had hemodialysis yesterday and it is planned again today. 08/10: Pending Brain MRI, EEG, and UDS. Patient opens eyes to her name and withdraws to pain which is an improvement. Scheduled for dialysis today. Will continue supportive management. Updated family on patient clinical picture and reason for hospitalization. 08/11: Patient still not alert or oriented. Only withdraws to painful stimuli. Pending Brain MRI, EEG, and UDS. 08/12: Patient more alert and oriented this morning. Can be downgraded to telemetry floor. ST/OT/PT ordered. Will follow. Updated family and spoke with vascular surgeon. Assessment and plan: Neuro: Possible narcotic overdose, acute metabolic encephalopathy, glaucoma -S/p IVP Narcan x2 -S/p Narcan drip -Aspiration/fall precautions -CT head without contrast with no acute abnormalities -Hold home gabapentin, Dilaudid, Zanaflex -Continue home Lantanoprost -Neurology consulted, appreciate recommendations -Neurology recommends MRI brain, eeg and LP - UDS however patient is likely anuric so obtaining a sample would be challenging. -CCM consulted, appreciate recommendations Cardio: h/o HTN, CHF, CAD -Continue home amlodipine, Plavix, clonidine, aspirin, Lasix, hydralazine, Imdur, metoprolol -Blood pressure monitor per protocol -As needed hydralazine and labetalol -04/2021 echocardiogram showed LVEF of 60%, mild concentric LVH, mild MR, trace KS Respiratory: NAD -Supplemental oxygen as needed -Continues SPO2 monitoring -Pulmonary hygiene GI: GERD, hep C -Patient currently n.p.o. due to altered mental status -NGT placed today -PPI: Protonix -Hep C viral RNA pending : ESRD on HD, calciphylaxis, secondary hyperparathyroidism, hypomagnesemia -Nephrology consulted, appreciate recommendations -HD per nephrology -Strict intake and output -Avoid nephrotoxic medications -Renally dose medication -Daily weights -Replete magnesium and recheck in a.m. Endo: h/o DM II -Hemoglobin A1c 4.6 -Accu-Cheks every 4 -Avoid hypoglycemia -SSI if needed Heme: Anemia of chronic disease -Admit H/H 9.6/30.4 -Epogen per nephrology -Trend CBC -Transfuse to hemoglobin less than 7 -Heparin subcu ID: Leukocytosis -Per PCP s/p possible debridement for calciphylaxis wounds to bilateral lower extremities -May be reactive -Monitor for signs and symptoms of infection -Culture if needed The high probability of a clinically significant, sudden or life threatening deterioration of the [multi] system(s) required my full and direct attention, intervention and personal management. The aggregate critical care time was [90] minutes. This time is in addition to time spent performing reported procedures but includes the following: [x] Data Review and interpretation [x] Patient assessment and monitoring of vital signs [x] Documentation [x] Medication orders and management History Interval history: Patient is more alert and awake. She is able to follow commands. She understands that she is here in the hospital. She denies any acute complaints. Had extensive conversation with patient family. They are aware that patient is more alert and oriented. They are concerned that they have been unable to reach care staff and get adequate updates. Patient son complained that no one has called the family to update about patient condition. The ICU providers and I have also talked to the family on several occasions. They are also concerned that the patient's vascular surgeon had attempted to contact the hospital 5 times with no success of reaching a physician. This was the first time I had heard that the patient's vascular surgeon had attempted to call the hospital. I personally callled patient's vascular surgeon Dr. Marie who stated that patient underwent SFA angioplasty. He only requested the patient be on aspirin and Plavix which I reassured him that we had already restarted. He just wanted to ensure that her postop care did not have any complications. He stated that the family had called his office multiple times as they were concerned about their mother being in the hospital. ICU/IMCU RN, care staff, and storage battery charger all notified of conversations and were advised to page me should a physician or the family need to speak with me. All in all, I have reassured the patient's family that the staff has been updating the daily and to the best of their ability especially given the fact that the patient is currently in the IMCU/ICU where multiple sick patients are located. At the end of the conversation, the patient's family were satisfied with our conversation and were up to date on the patient's medical problems. Hospitalist Physical - Physical exam Narrative exam: General appearance: comfortable - EENT EENT: Present: PERRL, mucous membranes moist - Respiratory Respiratory: Present: chest non-tender, lungs clear, rhonchi - Cardiovascular Cardiovascular: Present: regular rate, normal S1, normal S2 Extremities: Present: no peripheral edema bilatateraly, no clubbing, cyanosis - Gastrointestinal Gastrointestinal: Present: normoactive bowel sounds - Integumentary Integumentary: Present: normal - Neurologic Cranial nerve examination: PERRL, EOMI, intact, other (pupils 3 mm reactive sluggish , corneal slightly intact gag is intact , she is braething spontaneously) Detailed motor examination: More alert and oriented. Oriented x4. Follows commands. - Constitutional Vitals: Temp Pulse Resp BP Pulse Ox 97.8 F 99 H 14 158/72 98 08/12/21 04:00 08/12/21 14:45 10/26/21 12:00 08/12/21 14:45 08/12/21 12:00 General appearance: Present: no acute distress, well-nourished HEART Score - HEART Score Age: > 65 Risk factors: > 3 risk factors or hx of atherosclerotic disease Troponin: < normal limit - Critical Actions Critical Actions: 0-3 pts:0.9-1.7%risk of adverse cardiac event.Candidate for discharge Results - Labs CBC & Chem 7: 08/11/21 04:30 08/11/21 04:30 Labs: Laboratory Last Values WBC 14.2 K/mm3 (4.5-11.0) H 08/11/21 04:30 RBC 2.99 M/mm3 (3.65-5.03) L 08/11/21 04:30 Hgb 9.4 gm/dl (10.1-14.3) L 08/11/21 04:30 Hct 29.9 % (30.3-42.9) L 08/11/21 04:30 MCV 100 fl (79-97) H 08/11/21 04:30 MCH 31 pg (28-32) 08/11/21 04:30 MCHC 31 % (30-34) 08/11/21 04:30 RDW 19.3 % (13.2-15.2) H 08/11/21 04:30 Plt Count 343 K/mm3 (140-440) 08/11/21 04:30 Lymph % (Auto) 7.9 % (13.4-35.0) L 08/11/21 04:30 Sac % (Auto) 5.5 % (0.0-7.3) 08/11/21 04:30 Eos % (Auto) 1.3 % (0.0-4.3) 08/11/21 04:30 Baso % (Auto) 0.3 % (0.0-1.8) 08/11/21 04:30 Lymph # (Auto) 1.1 K/mm3 (1.2-5.4) L 08/11/21 04:30 Sac # (Auto) 0.8 K/mm3 (0.0-0.8) 08/11/21 04:30 Eos # (Auto) 0.2 K/mm3 (0.0-0.4) 08/11/21 04:30 Baso # (Auto) 0.0 K/mm3 (0.0-0.1) 08/11/21 04:30 Add Manual Diff Complete 08/08/21 05:11 Total Counted 100 08/08/21 05:11 Seg Neutrophils % 85.0 % (40.0-70.0) H 08/11/21 04:30 Seg Neuts % (Manual) 90.0 % (40.0-70.0) H 08/08/21 05:11 Monocytes % (Manual) 7.0 % (0.0-7.3) 08/08/21 05:11 Eosinophils % (Manual) 3.0 % (0.0-4.3) 08/08/21 05:11 Nucleated RBC % Not Reportable 08/08/21 05:11 Seg Neutrophils # 12.0 K/mm3 (1.8-7.7) H 08/11/21 04:30 Seg Neutrophils # Man 12.4 K/mm3 (1.8-7.7) H 08/08/21 05:11 Band Neutrophils # 0.0 K/mm3 08/08/21 05:11 Lymphocytes # (Manual) 0.0 K/mm3 (1.2-5.4) L 08/08/21 05:11 Abs React Lymphs (Man) 0.0 K/mm3 08/08/21 05:11 Monocytes # (Manual) 1.0 K/mm3 (0.0-0.8) H 08/08/21 05:11 Eosinophils # (Manual) 0.4 K/mm3 (0.0-0.4) 08/08/21 05:11 Basophils # (Manual) 0.0 K/mm3 (0.0-0.1) 08/08/21 05:11 Metamyelocytes # 0.0 K/mm3 08/08/21 05:11 Myelocytes # 0.0 K/mm3 08/08/21 05:11 Promyelocytes # 0.0 K/mm3 08/08/21 05:11 Blast Cells # 0.0 K/mm3 08/08/21 05:11 WBC Morphology Not Reportable 08/08/21 05:11 Hypersegmented Neuts Not Reportable 08/08/21 05:11 Hyposegmented Neuts Not Reportable 08/08/21 05:11 Hypogranular Neuts Not Reportable 08/08/21 05:11 Smudge Cells Not Reportable 08/08/21 05:11 Toxic Granulation 1+ 08/08/21 05:11 Toxic Vacuolation Not Reportable 08/08/21 05:11 Dohle Bodies Not Reportable 08/08/21 05:11 Pelger-Huet Anomaly Not Reportable 08/08/21 05:11 Arianna Rods Not Reportable 08/08/21 05:11 Platelet Estimate Consistent w auto 08/08/21 05:11 Clumped Platelets Not Reportable 08/08/21 05:11 Plt Clumps, EDTA Not Reportable 08/08/21 05:11 Large Platelets Not Reportable 08/08/21 05:11 Giant Platelets Not Reportable 08/08/21 05:11 Platelet Satelliting Not Reportable 08/08/21 05:11 Plt Morphology Comment Not Reportable 08/08/21 05:11 RBC Morphology Not Reportable 08/08/21 05:11 Dimorphic RBCs Not Reportable 08/08/21 05:11 Polychromasia Not Reportable 08/08/21 05:11 Hypochromasia Not Reportable 08/08/21 05:11 Poikilocytosis Not Reportable 08/08/21 05:11 Anisocytosis Not Reportable 08/08/21 05:11 Microcytosis Not Reportable 08/08/21 05:11 Macrocytosis Not Reportable 08/08/21 05:11 Spherocytes Not Reportable 08/08/21 05:11 Pappenheimer Bodies Not Reportable 08/08/21 05:11 Sickle Cells Not Reportable 08/08/21 05:11 Target Cells Not Reportable 08/08/21 05:11 Tear Drop Cells Not Reportable 08/08/21 05:11 Ovalocytes Not Reportable 08/08/21 05:11 Helmet Cells Not Reportable 08/08/21 05:11 Castro-[place] Bodies Not Reportable 08/08/21 05:11 Blair Rings Not Reportable 08/08/21 05:11 Mely Cells Not Reportable 08/08/21 05:11 Bite Cells Not Reportable 08/08/21 05:11 Crenated Cell Not Reportable 08/08/21 05:11 Elliptocytes Not Reportable 08/08/21 05:11 Acanthocytes (Spur) Not Reportable 08/08/21 05:11 Rouleaux Not Reportable 08/08/21 05:11 Hemoglobin C Crystals Not Reportable 08/08/21 05:11 Schistocytes Not Reportable 08/08/21 05:11 Malaria parasites Not Reportable 08/08/21 05:11 Say Bodies Not Reportable 08/08/21 05:11 Hem Pathologist Commnt No 08/08/21 05:11 Sodium 136 mmol/L (137-145) L 08/11/21 04:30 Potassium 3.9 mmol/L (3.6-5.0) 08/11/21 04:30 Chloride 97.5 mmol/L (98-107) L 08/11/21 04:30 Carbon Dioxide 22 mmol/L (22-30) 08/11/21 04:30 Anion Gap 20 mmol/L 08/11/21 04:30 BUN 24 mg/dL (7-17) H 08/11/21 04:30 Creatinine 4.7 mg/dL (0.6-1.2) H 08/11/21 04:30 Estimated GFR 9 ml/min 08/11/21 04:30 BUN/Creatinine Ratio 5 % 08/11/21 04:30 Glucose 175 mg/dL (65-100) H 08/11/21 04:30 POC Glucose 193 mg/dL (70-105) H 08/12/21 11:04 Hemoglobin A1c 4.8 % (4-6) 08/09/21 04:14 Lactic Acid 1.10 mmol/L (0.7-2.0) 08/07/21 14:41 Calcium 8.1 mg/dL (8.4-10.2) L 08/11/21 04:30 Phosphorus 4.20 mg/dL (2.5-4.5) 08/09/21 04:14 Magnesium 2.10 mg/dL (1.7-2.3) 08/10/21 05:38 Total Bilirubin < 0.20 mg/dL (0.1-1.2) 08/11/21 04:30 AST 21 units/L (5-40) 08/11/21 04:30 ALT 7 units/L (7-56) 08/11/21 04:30 Alkaline Phosphatase 160 units/L (35-129) H 08/11/21 04:30 Ammonia 20.0 umol/L (25-60) L 08/09/21 18:35 Total Protein 5.6 g/dL (6.3-8.2) L 08/11/21 04:30 Albumin 2.4 g/dL (3.9-5) L 08/11/21 04:30 Albumin/Globulin Ratio 0.8 % 08/11/21 04:30 Urine Color Lisseth (Yellow) 08/11/21 05:45 Urine Turbidity Cloudy (Clear) 08/11/21 05:45 Urine pH 7.0 (5.0-7.0) 08/11/21 05:45 Ur Specific [place] 1.014 (1.003-1.030) 08/11/21 05:45 Urine Protein >500 mg/dL (Negative) 08/11/21 05:45 Urine Glucose (UA) Neg mg/dL (Negative) 08/11/21 05:45 Urine Ketones Tr mg/dL (Negative) 08/11/21 05:45 Urine Blood Sm (Negative) 08/11/21 05:45 Urine Nitrite Neg (Negative) 08/11/21 05:45 Urine Bilirubin Neg (Negative) 08/11/21 05:45 Urine Urobilinogen < 2.0 mg/dL (<2.0) 08/11/21 05:45 Ur Leukocyte Esterase Sm (Negative) 08/11/21 05:45 Urine WBC (Auto) 91.0 /HPF (0.0-6.0) H 08/11/21 05:45 Urine RBC (Auto) 8.0 /HPF (0.0-6.0) 08/11/21 05:45 U Epithel Cells (Auto) 1.0 /HPF (0-13.0) 08/11/21 05:45 Urine Bacteria (Auto) 2+ /HPF (Negative) 08/11/21 05:45 Ur Transition Epith Cell 1 /HPF 08/11/21 05:45 RBC Casts 1 /LPF 08/11/21 05:45 Urine Mucus Few /HPF 08/10/21 Unknown Urine Opiates Screen Negative 08/09/21 Unknown Urine Methadone Screen Negative 08/09/21 Unknown Ur Barbiturates Screen Positive 08/09/21 Unknown Ur Phencyclidine Scrn Negative 08/09/21 Unknown Ur Amphetamines Screen Negative 08/09/21 Unknown U Benzodiazepines Scrn Positive 08/09/21 Unknown Urine Cocaine Screen Negative 08/09/21 Unknown U Marijuana (THC) Screen Negative 08/09/21 Unknown Drugs of Abuse Note Disclamer 08/09/21 Unknown Hepatitis A IgM Ab Non-reactive (NonReactive) 08/08/21 13:55 Hep Bs Antigen Nonreactive (Negative) 08/08/21 13:55 Hep B Core IgM Ab Non-reactive (NonReactive) 08/08/21 13:55 Hepatitis C Antibody Reactive (NonReactive) A 08/08/21 13:55 Microbiology: Microbiology 08/10/21 Unknown Urine,Clean Catch Urine Culture - Preliminary Noriega/IV: Voiding Method Indwelling Catheter Active Medications - Current Medications Current Medications: Generic Name Dose Route Start Last Admin Trade Name Freq PRN Reason Stop Dose Admin Acetaminophen 650 mg 08/07/21 22:40 Acetaminophen 325 Mg Tab PO Q4H PRN Pain MILD(1-3)/Fever >100.5/PÉREZ Albuterol 2.5 mg 08/07/21 22:48 Albuterol 2.5 Mg/3 Ml Nebu IH Q4HRT PRN Shortness Of Breath Amlodipine Besylate 5 mg 08/09/21 13:15 08/12/21 10:27 Amlodipine 5 Mg Tab FEEDTUBE 5 mg QDAY LADAN Administration Lipase/Protease/Amylase 1 each 08/12/21 12:41 Lipase 10,500/Protease 25,000/Amylase 43,750 (Units) Dr [place] FEEDTUBE PRN PRN For Clogged Feeding Tube Aspirin 81 mg 08/09/21 14:00 08/12/21 10:11 Aspirin 81 Mg Tab Chew FEEDTUBE 81 mg QDAY LADAN Administration Atorvastatin Calcium 40 mg 08/09/21 13:15 08/11/21 22:28 Atorvastatin 40 Mg Tab FEEDTUBE 40 mg QHS LADAN Administration Clonidine HCl 0.2 mg 08/09/21 13:15 08/11/21 22:27 Clonidine 0.2 Mg Tab FEEDTUBE 0.2 mg QHS LADAN Administration Clopidogrel Bisulfate 75 mg 08/09/21 13:15 08/12/21 10:11 Clopidogrel 75 Mg Tab FEEDTUBE 75 mg QDAY LADAN Administration Dextrose 25 ml 08/08/21 17:38 08/10/21 18:04 Dextrose 50% In Water (25gm) 50 Ml Syringe IV 25 ml Q30MIN PRN Administration Hypoglycemia Protocol Heparin Sodium (Porcine) 5,000 unit 08/08/21 10:00 08/12/21 10:26 Heparin 5,000 Unit/1 Ml Vial SUB-Q 5,000 unit Q12HR LADAN Administration Heparin Sodium (Porcine) 3,000 unit 08/09/21 09:40 Heparin 10,000 Units/10 Ml Vial IV TITO PRN hemodialysis Hydralazine HCl 10 mg 08/08/21 04:22 08/08/21 21:05 Hydralazine 20 Mg/1 Ml Inj IV 10 mg Q6H PRN Administration Hypertension Hydralazine HCl 50 mg 08/09/21 13:15 08/12/21 10:11 Hydralazine 25 Mg Tab FEEDTUBE 50 mg BID LADAN Administration Sodium Chloride 100 mls @ 999 mls/hr 08/08/21 13:00 Nacl 0.9% IV TITO PRN Hypotension Isosorbide Dinitrate 10 mg 08/10/21 14:00 08/12/21 14:45 Isosorbide Dinitrate 10 Mg Tab PO 10 mg Q8H LADAN Administration Labetalol HCl 10 mg 08/08/21 08:38 08/08/21 10:00 Labetalol 20 Mg/4 Ml Inj IV 10 mg Q4HR PRN Administration Hypertension Lansoprazole 30 mg 08/09/21 14:00 08/12/21 10:26 Lansoprazole 30 Mg Solutab FEEDTUBE 30 mg QDAY LADAN Administration Latanoprost 1 drops 08/08/21 18:00 08/11/21 17:50 Latanoprost 0.005% Ophth Soln 2.5 Ml OU 1 drops QPM LADAN Administration Metoclopramide HCl 2.5 mg 08/07/21 22:52 Metoclopramide 10 Mg/2 Ml Inj IV Q6H PRN Nausea And Vomiting Metoprolol Tartrate 25 mg 08/09/21 13:15 08/12/21 14:45 Metoprolol Tartrate 25 Mg Tab FEEDTUBE 25 mg Q8HR LADAN Administration Ondansetron HCl 4 mg 08/07/21 22:40 Ondansetron 4 Mg/2 Ml Inj IV Q3H PRN Nausea And Vomiting Simple Syrup 15 ml 08/12/21 12:41 Simple Syrup 15 Ml FEEDTUBE PRN PRN Hypoglycemia Simple Syrup 30 ml 08/12/21 12:41 Simple Syrup 15 Ml FEEDTUBE PRN PRN Hypoglycemia Sodium Bicarbonate 325 mg 08/12/21 12:41 Sodium Bicarbonate 325 Mg Tab FEEDTUBE PRN PRN For Clogged Feeding Tube Sodium Chloride 10 ml 08/08/21 10:00 08/12/21 10:28 Sodium Chloride 0.9% 10 Ml Flush Syringe IV 10 ml BID LADAN Administration Sodium Chloride 10 ml 08/07/21 22:40 Sodium Chloride 0.9% 10 Ml Flush Syringe IV PRN PRN LINE FLUSH Tizanidine HCl 4 mg 08/07/21 22:35 Tizanidine Tab 4 Mg Tab PO BID PRN Muscle Spasm Nutrition/Malnutrition Assess - Dietary Evaluation Nutrition/Malnutrition Findings: Nutrition Notes Start: 08/12/21 12:16 Freq: Status: Active Protocol: Document 08/12/21 12:28 GB (Rec: 08/12/21 12:41 GB [id number]) Nutrition Notes Need for Assessment generated from: manager pmo Initial or Follow up Assessment Current Diagnosis Coronary Artery Disease, Diabetes,Hypertension Other Pertinent Diagnosis ESRD, metabolic encephalopathy (dependent on HD) Current Diet NPO - TF (Nepro @ 35ml/hr Labs/Tests 08/11: glucose 175, BUN 24, creatinine 4.7, Na 136, Ca 8.1 , AlkP 160 Pertinent Medications D5 (PRN) Height 5 ft Weight 69.8 kg [place] Body Weight (kg) 45.45 BMI 30.0 Weight change and time frame 08/07: 65.771kg 08/12: 69.8 kg Change +4.029kg for +6.1% gain . Expect weight fluctuations r/t HD therapy Weight Status Overweight Subjective/Other Information Per MD note: on HD (MWF) started 2 months ago, NG tube, unresponsive Per RN notes: 08/12 residuals 10ml, 08/[address]: Continue TF at goal, only hold if residuals are greater than 140ml/4hr; 210ml/6hr; 280ml/8hrs. RD to write TF orders. Nepro at 35ml/hr meets 75% or greater EEN. Percent of energy/protein needs met: TF: Nepro at 35ml/hr meets 75% or greater EEN. Burn Absent Trauma Absent GI Symptoms None Difficulty In Swallowing Food Allergy No Skin Integrity/Comment dry, loose, redness Current % PO Other Minimum of two criteria No #1 Nutrition Diagnosis Swallowing difficulty Etiology SOB As Evidenced by Signs and Symptoms unresponsive, NGT, need for TF for nourishment Is patient on ventilator? No Is Patient Ambulatory and/or Out of Bed No REE-([facility]-confined to bed) 1361.472 Calculation Used for Recommendations [facility] Additional Notes Protein: 0.8-1.2 g/kg @ 70k-84g Fluids: 1 ml/kcal or per MD Nutrition Intervention Change Diet Order: continue NPO Nutrition Support: Nepro @35ml/hr Flush 100ml/4hrs or per MD Total H2O: TF @goal + flush = 1211ml Kcal 1,512 Protein (gm) 68 Carbohydrates (gm) 135 Fat (gm) 81 Fluid (mL) 611 Goal #1 Continue tolerating TF Nepro at goal 35ml/hr during LOS Follow-Up By: 08/18/21 Additional Comments F/U: TF tolerance, alertness status
--- NOTE | 2021-08-12 16:12 | XRay Report ---
CHEST 1 VIEW INDICATION / CLINICAL INFORMATION: CHEST SORENESS, FRACTURE. COMPARISON: 08/09/2021, 05/02/2021. FINDINGS: SUPPORT DEVICES: Interval placement of right-sided dialysis catheter with tip overlying the superior right atrium, in appropriate position. Partially visualized gastric tube is noted extending inferior to the diaphragm. HEART / MEDIASTINUM: No significant abnormality. LUNGS / PLEURA: No significant pulmonary or pleural abnormality. No pneumothorax. ADDITIONAL FINDINGS: No significant additional findings. IMPRESSION: 1. No acute findings. Signer Name: Ismael Monroy MD Signed: 08/12/2021 4:07 PM Workstation Name: [id number]
[2021-08-12] MEDS: LATANOPROST 0.005% OPHTH SOLN 2.5 ML OU SCH (17:13)
[2021-08-12] MEDS: cloNIDine 0.2 MG TAB FEEDTUBE SCH (22:44)
[2021-08-13] MEDS: ISOSORBIDE DINITRATE 10 MG TAB PO SCH ×3 (06:04→22:48)
[2021-08-13] MEDS: METOPROLOL TARTRATE 25 MG TAB FEEDTUBE SCH ×3 (06:04→22:38)
--- NOTE | 2021-08-13 09:37 | Progress Note ---
Assessment and Plan 1. ESRD: Patient is on maintenance HD, MWF schedule. Per she was switched to HD about 2 months ago 2/2 calciphylaxis. Meds dosage based on GFR. Last outpatient HD 08/04. Hemodialysis: 08/08, 08/09, 08/11. 2. FEN: Hyperkalemia, on HD. Anion-gap metabolic acidosis, on HD. Monitor lytes and volume status. 3. Acute metabolic encephalopathy, POA: 2/2 narcotic OD. S/p Narcan drip. CT head negative. Seen by Neuro. MS is better. Monitor. 4. CAD s/p stent. Plavix, Statin, Aspirin, BB. Echo; EF 60%, LVH. 5. Anemia: Epogen with HD. 6. HTN. 7. Type 2 DM. Subjective: Patient was seen and examined at the bedside. Doing ok. Examination: General appearance: well-developed, well-nourished, appears stated age, not in distress, NG tube HEENT: ATNC, pupils equal Neck: trachea midline Respiratory: Clear to Auscultation Cardiology: regular, S1S2, no murmur Gastrointestinal: normoactive bowel sounds, not tender, PD catheter noted Integumentary: b/l LE dressing noted Neurologic: AO, able to move extremities Ext: trace UE edema : Noriega catheter Hemodialysis access: R IJ tunnel catheter Subjective Date of service: 08/13/21 Principal diagnosis: Unresponsivness Objective - Vital Signs Vital signs: Vital Signs - 12hr 08/12/21 08/13/21 08/13/21 22:00 00:00 00:09 Temperature 98.2 F 97.8 F Pulse Rate 80 Respiratory 18 Rate Respiratory 12 Rate [Right Lower Leg] Blood Pressure 153/66 O2 Sat by Pulse 99 Oximetry 08/13/21 08/13/21 04:46 07:18 Temperature 98.3 F 98.2 F Pulse Rate 91 H 85 Respiratory 18 18 Rate Respiratory Rate [Right Lower Leg] Blood Pressure 165/79 179/81 O2 Sat by Pulse 99 94 Oximetry - Lab 08/11/21 04:30 08/11/21 04:30 Most recent lab results Calcium 8.1 mg/dL (8.4-10.2) L 08/11/21 04:30 Phosphorus 4.20 mg/dL (2.5-4.5) 08/09/21 04:14 Magnesium 2.10 mg/dL (1.7-2.3) 08/10/21 05:38 Medications & Allergies - Medications Allergies/Adverse Reactions: Allergies Penicillins Allergy (Unknown, Verified 08/11/21 17:39) Itching Home Medications: Home Medications Medication Instructions Recorded Confirmed Last Taken Type Albuterol Sulfate [Ventolin Hfa] 2 puff IH Q6H PRN 08/30/18 08/11/21 10/08/18 History HYDROcodone/APAP 7.5-325 [[place] 1 each PO DAILY PRN 08/30/18 08/08/21 10/06/18 History 7.5-325 mg TAB] Hydralazine HCl 50 mg PO BID 08/30/18 08/08/21 10/08/18 History Latanoprost 0.005% 1 drop OU QPM 08/30/18 08/08/21 10/08/18 History tiZANidine [Zanaflex 4mg TAB] 4 mg PO DAILY PRN 08/30/18 08/08/21 10/08/18 History Insulin Lispro [HumaLOG VIAL] 0 units SQ AC #1 vial 10/06/18 08/11/21 10/08/18 Rx Aspirin EC [Halfprin EC] 81 mg PO QDAY #90 tablet 05/02/21 08/08/21 Unknown Rx AtorvaSTATin [Lipitor] 40 mg PO QHS #90 tablet 05/02/21 08/08/21 Unknown Rx Clopidogrel [Plavix] 75 mg PO QDAY #90 tablet 05/02/21 08/08/21 Unknown Rx AtorvaSTATin [Lipitor] 40 mg PO QHS 08/08/21 08/08/21 Unknown History Cinacalcet [Sensipar] 30 mg PO QDAY 08/08/21 08/08/21 Unknown History Furosemide [Lasix TAB] 80 mg PO QDAY 08/08/21 08/08/21 Unknown History HYDROmorphone [Dilaudid] 2 mg PO Q8H PRN 08/08/21 08/08/21 Unknown History Metoprolol Succinate [Toprol Xl] 25 mg PO DAILY 08/08/21 08/08/21 Unknown History Nortriptyline [Pamelor] 25 mg PO DAILY 08/08/21 08/08/21 Unknown History calcitrioL [Rocaltrol] 0.5 mcg PO QDAY 08/08/21 08/08/21 Unknown History calcitrioL [Rocaltrol] 0.5 mcg PO QDAY 08/08/21 08/08/21 Unknown History metOLazone [Zaroxolyn] 5 mg PO QDAY 08/08/21 08/08/21 Unknown History Active Medications: Generic Name Dose Route Start Last Admin Trade Name Freq PRN Reason Stop Dose Admin Acetaminophen 650 mg 08/07/21 22:40 08/12/21 17:15 Acetaminophen 325 Mg Tab PO 650 mg Q4H PRN Administration Pain MILD(1-3)/Fever >100.5/PÉREZ Albuterol 2.5 mg 08/07/21 22:48 Albuterol 2.5 Mg/3 Ml Nebu IH Q4HRT PRN Shortness Of Breath Amlodipine Besylate 5 mg 08/09/21 13:15 08/12/21 10:27 Amlodipine 5 Mg Tab FEEDTUBE 5 mg QDAY LADAN Administration Lipase/Protease/Amylase 1 each 08/12/21 12:41 Lipase 10,500/Protease 25,000/Amylase 43,750 (Units) Dr [place] FEEDTUBE PRN PRN For Clogged Feeding Tube Aspirin 81 mg 08/09/21 14:00 08/12/21 10:11 Aspirin 81 Mg Tab Chew FEEDTUBE 81 mg QDAY LADAN Administration Atorvastatin Calcium 40 mg 08/09/21 13:15 08/12/21 22:43 Atorvastatin 40 Mg Tab FEEDTUBE 40 mg QHS LADAN Administration Clonidine HCl 0.2 mg 08/09/21 13:15 08/12/21 22:44 Clonidine 0.2 Mg Tab FEEDTUBE 0.2 mg QHS LADAN Administration Clopidogrel Bisulfate 75 mg 08/09/21 13:15 08/12/21 10:11 Clopidogrel 75 Mg Tab FEEDTUBE 75 mg QDAY LADAN Administration Dextrose 25 ml 08/08/21 17:38 08/10/21 18:04 Dextrose 50% In Water (25gm) 50 Ml Syringe IV 25 ml Q30MIN PRN Administration Hypoglycemia Protocol Heparin Sodium (Porcine) 5,000 unit 08/08/21 10:00 08/12/21 22:44 Heparin 5,000 Unit/1 Ml Vial SUB-Q 5,000 unit Q12HR LADAN Administration Heparin Sodium (Porcine) 3,000 unit 08/09/21 09:40 Heparin 10,000 Units/10 Ml Vial IV TITO PRN hemodialysis Hydralazine HCl 10 mg 08/08/21 04:22 08/08/21 21:05 Hydralazine 20 Mg/1 Ml Inj IV 10 mg Q6H PRN Administration Hypertension Hydralazine HCl 50 mg 08/09/21 13:15 08/12/21 22:44 Hydralazine 25 Mg Tab FEEDTUBE 50 mg BID LADAN Administration Sodium Chloride 100 mls @ 999 mls/hr 08/08/21 13:00 Nacl 0.9% IV TITO PRN Hypotension Isosorbide Dinitrate 10 mg 08/10/21 14:00 08/13/21 06:04 Isosorbide Dinitrate 10 Mg Tab PO 10 mg Q8H LADAN Administration Labetalol HCl 10 mg 08/08/21 08:38 08/08/21 10:00 Labetalol 20 Mg/4 Ml Inj IV 10 mg Q4HR PRN Administration Hypertension Lansoprazole 30 mg 08/09/21 14:00 08/12/21 10:26 Lansoprazole 30 Mg Solutab FEEDTUBE 30 mg QDAY LADAN Administration Latanoprost 1 drops 08/08/21 18:00 08/12/21 17:13 Latanoprost 0.005% Ophth Soln 2.5 Ml OU 1 drops QPM LADAN Administration Metoclopramide HCl 2.5 mg 08/07/21 22:52 Metoclopramide 10 Mg/2 Ml Inj IV Q6H PRN Nausea And Vomiting Metoprolol Tartrate 25 mg 08/09/21 13:15 08/13/21 06:04 Metoprolol Tartrate 25 Mg Tab FEEDTUBE 25 mg Q8HR LADAN Administration Ondansetron HCl 4 mg 08/07/21 22:40 Ondansetron 4 Mg/2 Ml Inj IV Q3H PRN Nausea And Vomiting Simple Syrup 15 ml 08/12/21 12:41 Simple Syrup 15 Ml FEEDTUBE PRN PRN Hypoglycemia Simple Syrup 30 ml 08/12/21 12:41 Simple Syrup 15 Ml FEEDTUBE PRN PRN Hypoglycemia Sodium Bicarbonate 325 mg 08/12/21 12:41 Sodium Bicarbonate 325 Mg Tab FEEDTUBE PRN PRN For Clogged Feeding Tube Sodium Chloride 10 ml 08/08/21 10:00 08/12/21 22:53 Sodium Chloride 0.9% 10 Ml Flush Syringe IV 10 ml BID LADAN Administration Sodium Chloride 10 ml 08/07/21 22:40 Sodium Chloride 0.9% 10 Ml Flush Syringe IV PRN PRN LINE FLUSH Tizanidine HCl 4 mg 08/07/21 22:35 Tizanidine Tab 4 Mg Tab PO BID PRN Muscle Spasm
[2021-08-13] MEDS: ASPIRIN 81 MG TAB CHEW FEEDTUBE SCH (10:05)
[2021-08-13] MEDS: amLODIPine 5 MG TAB FEEDTUBE SCH (10:05)
[2021-08-13] MEDS: hydrALAZINE 25 MG TAB FEEDTUBE SCH ×2 (10:05→22:38)
[2021-08-13] MEDS: HEPARIN 5,000 UNIT/1 ML VIAL SUB-Q SCH ×2 (10:05→22:38)
[2021-08-13] MEDS: CLOPIDOGREL 75 MG TAB FEEDTUBE SCH (10:05)
[2021-08-13] MEDS: LANSOPRAZOLE 30 MG SOLUTAB FEEDTUBE SCH (10:06)
--- NOTE | 2021-08-13 11:54 | Progress Note ---
Assessment and Plan Assessment and plan: HPI: This is a 70-year-old female with HTN, CHF, DM, ESRD on HD, calciphylaxis, secondary hypoparathyroidism, neuropathy, gastroparesis who presented to the hospital on 08/07 via EMS for decreased responsiveness and altered mental status. Per EMS patient had surgery for varicose veins (however per PCP patient underwent some surgical debridement for wounds from calciphylaxis) and the patient is prescribed 1 mg of Dilaudid every 6 hours as needed per PCP. EMS stated that the patient was nonresponsive to painful stimuli and reported pinpoint pupils and intermittently administered Narcan and the patient started to wake up. Upon arrival to emergency department patient was still obtunded and responded to additional 0.4 mg of Narcan. Patient was initiated Narcan drip by ED for persistent unresponsiveness. Hospital Course to Date: 08/08: On examination patient has minimal responsiveness to tactile stimuli, remains hypertensive and restarted on p.o. medication. However due to concerns for aspiration NG tube was elected to be placed but eventually patient responded to IV labetalol. Patient remained on room air. Nephrology consulted family for initiation of hemodialysis. Per PCP patient was on peritoneal dialysis for 5 due to development of calciphylaxis patient was switched to ESRD for treatment. Per PCP patient only receives relief from painful lesions with Dilaudid 1 mg p.o. and nortriptyline. Patient was downgraded from CCU to IMCU and is receiving hemodialysis. 08/09: NG tube placed given persistent altered mental status, neurology suggests MRI brain and EEG to consider LP if clinically indicated. UDS ordered. Patient had hemodialysis yesterday and it is planned again today. 08/10: Pending Brain MRI, EEG, and UDS. Patient opens eyes to her name and withdraws to pain which is an improvement. Scheduled for dialysis today. Will continue supportive management. Updated family on patient clinical picture and reason for hospitalization. 08/11: Patient still not alert or oriented. Only withdraws to painful stimuli. Pending Brain MRI, EEG, and UDS. 08/12: Patient more alert and oriented this morning. Can be downgraded to telemetry floor. ST/OT/PT ordered. Will follow. Updated family and spoke with vascular surgeon. 08/13: Awaiting final physical therapy recommendations. Awaiting speech therapy recommendations. If patient passes speech evaluation can have diet ordered. Discussed today's care plan with the patient's . Likely discharge in next 24 to 48 hours. Assessment and plan: Neuro: Possible narcotic overdose, acute metabolic encephalopathy, glaucoma -S/p IVP Narcan x2 -S/p Narcan drip -Aspiration/fall precautions -CT head without contrast with no acute abnormalities -Hold home gabapentin, Dilaudid, Zanaflex -Continue home Lantanoprost -Neurology consulted, appreciate recommendations -Neurology recommends MRI brain, eeg and LP - UDS however patient is likely anuric so obtaining a sample would be challenging. -CCM consulted, appreciate recommendations Cardio: h/o HTN, CHF, CAD -Continue home amlodipine, Plavix, clonidine, aspirin, Lasix, hydralazine, Imdur, metoprolol -Blood pressure monitor per protocol -As needed hydralazine and labetalol -04/2021 echocardiogram showed LVEF of 60%, mild concentric LVH, mild MR, trace [place] Respiratory: NAD -Supplemental oxygen as needed -Continues SPO2 monitoring -Pulmonary hygiene GI: GERD, hep C -Patient n.p.o. due to altered mental status -NGT placed -ST ordered - pending st eval, if patient passes ,can d/c NGT. -PPI: Protonix -Hep C viral RNA pending : ESRD on HD, calciphylaxis, secondary hyperparathyroidism, hypomagnesemia -Nephrology consulted, appreciate recommendations -HD per nephrology -Strict intake and output -Avoid nephrotoxic medications -Renally dose medication -Daily weights -Replete magnesium and recheck in a.m. Endo: h/o DM II -Hemoglobin A1c 4.6 -Accu-Cheks every 4 -Avoid hypoglycemia -SSI if needed Heme: Anemia of chronic disease -Admit H/H 9.6/30.4 -Epogen per nephrology -Trend CBC -Transfuse to hemoglobin less than 7 -Heparin subcu ID: Leukocytosis -Per PCP s/p possible debridement for calciphylaxis wounds to bilateral lower extremities -May be reactive -Monitor for signs and symptoms of infection -Culture if needed History Interval history: No acute complaints this morning. was present on encounter. Answered all questions to his satisfaction. I discussed today's care plan with the patient and her as well as disposition. Hospitalist Physical - Physical exam Narrative exam: General appearance: comfortable - EENT EENT: Present: PERRL, mucous membranes moist - Respiratory Respiratory: Present: chest non-tender, lungs clear, rhonchi - Cardiovascular Cardiovascular: Present: regular rate, normal S1, normal S2 Extremities: Present: no peripheral edema bilatateraly, no clubbing, cyanosis - Gastrointestinal Gastrointestinal: Present: normoactive bowel sounds - Integumentary Integumentary: Present: normal - Neurologic Cranial nerve examination: PERRL, EOMI, intact, other (pupils 3 mm reactive sluggish , corneal slightly intact gag is intact , she is braething spontaneously) Detailed motor examination: More alert and oriented. Oriented x4. Follows commands. - Constitutional Vitals: Temp Pulse Resp BP Pulse Ox 98.2 F 85 18 179/81 94 08/13/21 07:18 08/13/21 07:18 08/13/21 07:18 08/13/21 07:18 08/13/21 07:18 General appearance: Present: no acute distress, well-nourished HEART Score - HEART Score Age: > 65 Risk factors: > 3 risk factors or hx of atherosclerotic disease Troponin: < normal limit - Critical Actions Critical Actions: 0-3 pts:0.9-1.7%risk of adverse cardiac event.Candidate for discharge Results - Labs CBC & Chem 7: 08/11/21 04:30 08/11/21 04:30 Labs: Laboratory Last Values WBC 14.2 K/mm3 (4.5-11.0) H 08/11/21 04:30 RBC 2.99 M/mm3 (3.65-5.03) L 08/11/21 04:30 Hgb 9.4 gm/dl (10.1-14.3) L 08/11/21 04:30 Hct 29.9 % (30.3-42.9) L 08/11/21 04:30 MCV 100 fl (79-97) H 08/11/21 04:30 MCH 31 pg (28-32) 08/11/21 04:30 MCHC 31 % (30-34) 08/11/21 04:30 RDW 19.3 % (13.2-15.2) H 08/11/21 04:30 Plt Count 343 K/mm3 (140-440) 08/11/21 04:30 Lymph % (Auto) 7.9 % (13.4-35.0) L 08/11/21 04:30 Brule % (Auto) 5.5 % (0.0-7.3) 08/11/21 04:30 Eos % (Auto) 1.3 % (0.0-4.3) 08/11/21 04:30 Baso % (Auto) 0.3 % (0.0-1.8) 08/11/21 04:30 Lymph # (Auto) 1.1 K/mm3 (1.2-5.4) L 08/11/21 04:30 Brule # (Auto) 0.8 K/mm3 (0.0-0.8) 08/11/21 04:30 Eos # (Auto) 0.2 K/mm3 (0.0-0.4) 08/11/21 04:30 Baso # (Auto) 0.0 K/mm3 (0.0-0.1) 08/11/21 04:30 Add Manual Diff Complete 08/08/21 05:11 Total Counted 100 08/08/21 05:11 Seg Neutrophils % 85.0 % (40.0-70.0) H 08/11/21 04:30 Seg Neuts % (Manual) 90.0 % (40.0-70.0) H 08/08/21 05:11 Monocytes % (Manual) 7.0 % (0.0-7.3) 08/08/21 05:11 Eosinophils % (Manual) 3.0 % (0.0-4.3) 08/08/21 05:11 Nucleated RBC % Not Reportable 08/08/21 05:11 Seg Neutrophils # 12.0 K/mm3 (1.8-7.7) H 08/11/21 04:30 Seg Neutrophils # Man 12.4 K/mm3 (1.8-7.7) H 08/08/21 05:11 Band Neutrophils # 0.0 K/mm3 08/08/21 05:11 Lymphocytes # (Manual) 0.0 K/mm3 (1.2-5.4) L 08/08/21 05:11 Abs React Lymphs (Man) 0.0 K/mm3 08/08/21 05:11 Monocytes # (Manual) 1.0 K/mm3 (0.0-0.8) H 08/08/21 05:11 Eosinophils # (Manual) 0.4 K/mm3 (0.0-0.4) 08/08/21 05:11 Basophils # (Manual) 0.0 K/mm3 (0.0-0.1) 08/08/21 05:11 Metamyelocytes # 0.0 K/mm3 08/08/21 05:11 Myelocytes # 0.0 K/mm3 08/08/21 05:11 Promyelocytes # 0.0 K/mm3 08/08/21 05:11 Blast Cells # 0.0 K/mm3 08/08/21 05:11 WBC Morphology Not Reportable 08/08/21 05:11 Hypersegmented Neuts Not Reportable 08/08/21 05:11 Hyposegmented Neuts Not Reportable 08/08/21 05:11 Hypogranular Neuts Not Reportable 08/08/21 05:11 Smudge Cells Not Reportable 08/08/21 05:11 Toxic Granulation 1+ 08/08/21 05:11 Toxic Vacuolation Not Reportable 08/08/21 05:11 Dohle Bodies Not Reportable 08/08/21 05:11 Pelger-Huet Anomaly Not Reportable 08/08/21 05:11 Arianna Rods Not Reportable 08/08/21 05:11 Platelet Estimate Consistent w auto 08/08/21 05:11 Clumped Platelets Not Reportable 08/08/21 05:11 Plt Clumps, EDTA Not Reportable 08/08/21 05:11 Large Platelets Not Reportable 08/08/21 05:11 Giant Platelets Not Reportable 08/08/21 05:11 Platelet Satelliting Not Reportable 08/08/21 05:11 Plt Morphology Comment Not Reportable 08/08/21 05:11 RBC Morphology Not Reportable 08/08/21 05:11 Dimorphic RBCs Not Reportable 08/08/21 05:11 Polychromasia Not Reportable 08/08/21 05:11 Hypochromasia Not Reportable 08/08/21 05:11 Poikilocytosis Not Reportable 08/08/21 05:11 Anisocytosis Not Reportable 08/08/21 05:11 Microcytosis Not Reportable 08/08/21 05:11 Macrocytosis Not Reportable 08/08/21 05:11 Spherocytes Not Reportable 08/08/21 05:11 Pappenheimer Bodies Not Reportable 08/08/21 05:11 Sickle Cells Not Reportable 08/08/21 05:11 Target Cells Not Reportable 08/08/21 05:11 Tear Drop Cells Not Reportable 08/08/21 05:11 Ovalocytes Not Reportable 08/08/21 05:11 Helmet Cells Not Reportable 08/08/21 05:11 [place] Bodies Not Reportable 08/08/21 05:11 [place] Rings Not Reportable 08/08/21 05:11 [place] Cells Not Reportable 08/08/21 05:11 Bite Cells Not Reportable 08/08/21 05:11 Crenated Cell Not Reportable 08/08/21 05:11 Elliptocytes Not Reportable 08/08/21 05:11 Acanthocytes (Spur) Not Reportable 08/08/21 05:11 Rouleaux Not Reportable 08/08/21 05:11 Hemoglobin C Crystals Not Reportable 08/08/21 05:11 Schistocytes Not Reportable 08/08/21 05:11 Malaria parasites Not Reportable 08/08/21 05:11 Say Bodies Not Reportable 08/08/21 05:11 Hem Pathologist Commnt No 08/08/21 05:11 Sodium 136 mmol/L (137-145) L 08/11/21 04:30 Potassium 3.9 mmol/L (3.6-5.0) 08/11/21 04:30 Chloride 97.5 mmol/L (98-107) L 08/11/21 04:30 Carbon Dioxide 22 mmol/L (22-30) 08/11/21 04:30 Anion Gap 20 mmol/L 08/11/21 04:30 BUN 24 mg/dL (7-17) H 08/11/21 04:30 Creatinine 4.7 mg/dL (0.6-1.2) H 08/11/21 04:30 Estimated GFR 9 ml/min 08/11/21 04:30 BUN/Creatinine Ratio 5 % 08/11/21 04:30 Glucose 175 mg/dL (65-100) H 08/11/21 04:30 POC Glucose 168 mg/dL (70-105) H 08/12/21 21:38 Hemoglobin A1c 4.8 % (4-6) 08/09/21 04:14 Lactic Acid 1.10 mmol/L (0.7-2.0) 08/07/21 14:41 Calcium 8.1 mg/dL (8.4-10.2) L 08/11/21 04:30 Phosphorus 4.20 mg/dL (2.5-4.5) 08/09/21 04:14 Magnesium 2.10 mg/dL (1.7-2.3) 08/10/21 05:38 Total Bilirubin < 0.20 mg/dL (0.1-1.2) 08/11/21 04:30 AST 21 units/L (5-40) 08/11/21 04:30 ALT 7 units/L (7-56) 08/11/21 04:30 Alkaline Phosphatase 160 units/L (35-129) H 08/11/21 04:30 Ammonia 20.0 umol/L (25-60) L 08/09/21 18:35 Total Protein 5.6 g/dL (6.3-8.2) L 08/11/21 04:30 Albumin 2.4 g/dL (3.9-5) L 08/11/21 04:30 Albumin/Globulin Ratio 0.8 % 08/11/21 04:30 Urine Color Lisseth (Yellow) 08/11/21 05:45 Urine Turbidity Cloudy (Clear) 08/11/21 05:45 Urine pH 7.0 (5.0-7.0) 08/11/21 05:45 Ur Specific Pinch 1.014 (1.003-1.030) 08/11/21 05:45 Urine Protein >500 mg/dL (Negative) 08/11/21 05:45 Urine Glucose (UA) Neg mg/dL (Negative) 08/11/21 05:45 Urine Ketones Tr mg/dL (Negative) 08/11/21 05:45 Urine Blood Sm (Negative) 08/11/21 05:45 Urine Nitrite Neg (Negative) 08/11/21 05:45 Urine Bilirubin Neg (Negative) 08/11/21 05:45 Urine Urobilinogen < 2.0 mg/dL (<2.0) 08/11/21 05:45 Ur Leukocyte Esterase Sm (Negative) 08/11/21 05:45 Urine WBC (Auto) 91.0 /HPF (0.0-6.0) H 08/11/21 05:45 Urine RBC (Auto) 8.0 /HPF (0.0-6.0) 08/11/21 05:45 U Epithel Cells (Auto) 1.0 /HPF (0-13.0) 08/11/21 05:45 Urine Bacteria (Auto) 2+ /HPF (Negative) 08/11/21 05:45 Ur Transition Epith Cell 1 /HPF 08/11/21 05:45 RBC Casts 1 /LPF 08/11/21 05:45 Urine Mucus Few /HPF 08/10/21 Unknown Urine Opiates Screen Negative 08/09/21 Unknown Urine Methadone Screen Negative 08/09/21 Unknown Ur Barbiturates Screen Positive 08/09/21 Unknown Ur Phencyclidine Scrn Negative 08/09/21 Unknown Ur Amphetamines Screen Negative 08/09/21 Unknown U Benzodiazepines Scrn Positive 08/09/21 Unknown Urine Cocaine Screen Negative 08/09/21 Unknown U Marijuana (THC) Screen Negative 08/09/21 Unknown Drugs of Abuse Note Disclamer 08/09/21 Unknown Hepatitis A IgM Ab Non-reactive (NonReactive) 08/08/21 13:55 Hep Bs Antigen Nonreactive (Negative) 08/08/21 13:55 Hep B Core IgM Ab Non-reactive (NonReactive) 08/08/21 13:55 Hepatitis C Antibody Reactive (NonReactive) A 08/08/21 13:55 Microbiology: Microbiology 08/10/21 Unknown Urine,Clean Catch Urine Culture - Final Noriega/IV: Voiding Method Indwelling Catheter Active Medications - Current Medications Current Medications: Generic Name Dose Route Start Last Admin Trade Name Freq PRN Reason Stop Dose Admin Acetaminophen 650 mg 08/07/21 22:40 08/12/21 17:15 Acetaminophen 325 Mg Tab PO 650 mg Q4H PRN Administration Pain MILD(1-3)/Fever >100.5/PÉREZ Albuterol 2.5 mg 08/07/21 22:48 Albuterol 2.5 Mg/3 Ml Nebu IH Q4HRT PRN Shortness Of Breath Amlodipine Besylate 5 mg 08/09/21 13:15 08/13/21 10:05 Amlodipine 5 Mg Tab FEEDTUBE 5 mg QDAY LADAN Administration Lipase/Protease/Amylase 1 each 08/12/21 12:41 Lipase 10,500/Protease 25,000/Amylase 43,750 (Units) Dr [place] FEEDTUBE PRN PRN For Clogged Feeding Tube Aspirin 81 mg 08/09/21 14:00 08/13/21 10:05 Aspirin 81 Mg Tab Chew FEEDTUBE 81 mg QDAY LADAN Administration Atorvastatin Calcium 40 mg 08/09/21 13:15 08/12/21 22:43 Atorvastatin 40 Mg Tab FEEDTUBE 40 mg QHS LADAN Administration Clonidine HCl 0.2 mg 08/09/21 13:15 08/12/21 22:44 Clonidine 0.2 Mg Tab FEEDTUBE 0.2 mg QHS LADAN Administration Clopidogrel Bisulfate 75 mg 08/09/21 13:15 08/13/21 10:05 Clopidogrel 75 Mg Tab FEEDTUBE 75 mg QDAY LADAN Administration Dextrose 25 ml 08/08/21 17:38 08/10/21 18:04 Dextrose 50% In Water (25gm) 50 Ml Syringe IV 25 ml Q30MIN PRN Administration Hypoglycemia Protocol Heparin Sodium (Porcine) 5,000 unit 08/08/21 10:00 08/13/21 10:05 Heparin 5,000 Unit/1 Ml Vial SUB-Q 5,000 unit Q12HR LADAN Administration Heparin Sodium (Porcine) 3,000 unit 08/09/21 09:40 Heparin 10,000 Units/10 Ml Vial IV TITO PRN hemodialysis Hydralazine HCl 10 mg 08/08/21 04:22 08/08/21 21:05 Hydralazine 20 Mg/1 Ml Inj IV 10 mg Q6H PRN Administration Hypertension Hydralazine HCl 50 mg 08/09/21 13:15 08/13/21 10:05 Hydralazine 25 Mg Tab FEEDTUBE 50 mg BID LADAN Administration Sodium Chloride 100 mls @ 999 mls/hr 08/08/21 13:00 Nacl 0.9% IV TITO PRN Hypotension Isosorbide Dinitrate 10 mg 08/10/21 14:00 08/13/21 06:04 Isosorbide Dinitrate 10 Mg Tab PO 10 mg Q8H LADAN Administration Labetalol HCl 10 mg 08/08/21 08:38 08/08/21 10:00 Labetalol 20 Mg/4 Ml Inj IV 10 mg Q4HR PRN Administration Hypertension Lansoprazole 30 mg 08/09/21 14:00 08/13/21 10:06 Lansoprazole 30 Mg Solutab FEEDTUBE 30 mg QDAY LADAN Administration Latanoprost 1 drops 08/08/21 18:00 08/12/21 17:13 Latanoprost 0.005% Ophth Soln 2.5 Ml OU 1 drops QPM LADAN Administration Metoclopramide HCl 2.5 mg 08/07/21 22:52 Metoclopramide 10 Mg/2 Ml Inj IV Q6H PRN Nausea And Vomiting Metoprolol Tartrate 25 mg 08/09/21 13:15 08/13/21 06:04 Metoprolol Tartrate 25 Mg Tab FEEDTUBE 25 mg Q8HR LADAN Administration Ondansetron HCl 4 mg 08/07/21 22:40 Ondansetron 4 Mg/2 Ml Inj IV Q3H PRN Nausea And Vomiting Simple Syrup 15 ml 08/12/21 12:41 Simple Syrup 15 Ml FEEDTUBE PRN PRN Hypoglycemia Simple Syrup 30 ml 08/12/21 12:41 Simple Syrup 15 Ml FEEDTUBE PRN PRN Hypoglycemia Sodium Bicarbonate 325 mg 08/12/21 12:41 Sodium Bicarbonate 325 Mg Tab FEEDTUBE PRN PRN For Clogged Feeding Tube Sodium Chloride 10 ml 08/08/21 10:00 08/13/21 10:06 Sodium Chloride 0.9% 10 Ml Flush Syringe IV 10 ml BID LADAN Administration Sodium Chloride 10 ml 08/07/21 22:40 Sodium Chloride 0.9% 10 Ml Flush Syringe IV PRN PRN LINE FLUSH Tizanidine HCl 4 mg 08/07/21 22:35 Tizanidine Tab 4 Mg Tab PO BID PRN Muscle Spasm Nutrition/Malnutrition Assess - Dietary Evaluation Nutrition/Malnutrition Findings: Nutrition Notes Start: 08/12/21 12:16 Freq: Status: Active Protocol: Document 08/12/21 12:28 GB (Rec: 08/12/21 12:41 GB [id number]) Nutrition Notes Need for Assessment generated from: technical editor Initial or Follow up Assessment Current Diagnosis Coronary Artery Disease, Diabetes,Hypertension Other Pertinent Diagnosis ESRD, metabolic encephalopathy (dependent on HD) Current Diet NPO - TF (Nepro @ 35ml/hr Labs/Tests 08/11: glucose 175, BUN 24, creatinine 4.7, Na 136, Ca 8.1 , AlkP 160 Pertinent Medications D5 (PRN) Height 5 ft Weight 69.8 kg [place] Body Weight (kg) 45.45 BMI 30.0 Weight change and time frame 08/07: 65.771kg 08/12: 69.8 kg Change +4.029kg for +6.1% gain . Expect weight fluctuations r/t HD therapy Weight Status Overweight Subjective/Other Information Per MD note: on HD (MWF) started 2 months ago, NG tube, unresponsive Per RN notes: 08/12 residuals 10ml, 08/[address]: Continue TF at goal, only hold if residuals are greater than 140ml/4hr; 210ml/6hr; 280ml/8hrs. RD to write TF orders. Nepro at 35ml/hr meets 75% or greater EEN. Percent of energy/protein needs met: TF: Nepro at 35ml/hr meets 75% or greater EEN. Burn Absent Trauma Absent GI Symptoms None Difficulty In Swallowing Food Allergy No Skin Integrity/Comment dry, loose, redness Current % PO Other Minimum of two criteria No #1 Nutrition Diagnosis Swallowing difficulty Etiology SOB As Evidenced by Signs and Symptoms unresponsive, NGT, need for TF for nourishment Is patient on ventilator? No Is Patient Ambulatory and/or Out of Bed No REE-([facility]-confined to bed) 1361.472 Calculation Used for Recommendations [facility] Additional Notes Protein: 0.8-1.2 g/kg @ 70k-84g Fluids: 1 ml/kcal or per Nutrition Intervention Change Diet Order: continue NPO Nutrition Support: Nepro @35ml/hr Flush 100ml/4hrs or per MD Total H2O: TF @goal + flush = 1211ml Kcal 1,512 Protein (gm) 68 Carbohydrates (gm) 135 Fat (gm) 81 Fluid (mL) 611 Goal #1 Continue tolerating TF Nepro at goal 35ml/hr during LOS Follow-Up By: 08/18/21 Additional Comments F/U: TF tolerance, alertness status
[2021-08-13] MEDS: LATANOPROST 0.005% OPHTH SOLN 2.5 ML OU SCH (17:07)
[2021-08-13] MEDS: cloNIDine 0.2 MG TAB FEEDTUBE SCH (22:37)
[2021-08-14] MEDS: hydrALAZINE 20 MG/1 ML INJ IV PRN (05:11)
[2021-08-14] MEDS: ONDANSETRON 4 MG/2 ML INJ IV PRN ×2 (05:11→05:13)
[2021-08-14] MEDS: METOPROLOL TARTRATE 25 MG TAB FEEDTUBE SCH (05:12)
[2021-08-14] MEDS: ISOSORBIDE DINITRATE 10 MG TAB PO SCH (05:13)
[2021-08-14 08:20] VITALS: BP 140/60
--- NOTE | 2021-08-14 08:59 | Discharge Summary ---
Providers - Providers Date of Admission: 08/07/21 19:03 Date of discharge: 08/14/21 Attending physician: ASHLEE GREEN MD 08/08/21 06:55 Consult to Physician [CONS] Routine Comment: Consulting Provider: SANTINO CHARLES Physician Instructions: Reason For Exam: ESRD 08/09/21 08:50 Consult to Physician [CONS] Routine Comment: Consulting Provider: BHAVYA ZARATE Physician Instructions: Reason For Exam: acute encephalopathy 08/11/21 06:35 Consult to Wound/ET Nurse [CONS] Urgent Reason For Exam: wound eval 08/11/21 11:37 Occupational Therapy Evaluate and Treat [CONS] Routine Comment: Reason For Exam: Debility Physical Therapy Evaluation and Treat [CONS] Routine Comment: Reason For Exam: Debility 08/12/21 19:49 Speech Therapy Evaluation and Treat [CONS] Routine Reason For Exam: Eval and treat Speech Therapy Evaluation and Treat [CONS] Routine Reason For Exam: swallow eval and tx Primary care physician: [employer] Hospitalization Reason for admission: ams Condition: Stable Hospital course: HPI: This is a 70-year-old female with HTN, CHF, DM, ESRD on HD, calciphylaxis, secondary hypoparathyroidism, neuropathy, gastroparesis who presented to the hospital on 08/07 via EMS for decreased responsiveness and altered mental status. Per EMS patient had surgery for varicose veins (however per PCP patient underwent some surgical debridement for wounds from calciphylaxis) and the patient is prescribed 1 mg of Dilaudid every 6 hours as needed per PCP. EMS stated that the patient was nonresponsive to painful stimuli and reported pinpoint pupils and intermittently administered Narcan and the patient started to wake up. Upon arrival to emergency department patient was still obtunded and responded to additional 0.4 mg of Narcan. Patient was initiated Narcan drip by ED for persistent unresponsiveness. Hospital Course to Date: 08/08: On examination patient has minimal responsiveness to tactile stimuli, remains hypertensive and restarted on p.o. medication. However due to concerns for aspiration NG tube was elected to be placed but eventually patient responded to IV labetalol. Patient remained on room air. Nephrology consulted family for initiation of hemodialysis. Per PCP patient was on peritoneal dialysis for 5 due to development of calciphylaxis patient was switched to ESRD for treatment. Per PCP patient only receives relief from painful lesions with Dilaudid 1 mg p.o. and nortriptyline. Patient was downgraded from CCU to IMCU and is receiving hemodialysis. 08/09: NG tube placed given persistent altered mental status, neurology suggests MRI brain and EEG to consider LP if clinically indicated. UDS ordered. Patient had hemodialysis yesterday and it is planned again today. 08/10: Pending Brain MRI, EEG, and UDS. Patient opens eyes to her name and withdraws to pain which is an improvement. Scheduled for dialysis today. Will continue supportive management. Updated family on patient clinical picture and reason for hospitalization. 08/11: Patient still not alert or oriented. Only withdraws to painful stimuli. Pending Brain MRI, EEG, and UDS. 08/12: Patient more alert and oriented this morning. Can be downgraded to telemetry floor. ST/OT/PT ordered. Will follow. Updated family and spoke with vascular surgeon. 08/13: Awaiting final physical therapy recommendations. Awaiting speech therapy recommendations. If patient passes speech evaluation can have diet ordered. Discussed today's care plan with the patient's . Likely discharge in next 24 to 48 hours. 08/14: Passed speech eval, cleared for diet per speech. adv as tolerated. Patient can be discharged home today with [facility] physical therapy. Patient advised to follow up with primary care doctor in 3-5 days to discuss hospitalization. She is also advised to follow up with vascular surgeon for follow up. She was further counseled on avoiding opioid narcotics as this was the reason for her admission and could potentially cause her to become confused/encephalopathic again given that she is a dialysis patient. Refills for Aspirin, atorvastatin, hydralazine, plavix, and amlodipine sent to patient pharmacy. Assessment and plan: Neuro: Possible narcotic overdose, acute metabolic encephalopathy, glaucoma -S/p IVP Narcan x2 -S/p Narcan drip -Aspiration/fall precautions -CT head without contrast with no acute abnormalities -Hold home gabapentin, Dilaudid, Zanaflex -Continue home Lantanoprost -Neurology consulted, appreciate recommendations -Neurology recommends MRI brain, eeg and LP - UDS however patient is likely anuric so obtaining a sample would be challengin g. -[facility] consulted, appreciate recommendations Cardio: h/o HTN, CHF, CAD -Continue home amlodipine, Plavix, clonidine, aspirin, Lasix, hydralazine, Imdur, metoprolol -Blood pressure monitor per protocol -As needed hydralazine and labetalol -04/2021 echocardiogram showed LVEF of 60%, mild concentric LVH, mild MR, trace MN Respiratory: NAD -Supplemental oxygen as needed -Continues SPO2 monitoring -Pulmonary hygiene GI: GERD, hep C -Patient n.p.o. due to altered mental status -NGT placed -ST ordered - pending st eval, if patient passes ,can d/c NGT. -PPI: Protonix -Hep C viral RNA pending : ESRD on HD, calciphylaxis, secondary hyperparathyroidism, hypomagnesemia -Nephrology consulted, appreciate recommendations -HD per nephrology -Strict intake and output -Avoid nephrotoxic medications -Renally dose medication -Daily weights -Replete magnesium and recheck in a.m. Endo: h/o DM II -Hemoglobin A1c 4.6 -Accu-Cheks every 4 -Avoid hypoglycemia -SSI if needed Heme: Anemia of chronic disease -Admit H/H 9.6/30.4 -Epogen per nephrology -Trend CBC -Transfuse to hemoglobin less than 7 -Heparin subcu ID: Leukocytosis -Per PCP s/p possible debridement for calciphylaxis wounds to bilateral lower extremities -May be reactive -Monitor for signs and symptoms of infection -Culture if needed Disposition: 01 HOME / SELF CARE / HOMELESS Final Discharge Diagnosis (Prints w/discharge instructions): acute metabolic encephalopathy Time spent for discharge: 35 - Discharge Diagnoses (1) Acute metabolic encephalopathy Status: Acute (2) Narcotic overdose Status: Acute Qualifiers: Encounter type: initial encounter Injury intent: accidental or unintentional Qualified Code(s): T40.601A - Poisoning by unspecified narcotics, accidental (unintentional), initial encounter (3) Coronary artery disease Status: Chronic Qualifiers: Coronary Disease-Associated Artery/Lesion type: [place] artery [place] vs. transplanted heart: [place] heart (4) ESRD (end stage renal disease) Status: Chronic Core Measure Documentation - Palliative Care Palliative Care/ Comfort Measures: Not Applicable - Core Measures Any of the following diagnoses?: none Exam - Physical Exam Narrative exam: General appearance: comfortable - EENT EENT: Present: PERRL, mucous membranes moist - Respiratory Respiratory: Present: chest non-tender, lungs clear, rhonchi - Cardiovascular Cardiovascular: Present: regular rate, normal S1, normal S2 Extremities: Present: no peripheral edema bilatateraly, no clubbing, cyanosis - Gastrointestinal Gastrointestinal: Present: normoactive bowel sounds - Integumentary Integumentary: Present: normal - Neurologic Cranial nerve examination: PERRL, EOMI, intact, other Improved. Detailed motor examination: More alert and oriented. Oriented x4. Follows commands. - Constitutional Vitals: Temp Pulse Resp BP Pulse Ox 98.6 F 78 18 140/60 94 08/14/21 07:55 08/14/21 07:55 08/14/21 07:55 08/14/21 07:55 08/14/21 07:55 Plan Follow up with: PRIMARY CARE, [Primary Care Provider] - 3-5 Days Prescriptions: AtorvaSTATin [Lipitor] 40 mg PO QHS #90 tablet amLODIPine 5 mg PO QDAY 30 Days #30 tablet Aspirin [Aspirin BABY CHEW TAB] 81 mg PO QDAY 30 Days #30 tab.chew Hydralazine HCl 50 mg PO BID 30 Days #30 tab Clopidogrel [Plavix] 75 mg PO QDAY 30 Days #30 tablet
[2021-08-14] MEDS ORDERED: DOCUSATE SODIUM 100 MG CAP PO SCH (10:00)
[2021-08-14] MEDS: ASPIRIN 81 MG TAB CHEW FEEDTUBE SCH (11:05)
[2021-08-14] MEDS: HEPARIN 5,000 UNIT/1 ML VIAL SUB-Q SCH (11:05)
[2021-08-14] MEDS: LANSOPRAZOLE 30 MG SOLUTAB FEEDTUBE SCH (11:05)
[2021-08-14] MEDS: CLOPIDOGREL 75 MG TAB FEEDTUBE SCH (11:10)
[2021-08-14] MEDS: hydrALAZINE 25 MG TAB FEEDTUBE SCH (11:10)
[2021-08-14] MEDS: amLODIPine 5 MG TAB FEEDTUBE SCH (11:10)
--- NOTE | 2021-08-14 13:18 | Progress Note ---
Assessment and Plan 1. ESRD: Patient is on maintenance HD, MWF schedule. Per she was switched to HD about 2 months ago 2/2 calciphylaxis. Meds dosage based on GFR. Last outpatient HD 08/04. Hemodialysis: 08/08, 08/09, 08/11, 08/13. 2. FEN: Hyperkalemia, on HD. Anion-gap metabolic acidosis, on HD. Monitor lytes and volume status. 3. Acute metabolic encephalopathy, POA: 2/2 narcotic OD. S/p Narcan drip. CT head negative. Seen by Neuro. MS is better. Monitor. 4. CAD s/p stent. Plavix, Statin, Aspirin, BB. Echo; EF 60%, LVH. 5. Anemia: Epogen with HD. 6. HTN. 7. Type 2 DM. Subjective: Patient was seen and examined at the bedside. Doing ok. Examination: General appearance: well-developed, well-nourished, appears stated age, not in distress HEENT: ATNC, pupils equal Neck: trachea midline Respiratory: Clear to Auscultation Cardiology: regular, S1S2, no murmur Gastrointestinal: normoactive bowel sounds, not tender, PD catheter noted Integumentary: b/l LE dressing noted Neurologic: AO, able to move extremities Ext: trace UE edema Hemodialysis access: R IJ tunnel catheter Subjective Date of service: 08/14/21 Principal diagnosis: Unresponsivness Objective - Vital Signs Vital signs: Vital Signs - 12hr 08/14/21 08/14/21 08/14/21 04:46 07:55 11:10 Temperature 97.9 F 98.6 F Pulse Rate 85 78 78 Respiratory 20 18 Rate Blood Pressure 167/77 140/60 140/60 O2 Sat by Pulse 97 94 Oximetry - Lab 08/11/21 04:30 08/11/21 04:30 Most recent lab results Calcium 8.1 mg/dL (8.4-10.2) L 08/11/21 04:30 Phosphorus 4.20 mg/dL (2.5-4.5) 08/09/21 04:14 Magnesium 2.10 mg/dL (1.7-2.3) 08/10/21 05:38 Medications & Allergies - Medications Allergies/Adverse Reactions: Allergies Penicillins Allergy (Unknown, Verified 08/11/21 17:39) Itching Home Medications: Home Medications Medication Instructions Recorded Confirmed Last Taken Type Albuterol Sulfate [Ventolin Hfa] 2 puff IH Q6H PRN 08/30/18 08/11/21 10/08/18 History Insulin Lispro [HumaLOG VIAL] 0 units SQ AC #1 vial 10/06/18 08/11/21 10/08/18 Rx Aspirin EC [Halfprin EC] 81 mg PO QDAY #90 tablet 05/02/21 08/08/21 Unknown Rx AtorvaSTATin [Lipitor] 40 mg PO QHS 08/08/21 08/08/21 Unknown History Cinacalcet [Sensipar] 30 mg PO QDAY 08/08/21 08/08/21 Unknown History Furosemide [Lasix TAB] 80 mg PO QDAY 08/08/21 08/08/21 Unknown History Metoprolol Succinate [Toprol Xl] 25 mg PO DAILY 08/08/21 08/08/21 Unknown History Nortriptyline [Pamelor] 25 mg PO DAILY 08/08/21 08/08/21 Unknown History calcitrioL [Rocaltrol] 0.5 mcg PO QDAY 08/08/21 08/08/21 Unknown History calcitrioL [Rocaltrol] 0.5 mcg PO QDAY 08/08/21 08/08/21 Unknown History metOLazone [Zaroxolyn] 5 mg PO QDAY 08/08/21 08/08/21 Unknown History Aspirin [Aspirin BABY CHEW TAB] 81 mg PO QDAY 30 Days #30 tab.chew 08/14/21 Unknown Rx AtorvaSTATin [Lipitor] 40 mg PO QHS #90 tablet 08/14/21 Unknown Rx Clopidogrel [Plavix] 75 mg PO QDAY 30 Days #30 tablet 08/14/21 Unknown Rx Hydralazine HCl 50 mg PO BID 30 Days #30 tab 08/14/21 Unknown Rx amLODIPine 5 mg PO QDAY 30 Days #30 tablet 08/14/21 Unknown Rx Active Medications: Generic Name Dose Route Start Last Admin Trade Name Freq PRN Reason Stop Dose Admin Acetaminophen 650 mg 08/07/21 22:40 08/12/21 17:15 Acetaminophen 325 Mg Tab PO 650 mg Q4H PRN Administration Pain MILD(1-3)/Fever >100.5/PÉREZ Albuterol 2.5 mg 08/07/21 22:48 Albuterol 2.5 Mg/3 Ml Nebu IH Q4HRT PRN Shortness Of Breath Amlodipine Besylate 5 mg 08/09/21 13:15 08/14/21 11:10 Amlodipine 5 Mg Tab FEEDTUBE 5 mg QDAY LADAN Administration Lipase/Protease/Amylase 1 each 08/12/21 12:41 Lipase 10,500/Protease 25,000/Amylase 43,750 (Units) Dr [place] FEEDTUBE PRN PRN For Clogged Feeding Tube Aspirin 81 mg 08/09/21 14:00 08/14/21 11:05 Aspirin 81 Mg Tab Chew FEEDTUBE 81 mg QDAY LADAN Administration Atorvastatin Calcium 40 mg 08/09/21 13:15 08/13/21 22:38 Atorvastatin 40 Mg Tab FEEDTUBE 40 mg QHS LADAN Administration Clonidine HCl 0.2 mg 08/09/21 13:15 08/13/21 22:37 Clonidine 0.2 Mg Tab FEEDTUBE 0.2 mg QHS LADAN Administration Clopidogrel Bisulfate 75 mg 08/09/21 13:15 08/14/21 11:10 Clopidogrel 75 Mg Tab FEEDTUBE 75 mg QDAY LADAN Administration Dextrose 25 ml 08/08/21 17:38 08/10/21 18:04 Dextrose 50% In Water (25gm) 50 Ml Syringe IV 25 ml Q30MIN PRN Administration Hypoglycemia Protocol Docusate Sodium 100 mg 08/14/21 10:00 08/14/21 11:05 Docusate Sodium 100 Mg Cap PO 100 mg BID LADAN Administration Heparin Sodium (Porcine) 5,000 unit 08/08/21 10:00 08/14/21 11:05 Heparin 5,000 Unit/1 Ml Vial SUB-Q 5,000 unit Q12HR LADAN Administration Heparin Sodium (Porcine) 3,000 unit 08/09/21 09:40 Heparin 10,000 Units/10 Ml Vial IV TITO PRN hemodialysis Hydralazine HCl 10 mg 08/08/21 04:22 08/14/21 05:11 Hydralazine 20 Mg/1 Ml Inj IV 10 mg Q6H PRN Administration Hypertension Hydralazine HCl 50 mg 08/09/21 13:15 08/14/21 11:10 Hydralazine 25 Mg Tab FEEDTUBE 50 mg BID LADAN Administration Sodium Chloride 100 mls @ 999 mls/hr 08/08/21 13:00 Nacl 0.9% IV TITO PRN Hypotension Isosorbide Dinitrate 10 mg 08/10/21 14:00 08/14/21 05:13 Isosorbide Dinitrate 10 Mg Tab PO 10 mg Q8H LADAN Administration Labetalol HCl 10 mg 08/08/21 08:38 08/08/21 10:00 Labetalol 20 Mg/4 Ml Inj IV 10 mg Q4HR PRN Administration Hypertension Lansoprazole 30 mg 08/09/21 14:00 08/14/21 11:05 Lansoprazole 30 Mg Solutab FEEDTUBE 30 mg QDAY LADAN Administration Latanoprost 1 drops 08/08/21 18:00 08/13/21 17:07 Latanoprost 0.005% Ophth Soln 2.5 Ml OU 1 drops QPM LADAN Administration Metoclopramide HCl 2.5 mg 08/07/21 22:52 Metoclopramide 10 Mg/2 Ml Inj IV Q6H PRN Nausea And Vomiting Metoprolol Tartrate 25 mg 08/09/21 13:15 08/14/21 05:12 Metoprolol Tartrate 25 Mg Tab FEEDTUBE 25 mg Q8HR LADAN Administration Ondansetron HCl 4 mg 08/07/21 22:40 08/14/21 05:13 Ondansetron 4 Mg/2 Ml Inj IV 4 mg Q3H PRN Administration Nausea And Vomiting Simple Syrup 15 ml 08/12/21 12:41 Simple Syrup 15 Ml FEEDTUBE PRN PRN Hypoglycemia Simple Syrup 30 ml 08/12/21 12:41 Simple Syrup 15 Ml FEEDTUBE PRN PRN Hypoglycemia Sodium Bicarbonate 325 mg 08/12/21 12:41 Sodium Bicarbonate 325 Mg Tab FEEDTUBE PRN PRN For Clogged Feeding Tube Sodium Chloride 10 ml 08/08/21 10:00 08/13/21 22:40 Sodium Chloride 0.9% 10 Ml Flush Syringe IV 10 ml BID LADAN Administration Sodium Chloride 10 ml 08/07/21 22:40 Sodium Chloride 0.9% 10 Ml Flush Syringe IV PRN PRN LINE FLUSH Tizanidine HCl 4 mg 08/07/21 22:35 Tizanidine Tab 4 Mg Tab PO BID PRN Muscle Spasm
== END 2021-08-14 17:24 | disposition home health service (06) | DRG 917 ==
LOC: ED 13:16 → CC1 19:03 → IMCU 08-08 16:50 → 4A 08-12 18:07
PROVIDERS: ADMIT Internal Medicine; ATTEND Internal Medicine
PROC: 5A1D70Z Performance of Urinary Filtration, Intermittent, Less than 6 Hours Per Day (ICD-10-PCS; principal; 2021-08-08)
PROC: 5A1D70Z Performance of Urinary Filtration, Intermittent, Less than 6 Hours Per Day (ICD-10-PCS; 2021-08-09)
PROC: 5A1D70Z Performance of Urinary Filtration, Intermittent, Less than 6 Hours Per Day (ICD-10-PCS; 2021-08-11)
PROC: 5A1D70Z Performance of Urinary Filtration, Intermittent, Less than 6 Hours Per Day (ICD-10-PCS; 2021-08-13)
DX: T40.601A Poisoning by unspecified narcotics, accidental (unintentional), initial encounter (principal); N18.6 End stage renal disease; G92.9 Unspecified toxic encephalopathy; E87.2 Acidosis; I13.2 Hypertensive heart and chronic kidney disease with heart failure and with stage 5 chronic kidney disease, or end stage renal disease; I50.30 Unspecified diastolic (congestive) heart failure; N25.81 Secondary hyperparathyroidism of renal origin; I25.10 Atherosclerotic heart disease of native coronary artery without angina pectoris; D63.1 Anemia in chronic kidney disease; Y92.89 Other specified places as the place of occurrence of the external cause; Z88.0 Allergy status to penicillin; E11.22 Type 2 diabetes mellitus with diabetic chronic kidney disease; Z99.2 Dependence on renal dialysis; M19.90 Unspecified osteoarthritis, unspecified site; J45.909 Unspecified asthma, uncomplicated; Z79.4 Long term (current) use of insulin; Z79.82 Long term (current) use of aspirin; Z96.653 Presence of artificial knee joint, bilateral; H40.9 Unspecified glaucoma; K21.9 Gastro-esophageal reflux disease without esophagitis; B19.20 Unspecified viral hepatitis C without hepatic coma; D72.829 Elevated white blood cell count, unspecified; E83.42 Hypomagnesemia; E11.43 Type 2 diabetes mellitus with diabetic autonomic (poly)neuropathy; K31.84 Gastroparesis
CPT/HCPCS: 36415; 70450; 70551; 71045; 74018; 80048; 80053; 80074; 80307; 81001; 82140; 82962; 83036; 83735; 84100; 85007; 85025; 85027; 87086; 87517; 93005; 94640; G0378; A9270-GY; J0360; J0885; J1644; J2310; J2405; J3475; J7040

== ENCOUNTER 2021-08-16 18:51 | Inpatient (IN) | payer MEDICARE ==
--- NOTE | 2021-08-16 19:05 | Emergency Department Report ---
ED Altered Mental Status HPI - General Stated Complaint: UNRESPONSIVE Time Seen by Provider: 08/16/21 19:05 - History of Present Illness Initial Comments: Patient was brought in by EMS secondary to altered mental status. She cannot provide any history. EMS provides all the history. Family apparently called EMS because the patient was unresponsive and had been "out of it" for the last day. They state that she had been somnolent and less reactive for at least 24 hours. Family decided maybe there was something wrong and called EMS. Family had told EMS that they did not believe the patient had overdosed on medication because they administered her medication. It should be noted the patient had recently been here on a Narcan drip secondary to a Dilaudid overdose. - Related Data Home Medications Medication Instructions Recorded Confirmed Last Taken Albuterol Sulfate [Ventolin Hfa] 2 puff IH Q6H PRN 08/30/18 08/11/21 10/08/18 AtorvaSTATin [Lipitor] 40 mg PO QHS 08/08/21 08/08/21 Unknown Cinacalcet [Sensipar] 30 mg PO QDAY 08/08/21 08/08/21 Unknown Furosemide [Lasix TAB] 80 mg PO QDAY 08/08/21 08/08/21 Unknown Metoprolol Succinate [Toprol Xl] 25 mg PO DAILY 08/08/21 08/08/21 Unknown Nortriptyline [Pamelor] 25 mg PO DAILY 08/08/21 08/08/21 Unknown calcitrioL [Rocaltrol] 0.5 mcg PO QDAY 08/08/21 08/08/21 Unknown calcitrioL [Rocaltrol] 0.5 mcg PO QDAY 08/08/21 08/08/21 Unknown metOLazone [Zaroxolyn] 5 mg PO QDAY 08/08/21 08/08/21 Unknown Previous Rx's Medication Instructions Recorded Last Taken Type Insulin Lispro [HumaLOG VIAL] 0 units SQ AC #1 vial 10/06/18 10/08/18 Rx Aspirin EC [Halfprin EC] 81 mg PO QDAY #90 tablet 05/02/21 Unknown Rx Aspirin [Aspirin BABY CHEW TAB] 81 mg PO QDAY 30 Days #30 tab.chew 08/14/21 Unknown Rx AtorvaSTATin [Lipitor] 40 mg PO QHS #90 tablet 08/14/21 Unknown Rx Clopidogrel [Plavix] 75 mg PO QDAY 30 Days #30 tablet 08/14/21 Unknown Rx Hydralazine HCl 50 mg PO BID 30 Days #30 tab 08/14/21 Unknown Rx amLODIPine 5 mg PO QDAY 30 Days #30 tablet 08/14/21 Unknown Rx Allergies Allergy/AdvReac Type Severity Reaction Status Date / Time Penicillins Allergy Unknown Itching Verified 08/11/21 17:39 ED Review of Systems ROS: Stated complaint: UNRESPONSIVE Other details as noted in HPI Comment: Unobtainable due to pts medical conditions (Altered mental status) ED Past Medical Hx - Past Medical History Hx Hypertension: Yes Hx Congestive Heart Failure: Yes Hx Diabetes: Yes Hx Renal Disease: Yes (CKD) Hx Arthritis: Yes Hx Asthma: Yes Hx HIV: No Additional medical history: Cannot be obtained for the patient secondary to altered mental status. stomach issues. - Surgical History Additional Surgical History: bilateral knee replacements, left shoulder surgery, chronic back pain and leg pain - Family History Family history: other (Cannot be obtained for the patient secondary to altered mental status) - Social History Smoking Status: Never Smoker - Medications Home Medications: Home Medications Medication Instructions Recorded Confirmed Last Taken Type Albuterol Sulfate [Ventolin Hfa] 2 puff IH Q6H PRN 08/30/18 08/11/21 10/08/18 History Insulin Lispro [HumaLOG VIAL] 0 units SQ AC #1 vial 10/06/18 08/11/21 10/08/18 Rx Aspirin EC [Halfprin EC] 81 mg PO QDAY #90 tablet 05/02/21 08/08/21 Unknown Rx AtorvaSTATin [Lipitor] 40 mg PO QHS 08/08/21 08/08/21 Unknown History Cinacalcet [Sensipar] 30 mg PO QDAY 08/08/21 08/08/21 Unknown History Furosemide [Lasix TAB] 80 mg PO QDAY 08/08/21 08/08/21 Unknown History Metoprolol Succinate [Toprol Xl] 25 mg PO DAILY 08/08/21 08/08/21 Unknown History Nortriptyline [Pamelor] 25 mg PO DAILY 08/08/21 08/08/21 Unknown History calcitrioL [Rocaltrol] 0.5 mcg PO QDAY 08/08/21 08/08/21 Unknown History calcitrioL [Rocaltrol] 0.5 mcg PO QDAY 08/08/21 08/08/21 Unknown History metOLazone [Zaroxolyn] 5 mg PO QDAY 08/08/21 08/08/21 Unknown History Aspirin [Aspirin BABY CHEW TAB] 81 mg PO QDAY 30 Days #30 tab.chew 08/14/21 Unknown Rx AtorvaSTATin [Lipitor] 40 mg PO QHS #90 tablet 08/14/21 Unknown Rx Clopidogrel [Plavix] 75 mg PO QDAY 30 Days #30 tablet 08/14/21 Unknown Rx Hydralazine HCl 50 mg PO BID 30 Days #30 tab 08/14/21 Unknown Rx amLODIPine 5 mg PO QDAY 30 Days #30 tablet 08/14/21 Unknown Rx ED Physical Exam - General Limitations: Altered Mental Status General appearance: obtunded, obese - Head Head exam: Present: atraumatic, normocephalic - Eye Eye exam: Present: normal appearance, other (Conjugate gaze with pupils at 3 mm). Absent: scleral icterus, conjunctival injection - ENT ENT exam: Present: normal exam, mucous membranes moist, other (Pulling secretions) - Neck Neck exam: Present: normal inspection, other (Trachea midline) - Respiratory Respiratory exam: Present: respiratory distress (Moderate), rhonchi (Bilateral), accessory muscle use - Cardiovascular Cardiovascular Exam: Present: normal rhythm, tachycardia - GI/Abdominal GI/Abdominal exam: Present: soft. Absent: distended - Extremities Exam Extremities exam: Present: normal capillary refill - Back Exam Back exam: Absent: rash noted - Neurological Exam Neurological exam: Present: other (Stuporous) - Psychiatric Psychiatric exam: Present: other (Stuporous) - Skin Skin exam: Present: warm, dry ED Course Vital Signs 08/16/21 08/16/21 08/16/21 18:56 18:57 19:00 Temperature 97.9 F Pulse Rate 108 H 126 H Respiratory 10 L 12 Rate Blood Pressure 195/93 O2 Sat by Pulse 100 87 Oximetry 08/16/21 08/16/21 08/16/21 19:35 19:46 20:00 Temperature Pulse Rate 103 H 115 H 102 H Respiratory 24 24 24 Rate Blood Pressure 205/86 205/86 187/94 O2 Sat by Pulse 100 100 100 Oximetry 08/16/21 08/16/21 08/16/21 20:01 20:16 20:30 Temperature Pulse Rate 104 H 102 H 101 H Respiratory 24 24 Rate Blood Pressure 205/86 178/79 192/83 O2 Sat by Pulse 100 100 100 Oximetry 08/16/21 08/16/21 20:46 21:00 Temperature Pulse Rate 108 H 104 H Respiratory 12 24 Rate Blood Pressure 164/81 167/87 O2 Sat by Pulse 100 100 Oximetry - Reevaluation(s) Reevaluation #1: 08/16/21 19:05 Intubation complete. Patient had not responded to Narcan 0.4 mg x 2. She was not protecting her airway. 08/16/21 20:24 Reevaluation #2: 08/16/21 20:21 CT and labs are still pending. Reevaluation #3: 08/16/21 21:12 Noriega catheter has been placed. Patient has cloudy urine. Cultures have been added on. Rocephin has been ordered. We will proceed with admission. - Intubation Time Out Performed: Yes Sedative: Etomidate Mg Given: 20 Laryngoscope: Julia Size: 4 ET Tube Size: 7.5 Tube Secured Depth (cm): 22 Tube Secured Location: lips Tube Placement Confirmation: visualized tube passing t, equal breath sounds bilat, no breath sounds over epi, confirmation by capnometr Patient Tolerated Procedure: well, no complications Intubation Complications: none - Lab Data Result diagrams: 08/16/21 20:06 08/16/21 20:06 Lab Results 08/16/21 08/16/21 08/16/21 Range/Units 20:06 20:06 20:06 WBC 10.5 (4.5-11.0) K/mm3 RBC 3.24 L (3.65-5.03) M/mm3 Hgb 10.1 (10.1-14.3) gm/dl Hct 31.8 (30.3-42.9) % MCV 98 H (79-97) fl MCH 31 (28-32) pg MCHC 32 (30-34) % RDW 17.8 H (13.2-15.2) % Plt Count 360 (140-440) K/mm3 ABG pH (7.350-7.450) pH Units ABG pCO2 mm Hg ABG pO2 (80.0-90.0) mm Hg ABG HCO3 (20.0-26.0) mmol/L ABG O2 Saturation (95.0-99.0) % ABG O2 Content (0.0-44) ABG Base Excess (-2.0-3.0) mmol/L ABG Hemoglobin (12.0-16.0) gm/dl ABG Carboxyhemoglobin (0.0-5.0) % ABG Methemoglobin (0.0-1.5) % Oxyhemoglobin (95.0-99.0) % FiO2 % Sodium 139 (137-145) mmol/L Potassium 4.3 (3.6-5.0) mmol/L Chloride 98.2 (98-107) mmol/L Carbon Dioxide 25 (22-30) mmol/L Anion Gap 20 mmol/L BUN 35 H (7-17) mg/dL Creatinine 6.1 H (0.6-1.2) mg/dL Estimated GFR 7 ml/min BUN/Creatinine Ratio 6 % Glucose 175 H (65-100) mg/dL Calcium 9.0 (8.4-10.2) mg/dL Plasma/Serum Alcohol < 0.01 (0-0.07) % 08/16/ Range/Units 20:35 WBC (4.5-11.0) K/mm3 RBC (3.65-5.03) M/mm3 Hgb (10.1-14.3) gm/dl Hct (30.3-42.9) % MCV (79-97) fl MCH (28-32) pg MCHC (30-34) % RDW (13.2-15.2) % Plt Count (140-440) K/mm3 ABG pH 7.534 H (7.350-7.450) pH Units ABG pCO2 27.9 mm Hg ABG pO2 248.5 H (80.0-90.0) mm Hg ABG HCO3 23.0 (20.0-26.0) mmol/L ABG O2 Saturation 99.4 H (95.0-99.0) % ABG O2 Content 14.5 (0.0-44) ABG Base Excess 1.0 (-2.0-3.0) mmol/L ABG Hemoglobin 10.1 L (12.0-16.0) gm/dl ABG Carboxyhemoglobin 1.5 (0.0-5.0) % ABG Methemoglobin 0.5 (0.0-1.5) % Oxyhemoglobin 97.5 (95.0-99.0) % FiO2 60 % Sodium (137-145) mmol/L Potassium (3.6-5.0) mmol/L Chloride (98-107) mmol/L Carbon Dioxide (22-30) mmol/L Anion Gap mmol/L BUN (7-17) mg/dL Creatinine (0.6-1.2) mg/dL Estimated GFR ml/min BUN/Creatinine Ratio % Glucose (65-100) mg/dL Calcium (8.4-10.2) mg/dL Plasma/Serum Alcohol (0-0.07) % Rhythm strip: Sinus tachycardia without ectopy per monitor observe 10 seconds. - Radiology Data Radiology results: report reviewed - Medical Decision Making Patient presented by ambulance secondary to altered mental status. She was not protecting her airway. She was clearly altered and comatose. Decision was made to electively intubate her. She did not respond to Narcan. Patient has evidence of a toxic encephalitis given the fact that she has altered mental status with pyuria. There is no evidence of stroke or bleed. She has not responded to Narcan. There still could be an opiate overdose or some other overdose that is just unresponsive to Narcan. Regardless, she is currently intubated. She has been given antibiotics. She will be admitted to the intensive care unit. Critical Care Time: Yes Critical care attestation.: If time is entered above; I have spent that time in minutes in the direct care of this critically ill patient, excluding procedure time. Critical Care Time: Critical care time of 65 minutes exclusive of all procedures ED Disposition Clinical Impression: Toxic encephalopathy Urinary tract infection Qualifiers: Urinary tract infection type: site unspecified Hematuria presence: without hematuria Qualified Code(s): N39.0 - Urinary tract infection, site not specified Disposition: 09 ADMITTED INPATIENT Is pt being admited?: Yes Condition: Stable Referrals: PRIMARY CARE, [Primary Care Provider] - 3-5 Days
--- NOTE | 2021-08-16 19:55 | Cat Scan Report ---
CT HEAD WITHOUT CONTRAST INDICATION / CLINICAL INFORMATION: ams. TECHNIQUE: All CT scans at this location are performed using CT dose reduction for ALARA by means of automated exposure control. COMPARISON: 08/08/2021 FINDINGS: HEMORRHAGE: None. EXTRA-AXIAL SPACES: Normal in size and morphology for the patient's age. VENTRICULAR SYSTEM: Normal in size and morphology for the patient's age. CEREBRAL PARENCHYMA: No significant abnormality. No acute territorial infarct. MIDLINE SHIFT / HERNIATION: None. CEREBELLUM / BRAINSTEM: No significant abnormality. ORBITS: Normal as visualized. SOFT TISSUES: No significant abnormality. SKULL: No significant abnormality. PARANASAL SINUSES / MASTOID AIR CELLS: Normal as visualized. ADDITIONAL FINDINGS: None. IMPRESSION: 1. No acute intracranial abnormality. Signer Name: Aj Al MD Signed: 08/16/2021 7:51 PM Workstation Name: [id number]
[2021-08-16] MEDS ORDERED: NALOXONE 2 MG/2 ML INJ IV ONE (20:05)
[2021-08-16] MEDS ORDERED: NALOXONE 0.4 MG/1 ML INJ IV PRN (20:05)
[2021-08-16] MEDS ORDERED: ETOMIDATE 20 MG/10 ML INJ IV ONE (20:05)
--- NOTE | 2021-08-16 20:14 | XRay Report ---
CHEST 1 VIEW 08/16/2021 7:40 PM INDICATION / CLINICAL INFORMATION: ETT placement. COMPARISON: 08/12/21. FINDINGS: SUPPORT DEVICES: There is a new endotracheal tube with the tip 3 cm above the randall. The nasogastric tube has been removed. The position of the right jugular permacath has not changed. HEART / MEDIASTINUM: The heart size and pulmonary vasculature are normal. LUNGS / PLEURA: No significant pulmonary or pleural abnormality. No pneumothorax. ADDITIONAL FINDINGS: No significant additional findings. IMPRESSION: 1. Endotracheal tube in satisfactory position radiographically. 2. No acute pulmonary disease. Signer Name: Matty Hagan MD Signed: 08/16/2021 8:10 PM Workstation Name: [id number]
[2021-08-16 20:22] LABS: Hematocrit 31.8 % (30.3-42.9); Hemoglobin 10.1 gm/dl (10.1-14.3); Mean Corpuscular HGB Conc 32 % (30-34); Mean Corpuscular Volume 98 fl (79-97); Platelet Count 360 K/mm3 (140-440); Red Blood Count 3.24 M/mm3 (3.65-5.03); Red Cell Distribution Width 17.8 % (13.2-15.2)
[2021-08-16 21:04] LABS: ABG Methemoglobin 0.5 % (0.0-1.5); ABG Oxygen Saturation 99.4 % (95.0-99.0); ABG PCO2 27.9 mm Hg; ABG PH 7.534 pH Units (7.350-7.450); ABG PO2 248.5 mm Hg (80.0-90.0)
[2021-08-16] MEDS ORDERED: LIDOCAINE-MPF (1%) 10 MG/1 ML VIAL 5 ML INFILTRATI ONE (21:05)
[2021-08-16] MEDS ORDERED: CEFEPIME/NS 2 GM/100 ML 2 GM/100 ML BAG IV ONE (21:18)
[2021-08-16 21:28] LABS: Amphetamine Screen,Urine Negative; Benzodiazepines Screen,Urine Negative; Cannabinoid Screen,Urine Negative; Cocaine Screen,Urine Negative; Methadone Screen,Urine Negative; Opiate Screen,Urine Negative
[2021-08-16] MEDS ORDERED: DEXTROSE 50% IN WATER (25GM) 50 ML SYRINGE IV PRN (21:28)
[2021-08-16] MEDS ORDERED: ONDANSETRON 4 MG/2 ML INJ IV PRN (21:28)
[2021-08-16] MEDS ORDERED: ACETAMINOPHEN 650 MG RECT SUPP PR PRN (21:28)
[2021-08-16] MEDS ORDERED: MORPHINE 2 MG/1 ML INJ IV PRN (21:28)
[2021-08-16] MEDS ORDERED: MORPHINE 4 MG/1 ML INJ IV PRN (21:28)
--- NOTE | 2021-08-16 21:40 | History and Physical Report ---
History of Present Illness Date of examination: 08/16/21 Date of admission: 08/16/2021 Chief complaint: Altered mental status History of present illness: 70-year-old -[place] female with known history of hypertension, diabetes mellitus, end-stage renal disease on dialysis brought in by EMS today for changes in mental status. According to family patient was said to have been altered earlier today and has been less responsive. She was recently discharged from this hospital after having vascular surgery for varicose veins and has been prescribed Dilaudid 2 mg every 6 hours at that time. During her recent hospital admission she had been placed on Narcan drip possibly secondary to an overdose of the Dilaudid. However today, family does not feel patient had overdosed on her medications as they had been administrating her medications to her. Upon arrival in the emergency room she was given some Narcan without any significant improvement. Blood sugar at was said to be in the 200s upon initial presentation. She was found to be obtunded and subsequently intubated to protect her airway. Work-up in the emergency room, chest x-ray, CT scan of the head has been unremarkable. Urinalysis reveals UTI. Patient be started on empiric IV antibiotics. Past History Past Medical History: arthritis, diabetes, dialysis, ESRD, heart failure, hypertension, other (History of asthma) Past Surgical History: Other ( bilateral knee replacements, left shoulder surgery, chronic back pain and leg pain, recent varicose vein surgery) Social history: lives with family Family history: no significant family history Medications and Allergies Allergies Allergy/AdvReac Type Severity Reaction Status Date / Time Penicillins Allergy Unknown Itching Verified 08/11/21 17:39 Home Medications Medication Instructions Recorded Confirmed Last Taken Type Albuterol Sulfate [Ventolin Hfa] 2 puff IH Q6H PRN 08/30/18 08/11/21 10/08/18 History Insulin Lispro [HumaLOG VIAL] 0 units SQ AC #1 vial 10/06/18 08/11/21 10/08/18 Rx Aspirin EC [Halfprin EC] 81 mg PO QDAY #90 tablet 05/02/21 08/08/21 Unknown Rx AtorvaSTATin [Lipitor] 40 mg PO QHS 08/08/21 08/08/21 Unknown History Cinacalcet [Sensipar] 30 mg PO QDAY 08/08/21 08/08/21 Unknown History Furosemide [Lasix TAB] 80 mg PO QDAY 08/08/21 08/08/21 Unknown History Metoprolol Succinate [Toprol Xl] 25 mg PO DAILY 08/08/21 08/08/21 Unknown History Nortriptyline [Pamelor] 25 mg PO DAILY 08/08/21 08/08/21 Unknown History calcitrioL [Rocaltrol] 0.5 mcg PO QDAY 08/08/21 08/08/21 Unknown History calcitrioL [Rocaltrol] 0.5 mcg PO QDAY 08/08/21 08/08/21 Unknown History metOLazone [Zaroxolyn] 5 mg PO QDAY 08/08/21 08/08/21 Unknown History Aspirin [Aspirin BABY CHEW TAB] 81 mg PO QDAY 30 Days #30 tab.chew 08/14/21 Unknown Rx AtorvaSTATin [Lipitor] 40 mg PO QHS #90 tablet 08/14/21 Unknown Rx Clopidogrel [Plavix] 75 mg PO QDAY 30 Days #30 tablet 08/14/21 Unknown Rx Hydralazine HCl 50 mg PO BID 30 Days #30 tab 08/14/21 Unknown Rx amLODIPine 5 mg PO QDAY 30 Days #30 tablet 08/14/21 Unknown Rx Active Meds: Active Medications Acetaminophen (Acetaminophen 650 Mg Rect Supp) 650 mg [place] Q6H PRN PRN Reason: Pain MILD(1-3)/Fever >100.5/PÉREZ Dextrose (Dextrose 50% In Water (25gm) 50 Ml Syringe) 50 ml IV Q30MIN PRN; Protocol PRN Reason: Hypoglycemia Dextrose (Dextrose 50% In Water (25gm) 50 Ml Syringe) 50 ml IV Q30MIN PRN; Protocol PRN Reason: Hypoglycemia Heparin Sodium (Porcine) (Heparin 5,000 Unit/1 Ml Vial) 5,000 unit SUB-Q Q8HR LADAN Propofol (Diprivan 10 Mg/Ml) 1,000 mg in 100 mls @ 2.73 mls/hr IV TITR LADAN; Protocol Last Titration: 08/16/21 19:58 Dose: 15 mcg/kg/min, 8.19 mls/hr Documented by: Cefepime HCl (Cefepime/Ns 2 Gm/100 Ml) 2 gm in 100 mls @ 200 mls/hr IV ONCE ONE; Protocol Stop: 08/16/21 21:47 Sodium Chloride (Nacl 0.9% 1000 Ml) 1,000 mls @ 125 mls/hr IV DIRECT LADAN Insulin Human Lispro (Insulin Lispro 100 Unit/Ml) 0 unit SUB-Q ACHS LADAN; Protocol Morphine Sulfate (Morphine 2 Mg/1 Ml Inj) 2 mg IV Q4H PRN PRN Reason: Pain, Moderate (4-6) Morphine Sulfate (Morphine 4 Mg/1 Ml Inj) 4 mg IV Q4H PRN PRN Reason: Pain , Severe (7-10) Naloxone HCl (Naloxone 0.4 Mg/1 Ml Inj) 0.4 mg IV Q2MIN PRN PRN Reason: Res Rate </= 8 or 02 SAT < 92% Last Admin: 08/16/21 18:53 Dose: 0.4 mg Documented by: Ondansetron HCl (Ondansetron 4 Mg/2 Ml Inj) 4 mg IV Q8H PRN PRN Reason: Nausea And Vomiting Sodium Chloride (Sodium Chloride 0.9% 10 Ml Flush Syringe) 10 ml IV BID LADAN Sodium Chloride (Sodium Chloride 0.9% 10 Ml Flush Syringe) 10 ml IV PRN PRN PRN Reason: LINE FLUSH Review of Systems ROS unobtainable: due to endotracheal tube Exam - Constitutional Vitals: Temp Pulse Resp BP Pulse Ox 97.9 F 104 H 24 167/87 100 08/16/21 18:56 08/16/21 21:00 08/16/21 21:00 08/16/21 21:00 08/16/21 21:00 General appearance: Present: well-nourished, other (Intubated and sedated) - EENT Eyes: Present: PERRL, EOM intact. Absent: scleral icterus ENT: hearing intact, clear oral mucosa, dentition normal - Neck Neck: Present: supple, normal ROM - Respiratory Respiratory effort: normal Respiratory: bilateral: CTA - Cardiovascular Rhythm: regular Heart Sounds: Present: S1 & S2. Absent: gallop, systolic murmur, diastolic murmur, rub, click - Extremities Extremities: no ischemia, pulses intact, pulses symmetrical, normal temperature, normal color, Full ROM Extremity abnormal: edema (1+ bilateral ankle edema), ulceration (Dressing over bilateral lower extremity ulcers), other (Scar of old surgeries on knees bilaterally) Peripheral Pulses: within normal limits - Abdominal General gastrointestinal: Present: soft, non-tender, normal bowel sounds - Integumentary Integumentary: Present: clear, warm, dry. Absent: rash - Musculoskeletal Musculoskeletal: strength equal bilaterally - Psychiatric Psychiatric: cooperative - Neurologic Neurologic: no focal deficits, moves all extremities, other (Intubated and sedated) Results - Labs CBC & Chem 7: 08/17/21 04:41 08/17/21 04:41 Labs: Abnormal lab results 08/16/21 08/16/21 08/16/21 Range/Units 20:06 20:06 20:35 RBC 3.24 L (3.65-5.03) M/mm3 MCV 98 H (79-97) fl RDW 17.8 H (13.2-15.2) % ABG pH 7.534 H (7.350-7.450) pH Units ABG pO2 248.5 H (80.0-90.0) mm Hg ABG O2 Saturation 99.4 H (95.0-99.0) % ABG Hemoglobin 10.1 L (12.0-16.0) gm/dl BUN 35 H (7-17) mg/dL Creatinine 6.1 H (0.6-1.2) mg/dL Glucose 175 H (65-100) mg/dL Assessment and Plan - Patient Problems (1) Toxic encephalopathy Current Visit: Yes Status: Acute Plan to address problem: Etiology is unclear. Possibly secondary to underlying infection. Urinalysis-reveals UTI. Patient placed on empiric IV antibiotics and IV fluid. (2) Diabetes Current Visit: No Status: Acute Plan to address problem: Patient placed on sliding scale insulin. We will monitor Accu-Cheks closely. (3) HTN (hypertension) Current Visit: No Status: Acute Qualifiers: Hypertension type: essential hypertension Plan to address problem: We will resume routine home medications once able to tolerate p.o. oral intake. Meanwhile we will place on IV hydralazine as needed for blood pressure control (4) ESRD (end stage renal disease) Current Visit: No Status: Chronic Plan to address problem: We will place consult to nephrology for evaluation and for dialysis during this admission. (5) Urinary tract infection Current Visit: Yes Status: Acute Qualifiers: Urinary tract infection type: site unspecified Hematuria presence: without hematuria Qualified Code(s): N39.0 - Urinary tract infection, site not specified Plan to address problem: Patient commenced on empiric IV antibiotics. (6) DVT prophylaxis Current Visit: No Status: Acute Plan to address problem: Patient placed on subcutaneous heparin. (7) Full code status Current Visit: Yes Status: Acute Plan to address problem: Patient is full code.
[2021-08-16] MEDS ORDERED: VANCOMYCIN PHARMACY TO DOSE IV SCH (22:00)
[2021-08-16] MEDS ORDERED: VANCOMYCIN 2,000 MG in SODIUM CHLORIDE 0.9% 500 ML 500 ML IV ONE (23:15)
[2021-08-17] MEDS: HEPARIN 5,000 UNIT/1 ML VIAL SUB-Q SCH ×4 (00:11→22:00)
[2021-08-17] MEDS: INSULIN LISPRO 100 UNIT/ML SUB-Q SCH ×5 (00:12→22:00)
[2021-08-17] MEDS: SODIUM CHLORIDE 0.9% 1000 ML 1,000 ML IV SCH ×3 (00:14→16:28)
--- NOTE | 2021-08-17 00:37 | XRay Report ---
ABDOMEN 1 VIEW(S) INDICATION / CLINICAL INFORMATION: Orogastric tube verification. COMPARISON: 08/09/2021 FINDINGS: TUBES / LINES: Gastric tube tip and side-port are in the proximal stomach in satisfactory position. D ialysis catheter is noted coiled in the right lower quadrant. BOWEL GAS PATTERN: No significant abnormality. FREE AIR / EXTRALUMINAL GAS: None seen. ADDITIONAL FINDINGS: No significant additional findings. IMPRESSION: 1. Gastric tube in satisfactory position. Signer Name: Julian Lambert MD Signed: 08/17/2021 12:33 AM Workstation Name: [id number]
[2021-08-17] MEDS ORDERED: CEFEPIME/NS 2 GM/100 ML 2 GM/100 ML BAG IV ONE (01:15)
[2021-08-17 03:16] LABS: Bacteria,Urine 4+ /HPF (Negative)
[2021-08-17 03:18] LABS: ABG Base Excess 0.8 mmol/L (-2.0-3.0); ABG HCO3 23.2 mmol/L (20.0-26.0); ABG Methemoglobin 0.5 % (0.0-1.5); ABG Oxygen Saturation 81.2 % (95.0-99.0); ABG PCO2 28.7 mm Hg; ABG PH 7.525 pH Units (7.350-7.450); ABG PO2 45.2 mm Hg (80.0-90.0)
[2021-08-17 03:31] LABS: Bilirubin,Urine Negative (Negative); Blood,Urine Moderate (Negative); Color,Urine Yellow (Yellow)
[2021-08-17 03:32] LABS: Protein,Urine >500 mg/dL (Negative); Urobilinogen,Urine < 2.0 mg/dL (<2.0); WBC,Urine > 182.0 /HPF (0.0-6.0)
[2021-08-17] MEDS: hydrALAZINE 20 MG/1 ML INJ IV PRN (04:44)
[2021-08-17 05:17] LABS: Basophils # (Auto) 0.1 K/mm3 (0.0-0.1); Basophils % (Auto) 0.5 % (0.0-1.8); Eosinophils # (Auto) 0.3 K/mm3 (0.0-0.4); Eosinophils % (Auto) 2.6 % (0.0-4.3); Hematocrit 28.3 % (30.3-42.9); Hemoglobin 8.9 gm/dl (10.1-14.3); Lymphocytes # (Auto) 1.9 K/mm3 (1.2-5.4); Lymphocytes % (Auto) 17.4 % (13.4-35.0); Mean Corpuscular HGB Conc 31 % (30-34); Mean Corpuscular Volume 98 fl (79-97); Monocytes # (Auto) 0.9 K/mm3 (0.0-0.8); Monocytes % (Auto) 8.3 % (0.0-7.3); Platelet Count 334 K/mm3 (140-440); Red Blood Count 2.89 M/mm3 (3.65-5.03); Red Cell Distribution Width 17.5 % (13.2-15.2)
[2021-08-17 05:27] LABS: INR 0.96 (0.87-1.13)
[2021-08-17 05:40] LABS: Calcium 7.8 mg/dL (8.4-10.2)
--- NOTE | 2021-08-17 09:03 | Consultation ---
History of Present Illness - Reason for Consult Consult date: 08/17/21 end stage renal disease - History of Present Illness The patient is a 70 yo female with history significant for DM-2, HTN, CAD s/p stent, HFpEF, chronic hypoxic respiratory failure, OA, Anemia, Calciphylaxis and ESRD on HD (MWF) who was brought in by EMS to [facility] ED on 08/16 for evaluation of unresponsiveness and altered mental status. Patient was not able to provide any history and there was no family member at the bedside. Patient was admitted with similar presentation recently, suspected Dilaudid OD, had been placed on Narcan drip and discharged on 08/14 after improvement in the MS. However today, family does not feel patient had overdosed on her medications. Upon arrival to the ED pt was given some Narcan without any significant improvement. Intial blood sugar at was 175. She was found to be obtunded and subsequently intubated to protect her airway. Work-up in the ED, chest x-ray, CT scan of the head has been unremarkable. Urinalysis reveals UTI and placed on empiric IV antibiotics. Nephrology was consulted for ESRD management. Past History Past Medical History: arthritis, diabetes, dialysis, ESRD, heart failure, hypertension, other (History of asthma) Past Surgical History: Other ( bilateral knee replacements, left shoulder cifuentes rgery, chronic back pain and leg pain, recent varicose vein surgery) Social history: lives with family Family history: no significant family history Medications and Allergies Allergies Allergy/AdvReac Type Severity Reaction Status Date / Time Penicillins Allergy Unknown Itching Verified 08/11/21 17:39 Home Medications Medication Instructions Recorded Confirmed Last Taken Type Albuterol Sulfate [Ventolin Hfa] 2 puff IH Q6H PRN 08/30/18 08/11/21 10/08/18 History Insulin Lispro [HumaLOG VIAL] 0 units SQ AC #1 vial 10/06/18 08/11/21 10/08/18 Rx Aspirin EC [Halfprin EC] 81 mg PO QDAY #90 tablet 05/02/21 08/08/21 Unknown Rx AtorvaSTATin [Lipitor] 40 mg PO QHS 08/08/21 08/08/21 Unknown History Cinacalcet [Sensipar] 30 mg PO QDAY 08/08/21 08/08/21 Unknown History Furosemide [Lasix TAB] 80 mg PO QDAY 08/08/21 08/08/21 Unknown History Metoprolol Succinate [Toprol Xl] 25 mg PO DAILY 08/08/21 08/08/21 Unknown History Nortriptyline [Pamelor] 25 mg PO DAILY 08/08/21 08/08/21 Unknown History calcitrioL [Rocaltrol] 0.5 mcg PO QDAY 08/08/21 08/08/21 Unknown History calcitrioL [Rocaltrol] 0.5 mcg PO QDAY 08/08/21 08/08/21 Unknown History metOLazone [Zaroxolyn] 5 mg PO QDAY 08/08/21 08/08/21 Unknown History Aspirin [Aspirin BABY CHEW TAB] 81 mg PO QDAY 30 Days #30 tab.chew 08/14/21 Unknown Rx AtorvaSTATin [Lipitor] 40 mg PO QHS #90 tablet 08/14/21 Unknown Rx Clopidogrel [Plavix] 75 mg PO QDAY 30 Days #30 tablet 08/14/21 Unknown Rx Hydralazine HCl 50 mg PO BID 30 Days #30 tab 08/14/21 Unknown Rx amLODIPine 5 mg PO QDAY 30 Days #30 tablet 08/14/21 Unknown Rx Active Meds: Active Medications Acetaminophen (Acetaminophen 650 Mg Rect Supp) 650 mg [place] Q6H PRN PRN Reason: Pain MILD(1-3)/Fever >100.5/PÉREZ Dextrose (Dextrose 50% In Water (25gm) 50 Ml Syringe) 0 ml IV Q30MIN PRN; Protocol PRN Reason: Hypoglycemia Heparin Sodium (Porcine) (Heparin 5,000 Unit/1 Ml Vial) 5,000 unit SUB-Q Q8HR LADAN Last Admin: 08/17/21 07:41 Dose: 5,000 unit Documented by: Hydralazine HCl (Hydralazine 20 Mg/1 Ml Inj) 10 mg IV Q4HR PRN PRN Reason: Hypertension Last Admin: 08/17/21 04:44 Dose: 10 mg Documented by: Propofol (Diprivan 10 Mg/Ml) 1,000 mg in 100 mls @ 2.73 mls/hr IV TITR LADAN; Protocol Last Titration: 08/17/21 07:58 Dose: 15 mcg/kg/min, 8.19 mls/hr Documented by: Sodium Chloride (Nacl 0.9% 1000 Ml) 1,000 mls @ 125 mls/hr IV DIRECT LADAN Last Admin: 08/17/21 07:55 Dose: 125 mls/hr Documented by: Levofloxacin/Dextrose (Levaquin 250mg/50ml) 250 mg in 50 mls @ 50 mls/hr IV Q48 HR [facility] Insulin Human Lispro (Insulin Lispro 100 Unit/Ml) 0 unit SUB-Q ACHS LADAN; Protocol Last Admin: 08/17/21 07:52 Dose: 2 unit Documented by: Morphine Sulfate (Morphine 2 Mg/1 Ml Inj) 2 mg IV Q4H PRN PRN Reason: Pain, Moderate (4-6) Morphine Sulfate (Morphine 4 Mg/1 Ml Inj) 4 mg IV Q4H PRN PRN Reason: Pain , Severe (7-10) Naloxone HCl (Naloxone 0.4 Mg/1 Ml Inj) 0.4 mg IV Q2MIN PRN PRN Reason: Res Rate </= 8 or 02 SAT < 92% Last Admin: 08/16/21 18:53 Dose: 0.4 mg Documented by: Ondansetron HCl (Ondansetron 4 Mg/2 Ml Inj) 4 mg IV Q8H PRN PRN Reason: Nausea And Vomiting Sodium Chloride (Sodium Chloride 0.9% 10 Ml Flush Syringe) 10 ml IV BID [facility] Last Admin: 08/17/21 07:56 Dose: Not Given Documented by: Sodium Chloride (Sodium Chloride 0.9% 10 Ml Flush Syringe) 10 ml IV PRN PRN PRN Reason: LINE FLUSH Review of Systems ROS unobtainable: due to endotracheal tube, due to mental status Exam - Vital Signs Vital signs: Vital Signs Temp 97.9 F 08/16/21 18:56 Results - Lab Results 08/18/21 04:15 08/18/21 04:15 Most recent lab results ABG pH 7.505 (7.320-7.450) H 08/17/21 04:56 ABG pCO2 28.7 mm Hg 08/17/21 03:08 ABG pO2 45.2 mm Hg (80.0-90.0) L 08/17/21 03:08 ABG HCO3 23.2 mmol/L (20.0-26.0) 08/17/21 03:08 ABG O2 Saturation 99.6 (0-100) 08/17/21 04:56 Calcium 7.8 mg/dL (8.4-10.2) L 08/17/21 04:41 Assessment and Plan 1. ESRD: Patient is on maintenance HD, MWF schedule. Patient was switched to hemodialysis about 2 months ago 2/2 calciphylaxis. Meds dosage based on GFR. Last outpatient HD ?08/15. Hemodialysis: 2. FEN: Mild anion-gap metabolic acidosis, on HD. Monitor lytes and volume status. 3. Acute metabolic encephalopathy, POA: ?2/[address] head negative. Monitor. 4. H/o CAD s/p stent. Echo; EF 60%, LVH. 5. Anemia: Epogen with HD. 6. HTN: Monitor BP. 7. Type 2 DM. Subjective: Patient was seen and examined at the bedside. Examination: General appearance: well-developed, well-nourished, appears stated age, intubated, on vent HEENT: ATNC, pupils equal Neck: trachea midline Respiratory: Clear to Auscultation Cardiology: regular, S1S2, no murmur Gastrointestinal: normoactive bowel sounds, not tender, PD catheter noted Integumentary: b/l LE dressing noted Neurologic: not responding Ext: trace b/l LE edema : Noriega catheter Hemodialysis access: R IJ tunnel catheter
[2021-08-17 13:45] LABS: Mucus,Urine 1+ /HPF
--- NOTE | 2021-08-17 14:02 | Consultation ---
History of Present Illness History of present illness: pt w history of esrd on HD who was recently admitted with AMS thought to be secondary to narcotic overdose. Now returns with worsening mental status . She received narcan in the er without improvement. She was intubated for airway protection. Abg post intubation noted Past History Past Medical History: arthritis, diabetes, dialysis, ESRD, heart failure, hypertension, other (History of asthma) Past Surgical History: Other ( bilateral knee replacements, left shoulder surgery, chronic back pain and leg pain, recent varicose vein surgery) Social history: lives with family Family history: no significant family history Medications and Allergies Allergies Allergy/AdvReac Type Severity Reaction Status Date / Time Penicillins Allergy Unknown Itching Verified 08/11/21 17:39 Home Medications Medication Instructions Recorded Confirmed Last Taken Type Albuterol Sulfate [Ventolin Hfa] 2 puff IH Q6H PRN 08/30/18 08/11/21 10/08/18 History Insulin Lispro [HumaLOG VIAL] 0 units SQ AC #1 vial 10/06/18 08/11/21 10/08/18 Rx Aspirin EC [Halfprin EC] 81 mg PO QDAY #90 tablet 05/02/21 08/08/21 Unknown Rx AtorvaSTATin [Lipitor] 40 mg PO QHS 08/08/21 08/08/21 Unknown History Cinacalcet [Sensipar] 30 mg PO QDAY 08/08/21 08/08/21 Unknown History Furosemide [Lasix TAB] 80 mg PO QDAY 08/08/21 08/08/21 Unknown History Metoprolol Succinate [Toprol Xl] 25 mg PO DAILY 08/08/21 08/08/21 Unknown History Nortriptyline [Pamelor] 25 mg PO DAILY 08/08/21 08/08/21 Unknown History calcitrioL [Rocaltrol] 0.5 mcg PO QDAY 08/08/21 08/08/21 Unknown History calcitrioL [Rocaltrol] 0.5 mcg PO QDAY 08/08/21 08/08/21 Unknown History metOLazone [Zaroxolyn] 5 mg PO QDAY 08/08/21 08/08/21 Unknown History Aspirin [Aspirin BABY CHEW TAB] 81 mg PO QDAY 30 Days #30 tab.chew 08/14/21 Unknown Rx AtorvaSTATin [Lipitor] 40 mg PO QHS #90 tablet 08/14/21 Unknown Rx Clopidogrel [Plavix] 75 mg PO QDAY 30 Days #30 tablet 08/14/21 Unknown Rx Hydralazine HCl 50 mg PO BID 30 Days #30 tab 08/14/21 Unknown Rx amLODIPine 5 mg PO QDAY 30 Days #30 tablet 08/14/21 Unknown Rx Active Meds: Active Medications Acetaminophen (Acetaminophen 650 Mg Rect Supp) 650 mg [place] Q6H PRN PRN Reason: Pain MILD(1-3)/Fever >100.5/PÉREZ Dextrose (Dextrose 50% In Water (25gm) 50 Ml Syringe) 0 ml IV Q30MIN PRN; Protocol PRN Reason: Hypoglycemia Heparin Sodium (Porcine) (Heparin 5,000 Unit/1 Ml Vial) 5,000 unit SUB-Q Q8HR LADAN Last Admin: 08/17/21 07:41 Dose: 5,000 unit Documented by: Hydralazine HCl (Hydralazine 20 Mg/1 Ml Inj) 10 mg IV Q4HR PRN PRN Reason: Hypertension Last Admin: 08/17/21 04:44 Dose: 10 mg Documented by: Propofol (Diprivan 10 Mg/Ml) 1,000 mg in 100 mls @ 2.73 mls/hr IV TITR LADAN; Protocol Last Titration: 08/17/21 11:44 Dose: 10 mcg/kg/min, 5.46 mls/hr Documented by: Sodium Chloride (Nacl 0.9% 1000 Ml) 1,000 mls @ 125 mls/hr IV DIRECT LADAN Last Admin: 08/17/21 07:55 Dose: 125 mls/hr Documented by: Levofloxacin/Dextrose (Levaquin 250mg/50ml) 250 mg in 50 mls @ 50 mls/hr IV Q48HR LADAN Insulin Human Lispro (Insulin Lispro 100 Unit/Ml) 0 unit SUB-Q ACHS LADAN; Protocol Last Admin: 08/17/21 11:48 Dose: Not Given Documented by: Morphine Sulfate (Morphine 2 Mg/1 Ml Inj) 2 mg IV Q4H PRN PRN Reason: Pain, Moderate (4-6) Morphine Sulfate (Morphine 4 Mg/1 Ml Inj) 4 mg IV Q4H PRN PRN Reason: Pain , Severe (7-10) Naloxone HCl (Naloxone 0.4 Mg/1 Ml Inj) 0.4 mg IV Q2MIN PRN PRN Reason: Res Rate </= 8 or 02 SAT < 92% Last Admin: 08/16/21 18:53 Dose: 0.4 mg Documented by: Ondansetron HCl (Ondansetron 4 Mg/2 Ml Inj) 4 mg IV Q8H PRN PRN Reason: Nausea And Vomiting Sodium Chloride (Sodium Chloride 0.9% 10 Ml Flush Syringe) 10 ml IV BID LADAN Last Admin: 08/17/21 11:49 Dose: Not Given Documented by: Sodium Chloride (Sodium Chloride 0.9% 10 Ml Flush Syringe) 10 ml IV PRN PRN PRN Reason: LINE FLUSH Review of Systems ROS unobtainable: due to endotracheal tube Physical Examination Vital signs: Vital Signs Temp 97.9 F 08/16/21 18:56 General appearance: other (on vent) Eyes: non-icteric Effort: normal Ascultation: Bilateral: diminished breath sounds Gastrointestinal: normoactive bowel sounds, soft, non-tender, non-distended Integumentary: normal Extremities: no cyanosis other (on vent) Results - Laboratory Findings CBC and BMP: 08/17/21 04:41 08/17/21 04:41 ABG ABG pH 7.505 (7.320-7.450) H 08/17/21 04:56 POC ABG pCO2 28.4 mmHg (32.0-48.0) L 08/17/21 04:56 ABG pCO2 28.7 mm Hg 08/17/21 03:08 POC ABG pO2 184.8 mmHg (83-108) H 08/17/21 04:56 ABG pO2 45.2 mm Hg (80.0-90.0) L 08/17/21 03:08 POC ABG HCO3 21.9 08/17/21 04:56 ABG O2 Saturation 99.6 (0-100) 08/17/21 04:56 PT/INR, D-dimer PT 13.9 Sec. (12.2-14.9) 08/17/21 04:41 INR 0.96 (0.87-1.13) 08/17/21 04:41 Abnormal lab findings: Abnormal Labs 08/16/21 08/16/21 08/16/21 08:00 20:06 20:06 RBC 3.24 L Hgb Hct MCV 98 H RDW 17.8 H [place] % (Auto) [place] # (Auto) Seg Neutrophils % ABG pH POC ABG pCO2 POC ABG pO2 ABG pO2 ABG O2 Saturation ABG Hemoglobin ABG Oxyhemoglobin ABG Sodium ABG Glucose Oxyhemoglobin Carboxyhemoglobin Carbon Dioxide BUN 35 H Creatinine 6.1 H Glucose 175 H POC Glucose Calcium Arterial Blood Glucose Urine Blood Moderate A Urine WBC (Auto) > 182.0 H U Epithel Cells (Auto) 32.0 H 08/16/21 08/17/21 08/17/21 20:35 03:08 04:41 RBC 2.89 L Hgb 8.9 L Hct 28.3 L MCV 98 H RDW 17.5 H [place] % (Auto) 8.3 H [place] # (Auto) 0.9 H Seg Neutrophils % 71.2 H ABG pH 7.534 H 7.525 H POC ABG pCO2 POC ABG pO2 ABG pO2 248.5 H 45.2 L ABG O2 Saturation 99.4 H 81.2 L ABG Hemoglobin 10.1 L 8.8 L ABG Oxyhemoglobin ABG Sodium ABG Glucose Oxyhemoglobin 79.6 L Carboxyhemoglobin Carbon Dioxide BUN Creatinine Glucose POC Glucose Calcium Arterial Blood Glucose Urine Blood Urine WBC (Auto) U Epithel Cells (Auto) 08/17/21 08/17/21 08/17/21 04:41 04:56 07:50 RBC Hgb Hct MCV RDW [place] % (Auto) [place] # (Auto) Seg Neutrophils % ABG pH 7.505 H POC ABG pCO2 28.4 L POC ABG pO2 184.8 H ABG pO2 ABG O2 Saturation ABG Hemoglobin 10.0 L ABG Oxyhemoglobin 99.0 H ABG Sodium 135.0 L ABG Glucose 142 H Oxyhemoglobin Carboxyhemoglobin 0.3 L Carbon Dioxide 21 L BUN 39 H Creatinine 6.1 H Glucose 147 H POC Glucose 152 H Calcium 7.8 L Arterial Blood Glucose 142 H Urine Blood Urine WBC (Auto) U Epithel Cells (Auto) 08/17/21 11:47 RBC Hgb Hct MCV RDW [place] % (Auto) [place] # (Auto) Seg Neutrophils % ABG pH POC ABG pCO2 POC ABG pO2 ABG pO2 ABG O2 Saturation ABG Hemoglobin ABG Oxyhemoglobin ABG Sodium ABG Glucose Oxyhemoglobin Carboxyhemoglobin Carbon Dioxide BUN Creatinine Glucose POC Glucose 108 H Calcium Arterial Blood Glucose Urine Blood Urine WBC (Auto) U Epithel Cells (Auto) - Diagnostic Findings Chest x-ray: report reviewed, image reviewed Assessment and Plan - Patient Problems (1) Acute respiratory failure with hypoxemia Current Visit: Yes Status: Acute (2) ESRD on dialysis Current Visit: Yes Status: Acute (3) Acute metabolic encephalopathy Current Visit: No Status: Acute
--- NOTE | 2021-08-17 16:25 | Progress Note ---
Assessment and Plan -- acute respiratory failure: pt intubated likely from volume Overload, CC following -- Toxic encephalopathy Etiology is unclear. Possibly secondary to underlying infection. Urinalysis-reveals UTI. Patient placed on empiric IV antibiotics and IV fluid. -- Diabetes type 2 Patient placed on sliding scale insulin. We will monitor Accu-Cheks closely. -- HTN (hypertension) We will resume routine home medications once able to tolerate p.o. oral intake. Meanwhile we will place on IV hydralazine as needed for blood pressure control -- ESRD (end stage renal disease) We will place consult to nephrology for evaluation and for dialysis during this admission. --Urinary tract infection Patient commenced on empiric IV antibiotics. --DVT Px --Full code The high probability of a clinically significant, sudden or life threatening d eterioration of the [multiple] system(s) required my full and direct attention, intervention and personal management. The aggregate critical care time was [35] minutes. This time is in addition to time spent performing reported procedures but includes the following: [x] Data Review and interpretation [x] Patient assessment and monitoring of vital signs [x] Documentation [x] Medication orders and management Daily clinical course: 08/17/21: Pt intubated, CC and nephro consulted, follow cx, cont abx, gurded prognosis Subjective Date of service: 08/17/21 Interval history: Patient seen and examined. Medical records and medication list reviewed. No acute event overnight noted by the RN. Patient intubated, sedated Discussed plan of care at bedside with patient's RN. Objective - Exam Narrative Exam: GENERAL: well-developed and well-nourished elderly AAF lying on bed intubated. HEENT: Normocephalic. Atraumatic. No conjunctival congestion or icterus. Patient has moist mucous membranes. NECK: Supple. Trachea midline. CHEST/LUNGS: Clear to auscultated bilaterally, breathing nonlabored. No wheezes crackles or rhonchi. HEART/CARDIOVASCULAR: Regular in rate and rhythm. S1 and S2 positive. ABDOMEN: Abdomen is soft, nontender. Patient has normal bowel sounds. SKIN: There is no rash. Warm and dry. NEURO: No focal motor deficit. Follows command. MUSCULOSKELETAL: No joint effusion or tenderness. EXTRIMITY: No edema, no cyanosis or clubbing. PSYCH: Cooperative. - Constitutional Vitals: Vital Signs - 12hr 08/17/21 08/17/21 08/17/21 04:30 04:46 05:00 Pulse Rate 86 92 H 94 H Respiratory 16 13 16 Rate Blood Pressure 180/81 179/79 187/76 O2 Sat by Pulse 100 100 100 Oximetry 08/17/21 08/17/21 08/17/21 05:12 05:16 05:30 Pulse Rate 94 H 92 H Respiratory 14 14 Rate Blood Pressure 145/65 124/62 O2 Sat by Pulse 100 100 100 Oximetry 08/17/21 08/17/21 08/17/21 05:46 06:00 06:16 Pulse Rate 92 H 92 H 91 H Respiratory 14 14 14 Rate Blood Pressure 187/76 120/61 142/71 O2 Sat by Pulse 100 100 100 Oximetry 08/17/21 08/17/21 08/17/21 06:30 06:46 07:00 Pulse Rate 89 87 84 Respiratory 14 14 14 Rate Blood Pressure 128/62 116/62 112/64 O2 Sat by Pulse 100 100 100 Oximetry 08/17/21 08/17/21 08/17/21 07:16 07:30 07:46 Pulse Rate 84 88 86 Respiratory 14 14 14 Rate Blood Pressure 106/64 130/74 112/64 O2 Sat by Pulse 100 100 100 Oximetry 08/17/21 08/17/21 08/17/21 07:57 08:00 08:16 Pulse Rate 87 87 Respiratory 15 14 14 Rate Blood Pressure 131/66 125/63 O2 Sat by Pulse 100 100 Oximetry 08/17/21 08/17/21 08/17/21 08:30 08:34 08:46 Pulse Rate 84 85 94 H Respiratory 14 14 Rate Blood Pressure 127/67 133/68 133/68 O2 Sat by Pulse 100 100 100 Oximetry 08/17/21 08/17/21 08/17/21 09:00 09:16 09:30 Pulse Rate 89 88 88 Respiratory 14 14 14 Rate Blood Pressure 168/76 149/72 140/66 O2 Sat by Pulse 100 100 100 Oximetry 08/17/21 08/17/21 08/17/21 09:46 10:00 10:16 Pulse Rate 84 87 85 Respiratory 14 14 14 Rate Blood Pressure 133/65 141/67 119/63 O2 Sat by Pulse 100 100 100 Oximetry 08/17/21 08/17/2121 10:30 10:46 11:00 Pulse Rate 83 88 84 Respiratory 14 14 14 Rate Blood Pressure 128/63 123/64 149/68 O2 Sat by Pulse 100 100 100 Oximetry 08/17/21 08/17/21 08/17/21 11:16 11:30 11:46 Pulse Rate 83 82 81 Respiratory 14 14 14 Rate Blood Pressure 126/67 128/66 122/67 O2 Sat by Pulse 100 100 100 Oximetry 08/17/21 08/17/21 08/17/21 12:00 12:16 12:30 Pulse Rate 80 80 81 Respiratory 14 14 14 Rate Blood Pressure 131/68 140/68 131/68 O2 Sat by Pulse 100 100 100 Oximetry 08/17/21 08/17/21 08/17/21 12:46 13:00 13:15 Pulse Rate 81 88 87 Respiratory 14 16 12 Rate Blood Pressure 143/70 146/67 146/67 O2 Sat by Pulse 100 100 100 Oximetry 08/17/21 08/17/21 08/17/21 13:18 13:30 13:46 Pulse Rate 86 84 85 Respiratory 14 14 Rate Blood Pressure 159/76 159/76 150/80 O2 Sat by Pulse 100 100 100 Oximetry 08/17/21 08/17/21 08/17/21 14:00 14:16 14:30 Pulse Rate 82 81 80 Respiratory 14 14 14 Rate Blood Pressure 146/67 157/67 170/68 O2 Sat by Pulse 100 100 100 Oximetry 08/17/21 08/17/21 14:46 15:00 Pulse Rate 88 82 Respiratory 13 14 Rate Blood Pressure 158/71 170/80 O2 Sat by Pulse 100 100 Oximetry - Labs CBC & Chem 7: 08/18/21 20:42 08/18/21 04:15 Labs: Abnormal lab results 08/16/21 08/16/21 08/16/21 Range/Units 08:00 20:06 20:06 RBC 3.24 L (3.65-5.03) M/mm3 Hgb (10.1-14.3) gm/dl Hct (30.3-42.9) % MCV 98 H (79-97) fl RDW 17.8 H (13.2-15.2) % [place] % (Auto) (0.0-7.3) % [place] # (Auto) (0.0-0.8) K/mm3 Seg Neutrophils % (40.0-70.0) % ABG pH (7.350-7.450) pH Units POC ABG pCO2 (32.0-48.0) mmHg POC ABG pO2 (83-108) mmHg ABG pO2 (80.0-90.0) mm Hg ABG O2 Saturation (95.0-99.0) % ABG Hemoglobin (12.0-16.0) gm/dl ABG Oxyhemoglobin (94-98) ABG Sodium (136.0-145.0) mmol/L ABG Glucose (65-95) mg/dL Oxyhemoglobin (95.0-99.0) % Carboxyhemoglobin (0.5-1.5) Carbon Dioxide (22-30) mmol/L BUN 35 H (7-17) mg/dL Creatinine 6.1 H (0.6-1.2) mg/dL Glucose 175 H (65-100) mg/dL POC Glucose (70-105) mg/dL Calcium (8.4-10.2) mg/dL Arterial Blood Glucose (65-95) mg/dL Urine Blood Moderate A (Negative) Urine WBC (Auto) > 182.0 H (0.0-6.0) /HPF U Epithel Cells (Auto) 32.0 H (0-13.0) /HPF 08/16/21 08/17/21 08/17/21 Range/Units 20:35 03:08 04:41 RBC 2.89 L (3.65-5.03) M/mm3 Hgb 8.9 L (10.1-14.3) gm/dl Hct 28.3 L (30.3-42.9) % MCV 98 H (79-97) fl RDW 17.5 H (13.2-15.2) % [place] % (Auto) 8.3 H (0.0-7.3) % [place] # (Auto) 0.9 H (0.0-0.8) K/mm3 Seg Neutrophils % 71.2 H (40.0-70.0) % ABG pH 7.534 H 7.525 H (7.350-7.450) pH Units POC ABG pCO2 (32.0-48.0) mmHg POC ABG pO2 (83-108) mmHg ABG pO2 248.5 H 45.2 L (80.0-90.0) mm Hg ABG O2 Saturation 99.4 H 81.2 L (95.0-99.0) % ABG Hemoglobin 10.1 L 8.8 L (12.0-16.0) gm/dl ABG Oxyhemoglobin (94-98) ABG Sodium (136.0-145.0) mmol/L ABG Glucose (65-95) mg/dL Oxyhemoglobin 79.6 L (95.0-99.0) % Carboxyhemoglobin (0.5-1.5) Carbon Dioxide (22-30) mmol/L BUN (7-17) mg/dL Creatinine (0.6-1.2) mg/dL Glucose (65-100) mg/dL POC Glucose (70-105) mg/dL Calcium (8.4-10.2) mg/dL Arterial Blood Glucose (65-95) mg/dL Urine Blood (Negative) Urine WBC (Auto) (0.0-6.0) /HPF U Epithel Cells (Auto) (0-13.0) /HPF 08/17/21 08/17/21 08/17/21 Range/Units 04:41 04:56 07:50 RBC (3.65-5.03) M/mm3 Hgb (10.1-14.3) gm/dl Hct (30.3-42.9) % MCV (79-97) fl RDW (13.2-15.2) % [place] % (Auto) (0.0-7.3) % [place] # (Auto) (0.0-0.8) K/mm3 Seg Neutrophils % (40.0-70.0) % ABG pH 7.505 H (7.350-7.450) pH Units POC ABG pCO2 28.4 L (32.0-48.0) mmHg POC ABG pO2 184.8 H (83-108) mmHg ABG pO2 (80.0-90.0) mm Hg ABG O2 Saturation (95.0-99.0) % ABG Hemoglobin 10.0 L (12.0-16.0) gm/dl ABG Oxyhemoglobin 99.0 H (94-98) ABG Sodium 135.0 L (136.0-145.0) mmol/L ABG Glucose 142 H (65-95) mg/dL Oxyhemoglobin (95.0-99.0) % Carboxyhemoglobin 0.3 L (0.5-1.5) Carbon Dioxide 21 L (22-30) mmol/L BUN 39 H (7-17) mg/dL Creatinine 6.1 H (0.6-1.2) mg/dL Glucose 147 H (65-100) mg/dL POC Glucose 152 H (70-105) mg/dL Calcium 7.8 L (8.4-10.2) mg/dL Arterial Blood Glucose 142 H (65-95) mg/dL Urine Blood (Negative) Urine WBC (Auto) (0.0-6.0) /HPF U Epithel Cells (Auto) (0-13.0) /HPF 08/17/21 Range/Units 11:47 RBC (3.65-5.03) M/mm3 Hgb (10.1-14.3) gm/dl Hct (30.3-42.9) % MCV (79-97) fl RDW (13.2-15.2) % [place] % (Auto) (0.0-7.3) % [place] # (Auto) (0.0-0.8) K/mm3 Seg Neutrophils % (40.0-70.0) % ABG pH (7.350-7.450) pH Units POC ABG pCO2 (32.0-48.0) mmHg POC ABG pO2 (83-108) mmHg ABG pO2 (80.0-90.0) mm Hg ABG O2 Saturation (95.0-99.0) % ABG Hemoglobin (12.0-16.0) gm/dl ABG Oxyhemoglobin (94-98) ABG Sodium (136.0-145.0) mmol/L ABG Glucose (65-95) mg/dL Oxyhemoglobin (95.0-99.0) % Carboxyhemoglobin (0.5-1.5) Carbon Dioxide (22-30) mmol/L BUN (7-17) mg/dL Creatinine (0.6-1.2) mg/dL Glucose (65-100) mg/dL POC Glucose 108 H (70-105) mg/dL Calcium (8.4-10.2) mg/dL Arterial Blood Glucose (65-95) mg/dL Urine Blood (Negative) Urine WBC (Auto) (0.0-6.0) /HPF U Epithel Cells (Auto) (0-13.0) /HPF
[2021-08-18] MEDS: SODIUM CHLORIDE 0.9% 1000 ML 1,000 ML IV SCH (02:26)
[2021-08-18 05:22] LABS: Hematocrit 29.4 % (30.3-42.9); Hemoglobin 9.3 gm/dl (10.1-14.3)
[2021-08-18 05:36] LABS: Albumin 1.6 g/dL (3.9-5); Calcium 7.9 mg/dL (8.4-10.2)
[2021-08-18] MEDS: HEPARIN 5,000 UNIT/1 ML VIAL SUB-Q SCH ×2 (05:52→21:36)
[2021-08-18] MEDS ORDERED: SODIUM CHLORIDE 0.9% 100 ML IV PRN (08:05)
[2021-08-18] MEDS ORDERED: HEPARIN 10,000 UNITS/10 ML VIAL IV PRN (08:05)
--- NOTE | 2021-08-18 08:07 | Event Note ---
Date: 08/18/21 Hemodialysis consent obtained from her .
[2021-08-18] MEDS: FAMOTIDINE 20 MG/2 ML INJ IV SCH (11:42)
--- NOTE | 2021-08-18 12:43 | Progress Note ---
Assessment and Plan Stopped all sedation and discontinued order for this. Not sure why sedation was needed if patient was intubated for altered mental state and inability to protect airway. If waking up should have been extubated. On minimal vent settings with good sats. Once awake, will extubate. HD per renal. CCt 31 minutes. Subjective Date of service: 08/18/21 Interval history: Patient currently on HD, sedated on Diprovan 9. Moving somewhat in bed. Objective Vital Signs - 12hr 08/18/21 08/18/21 08/18/21 02:00 04:00 04:01 Temperature Pulse Rate 99 H 95 H 82 Respiratory 14 16 Rate Blood Pressure 182/80 173/74 124/62 O2 Sat by Pulse 100 100 100 Oximetry O2 Sat by Pulse Oximetry [ Anterior Bilateral] 08/18/21 08/18/21 08/18/21 04:34 06:01 09:16 Temperature Pulse Rate 95 H 88 Respiratory 15 14 14 Rate Blood Pressure 173/75 167/72 O2 Sat by Pulse 100 100 100 Oximetry O2 Sat by Pulse Oximetry [ Anterior Bilateral] 08/18/21 08/18/21 08/18/21 10:00 10:14 10:30 Temperature 97.3 F L Pulse Rate 98 H 90 89 Respiratory 14 Rate Blood Pressure 161/68 167/61 166/72 O2 Sat by Pulse Oximetry O2 Sat by Pulse 100 Oximetry [ Anterior Bilateral] 08/18/21 08/18/21 08/18/21 10:45 11:00 11:15 Temperature Pulse Rate 96 H 102 H 104 H Respiratory Rate Blood Pressure 102/63 108/60 108/54 O2 Sat by Pulse Oximetry O2 Sat by Pulse Oximetry [ Anterior Bilateral] 08/18/21 08/18/21 08/18/21 11:30 11:45 12:00 Temperature Pulse Rate 106 H 106 H 106 H Respiratory Rate Blood Pressure 91/57 99/62 94/59 O2 Sat by Pulse Oximetry O2 Sat by Pulse Oximetry [ Anterior Bilateral] 08/18/21 08/18/21 12:15 12:30 Temperature Pulse Rate 108 H 107 H Respiratory Rate Blood Pressure 101/59 105/60 O2 Sat by Pulse Oximetry O2 Sat by Pulse Oximetry [ Anterior Bilateral] Constitutional: other (on vent) Eyes: non-icteric Effort: normal Ascultation: Bilateral: diminished breath sounds Gastrointestinal: normoactive bowel sounds, soft, non-tender, non-distended Integumentary: normal Extremities: no cyanosis Neurologic: other (on vent) CBC and BMP: 08/18/21 04:15 08/18/21 04:15 ABG, PT/INR, D-dimer: ABG ABG pH 7.373 (7.320-7.450) 08/18/21 04:30 POC ABG pCO2 33.4 mmHg (32.0-48.0) 08/18/21 04:30 ABG pCO2 28.7 mm Hg 08/17/21 03:08 POC ABG pO2 124.7 mmHg (83-108) H 08/18/21 04:30 ABG pO2 45.2 mm Hg (80.0-90.0) L 08/17/21 03:08 POC ABG HCO3 19.0 08/18/21 04:30 ABG O2 Saturation 98.4 (0-100) 08/18/21 04:30 PT/INR, D-dimer PT 13.9 Sec. (12.2-14.9) 08/17/21 04:41 INR 0.96 (0.87-1.13) 08/17/21 04:41 Abnormal lab findings: Abnormal Labs 08/16/21 08/16/21 08/16/21 08:00 20:06 20:06 RBC 3.24 L Hgb Hct MCV 98 H RDW 17.8 H [place] % (Auto) [place] # (Auto) Seg Neutrophils % ABG pH POC ABG pCO2 POC ABG pO2 ABG pO2 ABG O2 Saturation ABG Hemoglobin ABG Oxyhemoglobin ABG Sodium ABG Glucose Oxyhemoglobin Carboxyhemoglobin Carbon Dioxide BUN 35 H Creatinine 6.1 H Glucose 175 H POC Glucose Calcium Alkaline Phosphatase Total Protein Albumin Arterial Blood Glucose Urine Blood Moderate A Urine WBC (Auto) > 182.0 H U Epithel Cells (Auto) 32.0 H 08/16/21 08/17/21 08/17/21 20:35 03:08 04:41 RBC 2.89 L Hgb 8.9 L Hct 28.3 L MCV 98 H RDW 17.5 H [place] % (Auto) 8.3 H [place] # (Auto) 0.9 H Seg Neutrophils % 71.2 H ABG pH 7.534 H 7.525 H POC ABG pCO2 POC ABG pO2 ABG pO2 248.5 H 45.2 L ABG O2 Saturation 99.4 H 81.2 L ABG Hemoglobin 10.1 L 8.8 L ABG Oxyhemoglobin ABG Sodium ABG Glucose Oxyhemoglobin 79.6 L Carboxyhemoglobin Carbon Dioxide BUN Creatinine Glucose POC Glucose Calcium Alkaline Phosphatase Total Protein Albumin Arterial Blood Glucose Urine Blood Urine WBC (Auto) U Epithel Cells (Auto) 08/17/21 08/17/21 08/17/21 04:41 04:56 07:50 RBC Hgb Hct MCV RDW [place] % (Auto) [place] # (Auto) Seg Neutrophils % ABG pH 7.505 H POC ABG pCO2 28.4 L POC ABG pO2 184.8 H ABG pO2 ABG O2 Saturation ABG Hemoglobin 10.0 L ABG Oxyhemoglobin 99.0 H ABG Sodium 135.0 L ABG Glucose 142 H Oxyhemoglobin Carboxyhemoglobin 0.3 L Carbon Dioxide 21 L BUN 39 H Creatinine 6.1 H Glucose 147 H POC Glucose 152 H Calcium 7.8 L Alkaline Phosphatase Total Protein Albumin Arterial Blood Glucose 142 H Urine Blood Urine WBC (Auto) U Epithel Cells (Auto) 08/17/21 08/18/21 08/18/21 11:47 04:15 04:15 RBC Hgb 9.3 L Hct 29.4 L MCV RDW [place] % (Auto) [place] # (Auto) Seg Neutrophils % ABG pH POC ABG pCO2 POC ABG pO2 ABG pO2 ABG O2 Saturation ABG Hemoglobin ABG Oxyhemoglobin ABG Sodium ABG Glucose Oxyhemoglobin Carboxyhemoglobin Carbon Dioxide 17 L BUN 40 H Creatinine 6.0 H Glucose POC Glucose 108 H Calcium 7.9 L Alkaline Phosphatase 144 H Total Protein 6.1 L Albumin 1.6 L Arterial Blood Glucose Urine Blood Urine WBC (Auto) U Epithel Cells (Auto) 08/18/21 04:30 RBC Hgb Hct MCV RDW [place] % (Auto) [place] # (Auto) Seg Neutrophils % ABG pH POC ABG pCO2 POC ABG pO2 124.7 H ABG pO2 ABG O2 Saturation ABG Hemoglobin 10.1 L ABG Oxyhemoglobin 98.1 H ABG Sodium 135.5 L ABG Glucose Oxyhemoglobin Carboxyhemoglobin 0 L Carbon Dioxide BUN Creatinine Glucose POC Glucose Calcium Alkaline Phosphatase Total Protein Albumin Arterial Blood Glucose Urine Blood Urine WBC (Auto) U Epithel Cells (Auto)
--- NOTE | 2021-08-18 13:01 | Progress Note ---
Assessment and Plan 1. ESRD: Patient is on maintenance HD, MWF schedule. Patient was switched to hemodialysis about 2 months ago 2/2 calciphylaxis. Meds dosage based on GFR. Last outpatient HD ?08/15. Hemodialysis: 08/18. 2. FEN: Mild anion-gap metabolic acidosis, on HD. Monitor lytes and volume status. 3. Acute metabolic encephalopathy, POA: ?2/[address] head negative. Monitor. 4. H/o CAD s/p stent. Echo; EF 60%, LVH. 5. Anemia: Epogen with HD. 6. HTN: Monitor BP. 7. Type 2 DM. Subjective: Patient was seen and examined at the bedside. Examination: General appearance: well-developed, well-nourished, appears stated age, intubated, on vent HEENT: ATNC, pupils equal Neck: trachea midline Respiratory: Clear to Auscultation Cardiology: regular, S1S2, no murmur Gastrointestinal: normoactive bowel sounds, not tender, PD catheter noted Integumentary: b/l LE dressing noted Neurologic: not responding Ext: trace b/l LE edema : Noriega catheter Hemodialysis access: R IJ tunnel catheter Subjective Date of service: 08/18/21 Objective - Vital Signs Vital signs: Vital Signs - 12hr 08/18/21 08/18/21 08/18/21 02:00 04:00 04:01 Temperature Pulse Rate 99 H 95 H 82 Respiratory 14 16 Rate Blood Pressure 182/80 173/74 124/62 O2 Sat by Pulse 100 100 100 Oximetry O2 Sat by Pulse Oximetry [ Anterior Bilateral] 08/18/21 08/18/21 08/18/21 04:34 06:01 08:01 Temperature Pulse Rate 95 H 91 H Respiratory 15 14 15 Rate Blood Pressure 173/75 158/78 O2 Sat by Pulse 100 100 100 Oximetry O2 Sat by Pulse Oximetry [ Anterior Bilateral] 08/18/21 08/18/21 08/18/21 09:16 10:00 10:01 Temperature 97.3 F L Pulse Rate 88 98 H 92 H Respiratory 14 14 14 Rate Blood Pressure 167/72 161/68 173/77 O2 Sat by Pulse 100 95 100 Oximetry O2 Sat by Pulse 100 Oximetry [ Anterior Bilateral] 08/18/21 08/18/21 08/18/21 10:14 10:30 10:45 Temperature Pulse Rate 90 89 96 H Respiratory Rate Blood Pressure 167/61 166/72 102/63 O2 Sat by Pulse Oximetry O2 Sat by Pulse Oximetry [ Anterior Bilateral] 08/18/21 08/18/21 08/18/21 11:00 11:15 11:30 Temperature Pulse Rate 102 H 104 H 106 H Respiratory Rate Blood Pressure 108/60 108/54 91/57 O2 Sat by Pulse Oximetry O2 Sat by Pulse Oximetry [ Anterior Bilateral] 08/18/21 08/18/21 08/18/21 11:45 12:00 12:01 Temperature Pulse Rate 106 H 106 H 107 H Respiratory 11 L Rate Blood Pressure 99/62 94/59 108/54 O2 Sat by Pulse 95 100 Oximetry O2 Sat by Pulse Oximetry [ Anterior Bilateral] 08/18/21 08/18/21 08/18/21 12:15 12:30 12:45 Temperature Pulse Rate 108 H 107 H 108 H Respiratory Rate Blood Pressure 101/59 105/60 89/55 O2 Sat by Pulse Oximetry O2 Sat by Pulse Oximetry [ Anterior Bilateral] - Lab 08/18/21 04:15 08/18/21 04:15 Most recent lab results ABG pH 7.373 (7.320-7.450) 08/18/21 04:30 ABG pCO2 28.7 mm Hg 08/17/21 03:08 ABG pO2 45.2 mm Hg (80.0-90.0) L 08/17/21 03:08 ABG HCO3 23.2 mmol/L (20.0-26.0) 08/17/21 03:08 ABG O2 Saturation 98.4 (0-100) 08/18/21 04:30 Calcium 7.9 mg/dL (8.4-10.2) L 08/18/21 04:15 Medications & Allergies - Medications Allergies/Adverse Reactions: Allergies Penicillins Allergy (Unknown, Verified 08/11/21 17:39) Itching Home Medications: Home Medications Medication Instructions Recorded Confirmed Last Taken Type Albuterol Sulfate [Ventolin Hfa] 2 puff IH Q6H PRN 08/30/18 08/11/21 10/08/18 History Insulin Lispro [HumaLOG VIAL] 0 units SQ AC #1 vial 10/06/18 08/11/21 10/08/18 Rx Aspirin EC [Halfprin EC] 81 mg PO QDAY #90 tablet 05/02/21 08/08/21 Unknown Rx AtorvaSTATin [Lipitor] 40 mg PO QHS 08/08/21 08/08/21 Unknown History Cinacalcet [Sensipar] 30 mg PO QDAY 08/08/21 08/08/21 Unknown History Furosemide [Lasix TAB] 80 mg PO QDAY 08/08/21 08/08/21 Unknown History Metoprolol Succinate [Toprol Xl] 25 mg PO DAILY 08/08/21 08/08/21 Unknown History Nortriptyline [Pamelor] 25 mg PO DAILY 08/08/21 08/08/21 Unknown History calcitrioL [Rocaltrol] 0.5 mcg PO QDAY 08/08/21 08/08/21 Unknown History calcitrioL [Rocaltrol] 0.5 mcg PO QDAY 08/08/21 08/08/21 Unknown History metOLazone [Zaroxolyn] 5 mg PO QDAY 08/08/21 08/08/21 Unknown History Aspirin [Aspirin BABY CHEW TAB] 81 mg PO QDAY 30 Days #30 tab.chew 08/14/21 Unknown Rx AtorvaSTATin [Lipitor] 40 mg PO QHS #90 tablet 08/14/21 Unknown Rx Clopidogrel [Plavix] 75 mg PO QDAY 30 Days #30 tablet 08/14/21 Unknown Rx Hydralazine HCl 50 mg PO BID 30 Days #30 tab 08/14/21 Unknown Rx amLODIPine 5 mg PO QDAY 30 Days #30 tablet 08/14/21 Unknown Rx Active Medications: Generic Name Dose Route Start Last Admin Trade Name Freq PRN Reason Stop Dose Admin Acetaminophen 650 mg 08/16/21 21:28 Acetaminophen 650 Mg Rect Supp SC Q6H PRN Pain MILD(1-3)/Fever >100.5/PÉREZ Dextrose 0 ml 08/16/21 21:28 08/17/21 16:54 Dextrose 50% In Water (25gm) 50 Ml Syringe IV 10 ml Q30MIN PRN Administration Hypoglycemia Protocol Famotidine 10 mg 08/18/21 10:00 08/18/21 11:42 Famotidine 20 Mg/2 Ml Inj IV Not Given BID LADAN Heparin Sodium (Porcine) 5,000 unit 08/16/21 22:00 08/18/21 05:52 Heparin 5,000 Unit/1 Ml Vial SUB-Q 5,000 unit Q8HR LADAN Administration Heparin Sodium (Porcine) 3,000 unit 08/18/21 08:05 Heparin 10,000 Units/10 Ml Vial IV TITO PRN hemodialysis Hydralazine HCl 10 mg 08/17/21 04:30 08/17/21 04:44 Hydralazine 20 Mg/1 Ml Inj IV 10 mg Q4HR PRN Administration Hypertension Levofloxacin/Dextrose 250 mg in 50 mls @ 50 mls/hr 08/18/21 10:00 08/18/21 11:42 Levaquin 250mg/50ml IV Not Given Q48HR [facility] Sodium Chloride 100 mls @ 999 mls/hr 08/18/21 08:05 Nacl 0.9% IV TITO PRN Hypotension Insulin Human Lispro 0 unit 08/18/21 12:00 Insulin Lispro 100 Unit/Ml SUB-Q Q6HR [facility] Protocol Morphine Sulfate 2 mg 08/16/21 21:28 Morphine 2 Mg/1 Ml Inj IV Q4H PRN Pain, Moderate (4-6) Morphine Sulfate 4 mg 08/16/21 21:28 Morphine 4 Mg/1 Ml Inj IV Q4H PRN Pain , Severe (7-10) Naloxone HCl 0.4 mg 08/16/21 20:05 08/16/21 18:53 Naloxone 0.4 Mg/1 Ml Inj IV 0.4 mg Q2MIN PRN Administration Res Rate </= 8 or 02 SAT < 92% Ondansetron HCl 4 mg 08/16/21 21:28 Ondansetron 4 Mg/2 Ml Inj IV Q8H PRN Nausea And Vomiting Sodium Chloride 10 ml 08/16/21 22:00 08/18/21 11:43 Sodium Chloride 0.9% 10 Ml Flush Syringe IV Not Given BID LADAN Sodium Chloride 10 ml 08/16/21 21:28 Sodium Chloride 0.9% 10 Ml Flush Syringe IV PRN PRN LINE FLUSH
[2021-08-18] MEDS: INSULIN LISPRO 100 UNIT/ML SUB-Q SCH ×2 (14:13→23:23)
--- NOTE | 2021-08-18 16:16 | Progress Note ---
Assessment and Plan -- acute respiratory failure: pt intubated likely from volume Overload, CC following -- Toxic encephalopathy Etiology is unclear. Possibly secondary to underlying infection. Urinalysis-reveals UTI. Patient placed on empiric IV antibiotics and IV fluid. -- Diabetes type 2 Patient placed on sliding scale insulin. We will monitor Accu-Cheks closely. -- HTN (hypertension) We will resume routine home medications once able to tolerate p.o. oral intake. Meanwhile we will place on IV hydralazine as needed for blood pressure control -- ESRD (end stage renal disease) We will place consult to nephrology for evaluation and for dialysis during this admission. --Anemia of CD, transfused with HD --Urinary tract infection Patient commenced on empiric IV antibiotics. --DVT Px --Full code The high probability of a clinically significant, sudden or life threatening deterioration of the [multiple] system(s) required my full and direct attention, intervention and personal management. The aggregate critical care time was [35] minutes. This time is in addition to time spent performing reported procedures but includes the following: [x] Data Review and interpretation [x] Patient assessment and monitoring of vital signs [x] Documentation [x] Medication orders and management Daily clinical course: 08/17/21: Pt intubated, CC and nephro consulted, follow cx, cont abx, gurded prognosis 08/18/21: s/p HD today, plan to d/c all sedation and to monitor mental status, follow am lab. s/p one unit PRBC today Subjective Date of service: 08/18/21 Interval history: Patient seen and examined. Medical records and medication list reviewed. No acute event overnight noted by the RN. Patient intubated, sedated Discussed plan of care at bedside with patient's RN. Objective - Exam Narrative Exam: GENERAL: well-developed and well-nourished elderly AAF lying on bed intubated. HEENT: Normocephalic. Atraumatic. No conjunctival congestion or icterus. Patient has moist mucous membranes. NECK: Supple. Trachea midline. CHEST/LUNGS: Clear to auscultated bilaterally, breathing nonlabored. No wheezes crackles or rhonchi. HEART/CARDIOVASCULAR: Regular in rate and rhythm. S1 and S2 positive. ABDOMEN: Abdomen is soft, nontender. Patient has normal bowel sounds. SKIN: There is no rash. Warm and dry. NEURO: No focal motor deficit. Follows command. MUSCULOSKELETAL: No joint effusion or tenderness. EXTRIMITY: No edema, no cyanosis or clubbing. PSYCH: Cooperative. - Constitutional Vitals: Vital Signs - 12hr 08/18/21 08/18/21 08/18/21 04:34 06:01 08:01 Temperature Pulse Rate 95 H 91 H Respiratory 15 14 15 Rate Blood Pressure 173/75 158/78 O2 Sat by Pulse 100 100 100 Oximetry O2 Sat by Pulse Oximetry [ Anterior Bilateral] 08/18/21 08/18/21 08/18/21 09:16 10:00 10:01 Temperature 97.3 F L Pulse Rate 88 98 H 92 H Respiratory 14 14 Rate Blood Pressure 167/72 161/68 173/77 O2 Sat by Pulse 100 95 100 Oximetry O2 Sat by Pulse 100 Oximetry [ Anterior Bilateral] 08/18/21 08/18/21 08/18/21 10:14 10:30 10:45 Temperature Pulse Rate 90 89 96 H Respiratory Rate Blood Pressure 167/61 166/72 102/63 O2 Sat by Pulse Oximetry O2 Sat by Pulse Oximetry [ Anterior Bilateral] 08/18/21 08/18/21 08/18/21 11:00 11:15 11:30 Temperature Pulse Rate 102 H 104 H 106 H Respiratory Rate Blood Pressure 108/60 108/54 91/57 O2 Sat by Pulse Oximetry O2 Sat by Pulse Oximetry [ Anterior Bilateral] 08/18/21 08/18/21 08/18/21 11:45 12:00 12:01 Temperature Pulse Rate 106 H 106 H 107 H Respiratory 11 L Rate Blood Pressure 99/62 94/59 108/54 O2 Sat by Pulse 95 100 Oximetry O2 Sat by Pulse Oximetry [ Anterior Bilateral] 08/18/21 08/18/21 08/18/21 12:15 12:30 12:45 Temperature Pulse Rate 108 H 107 H 108 H Respiratory Rate Blood Pressure 101/59 105/60 89/55 O2 Sat by Pulse Oximetry O2 Sat by Pulse Oximetry [ Anterior Bilateral] 08/18/21 08/18/21 08/18/21 13:00 13:01 13:14 Temperature Pulse Rate 104 H 106 H 107 H Respiratory Rate Blood Pressure 115/61 115/61 120/68 O2 Sat by Pulse 100 Oximetry O2 Sat by Pulse Oximetry [ Anterior Bilateral] 08/18/21 13:27 Temperature 97.1 F L Pulse Rate 100 H Respiratory 14 Rate Blood Pressure 146/72 O2 Sat by Pulse Oximetry O2 Sat by Pulse 100 Oximetry [ Anterior Bilateral] - Labs CBC & Chem 7: 08/18/21 20:42 08/18/21 04:15 Labs: Abnormal lab results 08/18/21 08/18/21 08/18/21 Range/Units 04:15 04:15 04:30 Hgb 9.3 L (10.1-14.3) gm/dl Hct 29.4 L (30.3-42.9) % POC ABG pO2 124.7 H (83-108) mmHg ABG Hemoglobin 10.1 L (12.0-17.5) ABG Oxyhemoglobin 98.1 H (94-98) ABG Sodium 135.5 L (136.0-145.0) mmol/L Carboxyhemoglobin 0 L (0.5-1.5) Carbon Dioxide 17 L (22-30) mmol/L BUN 40 H (7-17) mg/dL Creatinine 6.0 H (0.6-1.2) mg/dL Calcium 7.9 L (8.4-10.2) mg/dL Alkaline Phosphatase 144 H (35-129) units/L Total Protein 6.1 L (6.3-8.2) g/dL Albumin 1.6 L (3.9-5) g/dL
[2021-08-18] MEDS ORDERED: SODIUM CHLORIDE 0.9% 500 ML 500 ML ONE (19:18)
[2021-08-18] MEDS ORDERED: SODIUM CHLORIDE 0.9% 500 ML 500 ML IV ONE (19:45)
[2021-08-18 21:02] LABS: Hematocrit 21.5 % (30.3-42.9); Hemoglobin 6.9 gm/dl (10.1-14.3)
[2021-08-18] MEDS ORDERED: CEFEPIME/NS 2 GM/100 ML 2 GM/100 ML BAG IV SCH (22:00)
[2021-08-19] MEDS: INSULIN LISPRO 100 UNIT/ML SUB-Q SCH ×2 (02:47→11:54)
[2021-08-19] MEDS: HEPARIN 5,000 UNIT/1 ML VIAL SUB-Q SCH ×2 (02:47→14:00)
[2021-08-19] MEDS: FAMOTIDINE 20 MG/2 ML INJ IV SCH (02:47)
[2021-08-19 08:31] LABS: Hematocrit 23.4 % (30.3-42.9); Hemoglobin 7.5 gm/dl (10.1-14.3); Mean Corpuscular HGB Conc 32 % (30-34); Mean Corpuscular Volume 92 fl (79-97); Red Blood Count 2.55 M/mm3 (3.65-5.03)
[2021-08-19 08:32] LABS: Platelet Count 279 K/mm3 (140-440); Red Cell Distribution Width 22.1 % (13.2-15.2)
[2021-08-19 08:39] LABS: Calcium 7.1 mg/dL (8.4-10.2)
--- NOTE | 2021-08-19 09:15 | Progress Note ---
Assessment and Plan 1. ESRD: Patient is on maintenance HD, MWF schedule. Patient was switched to hemodialysis about 2 months ago 2/2 calciphylaxis. Meds dosage based on GFR. Last outpatient HD ?08/15. Hemodialysis: 08/18. 2. FEN: Mild anion-gap metabolic acidosis, on HD. Monitor lytes and volume status. 3. Acute metabolic encephalopathy, POA: ?2/[address] head negative. Monitor. 4. H/o CAD s/p stent. Echo; EF 60%, LVH. 5. Anemia: Epogen with HD. 6. HTN: Monitor BP. 7. Type 2 DM. Subjective: Patient was seen and examined at the bedside. Examination: General appearance: well-developed, well-nourished, appears stated age HEENT: ATNC, pupils equal Neck: trachea midline Respiratory: Clear to Auscultation Cardiology: regular, S1S2, no murmur Gastrointestinal: normoactive bowel sounds, not tender, PD catheter noted Integumentary: b/l LE dressing noted Neurologic: lethargic, non-verbal Ext: trace b/l LE edema : Noriega catheter Hemodialysis access: R IJ tunnel catheter Subjective Date of service: 08/19/21 Objective - Vital Signs Vital signs: Vital Signs - 12hr 08/18/21 08/18/21 08/18/21 21:21 21:31 21:41 Temperature Pulse Rate 113 H 112 H 111 H Pulse Rate [ Left Radial] Respiratory 11 L 11 L 15 Rate Blood Pressure 109/52 109/52 109/52 O2 Sat by Pulse 92 Oximetry 08/18/21 08/18/21 08/18/21 21:51 22:01 22:11 Temperature Pulse Rate 110 H 112 H 115 H Pulse Rate [ Left Radial] Respiratory 12 10 L 12 Rate Blood Pressure 109/52 109/52 109/52 O2 Sat by Pulse 100 100 100 Oximetry 08/18/21 08/18/21 08/18/21 22:21 22:31 22:41 Temperature Pulse Rate 111 H 112 H 111 H Pulse Rate [ Left Radial] Respiratory 15 11 L 11 L Rate Blood Pressure 109/52 109/52 109/52 O2 Sat by Pulse 100 100 100 Oximetry 08/18/21 08/18/21 08/18/21 22:51 23:01 23:10 Temperature Pulse Rate 111 H 110 H 110 H Pulse Rate [ Left Radial] Respiratory 12 10 L 13 Rate Blood Pressure 109/52 109/52 109/52 O2 Sat by Pulse 100 100 100 Oximetry 08/18/21 08/18/21 08/18/21 23:11 23:13 23:17 Temperature 98.3 F Pulse Rate 110 H 111 H Pulse Rate [ Left Radial] Respiratory 14 15 Rate Blood Pressure 117/45 117/45 O2 Sat by Pulse 100 100 Oximetry 08/18/21 08/18/21 08/18/21 23:21 23:31 23:33 Temperature 98.0 F Pulse Rate 109 H 111 H 108 H Pulse Rate [ Left Radial] Respiratory 17 13 13 Rate Blood Pressure 102/54 102/54 108/44 O2 Sat by Pulse 100 100 100 Oximetry 08/18/21 08/19/21 08/19/21 23:45 00:00 00:01 Temperature Pulse Rate 110 H 110 H 109 H Pulse Rate [ Left Radial] Respiratory 14 4 L 14 Rate Blood Pressure 117/45 127/58 118/46 O2 Sat by Pulse 100 100 100 Oximetry 08/19/21 08/19/21 08/19/21 00:15 00:31 00:32 Temperature 98.7 F Pulse Rate 108 H 109 H Pulse Rate [ Left Radial] Respiratory 20 14 Rate Blood Pressure 108/44 126/64 O2 Sat by Pulse 100 100 Oximetry 08/19/21 08/19/21 08/19/21 00:41 00:51 01:00 Temperature Pulse Rate 111 H 110 H 110 H Pulse Rate [ Left Radial] Respiratory 11 L 13 15 Rate Blood Pressure 130/62 144/63 130/62 O2 Sat by Pulse 100 100 100 Oximetry 08/19/21 08/19/21 08/19/21 01:10 02:00 02:25 Temperature Pulse Rate 112 H 112 H Pulse Rate [ Left Radial] Respiratory 21 Rate Blood Pressure 144/63 O2 Sat by Pulse 100 79 L Oximetry 08/19/21 08/19/21 08/19/21 02:31 02:41 02:51 Temperature Pulse Rate Pulse Rate [ Left Radial] Respiratory Rate Blood Pressure 164/59 163/68 165/75 O2 Sat by Pulse 99 100 94 Oximetry 08/19/21 08/19/21 08/19/21 03:01 03:11 03:21 Temperature Pulse Rate Pulse Rate [ Left Radial] Respiratory Rate Blood Pressure 165/75 165/75 165/75 O2 Sat by Pulse 99 85 100 Oximetry 08/19/21 08/19/21 08/19/21 03:24 03:31 03:41 Temperature 99.5 F Pulse Rate Pulse Rate [ Left Radial] Respiratory Rate Blood Pressure 165/75 184/52 O2 Sat by Pulse 100 90 Oximetry 08/19/21 08/19/21 08/19/21 03:51 04:00 04:01 Temperature Pulse Rate Pulse Rate [ 110 H Left Radial] Respiratory 16 Rate Blood Pressure 155/96 155/96 O2 Sat by Pulse 100 100 100 Oximetry 08/19/21 08/19/21 08/19/21 04:11 04:21 04:23 Temperature Pulse Rate Pulse Rate [ Left Radial] Respiratory Rate Blood Pressure 169/97 166/72 164/59 O2 Sat by Pulse 100 100 100 Oximetry 08/19/21 08/19/21 08/19/21 04:31 04:41 04:51 Temperature Pulse Rate Pulse Rate [ Left Radial] Respiratory Rate Blood Pressure 166/72 159/69 160/74 O2 Sat by Pulse 100 100 100 Oximetry 08/19/21 08/19/21 08/19/21 05:01 05:11 05:21 Temperature Pulse Rate Pulse Rate [ Left Radial] Respiratory Rate Blood Pressure 160/74 169/65 157/80 O2 Sat by Pulse 70 L 100 100 Oximetry 08/19/21 08/19/21 08/19/21 05:31 06:38 07:46 Temperature 99.3 F Pulse Rate Pulse Rate [ Left Radial] Respiratory Rate Blood Pressure 157/80 164/90 O2 Sat by Pulse 99 Oximetry 08/19/21 08:12 Temperature Pulse Rate 113 H Pulse Rate [ Left Radial] Respiratory Rate Blood Pressure 151/68 O2 Sat by Pulse 100 Oximetry - Lab 08/19/21 08:06 08/19/21 08:06 Most recent lab results ABG pH 7.373 (7.320-7.450) 08/18/21 04:30 ABG pCO2 28.7 mm Hg 08/17/21 03:08 ABG pO2 45.2 mm Hg (80.0-90.0) L 08/17/21 03:08 ABG HCO3 23.2 mmol/L (20.0-26.0) 08/17/21 03:08 ABG O2 Saturation 98.4 (0-100) 08/18/21 04:30 Calcium 7.1 mg/dL (8.4-10.2) L 08/19/21 08:06 Medications & Allergies - Medications Allergies/Adverse Reactions: Allergies Penicillins Allergy (Unknown, Verified 08/11/21 17:39) Itching Home Medications: Home Medications Medication Instructions Recorded Confirmed Last Taken Type Albuterol Sulfate [Ventolin Hfa] 2 puff IH Q6H PRN 08/30/18 08/18/21 10/08/18 History Insulin Lispro [HumaLOG VIAL] 0 units SQ AC #1 vial 10/06/18 08/18/21 08/16/21 Rx Cinacalcet [Sensipar] 30 mg PO QDAY 08/08/21 08/18/21 Unknown History Furosemide [Lasix TAB] 80 mg PO QDAY 08/08/21 08/18/21 Unknown History Metoprolol Succinate [Toprol Xl] 25 mg PO DAILY 08/08/21 08/18/21 Unknown History Nortriptyline [Pamelor] 25 mg PO DAILY 08/08/21 08/18/21 Unknown History calcitrioL [Rocaltrol] 0.5 mcg PO QDAY 08/08/21 08/18/21 Unknown History metOLazone [Zaroxolyn] 5 mg PO QDAY 08/08/21 08/18/21 Unknown History Aspirin [Aspirin BABY CHEW TAB] 81 mg PO QDAY 30 Days #30 tab.chew 08/14/21 08/18/21 Unknown Rx AtorvaSTATin [Lipitor] 40 mg PO QHS #90 tablet 08/14/21 08/18/21 Unknown Rx Clopidogrel [Plavix] 75 mg PO QDAY 30 Days #30 tablet 08/14/21 08/18/21 Unknown Rx Hydralazine HCl 50 mg PO BID 30 Days #30 tab 08/14/21 08/18/21 Unknown Rx amLODIPine 5 mg PO QDAY 30 Days #30 tablet 08/14/21 08/18/21 Unknown Rx Active Medications: Generic Name Dose Route Start Last Admin Trade Name Freq PRN Reason Stop Dose Admin Acetaminophen 650 mg 08/16/21 21:28 Acetaminophen 650 Mg Rect Supp [place] Q6H PRN Pain MILD(1-3)/Fever >100.5/PÉREZ Dextrose 0 ml 08/16/21 21:28 08/17/21 16:54 Dextrose 50% In Water (25gm) 50 Ml Syringe IV 10 ml Q30MIN PRN Administration Hypoglycemia Protocol Heparin Sodium (Porcine) 5,000 unit 08/16/21 22:00 08/19/21 02:47 Heparin 5,000 Unit/1 Ml Vial SUB-Q Not Given Q8HR [facility] Heparin Sodium (Porcine) 3,000 unit 08/18/21 08:05 Heparin 10,000 Units/10 Ml Vial IV TITO PRN hemodialysis Hydralazine HCl 10 mg 08/17/21 04:30 08/17/21 04:44 Hydralazine 20 Mg/1 Ml Inj IV 10 mg Q4HR PRN Administration Hypertension Sodium Chloride 100 mls @ 999 mls/hr 08/18/21 08:05 Nacl 0.9% IV TITO PRN Hypotension Cefepime HCl 2 gm in 100 mls @ 200 mls/hr 08/18/21 22:00 08/19/21 02:47 Cefepime/Ns 2 Gm/100 Ml IV Not Given Q24H [facility] Protocol Insulin Human Lispro 0 unit 08/18/21 12:00 08/19/21 02:47 Insulin Lispro 100 Unit/Ml SUB-Q Not Given Q6HR [facility] Protocol Naloxone HCl 0.4 mg 08/16/21 20:05 08/16/21 18:53 Naloxone 0.4 Mg/1 Ml Inj IV 0.4 mg Q2MIN PRN Administration Res Rate </= 8 or 02 SAT < 92% Ondansetron HCl 4 mg 08/16/21 21:28 Ondansetron 4 Mg/2 Ml Inj IV Q8H PRN Nausea And Vomiting Pantoprazole Sodium 40 mg 08/19/21 10:00 Pantoprazole 40 Mg Inj IV QDAY LADAN Sodium Chloride 10 ml 08/16/21 22:00 08/19/21 02:47 Sodium Chloride 0.9% 10 Ml Flush Syringe IV Not Given BID LADAN Sodium Chloride 10 ml 08/16/21 21:28 Sodium Chloride 0.9% 10 Ml Flush Syringe IV PRN PRN LINE FLUSH
[2021-08-19] MEDS ORDERED: SODIUM CHLORIDE 0.9% 500 ML 500 ML IV SCH (09:45)
--- NOTE | 2021-08-19 10:35 | Progress Note ---
Assessment and Plan : Extubate. Agree with GI consult and PPI therapy. Suggest q6 hour H/H's and transfuse for HgB less than 7. HD per renal. Discontinued all sedating medications. Continue to monitor in ICU given bleeding. Stopped all sedation and discontinued order for this. Not sure why sedation was needed if patient was intubated for altered mental state and inability to protect airway. If waking up should have been extubated. On minimal vent settings with good sats. Once awake, will extubate. HD per renal. CCt 31 minutes. Subjective Date of service: 08/19/21 Interval history: AWake and alert. Off sedation. Had bloody bowel movements and drop in Hemoglo bin last night. Objective Vital Signs - 12hr 08/18/21 08/18/21 08/18/21 22:41 22:51 23:01 Temperature Pulse Rate 111 H 111 H 110 H Pulse Rate [ Left Radial] Respiratory 11 L 12 10 L Rate Blood Pressure 109/52 109/52 109/52 O2 Sat by Pulse 100 100 100 Oximetry 08/18/21 08/18/21 08/18/21 23:10 23:11 23:13 Temperature 98.3 F Pulse Rate 110 H 110 H Pulse Rate [ Left Radial] Respiratory 13 14 Rate Blood Pressure 109/52 117/45 O2 Sat by Pulse 100 100 Oximetry 08/18/21 08/18/21 08/18/21 23:17 23:21 23:31 Temperature 98.0 F Pulse Rate 111 H 109 H 111 H Pulse Rate [ Left Radial] Respiratory 15 17 13 Rate Blood Pressure 117/45 102/54 102/54 O2 Sat by Pulse 100 100 100 Oximetry 08/18/21 08/18/21 08/19/21 23:33 23:45 00:00 Temperature Pulse Rate 108 H 110 H 110 H Pulse Rate [ Left Radial] Respiratory 13 14 4 L Rate Blood Pressure 108/44 117/45 127/58 O2 Sat by Pulse 100 100 100 Oximetry 08/19/21 08/19/21 08/19/21 00:01 00:15 00:31 Temperature Pulse Rate 109 H 108 H 109 H Pulse Rate [ Left Radial] Respiratory 14 20 14 Rate Blood Pressure 118/46 108/44 126/64 O2 Sat by Pulse 100 100 100 Oximetry 08/19/21 08/19/21 08/19/21 00:32 00:41 00:51 Temperature 98.7 F Pulse Rate 111 H 110 H Pulse Rate [ Left Radial] Respiratory 11 L 13 Rate Blood Pressure 130/62 144/63 O2 Sat by Pulse 100 100 Oximetry 08/19/21 08/19/21 08/19/21 01:00 01:10 02:00 Temperature Pulse Rate 110 H 112 H 112 H Pulse Rate [ Left Radial] Respiratory 15 21 Rate Blood Pressure 130/62 144/63 O2 Sat by Pulse 100 100 Oximetry 08/19/21 08/19/21 08/19/21 02:25 02:31 02:41 Temperature Pulse Rate Pulse Rate [ Left Radial] Respiratory Rate Blood Pressure 164/59 163/68 O2 Sat by Pulse 79 L 99 100 Oximetry 08/19/21 08/19/21 08/19/21 02:51 03:01 03:11 Temperature Pulse Rate Pulse Rate [ Left Radial] Respiratory Rate Blood Pressure 165/75 165/75 165/75 O2 Sat by Pulse 94 99 85 Oximetry 08/19/21 08/19/21 08/19/21 03:21 03:24 03:31 Temperature 99.5 F Pulse Rate Pulse Rate [ Left Radial] Respiratory Rate Blood Pressure 165/75 165/75 O2 Sat by Pulse 100 100 Oximetry 08/19/21 08/19/21 08/19/21 03:41 03:51 04:00 Temperature Pulse Rate Pulse Rate [ 110 H Left Radial] Respiratory 16 Rate Blood Pressure 184/52 155/96 O2 Sat by Pulse 90 100 100 Oximetry 08/19/21 08/19/21 08/19/21 04:01 04:11 04:21 Temperature Pulse Rate Pulse Rate [ Left Radial] Respiratory Rate Blood Pressure 155/96 169/97 166/72 O2 Sat by Pulse 100 100 100 Oximetry 08/19/21 08/19/21 08/19/21 04:23 04:31 04:41 Temperature Pulse Rate Pulse Rate [ Left Radial] Respiratory Rate Blood Pressure 164/59 166/72 159/69 O2 Sat by Pulse 100 100 100 Oximetry 08/19/21 08/19/21 08/19/21 04:51 05:01 05:11 Temperature Pulse Rate Pulse Rate [ Left Radial] Respiratory Rate Blood Pressure 160/74 160/74 169/65 O2 Sat by Pulse 100 70 L 100 Oximetry 08/19/21 08/19/21 08/19/21 05:21 05:31 06:38 Temperature Pulse Rate Pulse Rate [ Left Radial] Respiratory Rate Blood Pressure 157/80 157/80 164/90 O2 Sat by Pulse 100 99 Oximetry 08/19/21 08/19/21 08/19/21 07:14 07:46 08:00 Temperature 99.3 F Pulse Rate Pulse Rate [ 110 H Left Radial] Respiratory 16 Rate Blood Pressure 164/90 O2 Sat by Pulse 100 Oximetry 08/19/21 08/19/21 08/19/21 08:10 08:12 09:01 Temperature Pulse Rate 113 H Pulse Rate [ Left Radial] Respiratory Rate Blood Pressure 164/90 151/68 153/88 O2 Sat by Pulse 98 100 97 Oximetry 08/19/21 10:05 Temperature Pulse Rate Pulse Rate [ Left Radial] Respiratory Rate Blood Pressure O2 Sat by Pulse 100 Oximetry Constitutional: other (on vent) Eyes: non-icteric Effort: normal Ascultation: Bilateral: diminished breath sounds Gastrointestinal: normoactive bowel sounds, soft, non-tender, non-distended Integumentary: normal Extremities: no cyanosis Neurologic: other (on vent) CBC and BMP: 08/19/21 08:06 08/19/21 08:06 ABG, PT/INR, D-dimer: ABG ABG pH 7.373 (7.320-7.450) 08/18/21 04:30 POC ABG pCO2 33.4 mmHg (32.0-48.0) 08/18/21 04:30 ABG pCO2 28.7 mm Hg 08/17/21 03:08 POC ABG pO2 124.7 mmHg (83-108) H 08/18/21 04:30 ABG pO2 45.2 mm Hg (80.0-90.0) L 08/17/21 03:08 POC ABG HCO3 19.0 08/18/21 04:30 ABG O2 Saturation 98.4 (0-100) 08/18/21 04:30 PT/INR, D-dimer PT 13.9 Sec. (12.2-14.9) 08/17/21 04:41 INR 0.96 (0.87-1.13) 08/17/21 04:41 Abnormal lab findings: Abnormal Labs 08/16/21 08/16/21 08/16/21 08:00 20:06 20:06 WBC RBC 3.24 L Hgb Hct MCV 98 H RDW 17.8 H Ward % (Auto) Ward # (Auto) Seg Neutrophils % ABG pH POC ABG pCO2 POC ABG pO2 ABG pO2 ABG O2 Saturation ABG Hemoglobin ABG Oxyhemoglobin ABG Sodium ABG Glucose Oxyhemoglobin Carboxyhemoglobin Sodium Chloride Carbon Dioxide BUN 35 H Creatinine 6.1 H Glucose 175 H POC Glucose Calcium Alkaline Phosphatase Total Protein Albumin Arterial Blood Glucose Urine Blood Moderate A Urine WBC (Auto) > 182.0 H U Epithel Cells (Auto) 32.0 H Crossmatch 08/16/21 08/17/21 08/17/21 20:35 03:08 04:41 WBC RBC 2.89 L Hgb 8.9 L Hct 28.3 L MCV 98 H RDW 17.5 H Ward % (Auto) 8.3 H Ward # (Auto) 0.9 H Seg Neutrophils % 71.2 H ABG pH 7.534 H 7.525 H POC ABG pCO2 POC ABG pO2 ABG pO2 248.5 H 45.2 L ABG O2 Saturation 99.4 H 81.2 L ABG Hemoglobin 10.1 L 8.8 L ABG Oxyhemoglobin ABG Sodium ABG Glucose Oxyhemoglobin 79.6 L Carboxyhemoglobin Sodium Chloride Carbon Dioxide BUN Creatinine Glucose POC Glucose Calcium Alkaline Phosphatase Total Protein Albumin Arterial Blood Glucose Urine Blood Urine WBC (Auto) U Epithel Cells (Auto) Crossmatch 08/17/21 08/17/21 08/17/21 04:41 04:56 07:50 WBC RBC Hgb Hct MCV RDW Ward % (Auto) Ward # (Auto) Seg Neutrophils % ABG pH 7.505 H POC ABG pCO2 28.4 L POC ABG pO2 184.8 H ABG pO2 ABG O2 Saturation ABG Hemoglobin 10.0 L ABG Oxyhemoglobin 99.0 H ABG Sodium 135.0 L ABG Glucose 142 H Oxyhemoglobin Carboxyhemoglobin 0.3 L Sodium Chloride Carbon Dioxide 21 L BUN 39 H Creatinine 6.1 H Glucose 147 H POC Glucose 152 H Calcium 7.8 L Alkaline Phosphatase Total Protein Albumin Arterial Blood Glucose 142 H Urine Blood Urine WBC (Auto) U Epithel Cells (Auto) Crossmatch 08/17/21 08/18/21 08/18/21 11:47 04:15 04:15 WBC RBC Hgb 9.3 L Hct 29.4 L MCV RDW Ward % (Auto) Ward # (Auto) Seg Neutrophils % ABG pH POC ABG pCO2 POC ABG pO2 ABG pO2 ABG O2 Saturation ABG Hemoglobin ABG Oxyhemoglobin ABG Sodium ABG Glucose Oxyhemoglobin Carboxyhemoglobin Sodium Chloride Carbon Dioxide 17 L BUN 40 H Creatinine 6.0 H Glucose POC Glucose 108 H Calcium 7.9 L Alkaline Phosphatase 144 H Total Protein 6.1 L Albumin 1.6 L Arterial Blood Glucose Urine Blood Urine WBC (Auto) U Epithel Cells (Auto) Crossmatch 08/18/21 08/18/21 08/18/21 04:30 20:42 20:49 WBC RBC Hgb 6.9 L Hct 21.5 L D MCV RDW Ward % (Auto) Ward # (Auto) Seg Neutrophils % ABG pH POC ABG pCO2 POC ABG pO2 124.7 H ABG pO2 ABG O2 Saturation ABG Hemoglobin 10.1 L ABG Oxyhemoglobin 98.1 H ABG Sodium 135.5 L ABG Glucose Oxyhemoglobin Carboxyhemoglobin 0 L Sodium Chloride Carbon Dioxide BUN Creatinine Glucose POC Glucose 133 H Calcium Alkaline Phosphatase Total Protein Albumin Arterial Blood Glucose Urine Blood Urine WBC (Auto) U Epithel Cells (Auto) Crossmatch 08/18/21 08/19/21 08/19/21 20:50 05:38 08:06 WBC 21.3 H RBC 2.55 L Hgb 7.5 L Hct 23.4 L MCV RDW 22.1 H Ward % (Auto) Ward # (Auto) Seg Neutrophils % ABG pH POC ABG pCO2 POC ABG pO2 ABG pO2 ABG O2 Saturation ABG Hemoglobin ABG Oxyhemoglobin ABG Sodium ABG Glucose Oxyhemoglobin Carboxyhemoglobin Sodium Chloride Carbon Dioxide BUN Creatinine Glucose POC Glucose 147 H Calcium Alkaline Phosphatase Total Protein Albumin Arterial Blood Glucose Urine Blood Urine WBC (Auto) U Epithel Cells (Auto) Crossmatch See Detail 08/19/21 08:06 WBC RBC Hgb Hct MCV RDW Ward % (Auto) Ward # (Auto) Seg Neutrophils % ABG pH POC ABG pCO2 POC ABG pO2 ABG pO2 ABG O2 Saturation ABG Hemoglobin ABG Oxyhemoglobin ABG Sodium ABG Glucose Oxyhemoglobin Carboxyhemoglobin Sodium 136 L Chloride 97.8 L Carbon Dioxide 19 L BUN 23 H Creatinine 4.0 H Glucose 172 H POC Glucose Calcium 7.1 L Alkaline Phosphatase Total Protein Albumin Arterial Blood Glucose Urine Blood Urine WBC (Auto) U Epithel Cells (Auto) Crossmatch
[2021-08-19] MEDS: CEFEPIME/NS 2 GM/100 ML 2 GM/100 ML BAG IV SCH (11:00)
[2021-08-19] MEDS: PANTOPRAZOLE 40 MG INJ IV SCH (11:00)
--- NOTE | 2021-08-19 17:57 | Progress Note ---
Assessment and Plan Assessment and plan: This is a 70-year-old female with HTN, CAD s/p stent, DM, ESRD on HD, calciphylaxis admitted with acute hypoxic respiratory failure, UTI Neuro: Metabolic versus toxic encephalopathy -CT head with no acute findings -Avoid delirium -Reorientation as needed -Maintain sleep-wake cycle Cardio: h/o HTN, CAD s/p stent -resume home hypertensive regimen after bedside swallow -Blood pressure monitor per protocol -As needed hydralazine -Resume home Lipitor -Hold home aspirin, Plavix Respiratory: Acute hypoxic respiratory failure -Patient was intubated 08/16 with 7.50 ETT at 22 at the lips in the ED -A.m. vent settings: Assist control rate 14, tidal volume 450, PEEP 6, FiO2 30% -See RT notes for titration -Patient was extubated on 08/19 -Pulmonary hygiene -Supplemental oxygen as needed -SPO2 monitoring GI: GI bleed -This morning patient had bloody stool on rectal tube -GI consulted, appreciate recommendations -Patient was anemic yesterday and received 1 unit PRBC -Protonix IV -Currently n.p.o. -RN to perform bedside swallow -24-hour positive for 481 -Hold BR at this time : ESRD on HD, calciphylaxis hyponatremia, hypochloremia, metabolic acidosis -Nephrology consulted, appreciate recommendations -HD per nephrology -Renally dose medications -Strict intake and output -Daily weights -Trend BMP ID: E. coli and Klebsiella pneumonia UTI, tracheal aspirate with Pseudomonas aeruginosa -Patient is on cefepime -Trend fever and WBC curve Heme: Anemia of chronic disease, GI bleed -S/p 2 units PRBC -Transfuse for less than 7 hemoglobin less than 7 hemoglobin less than 7 -Trend CBC -Epogen per nephrology -H/H every 6 Endo: h/o DM -Accu-Cheks every 6 -SSI as needed -Avoid hypoglycemia The high probability of a clinically significant, sudden or life threatening deterioration of the [renal,respiratory] system(s) required my full and direct attention, intervention and personal management. The aggregate critical care time was [] minutes. This time is in addition to time spent performing reported procedures but includes the following: [x] Data Review and interpretation [x] Patient assessment and monitoring of vital signs [x] Documentation [x] Medication orders and management Disposition Plan: icu Total Time Spent with Patient (Minutes): 60 History Interval history: This is a 70-year-old female with HTN, DM, ESRD on HD, calciphylaxis who presented to the emergency department on 08/16 with altered mental status and decreased responsiveness. Patient was recently admitted to the hospital after possible overdose on Dilaudid after vascular surgery for varicose veins on a Narcan drip. Upon arrival to the emergency department patient was given Narcan without significant improvement and had hypoglycemia into the 200s on initial presentation. Patient was obtunded and subsequently intubated to protect her airway. Work-up in the emergency department included a CXR and CT scan of the head which were unremarkable. Urinalysis revealed UTI patient was started on empiric antibiotics. Patient was admitted to the hospitalist service with consults to nephrology and CCM. 08/17/21: Pt intubated, CC and nephro consulted, follow cx, cont abx, gurded prognosis 08/18/21: s/p HD today, plan to d/c all sedation and to monitor mental status, follow am lab. s/p one unit PRBC today 08/19/21: Patient was extubated today, urine culture resulted with E. coli and Klebsiella pneumoniae, trach aspirate with Pseudomonas aeruginosa however all are sensitive to cefepime which the patient is already on. Hospitalist Physical - Constitutional Vitals: Temp Pulse Resp BP Pulse Ox 98.2 F 105 H 14 158/63 98 08/19/21 16:30 08/19/21 17:01 08/19/21 17:01 08/19/21 17:01 08/19/21 17:01 General appearance: Present: well-nourished, other - EENT Eyes: Present: PERRL, EOM intact - Neck Neck: Present: normal ROM - Respiratory Respiratory effort: normal Respiratory: bilateral: CTA - Cardiovascular Rhythm: regular Heart Sounds: Present: S1 & S2. Absent: systolic murmur, diastolic murmur - Extremities Extremities: no ischemia, pulses intact, pulses symmetrical, No edema, normal temperature, normal color, Full ROM Peripheral Pulses: within normal limits - Abdominal General gastrointestinal: soft, non-tender, non-distended, normal bowel sounds - Integumentary Integumentary: Present: warm, dry - Psychiatric Psychiatric: cooperative - Neurologic Neurologic: CNII-XII intact, no focal deficits, moves all extremities - Allied Health Allied health notes reviewed: nursing, RT, social work Results - Labs CBC & Chem 7: 08/19/21 08:06 08/19/21 08:06 Labs: Laboratory Last Values WBC 21.3 K/mm3 (4.5-11.0) H 08/19/21 08:06 RBC 2.55 M/mm3 (3.65-5.03) L 08/19/21 08:06 Hgb 7.5 gm/dl (10.1-14.3) L 08/19/21 08:06 Hct 23.4 % (30.3-42.9) L 08/19/21 08:06 MCV 92 fl (79-97) 08/19/21 08:06 MCH 29 pg (28-32) 08/19/21 08:06 MCHC 32 % (30-34) 08/19/21 08:06 RDW 22.1 % (13.2-15.2) H 08/19/21 08:06 Plt Count 279 K/mm3 (140-440) 08/19/21 08:06 Lymph % (Auto) 17.4 % (13.4-35.0) 08/17/21 04:41 [place] % (Auto) 8.3 % (0.0-7.3) H 08/17/21 04:41 Eos % (Auto) 2.6 % (0.0-4.3) 08/17/21 04:41 Baso % (Auto) 0.5 % (0.0-1.8) 08/17/21 04:41 Lymph # (Auto) 1.9 K/mm3 (1.2-5.4) 08/17/21 04:41 [place] # (Auto) 0.9 K/mm3 (0.0-0.8) H 08/17/21 04:41 Eos # (Auto) 0.3 K/mm3 (0.0-0.4) 08/17/21 04:41 Baso # (Auto) 0.1 K/mm3 (0.0-0.1) 08/17/21 04:41 Seg Neutrophils % 71.2 % (40.0-70.0) H 08/17/21 04:41 Seg Neutrophils # 7.6 K/mm3 (1.8-7.7) 08/17/21 04:41 PT 13.9 Sec. (12.2-14.9) 08/17/21 04:41 INR 0.96 (0.87-1.13) 08/17/21 04:41 ABG pH 7.373 (7.320-7.450) 08/18/21 04:30 POC ABG pCO2 33.4 mmHg (32.0-48.0) 08/18/21 04:30 ABG pCO2 28.7 mm Hg 08/17/21 03:08 POC ABG pO2 124.7 mmHg (83-108) H 08/18/21 04:30 ABG pO2 45.2 mm Hg (80.0-90.0) L 08/17/21 03:08 POC ABG HCO3 19.0 08/18/21 04:30 ABG HCO3 23.2 mmol/L (20.0-26.0) 08/17/21 03:08 ABG O2 Saturation 98.4 (0-100) 08/18/21 04:30 ABG O2 Content 9.8 (0.0-44) 08/17/21 03:08 POC ABG Base Excess -5.5 08/18/21 04:30 ABG Base Excess 0.8 mmol/L (-2.0-3.0) 08/17/21 03:08 ABG Hemoglobin 10.1 (12.0-17.5) L 08/18/21 04:30 ABG Oxyhemoglobin 98.1 (94-98) H 08/18/21 04:30 ABG Carboxyhemoglobin 1.5 % (0.0-5.0) 08/17/21 03:08 ABG Methemoglobin 0.3 (0.0-1.5) 08/18/21 04:30 ABG Sodium 135.5 mmol/L (136.0-145.0) L 08/18/21 04:30 ABG Potassium 4.0 mmol/L (3.40-4.50) 08/18/21 04:30 ABG Chloride 106.0 mmol/L (98-107) 08/18/21 04:30 ABG Glucose 80 mg/dL (65-95) 08/18/21 04:30 Oxyhemoglobin 79.6 % (95.0-99.0) L 08/17/21 03:08 Carboxyhemoglobin 0 (0.5-1.5) L 08/18/21 04:30 FiO2 45 % 08/17/21 03:08 FiO2 % 30.0 08/18/21 04:30 Sodium 136 mmol/L (137-145) L 08/19/21 08:06 Potassium 4.8 mmol/L (3.6-5.0) 08/19/21 08:06 Chloride 97.8 mmol/L (98-107) L 08/19/21 08:06 Carbon Dioxide 19 mmol/L (22-30) L 08/19/21 08:06 Anion Gap 24 mmol/L 08/19/21 08:06 BUN 23 mg/dL (7-17) H 08/19/21 08:06 Creatinine 4.0 mg/dL (0.6-1.2) H 08/19/21 08:06 Estimated GFR 11 ml/min 08/19/21 08:06 BUN/Creatinine Ratio 6 % 08/19/21 08:06 Glucose 172 mg/dL (65-100) H 08/19/21 08:06 POC Glucose 115 mg/dL (70-105) H 08/19/21 17:25 Lactic Acid 1.00 mmol/L (0.7-2.0) 08/16/21 22:44 Calcium 7.1 mg/dL (8.4-10.2) L 08/19/21 08:06 Total Bilirubin 0.20 mg/dL (0.1-1.2) 08/18/21 04:15 AST 23 units/L (5-40) 08/18/21 04:15 ALT 11 units/L (7-56) 08/18/21 04:15 Alkaline Phosphatase 144 units/L (35-129) H 08/18/21 04:15 Total Protein 6.1 g/dL (6.3-8.2) L 08/18/21 04:15 Albumin 1.6 g/dL (3.9-5) L 08/18/21 04:15 Albumin/Globulin Ratio 0.4 % 08/18/21 04:15 Arterial Blood Glucose 80 mg/dL (65-95) 08/18/21 04:30 Urine Color Yellow (Yellow) 08/16/21 08:00 Urine Turbidity Turbid (Clear) 08/16/21 08:00 Urine pH 6.0 (5.0-7.0) 08/16/21 08:00 Ur Specific [place] 1.010 (1.003-1.030) 08/16/21 08:00 Urine Protein >500 mg/dL (Negative) 08/16/21 08:00 Urine Glucose (UA) Negative mg/dL (Negative) 08/16/21 08:00 Urine Ketones Negative mg/dL (Negative) 08/16/21 08:00 Urine Blood Moderate (Negative) A 08/16/21 08:00 Urine Nitrite Negative (Negative) 08/16/21 08:00 Ur Reducing Substances Not Reportable 08/16/21 08:00 Urine Bilirubin Negative (Negative) 08/16/21 08:00 Urine Ictotest Not Reportable 08/16/21 08:00 Urine Urobilinogen < 2.0 mg/dL (<2.0) 08/16/21 08:00 Ur Leukocyte Esterase Large (Negative) 08/16/21 08:00 Urine WBC (Auto) > 182.0 /HPF (0.0-6.0) H 08/16/21 08:00 Urine RBC (Auto) 17.0 /HPF (0.0-6.0) 08/16/21 08:00 U Epithel Cells (Auto) 32.0 /HPF (0-13.0) H 08/16/21 08:00 Urine Bacteria (Auto) 4+ /HPF (Negative) 08/16/21 08:00 Urine Mucus 1+ /HPF 08/16/21 08:00 Urine Yeast (Budding) 2+ /HPF 08/16/21 08:00 Urine Opiates Screen Negative 08/16/21 20:58 Urine Methadone Screen Negative 08/16/21 20:58 Ur Barbiturates Screen Negative 08/16/21 20:58 Ur Phencyclidine Scrn Negative 08/16/21 20:58 Ur Amphetamines Screen Negative 08/16/21 20:58 U Benzodiazepines Scrn Negative 08/16/21 20:58 Urine Cocaine Screen Negative 08/16/21 20:58 U Marijuana (THC) Screen Negative 08/16/21 20:58 Drugs of Abuse Note Disclamer 08/16/21 20:58 Plasma/Serum Alcohol < 0.01 % (0-0.07) 08/16/21 20:06 Blood Type B POSITIVE 08/18/21 20:50 Antibody Screen Negative 08/18/21 20:50 Crossmatch See Detail 08/18/21 20:50 Microbiology: Microbiology 08/16/21 20:35 Tracheal Aspirate Sputum Culture - Final Pseudomonas Aeruginosa 08/17/21 Unknown Urine,Catheterized - Indwelling Catheter Urine Culture - Final Escherichia Coli Klebsiella Pneumoniae 08/16/21 22:38 Peripheral/Venous Blood Culture - Preliminary NO GROWTH AFTER 48 HOURS 08/16/21 22:44 Peripheral/Venous Blood Culture - Preliminary NO GROWTH AFTER 48 HOURS Noriega/IV: Voiding Method Indwelling Catheter Active Medications - Current Medications Current Medications: Generic Name Dose Route Start Last Admin Trade Name Freq PRN Reason Stop Dose Admin Acetaminophen 650 mg 08/16/21 21:28 Acetaminophen 650 Mg Rect Supp AL Q6H PRN Pain MILD(1-3)/Fever >100.5/PÉREZ Dextrose 0 ml 08/16/21 21:28 08/17/21 16:54 Dextrose 50% In Water (25gm) 50 Ml Syringe IV 10 ml Q30MIN PRN Administration Hypoglycemia Protocol Heparin Sodium (Porcine) 5,000 unit 08/16/21 22:00 08/19/21 14:00 Heparin 5,000 Unit/1 Ml Vial SUB-Q 5,000 unit Q8HR LADAN Administration Heparin Sodium (Porcine) 3,000 unit 08/18/21 08:05 Heparin 10,000 Units/10 Ml Vial IV TITO PRN hemodialysis Hydralazine HCl 10 mg 08/17/21 04:30 08/17/21 04:44 Hydralazine 20 Mg/1 Ml Inj IV 10 mg Q4HR PRN Administration Hypertension Sodium Chloride 100 mls @ 999 mls/hr 08/18/21 08:05 Nacl 0.9% IV TITO PRN Hypotension Cefepime HCl 2 gm in 100 mls @ 200 mls/hr 08/19/21 10:00 08/19/21 11:00 Cefepime/Ns 2 Gm/100 Ml IV 200 mls/hr Q24H LADAN Administration Protocol Sodium Chloride 500 mls @ 0 mls/hr 08/19/21 09:45 Nacl 0.9% 500 Ml IV 08/19/21 23:59 ONCE LADAN As Directed Insulin Human Lispro 0 unit 08/18/21 12:00 08/19/21 11:54 Insulin Lispro 100 Unit/Ml SUB-Q 2 unit Q6HR LADAN Administration Protocol Naloxone HCl 0.4 mg 08/16/21 20:05 08/16/21 18:53 Naloxone 0.4 Mg/1 Ml Inj IV 0.4 mg Q2MIN PRN Administration Res Rate </= 8 or 02 SAT < 92% Ondansetron HCl 4 mg 08/16/21 21:28 Ondansetron 4 Mg/2 Ml Inj IV Q8H PRN Nausea And Vomiting Pantoprazole Sodium 40 mg 08/19/21 10:00 08/19/21 11:00 Pantoprazole 40 Mg Inj IV 40 mg QDAY LADAN Administration Sodium Chloride 10 ml 08/16/21 22:00 08/19/21 02:47 Sodium Chloride 0.9% 10 Ml Flush Syringe IV Not Given BID LADAN Sodium Chloride 10 ml 08/16/21 21:28 Sodium Chloride 0.9% 10 Ml Flush Syringe IV PRN PRN LINE FLUSH Nutrition/Malnutrition Assess - Dietary Evaluation Nutrition/Malnutrition Findings: Nutrition Notes Start: 08/17/21 10:25 Freq: Status: Active Protocol: Document 08/19/21 10:10 GB (Rec: 08/19/21 10:29 GB [id number]) Nutrition Notes Initial or Follow up Assessment Current Diagnosis CKD (stage V CKD),Coronary Artery Disease,Diabetes, Hypertension,Heart Failure, Respiratory Failure Other Pertinent Diagnosis UTI, on HD, encephalopathy, drug OD Current Diet NPO Labs/Tests 08/19: Na 136, BUN 23 (improved ), Creatinine 4 (improved), glucose 172 (fluctuating), Ca 7.1, AlkP 144 Pertinent Medications D5(PRN) Height 5 ft 8 in Weight 91 kg [place] Body Weight (kg) 63.63 BMI 30.4 Weight change and time frame no change reported Weight Status Obese Subjective/Other Information MD consult for diet education. MD notes 08/18: sedations d/c'd , plan once awake extubate, on maintenance HD MWF. Resp Note 08/19: 10am, pt extubated to room air, no noted distress RN note: meal stand by assist Last BM: 08/19 - loose, liquid Percent of energy/protein needs met: 0% per intubation/sedation. Extubated today, diet to start . Burn Absent Trauma Absent GI Symptoms None Food Allergy No Skin Integrity/Comment wounds DM ulcers LLE, RLE Current % PO Other Minimum of two criteria No #2 Nutrition Diagnosis Food and nutrition-related knowledge deficit Etiology HD dependent, DM As Evidenced by Signs and Symptoms MD consult for nutrition education, previously intubated/sedated #1 Nutrition Diagnosis Inadequate oral intake Comments: 08/19: pt extubated 10am, diet to start Etiology drug OD, ARF As Evidenced by Signs and Symptoms pt on vent and unable to consume PO Diagnosis Progress(for reassessment Resolved documentation) Is patient on ventilator? No Is Patient Ambulatory and/or Out of Bed No REE-([place]-confined to bed) 1768.020 Kcal/Kg value to use for calculation 20 Approximate Energy Requirements Using 1820 kcal/Kg Calculation Used for Recommendations Kcal/kg Additional Notes Protein: 1-1.2g/kg @ 91k- 109g Fluid: 1 ml/kcal or per MD Nutrition Intervention Change Diet Order: Advance to consistent carbohydrate as tolerated Nutrition Support: n/a Add Supplement/Snack (indicate name/kcal n/a /protein ) Education Handouts Provided AND: Food content values for K and P. Goal #1 Diet started and advanced to consistent carbohydrate by f/u . Goal #2 PO intake of meals to be 75% or greater daily for LOS. Goal #3 Nutrition education packet on food content values for K and P reviewed and provided to pt once admitted to floor and/or at f/u. Follow-Up By: 08/21/21 Additional Comments F/U: edu packet of food content values for K and P reviewed and provided to pt, po intake
--- NOTE | 2021-08-19 19:19 | Gastroenterology Consultation ---
History of Present Illness - Reason for Consult Consult date: 08/19/21 Acute Anemia Requesting physician: MONICA TESFAYE - History of Present Illness The patient was admitted with metabolic encephalopathy (?narcotic-associated per chart) who was noted to have significant anemia compared to her baseline. She has a hx of chronic anemia (ESRD) and has an unknown endoscopic history. She has had mild blood in her BMs this admit, described by nursing as hematochezia. There has been no significant pain. Of note, during her admit last week, she had hypotension during a dilaudid overdose (iatrogenic). She has had no significant abdominal imaging this admit. Past History Past Medical History: arthritis, diabetes, dialysis, ESRD, heart failure, hypertension, other (History of asthma) Past Surgical History: Other ( bilateral knee replacements, left shoulder surgery, chronic back pain and leg pain, recent varicose vein surgery) Social history: lives with family Family history: no significant family history Medications and Allergies Allergies Allergy/AdvReac Type Severity Reaction Status Date / Time Penicillins Allergy Unknown Itching Verified 08/11/21 17:39 Home Medications Medication Instructions Recorded Confirmed Last Taken Type Albuterol Sulfate [Ventolin Hfa] 2 puff IH Q6H PRN 08/30/18 08/18/21 10/08/18 History Insulin Lispro [HumaLOG VIAL] 0 units SQ AC #1 vial 10/06/18 08/18/21 08/16/21 Rx Cinacalcet [Sensipar] 30 mg PO QDAY 08/08/21 08/18/21 Unknown History Furosemide [Lasix TAB] 80 mg PO QDAY 08/08/21 08/18/21 Unknown History Metoprolol Succinate [Toprol Xl] 25 mg PO DAILY 08/08/21 08/18/21 Unknown History Nortriptyline [Pamelor] 25 mg PO DAILY 08/08/21 08/18/21 Unknown History calcitrioL [Rocaltrol] 0.5 mcg PO QDAY 08/08/21 08/18/21 Unknown History metOLazone [Zaroxolyn] 5 mg PO QDAY 08/08/21 08/18/21 Unknown History Aspirin [Aspirin BABY CHEW TAB] 81 mg PO QDAY 30 Days #30 tab.chew 08/14/21 08/18/21 Unknown Rx AtorvaSTATin [Lipitor] 40 mg PO QHS #90 tablet 08/14/21 08/18/21 Unknown Rx Clopidogrel [Plavix] 75 mg PO QDAY 30 Days #30 tablet 08/14/21 08/18/21 Unknown Rx Hydralazine HCl 50 mg PO BID 30 Days #30 tab 08/14/21 08/18/21 Unknown Rx amLODIPine 5 mg PO QDAY 30 Days #30 tablet 08/14/21 08/18/21 Unknown Rx Active Meds: Active Medications Acetaminophen (Acetaminophen 650 Mg Rect Supp) 650 mg MS Q6H PRN PRN Reason: Pain MILD(1-3)/Fever >100.5/PÉREZ Dextrose (Dextrose 50% In Water (25gm) 50 Ml Syringe) 0 ml IV Q30MIN PRN; Protocol PRN Reason: Hypoglycemia Last Admin: 08/17/21 16:54 Dose: 10 ml Documented by: Heparin Sodium (Porcine) (Heparin 5,000 Unit/1 Ml Vial) 5,000 unit SUB-Q Q8HR LADAN Last Admin: 08/19/21 14:00 Dose: 5,000 unit Documented by: Heparin Sodium (Porcine) (Heparin 10,000 Units/10 Ml Vial) 3,000 unit IV TITO PRN PRN Reason: hemodialysis Hydralazine HCl (Hydralazine 20 Mg/1 Ml Inj) 10 mg IV Q4HR PRN PRN Reason: Hypertension Last Admin: 08/17/21 04:44 Dose: 10 mg Documented by: Sodium Chloride (Nacl 0.9%) 100 mls @ 999 mls/hr IV TITO PRN PRN Reason: Hypotension Cefepime HCl (Cefepime/Ns 2 Gm/100 Ml) 2 gm in 100 mls @ 200 mls/hr IV Q24H LADAN; Protocol Last Admin: 08/19/21 11:00 Dose: 200 mls/hr Documented by: Sodium Chloride (Nacl 0.9% 500 Ml) 500 mls @ 0 mls/hr IV ONCE LADAN Stop: 08/19/21 23:59 Insulin Human Lispro (Insulin Lispro 100 Unit/Ml) 0 unit SUB-Q Q6HR LADAN; Protocol Last Admin: 08/19/21 11:54 Dose: 2 unit Documented by: Naloxone HCl (Naloxone 0.4 Mg/1 Ml Inj) 0.4 mg IV Q2MIN PRN PRN Reason: Res Rate </= 8 or 02 SAT < 92% Last Admin: 08/16/21 18:53 Dose: 0.4 mg Documented by: Ondansetron HCl (Ondansetron 4 Mg/2 Ml Inj) 4 mg IV Q8H PRN PRN Reason: Nausea And Vomiting Pantoprazole Sodium (Pantoprazole 40 Mg Inj) [address] [facility] Last Admin: 08/19/21 11:00 Dose: 40 mg Documented by: Sodium Chloride (Sodium Chloride 0.9% 10 Ml Flush Syringe) [address] [facility] Last Admin: 08/19/21 02:47 Dose: Not Given Documented by: Sodium Chloride (Sodium Chloride 0.9% 10 Ml Flush Syringe) 10 ml IV PRN PRN PRN Reason: LINE FLUSH I HAVE REVIEWED/RECONCILED MEDICATIONS Review of Systems - Review of Systems All systems: negative (as noted in the HPI) Exam - Constitutional Vital Signs: Temp Pulse Resp BP Pulse Ox 98.2 F 105 H 12 189/74 96 08/19/21 16:30 08/19/21 18:00 08/19/21 18:00 08/19/21 18:00 08/19/21 18:00 General appearance: no acute distress - EENT Eyes: PERRL, EOM intact ENT: hearing intact, clear oral mucosa - Neck Neck: supple, normal ROM - Respiratory Respiratory effort: normal Respiratory: bilateral: CTA - Cardiovascular Rhythm: regular Heart Sounds: Present: S1 & S2 Extremities: no ischemia, No edema - Gastrointestinal General gastrointestinal: Present: soft, non-tender, non-distended - Integumentary Integumentary: Present: clear, warm, dry - Neurologic Neurological: disoriented, strength equal bilaterally - Labs CBC & Chem 7: 08/19/21 08:06 08/19/21 08:06 Lab Results: Laboratory Results - last 24 hr 08/18/21 08/18/21 08/18/21 20:42 20:49 20:50 WBC RBC Hgb 6.9 L Hct 21.5 L D MCV MCH MCHC RDW Plt Count Sodium Potassium Chloride Carbon Dioxide Anion Gap BUN Creatinine Estimated GFR BUN/Creatinine Ratio Glucose POC Glucose 133 H Calcium Blood Type B POSITIVE Antibody Screen Negative Crossmatch See Detail 08/19/21 08/19/21 08/19/21 05:38 08:06 08:06 WBC 21.3 H RBC 2.55 L Hgb 7.5 L Hct 23.4 L MCV 92 MCH 29 MCHC 32 RDW 22.1 H Plt Count 279 Sodium 136 L Potassium 4.8 Chloride 97.8 L Carbon Dioxide 19 L Anion Gap 24 BUN 23 H Creatinine 4.0 H Estimated GFR 11 BUN/Creatinine Ratio 6 Glucose 172 H POC Glucose 147 H Calcium 7.1 L Blood Type Antibody Screen Crossmatch 08/19/21 08/19/21 11:09 17:25 WBC RBC Hgb Hct MCV MCH MCHC RDW Plt Count Sodium Potassium Chloride Carbon Dioxide Anion Gap BUN Creatinine Estimated GFR BUN/Creatinine Ratio Glucose POC Glucose 165 H 115 H Calcium Blood Type Antibody Screen Crossmatch Assessment and Plan - Patient Problems (1) Hematochezia Current Visit: Yes Status: Acute Plan to address problem: - The most likely diagnosis, based on her past medical history, is mild ischemia. Since she has no severe abdominal pain, fevers, or markedly elevated WBC, we will monitor conservatively for now. - OK to given necessary anticoagulation (heparin in HD, cardiac ASA) but would avoid NSAIDs. - HD due tomorrow, and will consider EGD/colonoscopy based on her mental status after HD as currently would not be able to drink prep.
[2021-08-19 23:04] LABS: Hematocrit 27.5 % (30.3-42.9); Hemoglobin 8.7 gm/dl (10.1-14.3)
[2021-08-20] MEDS: INSULIN LISPRO 100 UNIT/ML SUB-Q SCH ×4 (00:30→17:58)
[2021-08-20] MEDS: HEPARIN 5,000 UNIT/1 ML VIAL SUB-Q SCH ×3 (00:31→17:58)
[2021-08-20 05:29] LABS: Hematocrit 24.8 % (30.3-42.9); Hemoglobin 8.4 gm/dl (10.1-14.3); Mean Corpuscular HGB Conc 34 % (30-34); Mean Corpuscular Volume 89 fl (79-97); Platelet Count 312 K/mm3 (140-440); Red Blood Count 2.78 M/mm3 (3.65-5.03); Red Cell Distribution Width 19.8 % (13.2-15.2)
[2021-08-20 06:01] LABS: Calcium 7.6 mg/dL (8.4-10.2)
--- NOTE | 2021-08-20 08:05 | Progress Note ---
Assessment and Plan 1. ESRD: Patient is on maintenance HD, MWF schedule. Patient was switched to hemodialysis about 2 months ago 2/2 calciphylaxis. Meds dosage based on GFR. Last outpatient HD ?08/15. Hemodialysis: 08/18. HD today. 2. FEN: Mild anion-gap metabolic acidosis, on HD. Monitor lytes and volume status. 3. Acute metabolic encephalopathy, POA: ?2/[address] head negative. Monitor. 4. H/o CAD s/p stent. Echo; EF 60%, LVH. 5. Anemia: Epogen with HD. 6. HTN: Monitor BP. 7. Type 2 DM. Subjective: Patient was seen and examined at the bedside. Examination: General appearance: well-developed, well-nourished, appears stated age HEENT: ATNC, pupils equal Neck: trachea midline Respiratory: Clear to Auscultation Cardiology: regular, S1S2, no murmur Gastrointestinal: normoactive bowel sounds, not tender, PD catheter noted Integumentary: b/l LE dressing noted Neurologic: lethargic, non-verbal Ext: no edema : Noriega catheter Hemodialysis access: R IJ tunnel catheter Subjective Date of service: 08/20/21 Objective - Vital Signs Vital signs: Vital Signs - 12hr 08/19/21 08/19/21 08/19/21 20:15 20:30 20:45 Temperature Pulse Rate 105 H 103 H 103 H Pulse Rate [ Left Radial] Respiratory 14 12 15 Rate Respiratory Rate [Right Lower Leg] Blood Pressure 146/56 158/61 158/61 O2 Sat by Pulse 98 100 98 Oximetry 08/19/21 08/19/21 08/19/21 21:00 21:09 21:15 Temperature Pulse Rate 102 H 103 H 100 H Pulse Rate [ Left Radial] Respiratory 15 16 15 Rate Respiratory Rate [Right Lower Leg] Blood Pressure 163/61 163/61 163/61 O2 Sat by Pulse 97 99 97 Oximetry 08/19/21 08/19/21 08/19/21 21:30 21:45 22:00 Temperature Pulse Rate 102 H 105 H 107 H Pulse Rate [ Left Radial] Respiratory 14 14 12 Rate Respiratory 16 Rate [Right Lower Leg] Blood Pressure 158/62 158/62 153/58 O2 Sat by Pulse 98 97 97 Oximetry 08/19/21 08/19/21 08/19/21 22:15 22:30 22:45 Temperature Pulse Rate 103 H 104 H 105 H Pulse Rate [ Left Radial] Respiratory 12 13 17 Rate Respiratory Rate [Right Lower Leg] Blood Pressure 167/62 157/61 153/67 O2 Sat by Pulse 99 97 97 Oximetry 08/19/21 08/19/21 08/19/21 23:00 23:15 23:30 Temperature Pulse Rate 102 H 104 H 104 H Pulse Rate [ Left Radial] Respiratory 15 15 11 L Rate Respiratory Rate [Right Lower Leg] Blood Pressure 167/61 159/64 164/59 O2 Sat by Pulse 98 98 98 Oximetry 08/19/21 08/20/21 08/20/21 23:45 00:00 00:15 Temperature 98.9 F Pulse Rate 104 H 105 H 104 H Pulse Rate [ 104 H Left Radial] Respiratory 16 16 13 Rate Respiratory Rate [Right Lower Leg] Blood Pressure 163/64 160/65 167/62 O2 Sat by Pulse 98 96 97 Oximetry 08/20/21 08/20/21 08/20/21 00:30 00:45 01:01 Temperature Pulse Rate 103 H 104 H 105 H Pulse Rate [ Left Radial] Respiratory 10 L 19 Rate Respiratory Rate [Right Lower Leg] Blood Pressure 160/57 165/66 158/66 O2 Sat by Pulse 98 99 97 Oximetry 08/20/21 08/20/21 08/20/21 01:15 02:01 03:00 Temperature Pulse Rate 102 H 103 H 100 H Pulse Rate [ Left Radial] Respiratory 10 L 16 17 Rate Respiratory Rate [Right Lower Leg] Blood Pressure 154/64 156/60 150/68 O2 Sat by Pulse 98 97 98 Oximetry 08/20/21 08/20/21 08/20/21 03:08 03:48 04:00 Temperature 98.2 F Pulse Rate 97 H 100 H Pulse Rate [ 104 H Left Radial] Respiratory 16 14 Rate Respiratory Rate [Right Lower Leg] Blood Pressure 143/67 O2 Sat by Pulse 100 99 Oximetry 08/20/21 08/20/21 08/20/21 05:00 06:00 07:00 Temperature Pulse Rate 98 H 97 H 98 H Pulse Rate [ Left Radial] Respiratory 12 16 17 Rate Respiratory Rate [Right Lower Leg] Blood Pressure 150/61 157/61 164/67 O2 Sat by Pulse 98 96 96 Oximetry - Lab 08/20/21 16:17 08/20/21 05:16 Most recent lab results ABG pH 7.373 (7.320-7.450) 08/18/21 04:30 ABG pCO2 28.7 mm Hg 08/17/21 03:08 ABG pO2 45.2 mm Hg (80.0-90.0) L 08/17/21 03:08 ABG HCO3 23.2 mmol/L (20.0-26.0) 08/17/21 03:08 ABG O2 Saturation 98.4 (0-100) 08/18/21 04:30 Calcium 7.6 mg/dL (8.4-10.2) L 08/20/21 05:16 Phosphorus 4.10 mg/dL (2.5-4.5) 08/20/21 05:16 Magnesium 1.50 mg/dL (1.7-2.3) L 08/20/21 05:16 Medications & Allergies - Medications Allergies/Adverse Reactions: Allergies Penicillins Allergy (Unknown, Verified 08/11/21 17:39) Itching Home Medications: Home Medications Medication Instructions Recorded Confirmed Last Taken Type Albuterol Sulfate [Ventolin Hfa] 2 puff IH Q6H PRN 08/30/18 08/18/21 10/08/18 History Insulin Lispro [HumaLOG VIAL] 0 units SQ AC #1 vial 10/06/18 08/18/21 08/16/21 Rx Cinacalcet [Sensipar] 30 mg PO QDAY 08/08/21 08/18/21 Unknown History Furosemide [Lasix TAB] 80 mg PO QDAY 08/08/21 08/18/21 Unknown History Metoprolol Succinate [Toprol Xl] 25 mg PO DAILY 08/08/21 08/18/21 Unknown History Nortriptyline [Pamelor] 25 mg PO DAILY 08/08/21 08/18/21 Unknown History calcitrioL [Rocaltrol] 0.5 mcg PO QDAY 08/08/21 08/18/21 Unknown History metOLazone [Zaroxolyn] 5 mg PO QDAY 08/08/21 08/18/21 Unknown History Aspirin [Aspirin BABY CHEW TAB] 81 mg PO QDAY 30 Days #30 tab.chew 08/14/21 08/18/21 Unknown Rx AtorvaSTATin [Lipitor] 40 mg PO QHS #90 tablet 08/14/21 08/18/21 Unknown Rx Clopidogrel [Plavix] 75 mg PO QDAY 30 Days #30 tablet 08/14/21 08/18/21 Unknown Rx Hydralazine HCl 50 mg PO BID 30 Days #30 tab 08/14/21 08/18/21 Unknown Rx amLODIPine 5 mg PO QDAY 30 Days #30 tablet 08/14/21 08/18/21 Unknown Rx Active Medications: Generic Name Dose Route Start Last Admin Trade Name Freq PRN Reason Stop Dose Admin Acetaminophen 650 mg 08/16/21 21:28 Acetaminophen 650 Mg Rect Supp NE Q6H PRN Pain MILD(1-3)/Fever >100.5/PÉREZ Dextrose 0 ml 08/16/21 21:28 08/17/21 16:54 Dextrose 50% In Water (25gm) 50 Ml Syringe IV 10 ml Q30MIN PRN Administration Hypoglycemia Protocol Heparin Sodium (Porcine) 5,000 unit 08/16/21 22:00 08/20/21 06:00 Heparin 5,000 Unit/1 Ml Vial SUB-Q Not Given Q8HR [facility] Heparin Sodium (Porcine) 3,000 unit 08/18/21 08:05 Heparin 10,000 Units/10 Ml Vial IV TITO PRN hemodialysis Hydralazine HCl 10 mg 08/17/21 04:30 08/17/21 04:44 Hydralazine 20 Mg/1 Ml Inj IV 10 mg Q4HR PRN Administration Hypertension Sodium Chloride 100 mls @ 999 mls/hr 08/18/21 08:05 Nacl 0.9% IV TITO PRN Hypotension Cefepime HCl 2 gm in 100 mls @ 200 mls/hr 08/19/21 10:00 08/19/21 11:00 Cefepime/Ns 2 Gm/100 Ml IV 200 mls/hr Q24H LADAN Administration Protocol Magnesium Sulfate 2 gm in 50 mls @ 25 mls/hr 08/20/21 07:59 Magnesium Sulfate 2gm/50ml IV 08/20/21 09:58 ONCE ONE Insulin Human Lispro 0 unit 08/18/21 12:00 08/20/21 05:59 Insulin Lispro 100 Unit/Ml SUB-Q Not Given Q6HR LADAN Protocol Naloxone HCl 0.4 mg 08/16/21 20:05 08/16/21 18:53 Naloxone 0.4 Mg/1 Ml Inj IV 0.4 mg Q2MIN PRN Administration Res Rate </= 8 or 02 SAT < 92% Ondansetron HCl 4 mg 08/16/21 21:28 Ondansetron 4 Mg/2 Ml Inj IV Q8H PRN Nausea And Vomiting Pantoprazole Sodium 40 mg 08/19/21 10:00 08/19/21 11:00 Pantoprazole 40 Mg Inj IV 40 mg QDAY LADAN Administration Sodium Chloride 10 ml 08/16/21 22:00 08/20/21 00:32 Sodium Chloride 0.9% 10 Ml Flush Syringe IV 10 ml BID LADAN Administration Sodium Chloride 10 ml 08/16/21 21:28 Sodium Chloride 0.9% 10 Ml Flush Syringe IV PRN PRN LINE FLUSH
[2021-08-20] MEDS ORDERED: MAGNESIUM SULFATE 2 GM/50 ML BAG IV SCH (08:30)
[2021-08-20 08:48] LABS: Hematocrit 28.7 % (30.3-42.9); Hemoglobin 9.2 gm/dl (10.1-14.3)
--- NOTE | 2021-08-20 09:18 | Gastroenterology Progress Note ---
Assessment and Plan - Patient Problems (1) Hematochezia Current Visit: Yes Status: Acute Plan to address problem: - The most likely diagnosis, based on her past medical history, is mild ischemia. Since she has no severe abdominal pain, fevers, or markedly elevated WBC, we will monitor conservatively for now. - OK to given necessary anticoagulation (heparin in HD, cardiac ASA) but would avoid NSAIDs. - HD due tomorrow, and will consider EGD/colonoscopy based on her mental status after HD as currently would not be able to drink prep. Subjective Date of service: 08/20/21 Principal diagnosis: GIB Interval history: The patient has had less rectal bleeding, and she responded appropriately to transfusion. She has no fevers or chills. No abdominal pain noted. Her mental status is still tenuous (alert but no focused). Objective - Constitutional Vitals: Temp Pulse Resp BP Pulse Ox 98.2 F 98 H 17 164/67 96 08/20/21 03:48 08/20/21 07:00 08/20/21 07:00 08/20/21 07:00 08/20/21 07:00 General appearance: no acute distress - Respiratory Respiratory effort: normal Respiratory: bilateral: CTA - Cardiovascular Rhythm: regular Heart Sounds: Present: S1 & S2 - Gastrointestinal General gastrointestinal: Present: soft, non-tender, non-distended - Neurologic Neurological: oriented to person, generalized weakness - Labs CBC & Chem 7: 08/20/21 16:17 08/20/21 05:16 Labs: Laboratory Results - last 24 hr 08/18/21 08/19/21 08/19/21 20:50 11:09 17:25 WBC RBC Hgb Hct MCV MCH MCHC RDW Plt Count Sodium Potassium Chloride Carbon Dioxide Anion Gap BUN Creatinine Estimated GFR BUN/Creatinine Ratio Glucose POC Glucose 165 H 115 H Calcium Phosphorus Magnesium Blood Type B POSITIVE Antibody Screen Negative Crossmatch See Detail 08/19/21 08/19/21 08/20/21 22:25 23:38 05:16 WBC 14.0 H RBC 2.78 L Hgb 8.7 L 8.4 L Hct 27.5 L 24.8 L MCV 89 MCH 30 MCHC 34 RDW 19.8 H Plt Count 312 Sodium Potassium Chloride Carbon Dioxide Anion Gap BUN Creatinine Estimated GFR BUN/Creatinine Ratio Glucose POC Glucose 117 H Calcium Phosphorus Magnesium Blood Type Antibody Screen Crossmatch 08/20/21 08/20/21 08/20/21 05:16 05:30 08:32 WBC RBC Hgb 9.2 L Hct 28.7 L MCV MCH MCHC RDW Plt Count Sodium 140 Potassium 3.9 Chloride 98.9 Carbon Dioxide 21 L Anion Gap 24 BUN 29 H Creatinine 4.8 H Estimated GFR 9 BUN/Creatinine Ratio 6 Glucose 125 H POC Glucose 118 H Calcium 7.6 L Phosphorus 4.10 Magnesium 1.50 L Blood Type Antibody Screen Crossmatch
[2021-08-20] MEDS: PANTOPRAZOLE 40 MG INJ IV SCH (09:41)
[2021-08-20] MEDS: CEFEPIME/NS 2 GM/100 ML 2 GM/100 ML BAG IV SCH (09:41)
--- NOTE | 2021-08-20 10:08 | Progress Note ---
Assessment and Plan 08/20/21: GI has seen and will follow. H/H is stable. HD per renal. Transfer to floor. Consider remote tele. Will sign off. : Extubate. Agree with GI consult and PPI therapy. Suggest q6 hour H/H's and transfuse for HgB less than 7. HD per renal. Discontinued all sedating medications. Continue to monitor in ICU given bleeding. Stopped all sedation and discontinued order for this. Not sure why sedation was needed if patient was intubated for altered mental state and inability to protect airway. If waking up should have been extubated. On minimal vent settings with good sats. Once awake, will extubate. HD per renal. CCt 31 minutes. Subjective Date of service: 08/20/21 Interval history: Successful extubation on yesterday. Awake and alert, but nonverbal. Satting 100% on room air Objective Vital Signs - 12hr 08/19/21 08/19/21 08/19/21 22:15 22:30 22:45 Temperature Pulse Rate 103 H 104 H 105 H Pulse Rate [ Left Radial] Respiratory 12 13 17 Rate Blood Pressure 167/62 157/61 153/67 O2 Sat by Pulse 99 97 97 Oximetry 08/19/21 08/19/21 08/19/21 23:00 23:15 23:30 Temperature Pulse Rate 102 H 104 H 104 H Pulse Rate [ Left Radial] Respiratory 15 15 11 L Rate Blood Pressure 167/61 159/64 164/59 O2 Sat by Pulse 98 98 98 Oximetry 08/19/21 08/20/21 08/20/21 23:45 00:00 00:15 Temperature 98.9 F Pulse Rate 104 H 105 H 104 H Pulse Rate [ 104 H Left Radial] Respiratory 16 16 13 Rate Blood Pressure 163/64 160/65 167/62 O2 Sat by Pulse 98 96 97 Oximetry 08/20/21 08/20/21 08/20/21 00:30 00:45 01:01 Temperature Pulse Rate 103 H 104 H 105 H Pulse Rate [ Left Radial] Respiratory 10 L 19 Rate Blood Pressure 160/57 165/66 158/66 O2 Sat by Pulse 98 99 97 Oximetry 08/20/21 08/20/21 08/20/21 01:15 02:01 03:00 Temperature Pulse Rate 102 H 103 H 100 H Pulse Rate [ Left Radial] Respiratory 10 L 16 17 Rate Blood Pressure 154/64 156/60 150/68 O2 Sat by Pulse 98 97 98 Oximetry 08/20/21 08/20/21 08/20/21 03:08 03:48 04:00 Temperature 98.2 F Pulse Rate 97 H 100 H Pulse Rate [ 104 H Left Radial] Respiratory 16 14 Rate Blood Pressure 143/67 O2 Sat by Pulse 100 99 Oximetry 08/20/21 08/20/21 08/20/21 05:00 06:00 07:00 Temperature Pulse Rate 98 H 97 H 98 H Pulse Rate [ Left Radial] Respiratory 12 16 17 Rate Blood Pressure 150/61 157/61 164/67 O2 Sat by Pulse 98 96 96 Oximetry Constitutional: other (on vent) Eyes: non-icteric Effort: normal Ascultation: Bilateral: diminished breath sounds Gastrointestinal: normoactive bowel sounds, soft, non-tender, non-distended Integumentary: normal Extremities: no cyanosis Neurologic: other (on vent) CBC and BMP: 08/20/21 08:32 08/20/21 05:16 ABG, PT/INR, D-dimer: ABG ABG pH 7.373 (7.320-7.450) 08/18/21 04:30 POC ABG pCO2 33.4 mmHg (32.0-48.0) 08/18/21 04:30 ABG pCO2 28.7 mm Hg 08/17/21 03:08 POC ABG pO2 124.7 mmHg (83-108) H 08/18/21 04:30 ABG pO2 45.2 mm Hg (80.0-90.0) L 08/17/21 03:08 POC ABG HCO3 19.0 08/18/21 04:30 ABG O2 Saturation 98.4 (0-100) 08/18/21 04:30 PT/INR, D-dimer PT 13.9 Sec. (12.2-14.9) 08/17/21 04:41 INR 0.96 (0.87-1.13) 08/17/21 04:41 Abnormal lab findings: Abnormal Labs 08/16/21 08/16/21 08/16/21 08:00 20:06 20:06 WBC RBC 3.24 L Hgb Hct MCV 98 H RDW 17.8 H [place] % (Auto) [place] # (Auto) Seg Neutrophils % ABG pH POC ABG pCO2 POC ABG pO2 ABG pO2 ABG O2 Saturation ABG Hemoglobin ABG Oxyhemoglobin ABG Sodium ABG Glucose Oxyhemoglobin Carboxyhemoglobin Sodium Chloride Carbon Dioxide BUN 35 H Creatinine 6.1 H Glucose 175 H POC Glucose Calcium Magnesium Alkaline Phosphatase Total Protein Albumin Arterial Blood Glucose Urine Blood Moderate A Urine WBC (Auto) > 182.0 H U Epithel Cells (Auto) 32.0 H Crossmatch 08/16/21 08/17/21 08/17/21 20:35 03:08 04:41 WBC RBC 2.89 L Hgb 8.9 L Hct 28.3 L MCV 98 H RDW 17.5 H [place] % (Auto) 8.3 H [place] # (Auto) 0.9 H Seg Neutrophils % 71.2 H ABG pH 7.534 H 7.525 H POC ABG pCO2 POC ABG pO2 ABG pO2 248.5 H 45.2 L ABG O2 Saturation 99.4 H 81.2 L ABG Hemoglobin 10.1 L 8.8 L ABG Oxyhemoglobin ABG Sodium ABG Glucose Oxyhemoglobin 79.6 L Carboxyhemoglobin Sodium Chloride Carbon Dioxide BUN Creatinine Glucose POC Glucose Calcium Magnesium Alkaline Phosphatase Total Protein Albumin Arterial Blood Glucose Urine Blood Urine WBC (Auto) U Epithel Cells (Auto) Crossmatch 08/17/21 08/17/21 08/17/21 04:41 04:56 07:50 WBC RBC Hgb Hct MCV RDW [place] % (Auto) [place] # (Auto) Seg Neutrophils % ABG pH 7.505 H POC ABG pCO2 28.4 L POC ABG pO2 184.8 H ABG pO2 ABG O2 Saturation ABG Hemoglobin 10.0 L ABG Oxyhemoglobin 99.0 H ABG Sodium 135.0 L ABG Glucose 142 H Oxyhemoglobin Carboxyhemoglobin 0.3 L Sodium Chloride Carbon Dioxide 21 L BUN 39 H Creatinine 6.1 H Glucose 147 H POC Glucose 152 H Calcium 7.8 L Magnesium Alkaline Phosphatase Total Protein Albumin Arterial Blood Glucose 142 H Urine Blood Urine WBC (Auto) U Epithel Cells (Auto) Crossmatch 08/17/21 08/18/21 08/18/21 11:47 04:15 04:15 WBC RBC Hgb 9.3 L Hct 29.4 L MCV RDW [place] % (Auto) [place] # (Auto) Seg Neutrophils % ABG pH POC ABG pCO2 POC ABG pO2 ABG pO2 ABG O2 Saturation ABG Hemoglobin ABG Oxyhemoglobin ABG Sodium ABG Glucose Oxyhemoglobin Carboxyhemoglobin Sodium Chloride Carbon Dioxide 17 L BUN 40 H Creatinine 6.0 H Glucose POC Glucose 108 H Calcium 7.9 L Magnesium Alkaline Phosphatase 144 H Total Protein 6.1 L Albumin 1.6 L Arterial Blood Glucose Urine Blood Urine WBC (Auto) U Epithel Cells (Auto) Crossmatch 08/18/21 08/18/21 08/18/21 04:30 20:42 20:49 WBC RBC Hgb 6.9 L Hct 21.5 L D MCV RDW [place] % (Auto) [place] # (Auto) Seg Neutrophils % ABG pH POC ABG pCO2 POC ABG pO2 124.7 H ABG pO2 ABG O2 Saturation ABG Hemoglobin 10.1 L ABG Oxyhemoglobin 98.1 H ABG Sodium 135.5 L ABG Glucose Oxyhemoglobin Carboxyhemoglobin 0 L Sodium Chloride Carbon Dioxide BUN Creatinine Glucose POC Glucose 133 H Calcium Magnesium Alkaline Phosphatase Total Protein Albumin Arterial Blood Glucose Urine Blood Urine WBC (Auto) U Epithel Cells (Auto) Crossmatch 08/18/21 08/19/21 08/19/21 20:50 05:38 08:06 WBC 21.3 H RBC 2.55 L Hgb 7.5 L Hct 23.4 L MCV RDW 22.1 H [place] % (Auto) [place] # (Auto) Seg Neutrophils % ABG pH POC ABG pCO2 POC ABG pO2 ABG pO2 ABG O2 Saturation ABG Hemoglobin ABG Oxyhemoglobin ABG Sodium ABG Glucose Oxyhemoglobin Carboxyhemoglobin Sodium Chloride Carbon Dioxide BUN Creatinine Glucose POC Glucose 147 H Calcium Magnesium Alkaline Phosphatase Total Protein Albumin Arterial Blood Glucose Urine Blood Urine WBC (Auto) U Epithel Cells (Auto) Crossmatch See Detail 08/19/21 08/19/21 08/19/21 08:06 11:09 17:25 WBC RBC Hgb Hct MCV RDW [place] % (Auto) [place] # (Auto) Seg Neutrophils % ABG pH POC ABG pCO2 POC ABG pO2 ABG pO2 ABG O2 Saturation ABG Hemoglobin ABG Oxyhemoglobin ABG Sodium ABG Glucose Oxyhemoglobin Carboxyhemoglobin Sodium 136 L Chloride 97.8 L Carbon Dioxide 19 L BUN 23 H Creatinine 4.0 H Glucose 172 H POC Glucose 165 H 115 H Calcium 7.1 L Magnesium Alkaline Phosphatase Total Protein Albumin Arterial Blood Glucose Urine Blood Urine WBC (Auto) U Epithel Cells (Auto) Crossmatch 08/19/21 08/19/21 08/20/21 22:25 23:38 05:16 WBC 14.0 H RBC 2.78 L Hgb 8.7 L 8.4 L Hct 27.5 L 24.8 L MCV RDW 19.8 H [place] % (Auto) [place] # (Auto) Seg Neutrophils % ABG pH POC ABG pCO2 POC ABG pO2 ABG pO2 ABG O2 Saturation ABG Hemoglobin ABG Oxyhemoglobin ABG Sodium ABG Glucose Oxyhemoglobin Carboxyhemoglobin Sodium Chloride Carbon Dioxide BUN Creatinine Glucose POC Glucose 117 H Calcium Magnesium Alkaline Phosphatase Total Protein Albumin Arterial Blood Glucose Urine Blood Urine WBC (Auto) U Epithel Cells (Auto) Crossmatch 08/20/21 08/20/21 08/20/21 05:16 05:30 08:32 WBC RBC Hgb 9.2 L Hct 28.7 L MCV RDW [place] % (Auto) [place] # (Auto) Seg Neutrophils % ABG pH POC ABG pCO2 POC ABG pO2 ABG pO2 ABG O2 Saturation ABG Hemoglobin ABG Oxyhemoglobin ABG Sodium ABG Glucose Oxyhemoglobin Carboxyhemoglobin Sodium Chloride Carbon Dioxide 21 L BUN 29 H Creatinine 4.8 H Glucose 125 H POC Glucose 118 H Calcium 7.6 L Magnesium 1.50 L Alkaline Phosphatase Total Protein Albumin Arterial Blood Glucose Urine Blood Urine WBC (Auto) U Epithel Cells (Auto) Crossmatch
--- NOTE | 2021-08-20 14:11 | Event Note ---
Date: 08/20/21 Spoke with the primary care physician of patient, Dr. Shiva Barnes. We discussed her time in between hospitalizations and he states that he suspects patient was given gabapentin. Called who i was able to reach on the second attempt. He states that he had an rx for gabapentin which he administered to patient. This was not a discharge medication from patient's first admission so I suspect it was an old prescription that was filled. I updated on patient's hospital course. I also asked if he was the point of contact for the family. He stated that he was and we both agreed that all information would be communicated to him and then could be disseminated to the rest of the family.
--- NOTE | 2021-08-20 14:13 | Consultation ---
History of Present Illness Consult date: 08/20/21 Reason for Consult: Altered mentation ,Admitted 08/16 History of present illness: Altered mental status History of present illness: 70-year-old -[place] female with known history of hypertension, diabetes mellitus, end-stage renal disease on dialysis brought in by EMS today for changes in mental status. According to family patient was said to have been altered earlier today and has been less responsive. She was recently discharged from this hospital after having vascular surgery for varicose veins and has been prescribed Dilaudid 2 mg every 6 hours at that time. During her recent hospital admission she had been placed on Narcan drip possibly secondary to an overdose of the Dilaudid. However today, family does not feel patient had overdosed on her medications as they had been administrating her medications to her. Upon arrival in the emergency room she was given some Narcan without any significant improvement. Blood sugar at was said to be in the 200s upon initial presentation. She was found to be obtunded and subsequently intubated to protect her airway. Work-up in the emergency room, chest x-ray, CT scan of the head has been unremarkable. Urinalysis reveals UTI. Patient be started on empiric IV antibiotics. yesterday pt. was extubated she is confused with no clear speech out put she does not respond to command seems to moves all extremities she is with leukocytosis 21K--14K currently afebril BUN /Cr.# down to 29/4.8 she is on cefipm Past History Past Medical History: arthritis, diabetes, dialysis, ESRD, heart failure, hypertension, other (History of asthma) Past Surgical History: Other ( bilateral knee replacements, left shoulder surgery, chronic back pain and leg pain, recent varicose vein surgery) Social history: lives with family Family history: no significant family history Medications and Allergies Allergies Allergy/AdvReac Type Severity Reaction Status Date / Time Penicillins Allergy Unknown Itching Verified 08/11/21 17:39 Home Medications Medication Instructions Recorded Confirmed Last Taken Type Albuterol Sulfate [Ventolin Hfa] 2 puff IH Q6H PRN 08/30/18 08/11/21 10/08/18 History Insulin Lispro [HumaLOG VIAL] 0 units SQ AC #1 vial 10/06/18 08/11/21 10/08/18 Rx Aspirin EC [Halfprin EC] 81 mg PO QDAY #90 tablet 05/02/21 08/08/21 Unknown Rx AtorvaSTATin [Lipitor] 40 mg PO QHS 08/08/21 08/08/21 Unknown History Cinacalcet [Sensipar] 30 mg PO QDAY 08/08/21 08/08/21 Unknown History Furosemide [Lasix TAB] 80 mg PO QDAY 08/08/21 08/08/21 Unknown History Metoprolol Succinate [Toprol Xl] 25 mg PO DAILY 08/08/21 08/08/21 Unknown History Nortriptyline [Pamelor] 25 mg PO DAILY 08/08/21 08/08/21 Unknown History calcitrioL [Rocaltrol] 0.5 mcg PO QDAY 08/08/21 08/08/21 Unknown History calcitrioL [Rocaltrol] 0.5 mcg PO QDAY 08/08/21 08/08/21 Unknown History metOLazone [Zaroxolyn] 5 mg PO QDAY 08/08/21 08/08/21 Unknown History Aspirin [Aspirin BABY CHEW TAB] 81 mg PO QDAY 30 Days #30 tab.chew 08/14/21 Unknown Rx AtorvaSTATin [Lipitor] 40 mg PO QHS #90 tablet 08/14/21 Unknown Rx Clopidogrel [Plavix] 75 mg PO QDAY 30 Days #30 tablet 08/14/21 Unknown Rx Hydralazine HCl 50 mg PO BID 30 Days #30 tab 08/14/21 Unknown Rx amLODIPine 5 mg PO QDAY 30 Days #30 tablet 08/14/21 Unknown Rx Active Meds: Active Medications Acetaminophen (Acetaminophen 650 Mg Rect Supp) 650 mg AL Q6H PRN PRN Reason: Pain MILD(1-3)/Fever >100.5/PÉREZ Dextrose (Dextrose 50% In Water (25gm) 50 Ml Syringe) 50 ml IV Q30MIN PRN; Protocol PRN Reason: Hypoglycemia Dextrose (Dextrose 50% In Water (25gm) 50 Ml Syringe) 50 ml IV Q30MIN PRN; Protocol PRN Reason: Hypoglycemia Heparin Sodium (Porcine) (Heparin 5,000 Unit/1 Ml Vial) 5,000 unit SUB-Q Q8HR LADAN Propofol (Diprivan 10 Mg/Ml) 1,000 mg in 100 mls @ 2.73 mls/hr IV TITR LADAN; Protocol Last Titration: 08/16/21 19:58 Dose: 15 mcg/kg/min, 8.19 mls/hr Documented by: Cefepime HCl (Cefepime/Ns 2 Gm/100 Ml) 2 gm in 100 mls @ 200 mls/hr IV ONCE ONE; Protocol Stop: 08/16/21 21:47 Sodium Chloride (Nacl 0.9% 1000 Ml) 1,000 mls @ 125 mls/hr IV DIRECT LADAN Insulin Human Lispro (Insulin Lispro 100 Unit/Ml) 0 unit SUB-Q ACHS LADAN; Protocol Morphine Sulfate (Morphine 2 Mg/1 Ml Inj) 2 mg IV Q4H PRN PRN Reason: Pain, Moderate (4-6) Morphine Sulfate (Morphine 4 Mg/1 Ml Inj) 4 mg IV Q4H PRN PRN Reason: Pain , Severe (7-10) Naloxone HCl (Naloxone 0.4 Mg/1 Ml Inj) 0.4 mg IV Q2MIN PRN PRN Reason: Res Rate </= 8 or 02 SAT < 92% Last Admin: 08/16/21 18:53 Dose: 0.4 mg Documented by: Ondansetron HCl (Ondansetron 4 Mg/2 Ml Inj) 4 mg IV Q8H PRN PRN Reason: Nausea And Vomiting Sodium Chloride (Sodium Chloride 0.9% 10 Ml Flush Syringe) 10 ml IV BID LADAN Sodium Chloride (Sodium Chloride 0.9% 10 Ml Flush Syringe) 10 ml IV PRN PRN PRN Reason: LINE FLUSH Review of Systems ROS unobtainable: due to endotracheal tube Past History Past Medical History: arthritis, diabetes, dialysis, ESRD, heart failure, hypertension, other (History of asthma) Past Surgical History: Other ( bilateral knee replacements, left shoulder surgery, chronic back pain and leg pain, recent varicose vein surgery) Social history: lives with family Family history: no significant family history Medications and Allergies Allergies Allergy/AdvReac Type Severity Reaction Status Date / Time Penicillins Allergy Unknown Itching Verified 08/11/21 17:39 Home Medications Medication Instructions Recorded Confirmed Last Taken Type Albuterol Sulfate [Ventolin Hfa] 2 puff IH Q6H PRN 08/30/18 08/18/21 10/08/18 History Insulin Lispro [HumaLOG VIAL] 0 units SQ AC #1 vial 10/06/18 08/18/21 08/16/21 Rx Cinacalcet [Sensipar] 30 mg PO QDAY 10/22/21 11/01/21 Unknown History Furosemide [Lasix TAB] 80 mg PO QDAY 08/08/21 08/18/21 Unknown History Metoprolol Succinate [Toprol Xl] 25 mg PO DAILY 08/08/21 08/18/21 Unknown History Nortriptyline [Pamelor] 25 mg PO DAILY 08/08/21 08/18/21 Unknown History calcitrioL [Rocaltrol] 0.5 mcg PO QDAY 08/08/21 08/18/21 Unknown History metOLazone [Zaroxolyn] 5 mg PO QDAY 08/08/21 08/18/21 Unknown History Aspirin [Aspirin BABY CHEW TAB] 81 mg PO QDAY 30 Days #30 tab.chew 08/14/21 08/18/21 Unknown Rx AtorvaSTATin [Lipitor] 40 mg PO QHS #90 tablet 08/14/21 08/18/21 Unknown Rx Clopidogrel [Plavix] 75 mg PO QDAY 30 Days #30 tablet 08/14/21 08/18/21 Unknown Rx Hydralazine HCl 50 mg PO BID 30 Days #30 tab 08/14/21 08/18/21 Unknown Rx amLODIPine 5 mg PO QDAY 30 Days #30 tablet 08/14/21 08/18/21 Unknown Rx Active Meds: Active Medications Acetaminophen (Acetaminophen 650 Mg Rect Supp) 650 mg AL Q6H PRN PRN Reason: Pain MILD(1-3)/Fever >100.5/PÉREZ Dextrose (Dextrose 50% In Water (25gm) 50 Ml Syringe) 0 ml IV Q30MIN PRN; Protocol PRN Reason: Hypoglycemia Last Admin: 08/17/21 16:54 Dose: 10 ml Documented by: Heparin Sodium (Porcine) (Heparin 5,000 Unit/1 Ml Vial) 5,000 unit SUB-Q Q8HR LADAN Last Admin: 08/20/21 06:00 Dose: Not Given Documented by: Heparin Sodium (Porcine) (Heparin 10,000 Units/10 Ml Vial) 3,000 unit IV TITO PRN PRN Reason: hemodialysis Hydralazine HCl (Hydralazine 20 Mg/1 Ml Inj) 10 mg IV Q4HR PRN PRN Reason: Hypertension Last Admin: 08/17/21 04:44 Dose: 10 mg Documented by: Sodium Chloride (Nacl 0.9%) 100 mls @ 999 mls/hr IV TITO PRN PRN Reason: Hypotension Cefepime HCl (Cefepime/Ns 2 Gm/100 Ml) 2 gm in 100 mls @ 200 mls/hr IV Q24H [facility]; Protocol Stop: 08/25/21 10:29 Last Infusion: 08/20/21 13:53 Dose: Infused Documented by: Insulin Human Lispro (Insulin Lispro 100 Unit/Ml) 0 unit SUB-Q Q6HR [facility]; Protocol Last Admin: 08/20/21 13:53 Dose: Not Given Documented by: Naloxone HCl (Naloxone 0.4 Mg/1 Ml Inj) 0.4 mg IV Q2MIN PRN PRN Reason: Res Rate </= 8 or 02 SAT < 92% Last Admin: 08/16/21 18:53 Dose: 0.4 mg Documented by: Ondansetron HCl (Ondansetron 4 Mg/2 Ml Inj) 4 mg IV Q8H PRN PRN Reason: Nausea And Vomiting Pantoprazole Sodium (Pantoprazole 40 Mg Inj) 40 mg IV QDAY [facility] Last Admin: 08/20/21 09:41 Dose: 40 mg Documented by: Sodium Chloride (Sodium Chloride 0.9% 10 Ml Flush Syringe) 10 ml IV BID [facility] Last Admin: 08/20/21 09:42 Dose: 10 ml Documented by: Sodium Chloride (Sodium Chloride 0.9% 10 Ml Flush Syringe) 10 ml IV PRN PRN PRN Reason: LINE FLUSH Physical Examination - Vital Signs Vital Signs: Vital Signs Temp 97.9 F 08/16/21 18:56 - Constitutional General appearance: comfortable - EENT EENT: Present: PERRL, mucous membranes moist - Respiratory Respiratory: Present: chest non-tender, lungs clear, rhonchi - Cardiovascular Cardiovascular: Present: regular rate, normal S1, normal S2 Extremities: Present: no peripheral edema bilatateraly, no clubbing, cyanosis - Gastrointestinal Gastrointestinal: Present: normoactive bowel sounds - Integumentary Integumentary: Present: normal - Neurologic Cranial nerve examination: PERRL, EOMI, intact Speech examination: other (not follow command star at me not responding to verbal command) Detailed motor examination: grossly full strength in - Level of Consciousness 1a. Level of Consciousness: alert/keenly responsive - LOC Questions 1b. LOC Questions: aphasic - LOC Command 1c. LOC Commands: performs no tasks correctly - Best Gaze 2. Best Gaze: normal - Visual 3. Visual: no visual loss - Facial Palsy 4. Facial Palsy: normal symmetrical movement - Motor Arm 5a. Motor Arm Left: no drift 5b. Motor Arm Right: no drift - Motor Leg 6a. Motor Leg Left: no drift 6b. Motor Leg Right: no drift - Limb Ataxia 7. Limb Ataxia: absent - Sensory 8. Sensory: normal - Best Language 9. Best Language: mute/global aphasia - Dysarthria 10. Dysarthria: mute/anarrthric - Extinction and Inattention 11. Extinction/Inattention: no abnormality - Scoring Total Score: 9 Stroke Severity: Moderate Stroke Results - Laboratory Findings CBC and BMP: 08/20/21 08:32 08/20/21 05:16 Abnormal Lab Findings: Abnormal Labs 08/16/21 08/16/21 08/16/21 08:00 20:06 20:06 WBC RBC 3.24 L Hgb Hct MCV 98 H RDW 17.8 H [place] % (Auto) [place] # (Auto) Seg Neutrophils % ABG pH POC ABG pCO2 POC ABG pO2 ABG pO2 ABG O2 Saturation ABG Hemoglobin ABG Oxyhemoglobin ABG Sodium ABG Glucose Oxyhemoglobin Carboxyhemoglobin Sodium Chloride Carbon Dioxide BUN 35 H Creatinine 6.1 H Glucose 175 H POC Glucose Calcium Magnesium Alkaline Phosphatase Total Protein Albumin Arterial Blood Glucose Urine Blood Moderate A Urine WBC (Auto) > 182.0 H U Epithel Cells (Auto) 32.0 H Crossmatch 08/16/21 08/17/21 08/17/21 20:35 03:08 04:41 WBC RBC 2.89 L Hgb 8.9 L Hct 28.3 L MCV 98 H RDW 17.5 H [place] % (Auto) 8.3 H [place] # (Auto) 0.9 H Seg Neutrophils % 71.2 H ABG pH 7.534 H 7.525 H POC ABG pCO2 POC ABG pO2 ABG pO2 248.5 H 45.2 L ABG O2 Saturation 99.4 H 81.2 L ABG Hemoglobin 10.1 L 8.8 L ABG Oxyhemoglobin ABG Sodium ABG Glucose Oxyhemoglobin 79.6 L Carboxyhemoglobin Sodium Chloride Carbon Dioxide BUN Creatinine Glucose POC Glucose Calcium Magnesium Alkaline Phosphatase Total Protein Albumin Arterial Blood Glucose Urine Blood Urine WBC (Auto) U Epithel Cells (Auto) Crossmatch 08/17/21 08/17/21 08/17/21 04:41 04:56 07:50 WBC RBC Hgb Hct MCV RDW [place] % (Auto) [place] # (Auto) Seg Neutrophils % ABG pH 7.505 H POC ABG pCO2 28.4 L POC ABG pO2 184.8 H ABG pO2 ABG O2 Saturation ABG Hemoglobin 10.0 L ABG Oxyhemoglobin 99.0 H ABG Sodium 135.0 L ABG Glucose 142 H Oxyhemoglobin Carboxyhemoglobin 0.3 L Sodium Chloride Carbon Dioxide 21 L BUN 39 H Creatinine 6.1 H Glucose 147 H POC Glucose 152 H Calcium 7.8 L Magnesium Alkaline Phosphatase Total Protein Albumin Arterial Blood Glucose 142 H Urine Blood Urine WBC (Auto) U Epithel Cells (Auto) Crossmatch 08/17/21 08/18/21 08/18/21 11:47 04:15 04:15 WBC RBC Hgb 9.3 L Hct 29.4 L MCV RDW [place] % (Auto) [place] # (Auto) Seg Neutrophils % ABG pH POC ABG pCO2 POC ABG pO2 ABG pO2 ABG O2 Saturation ABG Hemoglobin ABG Oxyhemoglobin ABG Sodium ABG Glucose Oxyhemoglobin Carboxyhemoglobin Sodium Chloride Carbon Dioxide 17 L BUN 40 H Creatinine 6.0 H Glucose POC Glucose 108 H Calcium 7.9 L Magnesium Alkaline Phosphatase 144 H Total Protein 6.1 L Albumin 1.6 L Arterial Blood Glucose Urine Blood Urine WBC (Auto) U Epithel Cells (Auto) Crossmatch 08/18/21 08/18/21 08/18/21 04:30 20:42 20:49 WBC RBC Hgb 6.9 L Hct 21.5 L D MCV RDW [place] % (Auto) [place] # (Auto) Seg Neutrophils % ABG pH POC ABG pCO2 POC ABG pO2 124.7 H ABG pO2 ABG O2 Saturation ABG Hemoglobin 10.1 L ABG Oxyhemoglobin 98.1 H ABG Sodium 135.5 L ABG Glucose Oxyhemoglobin Carboxyhemoglobin 0 L Sodium Chloride Carbon Dioxide BUN Creatinine Glucose POC Glucose 133 H Calcium Magnesium Alkaline Phosphatase Total Protein Albumin Arterial Blood Glucose Urine Blood Urine WBC (Auto) U Epithel Cells (Auto) Crossmatch 08/18/21 08/19/21 08/19/21 20:50 05:38 08:06 WBC 21.3 H RBC 2.55 L Hgb 7.5 L Hct 23.4 L MCV RDW 22.1 H [place] % (Auto) [place] # (Auto) Seg Neutrophils % ABG pH POC ABG pCO2 POC ABG pO2 ABG pO2 ABG O2 Saturation ABG Hemoglobin ABG Oxyhemoglobin ABG Sodium ABG Glucose Oxyhemoglobin Carboxyhemoglobin Sodium Chloride Carbon Dioxide BUN Creatinine Glucose POC Glucose 147 H Calcium Magnesium Alkaline Phosphatase Total Protein Albumin Arterial Blood Glucose Urine Blood Urine WBC (Auto) U Epithel Cells (Auto) Crossmatch See Detail 08/19/21 08/19/21 08/19/21 08:06 11:09 17:25 WBC RBC Hgb Hct MCV RDW [place] % (Auto) [place] # (Auto) Seg Neutrophils % ABG pH POC ABG pCO2 POC ABG pO2 ABG pO2 ABG O2 Saturation ABG Hemoglobin ABG Oxyhemoglobin ABG Sodium ABG Glucose Oxyhemoglobin Carboxyhemoglobin Sodium 136 L Chloride 97.8 L Carbon Dioxide 19 L BUN 23 H Creatinine 4.0 H Glucose 172 H POC Glucose 165 H 115 H Calcium 7.1 L Magnesium Alkaline Phosphatase Total Protein Albumin Arterial Blood Glucose Urine Blood Urine WBC (Auto) U Epithel Cells (Auto) Crossmatch 08/19/21 08/19/21 08/20/21 22:25 23:38 05:16 WBC 14.0 H RBC 2.78 L Hgb 8.7 L 8.4 L Hct 27.5 L 24.8 L MCV RDW 19.8 H [place] % (Auto) [place] # (Auto) Seg Neutrophils % ABG pH POC ABG pCO2 POC ABG pO2 ABG pO2 ABG O2 Saturation ABG Hemoglobin ABG Oxyhemoglobin ABG Sodium ABG Glucose Oxyhemoglobin Carboxyhemoglobin Sodium Chloride Carbon Dioxide BUN Creatinine Glucose POC Glucose 117 H Calcium Magnesium Alkaline Phosphatase Total Protein Albumin Arterial Blood Glucose Urine Blood Urine WBC (Auto) U Epithel Cells (Auto) Crossmatch 08/20/21 08/20/21 08/20/21 05:16 05:30 08:32 WBC RBC Hgb 9.2 L Hct 28.7 L MCV RDW [place] % (Auto) [place] # (Auto) Seg Neutrophils % ABG pH POC ABG pCO2 POC ABG pO2 ABG pO2 ABG O2 Saturation ABG Hemoglobin ABG Oxyhemoglobin ABG Sodium ABG Glucose Oxyhemoglobin Carboxyhemoglobin Sodium Chloride Carbon Dioxide 21 L BUN 29 H Creatinine 4.8 H Glucose 125 H POC Glucose 118 H Calcium 7.6 L Magnesium 1.50 L Alkaline Phosphatase Total Protein Albumin Arterial Blood Glucose Urine Blood Urine WBC (Auto) U Epithel Cells (Auto) Crossmatch 08/20/21 12:10 WBC RBC Hgb Hct MCV RDW [place] % (Auto) [place] # (Auto) Seg Neutrophils % ABG pH POC ABG pCO2 POC ABG pO2 ABG pO2 ABG O2 Saturation ABG Hemoglobin ABG Oxyhemoglobin ABG Sodium ABG Glucose Oxyhemoglobin Carboxyhemoglobin Sodium Chloride Carbon Dioxide BUN Creatinine Glucose POC Glucose 141 H Calcium Magnesium Alkaline Phosphatase Total Protein Albumin Arterial Blood Glucose Urine Blood Urine WBC (Auto) U Epithel Cells (Auto) Crossmatch Assessment and Plan Assessment and Plan - Patient Problems # Encephalopathy on intial presentation was intubated and sedated -08/19 she is extubated not following command -moves all limbs -? Aphasia Vs seizure -NIH#9 today -OnCefepim ? trigger seizure ? diagnosis of exclusion ??? -MRI brain is pending -EEG pending -Possibly secondary to underlying infection. -Urinalysis-reveals UTI. -Patient placed on empiric IV antibiotics and IV fluid. # Diabetes -Patient placed on sliding scale insulin. -We will monitor Accu-Cheks closely.- # HTN (hypertension) -We will resume routine home medications once able to tolerate p.o. oral intake. -Meanwhile we will place on IV hydralazine as needed for blood pressure control # ESRD (end stage renal disease) -We will place consult to nephrology for evaluation and for dialysis during this admission. -BUN/Cr#29/4.8 # Urinary tract infection -Patient commenced on empiric IV antibiotics. # DVT prophylaxis -Patient placed on subcutaneous heparin. # Full code status -Patient is full code. will follow after review MRI brain and EEG
--- NOTE | 2021-08-20 15:47 | Progress Note ---
Assessment and Plan Assessment and plan: This is a 70-year-old female with HTN, CAD s/p stent, DM, ESRD on HD, calciphylaxis admitted with acute hypoxic respiratory failure, UTI Neuro: Metabolic versus toxic encephalopathy -CT head with no acute findings -Avoid delirium -Reorientation as needed -Maintain sleep-wake cycle -Neurology consulted, appreciate recommendations -MRI brain and EEG pending Cardio: h/o HTN, CAD s/p stent -resume home hypertensive regimen after bedside swallow -Patient failed bedside swallow and speech recommended n.p.o. -Blood pressure monitor per protocol -As needed hydralazine -Resume home Lipitor -Hold home aspirin, Plavix Respiratory: Acute hypoxic respiratory failure -Patient was intubated 08/16 and extubated on 08/19 -Patient is currently on room air -Pulmonary hygiene -Supplemental oxygen as needed -SPO2 monitoring GI: Hematochezia -GI consulted, appreciate recommendations -Protonix IV -Currently n.p.o. -Patient failed bedside swallow evaluation -Patient failed speech evaluation -Started on D10 at 20 mL/h 1 L -24-hour +540 -Hold BR at this time : ESRD on HD, calciphylaxis, hyponatremia, hypochloremia, metabolic acidosis -Nephrology consulted, appreciate recommendations -HD per nephrology -Renally dose medications -Strict intake and output -Daily weights -Trend BMP ID: E. coli and Klebsiella pneumonia UTI, tracheal aspirate with Pseudomonas aeruginosa -Patient is on cefepime -Trend fever and WBC curve Heme: Anemia of chronic disease, GI bleed -S/p 2 units PRBC -Transfuse for less than 7 hemoglobin -Trend CBC -Epogen per nephrology -H/H every 6 Endo: h/o DM -Accu-Cheks every 6 -SSI as needed -Avoid hypoglycemia The high probability of a clinically significant, sudden or life threatening deterioration of the [renal, neuro] system(s) required my full and direct attention, intervention and personal management. The aggregate critical care time was [60] minutes. This time is in addition to time spent performing reported procedures but includes the following: [x] Data Review and interpretation [x] Patient assessment and monitoring of vital signs [x] Documentation [x] Medication orders and management Disposition Plan: Transfer to floor Total Time Spent with Patient (Minutes): 60 History Interval history: This is a 70-year-old female with HTN, DM, ESRD on HD, calciphylaxis who presented to the emergency department on 08/16 with altered mental status and decreased responsiveness. Patient was recently admitted to the hospital after possible overdose on Dilaudid after vascular surgery for varicose veins on a Narcan drip. Upon arrival to the emergency department patient was given Narcan without significant improvement and had hypoglycemia into the 200s on initial presentation. Patient was obtunded and subsequently intubated to protect her airway. Work-up in the emergency department included a CXR and CT scan of the head which were unremarkable. Urinalysis revealed UTI patient was started on empiric antibiotics. Patient was admitted to the hospitalist service with consults to nephrology and [facility]. 08/17/21: Pt intubated, CC and nephro consulted, follow cx, cont abx, gurded prognosis 08/18/21: s/p HD today, plan to d/c all sedation and to monitor mental status, follow am lab. s/p one unit PRBC today 08/19/21: Patient was extubated today, urine culture resulted with E. coli and Klebsiella pneumoniae, trach aspirate with Pseudomonas aeruginosa however all are sensitive to cefepime which the patient is already on. 08/20: Neurology consulted, MRI brain and EEG pending, patient will be transferred out of the unit with remote telemetry as her H&H is stable. GI may scope the patient after another dialysis session if improvement with mentation. Patient failed speech evaluation and will be started on D10 while n.p.o. Hospitalist Physical - Constitutional Vitals: Temp Pulse Resp BP Pulse Ox 98.1 F 97 H 18 131/59 99 08/20/21 13:45 08/20/21 15:30 08/20/21 13:45 08/20/21 15:30 08/20/21 13:45 General appearance: Present: well-nourished - EENT Eyes: Present: PERRL, EOM intact ENT: dentition normal - Neck Neck: Present: normal ROM - Respiratory Respiratory effort: normal Respiratory: bilateral: CTA - Cardiovascular Rhythm: regular Heart Sounds: Present: S1 & S2. Absent: systolic murmur, diastolic murmur - Extremities Extremities: no ischemia, pulses intact, pulses symmetrical, No edema, normal temperature, normal color Peripheral Pulses: within normal limits - Abdominal General gastrointestinal: soft, non-tender, non-distended, normal bowel sounds - Integumentary Integumentary: Present: warm, dry - Psychiatric Psychiatric: other - Neurologic Neurologic: moves all extremities, other (Patient is nonverbal, will track/focus, intermittently follows commands) - Allied Health Allied health notes reviewed: nursing, RT, social work Results - Labs CBC & Chem 7: 08/20/21 08:32 08/20/21 05:16 Labs: Laboratory Last Values WBC 14.0 K/mm3 (4.5-11.0) H 08/20/21 05:16 RBC 2.78 M/mm3 (3.65-5.03) L 08/20/21 05:16 Hgb 9.2 gm/dl (10.1-14.3) L 08/20/21 08:32 Hct 28.7 % (30.3-42.9) L 08/20/21 08:32 MCV 89 fl (79-97) 08/20/21 05:16 MCH 30 pg (28-32) 08/20/21 05:16 MCHC 34 % (30-34) 08/20/21 05:16 RDW 19.8 % (13.2-15.2) H 08/20/21 05:16 Plt Count 312 K/mm3 (140-440) 08/20/21 05:16 Lymph % (Auto) 17.4 % (13.4-35.0) 08/17/21 04:41 [place] % (Auto) 8.3 % (0.0-7.3) H 08/17/21 04:41 Eos % (Auto) 2.6 % (0.0-4.3) 08/17/21 04:41 Baso % (Auto) 0.5 % (0.0-1.8) 08/17/21 04:41 Lymph # (Auto) 1.9 K/mm3 (1.2-5.4) 08/17/21 04:41 [place] # (Auto) 0.9 K/mm3 (0.0-0.8) H 08/17/21 04:41 Eos # (Auto) 0.3 K/mm3 (0.0-0.4) 08/17/21 04:41 Baso # (Auto) 0.1 K/mm3 (0.0-0.1) 08/17/21 04:41 Seg Neutrophils % 71.2 % (40.0-70.0) H 08/17/21 04:41 Seg Neutrophils # 7.6 K/mm3 (1.8-7.7) 08/17/21 04:41 PT 13.9 Sec. (12.2-14.9) 08/17/21 04:41 INR 0.96 (0.87-1.13) 08/17/21 04:41 ABG pH 7.373 (7.320-7.450) 08/18/21 04:30 POC ABG pCO2 33.4 mmHg (32.0-48.0) 08/18/21 04:30 ABG pCO2 28.7 mm Hg 08/17/21 03:08 POC ABG pO2 124.7 mmHg (83-108) H 08/18/21 04:30 ABG pO2 45.2 mm Hg (80.0-90.0) L 08/17/21 03:08 POC ABG HCO3 19.0 08/18/21 04:30 ABG HCO3 23.2 mmol/L (20.0-26.0) 08/17/21 03:08 ABG O2 Saturation 98.4 (0-100) 08/18/21 04:30 ABG O2 Content 9.8 (0.0-44) 08/17/21 03:08 POC ABG Base Excess -5.5 08/18/21 04:30 ABG Base Excess 0.8 mmol/L (-2.0-3.0) 08/17/21 03:08 ABG Hemoglobin 10.1 (12.0-17.5) L 08/18/21 04:30 ABG Oxyhemoglobin 98.1 (94-98) H 08/18/21 04:30 ABG Carboxyhemoglobin 1.5 % (0.0-5.0) 08/17/21 03:08 ABG Methemoglobin 0.3 (0.0-1.5) 08/18/21 04:30 ABG Sodium 135.5 mmol/L (136.0-145.0) L 08/18/21 04:30 ABG Potassium 4.0 mmol/L (3.40-4.50) 08/18/21 04:30 ABG Chloride 106.0 mmol/L (98-107) 08/18/21 04:30 ABG Glucose 80 mg/dL (65-95) 08/18/21 04:30 Oxyhemoglobin 79.6 % (95.0-99.0) L 08/17/21 03:08 Carboxyhemoglobin 0 (0.5-1.5) L 08/18/21 04:30 FiO2 45 % 08/17/21 03:08 FiO2 % 30.0 08/18/21 04:30 Sodium 140 mmol/L (137-145) 08/20/21 05:16 Potassium 3.9 mmol/L (3.6-5.0) 08/20/21 05:16 Chloride 98.9 mmol/L (98-107) 08/20/21 05:16 Carbon Dioxide 21 mmol/L (22-30) L 08/20/21 05:16 Anion Gap 24 mmol/L 08/20/21 05:16 BUN 29 mg/dL (7-17) H 08/20/21 05:16 Creatinine 4.8 mg/dL (0.6-1.2) H 08/20/21 05:16 Estimated GFR 9 ml/min 08/20/21 05:16 BUN/Creatinine Ratio 6 % 08/20/21 05:16 Glucose 125 mg/dL (65-100) H 08/20/21 05:16 POC Glucose 141 mg/dL (70-105) H 08/20/21 12:10 Lactic Acid 1.00 mmol/L (0.7-2.0) 08/16/21 22:44 Calcium 7.6 mg/dL (8.4-10.2) L 08/20/21 05:16 Phosphorus 4.10 mg/dL (2.5-4.5) 08/20/21 05:16 Magnesium 1.50 mg/dL (1.7-2.3) L 08/20/21 05:16 Total Bilirubin 0.20 mg/dL (0.1-1.2) 08/18/21 04:15 AST 23 units/L (5-40) 08/18/21 04:15 ALT 11 units/L (7-56) 08/18/21 04:15 Alkaline Phosphatase 144 units/L (35-129) H 08/18/21 04:15 Total Protein 6.1 g/dL (6.3-8.2) L 08/18/21 04:15 Albumin 1.6 g/dL (3.9-5) L 08/18/21 04:15 Albumin/Globulin Ratio 0.4 % 08/18/21 04:15 Arterial Blood Glucose 80 mg/dL (65-95) 08/18/21 04:30 Urine Color Yellow (Yellow) 08/16/21 08:00 Urine Turbidity Turbid (Clear) 08/16/21 08:00 Urine pH 6.0 (5.0-7.0) 08/16/21 08:00 Ur Specific [place] 1.010 (1.003-1.030) 08/16/21 08:00 Urine Protein >500 mg/dL (Negative) 08/16/21 08:00 Urine Glucose (UA) Negative mg/dL (Negative) 08/16/21 08:00 Urine Ketones Negative mg/dL (Negative) 08/16/21 08:00 Urine Blood Moderate (Negative) A 08/16/21 08:00 Urine Nitrite Negative (Negative) 08/16/21 08:00 Ur Reducing Substances Not Reportable 08/16/21 08:00 Urine Bilirubin Negative (Negative) 08/16/21 08:00 Urine Ictotest Not Reportable 08/16/21 08:00 Urine Urobilinogen < 2.0 mg/dL (<2.0) 08/16/21 08:00 Ur Leukocyte Esterase Large (Negative) 08/16/21 08:00 Urine WBC (Auto) > 182.0 /HPF (0.0-6.0) H 08/16/21 08:00 Urine RBC (Auto) 17.0 /HPF (0.0-6.0) 08/16/21 08:00 U Epithel Cells (Auto) 32.0 /HPF (0-13.0) H 08/16/21 08:00 Urine Bacteria (Auto) 4+ /HPF (Negative) 08/16/21 08:00 Urine Mucus 1+ /HPF 08/16/21 08:00 Urine Yeast (Budding) 2+ /HPF 08/16/21 08:00 Urine Opiates Screen Negative 08/16/21 20:58 Urine Methadone Screen Negative 08/16/21 20:58 Ur Barbiturates Screen Negative 08/16/21 20:58 Ur Phencyclidine Scrn Negative 08/16/21 20:58 Ur Amphetamines Screen Negative 08/16/21 20:58 U Benzodiazepines Scrn Negative 08/16/21 20:58 Urine Cocaine Screen Negative 08/16/21 20:58 U Marijuana (THC) Screen Negative 08/16/21 20:58 Drugs of Abuse Note Disclamer 08/16/21 20:58 Plasma/Serum Alcohol < 0.01 % (0-0.07) 08/16/21 20:06 Blood Type B POSITIVE 08/18/21 20:50 Antibody Screen Negative 08/18/21 20:50 Crossmatch See Detail 08/18/21 20:50 Microbiology: Microbiology 08/16/21 22:38 Peripheral/Venous Blood Culture - Preliminary NO GROWTH AFTER 72 HOURS 08/16/21 22:44 Peripheral/Venous Blood Culture - Preliminary NO GROWTH AFTER 72 HOURS 08/16/21 20:35 Tracheal Aspirate Sputum Culture - Final Pseudomonas Aeruginosa Noriega/IV: Voiding Method Indwelling Catheter Active Medications - Current Medications Current Medications: Generic Name Dose Route Start Last Admin Trade Name Freq PRN Reason Stop Dose Admin Acetaminophen 650 mg 08/16/21 21:28 Acetaminophen 650 Mg Rect Supp CA Q6H PRN Pain MILD(1-3)/Fever >100.5/PÉREZ Dextrose 0 ml 08/16/21 21:28 08/17/21 16:54 Dextrose 50% In Water (25gm) 50 Ml Syringe IV 10 ml Q30MIN PRN Administration Hypoglycemia Protocol Heparin Sodium (Porcine) 5,000 unit 08/16/21 22:00 08/20/21 06:00 Heparin 5,000 Unit/1 Ml Vial SUB-Q Not Given Q8HR [facility] Heparin Sodium (Porcine) 3,000 unit 08/18/21 08:05 08/20/21 15:03 Heparin 10,000 Units/10 Ml Vial IV 3,000 unit TITO PRN Administration hemodialysis Hydralazine HCl 10 mg 08/17/21 04:30 08/17/21 04:44 Hydralazine 20 Mg/1 Ml Inj IV 10 mg Q4HR PRN Administration Hypertension Sodium Chloride 100 mls @ 999 mls/hr 08/18/21 08:05 Nacl 0.9% IV TITO PRN Hypotension Cefepime HCl 2 gm in 100 mls @ 200 mls/hr 08/19/21 10:00 08/20/21 13:53 Cefepime/Ns 2 Gm/100 Ml IV 08/25/21 10:29 Infused Q24H [facility] Infusion Protocol Dextrose 1,000 mls @ 20 mls/hr 08/20/21 16:00 D10w IV 08/21/21 15:59 DIRECT LADAN Insulin Human Lispro 0 unit 08/18/21 12:00 08/20/21 13:53 Insulin Lispro 100 Unit/Ml SUB-Q Not Given Q6HR [facility] Protocol Naloxone HCl 0.4 mg 08/16/21 20:05 08/16/21 18:53 Naloxone 0.4 Mg/1 Ml Inj IV 0.4 mg Q2MIN PRN Administration Res Rate </= 8 or 02 SAT < 92% Ondansetron HCl 4 mg 08/16/21 21:28 Ondansetron 4 Mg/2 Ml Inj IV Q8H PRN Nausea And Vomiting Pantoprazole Sodium 40 mg 08/19/21 10:00 08/20/21 09:41 Pantoprazole 40 Mg Inj IV 40 mg QDAY LADAN Administration Sodium Chloride 10 ml 08/16/21 22:00 08/20/21 09:42 Sodium Chloride 0.9% 10 Ml Flush Syringe IV 10 ml BID LADAN Administration Sodium Chloride 10 ml 08/16/21 21:28 Sodium Chloride 0.9% 10 Ml Flush Syringe IV PRN PRN LINE FLUSH Nutrition/Malnutrition Assess - Dietary Evaluation Nutrition/Malnutrition Findings: Nutrition Notes Start: 08/17/21 1 0:25 Freq: Status: Active Protocol: Document 08/19/21 10:10 GB (Rec: 08/19/21 10:29 GB [id number]) Nutrition Notes Initial or Follow up Assessment Current Diagnosis CKD (stage V CKD),Coronary Artery Disease,Diabetes, Hypertension,Heart Failure, Respiratory Failure Other Pertinent Diagnosis UTI, on HD, encephalopathy, drug OD Current Diet NPO Labs/Tests 08/19: Na 136, BUN 23 (improved ), Creatinine 4 (improved), glucose 172 (fluctuating), Ca 7.1, AlkP 144 Pertinent Medications D5(PRN) Height 5 ft 8 in Weight 91 kg [place] Body Weight (kg) 63.63 BMI 30.4 Weight change and time frame no change reported Weight Status Obese Subjective/Other Information MD consult for diet education. MD notes 08/18: sedations d/c'd , plan once awake extubate, on maintenance HD MWF. Resp Note 08/19: 10am, pt extubated to room air, no noted distress RN note: meal stand by assist Last BM: 08/19 - loose, liquid Percent of energy/protein needs met: 0% per intubation/sedation. Extubated today, diet to start . Burn Absent Trauma Absent GI Symptoms None Food Allergy No Skin Integrity/Comment wounds DM ulcers LLE, RLE Current % PO Other Minimum of two criteria No #2 Nutrition Diagnosis Food and nutrition-related knowledge deficit Etiology HD dependent, DM As Evidenced by Signs and Symptoms MD consult for nutrition education, previously intubated/sedated #1 Nutrition Diagnosis Inadequate oral intake Comments: 08/19: pt extubated 10am, diet to start Etiology drug OD, ARF As Evidenced by Signs and Symptoms pt on vent and unable to consume PO Diagnosis Progress(for reassessment Resolved documentation) Is patient on ventilator? No Is Patient Ambulatory and/or Out of Bed No REE-([facility]-confined to bed) 1768.020 Kcal/Kg value to use for calculation 20 Approximate Energy Requirements Using 1820 kcal/Kg Calculation Used for Recommendations Kcal/kg Additional Notes Protein: 1-1.2g/kg @ 91k- 109g Fluid: 1 ml/kcal or per MD Nutrition Intervention Change Diet Order: Advance to consistent carbohydrate as tolerated Nutrition Support: n/a Add Supplement/Snack (indicate name/kcal n/a /protein ) Education Handouts Provided AND: Food content values for K and P. Goal #1 Diet started and advanced to consistent carbohydrate by f/u . Goal #2 PO intake of meals to be 75% or greater daily for LOS. Goal #3 Nutrition education packet on food content values for K and P reviewed and provided to pt once admitted to floor and/or at f/u. Follow-Up By: 08/21/21 Additional Comments F/U: edu packet of food content values for K and P reviewed and provided to pt, po intake
[2021-08-20] MEDS ORDERED: DEXTROSE 10% IN WATER 1,000 ML IV SCH (16:00)
[2021-08-20 16:24] LABS: Hematocrit 29.4 % (30.3-42.9); Hemoglobin 9.6 gm/dl (10.1-14.3)
[2021-08-20] MEDS: EPOETIN ALFA-EPBX 10,000 UNIT/1 ML VIAL SUB-Q PRN (16:30)
[2021-08-21 05:27] LABS: Hematocrit 26.9 % (30.3-42.9); Hemoglobin 8.7 gm/dl (10.1-14.3); Mean Corpuscular HGB Conc 32 % (30-34); Mean Corpuscular Volume 90 fl (79-97); Platelet Count 347 K/mm3 (140-440)
[2021-08-21 05:36] LABS: Red Cell Distribution Width 20.6 % (13.2-15.2)
[2021-08-21 05:40] LABS: Calcium 8.1 mg/dL (8.4-10.2)
[2021-08-21] MEDS: INSULIN LISPRO 100 UNIT/ML SUB-Q SCH ×3 (07:37→18:00)
[2021-08-21] MEDS: HEPARIN 5,000 UNIT/1 ML VIAL SUB-Q SCH ×3 (07:38→23:02)
[2021-08-21] MEDS: PANTOPRAZOLE 40 MG INJ IV SCH (09:47)
[2021-08-21] MEDS: CEFEPIME/NS 2 GM/100 ML 2 GM/100 ML BAG IV SCH (09:47)
[2021-08-21] MEDS: hydrALAZINE 20 MG/1 ML INJ IV PRN (09:48)
[2021-08-21] MEDS ORDERED: NON-FORMULARY EACH (Furosemide [Lasix Tab] 80 MG Tablet) PO SCH (10:00)
--- NOTE | 2021-08-21 10:17 | Progress Note ---
Assessment and Plan Assessment and Plan - Patient Problems # Encephalopathy on intial presentation was intubated and sedated -08/19 she is extubated not following command -moves all limbs -? Aphasia Vs seizure -NIH#9 today unchanged related to confusion and lack of speech out put. -OnCefepim ? trigger seizure ? diagnosis of exclusion ??? -MRI brain is pending -EEG pending -Possibly secondary to underlying infection. -Urinalysis-reveals UTI. -Patient placed on empiric IV antibiotics and IV fluid. # Diabetes -Patient placed on sliding scale insulin. -We will monitor Accu-Cheks closely.- # HTN (hypertension) -We will resume routine home medications once able to tolerate p.o. oral intake. -Meanwhile we will place on IV hydralazine as needed for blood pressure control # ESRD (end stage renal disease) -We will place consult to nephrology for evaluation and for dialysis during this admission. -BUN/Cr#29/4.8 # Urinary tract infection -Patient commenced on empiric IV antibiotics. # DVT prophylaxis -Patient placed on subcutaneous heparin. # Full code status -Patient is full code. will follow after review MRI brain and EEG Subjective Date of service: 08/21/21 Principal diagnosis: GIB Interval history: alert not follow command at time star at you with possibly attempt to talk !! No focal weakness is appreciated Vital are stable BUN/Cr#16/3.2 MRI brain and EEG are pending Objective - Vital Sign Vital Signs - 12hr 08/20/21 08/21/21 08/21/21 23:00 00:00 01:00 Temperature 98.9 F Pulse Rate 96 H 99 H 98 H Pulse Rate [ 96 H Left Radial] Respiratory 15 11 L 14 Rate Blood Pressure 178/67 171/69 175/68 O2 Sat by Pulse 99 99 99 Oximetry 08/21/21 08/21/21 08/21/21 02:00 03:00 04:00 Temperature 99.5 F Pulse Rate 100 H 96 H 100 H Pulse Rate [ 97 H Left Radial] Respiratory 18 14 14 Rate Blood Pressure 185/68 171/70 169/74 O2 Sat by Pulse 99 99 99 Oximetry 08/21/21 08/21/21 08/21/21 05:00 06:00 07:00 Temperature Pulse Rate 94 H 100 H 95 H Pulse Rate [ Left Radial] Respiratory 17 18 11 L Rate Blood Pressure 169/64 189/73 175/67 O2 Sat by Pulse 99 99 99 Oximetry 08/21/21 08/21/21 08/21/21 07:23 08:00 09:48 Temperature 98.3 F 98.3 F Pulse Rate 91 H Pulse Rate [ 96 H Left Radial] Respiratory 14 Rate Blood Pressure 167/70 O2 Sat by Pulse 98 Oximetry - General Apperance Constitutional: comfortable - EENT EENT: PERRL, mucous membranes moist - Respiratory Respiratory: chest non-tender, lungs clear, rhonchi - Cardiovascular Cardiovascular: regular rate, normal S1, normal S2 Extremities: no peripheral edema bilat, no clubbing, cyanosis - Gastrointestinal Gastrointestinal: normoactive bowel sounds - Integumentary Integumentary: normal - Neurologic Cranial nerve examination: PERRL, EOMI, intact Speech examination: other (no speech out put ) Detailed motor examination: grossly full strength in - Laboratory Findings CBC and BMP: 08/21/21 04:36 08/21/21 04:36 Abnormal Lab Findings: Abnormal Labs 08/16/21 08/16/21 08/16/21 08:00 20:06 20:06 WBC RBC 3.24 L Hgb Hct MCV 98 H RDW 17.8 H [place] % (Auto) [place] # (Auto) Seg Neutrophils % ABG pH POC ABG pCO2 POC ABG pO2 ABG pO2 ABG O2 Saturation ABG Hemoglobin ABG Oxyhemoglobin ABG Sodium ABG Glucose Oxyhemoglobin Carboxyhemoglobin Sodium Chloride Carbon Dioxide BUN 35 H Creatinine 6.1 H Glucose 175 H POC Glucose Calcium Magnesium Alkaline Phosphatase Total Protein Albumin Arterial Blood Glucose Urine Blood Moderate A Urine WBC (Auto) > 182.0 H U Epithel Cells (Auto) 32.0 H Crossmatch 08/16/21 08/17/21 08/17/21 20:35 03:08 04:41 WBC RBC 2.89 L Hgb 8.9 L Hct 28.3 L MCV 98 H RDW 17.5 H [place] % (Auto) 8.3 H [place] # (Auto) 0.9 H Seg Neutrophils % 71.2 H ABG pH 7.534 H 7.525 H POC ABG pCO2 POC ABG pO2 ABG pO2 248.5 H 45.2 L ABG O2 Saturation 99.4 H 81.2 L ABG Hemoglobin 10.1 L 8.8 L ABG Oxyhemoglobin ABG Sodium ABG Glucose Oxyhemoglobin 79.6 L Carboxyhemoglobin Sodium Chloride Carbon Dioxide BUN Creatinine Glucose POC Glucose Calcium Magnesium Alkaline Phosphatase Total Protein Albumin Arterial Blood Glucose Urine Blood Urine WBC (Auto) U Epithel Cells (Auto) Crossmatch 08/17/21 08/17/21 08/17/21 04:41 04:56 07:50 WBC RBC Hgb Hct MCV RDW [place] % (Auto) [place] # (Auto) Seg Neutrophils % ABG pH 7.505 H POC ABG pCO2 28.4 L POC ABG pO2 184.8 H ABG pO2 ABG O2 Saturation ABG Hemoglobin 10.0 L ABG Oxyhemoglobin 99.0 H ABG Sodium 135.0 L ABG Glucose 142 H Oxyhemoglobin Carboxyhemoglobin 0.3 L Sodium Chloride Carbon Dioxide 21 L BUN 39 H Creatinine 6.1 H Glucose 147 H POC Glucose 152 H Calcium 7.8 L Magnesium Alkaline Phosphatase Total Protein Albumin Arterial Blood Glucose 142 H Urine Blood Urine WBC (Auto) U Epithel Cells (Auto) Crossmatch 08/17/21 08/18/21 08/18/21 11:47 04:15 04:15 WBC RBC Hgb 9.3 L Hct 29.4 L MCV RDW [place] % (Auto) [place] # (Auto) Seg Neutrophils % ABG pH POC ABG pCO2 POC ABG pO2 ABG pO2 ABG O2 Saturation ABG Hemoglobin ABG Oxyhemoglobin ABG Sodium ABG Glucose Oxyhemoglobin Carboxyhemoglobin Sodium Chloride Carbon Dioxide 17 L BUN 40 H Creatinine 6.0 H Glucose POC Glucose 108 H Calcium 7.9 L Magnesium Alkaline Phosphatase 144 H Total Protein 6.1 L Albumin 1.6 L Arterial Blood Glucose Urine Blood Urine WBC (Auto) U Epithel Cells (Auto) Crossmatch 08/18/21 08/18/21 08/18/21 04:30 20:42 20:49 WBC RBC Hgb 6.9 L Hct 21.5 L D MCV RDW [place] % (Auto) [place] # (Auto) Seg Neutrophils % ABG pH POC ABG pCO2 POC ABG pO2 124.7 H ABG pO2 ABG O2 Saturation ABG Hemoglobin 10.1 L ABG Oxyhemoglobin 98.1 H ABG Sodium 135.5 L ABG Glucose Oxyhemoglobin Carboxyhemoglobin 0 L Sodium Chloride Carbon Dioxide BUN Creatinine Glucose POC Glucose 133 H Calcium Magnesium Alkaline Phosphatase Total Protein Albumin Arterial Blood Glucose Urine Blood Urine WBC (Auto) U Epithel Cells (Auto) Crossmatch 08/18/21 08/19/21 08/19/21 20:50 05:38 08:06 WBC 21.3 H RBC 2.55 L Hgb 7.5 L Hct 23.4 L MCV RDW 22.1 H [place] % (Auto) [place] # (Auto) Seg Neutrophils % ABG pH POC ABG pCO2 POC ABG pO2 ABG pO2 ABG O2 Saturation ABG Hemoglobin ABG Oxyhemoglobin ABG Sodium ABG Glucose Oxyhemoglobin Carboxyhemoglobin Sodium Chloride Carbon Dioxide BUN Creatinine Glucose POC Glucose 147 H Calcium Magnesium Alkaline Phosphatase Total Protein Albumin Arterial Blood Glucose Urine Blood Urine WBC (Auto) U Epithel Cells (Auto) Crossmatch See Detail 08/19/21 08/19/21 08/19/21 08:06 11:09 17:25 WBC RBC Hgb Hct MCV RDW [place] % (Auto) [place] # (Auto) Seg Neutrophils % ABG pH POC ABG pCO2 POC ABG pO2 ABG pO2 ABG O2 Saturation ABG Hemoglobin ABG Oxyhemoglobin ABG Sodium ABG Glucose Oxyhemoglobin Carboxyhemoglobin Sodium 136 L Chloride 97.8 L Carbon Dioxide 19 L BUN 23 H Creatinine 4.0 H Glucose 172 H POC Glucose 165 H 115 H Calcium 7.1 L Magnesium Alkaline Phosphatase Total Protein Albumin Arterial Blood Glucose Urine Blood Urine WBC (Auto) U Epithel Cells (Auto) Crossmatch 08/19/21 08/19/21 08/20/21 22:25 23:38 05:16 WBC 14.0 H RBC 2.78 L Hgb 8.7 L 8.4 L Hct 27.5 L 24.8 L MCV RDW 19.8 H [place] % (Auto) [place] # (Auto) Seg Neutrophils % ABG pH POC ABG pCO2 POC ABG pO2 ABG pO2 ABG O2 Saturation ABG Hemoglobin ABG Oxyhemoglobin ABG Sodium ABG Glucose Oxyhemoglobin Carboxyhemoglobin Sodium Chloride Carbon Dioxide BUN Creatinine Glucose POC Glucose 117 H Calcium Magnesium Alkaline Phosphatase Total Protein Albumin Arterial Blood Glucose Urine Blood Urine WBC (Auto) U Epithel Cells (Auto) Crossmatch 08/20/21 08/20/21 08/20/21 05:16 05:30 08:32 WBC RBC Hgb 9.2 L Hct 28.7 L MCV RDW [place] % (Auto) [place] # (Auto) Seg Neutrophils % ABG pH POC ABG pCO2 POC ABG pO2 ABG pO2 ABG O2 Saturation ABG Hemoglobin ABG Oxyhemoglobin ABG Sodium ABG Glucose Oxyhemoglobin Carboxyhemoglobin Sodium Chloride Carbon Dioxide 21 L BUN 29 H Creatinine 4.8 H Glucose 125 H POC Glucose 118 H Calcium 7.6 L Magnesium 1.50 L Alkaline Phosphatase Total Protein Albumin Arterial Blood Glucose Urine Blood Urine WBC (Auto) U Epithel Cells (Auto) Crossmatch 08/20/21 08/20/21 08/20/21 12:10 16:17 17:59 WBC RBC Hgb 9.6 L Hct 29.4 L MCV RDW [place] % (Auto) [place] # (Auto) Seg Neutrophils % ABG pH POC ABG pCO2 POC ABG pO2 ABG pO2 ABG O2 Saturation ABG Hemoglobin ABG Oxyhemoglobin ABG Sodium ABG Glucose Oxyhemoglobin Carboxyhemoglobin Sodium Chloride Carbon Dioxide BUN Creatinine Glucose POC Glucose 141 H 138 H Calcium Magnesium Alkaline Phosphatase Total Protein Albumin Arterial Blood Glucose Urine Blood Urine WBC (Auto) U Epithel Cells (Auto) Crossmatch 08/21/21 08/21/21 08/21/21 00:01 04:36 04:36 WBC RBC 3.00 L Hgb 8.7 L Hct 26.9 L MCV RDW 20.6 H [place] % (Auto) [place] # (Auto) Seg Neutrophils % ABG pH POC ABG pCO2 POC ABG pO2 ABG pO2 ABG O2 Saturation ABG Hemoglobin ABG Oxyhemoglobin ABG Sodium ABG Glucose Oxyhemoglobin Carboxyhemoglobin Sodium Chloride Carbon Dioxide 21 L BUN Creatinine 3.2 H Glucose 152 H POC Glucose 144 H Calcium 8.1 L Magnesium Alkaline Phosphatase Total Protein Albumin Arterial Blood Glucose Urine Blood Urine WBC (Auto) U Epithel Cells (Auto) Crossmatch 08/21/21 06:44 WBC RBC Hgb Hct MCV RDW [place] % (Auto) [place] # (Auto) Seg Neutrophils % ABG pH POC ABG pCO2 POC ABG pO2 ABG pO2 ABG O2 Saturation ABG Hemoglobin ABG Oxyhemoglobin ABG Sodium ABG Glucose Oxyhemoglobin Carboxyhemoglobin Sodium Chloride Carbon Dioxide BUN Creatinine Glucose POC Glucose 136 H Calcium Magnesium Alkaline Phosphatase Total Protein Albumin Arterial Blood Glucose Urine Blood Urine WBC (Auto) U Epithel Cells (Auto) Crossmatch
--- NOTE | 2021-08-21 10:42 | Gastroenterology Progress Note ---
Assessment and Plan - Patient Problems (1) Hematochezia Current Visit: Yes Status: Acute Plan to address problem: - The most likely diagnosis, based on her past medical history, is mild colon ischemia. Since she has no severe abdominal pain, fevers, or markedly elevated WBC, we will monitor conservatively for now. - OK to given necessary anticoagulation (heparin in HD, cardiac ASA) but would avoid NSAIDs. - HD due today and will consider EGD/colonoscopy based on her mental status after HD as currently would not be able to drink prep (using NG tube for meds; failed ST eval). Subjective Date of service: 08/21/21 Principal diagnosis: GIB Interval history: The patient is still confused, but follows some commands. No reported blood with BM last night. Denies abdominal pain and no witnessed N/V. Objective - Constitutional Vitals: Temp Pulse Resp BP Pulse Ox 98.3 F 91 H 14 167/70 98 08/21/21 08:00 08/21/21 09:48 08/21/21 08:00 08/21/21 09:48 08/21/21 08:00 General appearance: no acute distress - Respiratory Respiratory effort: normal Respiratory: bilateral: CTA - Cardiovascular Rhythm: regular Heart Sounds: Present: S1 & S2 - Gastrointestinal General gastrointestinal: Present: soft, non-tender, non-distended - Labs CBC & Chem 7: 08/21/21 04:36 08/21/21 04:36 Labs: Laboratory Results - last 24 hr 08/20/21 08/20/21 08/20/21 03:50 12:10 16:17 WBC RBC Hgb 9.6 L Hct 29.4 L MCV MCH MCHC RDW Plt Count Sodium Potassium Chloride Carbon Dioxide Anion Gap BUN Creatinine Estimated GFR BUN/Creatinine Ratio Glucose POC Glucose 141 H Calcium Phosphorus Magnesium Nasal Screen MRSA (PCR) Negative 08/20/21 08/21/21 08/21/21 17:59 00:01 04:36 WBC 10.6 RBC 3.00 L Hgb 8.7 L Hct 26.9 L MCV 90 MCH 29 MCHC 32 RDW 20.6 H Plt Count 347 Sodium Potassium Chloride Carbon Dioxide Anion Gap BUN Creatinine Estimated GFR BUN/Creatinine Ratio Glucose POC Glucose 138 H 144 H Calcium Phosphorus Magnesium Nasal Screen MRSA (PCR) 08/21/21 08/21/21 04:36 06:44 WBC RBC Hgb Hct MCV MCH MCHC RDW Plt Count Sodium 140 Potassium 3.6 Chloride 99.8 Carbon Dioxide 21 L Anion Gap 23 BUN 16 Creatinine 3.2 H Estimated GFR 14 BUN/Creatinine Ratio 5 Glucose 152 H POC Glucose 136 H Calcium 8.1 L Phosphorus 3.30 Magnesium 2.00 Nasal Screen MRSA (PCR)
--- NOTE | 2021-08-21 10:59 | Progress Note ---
Assessment and Plan 1. ESRD: Patient is on maintenance HD, MWF schedule. Patient was switched to hemodialysis about 2 months ago 2/2 calciphylaxis. Meds dosage based on GFR. Last outpatient HD ?08/15. Hemodialysis: 08/18, 08/20. 2. FEN: Mild anion-gap metabolic acidosis, on HD. Monitor lytes and volume status. 3. Acute metabolic encephalopathy, POA: ?2/[address] head negative. Monitor. 4. H/o CAD s/p stent. Echo; EF 60%, LVH. 5. Anemia: Epogen with HD. 6. HTN: Monitor BP. 7. Type 2 DM. Subjective: Patient was seen and examined at the bedside. Examination: General appearance: well-developed, well-nourished, appears stated age HEENT: ATNC, pupils equal Neck: trachea midline Respiratory: Clear to Auscultation Cardiology: regular, S1S2, no murmur Gastrointestinal: normoactive bowel sounds, not tender, PD catheter noted Integumentary: b/l LE dressing noted Neurologic: lethargic, non-verbal Ext: no edema : Noriega catheter Hemodialysis access: R IJ tunnel catheter Subjective Date of service: 08/21/21 Principal diagnosis: GIB Objective - Vital Signs Vital signs: Vital Signs - 12hr 08/20/21 08/21/21 08/21/21 23:00 00:00 01:00 Temperature 98.9 F Pulse Rate 96 H 99 H 98 H Pulse Rate [ 96 H Left Radial] Respiratory 15 11 L 14 Rate Blood Pressure 178/67 171/69 175/68 O2 Sat by Pulse 99 99 99 Oximetry 08/21/21 08/21/21 08/21/21 02:00 03:00 04:00 Temperature 99.5 F Pulse Rate 100 H 96 H 100 H Pulse Rate [ 97 H Left Radial] Respiratory 18 14 14 Rate Blood Pressure 185/68 171/70 169/74 O2 Sat by Pulse 99 99 99 Oximetry 08/21/21 08/21/21 08/21/21 05:00 06:00 07:00 Temperature Pulse Rate 94 H 100 H 95 H Pulse Rate [ Left Radial] Respiratory 17 18 11 L Rate Blood Pressure 169/64 189/73 175/67 O2 Sat by Pulse 99 99 99 Oximetry 08/21/21 08/21/21 08/21/21 07:23 08:00 09:48 Temperature 98.3 F 98.3 F Pulse Rate 91 H Pulse Rate [ 96 H Left Radial] Respiratory 14 Rate Blood Pressure 167/70 O2 Sat by Pulse 98 Oximetry - Lab 08/22/21 06:05 08/22/21 06:05 Most recent lab results ABG pH 7.373 (7.320-7.450) 08/18/21 04:30 ABG pCO2 28.7 mm Hg 08/17/21 03:08 ABG pO2 45.2 mm Hg (80.0-90.0) L 08/17/21 03:08 ABG HCO3 23.2 mmol/L (20.0-26.0) 08/17/21 03:08 ABG O2 Saturation 98.4 (0-100) 08/18/21 04:30 Calcium 8.1 mg/dL (8.4-10.2) L 08/21/21 04:36 Phosphorus 3.30 mg/dL (2.5-4.5) 08/21/21 04:36 Magnesium 2.00 mg/dL (1.7-2.3) 08/21/21 04:36 Medications & Allergies - Medications Allergies/Adverse Reactions: Allergies Penicillins Allergy (Unknown, Verified 08/11/21 17:39) Itching Home Medications: Home Medications Medication Instructions Recorded Confirmed Last Taken Type Albuterol Sulfate [Ventolin Hfa] 2 puff IH Q6H PRN 08/30/18 08/18/21 10/08/18 History Insulin Lispro [HumaLOG VIAL] 0 units SQ AC #1 vial 10/06/18 08/18/21 08/16/21 Rx Cinacalcet [Sensipar] 30 mg PO QDAY 08/08/21 08/18/21 Unknown History Furosemide [Lasix TAB] 80 mg PO QDAY 08/08/21 08/18/21 Unknown History Metoprolol Succinate [Toprol Xl] 25 mg PO DAILY 08/08/21 08/18/21 Unknown History Nortriptyline [Pamelor] 25 mg PO DAILY 08/08/21 08/18/21 Unknown History calcitrioL [Rocaltrol] 0.5 mcg PO QDAY 08/08/21 08/18/21 Unknown History metOLazone [Zaroxolyn] 5 mg PO QDAY 08/08/21 08/18/21 Unknown History Aspirin [Aspirin BABY CHEW TAB] 81 mg PO QDAY 30 Days #30 tab.chew 08/14/21 08/18/21 Unknown Rx AtorvaSTATin [Lipitor] 40 mg PO QHS #90 tablet 08/14/21 08/18/21 Unknown Rx Clopidogrel [Plavix] 75 mg PO QDAY 30 Days #30 tablet 08/14/21 08/18/21 Unknown Rx Hydralazine HCl 50 mg PO BID 30 Days #30 tab 08/14/21 08/18/21 Unknown Rx amLODIPine 5 mg PO QDAY 30 Days #30 tablet 08/14/21 08/18/21 Unknown Rx Active Medications: Generic Name Dose Route Start Last Admin Trade Name Freq PRN Reason Stop Dose Admin Acetaminophen 650 mg 08/16/21 21:28 Acetaminophen 650 Mg Rect Supp IA Q6H PRN Pain MILD(1-3)/Fever >100.5/PÉREZ Amlodipine Besylate 5 mg 08/21/21 12:00 Amlodipine 5 Mg Tab PO QDAY [facility] Atorvastatin Calcium 40 mg 08/21/21 22:00 Atorvastatin 40 Mg Tab PO QHS [facility] Dextrose 0 ml 08/16/21 21:28 08/17/21 16:54 Dextrose 50% In Water (25gm) 50 Ml Syringe IV 10 ml Q30MIN PRN Administration Hypoglycemia Protocol Furosemide 80 mg 08/21/21 12:00 Furosemide 40 Mg Tab PO QDAY [facility] Heparin Sodium (Porcine) 5,000 unit 08/16/21 22:00 08/21/21 07:38 Heparin 5,000 Unit/1 Ml Vial SUB-Q Not Given Q8HR [facility] Heparin Sodium (Porcine) 3,000 unit 08/18/21 08:05 08/20/21 15:03 Heparin 10,000 Units/10 Ml Vial IV 3,000 unit TITO PRN Administration hemodialysis Hydralazine HCl 10 mg 08/17/21 04:30 08/21/21 09:48 Hydralazine 20 Mg/1 Ml Inj IV 10 mg Q4HR PRN Administration Hypertension Sodium Chloride 100 mls @ 999 mls/hr 08/18/21 08:05 Nacl 0.9% IV TITO PRN Hypotension Cefepime HCl 2 gm in 100 mls @ 200 mls/hr 08/19/21 10:00 08/21/21 09:47 Cefepime/Ns 2 Gm/100 Ml IV 08/25/21 10:29 200 mls/hr Q24H [facility] Administration Protocol Dextrose 1,000 mls @ 20 mls/hr 08/20/21 16:00 D10w IV 08/21/21 15:59 DIRECT [facility] Insulin Human Lispro 0 unit 08/18/21 12:00 08/21/21 07:37 Insulin Lispro 100 Unit/Ml SUB-Q Not Given Q6HR [facility] Protocol Metoprolol Succinate 25 mg 08/21/21 12:00 Metoprolol Succinate Xl 25 Mg Tab PO DAILY [facility] Naloxone HCl 0.4 mg 08/16/21 20:05 08/16/21 18:53 Naloxone 0.4 Mg/1 Ml Inj IV 0.4 mg Q2MIN PRN Administration Res Rate </= 8 or 02 SAT < 92% Ondansetron HCl 4 mg 08/16/21 21:28 Ondansetron 4 Mg/2 Ml Inj IV Q8H PRN Nausea And Vomiting Pantoprazole Sodium 40 mg 08/19/21 10:00 08/21/21 09:47 Pantoprazole 40 Mg Inj IV 40 mg QDAY [facility] Administration Pneumococcal Polyvalent Vaccine 0.5 ml 08/21/21 12:00 Pneumococcal 23 Valent 0.5 Ml Vial IM 08/21/21 12:01 .ONCE ONE Sodium Chloride 10 ml 08/16/21 22:00 08/21/21 09:48 Sodium Chloride 0.9% 10 Ml Flush Syringe IV 10 ml BID LADAN Administration Sodium Chloride 10 ml 08/16/21 21:28 Sodium Chloride 0.9% 10 Ml Flush Syringe IV PRN PRN LINE FLUSH
[2021-08-21] MEDS ORDERED: SIMPLE SYRUP 15 ML FEEDTUBE PRN ×2 (11:52)
[2021-08-21] MEDS ORDERED: LIPASE 10,500/PROTEASE 25,000/AMYLASE 43,750 (UNITS) DR CAP FEEDTUBE PRN (11:52)
[2021-08-21] MEDS ORDERED: SODIUM BICARBONATE 325 MG TAB FEEDTUBE PRN (11:52)
[2021-08-21] MEDS ORDERED: FLU VACC QUAD 2021-22(6MOS UP)/PF 60 MCG/0.5 ML SYRINGE IM ONE (12:00)
[2021-08-21] MEDS ORDERED: METOPROLOL SUCCINATE XL 25 MG TAB PO SCH (12:00)
[2021-08-21] MEDS ORDERED: PNEUMOCOCCAL 23 Valent 0.5 ML VIAL IM ONE (12:00)
--- NOTE | 2021-08-21 12:57 | XRay Report ---
CHEST/ABDOMEN 08/21/2021 12:44 PM INDICATION / CLINICAL INFORMATION: Dobbhoff placement. COMPARISON: 08/16/21. FINDINGS: TUBES / LINES: The nasogastric tube has been removed. There is a new feeding tube doubled back on its elf in the mid stomach with the tip overlying the gastric fundus. The position of the right jugular p ermacath has not changed. BOWEL GAS PATTERN: No significant abnormality. FREE AIR / EXTRALUMINAL GAS: None. ADDITIONAL FINDINGS: The visualized lungs are clear. IMPRESSION: Feeding tube tip overlies the gastric fundus. Signer Name: Matty Hagan MD Signed: 08/21/2021 12:53 PM Workstation Name: [id number]
[2021-08-21] MEDS: amLODIPine 5 MG TAB PO SCH (12:59)
[2021-08-21] MEDS: FUROSEMIDE 40 MG TAB PO SCH (13:01)
[2021-08-21] MEDS: METOPROLOL TARTRATE 25 MG TAB PO SCH ×2 (13:03→23:08)
--- NOTE | 2021-08-21 15:30 | Magnetic Resonance Report ---
MR brain wo con INDICATION / CLINICAL INFORMATION: 70 years Female; ams, CONFUSION NG TUBE WIRE ARTIFACT, PATIENT MOTION, BEST POSSIBLE EXAM.. TECHNIQUE: Multiplanar, multisequence MR images of the brain were obtained. COMPARISON: The study is compared to previous MRI of 08/11/2021. FINDINGS: BRAIN / INTRACRANIAL CONTENTS: The motion and susceptibility artifact grade the image quality. Howeve r, there continued scattered small hyperintense foci involving cerebral white matter most consistent with microvascular angiopathy. The artifact particularly degrades the diffusion imaging, particularly along the anterior frontal and temporal regions. However, there is no clear evidence of acute territ orial infarct involving the visualized segments. The ventricular system remains appropriate in size and configuration. No developing extra-axial fluid collections or significant mass effect is identified. CRANIOCERVICAL JUNCTION: No significant abnormality. VASCULAR FLOW-VOIDS: No significant abnormality. ORBITS: No significant abnormality of visualized orbits. SINUSES / MASTOIDS: There are persistent bilateral mastoid effusions with presence of nasogastric tub e. The visualized paranasal sinuses appear pneumatized. ADDITIONAL FINDINGS: None. IMPRESSION: 1. There is continued mild microvascular angiopathy without evidence of recent territorial infarct. 2. There are persistent effusions within the mastoid air cells bilaterally. Signer Name: Ismael Reyes MD Signed: 08/21/2021 3:26 PM Workstation Name: [id number]
--- NOTE | 2021-08-21 16:47 | Progress Note ---
Assessment and Plan Assessment and plan: This is a 70-year-old female with HTN, CAD s/p stent, DM, ESRD on HD, calciphylaxis admitted with acute hypoxic respiratory failure, UTI Neuro: Metabolic versus toxic encephalopathy -CT head with no acute findings -Avoid delirium -Reorientation as needed -Maintain sleep-wake cycle -Neurology consulted, appreciate recommendations -MRI brain shows no recent territorial infarct -EEG pending Cardio: h/o HTN, CAD s/p stent -resume home hypertensive regimen and adjust as needed -Blood pressure monitor per protocol -As needed hydralazine -Resume home Lipitor -Hold home aspirin, Plavix Respiratory: Acute hypoxic respiratory failure -Patient was intubated 08/16 and extubated on 08/19 -Patient is currently on room air -Pulmonary hygiene -Supplemental oxygen as needed -SPO2 monitoring GI: Hematochezia -GI consulted, appreciate recommendations -Protonix IV -NG tube placed today -Nutrition consulted -Tube feedings started -24-hour -45 -Hold as needed at this time given GI bleed : ESRD on HD, calciphylaxis, hyponatremia, hypochloremia, metabolic acidosis -Nephrology consulted, appreciate recommendations -HD per nephrology -Renally dose medications -Strict intake and output -Daily weights -Trend BMP ID: E. coli and Klebsiella pneumonia UTI, tracheal aspirate with Pseudomonas aeruginosa -Patient is on cefepime -Trend fever and WBC curve Heme: Anemia of chronic disease, GI bleed -S/p 2 units PRBC -Transfuse for less than 7 hemoglobin -Trend CBC -Epogen per nephrology -H/H every 6 Endo: h/o DM -Accu-Cheks every 6 -SSI as needed -Avoid hypoglycemia The high probability of a clinically significant, sudden or life threatening deterioration of the [renal, neuro] system(s) required my full and direct attention, intervention and personal management. The aggregate critical care time was [60] minutes. This time is in addition to time spent performing reported procedures but includes the following: [x] Data Review and interpretation [x] Patient assessment and monitoring of vital signs [x] Documentation [x] Medication orders and management Disposition Plan: transfer to floor Total Time Spent with Patient (Minutes): 60 History Interval history: This is a 70-year-old female with HTN, DM, ESRD on HD, calciphylaxis who presented to the emergency department on 08/16 with altered mental status and decreased responsiveness. Patient was recently admitted to the hospital after possible overdose on Dilaudid after vascular surgery for varicose veins on a Narcan drip. Upon arrival to the emergency department patient was given Narcan without significant improvement and had hypoglycemia into the 200s on initial presentation. Patient was obtunded and subsequently intubated to protect her airway. Work-up in the emergency department included a CXR and CT scan of the head which were unremarkable. Urinalysis revealed UTI patient was started on empiric antibiotics. Patient was admitted to the hospitalist service with consults to nephrology and CCM. 08/17/21: Pt intubated, CC and nephro consulted, follow cx, cont abx, gurded prognosis 08/18/21: s/p HD today, plan to d/c all sedation and to monitor mental status, follow am lab. s/p one unit PRBC today 08/19/21: Patient was extubated today, urine culture resulted with E. coli and Klebsiella pneumoniae, trach aspirate with Pseudomonas aeruginosa however all are sensitive to cefepime which the patient is already on. 08/20: Neurology consulted, MRI brain and EEG pending, patient will be transferred out of the unit with remote telemetry as her H&H is stable. GI may scope the patient after another dialysis session if improvement with mentation. Patient failed speech evaluation and will be started on D10 while n.p.o. 08/21: Patient received MRI brain which showed microvascular angiopathy without evidence of recent territorial infarct. Patient in the ED today. Dobbhoff placed and nutrition consulted for tube feedings. Patient received hemodialysis today. Hospitalist Physical - Constitutional Vitals: Temp Pulse Resp BP Pulse Ox 98.5 F 100 H 15 145/60 99 08/21/21 12:03 08/21/21 13:31 08/21/21 13:31 08/21/21 13:31 08/21/21 13:31 General appearance: Present: well-nourished - EENT Eyes: Present: PERRL, EOM intact ENT: dentition normal - Neck Neck: Present: normal ROM - Respiratory Respiratory effort: normal Respiratory: bilateral: CTA - Cardiovascular Rhythm: regular Heart Sounds: Present: S1 & S2. Absent: systolic murmur, diastolic murmur - Extremities Extremities: no ischemia, pulses intact, pulses symmetrical, No edema, normal temperature, normal color Peripheral Pulses: within normal limits - Abdominal General gastrointestinal: soft, non-tender, non-distended, normal bowel sounds - Integumentary Integumentary: Present: warm, dry - Psychiatric Psychiatric: cooperative - Neurologic Neurologic: other (follow commands, track/focus, left facial droop unchanged from prior, possible expressive aphasia) - Allied Health Allied health notes reviewed: nursing, RT, social work Results - Labs CBC & Chem 7: 08/21/21 04:36 08/21/21 04:36 Labs: Laboratory Last Values WBC 10.6 K/mm3 (4.5-11.0) 08/21/21 04:36 RBC 3.00 M/mm3 (3.65-5.03) L 08/21/21 04:36 Hgb 8.7 gm/dl (10.1-14.3) L 08/21/21 04:36 Hct 26.9 % (30.3-42.9) L 08/21/21 04:36 MCV 90 fl (79-97) 08/21/21 04:36 MCH 29 pg (28-32) 08/21/21 04:36 MCHC 32 % (30-34) 08/21/21 04:36 RDW 20.6 % (13.2-15.2) H 08/21/21 04:36 Plt Count 347 K/mm3 (140-440) 08/21/21 04:36 Lymph % (Auto) 17.4 % (13.4-35.0) 08/17/21 04:41 [place] % (Auto) 8.3 % (0.0-7.3) H 08/17/21 04:41 Eos % (Auto) 2.6 % (0.0-4.3) 08/17/21 04:41 Baso % (Auto) 0.5 % (0.0-1.8) 08/17/21 04:41 Lymph # (Auto) 1.9 K/mm3 (1.2-5.4) 08/17/21 04:41 [place] # (Auto) 0.9 K/mm3 (0.0-0.8) H 08/17/21 04:41 Eos # (Auto) 0.3 K/mm3 (0.0-0.4) 08/17/21 04:41 Baso # (Auto) 0.1 K/mm3 (0.0-0.1) 08/17/21 04:41 Seg Neutrophils % 71.2 % (40.0-70.0) H 08/17/21 04:41 Seg Neutrophils # 7.6 K/mm3 (1.8-7.7) 08/17/21 04:41 PT 13.9 Sec. (12.2-14.9) 08/17/21 04:41 INR 0.96 (0.87-1.13) 08/17/21 04:41 ABG pH 7.373 (7.320-7.450) 08/18/21 04:30 POC ABG pCO2 33.4 mmHg (32.0-48.0) 08/18/21 04:30 ABG pCO2 28.7 mm Hg 08/17/21 03:08 POC ABG pO2 124.7 mmHg (83-108) H 08/18/21 04:30 ABG pO2 45.2 mm Hg (80.0-90.0) L 08/17/21 03:08 POC ABG HCO3 19.0 08/18/21 04:30 ABG HCO3 23.2 mmol/L (20.0-26.0) 08/17/21 03:08 ABG O2 Saturation 98.4 (0-100) 08/18/21 04:30 ABG O2 Content 9.8 (0.0-44) 08/17/21 03:08 POC ABG Base Excess -5.5 08/18/21 04:30 ABG Base Excess 0.8 mmol/L (-2.0-3.0) 08/17/21 03:08 ABG Hemoglobin 10.1 (12.0-17.5) L 08/18/21 04:30 ABG Oxyhemoglobin 98.1 (94-98) H 08/18/21 04:30 ABG Carboxyhemoglobin 1.5 % (0.0-5.0) 08/17/21 03:08 ABG Methemoglobin 0.3 (0.0-1.5) 08/18/21 04:30 ABG Sodium 135.5 mmol/L (136.0-145.0) L 08/18/21 04:30 ABG Potassium 4.0 mmol/L (3.40-4.50) 08/18/21 04:30 ABG Chloride 106.0 mmol/L (98-107) 08/18/21 04:30 ABG Glucose 80 mg/dL (65-95) 08/18/21 04:30 Oxyhemoglobin 79.6 % (95.0-99.0) L 08/17/21 03:08 Carboxyhemoglobin 0 (0.5-1.5) L 08/18/21 04:30 FiO2 45 % 08/17/21 03:08 FiO2 % 30.0 08/18/21 04:30 Sodium 140 mmol/L (137-145) 08/21/21 04:36 Potassium 3.6 mmol/L (3.6-5.0) 08/21/21 04:36 Chloride 99.8 mmol/L (98-107) 08/21/21 04:36 Carbon Dioxide 21 mmol/L (22-30) L 08/21/21 04:36 Anion Gap 23 mmol/L 08/21/21 04:36 BUN 16 mg/dL (7-17) 08/21/21 04:36 Creatinine 3.2 mg/dL (0.6-1.2) H 08/21/21 04:36 Estimated GFR 14 ml/min 08/21/21 04:36 BUN/Creatinine Ratio 5 % 08/21/21 04:36 Glucose 152 mg/dL (65-100) H 08/21/21 04:36 POC Glucose 144 mg/dL (70-105) H 08/21/21 11:36 Lactic Acid 1.00 mmol/L (0.7-2.0) 08/16/21 22:44 Calcium 8.1 mg/dL (8.4-10.2) L 08/21/21 04:36 Phosphorus 3.30 mg/dL (2.5-4.5) 08/21/21 04:36 Magnesium 2.00 mg/dL (1.7-2.3) 08/21/21 04:36 Total Bilirubin 0.20 mg/dL (0.1-1.2) 08/18/21 04:15 AST 23 units/L (5-40) 08/18/21 04:15 ALT 11 units/L (7-56) 08/18/21 04:15 Alkaline Phosphatase 144 units/L (35-129) H 08/18/21 04:15 Total Protein 6.1 g/dL (6.3-8.2) L 08/18/21 04:15 Albumin 1.6 g/dL (3.9-5) L 08/18/21 04:15 Albumin/Globulin Ratio 0.4 % 08/18/21 04:15 Arterial Blood Glucose 80 mg/dL (65-95) 08/18/21 04:30 Urine Color Yellow (Yellow) 08/16/21 08:00 Urine Turbidity Turbid (Clear) 08/16/21 08:00 Urine pH 6.0 (5.0-7.0) 08/16/21 08:00 Ur Specific [place] 1.010 (1.003-1.030) 08/16/21 08:00 Urine Protein >500 mg/dL (Negative) 08/16/21 08:00 Urine Glucose (UA) Negative mg/dL (Negative) 08/16/21 08:00 Urine Ketones Negative mg/dL (Negative) 08/16/21 08:00 Urine Blood Moderate (Negative) A 08/16/21 08:00 Urine Nitrite Negative (Negative) 08/16/21 08:00 Ur Reducing Substances Not Reportable 08/16/21 08:00 Urine Bilirubin Negative (Negative) 08/16/21 08:00 Urine Ictotest Not Reportable 08/16/21 08:00 Urine Urobilinogen < 2.0 mg/dL (<2.0) 08/16/21 08:00 Ur Leukocyte Esterase Large (Negative) 08/16/21 08:00 Urine WBC (Auto) > 182.0 /HPF (0.0-6.0) H 08/16/21 08:00 Urine RBC (Auto) 17.0 /HPF (0.0-6.0) 08/16/21 08:00 U Epithel Cells (Auto) 32.0 /HPF (0-13.0) H 08/16/21 08:00 Urine Bacteria (Auto) 4+ /HPF (Negative) 08/16/21 08:00 Urine Mucus 1+ /HPF 08/16/21 08:00 Urine Yeast (Budding) 2+ /HPF 08/16/21 08:00 Nasal Screen MRSA (PCR) Negative (Negative) 08/20/21 03:50 Urine Opiates Screen Negative 08/16/21 20:58 Urine Methadone Screen Negative 08/16/21 20:58 Ur Barbiturates Screen Negative 08/16/21 20:58 Ur Phencyclidine Scrn Negative 08/16/21 20:58 Ur Amphetamines Screen Negative 08/16/21 20:58 U Benzodiazepines Scrn Negative 08/16/21 20:58 Urine Cocaine Screen Negative 08/16/21 20:58 U Marijuana (THC) Screen Negative 08/16/21 20:58 Drugs of Abuse Note Disclamer 08/16/21 20:58 Plasma/Serum Alcohol < 0.01 % (0-0.07) 08/16/21 20:06 Blood Type B POSITIVE 08/18/21 20:50 Antibody Screen Negative 08/18/21 20:50 Crossmatch See Detail 08/18/21 20:50 Microbiology: Microbiology 08/16/21 22:38 Peripheral/Venous Blood Culture - Preliminary NO GROWTH AFTER 4 DAYS 08/16/21 22:44 Peripheral/Venous Blood Culture - Preliminary NO GROWTH AFTER 4 DAYS Noriega/IV: Voiding Method Indwelling Catheter Active Medications - Current Medications Current Medications: Generic Name Dose Route Start Last Admin Trade Name Freq PRN Reason Stop Dose Admin Acetaminophen 650 mg 08/16/21 21:28 Acetaminophen 650 Mg Rect Supp HI Q6H PRN Pain MILD(1-3)/Fever >100.5/PÉREZ Amlodipine Besylate 5 mg 08/21/21 12:00 08/21/21 12:59 Amlodipine 5 Mg Tab PO 5 mg QDAY LADAN Administration Lipase/Protease/Amylase 1 each 08/21/21 11:52 Lipase 10,500/Protease 25,000/Amylase 43,750 (Units) Dr [place] FEEDTUBE PRN PRN For Clogged Feeding Tube Atorvastatin Calcium 40 mg 08/21/21 22:00 Atorvastatin 40 Mg Tab PO QHS LADAN Dextrose 0 ml 08/16/21 21:28 08/17/21 16:54 Dextrose 50% In Water (25gm) 50 Ml Syringe IV 10 ml Q30MIN PRN Administration Hypoglycemia Protocol Furosemide 80 mg 08/21/21 12:00 08/21/21 13:01 Furosemide 40 Mg Tab PO 80 mg QDAY LADAN Administration Heparin Sodium (Porcine) 5,000 unit 08/16/21 22:00 08/21/21 14:05 Heparin 5,000 Unit/1 Ml Vial SUB-Q Not Given Q8HR [facility] Heparin Sodium (Porcine) 3,000 unit 08/18/21 08:05 08/20/21 15:03 Heparin 10,000 Units/10 Ml Vial IV 3,000 unit TITO PRN Administration hemodialysis Hydralazine HCl 10 mg 08/17/21 04:30 08/21/21 09:48 Hydralazine 20 Mg/1 Ml Inj IV 10 mg Q4HR PRN Administration Hypertension Sodium Chloride 100 mls @ 999 mls/hr 08/18/21 08:05 Nacl 0.9% IV TITO PRN Hypotension Cefepime HCl 2 gm in 100 mls @ 200 mls/hr 08/19/21 10:00 08/21/21 09:47 Cefepime/Ns 2 Gm/100 Ml IV 08/25/21 10:29 200 mls/hr Q24H [facility] Administration Protocol Insulin Human Lispro 0 unit 08/18/21 12:00 08/21/21 12:59 Insulin Lispro 100 Unit/Ml SUB-Q Not Given Q6HR [facility] Protocol Metoprolol Tartrate 25 mg 08/21/21 12:00 08/21/21 13:03 Metoprolol Tartrate 25 Mg Tab PO 25 mg BID [facility] Administration Naloxone HCl 0.4 mg 08/16/21 20:05 08/16/21 18:53 Naloxone 0.4 Mg/1 Ml Inj IV 0.4 mg Q2MIN PRN Administration Res Rate </= 8 or 02 SAT < 92% Ondansetron HCl 4 mg 08/16/21 21:28 Ondansetron 4 Mg/2 Ml Inj IV Q8H PRN Nausea And Vomiting Pantoprazole Sodium 40 mg 08/19/21 10:00 08/21/21 09:47 Pantoprazole 40 Mg Inj IV 40 mg QDAY [facility] Administration Simple Syrup 15 ml 08/21/21 11:52 Simple Syrup 15 Ml FEEDTUBE PRN PRN Hypoglycemia Simple Syrup 30 ml 08/21/21 11:52 Simple Syrup 15 Ml FEEDTUBE PRN PRN Hypoglycemia Sodium Bicarbonate 325 mg 08/21/21 11:52 Sodium Bicarbonate 325 Mg Tab FEEDTUBE PRN PRN For Clogged Feeding Tube Sodium Chloride 10 ml 08/16/21 22:00 08/21/21 09:48 Sodium Chloride 0.9% 10 Ml Flush Syringe IV 10 ml BID LADAN Administration Sodium Chloride 10 ml 08/16/21 21:28 Sodium Chloride 0.9% 10 Ml Flush Syringe IV PRN PRN LINE FLUSH Nutrition/Malnutrition Assess - Dietary Evaluation Nutrition/Malnutrition Findings: Nutrition Notes Start: 08/17/21 10:25 Freq: Status: Active Protocol: Document 08/21/21 11:36 GB (Rec: 08/21/21 11:51 GB [id number]) Nutrition Notes Initial or Follow up Reassessment Current Diagnosis CKD (stage V CKD),Coronary Artery Disease,Diabetes, Hypertension,Heart Failure, Respiratory Failure Other Pertinent Diagnosis UTI, on HD, encephalopathy, drug OD Current Diet NPO x1day Labs/Tests 08/21: Creatinine 3.2 ( improving), glucose 152 ( fluctuating in stable range), Ca 8.1 (improving) Pertinent Medications D5(PRN) Height 5 ft 8 in Weight 91 kg [place] Body Weight (kg) 63.63 BMI 30.4 Weight change and time frame no change reported 08/21: no new weights recorded at time of assessment Weight Status Obese Subjective/Other Information MD consult for diet education - not a candidate for education r/t unable to comprehend MD consult for write/manage tube feeding MD notes 08/21: abdominal Xray ordered. RN discussion: dobhoff to be placed today. Last BM: 08/20 RD: to place TF order. Start once gastric tube is verified. Percent of energy/protein needs met: 0% per NPO TF order to be placed and once at goal will meet 75% or greater of EEN Burn Absent Trauma Absent GI Symptoms None Difficulty In Swallowing Food Allergy No Skin Integrity/Comment wounds DM ulcers LLE, RLE Current % PO Other Minimum of two criteria No #2 Nutrition Diagnosis Food and nutrition-related knowledge deficit Comments: 08/21: pt not a candidate for education. Does not respond to Yes/No questions. Eyes open, awake, and looks at person speaking, no responses for comprehension. Etiology HD dependent, DM As Evidenced by Signs and Symptoms MD consult for nutrition education, previously intubated/sedated Diagnosis Progress(for reassessment Resolved documentation) #1 Nutrition Diagnosis Inadequate oral intake Comments: 08/19: pt extubated 10am, diet to start 08/21: NPO x 1 day. TF consult to start today once dobhoff placed/verified. [employer]: bolus holding, failure to initiate swallow. - remain NPO - [employer] following Etiology drug OD, ARF As Evidenced by Signs and Symptoms pt on vent and unable to consume PO Diagnosis Progress(for reassessment Continues documentation) Is patient on ventilator? No Is Patient Ambulatory and/or Out of Bed No REE-([facility]-confined to bed) 1768.020 Kcal/Kg value to use for calculation 20 Approximate Energy Requirements Using 1820 kcal/Kg Calculation Used for Recommendations Kcal/kg Additional Notes Protein: 1-1.2g/kg @ 91k- 109g Fluid: 1 ml/kcal or per MD Nutrition Intervention Change Diet Order: Advance to consistent carbohydrate Per [employer] swallow evaluation results. Nutrition Support: Nepro @ 42ml/hr. Start rate 22ml/hr. Increase 10ml/8hr as tolerated. Flush: 146ml/4hr. Or per MD Total free water/day: TF@goal + flush = 1600ml Kcal 1,800 Protein (gm) 81 Carbohydrates (gm) 161 Fat (gm) 96 Fluid (mL) 727 Fiber (gm) 13 % RDI: 100%kcal/89%pro Education Handouts Provided Not a candidate for education r/t alert but not responsive. Goal #1 Diet started and advanced to consistent carbohydrate by f/u . 08/21: TF to start r/t [employer] swallow eval not passed and recommended for NPO to continue Goal #2 TF (Nepro) to start by f/u. Goal #3 TF (nepro) at goal (42ml/hr) by f/u and tolerated. Follow-Up By: 08/25/21 Additional Comments F/U: TF at goal, [employer] swallow eval results
[2021-08-22] MEDS: INSULIN LISPRO 100 UNIT/ML SUB-Q SCH ×6 (00:10→18:16)
[2021-08-22] MEDS: HEPARIN 5,000 UNIT/1 ML VIAL SUB-Q SCH ×2 (05:11→22:00)
[2021-08-22 06:25] LABS: Hematocrit 24.8 % (30.3-42.9); Hemoglobin 8.2 gm/dl (10.1-14.3); Mean Corpuscular HGB Conc 33 % (30-34); Mean Corpuscular Volume 89 fl (79-97); Red Blood Count 2.79 M/mm3 (3.65-5.03); Red Cell Distribution Width 19.7 % (13.2-15.2)
[2021-08-22 06:47] LABS: Calcium 8.2 mg/dL (8.4-10.2)
[2021-08-22 07:37] LABS: Platelet Count 295 K/mm3 (140-440)
--- NOTE | 2021-08-22 09:54 | Gastroenterology Progress Note ---
Assessment and Plan - Patient Problems (1) Hematochezia Current Visit: Yes Status: Acute Plan to address problem: - The most likely diagnosis, based on her past medical history, is mild colon ischemia. Since she has no severe abdominal pain, fevers, or markedly elevated WBC, we will monitor conservatively for now. - OK to given necessary anticoagulation (heparin in HD, cardiac ASA) but would avoid NSAIDs. - Continue HD and transfusion as needed; when mental status clears we can perform an EGD/colonoscopy to further evaluate; at present would be unable to swallow prep and remains dependent on Dobhoff feeds. Subjective Date of service: 08/22/21 Principal diagnosis: GIB Interval history: The patient had no rectal bleeding overnight, but was reported to have vaginal bleeding. Hemoglobin stable. MRI was negative, and she is slightly more alert today (but pulled her Dobhoff tube out). She has had no N/V and has no c/o abdominal pain. Objective - Constitutional Vitals: Temp Pulse Resp BP Pulse Ox 99.6 F 87 20 139/63 95 08/22/21 04:49 08/22/21 04:49 08/22/21 04:49 08/22/21 04:49 08/22/21 04:49 General appearance: no acute distress - Neck Neck: supple, normal ROM - Respiratory Respiratory effort: normal Respiratory: bilateral: CTA - Cardiovascular Rhythm: regular Heart Sounds: Present: S1 & S2 - Gastrointestinal General gastrointestinal: Present: soft, non-tender, non-distended - Neurologic Neurological: other (More alert; can say a few words, and moving her extremeties; follows simple commands) - Labs CBC & Chem 7: 08/22/21 06:05 08/22/21 06:05 Labs: Laboratory Results - last 24 hr 08/20/21 08/21/21 08/21/21 03:50 11:36 23:36 WBC RBC Hgb Hct MCV MCH MCHC RDW Plt Count Sodium Potassium Chloride Carbon Dioxide Anion Gap BUN Creatinine Estimated GFR BUN/Creatinine Ratio Glucose POC Glucose 144 H 173 H Calcium Nasal Screen MRSA (PCR) Negative 08/22/21 08/22/21 08/22/21 05:19 06:05 06:05 WBC 8.7 RBC 2.79 L Hgb 8.2 L Hct 24.8 L MCV 89 MCH 29 MCHC 33 RDW 19.7 H Plt Count 295 Sodium 141 Potassium 3.4 L Chloride 101.7 Carbon Dioxide 24 Anion Gap 19 BUN 24 H Creatinine 4.6 H Estimated GFR 9 BUN/Creatinine Ratio 5 Glucose 187 H POC Glucose 158 H Calcium 8.2 L Nasal Screen MRSA (PCR)
--- NOTE | 2021-08-22 10:38 | Progress Note ---
Assessment and Plan Assessment and Plan - Patient Problems # Encephalopathy on intial presentation was intubated and sedated -08/19 she is extubated not following command -moves all limbs -? Aphasia Vs seizure -NIH#9 today unchanged related to confusion and lack of speech out put. --EEG pending with no acute event -still perceptive aphasia can not be excluded !!! -ASA and Plavix on hold due to GI bleed. -Lipitor 40 mg daily -Possibly secondary to underlying infection. -Urinalysis-reveals UTI. -Patient placed on empiric IV antibiotics and IV fluid. # Diabetes -Patient placed on sliding scale insulin. -We will monitor Accu-Cheks closely.- # HTN (hypertension) -We will resume routine home medications once able to tolerate p.o. oral intake. -Meanwhile we will place on IV hydralazine as needed for blood pressure control # ESRD (end stage renal disease) -We will place consult to nephrology for evaluation and for dialysis during this admission. -BUN/Cr#29/4.8 # Urinary tract infection -Patient commenced on empiric IV antibiotics. # DVT prophylaxis -Patient placed on subcutaneous heparin. # Full code status -Patient is full code. Suggest Speech therapy -restart ASA when possible -lipitor 40 mg daily -ESRD on dialysis will follow as needed Subjective Date of service: 08/22/21 Principal diagnosis: GIB Interval history: alert not follow command at time star at you with possibly attempt to talk !! No focal weakness is appreciated Vital are stable BUN/Cr#16/3.2 MRI brain showed no acute event and EEG showed mild diffuse slowing no epileptiform discharges is noted. Objective - Vital Sign Vital Signs - 12hr 08/21/21 08/22/21 23:08 04:49 Temperature 99.6 F Pulse Rate 82 87 Respiratory 20 Rate Blood Pressure 154/63 139/63 O2 Sat by Pulse 95 Oximetry - General Apperance Constitutional: comfortable - EENT EENT: PERRL, mucous membranes moist - Respiratory Respiratory: chest non-tender, lungs clear, rhonchi - Cardiovascular Cardiovascular: regular rate, normal S1, normal S2 Extremities: no peripheral edema bilat, no clubbing, cyanosis - Gastrointestinal Gastrointestinal: normoactive bowel sounds - Integumentary Integumentary: normal - Neurologic Cranial nerve examination: PERRL, EOMI, intact Speech examination: sensory aphasia, other Detailed motor examination: grossly full strength in - Laboratory Findings CBC and BMP: 08/22/21 06:05 08/22/21 06:05 Abnormal Lab Findings: Abnormal Labs 08/16/21 08/16/21 08/16/21 08:00 20:06 20:06 WBC RBC 3.24 L Hgb Hct MCV 98 H RDW 17.8 H [place] % (Auto) [place] # (Auto) Seg Neutrophils % ABG pH POC ABG pCO2 POC ABG pO2 ABG pO2 ABG O2 Saturation ABG Hemoglobin ABG Oxyhemoglobin ABG Sodium ABG Glucose Oxyhemoglobin Carboxyhemoglobin Sodium Potassium Chloride Carbon Dioxide BUN 35 H Creatinine 6.1 H Glucose 175 H POC Glucose Calcium Magnesium Alkaline Phosphatase Total Protein Albumin Arterial Blood Glucose Urine Blood Moderate A Urine WBC (Auto) > 182.0 H U Epithel Cells (Auto) 32.0 H Crossmatch 08/16/21 08/17/21 08/17/21 20:35 03:08 04:41 WBC RBC 2.89 L Hgb 8.9 L Hct 28.3 L MCV 98 H RDW 17.5 H [place] % (Auto) 8.3 H [place] # (Auto) 0.9 H Seg Neutrophils % 71.2 H ABG pH 7.534 H 7.525 H POC ABG pCO2 POC ABG pO2 ABG pO2 248.5 H 45.2 L ABG O2 Saturation 99.4 H 81.2 L ABG Hemoglobin 10.1 L 8.8 L ABG Oxyhemoglobin ABG Sodium ABG Glucose Oxyhemoglobin 79.6 L Carboxyhemoglobin Sodium Potassium Chloride Carbon Dioxide BUN Creatinine Glucose POC Glucose Calcium Magnesium Alkaline Phosphatase Total Protein Albumin Arterial Blood Glucose Urine Blood Urine WBC (Auto) U Epithel Cells (Auto) Crossmatch 08/17/21 08/17/21 08/17/21 04:41 04:56 07:50 WBC RBC Hgb Hct MCV RDW [place] % (Auto) [place] # (Auto) Seg Neutrophils % ABG pH 7.505 H POC ABG pCO2 28.4 L POC ABG pO2 184.8 H ABG pO2 ABG O2 Saturation ABG Hemoglobin 10.0 L ABG Oxyhemoglobin 99.0 H ABG Sodium 135.0 L ABG Glucose 142 H Oxyhemoglobin Carboxyhemoglobin 0.3 L Sodium Potassium Chloride Carbon Dioxide 21 L BUN 39 H Creatinine 6.1 H Glucose 147 H POC Glucose 152 H Calcium 7.8 L Magnesium Alkaline Phosphatase Total Protein Albumin Arterial Blood Glucose 142 H Urine Blood Urine WBC (Auto) U Epithel Cells (Auto) Crossmatch 08/17/21 08/18/21 08/18/21 11:47 04:15 04:15 WBC RBC Hgb 9.3 L Hct 29.4 L MCV RDW [place] % (Auto) [place] # (Auto) Seg Neutrophils % ABG pH POC ABG pCO2 POC ABG pO2 ABG pO2 ABG O2 Saturation ABG Hemoglobin ABG Oxyhemoglobin ABG Sodium ABG Glucose Oxyhemoglobin Carboxyhemoglobin Sodium Potassium Chloride Carbon Dioxide 17 L BUN 40 H Creatinine 6.0 H Glucose POC Glucose 108 H Calcium 7.9 L Magnesium Alkaline Phosphatase 144 H Total Protein 6.1 L Albumin 1.6 L Arterial Blood Glucose Urine Blood Urine WBC (Auto) U Epithel Cells (Auto) Crossmatch 08/18/21 08/18/21 08/18/21 04:30 20:42 20:49 WBC RBC Hgb 6.9 L Hct 21.5 L D MCV RDW [place] % (Auto) [place] # (Auto) Seg Neutrophils % ABG pH POC ABG pCO2 POC ABG pO2 124.7 H ABG pO2 ABG O2 Saturation ABG Hemoglobin 10.1 L ABG Oxyhemoglobin 98.1 H ABG Sodium 135.5 L ABG Glucose Oxyhemoglobin Carboxyhemoglobin 0 L Sodium Potassium Chloride Carbon Dioxide BUN Creatinine Glucose POC Glucose 133 H Calcium Magnesium Alkaline Phosphatase Total Protein Albumin Arterial Blood Glucose Urine Blood Urine WBC (Auto) U Epithel Cells (Auto) Crossmatch 08/18/21 08/19/21 08/19/21 20:50 05:38 08:06 WBC 21.3 H RBC 2.55 L Hgb 7.5 L Hct 23.4 L MCV RDW 22.1 H [place] % (Auto) [place] # (Auto) Seg Neutrophils % ABG pH POC ABG pCO2 POC ABG pO2 ABG pO2 ABG O2 Saturation ABG Hemoglobin ABG Oxyhemoglobin ABG Sodium ABG Glucose Oxyhemoglobin Carboxyhemoglobin Sodium Potassium Chloride Carbon Dioxide BUN Creatinine Glucose POC Glucose 147 H Calcium Magnesium Alkaline Phosphatase Total Protein Albumin Arterial Blood Glucose Urine Blood Urine WBC (Auto) U Epithel Cells (Auto) Crossmatch See Detail 08/19/21 08/19/21 08/19/21 08:06 11:09 17:25 WBC RBC Hgb Hct MCV RDW [place] % (Auto) [place] # (Auto) Seg Neutrophils % ABG pH POC ABG pCO2 POC ABG pO2 ABG pO2 ABG O2 Saturation ABG Hemoglobin ABG Oxyhemoglobin ABG Sodium ABG Glucose Oxyhemoglobin Carboxyhemoglobin Sodium 136 L Potassium Chloride 97.8 L Carbon Dioxide 19 L BUN 23 H Creatinine 4.0 H Glucose 172 H POC Glucose 165 H 115 H Calcium 7.1 L Magnesium Alkaline Phosphatase Total Protein Albumin Arterial Blood Glucose Urine Blood Urine WBC (Auto) U Epithel Cells (Auto) Crossmatch 08/19/21 08/19/21 08/20/21 22:25 23:38 05:16 WBC 14.0 H RBC 2.78 L Hgb 8.7 L 8.4 L Hct 27.5 L 24.8 L MCV RDW 19.8 H [place] % (Auto) [place] # (Auto) Seg Neutrophils % ABG pH POC ABG pCO2 POC ABG pO2 ABG pO2 ABG O2 Saturation ABG Hemoglobin ABG Oxyhemoglobin ABG Sodium ABG Glucose Oxyhemoglobin Carboxyhemoglobin Sodium Potassium Chloride Carbon Dioxide BUN Creatinine Glucose POC Glucose 117 H Calcium Magnesium Alkaline Phosphatase Total Protein Albumin Arterial Blood Glucose Urine Blood Urine WBC (Auto) U Epithel Cells (Auto) Crossmatch 08/20/21 08/20/21 08/20/21 05:16 05:30 08:32 WBC RBC Hgb 9.2 L Hct 28.7 L MCV RDW [place] % (Auto) [place] # (Auto) Seg Neutrophils % ABG pH POC ABG pCO2 POC ABG pO2 ABG pO2 ABG O2 Saturation ABG Hemoglobin ABG Oxyhemoglobin ABG Sodium ABG Glucose Oxyhemoglobin Carboxyhemoglobin Sodium Potassium Chloride Carbon Dioxide 21 L BUN 29 H Creatinine 4.8 H Glucose 125 H POC Glucose 118 H Calcium 7.6 L Magnesium 1.50 L Alkaline Phosphatase Total Protein Albumin Arterial Blood Glucose Urine Blood Urine WBC (Auto) U Epithel Cells (Auto) Crossmatch 08/20/21 08/20/21 08/20/21 12:10 16:17 17:59 WBC RBC Hgb 9.6 L Hct 29.4 L MCV RDW [place] % (Auto) [place] # (Auto) Seg Neutrophils % ABG pH POC ABG pCO2 POC ABG pO2 ABG pO2 ABG O2 Saturation ABG Hemoglobin ABG Oxyhemoglobin ABG Sodium ABG Glucose Oxyhemoglobin Carboxyhemoglobin Sodium Potassium Chloride Carbon Dioxide BUN Creatinine Glucose POC Glucose 141 H 138 H Calcium Magnesium Alkaline Phosphatase Total Protein Albumin Arterial Blood Glucose Urine Blood Urine WBC (Auto) U Epithel Cells (Auto) Crossmatch 08/21/21 08/21/21 08/21/21 00:01 04:36 04:36 WBC RBC 3.00 L Hgb 8.7 L Hct 26.9 L MCV RDW 20.6 H [place] % (Auto) [place] # (Auto) Seg Neutrophils % ABG pH POC ABG pCO2 POC ABG pO2 ABG pO2 ABG O2 Saturation ABG Hemoglobin ABG Oxyhemoglobin ABG Sodium ABG Glucose Oxyhemoglobin Carboxyhemoglobin Sodium Potassium Chloride Carbon Dioxide 21 L BUN Creatinine 3.2 H Glucose 152 H POC Glucose 144 H Calcium 8.1 L Magnesium Alkaline Phosphatase Total Protein Albumin Arterial Blood Glucose Urine Blood Urine WBC (Auto) U Epithel Cells (Auto) Crossmatch 08/21/21 08/21/21 08/21/21 06:44 11:36 23:36 WBC RBC Hgb Hct MCV RDW [place] % (Auto) [place] # (Auto) Seg Neutrophils % ABG pH POC ABG pCO2 POC ABG pO2 ABG pO2 ABG O2 Saturation ABG Hemoglobin ABG Oxyhemoglobin ABG Sodium ABG Glucose Oxyhemoglobin Carboxyhemoglobin Sodium Potassium Chloride Carbon Dioxide BUN Creatinine Glucose POC Glucose 136 H 144 H 173 H Calcium Magnesium Alkaline Phosphatase Total Protein Albumin Arterial Blood Glucose Urine Blood Urine WBC (Auto) U Epithel Cells (Auto) Crossmatch 08/22/21 08/22/21 08/22/21 05:19 06:05 06:05 WBC RBC 2.79 L Hgb 8.2 L Hct 24.8 L MCV RDW 19.7 H [place] % (Auto) [place] # (Auto) Seg Neutrophils % ABG pH POC ABG pCO2 POC ABG pO2 ABG pO2 ABG O2 Saturation ABG Hemoglobin ABG Oxyhemoglobin ABG Sodium ABG Glucose Oxyhemoglobin Carboxyhemoglobin Sodium Potassium 3.4 L Chloride Carbon Dioxide BUN 24 H Creatinine 4.6 H Glucose 187 H POC Glucose 158 H Calcium 8.2 L Magnesium Alkaline Phosphatase Total Protein Albumin Arterial Blood Glucose Urine Blood Urine WBC (Auto) U Epithel Cells (Auto) Crossmatch
--- NOTE | 2021-08-22 11:22 | Progress Note ---
Assessment and Plan Assessment and plan: Assessment and plan: This is a 70-year-old female with HTN, CAD s/p stent, DM, ESRD on HD, calciphylaxis admitted with acute hypoxic respiratory failure, UTI Interval history: This is a 70-year-old female with HTN, DM, ESRD on HD, calciphylaxis who pr esented to the emergency department on 08/16 with altered mental status and decreased responsiveness. Patient was recently admitted to the hospital after possible overdose on Dilaudid after vascular surgery for varicose veins on a Narcan drip. Upon arrival to the emergency department patient was given Narcan without significant improvement and had hypoglycemia into the 200s on initial presentation. Patient was obtunded and subsequently intubated to protect her airway. Work-up in the emergency department included a CXR and CT scan of the head which were unremarkable. Urinalysis revealed UTI patient was started on empiric antibiotics. Patient was admitted to the hospitalist service with consults to nephrology and [facility]. 08/17/21: Pt intubated, CC and nephro consulted, follow cx, cont abx, gurded prognosis 08/18/21: s/p HD today, plan to d/c all sedation and to monitor mental status, f ollow am lab. s/p one unit PRBC today 08/19/21: Patient was extubated today, urine culture resulted with E. coli and Klebsiella pneumoniae, trach aspirate with Pseudomonas aeruginosa however all are sensitive to cefepime which the patient is already on. 08/20: Neurology consulted, MRI brain and EEG pending, patient will be transferred out of the unit with remote telemetry as her H&H is stable. GI may scope the patient after another dialysis session if improvement with mentation. Patient failed speech evaluation and will be started on D10 while n.p.o. 08/21: Patient received MRI brain which showed microvascular angiopathy without evidence of recent territorial infarct. Dobbhoff placed and nutrition consulted for tube feedings. Patient received hemodialysis today. 08/22: Vaginal bleeding noted overnight, H&H is stable. Pelvic ultrasound is ordered will follow results. DC DVT prophylaxis at this time. Patient neurological recovery has been slow. She continues to follow some commands intermittently. However she still is aphasic and unable to communicate when questioned. EEG completed did not demonstrate any findings of seizure activity. Will await neurology final recommendations. ST recommended PEG as patient still at risk for aspiration. GI is already following patient right now but will discuss with them. Overall at this point continuing supportive management and hopeful neurologic recovery. On the last admission patient had taken approximately 6 to 7 days before returning to baseline. Will reassess through the weekend. was updated this afternoon. Avoid all opioid narcotics and sedatives in this patient please Neuro: Metabolic versus toxic encephalopathy -CT head with no acute findings -Avoid delirium -Reorientation as needed -Maintain sleep-wake cycle -Neurology consulted, appreciate recommendations -MRI brain shows no recent territorial infarct -EEG pending Cardio: h/o HTN, CAD s/p stent -resume home hypertensive regimen and adjust as needed -Blood pressure monitor per protocol -As needed hydralazine -Resume home Lipitor -Hold home aspirin, Plavix Respiratory: Acute hypoxic respiratory failure -Patient was intubated 08/16 and extubated on 08/19 -Patient is currently on room air -Pulmonary hygiene -Supplemental oxygen as needed -SPO2 monitoring GI: Hematochezia -GI consulted, appreciate recommendations -Protonix IV -NG tube placed today -Nutrition consulted -Tube feedings started -24-hour -45 -Hold as needed at this time given GI bleed : ESRD on HD, calciphylaxis, hyponatremia, hypochloremia, metabolic acidosis -Nephrology consulted, appreciate recommendations -HD per nephrology -Renally dose medications -Strict intake and output -Daily weights -Trend BMP ID: E. coli and Klebsiella pneumonia UTI, tracheal aspirate with Pseudomonas aeruginosa -Patient is on cefepime -Trend fever and WBC curve Heme: Anemia of chronic disease, GI bleed -S/p 2 units PRBC -Transfuse for less than 7 hemoglobin -Trend CBC -Epogen per nephrology -H/H every 6 - hold lovenox due to vaginal bleeding. Endo: h/o DM -Accu-Cheks every 6 -SSI as needed -Avoid hypoglycemia History Interval history: Some reports of vaginal bleeding overnight. H&H was ordered and hemoglobin is stable. Pelvic ultrasound was ordered today will follow result. Talk to patient while she was receiving dialysis today. Patient is able to follow me with her eyes and follow some simple commands. However she still nonconversive and not able to respond to questioning. I updated the patient's Hernandez on the patient's clinical progress and mentioned some of the next few steps. All of his questions and concerns were answered to his satisfaction. Hospitalist Physical - Physical exam Narrative exam: - General Apperance Constitutional: comfortable - EENT EENT: PERRL, mucous membranes moist - Respiratory Respiratory: chest non-tender, lungs clear, rhonchi - Cardiovascular Cardiovascular: regular rate, normal S1, normal S2 Extremities: no peripheral edema bilat, no clubbing, cyanosis - Gastrointestinal Gastrointestinal: normoactive bowel sounds - Integumentary Integumentary: normal - Neurologic Cranial nerve examination: PERRL, EOMI, intact Speech examination: sensory aphasia, other Detailed motor examination: grossly full strength in - Constitutional Vitals: Temp Pulse Resp BP Pulse Ox 99.6 F 87 20 139/63 95 08/22/21 04:49 08/22/21 04:49 08/22/21 04:49 08/22/21 04:49 08/22/21 04:49 General appearance: Present: well-nourished Results - Labs CBC & Chem 7: 08/22/21 06:05 08/22/21 06:05 Labs: Laboratory Last Values WBC 8.7 K/mm3 (4.5-11.0) 08/22/21 06:05 RBC 2.79 M/mm3 (3.65-5.03) L 08/22/21 06:05 Hgb 8.2 gm/dl (10.1-14.3) L 08/22/21 06:05 Hct 24.8 % (30.3-42.9) L 08/22/21 06:05 MCV 89 fl (79-97) 08/22/21 06:05 MCH 29 pg (28-32) 08/22/21 06:05 MCHC 33 % (30-34) 08/22/21 06:05 RDW 19.7 % (13.2-15.2) H 08/22/21 06:05 Plt Count 295 K/mm3 (140-440) 08/22/21 06:05 Lymph % (Auto) 17.4 % (13.4-35.0) 08/17/21 04:41 [place] % (Auto) 8.3 % (0.0-7.3) H 08/17/21 04:41 Eos % (Auto) 2.6 % (0.0-4.3) 08/17/21 04:41 Baso % (Auto) 0.5 % (0.0-1.8) 08/17/21 04:41 Lymph # (Auto) 1.9 K/mm3 (1.2-5.4) 08/17/21 04:41 [place] # (Auto) 0.9 K/mm3 (0.0-0.8) H 08/17/21 04:41 Eos # (Auto) 0.3 K/mm3 (0.0-0.4) 08/17/21 04:41 Baso # (Auto) 0.1 K/mm3 (0.0-0.1) 08/17/21 04:41 Seg Neutrophils % 71.2 % (40.0-70.0) H 08/17/21 04:41 Seg Neutrophils # 7.6 K/mm3 (1.8-7.7) 08/17/21 04:41 PT 13.9 Sec. (12.2-14.9) 08/17/21 04:41 INR 0.96 (0.87-1.13) 08/17/21 04:41 ABG pH 7.373 (7.320-7.450) 08/18/21 04:30 POC ABG pCO2 33.4 mmHg (32.0-48.0) 08/18/21 04:30 ABG pCO2 28.7 mm Hg 08/17/21 03:08 POC ABG pO2 124.7 mmHg (83-108) H 08/18/21 04:30 ABG pO2 45.2 mm Hg (80.0-90.0) L 08/17/21 03:08 POC ABG HCO3 19.0 08/18/21 04:30 ABG HCO3 23.2 mmol/L (20.0-26.0) 08/17/21 03:08 ABG O2 Saturation 98.4 (0-100) 08/18/21 04:30 ABG O2 Content 9.8 (0.0-44) 08/17/21 03:08 POC ABG Base Excess -5.5 08/18/21 04:30 ABG Base Excess 0.8 mmol/L (-2.0-3.0) 08/17/21 03:08 ABG Hemoglobin 10.1 (12.0-17.5) L 08/18/21 04:30 ABG Oxyhemoglobin 98.1 (94-98) H 08/18/21 04:30 ABG Carboxyhemoglobin 1.5 % (0.0-5.0) 08/17/21 03:08 ABG Methemoglobin 0.3 (0.0-1.5) 08/18/21 04:30 ABG Sodium 135.5 mmol/L (136.0-145.0) L 08/18/21 04:30 ABG Potassium 4.0 mmol/L (3.40-4.50) 08/18/21 04:30 ABG Chloride 106.0 mmol/L (98-107) 08/18/21 04:30 ABG Glucose 80 mg/dL (65-95) 08/18/21 04:30 Oxyhemoglobin 79.6 % (95.0-99.0) L 08/17/21 03:08 Carboxyhemoglobin 0 (0.5-1.5) L 08/18/21 04:30 FiO2 45 % 08/17/21 03:08 FiO2 % 30.0 08/18/21 04:30 Sodium 141 mmol/L (137-145) 08/22/21 06:05 Potassium 3.4 mmol/L (3.6-5.0) L 08/22/21 06:05 Chloride 101.7 mmol/L (98-107) 08/22/21 06:05 Carbon Dioxide 24 mmol/L (22-30) 08/22/21 06:05 Anion Gap 19 mmol/L 08/22/21 06:05 BUN 24 mg/dL (7-17) H 08/22/21 06:05 Creatinine 4.6 mg/dL (0.6-1.2) H 08/22/21 06:05 Estimated GFR 9 ml/min 08/22/21 06:05 BUN/Creatinine Ratio 5 % 08/22/21 06:05 Glucose 187 mg/dL (65-100) H 08/22/21 06:05 POC Glucose 158 mg/dL (70-105) H 08/22/21 05:19 Lactic Acid 1.00 mmol/L (0.7-2.0) 08/16/21 22:44 Calcium 8.2 mg/dL (8.4-10.2) L 08/22/21 06:05 Phosphorus 3.30 mg/dL (2.5-4.5) 08/21/21 04:36 Magnesium 2.00 mg/dL (1.7-2.3) 08/21/21 04:36 Total Bilirubin 0.20 mg/dL (0.1-1.2) 08/18/21 04:15 AST 23 units/L (5-40) 08/18/21 04:15 ALT 11 units/L (7-56) 08/18/21 04:15 Alkaline Phosphatase 144 units/L (35-129) H 08/18/21 04:15 Total Protein 6.1 g/dL (6.3-8.2) L 08/18/21 04:15 Albumin 1.6 g/dL (3.9-5) L 08/18/21 04:15 Albumin/Globulin Ratio 0.4 % 08/18/21 04:15 Arterial Blood Glucose 80 mg/dL (65-95) 08/18/21 04:30 Urine Color Yellow (Yellow) 08/16/21 08:00 Urine Turbidity Turbid (Clear) 08/16/21 08:00 Urine pH 6.0 (5.0-7.0) 08/16/21 08:00 Ur Specific [place] 1.010 (1.003-1.030) 08/16/21 08:00 Urine Protein >500 mg/dL (Negative) 08/16/21 08:00 Urine Glucose (UA) Negative mg/dL (Negative) 08/16/21 08:00 Urine Ketones Negative mg/dL (Negative) 08/16/21 08:00 Urine Blood Moderate (Negative) A 08/16/21 08:00 Urine Nitrite Negative (Negative) 08/16/21 08:00 Ur Reducing Substances Not Reportable 08/16/21 08:00 Urine Bilirubin Negative (Negative) 08/16/21 08:00 Urine Ictotest Not Reportable 08/16/21 08:00 Urine Urobilinogen < 2.0 mg/dL (<2.0) 08/16/21 08:00 Ur Leukocyte Esterase Large (Negative) 08/16/21 08:00 Urine WBC (Auto) > 182.0 /HPF (0.0-6.0) H 08/16/21 08:00 Urine RBC (Auto) 17.0 /HPF (0.0-6.0) 08/16/21 08:00 U Epithel Cells (Auto) 32.0 /HPF (0-13.0) H 08/16/21 08:00 Urine Bacteria (Auto) 4+ /HPF (Negative) 08/16/21 08:00 Urine Mucus 1+ /HPF 08/16/21 08:00 Urine Yeast (Budding) 2+ /HPF 08/16/21 08:00 Nasal Screen MRSA (PCR) Negative (Negative) 08/20/21 03:50 Urine Opiates Screen Negative 08/16/21 20:58 Urine Methadone Screen Negative 08/16/21 20:58 Ur Barbiturates Screen Negative 08/16/21 20:58 Ur Phencyclidine Scrn Negative 08/16/21 20:58 Ur Amphetamines Screen Negative 08/16/21 20:58 U Benzodiazepines Scrn Negative 08/16/21 20:58 Urine Cocaine Screen Negative 08/16/21 20:58 U Marijuana (THC) Screen Negative 08/16/21 20:58 Drugs of Abuse Note Disclamer 08/16/21 20:58 Plasma/Serum Alcohol < 0.01 % (0-0.07) 08/16/21 20:06 Blood Type B POSITIVE 08/18/21 20:50 Antibody Screen Negative 08/18/21 20:50 Crossmatch See Detail 08/18/21 20:50 Microbiology: Microbiology 08/16/21 22:38 Peripheral/Venous Blood Culture - Final NO GROWTH AFTER 5 DAYS 08/16/21 22:44 Peripheral/Venous Blood Culture - Final NO GROWTH AFTER 5 DAYS Noriega/IV: Voiding Method Indwelling Catheter Active Medications - Current Medications Current Medications: Generic Name Dose Route Start Last Admin Trade Name Freq PRN Reason Stop Dose Admin Acetaminophen 650 mg 08/16/21 21:28 Acetaminophen 650 Mg Rect Supp MD Q6H PRN Pain MILD(1-3)/Fever >100.5/PÉREZ Amlodipine Besylate 5 mg 08/21/21 12:00 08/21/21 12:59 Amlodipine 5 Mg Tab PO 5 mg QDAY LADAN Administration Lipase/Protease/Amylase 1 each 08/21/21 11:52 Lipase 10,500/Protease 25,000/Amylase 43,750 (Units) Dr [place] FEEDTUBE PRN PRN For Clogged Feeding Tube Atorvastatin Calcium 40 mg 08/21/21 22:00 08/21/21 22:03 Atorvastatin 40 Mg Tab PO 40 mg QHS LADAN Administration Dextrose 0 ml 08/16/21 21:28 08/17/21 16:54 Dextrose 50% In Water (25gm) 50 Ml Syringe IV 10 ml Q30MIN PRN Administration Hypoglycemia Protocol Furosemide 80 mg 08/21/21 12:00 08/21/21 13:01 Furosemide 40 Mg Tab PO 80 mg QDAY LADAN Administration Heparin Sodium (Porcine) 3,000 unit 08/18/21 08:05 08/20/21 15:03 Heparin 10,000 Units/10 Ml Vial IV 3,000 unit TITO PRN Administration hemodialysis Heparin Sodium (Porcine) 5,000 unit 08/22/21 22:00 Heparin 5,000 Unit/1 Ml Vial SUB-Q Q12HR [facility] Hydralazine HCl 10 mg 08/17/21 04:30 08/21/21 09:48 Hydralazine 20 Mg/1 Ml Inj IV 10 mg Q4HR PRN Administration Hypertension Sodium Chloride 100 mls @ 999 mls/hr 08/18/21 08:05 Nacl 0.9% IV TITO PRN Hypotension Cefepime HCl 2 gm in 100 mls @ 200 mls/hr 08/19/21 10:00 08/21/21 09:47 Cefepime/Ns 2 Gm/100 Ml IV 08/25/21 10:29 200 mls/hr Q24H LADAN Administration Protocol Insulin Human Lispro 0 unit 08/18/21 12:00 08/22/21 06:32 Insulin Lispro 100 Unit/Ml SUB-Q 2 unit Q6HR LADAN Administration Protocol Metoprolol Tartrate 25 mg 08/21/21 12:00 08/21/21 23:08 Metoprolol Tartrate 25 Mg Tab PO 25 mg BID LADAN Administration Naloxone HCl 0.4 mg 08/16/21 20:05 08/16/21 18:53 Naloxone 0.4 Mg/1 Ml Inj IV 0.4 mg Q2MIN PRN Administration Res Rate </= 8 or 02 SAT < 92% Ondansetron HCl 4 mg 08/16/21 21:28 Ondansetron 4 Mg/2 Ml Inj IV Q8H PRN Nausea And Vomiting Pantoprazole Sodium 40 mg 08/19/21 10:00 08/21/21 09:47 Pantoprazole 40 Mg Inj IV 40 mg QDAY LADAN Administration Simple Syrup 15 ml 08/21/21 11:52 Simple Syrup 15 Ml FEEDTUBE PRN PRN Hypoglycemia Simple Syrup 30 ml 08/21/21 11:52 Simple Syrup 15 Ml FEEDTUBE PRN PRN Hypoglycemia Sodium Bicarbonate 325 mg 08/21/21 11:52 Sodium Bicarbonate 325 Mg Tab FEEDTUBE PRN PRN For Clogged Feeding Tube Sodium Chloride 10 ml 08/16/21 22:00 08/21/21 23:00 Sodium Chloride 0.9% 10 Ml Flush Syringe IV 10 ml BID LADAN Administration Sodium Chloride 10 ml 08/16/21 21:28 Sodium Chloride 0.9% 10 Ml Flush Syringe IV PRN PRN LINE FLUSH Nutrition/Malnutrition Assess - Dietary Evaluation Nutrition/Malnutrition Findings: Nutrition Notes Start: 08/17/21 10:25 Freq: Status: Active Protocol: Document 08/21/21 11:36 GB (Rec: 08/21/21 11:51 GB [id number]) Nutrition Notes Initial or Follow up Reassessment Current Diagnosis CKD (stage V CKD),Coronary Artery Disease,Diabetes, Hypertension,Heart Failure, Respiratory Failure Other Pertinent Diagnosis UTI, on HD, encephalopathy, drug OD Current Diet NPO x1day Labs/Tests 08/21: Creatinine 3.2 ( improving), glucose 152 ( fluctuating in stable range), Ca 8.1 (improving) Pertinent Medications D5(PRN) Height 5 ft 8 in Weight 91 kg [place] Body Weight (kg) 63.63 BMI 30.4 Weight change and time frame no change reported 08/21: no new weights recorded at time of assessment Weight Status Obese Subjective/Other Information MD consult for diet education - not a candidate for education r/t unable to comprehend MD consult for write/manage tube feeding MD notes 08/21: abdominal Xray ordered. RN discussion: dobhoff to be placed today. Last BM: 08/20 RD: to place TF order. Start once gastric tube is verified. Percent of energy/protein needs met: 0% per NPO TF order to be placed and once at goal will meet 75% or greater of EEN Burn Absent Trauma Absent GI Symptoms None Difficulty In Swallowing Food Allergy No Skin Integrity/Comment wounds DM ulcers LLE, RLE Current % PO Other Minimum of two criteria No #2 Nutrition Diagnosis Food and nutrition-related knowledge deficit Comments: 08/21: pt not a candidate for education. Does not respond to Yes/No questions. Eyes open, awake, and looks at person speaking, no responses for comprehension. Etiology HD dependent, DM As Evidenced by Signs and Symptoms MD consult for nutrition education, previously intubated/sedated Diagnosis Progress(for reassessment Resolved documentation) #1 Nutrition Diagnosis Inadequate oral intake Comments: 08/19: pt extubated 10am, diet to start 08/21: NPO x 1 day. TF consult to start today once dobhoff placed/verified. ADMINISTRATIVE STAFF SUPERVISOR: bolus holding, failure to initiate swallow. - remain NPO - ADMINISTRATIVE STAFF SUPERVISOR following Etiology drug OD, ARF As Evidenced by Signs and Symptoms pt on vent and unable to consume PO Diagnosis Progress(for reassessment Continues documentation) Is patient on ventilator? No Is Patient Ambulatory and/or Out of Bed No REE-([facility]-confined to bed) 1768.020 Kcal/Kg value to use for calculation 20 Approximate Energy Requirements Using 1820 kcal/Kg Calculation Used for Recommendations Kcal/kg Additional Notes Protein: 1-1.2g/kg @ 91k- 109g Fluid: 1 ml/kcal or per MD Nutrition Intervention Change Diet Order: Advance to consistent carbohydrate Per ADMINISTRATIVE STAFF SUPERVISOR swallow evaluation results. Nutrition Support: Nepro @ 42ml/hr. Start rate 22ml/hr. Increase 10ml/8hr as tolerated. Flush: 146ml/4hr. Or per MD Total free water/day: TF@goal + flush = 1600ml Kcal 1,800 Protein (gm) 81 Carbohydrates (gm) 161 Fat (gm) 96 Fluid (mL) 727 Fiber (gm) 13 % RDI: 100%kcal/89%pro Education Handouts Provided Not a candidate for education r/t alert but not responsive. Goal #1 Diet started and advanced to consistent carbohydrate by f/u . 08/21: TF to start r/t ADMINISTRATIVE STAFF SUPERVISOR swallow eval not passed and recommended for NPO to continue Goal #2 TF (Nepro) to start by f/u. Goal #3 TF (nepro) at goal (42ml/hr) by f/u and tolerated. Follow-Up By: 08/25/21 Additional Comments F/U: TF at goal, ADMINISTRATIVE STAFF SUPERVISOR swallow eval results
[2021-08-22] MEDS: EPOETIN ALFA-EPBX 10,000 UNIT/1 ML VIAL SUB-Q PRN (13:05)
--- NOTE | 2021-08-22 14:11 | Progress Note ---
Assessment and Plan 1. ESRD: Patient is on maintenance HD, MWF schedule. Patient was switched to hemodialysis about 2 months ago 2/2 calciphylaxis. Meds dosage based on GFR. Last outpatient HD ?08/15. Hemodialysis: 08/18, 08/20. HD today. 2. FEN: Mild anion-gap metabolic acidosis, on HD. Monitor lytes and volume status. 3. Acute metabolic encephalopathy, POA: ?2/[address] head negative. Followed by Neuro. Monitor. 4. H/o CAD s/p stent. Echo; EF 60%, LVH. 5. Anemia: Epogen with HD. 6. HTN: Monitor BP. 7. Type 2 DM. Subjective: Patient was seen and examined at the bedside. Examination: General appearance: well-developed, well-nourished, appears stated age HEENT: ATNC, pupils equal Neck: trachea midline Respiratory: Clear to Auscultation Cardiology: regular, S1S2, no murmur Gastrointestinal: normoactive bowel sounds, not tender, PD catheter noted Integumentary: b/l LE dressing noted Neurologic: lethargic, non-verbal Ext: no edema Hemodialysis access: R IJ tunnel catheter Subjective Date of service: 08/22/21 Principal diagnosis: GIB Objective - Vital Signs Vital signs: Vital Signs - 12hr 08/22/21 04:49 Temperature 99.6 F Pulse Rate 87 Respiratory 20 Rate Blood Pressure 139/63 O2 Sat by Pulse 95 Oximetry - Lab 08/22/21 06:05 08/22/21 06:05 Most recent lab results ABG pH 7.373 (7.320-7.450) 08/18/21 04:30 ABG pCO2 28.7 mm Hg 08/17/21 03:08 ABG pO2 45.2 mm Hg (80.0-90.0) L 08/17/21 03:08 ABG HCO3 23.2 mmol/L (20.0-26.0) 08/17/21 03:08 ABG O2 Saturation 98.4 (0-100) 08/18/21 04:30 Calcium 8.2 mg/dL (8.4-10.2) L 08/22/21 06:05 Phosphorus 3.30 mg/dL (2.5-4.5) 08/21/21 04:36 Magnesium 2.00 mg/dL (1.7-2.3) 08/21/21 04:36 Medications & Allergies - Medications Allergies/Adverse Reactions: Allergies Penicillins Allergy (Unknown, Verified 08/11/21 17:39) Itching Home Medications: Home Medications Medication Instructions Recorded Confirmed Last Taken Type Albuterol Sulfate [Ventolin Hfa] 2 puff IH Q6H PRN 08/30/18 08/18/21 10/08/18 History Insulin Lispro [HumaLOG VIAL] 0 units SQ AC #1 vial 10/06/18 08/18/21 08/16/21 Rx Cinacalcet [Sensipar] 30 mg PO QDAY 08/08/21 08/18/21 Unknown History Furosemide [Lasix TAB] 80 mg PO QDAY 08/08/21 08/18/21 Unknown History Metoprolol Succinate [Toprol Xl] 25 mg PO DAILY 08/08/21 08/18/21 Unknown History Nortriptyline [Pamelor] 25 mg PO DAILY 08/08/21 08/18/21 Unknown History calcitrioL [Rocaltrol] 0.5 mcg PO QDAY 08/08/21 08/18/21 Unknown History metOLazone [Zaroxolyn] 5 mg PO QDAY 08/08/21 08/18/21 Unknown History Aspirin [Aspirin BABY CHEW TAB] 81 mg PO QDAY 30 Days #30 tab.chew 08/14/21 08/18/21 Unknown Rx AtorvaSTATin [Lipitor] 40 mg PO QHS #90 tablet 08/14/21 08/18/21 Unknown Rx Clopidogrel [Plavix] 75 mg PO QDAY 30 Days #30 tablet 08/14/21 08/18/21 Unknown Rx Hydralazine HCl 50 mg PO BID 30 Days #30 tab 08/14/21 08/18/21 Unknown Rx amLODIPine 5 mg PO QDAY 30 Days #30 tablet 08/14/21 08/18/21 Unknown Rx Active Medications: Generic Name Dose Route Start Last Admin Trade Name Freq PRN Reason Stop Dose Admin Acetaminophen 650 mg 08/16/21 21:28 Acetaminophen 650 Mg Rect Supp NM Q6H PRN Pain MILD(1-3)/Fever >100.5/PÉREZ Amlodipine Besylate 5 mg 08/21/21 12:00 08/21/21 12:59 Amlodipine 5 Mg Tab PO 5 mg QDAY LADAN Administration Lipase/Protease/Amylase 1 each 08/21/21 11:52 Lipase 10,500/Protease 25,000/Amylase 43,750 (Units) Dr [place] FEEDTUBE PRN PRN For Clogged Feeding Tube Atorvastatin Calcium 40 mg 08/21/21 22:00 08/21/21 22:03 Atorvastatin 40 Mg Tab PO 40 mg QHS LADAN Administration Dextrose 0 ml 08/16/21 21:28 08/17/21 16:54 Dextrose 50% In Water (25gm) 50 Ml Syringe IV 10 ml Q30MIN PRN Administration Hypoglycemia Protocol Furosemide 80 mg 08/21/21 12:00 08/21/21 13:01 Furosemide 40 Mg Tab PO 80 mg QDAY LADAN Administration Heparin Sodium (Porcine) 3,000 unit 08/18/21 08:05 08/20/21 15:03 Heparin 10,000 Units/10 Ml Vial IV 3,000 unit TTIO PRN Administration hemodialysis Heparin Sodium (Porcine) 5,000 unit 08/22/21 22:00 Heparin 5,000 Unit/1 Ml Vial SUB-Q Q12HR [facility] Hydralazine HCl 10 mg 08/17/21 04:30 08/21/21 09:48 Hydralazine 20 Mg/1 Ml Inj IV 10 mg Q4HR PRN Administration Hypertension Sodium Chloride 100 mls @ 999 mls/hr 08/18/21 08:05 Nacl 0.9% IV TITO PRN Hypotension Cefepime HCl 2 gm in 100 mls @ 200 mls/hr 08/19/21 10:00 08/21/21 09:47 Cefepime/Ns 2 Gm/100 Ml IV 08/25/21 10:29 200 mls/hr Q24H LADAN Administration Protocol Insulin Human Lispro 0 unit 08/18/21 12:00 08/22/21 06:32 Insulin Lispro 100 Unit/Ml SUB-Q 2 unit Q6HR LADAN Administration Protocol Metoprolol Tartrate 25 mg 08/21/21 12:00 08/21/21 23:08 Metoprolol Tartrate 25 Mg Tab PO 25 mg BID LADAN Administration Naloxone HCl 0.4 mg 08/16/21 20:05 08/16/21 18:53 Naloxone 0.4 Mg/1 Ml Inj IV 0.4 mg Q2MIN PRN Administration Res Rate </= 8 or 02 SAT < 92% Ondansetron HCl 4 mg 08/16/21 21:28 Ondansetron 4 Mg/2 Ml Inj IV Q8H PRN Nausea And Vomiting Pantoprazole Sodium 40 mg 08/19/21 10:00 08/21/21 09:47 Pantoprazole 40 Mg Inj IV 40 mg QDAY LADAN Administration Simple Syrup 15 ml 08/21/21 11:52 Simple Syrup 15 Ml FEEDTUBE PRN PRN Hypoglycemia Simple Syrup 30 ml 08/21/21 11:52 Simple Syrup 15 Ml FEEDTUBE PRN PRN Hypoglycemia Sodium Bicarbonate 325 mg 08/21/21 11:52 Sodium Bicarbonate 325 Mg Tab FEEDTUBE PRN PRN For Clogged Feeding Tube Sodium Chloride 10 ml 08/16/21 22:00 08/21/21 23:00 Sodium Chloride 0.9% 10 Ml Flush Syringe IV 10 ml BID LADAN Administration Sodium Chloride 10 ml 08/16/21 21:28 Sodium Chloride 0.9% 10 Ml Flush Syringe IV PRN PRN LINE FLUSH
[2021-08-22] MEDS: amLODIPine 5 MG TAB PO SCH (17:39)
[2021-08-22] MEDS: FUROSEMIDE 40 MG TAB PO SCH (17:40)
[2021-08-22] MEDS: METOPROLOL TARTRATE 25 MG TAB PO SCH ×2 (17:40→23:02)
[2021-08-22] MEDS: CEFEPIME/NS 2 GM/100 ML 2 GM/100 ML BAG IV SCH (18:00)
[2021-08-22] MEDS: PANTOPRAZOLE 40 MG INJ IV SCH (18:01)
--- NOTE | 2021-08-22 21:56 | XRay Report ---
ABDOMEN 1 VIEW 08/22/2021 INDICATION / CLINICAL INFORMATION: check placement of dobbhoff feeding tube. COMPARISON: 08/21/2021 FINDINGS: TUBES / LINES: Enteric tube terminates within the stomach. Surgical drain is noted within the pelvis. BOWEL GAS PATTERN: No significant abnormality. FREE AIR / EXTRALUMINAL GAS: None seen. ADDITIONAL FINDINGS: No significant additional findings. IMPRESSION: 1. Enteric tube terminating within the stomach. Signer Name: Dimas Sheth DO Signed: 08/22/2021 9:52 PM Workstation Name: [id number]
[2021-08-23 05:20] LABS: Basophils # (Auto) 0.1 K/mm3 (0.0-0.1); Basophils % (Auto) 1.1 % (0.0-1.8); Eosinophils # (Auto) 0.3 K/mm3 (0.0-0.4); Eosinophils % (Auto) 5.1 % (0.0-4.3); Hematocrit 26.5 % (30.3-42.9); Hemoglobin 8.8 gm/dl (10.1-14.3); Lymphocytes % (Auto) 15.1 % (13.4-35.0); Mean Corpuscular HGB Conc 33 % (30-34); Mean Corpuscular Volume 91 fl (79-97); Monocytes # (Auto) 0.7 K/mm3 (0.0-0.8); Monocytes % (Auto) 9.9 % (0.0-7.3); Platelet Count 261 K/mm3 (140-440); Red Blood Count 2.93 M/mm3 (3.65-5.03); Red Cell Distribution Width 19.7 % (13.2-15.2)
[2021-08-23 05:33] LABS: Calcium 8.2 mg/dL (8.4-10.2)
[2021-08-23] MEDS: INSULIN LISPRO 100 UNIT/ML SUB-Q SCH ×4 (06:00→18:28)
--- NOTE | 2021-08-23 07:42 | Progress Note ---
Assessment and Plan Assessment and plan: Assessment and plan: This is a 70-year-old female with HTN, CAD s/p stent, DM, ESRD on HD, calciphylaxis admitted with acute hypoxic respiratory failure, UTI Interval history: This is a 70-year-old female with HTN, DM, ESRD on HD, calciphylaxis who pr esented to the emergency department on 08/16 with altered mental status and decreased responsiveness. Patient was recently admitted to the hospital after possible overdose on Dilaudid after vascular surgery for varicose veins on a Narcan drip. Upon arrival to the emergency department patient was given Narcan without significant improvement and had hypoglycemia into the 200s on initial presentation. Patient was obtunded and subsequently intubated to protect her airway. Work-up in the emergency department included a CXR and CT scan of the head which were unremarkable. Urinalysis revealed UTI patient was started on empiric antibiotics. Patient was admitted to the hospitalist service with consults to nephrology and [facility]. 08/17/21: Pt intubated, CC and nephro consulted, follow cx, cont abx, gurded prognosis 08/18/21: s/p HD today, plan to d/c all sedation and to monitor mental status, f ollow am lab. s/p one unit PRBC today 08/19/21: Patient was extubated today, urine culture resulted with E. coli and Klebsiella pneumoniae, trach aspirate with Pseudomonas aeruginosa however all are sensitive to cefepime which the patient is already on. 08/20: Neurology consulted, MRI brain and EEG pending, patient will be transferred out of the unit with remote telemetry as her H&H is stable. GI may scope the patient after another dialysis session if improvement with mentation. Patient failed speech evaluation and will be started on D10 while n.p.o. 08/21: Patient received MRI brain which showed microvascular angiopathy without evidence of recent territorial infarct. Dobbhoff placed and nutrition consulted for tube feedings. Patient received hemodialysis today. 08/22: Vaginal bleeding noted overnight, H&H is stable. Pelvic ultrasound is ordered will follow results. DC DVT prophylaxis at this time. Patient neurological recovery has been slow. She continues to follow some commands intermittently. However she still is aphasic and unable to communicate when questioned. EEG completed did not demonstrate any findings of seizure activity. Will await neurology final recommendations. ST recommended PEG as patient still at risk for aspiration. GI is already following patient right now but will discuss with them. Overall at this point continuing supportive management and hopeful neurologic recovery. On the last admission patient had taken approximately 6 to 7 days before returning to baseline. Will reassess through the weekend. was updated this afternoon. 08/23: Awaiting remainder of workup. Pelvic ultrasound pending. No signs and symptoms of bleeding this AM. Patient mental status has significantly improved. She is able to answer some questioning and follows all commands. She is drowsy but it appears medication is clearing her system. Will ask ST to re-eval swallowing today. D/w GI yesterday regarding PEG, we both agreed it might be premature for PEG at this point but would re-eval if patient worsened. Will continue supportive management. Avoid all opioid narcotics and sedatives in this patient please Neuro: Metabolic versus toxic encephalopathy -CT head with no acute findings -Avoid delirium -Reorientation as needed -Maintain sleep-wake cycle -Neurology consulted, appreciate recommendations -MRI brain shows no recent territorial infarct -EEG pending Cardio: h/o HTN, CAD s/p stent -resume home hypertensive regimen and adjust as needed -Blood pressure monitor per protocol -As needed hydralazine -Resume home Lipitor -Hold home aspirin, Plavix Respiratory: Acute hypoxic respiratory failure -Patient was intubated 08/16 and extubated on 08/19 -Patient is currently on room air -Pulmonary hygiene -Supplemental oxygen as needed -SPO2 monitoring GI: Hematochezia -GI consulted, appreciate recommendations -Protonix IV -NG tube placed today -Nutrition consulted -Tube feedings started -24-hour -45 -Hold as needed at this time given GI bleed : ESRD on HD, calciphylaxis, hyponatremia, hypochloremia, metabolic acidosis, hypokalemia -Nephrology consulted, appreciate recommendations -HD per nephrology -Renally dose medications -Strict intake and output -Daily weights -Trend BMP -replace electrolytes prn. ID: E. coli and Klebsiella pneumonia UTI, tracheal aspirate with Pseudomonas aeruginosa -Patient is on cefepime -Trend fever and WBC curve Heme: Anemia of chronic disease, GI bleed -S/p 2 units PRBC -Transfuse for less than 7 hemoglobin -Trend CBC -Epogen per nephrology -H/H every 6 - hold lovenox due to vaginal bleeding. Endo: h/o DM -Accu-Cheks every 6 -SSI as needed -Avoid hypoglycemia History Interval history: Patient still appears slightly drowsy on encounter. She remains in restraints and has NG tube in place. This morning she was able to recite her name, the name of her , and able to communicate that she would like to eat. She also followed commands this morning. Hospitalist Physical - Physical exam Narrative exam: - General Apperance Constitutional: comfortable - EENT EENT: PERRL, mucous membranes moist - Respiratory Respiratory: chest non-tender, lungs clear, rhonchi - Cardiovascular Cardiovascular: regular rate, normal S1, normal S2 Extremities: no peripheral edema bilat, no clubbing, cyanosis - Gastrointestinal Gastrointestinal: normoactive bowel sounds - Integumentary Integumentary: normal - Neurologic Cranial nerve examination: PERRL, EOMI, intact Speech examination: sensory aphasia, other Detailed motor examination: grossly full strength in - Constitutional Vitals: Temp Pulse Resp BP Pulse Ox 98.9 F 99 H 18 188/70 96 08/22/21 13:20 08/22/21 23:02 08/22/21 13:20 08/22/21 23:02 08/22/21 13:20 General appearance: Present: well-nourished Results - Labs CBC & Chem 7: 08/23/21 04:00 08/23/21 04:00 Labs: Laboratory Last Values WBC 6.7 K/mm3 (4.5-11.0) 08/23/21 04:00 RBC 2.93 M/mm3 (3.65-5.03) L 08/23/21 04:00 Hgb 8.8 gm/dl (10.1-14.3) L 08/23/21 04:00 Hct 26.5 % (30.3-42.9) L 08/23/21 04:00 MCV 91 fl (79-97) 08/23/21 04:00 MCH 30 pg (28-32) 08/23/21 04:00 MCHC 33 % (30-34) 08/23/21 04:00 RDW 19.7 % (13.2-15.2) H 08/23/21 04:00 Plt Count 261 K/mm3 (140-440) 08/23/21 04:00 Lymph % (Auto) 15.1 % (13.4-35.0) 08/23/21 04:00 [place] % (Auto) 9.9 % (0.0-7.3) H 08/23/21 04:00 Eos % (Auto) 5.1 % (0.0-4.3) H 08/23/21 04:00 Baso % (Auto) 1.1 % (0.0-1.8) 08/23/21 04:00 Lymph # (Auto) 1.0 K/mm3 (1.2-5.4) L 08/23/21 04:00 [place] # (Auto) 0.7 K/mm3 (0.0-0.8) 08/23/21 04:00 Eos # (Auto) 0.3 K/mm3 (0.0-0.4) 08/23/21 04:00 Baso # (Auto) 0.1 K/mm3 (0.0-0.1) 08/23/21 04:00 Seg Neutrophils % 68.8 % (40.0-70.0) 08/23/21 04:00 Seg Neutrophils # 4.6 K/mm3 (1.8-7.7) 08/23/21 04:00 PT 13.9 Sec. (12.2-14.9) 08/17/21 04:41 INR 0.96 (0.87-1.13) 08/17/21 04:41 ABG pH 7.373 (7.320-7.450) 08/18/21 04:30 POC ABG pCO2 33.4 mmHg (32.0-48.0) 08/18/21 04:30 ABG pCO2 28.7 mm Hg 08/17/21 03:08 POC ABG pO2 124.7 mmHg (83-108) H 08/18/21 04:30 ABG pO2 45.2 mm Hg (80.0-90.0) L 08/17/21 03:08 POC ABG HCO3 19.0 08/18/21 04:30 ABG HCO3 23.2 mmol/L (20.0-26.0) 08/17/21 03:08 ABG O2 Saturation 98.4 (0-100) 08/18/21 04:30 ABG O2 Content 9.8 (0.0-44) 08/17/21 03:08 POC ABG Base Excess -5.5 08/18/21 04:30 ABG Base Excess 0.8 mmol/L (-2.0-3.0) 08/17/21 03:08 ABG Hemoglobin 10.1 (12.0-17.5) L 08/18/21 04:30 ABG Oxyhemoglobin 98.1 (94-98) H 08/18/21 04:30 ABG Carboxyhemoglobin 1.5 % (0.0-5.0) 08/17/21 03:08 ABG Methemoglobin 0.3 (0.0-1.5) 08/18/21 04:30 ABG Sodium 135.5 mmol/L (136.0-145.0) L 08/18/21 04:30 ABG Potassium 4.0 mmol/L (3.40-4.50) 08/18/21 04:30 ABG Chloride 106.0 mmol/L (98-107) 08/18/21 04:30 ABG Glucose 80 mg/dL (65-95) 08/18/21 04:30 Oxyhemoglobin 79.6 % (95.0-99.0) L 08/17/21 03:08 Carboxyhemoglobin 0 (0.5-1.5) L 08/18/21 04:30 FiO2 45 % 08/17/21 03:08 FiO2 % 30.0 08/18/21 04:30 Sodium 140 mmol/L (137-145) 08/23/21 04:00 Potassium 3.4 mmol/L (3.6-5.0) L 08/23/21 04:00 Chloride 101.8 mmol/L (98-107) 08/23/21 04:00 Carbon Dioxide 27 mmol/L (22-30) 08/23/21 04:00 Anion Gap 15 mmol/L 08/23/21 04:00 BUN 14 mg/dL (7-17) 08/23/21 04:00 Creatinine 3.1 mg/dL (0.6-1.2) H 08/23/21 04:00 Estimated GFR 15 ml/min 08/23/21 04:00 BUN/Creatinine Ratio 5 % 08/23/21 04:00 Glucose 174 mg/dL (65-100) H 08/23/21 04:00 POC Glucose 138 mg/dL (70-105) H 08/22/21 23:07 Lactic Acid 1.00 mmol/L (0.7-2.0) 08/16/21 22:44 Calcium 8.2 mg/dL (8.4-10.2) L 08/23/21 04:00 Phosphorus 3.30 mg/dL (2.5-4.5) 08/21/21 04:36 Magnesium 2.00 mg/dL (1.7-2.3) 08/21/21 04:36 Total Bilirubin 0.20 mg/dL (0.1-1.2) 08/18/21 04:15 AST 23 units/L (5-40) 08/18/21 04:15 ALT 11 units/L (7-56) 08/18/21 04:15 Alkaline Phosphatase 144 units/L (35-129) H 08/18/21 04:15 Total Protein 6.1 g/dL (6.3-8.2) L 08/18/21 04:15 Albumin 1.6 g/dL (3.9-5) L 08/18/21 04:15 Albumin/Globulin Ratio 0.4 % 08/18/21 04:15 Arterial Blood Glucose 80 mg/dL (65-95) 08/18/21 04:30 Urine Color Yellow (Yellow) 08/16/21 08:00 Urine Turbidity Turbid (Clear) 08/16/21 08:00 Urine pH 6.0 (5.0-7.0) 08/16/21 08:00 Ur Specific [place] 1.010 (1.003-1.030) 08/16/21 08:00 Urine Protein >500 mg/dL (Negative) 08/16/21 08:00 Urine Glucose (UA) Negative mg/dL (Negative) 08/16/21 08:00 Urine Ketones Negative mg/dL (Negative) 08/16/21 08:00 Urine Blood Moderate (Negative) A 08/16/21 08:00 Urine Nitrite Negative (Negative) 08/16/21 08:00 Ur Reducing Substances Not Reportable 08/16/21 08:00 Urine Bilirubin Negative (Negative) 08/16/21 08:00 Urine Ictotest Not Reportable 08/16/21 08:00 Urine Urobilinogen < 2.0 mg/dL (<2.0) 08/16/21 08:00 Ur Leukocyte Esterase Large (Negative) 08/16/21 08:00 Urine WBC (Auto) > 182.0 /HPF (0.0-6.0) H 08/16/21 08:00 Urine RBC (Auto) 17.0 /HPF (0.0-6.0) 08/16/21 08:00 U Epithel Cells (Auto) 32.0 /HPF (0-13.0) H 08/16/21 08:00 Urine Bacteria (Auto) 4+ /HPF (Negative) 08/16/21 08:00 Urine Mucus 1+ /HPF 08/16/21 08:00 Urine Yeast (Budding) 2+ /HPF 08/16/21 08:00 Nasal Screen MRSA (PCR) Negative (Negative) 08/20/21 03:50 Urine Opiates Screen Negative 08/16/21 20:58 Urine Methadone Screen Negative 08/16/21 20:58 Ur Barbiturates Screen Negative 08/16/21 20:58 Ur Phencyclidine Scrn Negative 08/16/21 20:58 Ur Amphetamines Screen Negative 08/16/21 20:58 U Benzodiazepines Scrn Negative 08/16/21 20:58 Urine Cocaine Screen Negative 08/16/21 20:58 U Marijuana (THC) Screen Negative 08/16/21 20:58 Drugs of Abuse Note Disclamer 08/16/21 20:58 Plasma/Serum Alcohol < 0.01 % (0-0.07) 08/16/21 20:06 Blood Type B POSITIVE 08/18/21 20:50 Antibody Screen Negative 08/18/21 20:50 Crossmatch See Detail 08/18/21 20:50 Noriega/IV: Voiding Method Indwelling Catheter Active Medications - Current Medications Current Medications: Generic Name Dose Route Start Last Admin Trade Name Freq PRN Reason Stop Dose Admin Acetaminophen 650 mg 08/16/21 21:28 Acetaminophen 650 Mg Rect Supp IN Q6H PRN Pain MILD(1-3)/Fever >100.5/PÉREZ Amlodipine Besylate 5 mg 08/21/21 12:00 08/22/21 17:39 Amlodipine 5 Mg Tab PO Not Given QDAY LADAN Lipase/Protease/Amylase 1 each 08/21/21 11:52 Lipase 10,500/Protease 25,000/Amylase 43,750 (Units) Dr [place] FEEDTUBE PRN PRN For Clogged Feeding Tube Atorvastatin Calcium 40 mg 08/21/21 22:00 08/22/21 23:01 Atorvastatin 40 Mg Tab PO 40 mg QHS LADAN Administration Dextrose 0 ml 08/16/21 21:28 08/17/21 16:54 Dextrose 50% In Water (25gm) 50 Ml Syringe IV 10 ml Q30MIN PRN Administration Hypoglycemia Protocol Furosemide 80 mg 08/21/21 12:00 08/22/21 17:40 Furosemide 40 Mg Tab PO Not Given QDAY LADAN Heparin Sodium (Porcine) 3,000 unit 08/18/21 08:05 08/20/21 15:03 Heparin 10,000 Units/10 Ml Vial IV 3,000 unit TITO PRN Administration hemodialysis Heparin Sodium (Porcine) 5,000 unit 08/22/21 22:00 Heparin 5,000 Unit/1 Ml Vial SUB-Q Q12HR LADAN Hydralazine HCl 10 mg 08/17/21 04:30 08/21/21 09:48 Hydralazine 20 Mg/1 Ml Inj IV 10 mg Q4HR PRN Administration Hypertension Sodium Chloride 100 mls @ 999 mls/hr 08/18/21 08:05 Nacl 0.9% IV TITO PRN Hypotension Cefepime HCl 2 gm in 100 mls @ 200 mls/hr 08/19/21 10:00 08/22/21 18:00 Cefepime/Ns 2 Gm/100 Ml IV 08/25/21 10:29 200 mls/hr Q24H LADAN Administration Protocol Insulin Human Lispro 0 unit 08/18/21 12:00 08/22/21 18:16 Insulin Lispro 100 Unit/Ml SUB-Q 2 unit Q6HR LADAN Administration Protocol Metoprolol Tartrate 25 mg 08/21/21 12:00 08/22/21 23:02 Metoprolol Tartrate 25 Mg Tab PO 25 mg BID LADAN Administration Naloxone HCl 0.4 mg 08/16/21 20:05 08/16/21 18:53 Naloxone 0.4 Mg/1 Ml Inj IV 0.4 mg Q2MIN PRN Administration Res Rate </= 8 or 02 SAT < 92% Ondansetron HCl 4 mg 08/16/21 21:28 Ondansetron 4 Mg/2 Ml Inj IV Q8H PRN Nausea And Vomiting Pantoprazole Sodium 40 mg 08/19/21 10:00 08/22/21 18:01 Pantoprazole 40 Mg Inj IV 40 mg QDAY LADAN Administration Simple Syrup 15 ml 08/21/21 11:52 Simple Syrup 15 Ml FEEDTUBE PRN PRN Hypoglycemia Simple Syrup 30 ml 08/21/21 11:52 Simple Syrup 15 Ml FEEDTUBE PRN PRN Hypoglycemia Sodium Bicarbonate 325 mg 08/21/21 11:52 Sodium Bicarbonate 325 Mg Tab FEEDTUBE PRN PRN For Clogged Feeding Tube Sodium Chloride 10 ml 08/16/21 22:00 08/22/21 18:00 Sodium Chloride 0.9% 10 Ml Flush Syringe IV 10 ml BID LADAN Administration Sodium Chloride 10 ml 08/16/21 21:28 Sodium Chloride 0.9% 10 Ml Flush Syringe IV PRN PRN LINE FLUSH Nutrition/Malnutrition Assess - Dietary Evaluation Nutrition/Malnutrition Findings: Nutrition Notes Start: 08/17/21 10:25 Freq: Status: Active Protocol: Document 08/21/21 11:36 GB (Rec: 08/21/21 11:51 GB [id number]) Nutrition Notes Initial or Follow up Reassessment Current Diagnosis CKD (stage V CKD),Coronary Artery Disease,Diabetes, Hypertension,Heart Failure, Respiratory Failure Other Pertinent Diagnosis UTI, on HD, encephalopathy, drug OD Current Diet NPO x1day Labs/Tests 08/21: Creatinine 3.2 ( improving), glucose 152 ( fluctuating in stable range), Ca 8.1 (improving) Pertinent Medications D5(PRN) Height 5 ft 8 in Weight 91 kg [place] Body Weight (kg) 63.63 BMI 30.4 Weight change and time frame no change reported 08/21: no new weights recorded at time of assessment Weight Status Obese Subjective/Other Information MD consult for diet education - not a candidate for education r/t unable to comprehend MD consult for write/manage tube feeding MD notes 08/21: abdominal Xray ordered. RN discussion: dobhoff to be placed today. Last BM: 08/20 RD: to place TF order. Start once gastric tube is verified. Percent of energy/protein needs met: 0% per NPO TF order to be placed and once at goal will meet 75% or greater of EEN Burn Absent Trauma Absent GI Symptoms None Difficulty In Swallowing Food Allergy No Skin Integrity/Comment wounds DM ulcers LLE, RLE Current % PO Other Minimum of two criteria No #2 Nutrition Diagnosis Food and nutrition-related knowledge deficit Comments: 08/21: pt not a candidate for education. Does not respond to Yes/No questions. Eyes open, awake, and looks at person speaking, no responses for comprehension. Etiology HD dependent, DM As Evidenced by Signs and Symptoms MD consult for nutrition education, previously intubated/sedated Diagnosis Progress(for reassessment Resolved documentation) #1 Nutrition Diagnosis Inadequate oral intake Comments: 08/19: pt extubated 10am, diet to start 08/21: NPO x 1 day. TF consult to start today once dobhoff placed/verified. PIG BREEDER: bolus holding, failure to initiate swallow. - remain NPO - PIG BREEDER following Etiology drug OD, ARF As Evidenced by Signs and Symptoms pt on vent and unable to consume PO Diagnosis Progress(for reassessment Continues documentation) Is patient on ventilator? No Is Patient Ambulatory and/or Out of Bed No REE-([facility]-confined to bed) 1768.020 Kcal/Kg value to use for calculation 20 Approximate Energy Requirements Using 1820 kcal/Kg Calculation Used for Recommendations Kcal/kg Additional Notes Protein: 1-1.2g/kg @ 91k- 109g Fluid: 1 ml/kcal or per MD Nutrition Intervention Change Diet Order: Advance to consistent carbohydrate Per PIG BREEDER swallow evaluation results. Nutrition Support: Nepro @ 42ml/hr. Start rate 22ml/hr. Increase 10ml/8hr as tolerated. Flush: 146ml/4hr. Or per MD Total free water/day: TF@goal + flush = 1600ml Kcal 1,800 Protein (gm) 81 Carbohydrates (gm) 161 Fat (gm) 96 Fluid (mL) 727 Fiber (gm) 13 % RDI: 100%kcal/89%pro Education Handouts Provided Not a candidate for education r/t alert but not responsive. Goal #1 Diet started and advanced to consistent carbohydrate by f/u . 08/21: TF to start r/t PIG BREEDER swallow eval not passed and recommended for NPO to continue Goal #2 TF (Nepro) to start by f/u. Goal #3 TF (nepro) at goal (42ml/hr) by f/u and tolerated. Follow-Up By: 08/25/21 Additional Comments F/U: TF at goal, PIG BREEDER swallow eval results
[2021-08-23] MEDS ORDERED: POTASSIUM CHLORIDE 20 MEQ PACKET PO ONE (09:02)
[2021-08-23] MEDS: METOPROLOL TARTRATE 25 MG TAB PO SCH ×2 (10:00→21:36)
[2021-08-23] MEDS: HEPARIN 5,000 UNIT/1 ML VIAL SUB-Q SCH ×2 (10:00→21:36)
[2021-08-23] MEDS: PANTOPRAZOLE 40 MG INJ IV SCH (10:00)
[2021-08-23] MEDS: amLODIPine 5 MG TAB PO SCH (10:00)
[2021-08-23] MEDS: FUROSEMIDE 40 MG TAB PO SCH (10:00)
[2021-08-23] MEDS: CEFEPIME/NS 2 GM/100 ML 2 GM/100 ML BAG IV SCH (10:00)
--- NOTE | 2021-08-23 11:00 | Progress Note ---
Assessment and Plan Assessment and Plan - Patient Problems # Encephalopathy on intial presentation was intubated and sedated -08/19 she is extubated not following command --improved -moves all limbs -? Aphasia Vs seizure -- today she is with slight speech input and comprehension improved -ASA and Plavix on hold due to GI bleed. -Lipitor 40 mg daily -Possibly secondary to underlying infection. -Urinalysis-reveals UTI. -Patient placed on empiric IV antibiotics and IV fluid. # Diabetes -Patient placed on sliding scale insulin. -We will monitor Accu-Cheks closely.- # HTN (hypertension) -We will resume routine home medications once able to tolerate p.o. oral intake. -Meanwhile we will place on IV hydralazine as needed for blood pressure control # ESRD (end stage renal disease) -We will place consult to nephrology for evaluation and for dialysis during this admission. -BUN/Cr#29/4.8 # Urinary tract infection -Patient commenced on empiric IV antibiotics. # DVT prophylaxis -Patient placed on subcutaneous heparin. # Full code status -Patient is full code. Suggest Speech therapy,and PT therapy ,swallow evaluate -restart ASA when possible -lipitor 40 mg daily -ESRD on dialysis will sign off Subjective Date of service: 08/23/21 Principal diagnosis: GIB Interval history: alert more interactive follow command , slight speech out put today knows her name No focal weakness is appreciated Vital are stable BUN/Cr#16/3.2 MRI brain showed no acute event and EEG showed mild diffuse slowing no epileptiform discharges is noted. Had NG tube ? speech and swallow evaluation? PT evaluation Objective - Vital Sign Vital Signs - 12hr 08/22/21 08/23/21 23:02 00:00 Temperature 98.1 F Pulse Rate 99 H 99 H Respiratory 20 Rate Blood Pressure 188/70 Blood Pressure 188/70 [Right] O2 Sat by Pulse 96 Oximetry - General Apperance Constitutional: comfortable - EENT EENT: PERRL, mucous membranes moist - Respiratory Respiratory: lungs clear, rhonchi - Cardiovascular Cardiovascular: regular rate, normal S1, normal S2 Extremities: no peripheral edema bilat, no clubbing, cyanosis - Gastrointestinal Gastrointestinal: normoactive bowel sounds - Integumentary Integumentary: normal - Neurologic Cranial nerve examination: PERRL, EOMI, intact Speech examination: other (improved speech out put today ,comprehension is intact ) - Laboratory Findings CBC and BMP: 08/23/21 04:00 08/23/21 04:00 Abnormal Lab Findings: Abnormal Labs 08/16/21 08/16/21 08/16/21 08:00 20:06 20:06 WBC RBC 3.24 L Hgb Hct MCV 98 H RDW 17.8 H [place] % (Auto) Eos % (Auto) Lymph # (Auto) [place] # (Auto) Seg Neutrophils % ABG pH POC ABG pCO2 POC ABG pO2 ABG pO2 ABG O2 Saturation ABG Hemoglobin ABG Oxyhemoglobin ABG Sodium ABG Glucose Oxyhemoglobin Carboxyhemoglobin Sodium Potassium Chloride Carbon Dioxide BUN 35 H Creatinine 6.1 H Glucose 175 H POC Glucose Calcium Magnesium Alkaline Phosphatase Total Protein Albumin Arterial Blood Glucose Urine Blood Moderate A Urine WBC (Auto) > 182.0 H U Epithel Cells (Auto) 32.0 H Crossmatch 08/16/21 08/17/21 08/17/21 20:35 03:08 04:41 WBC RBC 2.89 L Hgb 8.9 L Hct 28.3 L MCV 98 H RDW 17.5 H [place] % (Auto) 8.3 H Eos % (Auto) Lymph # (Auto) [place] # (Auto) 0.9 H Seg Neutrophils % 71.2 H ABG pH 7.534 H 7.525 H POC ABG pCO2 POC ABG pO2 ABG pO2 248.5 H 45.2 L ABG O2 Saturation 99.4 H 81.2 L ABG Hemoglobin 10.1 L 8.8 L ABG Oxyhemoglobin ABG Sodium ABG Glucose Oxyhemoglobin 79.6 L Carboxyhemoglobin Sodium Potassium Chloride Carbon Dioxide BUN Creatinine Glucose POC Glucose Calcium Magnesium Alkaline Phosphatase Total Protein Albumin Arterial Blood Glucose Urine Blood Urine WBC (Auto) U Epithel Cells (Auto) Crossmatch 08/17/21 08/17/21 08/17/21 04:41 04:56 07:50 WBC RBC Hgb Hct MCV RDW [place] % (Auto) Eos % (Auto) Lymph # (Auto) [place] # (Auto) Seg Neutrophils % ABG pH 7.505 H POC ABG pCO2 28.4 L POC ABG pO2 184.8 H ABG pO2 ABG O2 Saturation ABG Hemoglobin 10.0 L ABG Oxyhemoglobin 99.0 H ABG Sodium 135.0 L ABG Glucose 142 H Oxyhemoglobin Carboxyhemoglobin 0.3 L Sodium Potassium Chloride Carbon Dioxide 21 L BUN 39 H Creatinine 6.1 H Glucose 147 H POC Glucose 152 H Calcium 7.8 L Magnesium Alkaline Phosphatase Total Protein Albumin Arterial Blood Glucose 142 H Urine Blood Urine WBC (Auto) U Epithel Cells (Auto) Crossmatch 08/17/21 08/18/21 08/18/21 11:47 04:15 04:15 WBC RBC Hgb 9.3 L Hct 29.4 L MCV RDW [place] % (Auto) Eos % (Auto) Lymph # (Auto) [place] # (Auto) Seg Neutrophils % ABG pH POC ABG pCO2 POC ABG pO2 ABG pO2 ABG O2 Saturation ABG Hemoglobin ABG Oxyhemoglobin ABG Sodium ABG Glucose Oxyhemoglobin Carboxyhemoglobin Sodium Potassium Chloride Carbon Dioxide 17 L BUN 40 H Creatinine 6.0 H Glucose POC Glucose 108 H Calcium 7.9 L Magnesium Alkaline Phosphatase 144 H Total Protein 6.1 L Albumin 1.6 L Arterial Blood Glucose Urine Blood Urine WBC (Auto) U Epithel Cells (Auto) Crossmatch 08/18/21 08/18/21 08/18/21 04:30 20:42 20:49 WBC RBC Hgb 6.9 L Hct 21.5 L D MCV RDW [place] % (Auto) Eos % (Auto) Lymph # (Auto) [place] # (Auto) Seg Neutrophils % ABG pH POC ABG pCO2 POC ABG pO2 124.7 H ABG pO2 ABG O2 Saturation ABG Hemoglobin 10.1 L ABG Oxyhemoglobin 98.1 H ABG Sodium 135.5 L ABG Glucose Oxyhemoglobin Carboxyhemoglobin 0 L Sodium Potassium Chloride Carbon Dioxide BUN Creatinine Glucose POC Glucose 133 H Calcium Magnesium Alkaline Phosphatase Total Protein Albumin Arterial Blood Glucose Urine Blood Urine WBC (Auto) U Epithel Cells (Auto) Crossmatch 08/18/21 08/19/21 08/19/21 20:50 05:38 08:06 WBC 21.3 H RBC 2.55 L Hgb 7.5 L Hct 23.4 L MCV RDW 22.1 H [place] % (Auto) Eos % (Auto) Lymph # (Auto) [place] # (Auto) Seg Neutrophils % ABG pH POC ABG pCO2 POC ABG pO2 ABG pO2 ABG O2 Saturation ABG Hemoglobin ABG Oxyhemoglobin ABG Sodium ABG Glucose Oxyhemoglobin Carboxyhemoglobin Sodium Potassium Chloride Carbon Dioxide BUN Creatinine Glucose POC Glucose 147 H Calcium Magnesium Alkaline Phosphatase Total Protein Albumin Arterial Blood Glucose Urine Blood Urine WBC (Auto) U Epithel Cells (Auto) Crossmatch See Detail 08/19/21 08/19/21 08/19/21 08:06 11:09 17:25 WBC RBC Hgb Hct MCV RDW [place] % (Auto) Eos % (Auto) Lymph # (Auto) [place] # (Auto) Seg Neutrophils % ABG pH POC ABG pCO2 POC ABG pO2 ABG pO2 ABG O2 Saturation ABG Hemoglobin ABG Oxyhemoglobin ABG Sodium ABG Glucose Oxyhemoglobin Carboxyhemoglobin Sodium 136 L Potassium Chloride 97.8 L Carbon Dioxide 19 L BUN 23 H Creatinine 4.0 H Glucose 172 H POC Glucose 165 H 115 H Calcium 7.1 L Magnesium Alkaline Phosphatase Total Protein Albumin Arterial Blood Glucose Urine Blood Urine WBC (Auto) U Epithel Cells (Auto) Crossmatch 08/19/21 08/19/21 08/20/21 22:25 23:38 05:16 WBC 14.0 H RBC 2.78 L Hgb 8.7 L 8.4 L Hct 27.5 L 24.8 L MCV RDW 19.8 H [place] % (Auto) Eos % (Auto) Lymph # (Auto) [place] # (Auto) Seg Neutrophils % ABG pH POC ABG pCO2 POC ABG pO2 ABG pO2 ABG O2 Saturation ABG Hemoglobin ABG Oxyhemoglobin ABG Sodium ABG Glucose Oxyhemoglobin Carboxyhemoglobin Sodium Potassium Chloride Carbon Dioxide BUN Creatinine Glucose POC Glucose 117 H Calcium Magnesium Alkaline Phosphatase Total Protein Albumin Arterial Blood Glucose Urine Blood Urine WBC (Auto) U Epithel Cells (Auto) Crossmatch 08/20/21 08/20/21 08/20/21 05:16 05:30 08:32 WBC RBC Hgb 9.2 L Hct 28.7 L MCV RDW [place] % (Auto) Eos % (Auto) Lymph # (Auto) [place] # (Auto) Seg Neutrophils % ABG pH POC ABG pCO2 POC ABG pO2 ABG pO2 ABG O2 Saturation ABG Hemoglobin ABG Oxyhemoglobin ABG Sodium ABG Glucose Oxyhemoglobin Carboxyhemoglobin Sodium Potassium Chloride Carbon Dioxide 21 L BUN 29 H Creatinine 4.8 H Glucose 125 H POC Glucose 118 H Calcium 7.6 L Magnesium 1.50 L Alkaline Phosphatase Total Protein Albumin Arterial Blood Glucose Urine Blood Urine WBC (Auto) U Epithel Cells (Auto) Crossmatch 08/20/21 08/20/21 08/20/21 12:10 16:17 17:59 WBC RBC Hgb 9.6 L Hct 29.4 L MCV RDW [place] % (Auto) Eos % (Auto) Lymph # (Auto) [place] # (Auto) Seg Neutrophils % ABG pH POC ABG pCO2 POC ABG pO2 ABG pO2 ABG O2 Saturation ABG Hemoglobin ABG Oxyhemoglobin ABG Sodium ABG Glucose Oxyhemoglobin Carboxyhemoglobin Sodium Potassium Chloride Carbon Dioxide BUN Creatinine Glucose POC Glucose 141 H 138 H Calcium Magnesium Alkaline Phosphatase Total Protein Albumin Arterial Blood Glucose Urine Blood Urine WBC (Auto) U Epithel Cells (Auto) Crossmatch 08/21/21 08/21/21 08/21/21 00:01 04:36 04:36 WBC RBC 3.00 L Hgb 8.7 L Hct 26.9 L MCV RDW 20.6 H [place] % (Auto) Eos % (Auto) Lymph # (Auto) [place] # (Auto) Seg Neutrophils % ABG pH POC ABG pCO2 POC ABG pO2 ABG pO2 ABG O2 Saturation ABG Hemoglobin ABG Oxyhemoglobin ABG Sodium ABG Glucose Oxyhemoglobin Carboxyhemoglobin Sodium Potassium Chloride Carbon Dioxide 21 L BUN Creatinine 3.2 H Glucose 152 H POC Glucose 144 H Calcium 8.1 L Magnesium Alkaline Phosphatase Total Protein Albumin Arterial Blood Glucose Urine Blood Urine WBC (Auto) U Epithel Cells (Auto) Crossmatch 08/21/21 08/21/21 08/21/21 06:44 11:36 23:36 WBC RBC Hgb Hct MCV RDW [place] % (Auto) Eos % (Auto) Lymph # (Auto) [place] # (Auto) Seg Neutrophils % ABG pH POC ABG pCO2 POC ABG pO2 ABG pO2 ABG O2 Saturation ABG Hemoglobin ABG Oxyhemoglobin ABG Sodium ABG Glucose Oxyhemoglobin Carboxyhemoglobin Sodium Potassium Chloride Carbon Dioxide BUN Creatinine Glucose POC Glucose 136 H 144 H 173 H Calcium Magnesium Alkaline Phosphatase Total Protein Albumin Arterial Blood Glucose Urine Blood Urine WBC (Auto) U Epithel Cells (Auto) Crossmatch 08/22/21 08/22/21 08/22/21 05:19 06:05 06:05 WBC RBC 2.79 L Hgb 8.2 L Hct 24.8 L MCV RDW 19.7 H [place] % (Auto) Eos % (Auto) Lymph # (Auto) [place] # (Auto) Seg Neutrophils % ABG pH POC ABG pCO2 POC ABG pO2 ABG pO2 ABG O2 Saturation ABG Hemoglobin ABG Oxyhemoglobin ABG Sodium ABG Glucose Oxyhemoglobin Carboxyhemoglobin Sodium Potassium 3.4 L Chloride Carbon Dioxide BUN 24 H Creatinine 4.6 H Glucose 187 H POC Glucose 158 H Calcium 8.2 L Magnesium Alkaline Phosphatase Total Protein Albumin Arterial Blood Glucose Urine Blood Urine WBC (Auto) U Epithel Cells (Auto) Crossmatch 08/22/21 08/22/21 08/23/21 18:06 23:07 04:00 WBC RBC Hgb Hct MCV RDW [place] % (Auto) Eos % (Auto) Lymph # (Auto) [place] # (Auto) Seg Neutrophils % ABG pH POC ABG pCO2 POC ABG pO2 ABG pO2 ABG O2 Saturation ABG Hemoglobin ABG Oxyhemoglobin ABG Sodium ABG Glucose Oxyhemoglobin Carboxyhemoglobin Sodium Potassium 3.4 L Chloride Carbon Dioxide BUN Creatinine 3.1 H Glucose 174 H POC Glucose 183 H 138 H Calcium 8.2 L Magnesium Alkaline Phosphatase Total Protein Albumin Arterial Blood Glucose Urine Blood Urine WBC (Auto) U Epithel Cells (Auto) Crossmatch 08/23/21 04:00 WBC RBC 2.93 L Hgb 8.8 L Hct 26.5 L MCV RDW 19.7 H [place] % (Auto) 9.9 H Eos % (Auto) 5.1 H Lymph # (Auto) 1.0 L [place] # (Auto) Seg Neutrophils % ABG pH POC ABG pCO2 POC ABG pO2 ABG pO2 ABG O2 Saturation ABG Hemoglobin ABG Oxyhemoglobin ABG Sodium ABG Glucose Oxyhemoglobin Carboxyhemoglobin Sodium Potassium Chloride Carbon Dioxide BUN Creatinine Glucose POC Glucose Calcium Magnesium Alkaline Phosphatase Total Protein Albumin Arterial Blood Glucose Urine Blood Urine WBC (Auto) U Epithel Cells (Auto) Crossmatch
--- NOTE | 2021-08-23 12:43 | Progress Note ---
Assessment and Plan 1. ESRD: Patient is on maintenance HD, MWF schedule. Patient was switched to hemodialysis about 2 months ago 2/2 calciphylaxis. Meds dosage based on GFR. Last outpatient HD ?08/15. Hemodialysis: 08/18, 08/20, 08/22. 2. FEN: Mild anion-gap metabolic acidosis, on HD. Monitor lytes and volume status. 3. Acute metabolic encephalopathy, POA: ?2/[address] head negative. Followed by Neuro. Monitor. 4. H/o CAD s/p stent. Echo; EF 60%, LVH. 5. Anemia: Epogen with HD. 6. HTN: Monitor BP. 7. Type 2 DM. Subjective: Patient was seen and examined at the bedside. Examination: General appearance: well-developed, well-nourished, appears stated age HEENT: ATNC, pupils equal Neck: trachea midline Respiratory: Clear to Auscultation Cardiology: regular, S1S2, no murmur Gastrointestinal: normoactive bowel sounds, not tender, PD catheter noted Integumentary: b/l LE dressing noted Neurologic: lethargic, non-verbal, not following any command Ext: no edema Hemodialysis access: R IJ tunnel catheter Subjective Date of service: 08/23/21 Principal diagnosis: GIB Objective - Vital Signs Vital signs: Vital Signs - 12hr 08/23/21 11:56 Temperature 99.0 F Pulse Rate 100 H Respiratory 18 Rate Blood Pressure 147/73 O2 Sat by Pulse 91 Oximetry - Lab 08/23/21 04:00 08/23/21 04:00 Most recent lab results ABG pH 7.373 (7.320-7.450) 08/18/21 04:30 ABG pCO2 28.7 mm Hg 08/17/21 03:08 ABG pO2 45.2 mm Hg (80.0-90.0) L 08/17/21 03:08 ABG HCO3 23.2 mmol/L (20.0-26.0) 08/17/21 03:08 ABG O2 Saturation 98.4 (0-100) 08/18/21 04:30 Calcium 8.2 mg/dL (8.4-10.2) L 08/23/21 04:00 Phosphorus 3.30 mg/dL (2.5-4.5) 08/21/21 04:36 Magnesium 2.00 mg/dL (1.7-2.3) 08/21/21 04:36 Medications & Allergies - Medications Allergies/Adverse Reactions: Allergies Penicillins Allergy (Unknown, Verified 08/11/21 17:39) Itching Home Medications: Home Medications Medication Instructions Recorded Confirmed Last Taken Type Albuterol Sulfate [Ventolin Hfa] 2 puff IH Q6H PRN 08/30/18 08/18/21 10/08/18 History Insulin Lispro [HumaLOG VIAL] 0 units SQ AC #1 vial 10/06/18 08/18/21 08/16/21 Rx Cinacalcet [Sensipar] 30 mg PO QDAY 08/08/21 08/18/21 Unknown History Furosemide [Lasix TAB] 80 mg PO QDAY 08/08/21 08/18/21 Unknown History Metoprolol Succinate [Toprol Xl] 25 mg PO DAILY 08/08/21 08/18/21 Unknown History Nortriptyline [Pamelor] 25 mg PO DAILY 08/08/21 08/18/21 Unknown History calcitrioL [Rocaltrol] 0.5 mcg PO QDAY 08/08/21 08/18/21 Unknown History metOLazone [Zaroxolyn] 5 mg PO QDAY 08/08/21 08/18/21 Unknown History Aspirin [Aspirin BABY CHEW TAB] 81 mg PO QDAY 30 Days #30 tab.chew 08/14/21 08/18/21 Unknown Rx AtorvaSTATin [Lipitor] 40 mg PO QHS #90 tablet 08/14/21 08/18/21 Unknown Rx Clopidogrel [Plavix] 75 mg PO QDAY 30 Days #30 tablet 08/14/21 08/18/21 Unknown Rx Hydralazine HCl 50 mg PO BID 30 Days #30 tab 08/14/21 08/18/21 Unknown Rx amLODIPine 5 mg PO QDAY 30 Days #30 tablet 08/14/21 08/18/21 Unknown Rx Active Medications: Generic Name Dose Route Start Last Admin Trade Name Freq PRN Reason Stop Dose Admin Acetaminophen 650 mg 08/16/21 21:28 Acetaminophen 650 Mg Rect Supp IN Q6H PRN Pain MILD(1-3)/Fever >100.5/PÉREZ Amlodipine Besylate 5 mg 08/21/21 12:00 08/23/21 10:00 Amlodipine 5 Mg Tab PO 5 mg QDAY LADAN Administration Lipase/Protease/Amylase 1 each 08/21/21 11:52 Lipase 10,500/Protease 25,000/Amylase 43,750 (Units) Dr [place] FEEDTUBE PRN PRN For Clogged Feeding Tube Atorvastatin Calcium 40 mg 08/21/21 22:00 08/22/21 23:01 Atorvastatin 40 Mg Tab PO 40 mg QHS LADAN Administration Dextrose 0 ml 08/16/21 21:28 08/17/21 16:54 Dextrose 50% In Water (25gm) 50 Ml Syringe IV 10 ml Q30MIN PRN Administration Hypoglycemia Protocol Furosemide 40 mg 08/23/21 07:46 08/23/21 10:00 Furosemide 40 Mg Tab PO 40 mg QDAY LADAN Administration Heparin Sodium (Porcine) 3,000 unit 08/18/21 08:05 08/20/21 15:03 Heparin 10,000 Units/10 Ml Vial IV 3,000 unit TITO PRN Administration hemodialysis Heparin Sodium (Porcine) 5,000 unit 08/22/21 22:00 08/23/21 10:00 Heparin 5,000 Unit/1 Ml Vial SUB-Q 5,000 unit Q12HR LADAN Administration Hydralazine HCl 10 mg 08/17/21 04:30 08/21/21 09:48 Hydralazine 20 Mg/1 Ml Inj IV 10 mg Q4HR PRN Administration Hypertension Sodium Chloride 100 mls @ 999 mls/hr 08/18/21 08:05 Nacl 0.9% IV TITO PRN Hypotension Cefepime HCl 2 gm in 100 mls @ 200 mls/hr 08/19/21 10:00 08/23/21 10:00 Cefepime/Ns 2 Gm/100 Ml IV 08/25/21 10:29 200 mls/hr Q24H LADAN Administration Protocol Insulin Human Lispro 0 unit 08/18/21 12:00 08/23/21 12:00 Insulin Lispro 100 Unit/Ml SUB-Q 2 unit Q6HR LADAN Administration Protocol Labetalol HCl 10 mg 08/23/21 07:45 Labetalol 20 Mg/4 Ml Inj IV Q4HR PRN SBP >160 Metoprolol Tartrate 25 mg 08/21/21 12:00 08/23/21 10:00 Metoprolol Tartrate 25 Mg Tab PO 25 mg BID LADAN Administration Naloxone HCl 0.4 mg 08/16/21 20:05 08/16/21 18:53 Naloxone 0.4 Mg/1 Ml Inj IV 0.4 mg Q2MIN PRN Administration Res Rate </= 8 or 02 SAT < 92% Ondansetron HCl 4 mg 08/16/21 21:28 Ondansetron 4 Mg/2 Ml Inj IV Q8H PRN Nausea And Vomiting Pantoprazole Sodium 40 mg 08/19/21 10:00 08/23/21 10:00 Pantoprazole 40 Mg Inj IV 40 mg QDAY LADAN Administration Simple Syrup 15 ml 08/21/21 11:52 Simple Syrup 15 Ml FEEDTUBE PRN PRN Hypoglycemia Simple Syrup 30 ml 08/21/21 11:52 Simple Syrup 15 Ml FEEDTUBE PRN PRN Hypoglycemia Sodium Bicarbonate 325 mg 08/21/21 11:52 Sodium Bicarbonate 325 Mg Tab FEEDTUBE PRN PRN For Clogged Feeding Tube Sodium Chloride 10 ml 08/16/21 22:00 08/23/21 10:00 Sodium Chloride 0.9% 10 Ml Flush Syringe IV 10 ml BID LADAN Administration Sodium Chloride 10 ml 08/16/21 21:28 Sodium Chloride 0.9% 10 Ml Flush Syringe IV PRN PRN LINE FLUSH
--- NOTE | 2021-08-23 14:53 | Ultrasound Report ---
Pelvic Ultrasound HISTORY: Post-menopause vaginal bleed. TECHNIQUE: Grayscale and color imaging performed. COMPARISON: None FINDINGS: Transabdominal imaging was performed. Uterus measures 13.1 x 7.2 x 7.7 cm with endometrial echocomplex measuring 9 mm. Both ovaries are normal in size. No significant pelvic free fluid. IMPRESSION: No gross acute abnormality on this limited exam Signer Name: Bassem Dumont MD Signed: 08/23/2021 2:48 PM Workstation Name: [id number]
--- NOTE | 2021-08-23 17:49 | Gastroenterology Progress Note ---
Assessment and Plan - Patient Problems (1) Hematochezia Current Visit: Yes Status: Acute Plan to address problem: - The most likely diagnosis, based on her past medical history (hypotension 1 week ago during admit for iatrogenic dilaudid overdose), is mild colon ischemia. Since she has no severe abdominal pain, fevers, or markedly elevated WBC, we w ill monitor conservatively for now. - OK to given necessary anticoagulation (heparin in HD, cardiac ASA) but would avoid NSAIDs. - Continue HD and transfusion as needed; when mental status clears we can perform an EGD/colonoscopy to further evaluate; at present would be unable to swallow prep and remains dependent on Dobhoff feeds. Subjective Date of service: 08/23/21 Principal diagnosis: Rectal Bleeding Interval history: The patient is seen with her son in the room, and is much more alert and interactive. She has had no rectal bleeding today, nor required transfusion. She is tolerating HD without abdominal pain. Objective - Constitutional Vitals: Temp Pulse Resp BP Pulse Ox 99.0 F 91 H 19 155/58 89 08/23/21 16:39 08/23/21 16:39 08/23/21 16:39 08/23/21 16:39 08/23/21 16:39 General appearance: no acute distress - EENT Eyes: PERRL, EOM intact ENT: other (Dobhoff via NG tube) - Respiratory Respiratory effort: normal Respiratory: bilateral: CTA - Cardiovascular Rhythm: regular Heart Sounds: Present: S1 & S2 - Gastrointestinal General gastrointestinal: Present: soft, non-tender, non-distended - Labs CBC & Chem 7: 08/23/21 04:00 08/23/21 04:00 Labs: Laboratory Results - last 24 hr 08/22/21 08/22/21 08/23/21 18:06 23:07 04:00 WBC RBC Hgb Hct MCV MCH MCHC RDW Plt Count Lymph % (Auto) [place] % (Auto) Eos % (Auto) Baso % (Auto) Lymph # (Auto) [place] # (Auto) Eos # (Auto) Baso # (Auto) Seg Neutrophils % Seg Neutrophils # Sodium 140 Potassium 3.4 L Chloride 101.8 Carbon Dioxide 27 Anion Gap 15 BUN 14 Creatinine 3.1 H Estimated GFR 15 BUN/Creatinine Ratio 5 Glucose 174 H POC Glucose 183 H 138 H Calcium 8.2 L 11/04/0708/23/21 08/23/21 04:00 11:58 16:40 WBC 6.7 RBC 2.93 L Hgb 8.8 L Hct 26.5 L MCV 91 MCH 30 MCHC 33 RDW 19.7 H Plt Count 261 Lymph % (Auto) 15.1 [place] % (Auto) 9.9 H Eos % (Auto) 5.1 H Baso % (Auto) 1.1 Lymph # (Auto) 1.0 L [place] # (Auto) 0.7 Eos # (Auto) 0.3 Baso # (Auto) 0.1 Seg Neutrophils % 68.8 Seg Neutrophils # 4.6 Sodium Potassium Chloride Carbon Dioxide Anion Gap BUN Creatinine Estimated GFR BUN/Creatinine Ratio Glucose POC Glucose 226 H 153 H Calcium
[2021-08-24] MEDS: hydrALAZINE 20 MG/1 ML INJ IV PRN (00:50)
[2021-08-24] MEDS: INSULIN LISPRO 100 UNIT/ML SUB-Q SCH ×4 (03:38→18:30)
[2021-08-24] MEDS: FUROSEMIDE 40 MG TAB PO SCH (10:16)
[2021-08-24] MEDS: amLODIPine 5 MG TAB PO SCH (10:16)
[2021-08-24] MEDS: METOPROLOL TARTRATE 25 MG TAB PO SCH ×2 (10:16→23:04)
[2021-08-24] MEDS: CEFEPIME/NS 2 GM/100 ML 2 GM/100 ML BAG IV SCH (10:18)
[2021-08-24] MEDS: HEPARIN 5,000 UNIT/1 ML VIAL SUB-Q SCH ×2 (10:19→23:02)
[2021-08-24] MEDS: PANTOPRAZOLE 40 MG INJ IV SCH (10:19)
--- NOTE | 2021-08-24 10:23 | Progress Note ---
Assessment and Plan Assessment and plan: Assessment and plan: This is a 70-year-old female with HTN, CAD s/p stent, DM, ESRD on HD, calciphylaxis admitted with acute hypoxic respiratory failure, UTI Interval history: This is a 70-year-old female with HTN, DM, ESRD on HD, calciphylaxis who pr esented to the emergency department on 08/16 with altered mental status and decreased responsiveness. Patient was recently admitted to the hospital after possible overdose on Dilaudid after vascular surgery for varicose veins on a Narcan drip. Upon arrival to the emergency department patient was given Narcan without significant improvement and had hypoglycemia into the 200s on initial presentation. Patient was obtunded and subsequently intubated to protect her airway. Work-up in the emergency department included a CXR and CT scan of the head which were unremarkable. Urinalysis revealed UTI patient was started on empiric antibiotics. Patient was admitted to the hospitalist service with consults to nephrology and [facility]. 08/17/21: Pt intubated, CC and nephro consulted, follow cx, cont abx, gurded prognosis 08/18/21: s/p HD today, plan to d/c all sedation and to monitor mental status, f ollow am lab. s/p one unit PRBC today 08/19/21: Patient was extubated today, urine culture resulted with E. coli and Klebsiella pneumoniae, trach aspirate with Pseudomonas aeruginosa however all are sensitive to cefepime which the patient is already on. 08/20: Neurology consulted, MRI brain and EEG pending, patient will be transferred out of the unit with remote telemetry as her H&H is stable. GI may scope the patient after another dialysis session if improvement with mentation. Patient failed speech evaluation and will be started on D10 while n.p.o. 08/21: Patient received MRI brain which showed microvascular angiopathy without evidence of recent territorial infarct. Dobbhoff placed and nutrition consulted for tube feedings. Patient received hemodialysis today. 08/22: Vaginal bleeding noted overnight, H&H is stable. Pelvic ultrasound is ordered will follow results. DC DVT prophylaxis at this time. Patient neurological recovery has been slow. She continues to follow some commands intermittently. However she still is aphasic and unable to communicate when questioned. EEG completed did not demonstrate any findings of seizure activity. Will await neurology final recommendations. ST recommended PEG as patient still at risk for aspiration. GI is already following patient right now but will discuss with them. Overall at this point continuing supportive management and hopeful neurologic recovery. On the last admission patient had taken approximately 6 to 7 days before returning to baseline. Will reassess through the weekend. was updated this afternoon. 08/23: Awaiting remainder of workup. Pelvic ultrasound pending. No signs and symptoms of bleeding this AM. Patient mental status has significantly improved. She is able to answer some questioning and follows all commands. She is drowsy but it appears medication is clearing her system. Will ask ST to re-eval swallowing today. D/w GI yesterday regarding PEG, we both agreed it might be premature for PEG at this point but would re-eval if patient worsened. Will continue supportive management. 08/24: More alert and oriented today. ST re-eval ordered. patient pulled NG yesterday. ok to hold. No need for mitten restraints at this time. No bleeding noted on exam. Will follow up with GI if there is plan to do further work up Wednesday. Anticipate d/c in next 24-48hrs. Avoid all opioid narcotics and sedatives in this patient please Neuro: Metabolic versus toxic encephalopathy -CT head with no acute findings -Avoid delirium -Reorientation as needed -Maintain sleep-wake cycle -Neurology consulted, appreciate recommendations -MRI brain shows no recent territorial infarct -EEG pending Cardio: h/o HTN, CAD s/p stent -resume home hypertensive regimen and adjust as needed -Blood pressure monitor per protocol -As needed hydralazine -Resume home Lipitor -Hold home aspirin, Plavix Respiratory: Acute hypoxic respiratory failure -Patient was intubated 08/16 and extubated on 08/19 -Patient is currently on room air -Pulmonary hygiene -Supplemental oxygen as needed -SPO2 monitoring GI: Hematochezia -GI consulted, appreciate recommendations -Protonix IV -NG tube placed today -Nutrition consulted -Tube feedings started -24-hour -45 -Hold as needed at this time given GI bleed : ESRD on HD, calciphylaxis, hyponatremia, hypochloremia, metabolic acidosis, hypokalemia -Nephrology consulted, appreciate recommendations -HD per nephrology -Renally dose medications -Strict intake and output -Daily weights -Trend BMP -replace electrolytes prn. ID: E. coli and Klebsiella pneumonia UTI, tracheal aspirate with Pseudomonas aeruginosa -Patient is on cefepime -Trend fever and WBC curve Heme: Anemia of chronic disease, GI bleed -S/p 2 units PRBC -Transfuse for less than 7 hemoglobin -Trend CBC -Epogen per nephrology -H/H every 6 - hold lovenox due to vaginal bleeding. Endo: h/o DM -Accu-Cheks every 6 -SSI as needed -Avoid hypoglycemia History Interval history: Significant improvement in mental status. More alert, able to communicate needs, she follows commands. Asking for yancy and for something to eat Discussed with patient and RN at bedside that she will need ST evaluation and o nce cleared, can have a diet. Hospitalist Physical - Physical exam Narrative exam: - General Apperance Constitutional: comfortable - EENT EENT: PERRL, mucous membranes moist - Respiratory Respiratory: chest non-tender, lungs clear, rhonchi - Cardiovascular Cardiovascular: regular rate, normal S1, normal S2 Extremities: no peripheral edema bilat, no clubbing, cyanosis - Gastrointestinal Gastrointestinal: normoactive bowel sounds - Integumentary Integumentary: normal - Neurologic Cranial nerve examination: PERRL, EOMI, intact Speech examination: normal. Detailed motor examination: grossly full strength in Follows commands, alert, oriented x 2. - Constitutional Vitals: Temp Pulse Resp BP Pulse Ox 98 F 100 H 18 140/92 99 08/24/21 06:30 08/24/21 06:30 08/24/21 06:30 08/24/21 06:30 08/24/21 06:30 General appearance: Present: well-nourished Results - Labs CBC & Chem 7: 08/23/21 04:00 08/23/21 04:00 Labs: Laboratory Last Values WBC 6.7 K/mm3 (4.5-11.0) 08/23/21 04:00 RBC 2.93 M/mm3 (3.65-5.03) L 08/23/21 04:00 Hgb 8.8 gm/dl (10.1-14.3) L 08/23/21 04:00 Hct 26.5 % (30.3-42.9) L 08/23/21 04:00 MCV 91 fl (79-97) 08/23/21 04:00 MCH 30 pg (28-32) 08/23/21 04:00 MCHC 33 % (30-34) 08/23/21 04:00 RDW 19.7 % (13.2-15.2) H 08/23/21 04:00 Plt Count 261 K/mm3 (140-440) 08/23/21 04:00 Lymph % (Auto) 15.1 % (13.4-35.0) 08/23/21 04:00 [place] % (Auto) 9.9 % (0.0-7.3) H 08/23/21 04:00 Eos % (Auto) 5.1 % (0.0-4.3) H 08/23/21 04:00 Baso % (Auto) 1.1 % (0.0-1.8) 08/23/21 04:00 Lymph # (Auto) 1.0 K/mm3 (1.2-5.4) L 08/23/21 04:00 [place] # (Auto) 0.7 K/mm3 (0.0-0.8) 08/23/21 04:00 Eos # (Auto) 0.3 K/mm3 (0.0-0.4) 08/23/21 04:00 Baso # (Auto) 0.1 K/mm3 (0.0-0.1) 08/23/21 04:00 Seg Neutrophils % 68.8 % (40.0-70.0) 08/23/21 04:00 Seg Neutrophils # 4.6 K/mm3 (1.8-7.7) 08/23/21 04:00 PT 13.9 Sec. (12.2-14.9) 08/17/21 04:41 INR 0.96 (0.87-1.13) 08/17/21 04:41 ABG pH 7.373 (7.320-7.450) 08/18/21 04:30 POC ABG pCO2 33.4 mmHg (32.0-48.0) 08/18/21 04:30 ABG pCO2 28.7 mm Hg 08/17/21 03:08 POC ABG pO2 124.7 mmHg (83-108) H 08/18/21 04:30 ABG pO2 45.2 mm Hg (80.0-90.0) L 08/17/21 03:08 POC ABG HCO3 19.0 08/18/21 04:30 ABG HCO3 23.2 mmol/L (20.0-26.0) 08/17/21 03:08 ABG O2 Saturation 98.4 (0-100) 08/18/21 04:30 ABG O2 Content 9.8 (0.0-44) 08/17/21 03:08 POC ABG Base Excess -5.5 08/18/21 04:30 ABG Base Excess 0.8 mmol/L (-2.0-3.0) 08/17/21 03:08 ABG Hemoglobin 10.1 (12.0-17.5) L 08/18/21 04:30 ABG Oxyhemoglobin 98.1 (94-98) H 08/18/21 04:30 ABG Carboxyhemoglobin 1.5 % (0.0-5.0) 08/17/21 03:08 ABG Methemoglobin 0.3 (0.0-1.5) 08/18/21 04:30 ABG Sodium 135.5 mmol/L (136.0-145.0) L 08/18/21 04:30 ABG Potassium 4.0 mmol/L (3.40-4.50) 08/18/21 04:30 ABG Chloride 106.0 mmol/L (98-107) 08/18/21 04:30 ABG Glucose 80 mg/dL (65-95) 08/18/21 04:30 Oxyhemoglobin 79.6 % (95.0-99.0) L 08/17/21 03:08 Carboxyhemoglobin 0 (0.5-1.5) L 08/18/21 04:30 FiO2 45 % 08/17/21 03:08 FiO2 % 30.0 08/18/21 04:30 Sodium 140 mmol/L (137-145) 08/23/21 04:00 Potassium 3.4 mmol/L (3.6-5.0) L 08/23/21 04:00 Chloride 101.8 mmol/L (98-107) 08/23/21 04:00 Carbon Dioxide 27 mmol/L (22-30) 08/23/21 04:00 Anion Gap 15 mmol/L 08/23/21 04:00 BUN 14 mg/dL (7-17) 08/23/21 04:00 Creatinine 3.1 mg/dL (0.6-1.2) H 08/23/21 04:00 Estimated GFR 15 ml/min 08/23/21 04:00 BUN/Creatinine Ratio 5 % 08/23/21 04:00 Glucose 174 mg/dL (65-100) H 08/23/21 04:00 POC Glucose 165 mg/dL (70-105) H 08/24/21 06:22 Lactic Acid 1.00 mmol/L (0.7-2.0) 08/16/21 22:44 Calcium 8.2 mg/dL (8.4-10.2) L 08/23/21 04:00 Phosphorus 3.30 mg/dL (2.5-4.5) 08/21/21 04:36 Magnesium 2.00 mg/dL (1.7-2.3) 08/21/21 04:36 Total Bilirubin 0.20 mg/dL (0.1-1.2) 08/18/21 04:15 AST 23 units/L (5-40) 08/18/21 04:15 ALT 11 units/L (7-56) 08/18/21 04:15 Alkaline Phosphatase 144 units/L (35-129) H 08/18/21 04:15 Total Protein 6.1 g/dL (6.3-8.2) L 08/18/21 04:15 Albumin 1.6 g/dL (3.9-5) L 08/18/21 04:15 Albumin/Globulin Ratio 0.4 % 08/18/21 04:15 Arterial Blood Glucose 80 mg/dL (65-95) 08/18/21 04:30 Urine Color Yellow (Yellow) 08/16/21 08:00 Urine Turbidity Turbid (Clear) 08/16/21 08:00 Urine pH 6.0 (5.0-7.0) 08/16/21 08:00 Ur Specific [place] 1.010 (1.003-1.030) 08/16/21 08:00 Urine Protein >500 mg/dL (Negative) 08/16/21 08:00 Urine Glucose (UA) Negative mg/dL (Negative) 08/16/21 08:00 Urine Ketones Negative mg/dL (Negative) 08/16/21 08:00 Urine Blood Moderate (Negative) A 08/16/21 08:00 Urine Nitrite Negative (Negative) 08/16/21 08:00 Ur Reducing Substances Not Reportable 08/16/21 08:00 Urine Bilirubin Negative (Negative) 08/16/21 08:00 Urine Ictotest Not Reportable 08/16/21 08:00 Urine Urobilinogen < 2.0 mg/dL (<2.0) 08/16/21 08:00 Ur Leukocyte Esterase Large (Negative) 08/16/21 08:00 Urine WBC (Auto) > 182.0 /HPF (0.0-6.0) H 08/16/21 08:00 Urine RBC (Auto) 17.0 /HPF (0.0-6.0) 08/16/21 08:00 U Epithel Cells (Auto) 32.0 /HPF (0-13.0) H 08/16/21 08:00 Urine Bacteria (Auto) 4+ /HPF (Negative) 08/16/21 08:00 Urine Mucus 1+ /HPF 08/16/21 08:00 Urine Yeast (Budding) 2+ /HPF 08/16/21 08:00 Nasal Screen MRSA (PCR) Negative (Negative) 08/20/21 03:50 Urine Opiates Screen Negative 08/16/21 20:58 Urine Methadone Screen Negative 08/16/21 20:58 Ur Barbiturates Screen Negative 08/16/21 20:58 Ur Phencyclidine Scrn Negative 08/16/21 20:58 Ur Amphetamines Screen Negative 08/16/21 20:58 U Benzodiazepines Scrn Negative 08/16/21 20:58 Urine Cocaine Screen Negative 08/16/21 20:58 U Marijuana (THC) Screen Negative 08/16/21 20:58 Drugs of Abuse Note Disclamer 08/16/21 20:58 Plasma/Serum Alcohol < 0.01 % (0-0.07) 08/16/21 20:06 Blood Type B POSITIVE 08/18/21 20:50 Antibody Screen Negative 08/18/21 20:50 Crossmatch See Detail 08/18/21 20:50 Noriega/IV: Voiding Method Condom Catheter Active Medications - Current Medications Current Medications: Generic Name Dose Route Start Last Admin Trade Name Freq PRN Reason Stop Dose Admin Acetaminophen 650 mg 08/16/21 21:28 Acetaminophen 650 Mg Rect Supp AR Q6H PRN Pain MILD(1-3)/Fever >100.5/PÉREZ Amlodipine Besylate 5 mg 08/21/21 12:00 08/24/21 10:16 Amlodipine 5 Mg Tab PO Not Given QDAY LADAN Lipase/Protease/Amylase 1 each 08/21/21 11:52 Lipase 10,500/Protease 25,000/Amylase 43,750 (Units) Dr [place] FEEDTUBE PRN PRN For Clogged Feeding Tube Atorvastatin Calcium 40 mg 08/21/21 22:00 08/23/21 21:37 Atorvastatin 40 Mg Tab PO Not Given QHS LADAN Dextrose 0 ml 08/16/21 21:28 08/17/21 16:54 Dextrose 50% In Water (25gm) 50 Ml Syringe IV 10 ml Q30MIN PRN Administration Hypoglycemia Protocol Furosemide 40 mg 08/23/21 07:46 08/24/21 10:16 Furosemide 40 Mg Tab PO Not Given QDAY LADAN Heparin Sodium (Porcine) 3,000 unit 08/18/21 08:05 08/20/21 15:03 Heparin 10,000 Units/10 Ml Vial IV 3,000 unit TITO PRN Administration hemodialysis Heparin Sodium (Porcine) 5,000 unit 08/22/21 22:00 08/23/21 21:36 Heparin 5,000 Unit/1 Ml Vial SUB-Q 5,000 unit Q12HR LADAN Administration Hydralazine HCl 10 mg 08/17/21 04:30 08/24/21 00:50 Hydralazine 20 Mg/1 Ml Inj IV 10 mg Q4HR PRN Administration Hypertension Sodium Chloride 100 mls @ 999 mls/hr 08/18/21 08:05 Nacl 0.9% IV TITO PRN Hypotension Cefepime HCl 2 gm in 100 mls @ 200 mls/hr 08/19/21 10:00 08/23/21 10:00 Cefepime/Ns 2 Gm/100 Ml IV 08/25/21 10:29 200 mls/hr Q24H LADAN Administration Protocol Insulin Human Lispro 0 unit 08/18/21 12:00 08/24/21 07:26 Insulin Lispro 100 Unit/Ml SUB-Q Not Given Q6HR [facility] Protocol Labetalol HCl 10 mg 08/23/21 07:45 Labetalol 20 Mg/4 Ml Inj IV Q4HR PRN SBP >160 Metoprolol Tartrate 25 mg 08/21/21 12:00 08/24/21 10:16 Metoprolol Tartrate 25 Mg Tab PO Not Given BID LADAN Naloxone HCl 0.4 mg 08/16/21 20:05 08/16/21 18:53 Naloxone 0.4 Mg/1 Ml Inj IV 0.4 mg Q2MIN PRN Administration Res Rate </= 8 or 02 SAT < 92% Ondansetron HCl 4 mg 08/16/21 21:28 Ondansetron 4 Mg/2 Ml Inj IV Q8H PRN Nausea And Vomiting Pantoprazole Sodium 40 mg 08/19/21 10:00 08/23/21 10:00 Pantoprazole 40 Mg Inj IV 40 mg QDAY LADAN Administration Simple Syrup 15 ml 08/21/21 11:52 Simple Syrup 15 Ml FEEDTUBE PRN PRN Hypoglycemia Simple Syrup 30 ml 08/21/21 11:52 Simple Syrup 15 Ml FEEDTUBE PRN PRN Hypoglycemia Sodium Bicarbonate 325 mg 08/21/21 11:52 Sodium Bicarbonate 325 Mg Tab FEEDTUBE PRN PRN For Clogged Feeding Tube Sodium Chloride 10 ml 08/16/21 22:00 08/23/21 21:39 Sodium Chloride 0.9% 10 Ml Flush Syringe IV 10 ml BID LADAN Administration Sodium Chloride 10 ml 08/16/21 21:28 Sodium Chloride 0.9% 10 Ml Flush Syringe IV PRN PRN LINE FLUSH Nutrition/Malnutrition Assess - Dietary Evaluation Nutrition/Malnutrition Findings: Nutrition Notes Start: 08/17/21 10:25 Freq: Status: Active Protocol: Document 08/21/21 11:36 GB (Rec: 08/21/21 11:51 GB [id number]) Nutrition Notes Initial or Follow up Reassessment Current Diagnosis CKD (stage V CKD),Coronary Artery Disease,Diabetes, Hypertension,Heart Failure, Respiratory Failure Other Pertinent Diagnosis UTI, on HD, encephalopathy, drug OD Current Diet NPO x1day Labs/Tests 08/21: Creatinine 3.2 ( improving), glucose 152 ( fluctuating in stable range), Ca 8.1 (improving) Pertinent Medications D5(PRN) Height 5 ft 8 in Weight 91 kg [place] Body Weight (kg) 63.63 BMI 30.4 Weight change and time frame no change reported 08/21: no new weights recorded at time of assessment Weight Status Obese Subjective/Other Information MD consult for diet education - not a candidate for education r/t unable to comprehend MD consult for write/manage tube feeding MD notes 08/21: abdominal Xray ordered. RN discussion: dobhoff to be placed today. Last BM: 08/20 RD: to place TF order. Start once gastric tube is verified. Percent of energy/protein needs met: 0% per NPO TF order to be placed and once at goal will meet 75% or greater of EEN Burn Absent Trauma Absent GI Symptoms None Difficulty In Swallowing Food Allergy No Skin Integrity/Comment wounds DM ulcers LLE, RLE Current % PO Other Minimum of two criteria No #2 Nutrition Diagnosis Food and nutrition-related knowledge deficit Comments: 08/21: pt not a candidate for education. Does not respond to Yes/No questions. Eyes open, awake, and looks at person speaking, no responses for comprehension. Etiology HD dependent, DM As Evidenced by Signs and Symptoms MD consult for nutrition education, previously intubated/sedated Diagnosis Progress(for reassessment Resolved documentation) #1 Nutrition Diagnosis Inadequate oral intake Comments: 08/19: pt extubated 10am, diet to start 08/21: NPO x 1 day. TF consult to start today once dobhoff placed/verified. [employer]: bolus holding, failure to initiate swallow. - remain NPO - [employer] following Etiology drug OD, ARF As Evidenced by Signs and Symptoms pt on vent and unable to consume PO Diagnosis Progress(for reassessment Continues documentation) Is patient on ventilator? No Is Patient Ambulatory and/or Out of Bed No REE-([facility]-confined to bed) 1768.020 Kcal/Kg value to use for calculation 20 Approximate Energy Requirements Using 1820 kcal/Kg Calculation Used for Recommendations Kcal/kg Additional Notes Protein: 1-1.2g/kg @ 91k- 109g Fluid: 1 ml/kcal or per MD Nutrition Intervention Change Diet Order: Advance to consistent carbohydrate Per [employer] swallow evaluation results. Nutrition Support: Nepro @ 42ml/hr. Start rate 22ml/hr. Increase 10ml/8hr as tolerated. Flush: 146ml/4hr. Or per MD Total free water/day: TF@goal + flush = 1600ml Kcal 1,800 Protein (gm) 81 Carbohydrates (gm) 161 Fat (gm) 96 Fluid (mL) 727 Fiber (gm) 13 % RDI: 100%kcal/89%pro Education Handouts Provided Not a candidate for education r/t alert but not responsive. Goal #1 Diet started and advanced to consistent carbohydrate by f/u . 08/21: TF to start r/t [employer] swallow eval not passed and recommended for NPO to continue Goal #2 TF (Nepro) to start by f/u. Goal #3 TF (nepro) at goal (42ml/hr) by f/u and tolerated. Follow-Up By: 08/25/21 Additional Comments F/U: TF at goal, [employer] swallow eval results
--- NOTE | 2021-08-24 14:07 | Gastroenterology Progress Note ---
Assessment and Plan Patient still with mild confusion Will reassess daily, when mental status clears we can perform an EGD/colonoscopy to further evaluate Differential diagnosis includes peptic ulcer disease, ischemic colitis, AVM, etc. - Patient Problems (1) Hematochezia Current Visit: Yes Status: Acute (2) CHF (congestive heart failure) Current Visit: No Status: Acute Qualifiers: Heart failure type: combined systolic and diastolic Heart failure chronicity: acute on chronic Qualified Code(s): I50.43 - Acute on chronic combined systolic (congestive) and diastolic (congestive) heart failure (3) ESRD (end stage renal disease) Current Visit: No Status: Chronic Subjective Date of service: 08/24/21 Principal diagnosis: GIB Interval history: hgb stable no AM labs She denies any GI bleeding Objective - Constitutional Vitals: Temp Pulse Resp BP Pulse Ox 97.0 F L 95 H 20 154/51 99 08/24/21 11:32 08/24/21 11:32 08/24/21 11:32 08/24/21 11:32 08/24/21 11:32 General appearance: no acute distress - EENT Eyes: EOM intact - Respiratory Respiratory effort: normal - Cardiovascular Rhythm: regular - Gastrointestinal General gastrointestinal: Present: soft - Labs CBC & Chem 7: 08/23/21 04:00 08/23/21 04:00 Labs: Laboratory Results - last 24 hr 08/23/21 08/23/21 08/24/21 16:40 23:16 06:22 POC Glucose 153 H 158 H 165 H
--- NOTE | 2021-08-24 17:59 | Progress Note ---
Assessment and Plan 1. ESRD: Patient is on maintenance HD, MWF schedule. Patient was switched to hemodialysis about 2 months ago 2/2 calciphylaxis. Meds dosage based on GFR. Last outpatient HD ?08/15. Hemodialysis: 08/18, 08/20, 08/22. 2. FEN: Mild anion-gap metabolic acidosis, on HD. Monitor lytes and volume status. 3. Acute metabolic encephalopathy, POA: ?2/[address] head negative. Improving. Seen by Neuro. Monitor. 4. H/o CAD s/p stent. Echo; EF 60%, LVH. 5. Anemia: Epogen with HD. 6. HTN: Monitor BP. 7. Type 2 DM. Subjective: Patient was seen and examined at the bedside. Examination: General appearance: well-developed, well-nourished, appears stated age HEENT: ATNC, pupils equal Neck: trachea midline Respiratory: Clear to Auscultation Cardiology: regular, S1S2, no murmur Gastrointestinal: normoactive bowel sounds, not tender, PD catheter noted Integumentary: b/l LE dressing noted Neurologic: alert, conversing, able to move extremities Ext: no edema Hemodialysis access: R IJ tunnel catheter Subjective Date of service: 08/24/21 Principal diagnosis: GIB Objective - Vital Signs Vital signs: Vital Signs - 12hr 08/24/21 08/24/21 08/24/21 06:30 10:00 11:32 Temperature 98 F 97.0 F L Pulse Rate 100 H 95 H Respiratory 18 20 Rate Blood Pressure 154/51 Blood Pressure 140/92 [Right] O2 Sat by Pulse 99 95 99 Oximetry - Lab 08/23/21 04:00 08/23/21 04:00 Most recent lab results ABG pH 7.373 (7.320-7.450) 08/18/21 04:30 ABG pCO2 28.7 mm Hg 08/17/21 03:08 ABG pO2 45.2 mm Hg (80.0-90.0) L 08/17/21 03:08 ABG HCO3 23.2 mmol/L (20.0-26.0) 08/17/21 03:08 ABG O2 Saturation 98.4 (0-100) 08/18/21 04:30 Calcium 8.2 mg/dL (8.4-10.2) L 08/23/21 04:00 Phosphorus 3.30 mg/dL (2.5-4.5) 08/21/21 04:36 Magnesium 2.00 mg/dL (1.7-2.3) 08/21/21 04:36 Medications & Allergies - Medications Allergies/Adverse Reactions: Allergies Penicillins Allergy (Unknown, Verified 08/11/21 17:39) Itching Home Medications: Home Medications Medication Instructions Recorded Confirmed Last Taken Type Albuterol Sulfate [Ventolin Hfa] 2 puff IH Q6H PRN 08/30/18 08/18/21 10/08/18 History Insulin Lispro [HumaLOG VIAL] 0 units SQ AC #1 vial 10/06/18 08/18/21 08/16/21 Rx Cinacalcet [Sensipar] 30 mg PO QDAY 08/08/21 08/18/21 Unknown History Furosemide [Lasix TAB] 80 mg PO QDAY 08/08/21 08/18/21 Unknown History Metoprolol Succinate [Toprol Xl] 25 mg PO DAILY 08/08/21 08/18/21 Unknown History Nortriptyline [Pamelor] 25 mg PO DAILY 08/08/21 08/18/21 Unknown History calcitrioL [Rocaltrol] 0.5 mcg PO QDAY 08/08/21 08/18/21 Unknown History metOLazone [Zaroxolyn] 5 mg PO QDAY 08/08/21 08/18/21 Unknown History Aspirin [Aspirin BABY CHEW TAB] 81 mg PO QDAY 30 Days #30 tab.chew 08/14/21 08/18/21 Unknown Rx AtorvaSTATin [Lipitor] 40 mg PO QHS #90 tablet 08/14/21 08/18/21 Unknown Rx Clopidogrel [Plavix] 75 mg PO QDAY 30 Days #30 tablet 08/14/21 08/18/21 Unknown Rx Hydralazine HCl 50 mg PO BID 30 Days #30 tab 08/14/21 08/18/21 Unknown Rx amLODIPine 5 mg PO QDAY 30 Days #30 tablet 08/14/21 08/18/21 Unknown Rx Active Medications: Generic Name Dose Route Start Last Admin Trade Name Freq PRN Reason Stop Dose Admin Acetaminophen 650 mg 08/16/21 21:28 Acetaminophen 650 Mg Rect Supp [place] Q6H PRN Pain MILD(1-3)/Fever >100.5/PÉREZ Amlodipine Besylate 5 mg 08/21/21 12:00 08/24/21 10:16 Amlodipine 5 Mg Tab PO Not Given QDAY LADAN Lipase/Protease/Amylase 1 each 08/21/21 11:52 Lipase 10,500/Protease 25,000/Amylase 43,750 (Units) Dr [place] FEEDTUBE PRN PRN For Clogged Feeding Tube Atorvastatin Calcium 40 mg 08/21/21 22:00 08/23/21 21:37 Atorvastatin 40 Mg Tab PO Not Given QHS LADAN Dextrose 0 ml 08/16/21 21:28 08/17/21 16:54 Dextrose 50% In Water (25gm) 50 Ml Syringe IV 10 ml Q30MIN PRN Administration Hypoglycemia Protocol Furosemide 40 mg 08/23/21 07:46 08/24/21 10:16 Furosemide 40 Mg Tab PO Not Given QDAY LADAN Heparin Sodium (Porcine) 3,000 unit 08/18/21 08:05 08/20/21 15:03 Heparin 10,000 Units/10 Ml Vial IV 3,000 unit TITO PRN Administration hemodialysis Heparin Sodium (Porcine) 5,000 unit 08/22/21 22:00 08/24/21 10:19 Heparin 5,000 Unit/1 Ml Vial SUB-Q 5,000 unit Q12HR LADAN Administration Hydralazine HCl 10 mg 08/17/21 04:30 08/24/21 00:50 Hydralazine 20 Mg/1 Ml Inj IV 10 mg Q4HR PRN Administration Hypertension Sodium Chloride 100 mls @ 999 mls/hr 08/18/21 08:05 Nacl 0.9% IV TITO PRN Hypotension Cefepime HCl 2 gm in 100 mls @ 200 mls/hr 08/19/21 10:00 08/24/21 10:18 Cefepime/Ns 2 Gm/100 Ml IV 08/25/21 10:29 200 mls/hr Q24H LADAN Administration Protocol Insulin Human Lispro 0 unit 08/18/21 12:00 08/24/21 12:00 Insulin Lispro 100 Unit/Ml SUB-Q Not Given Q6HR [facility] Protocol Labetalol HCl 10 mg 08/23/21 07:45 Labetalol 20 Mg/4 Ml Inj IV Q4HR PRN SBP >160 Metoprolol Tartrate 25 mg 08/21/21 12:00 08/24/21 10:16 Metoprolol Tartrate 25 Mg Tab PO Not Given BID LADAN Naloxone HCl 0.4 mg 08/16/21 20:05 08/16/21 18:53 Naloxone 0.4 Mg/1 Ml Inj IV 0.4 mg Q2MIN PRN Administration Res Rate </= 8 or 02 SAT < 92% Ondansetron HCl 4 mg 08/16/21 21:28 Ondansetron 4 Mg/2 Ml Inj IV Q8H PRN Nausea And Vomiting Pantoprazole Sodium 40 mg 08/19/21 10:00 08/24/21 10:19 Pantoprazole 40 Mg Inj IV 40 mg QDAY LADAN Administration Simple Syrup 15 ml 08/21/21 11:52 Simple Syrup 15 Ml FEEDTUBE PRN PRN Hypoglycemia Simple Syrup 30 ml 08/21/21 11:52 Simple Syrup 15 Ml FEEDTUBE PRN PRN Hypoglycemia Sodium Bicarbonate 325 mg 08/21/21 11:52 Sodium Bicarbonate 325 Mg Tab FEEDTUBE PRN PRN For Clogged Feeding Tube Sodium Chloride 10 ml 08/16/21 22:00 08/24/21 10:19 Sodium Chloride 0.9% 10 Ml Flush Syringe IV 10 ml BID LADAN Administration Sodium Chloride 10 ml 08/16/21 21:28 Sodium Chloride 0.9% 10 Ml Flush Syringe IV PRN PRN LINE FLUSH
[2021-08-25] MEDS: INSULIN LISPRO 100 UNIT/ML SUB-Q SCH ×4 (01:17→17:45)
--- NOTE | 2021-08-25 08:35 | Gastroenterology Progress Note ---
Assessment and Plan Patient with improved mental status she is now oriented Recommend trying to remove restraints and ensure patient is compliant We will tentatively plan on scheduling an EGD/colonoscopy on Wednesday Therefore put in orders for clear liquid diet Wednesday and GoLYTELY prep on Wednesday and n.p.o. past midnight Wednesday night for procedure on Wednesday Differential diagnosis includes peptic ulcer disease, ischemic colitis, AVM, etc. - Patient Problems (1) Hematochezia Current Visit: Yes Status: Acute (2) CHF (congestive heart failure) Current Visit: No Status: Acute Qualifiers: Heart failure type: combined systolic and diastolic Heart failure chronicity: acute on chronic Qualified Code(s): I50.43 - Acute on chronic combined systolic (congestive) and diastolic (congestive) heart failure (3) ESRD (end stage renal disease) Current Visit: No Status: Chronic Subjective Date of service: 08/25/21 Principal diagnosis: GIB Interval history: hgb stable patient more oriented today, denies bleeding she is oriented to self, location, year Objective - Constitutional Vitals: Temp Pulse Resp BP Pulse Ox 98.2 F 92 H 18 148/64 100 08/25/21 04:08 08/25/21 04:08 08/25/21 04:08 08/25/21 04:08 08/25/21 04:08 General appearance: no acute distress, other (in restraints) - EENT Eyes: EOM intact ENT: hearing intact - Respiratory Respiratory effort: normal - Gastrointestinal General gastrointestinal: Present: soft, non-tender - Labs CBC & Chem 7: 08/23/21 04:00 08/23/21 04:00 Labs: Laboratory Results - last 24 hr 08/24/21 08/24/21 08/25/21 17:11 20:49 04:12 POC Glucose 203 H 154 H 165 H
--- NOTE | 2021-08-25 09:49 | Progress Note ---
Assessment and Plan 1. ESRD: Patient is on maintenance HD, MWF schedule. Patient was switched to hemodialysis about 2 months ago 2/2 calciphylaxis. Meds dosage based on GFR. Last outpatient HD ?08/15. Hemodialysis: 08/18, 08/20, 08/22, 08/25. 2. FEN: Mild anion-gap metabolic acidosis, on HD. Monitor lytes and volume status. 3. Acute metabolic encephalopathy, POA: ?2/[address] head negative. Improved. 4. H/o CAD s/p stent. Echo; EF 60%, LVH. 5. Anemia: Epogen with HD. 6. HTN: Monitor BP. 7. Type 2 DM. Subjective: Patient was seen and examined at the bedside. D/w her . Examination: General appearance: well-developed, well-nourished, appears stated age HEENT: ATNC, pupils equal Neck: trachea midline Respiratory: Clear to Auscultation Cardiology: regular, S1S2, no murmur Gastrointestinal: normoactive bowel sounds, not tender, PD catheter noted Integumentary: b/l LE dressing noted Neurologic: AO, conversing, able to move extremities Ext: no edema Hemodialysis access: R IJ tunnel catheter Subjective Date of service: 08/25/21 Principal diagnosis: GIB Objective - Vital Signs Vital signs: Vital Signs - 12hr 08/24/21 08/25/21 08/25/21 22:00 04:00 04:08 Temperature 98.2 F Pulse Rate 96 H 92 H Respiratory 18 Rate Blood Pressure 148/64 O2 Sat by Pulse 96 100 Oximetry - Lab 08/23/21 04:00 08/23/21 04:00 Most recent lab results ABG pH 7.373 (7.320-7.450) 08/18/21 04:30 ABG pCO2 28.7 mm Hg 08/17/21 03:08 ABG pO2 45.2 mm Hg (80.0-90.0) L 08/17/21 03:08 ABG HCO3 23.2 mmol/L (20.0-26.0) 08/17/21 03:08 ABG O2 Saturation 98.4 (0-100) 08/18/21 04:30 Calcium 8.2 mg/dL (8.4-10.2) L 08/23/21 04:00 Phosphorus 3.30 mg/dL (2.5-4.5) 08/21/21 04:36 Magnesium 2.00 mg/dL (1.7-2.3) 08/21/21 04:36 Medications & Allergies - Medications Allergies/Adverse Reactions: Allergies Penicillins Allergy (Unknown, Verified 08/11/21 17:39) Itching Home Medications: Home Medications Medication Instructions Recorded Confirmed Last Taken Type Albuterol Sulfate [Ventolin Hfa] 2 puff IH Q6H PRN 08/30/18 08/18/21 10/08/18 History Insulin Lispro [HumaLOG VIAL] 0 units SQ AC #1 vial 10/06/18 08/18/21 08/16/21 Rx Cinacalcet [Sensipar] 30 mg PO QDAY 08/08/21 08/18/21 Unknown History Furosemide [Lasix TAB] 80 mg PO QDAY 08/08/21 08/18/21 Unknown History Metoprolol Succinate [Toprol Xl] 25 mg PO DAILY 08/08/21 08/18/21 Unknown History Nortriptyline [Pamelor] 25 mg PO DAILY 08/08/21 08/18/21 Unknown History calcitrioL [Rocaltrol] 0.5 mcg PO QDAY 08/08/21 08/18/21 Unknown History metOLazone [Zaroxolyn] 5 mg PO QDAY 08/08/21 08/18/21 Unknown History Aspirin [Aspirin BABY CHEW TAB] 81 mg PO QDAY 30 Days #30 tab.chew 08/14/21 08/18/21 Unknown Rx AtorvaSTATin [Lipitor] 40 mg PO QHS #90 tablet 08/14/21 08/18/21 Unknown Rx Clopidogrel [Plavix] 75 mg PO QDAY 30 Days #30 tablet 08/14/21 08/18/21 Unknown Rx Hydralazine HCl 50 mg PO BID 30 Days #30 tab 08/14/21 08/18/21 Unknown Rx amLODIPine 5 mg PO QDAY 30 Days #30 tablet 08/14/21 08/18/21 Unknown Rx Active Medications: Generic Name Dose Route Start Last Admin Trade Name Freq PRN Reason Stop Dose Admin Acetaminophen 650 mg 08/16/21 21:28 Acetaminophen 650 Mg Rect Supp [place] Q6H PRN Pain MILD(1-3)/Fever >100.5/PÉREZ Amlodipine Besylate 5 mg 08/21/21 12:00 08/24/21 10:16 Amlodipine 5 Mg Tab PO Not Given QDAY LADAN Lipase/Protease/Amylase 1 each 08/21/21 11:52 Lipase 10,500/Protease 25,000/Amylase 43,750 (Units) Dr [place] FEEDTUBE PRN PRN For Clogged Feeding Tube Atorvastatin Calcium 40 mg 08/21/21 22:00 08/24/21 23:04 Atorvastatin 40 Mg Tab PO 40 mg QHS LADAN Administration Dextrose 0 ml 08/16/21 21:28 08/17/21 16:54 Dextrose 50% In Water (25gm) 50 Ml Syringe IV 10 ml Q30MIN PRN Administration Hypoglycemia Protocol Furosemide 40 mg 08/23/21 07:46 08/24/21 10:16 Furosemide 40 Mg Tab PO Not Given QDAY LADAN Heparin Sodium (Porcine) 3,000 unit 08/18/21 08:05 08/20/21 15:03 Heparin 10,000 Units/10 Ml Vial IV 3,000 unit TITO PRN Administration hemodialysis Heparin Sodium (Porcine) 5,000 unit 08/22/21 22:00 08/24/21 23:02 Heparin 5,000 Unit/1 Ml Vial SUB-Q 5,000 unit Q12HR LADAN Administration Hydralazine HCl 10 mg 08/17/21 04:30 08/24/21 00:50 Hydralazine 20 Mg/1 Ml Inj IV 10 mg Q4HR PRN Administration Hypertension Sodium Chloride 100 mls @ 999 mls/hr 08/18/21 08:05 Nacl 0.9% IV TITO PRN Hypotension Cefepime HCl 2 gm in 100 mls @ 200 mls/hr 08/19/21 10:00 08/24/21 10:18 Cefepime/Ns 2 Gm/100 Ml IV 08/25/21 10:29 200 mls/hr Q24H LADAN Administration Protocol Insulin Human Lispro 0 unit 08/18/21 12:00 08/25/21 05:17 Insulin Lispro 100 Unit/Ml SUB-Q Not Given Q6HR [facility] Protocol Labetalol HCl 10 mg 08/23/21 07:45 Labetalol 20 Mg/4 Ml Inj IV Q4HR PRN SBP >160 Metoprolol Tartrate 25 mg 08/21/21 12:00 08/24/21 23:04 Metoprolol Tartrate 25 Mg Tab PO 25 mg BID LADAN Administration Naloxone HCl 0.4 mg 08/16/21 20:05 08/16/21 18:53 Naloxone 0.4 Mg/1 Ml Inj IV 0.4 mg Q2MIN PRN Administration Res Rate </= 8 or 02 SAT < 92% Ondansetron HCl 4 mg 08/16/21 21:28 Ondansetron 4 Mg/2 Ml Inj IV Q8H PRN Nausea And Vomiting Pantoprazole Sodium 40 mg 08/19/21 10:00 08/24/21 10:19 Pantoprazole 40 Mg Inj IV 40 mg QDAY LADAN Administration Polyethylene Glycol/Electrolytes 4,000 ml 08/26/21 12:00 Polyethylene Glycol/Elect Soln 4000 Ml PO 08/26/21 12:01 ONCE ONE Simple Syrup 15 ml 08/21/21 11:52 Simple Syrup 15 Ml FEEDTUBE PRN PRN Hypoglycemia Simple Syrup 30 ml 08/21/21 11:52 Simple Syrup 15 Ml FEEDTUBE PRN PRN Hypoglycemia Sodium Bicarbonate 325 mg 08/21/21 11:52 Sodium Bicarbonate 325 Mg Tab FEEDTUBE PRN PRN For Clogged Feeding Tube Sodium Chloride 10 ml 08/16/21 22:00 08/24/21 23:04 Sodium Chloride 0.9% 10 Ml Flush Syringe IV 10 ml BID LADAN Administration Sodium Chloride 10 ml 08/16/21 21:28 Sodium Chloride 0.9% 10 Ml Flush Syringe IV PRN PRN LINE FLUSH
[2021-08-25] MEDS: HEPARIN 5,000 UNIT/1 ML VIAL SUB-Q SCH ×2 (10:00→22:09)
[2021-08-25] MEDS: EPOETIN ALFA-EPBX 10,000 UNIT/1 ML VIAL SUB-Q PRN (12:04)
[2021-08-25] MEDS: PANTOPRAZOLE 40 MG INJ IV SCH (14:00)
[2021-08-25] MEDS: CEFEPIME/NS 2 GM/100 ML 2 GM/100 ML BAG IV SCH (14:00)
--- NOTE | 2021-08-25 14:05 | Event Note ---
Date: 08/25/21 spoke with nurse and family, as well as endo suite, should actually be able to do the egd/colon tomorrow PM, so will order clears and prep now
[2021-08-25] MEDS: amLODIPine 5 MG TAB PO SCH (14:15)
[2021-08-25] MEDS: FUROSEMIDE 40 MG TAB PO SCH (14:16)
[2021-08-25] MEDS: METOPROLOL TARTRATE 25 MG TAB PO SCH ×2 (14:17→22:10)
[2021-08-25] MEDS ORDERED: POLYETHYLENE GLYCOL/ELECT SOLN 4000 ML PO ONE (15:00)
--- NOTE | 2021-08-25 15:46 | Progress Note ---
Assessment and Plan Assessment and plan: Assessment and plan: This is a 70-year-old female with HTN, CAD s/p stent, DM, ESRD on HD, calciphylaxis admitted with acute hypoxic respiratory failure, UTI Interval history: This is a 70-year-old female with HTN, DM, ESRD on HD, calciphylaxis who pr esented to the emergency department on 08/16 with altered mental status and decreased responsiveness. Patient was recently admitted to the hospital after possible overdose on Dilaudid after vascular surgery for varicose veins on a Narcan drip. Upon arrival to the emergency department patient was given Narcan without significant improvement and had hypoglycemia into the 200s on initial presentation. Patient was obtunded and subsequently intubated to protect her airway. Work-up in the emergency department included a CXR and CT scan of the head which were unremarkable. Urinalysis revealed UTI patient was started on empiric antibiotics. Patient was admitted to the hospitalist service with consults to nephrology and [facility]. 08/17/21: Pt intubated, CC and nephro consulted, follow cx, cont abx, gurded prognosis 08/18/21: s/p HD today, plan to d/c all sedation and to monitor mental status, f ollow am lab. s/p one unit PRBC today 08/19/21: Patient was extubated today, urine culture resulted with E. coli and Klebsiella pneumoniae, trach aspirate with Pseudomonas aeruginosa however all are sensitive to cefepime which the patient is already on. 08/20: Neurology consulted, MRI brain and EEG pending, patient will be transferred out of the unit with remote telemetry as her H&H is stable. GI may scope the patient after another dialysis session if improvement with mentation. Patient failed speech evaluation and will be started on D10 while n.p.o. 08/21: Patient received MRI brain which showed microvascular angiopathy without evidence of recent territorial infarct. Dobbhoff placed and nutrition consulted for tube feedings. Patient received hemodialysis today. 08/22: Vaginal bleeding noted overnight, H&H is stable. Pelvic ultrasound is ordered will follow results. DC DVT prophylaxis at this time. Patient neurological recovery has been slow. She continues to follow some commands intermittently. However she still is aphasic and unable to communicate when questioned. EEG completed did not demonstrate any findings of seizure activity. Will await neurology final recommendations. ST recommended PEG as patient still at risk for aspiration. GI is already following patient right now but will discuss with them. Overall at this point continuing supportive management and hopeful neurologic recovery. On the last admission patient had taken approximately 6 to 7 days before returning to baseline. Will reassess through the weekend. was updated this afternoon. 08/23: Awaiting remainder of workup. Pelvic ultrasound pending. No signs and symptoms of bleeding this AM. Patient mental status has significantly improved. She is able to answer some questioning and follows all commands. She is drowsy but it appears medication is clearing her system. Will ask ST to re-eval swallowing today. D/w GI yesterday regarding PEG, we both agreed it might be premature for PEG at this point but would re-eval if patient worsened. Will continue supportive management. 08/24: More alert and oriented today. ST re-eval ordered. patient pulled NG yesterday. ok to hold. No need for mitten restraints at this time. No bleeding noted on exam. Will follow up with GI if there is plan to do further work up Wednesday. Anticipate d/c in next 24-48hrs. 08/25: Dialysis today. encephalopathy resolving however patient appears visibly frustrated. Needs re-assurance. Will plan for EGD-C-scope for GI tomorrow. Avoid all opioid narcotics and sedatives in this patient please Neuro: Metabolic versus toxic encephalopathy -CT head with no acute findings -Avoid delirium -Reorientation as needed -Maintain sleep-wake cycle -Neurology consulted, appreciate recommendations -MRI brain shows no recent territorial infarct -EEG pending Cardio: h/o HTN, CAD s/p stent -resume home hypertensive regimen and adjust as needed -Blood pressure monitor per protocol -As needed hydralazine -Resume home Lipitor -Hold home aspirin, Plavix Respiratory: Acute hypoxic respiratory failure -Patient was intubated 08/16 and extubated on 08/19 -Patient is currently on room air -Pulmonary hygiene -Supplemental oxygen as needed -SPO2 monitoring GI: Hematochezia -GI consulted, appreciate recommendations -Protonix IV -NG tube placed today -Nutrition consulted -Tube feedings started -24-hour -45 -Hold as needed at this time given GI bleed : ESRD on HD, calciphylaxis, hyponatremia, hypochloremia, metabolic acidosis, hypokalemia -Nephrology consulted, appreciate recommendations -HD per nephrology -Renally dose medications -Strict intake and output -Daily weights -Trend BMP -replace electrolytes prn. ID: E. coli and Klebsiella pneumonia UTI, tracheal aspirate with Pseudomonas aeruginosa -Patient is on cefepime -Trend fever and WBC curve Heme: Anemia of chronic disease, GI bleed -S/p 2 units PRBC -Transfuse for less than 7 hemoglobin -Trend CBC -Epogen per nephrology -H/H every 6 - hold lovenox due to vaginal bleeding. Endo: h/o DM -Accu-Cheks every 6 -SSI as needed -Avoid hypoglycemia History Interval history: tearful this am. Was frustrated with being in hospital. Reassured the patient that we care about her health and only want her to improve. Patient otherwise doing ok. GOing for dialysis this AM. Hospitalist Physical - Physical exam Narrative exam: - General Apperance Constitutional: comfortable - EENT EENT: PERRL, mucous membranes moist - Respiratory Respiratory: chest non-tender, lungs clear, rhonchi - Cardiovascular Cardiovascular: regular rate, normal S1, normal S2 Extremities: no peripheral edema bilat, no clubbing, cyanosis - Gastrointestinal Gastrointestinal: normoactive bowel sounds - Integumentary Integumentary: normal - Neurologic Cranial nerve examination: PERRL, EOMI, intact Speech examination: normal. Detailed motor examination: grossly full strength in Follows commands, alert, oriented x 2. - Constitutional Vitals: Temp Pulse Resp BP Pulse Ox 98.0 F 94 H 18 128/55 100 08/25/21 12:25 08/25/21 12:25 08/25/21 12:25 08/25/21 12:25 08/25/21 12:25 General appearance: Present: well-nourished Results - Labs CBC & Chem 7: 08/23/21 04:00 08/23/21 04:00 Labs: Laboratory Last Values WBC 6.7 K/mm3 (4.5-11.0) 08/23/21 04:00 RBC 2.93 M/mm3 (3.65-5.03) L 08/23/21 04:00 Hgb 8.8 gm/dl (10.1-14.3) L 08/23/21 04:00 Hct 26.5 % (30.3-42.9) L 08/23/21 04:00 MCV 91 fl (79-97) 08/23/21 04:00 MCH 30 pg (28-32) 08/23/21 04:00 MCHC 33 % (30-34) 08/23/21 04:00 RDW 19.7 % (13.2-15.2) H 08/23/21 04:00 Plt Count 261 K/mm3 (140-440) 08/23/21 04:00 Lymph % (Auto) 15.1 % (13.4-35.0) 08/23/21 04:00 Nolan % (Auto) 9.9 % (0.0-7.3) H 08/23/21 04:00 Eos % (Auto) 5.1 % (0.0-4.3) H 08/23/21 04:00 Baso % (Auto) 1.1 % (0.0-1.8) 08/23/21 04:00 Lymph # (Auto) 1.0 K/mm3 (1.2-5.4) L 08/23/21 04:00 Nolan # (Auto) 0.7 K/mm3 (0.0-0.8) 08/23/21 04:00 Eos # (Auto) 0.3 K/mm3 (0.0-0.4) 08/23/21 04:00 Baso # (Auto) 0.1 K/mm3 (0.0-0.1) 08/23/21 04:00 Seg Neutrophils % 68.8 % (40.0-70.0) 08/23/21 04:00 Seg Neutrophils # 4.6 K/mm3 (1.8-7.7) 08/23/21 04:00 PT 13.9 Sec. (12.2-14.9) 08/17/21 04:41 INR 0.96 (0.87-1.13) 08/17/21 04:41 ABG pH 7.373 (7.320-7.450) 08/18/21 04:30 POC ABG pCO2 33.4 mmHg (32.0-48.0) 08/18/21 04:30 ABG pCO2 28.7 mm Hg 08/17/21 03:08 POC ABG pO2 124.7 mmHg (83-108) H 08/18/21 04:30 ABG pO2 45.2 mm Hg (80.0-90.0) L 08/17/21 03:08 POC ABG HCO3 19.0 08/18/21 04:30 ABG HCO3 23.2 mmol/L (20.0-26.0) 08/17/21 03:08 ABG O2 Saturation 98.4 (0-100) 08/18/21 04:30 ABG O2 Content 9.8 (0.0-44) 08/17/21 03:08 POC ABG Base Excess -5.5 08/18/21 04:30 ABG Base Excess 0.8 mmol/L (-2.0-3.0) 08/17/21 03:08 ABG Hemoglobin 10.1 (12.0-17.5) L 08/18/21 04:30 ABG Oxyhemoglobin 98.1 (94-98) H 08/18/21 04:30 ABG Carboxyhemoglobin 1.5 % (0.0-5.0) 08/17/21 03:08 ABG Methemoglobin 0.3 (0.0-1.5) 08/18/21 04:30 ABG Sodium 135.5 mmol/L (136.0-145.0) L 08/18/21 04:30 ABG Potassium 4.0 mmol/L (3.40-4.50) 08/18/21 04:30 ABG Chloride 106.0 mmol/L (98-107) 08/18/21 04:30 ABG Glucose 80 mg/dL (65-95) 08/18/21 04:30 Oxyhemoglobin 79.6 % (95.0-99.0) L 08/17/21 03:08 Carboxyhemoglobin 0 (0.5-1.5) L 08/18/21 04:30 FiO2 45 % 08/17/21 03:08 FiO2 % 30.0 08/18/21 04:30 Sodium 140 mmol/L (137-145) 08/23/21 04:00 Potassium 3.4 mmol/L (3.6-5.0) L 08/23/21 04:00 Chloride 101.8 mmol/L (98-107) 08/23/21 04:00 Carbon Dioxide 27 mmol/L (22-30) 08/23/21 04:00 Anion Gap 15 mmol/L 08/23/21 04:00 BUN 14 mg/dL (7-17) 08/23/21 04:00 Creatinine 3.1 mg/dL (0.6-1.2) H 08/23/21 04:00 Estimated GFR 15 ml/min 08/23/21 04:00 BUN/Creatinine Ratio 5 % 08/23/21 04:00 Glucose 174 mg/dL (65-100) H 08/23/21 04:00 POC Glucose 165 mg/dL (70-105) H 08/25/21 04:12 Lactic Acid 1.00 mmol/L (0.7-2.0) 08/16/21 22:44 Calcium 8.2 mg/dL (8.4-10.2) L 08/23/21 04:00 Phosphorus 3.30 mg/dL (2.5-4.5) 08/21/21 04:36 Magnesium 2.00 mg/dL (1.7-2.3) 08/21/21 04:36 Total Bilirubin 0.20 mg/dL (0.1-1.2) 08/18/21 04:15 AST 23 units/L (5-40) 08/18/21 04:15 ALT 11 units/L (7-56) 08/18/21 04:15 Alkaline Phosphatase 144 units/L (35-129) H 08/18/21 04:15 Total Protein 6.1 g/dL (6.3-8.2) L 08/18/21 04:15 Albumin 1.6 g/dL (3.9-5) L 08/18/21 04:15 Albumin/Globulin Ratio 0.4 % 08/18/21 04:15 Arterial Blood Glucose 80 mg/dL (65-95) 08/18/21 04:30 Urine Color Yellow (Yellow) 08/16/21 08:00 Urine Turbidity Turbid (Clear) 08/16/21 08:00 Urine pH 6.0 (5.0-7.0) 08/16/21 08:00 Ur Specific [place] 1.010 (1.003-1.030) 08/16/21 08:00 Urine Protein >500 mg/dL (Negative) 08/16/21 08:00 Urine Glucose (UA) Negative mg/dL (Negative) 08/16/21 08:00 Urine Ketones Negative mg/dL (Negative) 08/16/21 08:00 Urine Blood Moderate (Negative) A 08/16/21 08:00 Urine Nitrite Negative (Negative) 08/16/21 08:00 Ur Reducing Substances Not Reportable 08/16/21 08:00 Urine Bilirubin Negative (Negative) 08/16/21 08:00 Urine Ictotest Not Reportable 08/16/21 08:00 Urine Urobilinogen < 2.0 mg/dL (<2.0) 08/16/21 08:00 Ur Leukocyte Esterase Large (Negative) 08/16/21 08:00 Urine WBC (Auto) > 182.0 /HPF (0.0-6.0) H 08/16/21 08:00 Urine RBC (Auto) 17.0 /HPF (0.0-6.0) 08/16/21 08:00 U Epithel Cells (Auto) 32.0 /HPF (0-13.0) H 08/16/21 08:00 Urine Bacteria (Auto) 4+ /HPF (Negative) 08/16/21 08:00 Urine Mucus 1+ /HPF 08/16/21 08:00 Urine Yeast (Budding) 2+ /HPF 08/16/21 08:00 Nasal Screen MRSA (PCR) Negative (Negative) 08/20/21 03:50 Urine Opiates Screen Negative 08/16/21 20:58 Urine Methadone Screen Negative 08/16/21 20:58 Ur Barbiturates Screen Negative 08/16/21 20:58 Ur Phencyclidine Scrn Negative 08/16/21 20:58 Ur Amphetamines Screen Negative 08/16/21 20:58 U Benzodiazepines Scrn Negative 08/16/21 20:58 Urine Cocaine Screen Negative 08/16/21 20:58 U Marijuana (THC) Screen Negative 08/16/21 20:58 Drugs of Abuse Note Disclamer 08/16/21 20:58 Plasma/Serum Alcohol < 0.01 % (0-0.07) 08/16/21 20:06 Blood Type B POSITIVE 08/18/21 20:50 Antibody Screen Negative 08/18/21 20:50 Crossmatch See Detail 08/18/21 20:50 Noriega/IV: Voiding Method Diaper Active Medications - Current Medications Current Medications: Generic Name Dose Route Start Last Admin Trade Name Freq PRN Reason Stop Dose Admin Acetaminophen 650 mg 08/16/21 21:28 Acetaminophen 650 Mg Rect Supp OR Q6H PRN Pain MILD(1-3)/Fever >100.5/PÉREZ Amlodipine Besylate 5 mg 08/21/21 12:00 08/25/21 14:15 Amlodipine 5 Mg Tab PO Not Given QDAY LADAN Lipase/Protease/Amylase 1 each 08/21/21 11:52 Lipase 10,500/Protease 25,000/Amylase 43,750 (Units) Dr [place] FEEDTUBE PRN PRN For Clogged Feeding Tube Atorvastatin Calcium 40 mg 08/21/21 22:00 08/24/21 23:04 Atorvastatin 40 Mg Tab PO 40 mg QHS LADAN Administration Dextrose 0 ml 08/16/21 21:28 08/17/21 16:54 Dextrose 50% In Water (25gm) 50 Ml Syringe IV 10 ml Q30MIN PRN Administration Hypoglycemia Protocol Furosemide 40 mg 08/23/21 07:46 08/25/21 14:16 Furosemide 40 Mg Tab PO Not Given QDAY [facility] Heparin Sodium (Porcine) 3,000 unit 08/18/21 08:05 08/20/21 15:03 Heparin 10,000 Units/10 Ml Vial IV 3,000 unit TITO PRN Administration hemodialysis Heparin Sodium (Porcine) 5,000 unit 08/22/21 22:00 08/24/21 23:02 Heparin 5,000 Unit/1 Ml Vial SUB-Q 5,000 unit Q12HR LADAN Administration Hydralazine HCl 10 mg 08/17/21 04:30 08/24/21 00:50 Hydralazine 20 Mg/1 Ml Inj IV 10 mg Q4HR PRN Administration Hypertension Sodium Chloride 100 mls @ 999 mls/hr 08/18/21 08:05 Nacl 0.9% IV TITO PRN Hypotension Insulin Human Lispro 0 unit 08/18/21 12:00 08/25/21 12:00 Insulin Lispro 100 Unit/Ml SUB-Q Not Given Q6HR [facility] Protocol Labetalol HCl 10 mg 08/23/21 07:45 Labetalol 20 Mg/4 Ml Inj IV Q4HR PRN SBP >160 Metoprolol Tartrate 25 mg 08/21/21 12:00 08/25/21 14:17 Metoprolol Tartrate 25 Mg Tab PO Not Given BID [facility] Naloxone HCl 0.4 mg 08/16/21 20:05 10/30/21 18:53 Naloxone 0.4 Mg/1 Ml Inj IV 0.4 mg Q2MIN PRN Administration Res Rate </= 8 or 02 SAT < 92% Ondansetron HCl 4 mg 08/16/21 21:28 Ondansetron 4 Mg/2 Ml Inj IV Q8H PRN Nausea And Vomiting Pantoprazole Sodium 40 mg 08/19/21 10:00 08/24/21 10:19 Pantoprazole 40 Mg Inj IV 40 mg QDAY LADAN Administration Simple Syrup 15 ml 08/21/21 11:52 Simple Syrup 15 Ml FEEDTUBE PRN PRN Hypoglycemia Simple Syrup 30 ml 08/21/21 11:52 Simple Syrup 15 Ml FEEDTUBE PRN PRN Hypoglycemia Sodium Bicarbonate 325 mg 08/21/21 11:52 Sodium Bicarbonate 325 Mg Tab FEEDTUBE PRN PRN For Clogged Feeding Tube Sodium Chloride 10 ml 08/16/21 22:00 08/24/21 23:04 Sodium Chloride 0.9% 10 Ml Flush Syringe IV 10 ml BID LADAN Administration Sodium Chloride 10 ml 08/16/21 21:28 Sodium Chloride 0.9% 10 Ml Flush Syringe IV PRN PRN LINE FLUSH Nutrition/Malnutrition Assess - Dietary Evaluation Nutrition/Malnutrition Findings: Nutrition Notes Start: 08/17/21 10: 25 Freq: Status: Active Protocol: Document 08/25/21 12:01 RUTHANN (Rec: 08/25/21 12:54 RUTHANN [email or web address]) Nutrition Notes Initial or Follow up Reassessment Current Diagnosis CKD (stage V CKD),Coronary Artery Disease,Diabetes, Hypertension,Heart Failure Other Pertinent Diagnosis Hematochezia Current Diet Pureed (B 08/25), Clear Liq (B 08/26), NPO (08/27 00:01). Labs/Tests 08/25: K 3.4, Crea 3.1, Glu 174, Ca 8.2. Pertinent Medications 08/25: Nutritionally unremarkable. Height 5 ft 8 in Weight 91 kg [place] Body Weight (kg) 63.63 BMI 30.4 Weight change and time frame No change reported at the time . Weight Status Obese Subjective/Other Information RD consult for routine F/U. Percent of energy/protein needs met: Pt's energy/protein needs are being partially adressed while Colonoscopy will be performed on 08/27. Burn Absent Trauma Absent GI Symptoms Other Difficulty In Swallowing,Chewing Food Allergy No Skin Integrity/Comment Area of concern. Current % PO Other Minimum of two criteria No #1 Nutrition Diagnosis Altered GI function Comments: Pt will udergo to EGD/ Colonoscopy on 08/27. Pt diagnosed with Disphagia by Speech Therapist 08/21. Etiology GI bleeding As Evidenced by Signs and Symptoms Hematochezia. Is patient on ventilator? No Is Patient Ambulatory and/or Out of Bed No REE-([facility]-confined to bed) 1768.020 Kcal/Kg value to use for calculation 20 Approximate Energy Requirements Using 1820 kcal/Kg Calculation Used for Recommendations Kcal/kg Additional Notes Protein: 1.2-1.5 g/Kg; 79-99 g /day (from IBW+hemorrage) Fluid: 1 ml/Kcal, or as per MD . Nutrition Intervention Change Diet Order: Continue protocol until EGD/ Colonoscopy; when pertinent, advance to PO Pureed Diet. Goal #1 Maintain body weight within +/ -3% of current BWt during LOS. Goal #2 Reach and maintain acceptable chemistry lab values during LOS. Follow-Up By: 08/28/21 Additional Comments Continue monitoring food tolerance, %PO intake of meals , Hydration, and BM.
[2021-08-25 23:46] LABS: Calcium 7.9 mg/dL (8.4-10.2)
--- NOTE | 2021-08-26 08:21 | Progress Note ---
Assessment and Plan 1. ESRD: Patient is on maintenance HD, MWF schedule. Patient was switched to hemodialysis about 2 months ago 2/2 calciphylaxis. Meds dosage based on GFR. Last outpatient HD ?08/15. Hemodialysis: 08/18, 08/20, 08/22, 08/25. 2. FEN: Mild anion-gap metabolic acidosis, on HD. Monitor lytes and volume status. 3. Acute metabolic encephalopathy, POA: ?2/[address] head negative. Improved. 4. H/o CAD s/p stent. Echo; EF 60%, LVH. 5. Anemia: Epogen with HD. 6. HTN: Monitor BP. 7. Type 2 DM. Subjective: Patient was seen and examined at the bedside. Examination: General appearance: well-developed, well-nourished, appears stated age HEENT: ATNC, pupils equal Neck: trachea midline Respiratory: Clear to Auscultation Cardiology: regular, S1S2, no murmur Gastrointestinal: normoactive bowel sounds, not tender, PD catheter noted Integumentary: b/l LE dressing noted Neurologic: AO, conversing, able to move extremities Ext: no edema Hemodialysis access: R IJ tunnel catheter Subjective Date of service: 08/26/21 Principal diagnosis: GIB Objective - Vital Signs Vital signs: Vital Signs - 12hr 08/25/21 08/25/21 08/25/21 20:29 20:34 23:17 Temperature 99.7 F H Pulse Rate 89 Respiratory 20 Rate Respiratory 17 Rate [Right Lower Leg] Blood Pressure 148/77 O2 Sat by Pulse 96 96 Oximetry 08/26/21 08/26/21 04:00 06:21 Temperature 98.0 F Pulse Rate 96 H 93 H Respiratory 20 Rate Respiratory Rate [Right Lower Leg] Blood Pressure 161/53 O2 Sat by Pulse 90 Oximetry - Lab 08/23/21 04:00 08/26/21 12:04 Most recent lab results ABG pH 7.373 (7.320-7.450) 08/18/21 04:30 ABG pCO2 28.7 mm Hg 08/17/21 03:08 ABG pO2 45.2 mm Hg (80.0-90.0) L 08/17/21 03:08 ABG HCO3 23.2 mmol/L (20.0-26.0) 08/17/21 03:08 ABG O2 Saturation 98.4 (0-100) 08/18/21 04:30 Calcium 7.9 mg/dL (8.4-10.2) L 08/25/21 22:48 Phosphorus 3.30 mg/dL (2.5-4.5) 08/21/21 04:36 Magnesium 2.00 mg/dL (1.7-2.3) 08/21/21 04:36 Medications & Allergies - Medications Allergies/Adverse Reactions: Allergies Penicillins Allergy (Unknown, Verified 08/11/21 17:39) Itching Home Medications: Home Medications Medication Instructions Recorded Confirmed Last Taken Type Albuterol Sulfate [Ventolin Hfa] 2 puff IH Q6H PRN 08/30/18 08/18/21 10/08/18 History Insulin Lispro [HumaLOG VIAL] 0 units SQ AC #1 vial 10/06/18 08/18/21 08/16/21 Rx Cinacalcet [Sensipar] 30 mg PO QDAY 08/08/21 08/18/21 Unknown History Furosemide [Lasix TAB] 80 mg PO QDAY 08/08/21 08/18/21 Unknown History Metoprolol Succinate [Toprol Xl] 25 mg PO DAILY 08/08/21 08/18/21 Unknown History Nortriptyline [Pamelor] 25 mg PO DAILY 08/08/21 08/18/21 Unknown History calcitrioL [Rocaltrol] 0.5 mcg PO QDAY 08/08/21 08/18/21 Unknown History metOLazone [Zaroxolyn] 5 mg PO QDAY 08/08/21 08/18/21 Unknown History Aspirin [Aspirin BABY CHEW TAB] 81 mg PO QDAY 30 Days #30 tab.chew 08/14/21 08/18/21 Unknown Rx AtorvaSTATin [Lipitor] 40 mg PO QHS #90 tablet 08/14/21 08/18/21 Unknown Rx Clopidogrel [Plavix] 75 mg PO QDAY 30 Days #30 tablet 08/14/21 08/18/21 Unknown Rx Hydralazine HCl 50 mg PO BID 30 Days #30 tab 08/14/21 08/18/21 Unknown Rx amLODIPine 5 mg PO QDAY 30 Days #30 tablet 08/14/21 08/18/21 Unknown Rx Active Medications: Generic Name Dose Route Start Last Admin Trade Name Freq PRN Reason Stop Dose Admin Acetaminophen 650 mg 08/16/21 21:28 Acetaminophen 650 Mg Rect Supp MT Q6H PRN Pain MILD(1-3)/Fever >100.5/PÉREZ Amlodipine Besylate 5 mg 08/21/21 12:00 08/25/21 14:15 Amlodipine 5 Mg Tab PO Not Given QDAY LADAN Lipase/Protease/Amylase 1 each 08/21/21 11:52 Lipase 10,500/Protease 25,000/Amylase 43,750 (Units) Dr [place] FEEDTUBE PRN PRN For Clogged Feeding Tube Atorvastatin Calcium 40 mg 08/21/21 22:00 08/25/21 22:10 Atorvastatin 40 Mg Tab PO 40 mg QHS LADAN Administration Dextrose 0 ml 08/16/21 21:28 08/17/21 16:54 Dextrose 50% In Water (25gm) 50 Ml Syringe IV 10 ml Q30MIN PRN Administration Hypoglycemia Protocol Furosemide 40 mg 08/23/21 07:46 08/25/21 14:16 Furosemide 40 Mg Tab PO Not Given QDAY [facility] Heparin Sodium (Porcine) 3,000 unit 08/18/21 08:05 08/20/21 15:03 Heparin 10,000 Units/10 Ml Vial IV 3,000 unit TITO PRN Administration hemodialysis Heparin Sodium (Porcine) 5,000 unit 08/22/21 22:00 08/25/21 22:09 Heparin 5,000 Unit/1 Ml Vial SUB-Q 5,000 unit Q12HR LADAN Administration Hydralazine HCl 10 mg 08/17/21 04:30 08/24/21 00:50 Hydralazine 20 Mg/1 Ml Inj IV 10 mg Q4HR PRN Administration Hypertension Sodium Chloride 100 mls @ 999 mls/hr 08/18/21 08:05 Nacl 0.9% IV TITO PRN Hypotension Insulin Human Lispro 0 unit 08/18/21 12:00 08/25/21 17:45 Insulin Lispro 100 Unit/Ml SUB-Q Not Given Q6HR [facility] Protocol Labetalol HCl 10 mg 08/23/21 07:45 Labetalol 20 Mg/4 Ml Inj IV Q4HR PRN SBP >160 Metoprolol Tartrate 25 mg 08/21/21 12:00 08/25/21 22:10 Metoprolol Tartrate 25 Mg Tab PO 25 mg BID LADAN Administration Naloxone HCl 0.4 mg 08/16/21 20:05 08/16/21 18:53 Naloxone 0.4 Mg/1 Ml Inj IV 0.4 mg Q2MIN PRN Administration Res Rate </= 8 or 02 SAT < 92% Ondansetron HCl 4 mg 08/16/21 21:28 Ondansetron 4 Mg/2 Ml Inj IV Q8H PRN Nausea And Vomiting Pantoprazole Sodium 40 mg 08/19/21 10:00 08/25/21 14:00 Pantoprazole 40 Mg Inj IV 40 mg QDAY LADAN Administration Simple Syrup 15 ml 08/21/21 11:52 Simple Syrup 15 Ml FEEDTUBE PRN PRN Hypoglycemia Simple Syrup 30 ml 08/21/21 11:52 Simple Syrup 15 Ml FEEDTUBE PRN PRN Hypoglycemia Sodium Bicarbonate 325 mg 08/21/21 11:52 Sodium Bicarbonate 325 Mg Tab FEEDTUBE PRN PRN For Clogged Feeding Tube Sodium Chloride 10 ml 08/16/21 22:00 08/25/21 22:28 Sodium Chloride 0.9% 10 Ml Flush Syringe IV 10 ml BID LADAN Administration Sodium Chloride 10 ml 08/16/21 21:28 Sodium Chloride 0.9% 10 Ml Flush Syringe IV PRN PRN LINE FLUSH
[2021-08-26] MEDS: INSULIN LISPRO 100 UNIT/ML SUB-Q SCH ×4 (08:41→22:30)
[2021-08-26] MEDS: amLODIPine 5 MG TAB PO SCH (10:00)
[2021-08-26] MEDS: HEPARIN 5,000 UNIT/1 ML VIAL SUB-Q SCH ×2 (10:14→23:35)
[2021-08-26] MEDS: FUROSEMIDE 40 MG TAB PO SCH (10:14)
[2021-08-26] MEDS: METOPROLOL TARTRATE 25 MG TAB PO SCH ×2 (10:15→23:33)
[2021-08-26] MEDS: PANTOPRAZOLE 40 MG INJ IV SCH (10:15)
[2021-08-26] MEDS ORDERED: POLYETHYLENE GLYCOL/ELECT SOLN 4000 ML PO ONE (12:00)
[2021-08-26 12:42] LABS: Calcium 7.8 mg/dL (8.4-10.2)
[2021-08-26] MEDS ORDERED: SODIUM CHLORIDE 0.9% 1000 ML 1,000 ML ONE (14:00)
[2021-08-26] MEDS ORDERED: LIDOCAINE MPF (2%) 20 MG/1 ML VIAL 5 ML ONE (14:00)
--- NOTE | 2021-08-26 14:22 | Anesthesia Day of Surgery ---
Anesthesia Day of Surgery - Day of Surgery Patient Examined: Yes Patient H&P Reviewed: Yes Patient is NPO: Yes
--- NOTE | 2021-08-26 14:22 | Anesthesia Consultation ---
Anesthesia Consult and Med Hx Date of service: 08/26/21 - Airway Anesthetic Teeth Evaluation: Edentulous Mental/Hyoid Distance: Adequate Mallampati Class: Class III Intubation Access Assessment: Possibly Difficult - Pulmonary Exam CTA: Yes - Cardiac Exam Cardiac Exam: RRR - Pre-Operative Health Status ASA Pre-Surgery Classification: ASA4 Proposed Anesthetic Plan: MAC - Pulmonary Hx Asthma: Yes Hx Respiratory Symptoms: Yes (intubated 08/06-08/19 for AMS and resp failure; current on RA) Hx Sleep Apnea: Yes - Cardiovascular System Hx Hypertension: Yes Hx Coronary Artery Disease: Yes Hx Percutaneous Transluminal Coronary Angioplasty (PTCA): Yes - Central Nervous System CVA: No Hx Psychiatric Problems: Yes (altered mental status) - Endocrine Hx End Stage Renal Disease: Yes (last HD 08/25/21) Hx Insulin Dependent Diabetes: Yes Hx Thyroid Disease: No - Hematic Hx Anemia: Yes - Additional Comments Anesthesia Medical History Comments: Anesthetic plan discussed with and consent obtained from via telephone.
--- NOTE | 2021-08-26 14:48 | Progress Note ---
Assessment and Plan Assessment and plan: This is a 70-year-old female with HTN, CAD s/p stent, DM, ESRD on HD, calciphylaxis admitted with acute hypoxic respiratory failure, UTI Interval history: This is a 70-year-old female with HTN, DM, ESRD on HD, calciphylaxis who presented to the emergency department on 08/16 with altered mental status and decreased responsiveness. Patient was recently admitted to the hospital after possible overdose on Dilaudid after vascular surgery for varicose veins on a Narcan drip. Upon arrival to the emergency department patient was given Narcan without significant improvement and had hypoglycemia into the 200s on initial presentation. Patient was obtunded and subsequently intubated to protect her airway. Work-up in the emergency department included a CXR and CT scan of the h ead which were unremarkable. Urinalysis revealed UTI patient was started on empiric antibiotics. Patient was admitted to the hospitalist service with consults to nephrology and CCM. 08/17/21: Pt intubated, CC and nephro consulted, follow cx, cont abx, gurded prognosis 08/18/21: s/p HD today, plan to d/c all sedation and to monitor mental status, follow am lab. s/p one unit PRBC today 08/19/21: Patient was extubated today, urine culture resulted with E. coli and Klebsiella pneumoniae, trach aspirate with Pseudomonas aeruginosa however all are sensitive to cefepime which the patient is already on. 08/20: Neurology consulted, MRI brain and EEG pending, patient will be transferred out of the unit with remote telemetry as her H&H is stable. GI may scope the patient after another dialysis session if improvement with mentation. Patient failed speech evaluation and will be started on D10 while n.p.o. 08/21: Patient received MRI brain which showed microvascular angiopathy without evidence of recent territorial infarct. Dobbhoff placed and nutrition consulted for tube feedings. Patient received hemodialysis today. 08/22: Vaginal bleeding noted overnight, H&H is stable. Pelvic ultrasound is ordered will follow results. DC DVT prophylaxis at this time. Patient neurological recovery has been slow. She continues to follow some commands intermittently. However she still is aphasic and unable to communicate when questioned. EEG completed did not demonstrate any findings of seizure activity. Will await neurology final recommendations. ST recommended PEG as patient still at risk for aspiration. GI is already following patient right now but will discuss with them. Overall at this point continuing supportive management and hopeful neurologic recovery. On the last admission patient had taken approximately 6 to 7 days before returning to baseline. Will reassess through the weekend. was updated this afternoon. 08/23: Awaiting remainder of workup. Pelvic ultrasound pending. No signs and symptoms of bleeding this AM. Patient mental status has significantly improved. She is able to answer some questioning and follows all commands. She is drowsy but it appears medication is clearing her system. Will ask ST to re-eval swallowing today. D/w GI yesterday regarding PEG, we both agreed it might be premature for PEG at this point but would re-eval if patient worsened. Will continue supportive management. 08/24: More alert and oriented today. ST re-eval ordered. patient pulled NG yesterday. ok to hold. No need for mitten restraints at this time. No bleeding n oted on exam. Will follow up with GI if there is plan to do further work up Wednesday. Anticipate d/c in next 24-48hrs. 08/25: Dialysis today Encephalopathy resolving however patient appears visibly frustrated. Needs re-assurance. Will plan for EGD-C-scope for GI tomorrow. 08/26: She remains clinical stable although still some confusion and poor understanding about plan for care. Continue HD. Follow h[place]go endoscopy result. Anticipate discharge in am, PT/OT Avoid all opioid narcotics and sedatives in this patient please Neuro: Metabolic versus toxic encephalopathy -CT head with no acute findings -Avoid delirium -Reorientation as needed -Maintain sleep-wake cycle -Neurology consulted, appreciate recommendations -MRI brain shows no recent territorial infarct -EEG pending Cardio: h/o HTN, CAD s/p stent -resume home hypertensive regimen and adjust as needed -Blood pressure monitor per protocol -As needed hydralazine -Resume home Lipitor -Hold home aspirin, Plavix Respiratory: Acute hypoxic respiratory failure -Patient was intubated 08/16 and extubated on 08/19 -Patient is currently on room air -Pulmonary hygiene -Supplemental oxygen as needed -SPO2 monitoring GI: Hematochezia -GI consulted, appreciate recommendations -Protonix IV -NG tube placed today -Nutrition consulted -Tube feedings started -24-hour -45 -Hold as needed at this time given GI bleed : ESRD on HD, calciphylaxis, hyponatremia, hypochloremia, metabolic acidosis, hypokalemia -Nephrology consulted, appreciate recommendations -HD per nephrology -Renally dose medications -Strict intake and output -Daily weights -Trend BMP -replace electrolytes prn. ID: E. coli and Klebsiella pneumonia UTI, tracheal aspirate with Pseudomonas aeruginosa -Patient is on cefepime -Trend fever and WBC curve Heme: Anemia of chronic disease, GI bleed -S/p 2 units PRBC -Transfuse for less than 7 hemoglobin -Trend CBC -Epogen per nephrology -H/H every 6 - hold lovenox due to vaginal bleeding. Endo: h/o DM -Accu-Cheks every 6 -SSI as needed -Avoid hypoglycemia History Interval history: Patient seen and examined this am, no new complaints. Continue supportive care, Did not complete the prep for colonoscopy. Awaiting EGD Hospitalist Physical - Constitutional Vitals: Temp Pulse Resp BP Pulse Ox 98.0 F 93 H 20 161/53 90 08/26/21 06:21 08/26/21 06:21 08/26/21 06:21 08/26/21 06:21 08/26/21 06:21 General appearance: Present: well-nourished Results - Labs CBC & Chem 7: 08/23/21 04:00 08/26/21 12:04 Labs: Laboratory Last Values WBC 6.7 K/mm3 (4.5-11.0) 08/23/21 04:00 RBC 2.93 M/mm3 (3.65-5.03) L 08/23/21 04:00 Hgb 8.8 gm/dl (10.1-14.3) L 08/23/21 04:00 Hct 26.5 % (30.3-42.9) L 08/23/21 04:00 MCV 91 fl (79-97) 08/23/21 04:00 MCH 30 pg (28-32) 08/23/21 04:00 MCHC 33 % (30-34) 08/23/21 04:00 RDW 19.7 % (13.2-15.2) H 08/23/21 04:00 Plt Count 261 K/mm3 (140-440) 08/23/21 04:00 Lymph % (Auto) 15.1 % (13.4-35.0) 08/23/21 04:00 [place] % (Auto) 9.9 % (0.0-7.3) H 08/23/21 04:00 Eos % (Auto) 5.1 % (0.0-4.3) H 08/23/21 04:00 Baso % (Auto) 1.1 % (0.0-1.8) 08/23/21 04:00 Lymph # (Auto) 1.0 K/mm3 (1.2-5.4) L 08/23/21 04:00 [place] # (Auto) 0.7 K/mm3 (0.0-0.8) 08/23/21 04:00 Eos # (Auto) 0.3 K/mm3 (0.0-0.4) 08/23/21 04:00 Baso # (Auto) 0.1 K/mm3 (0.0-0.1) 08/23/21 04:00 Seg Neutrophils % 68.8 % (40.0-70.0) 08/23/21 04:00 Seg Neutrophils # 4.6 K/mm3 (1.8-7.7) 08/23/21 04:00 PT 13.9 Sec. (12.2-14.9) 08/17/21 04:41 INR 0.96 (0.87-1.13) 08/17/21 04:41 ABG pH 7.373 (7.320-7.450) 08/18/21 04:30 POC ABG pCO2 33.4 mmHg (32.0-48.0) 08/18/21 04:30 ABG pCO2 28.7 mm Hg 08/17/21 03:08 POC ABG pO2 124.7 mmHg (83-108) H 08/18/21 04:30 ABG pO2 45.2 mm Hg (80.0-90.0) L 08/17/21 03:08 POC ABG HCO3 19.0 08/18/21 04:30 ABG HCO3 23.2 mmol/L (20.0-26.0) 08/17/21 03:08 ABG O2 Saturation 98.4 (0-100) 08/18/21 04:30 ABG O2 Content 9.8 (0.0-44) 08/17/21 03:08 POC ABG Base Excess -5.5 08/18/21 04:30 ABG Base Excess 0.8 mmol/L (-2.0-3.0) 08/17/21 03:08 ABG Hemoglobin 10.1 (12.0-17.5) L 08/18/21 04:30 ABG Oxyhemoglobin 98.1 (94-98) H 08/18/21 04:30 ABG Carboxyhemoglobin 1.5 % (0.0-5.0) 08/17/21 03:08 ABG Methemoglobin 0.3 (0.0-1.5) 08/18/21 04:30 ABG Sodium 135.5 mmol/L (136.0-145.0) L 08/18/21 04:30 ABG Potassium 4.0 mmol/L (3.40-4.50) 08/18/21 04:30 ABG Chloride 106.0 mmol/L (98-107) 08/18/21 04:30 ABG Glucose 80 mg/dL (65-95) 08/18/21 04:30 Oxyhemoglobin 79.6 % (95.0-99.0) L 08/17/21 03:08 Carboxyhemoglobin 0 (0.5-1.5) L 08/18/21 04:30 FiO2 45 % 08/17/21 03:08 FiO2 % 30.0 08/18/21 04:30 Sodium 142 mmol/L (137-145) 08/26/21 12:04 Potassium 3.9 mmol/L (3.6-5.0) 08/26/21 12:04 Chloride 103.2 mmol/L (98-107) 08/26/21 12:04 Carbon Dioxide 23 mmol/L (22-30) 08/26/21 12:04 Anion Gap 20 mmol/L 08/26/21 12:04 BUN 15 mg/dL (7-17) 08/26/21 12:04 Creatinine 4.2 mg/dL (0.6-1.2) H 08/26/21 12:04 Estimated GFR 10 ml/min 08/26/21 12:04 BUN/Creatinine Ratio 4 % 08/26/21 12:04 Glucose 152 mg/dL (65-100) H 08/26/21 12:04 POC Glucose 140 mg/dL (70-105) H 08/26/21 11:33 Lactic Acid 1.00 mmol/L (0.7-2.0) 08/16/21 22:44 Calcium 7.8 mg/dL (8.4-10.2) L 08/26/21 12:04 Phosphorus 3.30 mg/dL (2.5-4.5) 08/21/21 04:36 Magnesium 2.00 mg/dL (1.7-2.3) 08/21/21 04:36 Total Bilirubin 0.20 mg/dL (0.1-1.2) 08/18/21 04:15 AST 23 units/L (5-40) 08/18/21 04:15 ALT 11 units/L (7-56) 08/18/21 04:15 Alkaline Phosphatase 144 units/L (35-129) H 08/18/21 04:15 Total Protein 6.1 g/dL (6.3-8.2) L 08/18/21 04:15 Albumin 1.6 g/dL (3.9-5) L 08/18/21 04:15 Albumin/Globulin Ratio 0.4 % 08/18/21 04:15 Arterial Blood Glucose 80 mg/dL (65-95) 08/18/21 04:30 Urine Color Yellow (Yellow) 08/16/21 08:00 Urine Turbidity Turbid (Clear) 08/16/21 08:00 Urine pH 6.0 (5.0-7.0) 08/16/21 08:00 Ur Specific [place] 1.010 (1.003-1.030) 08/16/21 08:00 Urine Protein >500 mg/dL (Negative) 08/16/21 08:00 Urine Glucose (UA) Negative mg/dL (Negative) 08/16/21 08:00 Urine Ketones Negative mg/dL (Negative) 08/16/21 08:00 Urine Blood Moderate (Negative) A 08/16/21 08:00 Urine Nitrite Negative (Negative) 08/16/21 08:00 Ur Reducing Substances Not Reportable 08/16/21 08:00 Urine Bilirubin Negative (Negative) 08/16/21 08:00 Urine Ictotest Not Reportable 08/16/21 08:00 Urine Urobilinogen < 2.0 mg/dL (<2.0) 08/16/21 08:00 Ur Leukocyte Esterase Large (Negative) 08/16/21 08:00 Urine WBC (Auto) > 182.0 /HPF (0.0-6.0) H 08/16/21 08:00 Urine RBC (Auto) 17.0 /HPF (0.0-6.0) 08/16/21 08:00 U Epithel Cells (Auto) 32.0 /HPF (0-13.0) H 08/16/21 08:00 Urine Bacteria (Auto) 4+ /HPF (Negative) 08/16/21 08:00 Urine Mucus 1+ /HPF 08/16/21 08:00 Urine Yeast (Budding) 2+ /HPF 08/16/21 08:00 Nasal Screen MRSA (PCR) Negative (Negative) 08/20/21 03:50 Urine Opiates Screen Negative 08/16/21 20:58 Urine Methadone Screen Negative 08/16/21 20:58 Ur Barbiturates Screen Negative 08/16/21 20:58 Ur Phencyclidine Scrn Negative 08/16/21 20:58 Ur Amphetamines Screen Negative 08/16/21 20:58 U Benzodiazepines Scrn Negative 08/16/21 20:58 Urine Cocaine Screen Negative 08/16/21 20:58 U Marijuana (THC) Screen Negative 08/16/21 20:58 Drugs of Abuse Note Disclamer 08/16/21 20:58 Plasma/Serum Alcohol < 0.01 % (0-0.07) 08/16/21 20:06 Blood Type B POSITIVE 08/18/21 20:50 Antibody Screen Negative 08/18/21 20:50 Crossmatch See Detail 08/18/21 20:50 Noriega/IV: Voiding Method Incontinent Active Medications - Current Medications Current Medications: Generic Name Dose Route Start Last Admin Trade Name Freq PRN Reason Stop Dose Admin Acetaminophen 650 mg 08/16/21 21:28 Acetaminophen [address] Q6H PRN Pain MILD(1-3)/Fever >100.5/PÉREZ Amlodipine Besylate 5 mg 08/21/21 12:00 08/25/21 14:15 Amlodipine 5 Mg Tab PO Not Given QDAY LADAN Lipase/Protease/Amylase 1 each 08/21/21 11:52 Lipase 10,500/Protease 25,000/Amylase 43,750 (Units) Dr Cap FEEDTUBE PRN PRN For Clogged Feeding Tube Atorvastatin Calcium 40 mg 08/21/21 22:00 08/25/21 22:10 Atorvastatin 40 Mg Tab PO 40 mg QHS LADAN Administration Dextrose 0 ml 08/16/21 21:28 08/17/21 16:54 Dextrose 50% In Water (25gm) 50 Ml Syringe IV 10 ml Q30MIN PRN Administration Hypoglycemia Protocol Furosemide 40 mg 08/23/21 07:46 08/25/21 14:16 Furosemide 40 Mg Tab PO Not Given QDAY LADAN Heparin Sodium (Porcine) 3,000 unit 08/18/21 08:05 08/20/21 15:03 Heparin 10,000 Units/10 Ml Vial IV 3,000 unit TITO PRN Administration hemodialysis Heparin Sodium (Porcine) 5,000 unit 08/22/21 22:00 08/25/21 22:09 Heparin 5,000 Unit/1 Ml Vial SUB-Q 5,000 unit Q12HR LADAN Administration Hydralazine HCl 10 mg 08/17/21 04:30 08/24/21 00:50 Hydralazine 20 Mg/1 Ml Inj IV 10 mg Q4HR PRN Administration Hypertension Sodium Chloride 100 mls @ 999 mls/hr 08/18/21 08:05 Nacl 0.9% IV TITO PRN Hypotension Insulin Human Lispro 0 unit 08/18/21 12:00 08/26/21 08:41 Insulin Lispro 100 Unit/Ml SUB-Q Not Given Q6HR [facility] Protocol Labetalol HCl 10 mg 08/23/21 07:45 Labetalol 20 Mg/4 Ml Inj IV Q4HR PRN SBP >160 Metoprolol Tartrate 25 mg 08/21/21 12:00 08/25/21 22:10 Metoprolol Tartrate 25 Mg Tab PO 25 mg BID LADAN Administration Naloxone HCl 0.4 mg 08/16/21 20:05 08/16/21 18:53 Naloxone 0.4 Mg/1 Ml Inj IV 0.4 mg Q2MIN PRN Administration Res Rate </= 8 or 02 SAT < 92% Ondansetron HCl 4 mg 08/16/21 21:28 Ondansetron 4 Mg/2 Ml Inj IV Q8H PRN Nausea And Vomiting Pantoprazole Sodium 40 mg 08/19/21 10:00 08/25/21 14:00 Pantoprazole 40 Mg Inj IV 40 mg QDAY LADAN Administration Simple Syrup 15 ml 08/21/21 11:52 Simple Syrup 15 Ml FEEDTUBE PRN PRN Hypoglycemia Simple Syrup 30 ml 08/21/21 11:52 Simple Syrup 15 Ml FEEDTUBE PRN PRN Hypoglycemia Sodium Bicarbonate 325 mg 08/21/21 11:52 Sodium Bicarbonate 325 Mg Tab FEEDTUBE PRN PRN For Clogged Feeding Tube Sodium Chloride 10 ml 08/16/21 22:00 08/25/21 22:28 Sodium Chloride 0.9% 10 Ml Flush Syringe IV 10 ml BID LADAN Administration Sodium Chloride 10 ml 08/16/21 21:28 Sodium Chloride 0.9% 10 Ml Flush Syringe IV PRN PRN LINE FLUSH Nutrition/Malnutrition Assess - Dietary Evaluation Nutrition/Malnutrition Findings: Nutrition Notes Start: 08/17/21 10:25 Freq: Status: Active Protocol: Document 08/25/21 12:01 RUTHANN (Rec: 08/25/21 12:54 RUTHANN [id number]) Nutrition Notes Initial or Follow up Reassessment Current Diagnosis CKD (stage V CKD),Coronary Artery Disease,Diabetes, Hypertension,Heart Failure Other Pertinent Diagnosis Hematochezia Current Diet Pureed (B 08/25), Clear Liq (B 08/26), NPO (08/27 00:01). Labs/Tests 08/25: K 3.4, Crea 3.1, Glu 174, Ca 8.2. Pertinent Medications 08/25: Nutritionally unremarkable. Height 5 ft 8 in Weight 91 kg [place] Body Weight (kg) 63.63 BMI 30.4 Weight change and time frame No change reported at the time . Weight Status Obese Subjective/Other Information RD consult for routine F/U. Percent of energy/protein needs met: Pt's energy/protein needs are being partially adressed while Colonoscopy will be performed on 08/27. Burn Absent Trauma Absent GI Symptoms Other Difficulty In Swallowing,Chewing Food Allergy No Skin Integrity/Comment Area of concern. Current % PO Other Minimum of two criteria No #1 Nutrition Diagnosis Altered GI function Comments: Pt will udergo to EGD/ Colonoscopy on 08/27. Pt diagnosed with Disphagia by Speech Therapist 08/21. Etiology GI bleeding As Evidenced by Signs and Symptoms Hematochezia. Is patient on ventilator? No Is Patient Ambulatory and/or Out of Bed No REE-([place] Jeor-confined to bed) 1768.020 Kcal/Kg value to use for calculation 20 Approximate Energy Requirements Using 1820 kcal/Kg Calculation Used for Recommendations Kcal/kg Additional Notes Protein: 1.2-1.5 g/Kg; 79-99 g /day (from IBW+hemorrage) Fluid: 1 ml/Kcal, or as per MD . Nutrition Intervention Change Diet Order: Continue protocol until EGD/ Colonoscopy; when pertinent, advance to PO Pureed Diet. Goal #1 Maintain body weight within +/ -3% of current BWt during LOS. Goal #2 Reach and maintain acceptable chemistry lab values during LOS. Follow-Up By: 08/28/21 Additional Comments Continue monitoring food tolerance, %PO intake of meals , Hydration, and BM.
[2021-08-26] MEDS ORDERED: propofoL 200 MG/20 ML VIAL IV ONE ×2 (14:56)
--- NOTE | 2021-08-26 15:06 | Operative Report ---
Operative Report Operative Report: DOS: 08/26/21 SURGEON: Taz Llyod MD EGD REPORT PREOPERATIVE DIAGNOSIS and POSTOPERATIVE DIAGNOSIS: Anemia ESTIMATED BLOOD LOSS: None DESCRIPTION OF PROCEDURE: A high-resolution EGD scope was passed through the oropharynx, esophagus, stomach, and second portion of duodenum. The scope was carefully withdrawn. Retroflexion was performed in the stomach. At the end of the procedure, the scope was cleaned using normal technique. Vital signs monitored continuously throughout. SEDATION: Provided by Anesthesiology Services. COMPLICATIONS: None. FINDINGS: * No gross lesions of the entire examined duodenum or stomach * 2 cm hiatal hernia * GE junction 38 cm from incisors * Remainder of exam unremarkable RECOMMENDATIONS: * No source for anemia on EGD Patient is declining colon prep and refuses colonoscopy, therefore GI will sign off please call us back we can be of any further assistance
--- NOTE | 2021-08-26 15:54 | Post Anesthesia Evaluation ---
- Post Anesthesia Evaluation Patient Participated: Yes Airway Patent: Yes Stable Respiratory Function: Yes Nausea/Vomiting: No Temp > 96.8F: Yes Pain Manageable: Yes Adequeate Hydration: Yes Anesthesia Complications: No
[2021-08-27] MEDS: INSULIN LISPRO 100 UNIT/ML SUB-Q SCH (06:30)
--- NOTE | 2021-08-27 08:49 | Discharge Summary ---
Providers - Providers Date of Admission: 08/16/21 21:14 Attending physician: MARCIANO MEDEIROS MD 08/16/21 21:28 Consult to Physician [CONS] Routine Comment: Consulting Provider: OMAR BURNHAM Physician Instructions: Reason For Exam: ESRD ON DIALYSIS 08/19/21 09:08 Consult to Physician [CONS] Routine Comment: called office/ geoff Consulting Provider: MYKEL PTAEL Physician Instructions: Reason For Exam: GIB 08/19/21 20:23 Consult to Wound/ET Nurse [CONS] Routine Reason For Exam: wound eval BLE 08/20/21 00:28 Speech Therapy Evaluation and Treat [CONS] Routine Reason For Exam: speech eval s/p extubation 08/1908/20/21 13:55 Consult to Physician [CONS] Routine Comment: Consulting Provider: BHAVYA ZARATE Physician Instructions: Reason For Exam: ams 08/21/21 09:49 Consult to Dietitian/Nutrition [CONS] Routine Physician Instructions: Reason For Exam: Reason for Consult: Write/Manage Tube Feeding 08/21/21 13:01 Occupational Therapy Evaluate and Treat [CONS] Routine Comment: Reason For Exam: Debility Physical Therapy Evaluation and Treat [CONS] Routine Comment: Reason For Exam: Debility 08/22/21 08:38 Speech Therapy Evaluation and Treat [CONS] Routine Reason For Exam: eval and tx 08/24/21 10:17 Speech Therapy Evaluation and Treat [CONS] Routine Reason For Exam: re-eval. patient more alert and oriented. Primary care physician: [employer] Hospitalization Reason for admission: Altered mental state Condition: Stable Hospital course: This is a 70-year-old female with HTN, CAD s/p stent, DM, ESRD on HD, calciphylaxis admitted with acute hypoxic respiratory failure, UTI Interval history: This is a 70-year-old female with HTN, DM, ESRD on HD, calciphylaxis who presented to the emergency department on 08/16 with altered mental status and decreased responsiveness. Patient was recently admitted to the hospital after possible overdose on Dilaudid after vascular surgery for varicose veins on a Narcan drip. Upon arrival to the emergency department patient was given Narcan without significant improvement and had hypoglycemia into the 200s on initial pr esentation. Patient was obtunded and subsequently intubated to protect her airway. Work-up in the emergency department included a CXR and CT scan of the head which were unremarkable. Urinalysis revealed UTI patient was started on empiric antibiotics. Patient was admitted to the hospitalist service with consults to nephrology and [facility]. 08/17/21: Pt intubated, CC and nephro consulted, follow cx, cont abx, gurded prognosis 08/18/21: s/p HD today, plan to d/c all sedation and to monitor mental status, follow am lab. s/p one unit PRBC today 08/19/21: Patient was extubated today, urine culture resulted with E. coli and Klebsiella pneumoniae, trach aspirate with Pseudomonas aeruginosa however all are sensitive to cefepime which the patient is already on. 08/20: Neurology consulted, MRI brain and EEG pending, patient will be transferred out of the unit with remote telemetry as her H&H is stable. GI may scope the patient after another dialysis session if improvement with mentation. Patient failed speech evaluation and will be started on D10 while n.p.o. 08/21: Patient received MRI brain which showed microvascular angiopathy without evidence of recent territorial infarct. Dobbhoff placed and nutrition consulted for tube feedings. Patient received hemodialysis today. 08/22: Vaginal bleeding noted overnight, H&H is stable. Pelvic ultrasound is ordered will follow results. DC DVT prophylaxis at this time. Patient neurological recovery has been slow. She continues to follow some commands intermittently. However she still is aphasic and unable to communicate when questioned. EEG completed did not demonstrate any findings of seizure activity. Will await neurology final recommendations. ST recommended PEG as patient still at risk for aspiration. GI is already following patient right now but will discuss with them. Overall at this point continuing supportive management and hopeful neurologic recovery. On the last admission patient had taken approximately 6 to 7 days before returning to baseline. Will reassess through the weekend. was updated this afternoon. 08/23: Awaiting remainder of workup. Pelvic ultrasound pending. No signs and symptoms of bleeding this AM. Patient mental status has significantly improved. She is able to answer some questioning and follows all commands. She is drowsy but it appears medication is clearing her system. Will ask ST to re-eval swallowing today. D/w GI yesterday regarding PEG, we both agreed it might be premature for PEG at this point but would re-eval if patient worsened. Will continue supportive management. 08/24: More alert and oriented today. ST re-eval ordered. patient pulled NG yesterday. ok to hold. No need for mitten restraints at this time. No bleeding noted on exam. Will follow up with GI if there is plan to do further work up Wednesday. Anticipate d/c in next 24-48hrs. 08/25: Dialysis today Encephalopathy resolving however patient appears visibly frustrated. Needs re-assurance. Will plan for EGD-C-scope for GI tomorrow. 08/26: She remains clinical stable although still some confusion and poor understanding about plan for care. Continue HD. Follow hidalgo endoscopy result. Anticipate discharge in am, PT/OT 08/27: Patient underwent endoscopy EGD was performed but colonoscopy could not be performed as patient was not interested in participating and did not consume prep. 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 Avoid all opioid narcotics and sedatives in this patient please Neuro: Metabolic versus toxic encephalopathy -CT head with no acute findings -Avoid delirium -Reorientation as needed -Maintain sleep-wake cycle -Neurology consulted, appreciate recommendations -MRI brain shows no recent territorial infarct -EEG pending Cardio: h/o HTN, CAD s/p stent -resume home hypertensive regimen and adjust as needed -Blood pressure monitor per protocol -As needed hydralazine -Resume home Lipitor -Hold home aspirin, Plavix Respiratory: Acute hypoxic respiratory failure -Patient was intubated 08/16 and extubated on 08/19 -Patient is currently on room air -Pulmonary hygiene -Supplemental oxygen as needed -SPO2 monitoring GI: Hematochezia -GI consulted, appreciate recommendations -Protonix IV -NG tube placed today -Nutrition consulted -Tube feedings started -24-hour -45 -Hold as needed at this time given GI bleed : ESRD on HD, calciphylaxis, hyponatremia, hypochloremia, metabolic acidosis, hypokalemia -Nephrology consulted, appreciate recommendations -HD per nephrology -Renally dose medications -Strict intake and output -Daily weights -Trend BMP -replace electrolytes prn. ID: E. coli and Klebsiella pneumonia UTI, tracheal aspirate with Pseudomonas aeruginosa -Patient is on cefepime -Trend fever and WBC curve Heme: Anemia of chronic disease, GI bleed -S/p 2 units PRBC -Transfuse for less than 7 hemoglobin -Trend CBC -Epogen per nephrology -H/H every 6 - hold lovenox due to vaginal bleeding. Endo: h/o DM -Accu-Cheks every 6 -SSI as needed -Avoid hypoglycemia Disposition: HOME / SELF CARE / HOMELESS Final Discharge Diagnosis (Prints w/discharge instructions): Acute hypoxic respiratory failure with presumed aspiration pneumonia Time spent for discharge: 35 minutes Core Measure Documentation - Palliative Care Palliative Care/ Comfort Measures: Not Applicable - Core Measures Any of the following diagnoses?: none Exam - Physical Exam Narrative exam: - General Apperance Constitutional: comfortable - EENT EENT: PERRL, mucous membranes moist - Respiratory Respiratory: chest non-tender, lungs clear, rhonchi - Cardiovascular Cardiovascular: regular rate, normal S1, normal S2 Extremities: no peripheral edema bilat, no clubbing, cyanosis - Gastrointestinal Gastrointestinal: normoactive bowel sounds - Integumentary Integumentary: normal - Neurologic Cranial nerve examination: PERRL, EOMI, intact Speech examination: normal. Detailed motor examination: grossly full strength in Follows commands, alert, oriented x 2. - Constitutional Vitals: Temp Pulse Resp BP Pulse Ox 98.2 F 85 18 155/68 98 08/27/21 06:26 08/27/21 06:26 08/27/21 06:26 08/27/21 06:26 08/27/21 06:26 Plan Activity: advance as tolerated, fall precautions Diet: low fat Special Instructions: record daily weights, record daily BP diary, physical therapy, occupational therapy, other (speech therapy) Care Plan Goals: must avoid sedative meds and opioids Follow up with: LÁZARO ROMO MD [Staff Physician] - 7 Days PRIMARY CARE, [Primary Care Provider] - 3-5 Days SANTINO CHARLES MD [Staff Physician] - 7 Days CAMILO PUENTES MD [Staff Physician] - 7 Days Prescriptions: Furosemide [Lasix TAB] 40 mg PO QDAY #30 tablet Pantoprazole [Protonix TAB] 40 mg PO QDAY #30 tablet
--- NOTE | 2021-08-27 12:17 | Post Anesthesia Evaluation ---
- Post Anesthesia Evaluation Patient Participated: Yes Airway Patent: Yes Stable Respiratory Function: Yes Nausea/Vomiting: No Temp > 96.8F: Yes Pain Manageable: Yes Adequeate Hydration: Yes Anesthesia Complications: No Block Receding Appropriately: Not Applicable Patient on Ventilator: No
[2021-08-27] MEDS: EPOETIN ALFA-EPBX 10,000 UNIT/1 ML VIAL SUB-Q PRN (13:00)
--- NOTE | 2021-08-27 17:00 | Progress Note ---
Assessment and Plan 1. ESRD: Patient is on maintenance HD, MWF schedule. Patient was switched to hemodialysis about 2 months ago 2/2 calciphylaxis. Meds dosage based on GFR. Last outpatient HD ?08/15. Hemodialysis: 08/18, 08/20, 08/22, 08/25, 08/27. 2. FEN: Mild anion-gap metabolic acidosis, on HD. Monitor lytes and volume status. 3. Acute metabolic encephalopathy, POA: ?2/[address] head negative. Improved. 4. H/o CAD s/p stent. Echo; EF 60%, LVH. 5. Anemia: Epogen with HD. 6. HTN: Monitor BP. 7. Type 2 DM. Subjective: Patient was seen and examined at the bedside. Examination: General appearance: well-developed, well-nourished, appears stated age HEENT: ATNC, pupils equal Neck: trachea midline Respiratory: Clear to Auscultation Cardiology: regular, S1S2, no murmur Gastrointestinal: normoactive bowel sounds, not tender, PD catheter noted Integumentary: b/l LE dressing noted Neurologic: AO, conversing, able to move extremities Ext: no edema Hemodialysis access: R IJ tunnel catheter Subjective Date of service: 08/27/21 Principal diagnosis: GIB Objective - Vital Signs Vital signs: Vital Signs - 12hr 08/27/21 06:26 Temperature 98.2 F Pulse Rate 85 Respiratory 18 Rate Blood Pressure 155/68 O2 Sat by Pulse 98 Oximetry - Lab 08/23/21 04:00 08/26/21 12:04 Most recent lab results ABG pH 7.373 (7.320-7.450) 08/18/21 04:30 ABG pCO2 28.7 mm Hg 08/17/21 03:08 ABG pO2 45.2 mm Hg (80.0-90.0) L 08/17/21 03:08 ABG HCO3 23.2 mmol/L (20.0-26.0) 08/17/21 03:08 ABG O2 Saturation 98.4 (0-100) 08/18/21 04:30 Calcium 7.8 mg/dL (8.4-10.2) L 08/26/21 12:04 Phosphorus 3.30 mg/dL (2.5-4.5) 08/21/21 04:36 Magnesium 2.00 mg/dL (1.7-2.3) 08/21/21 04:36 Medications & Allergies - Medications Allergies/Adverse Reactions: Allergies Penicillins Allergy (Unknown, Verified 08/11/21 17:39) Itching Home Medications: Home Medications Medication Instructions Recorded Confirmed Last Taken Type Albuterol Sulfate [Ventolin Hfa] 2 puff IH Q6H PRN 08/30/18 08/18/21 10/08/18 Hi story Insulin Lispro [HumaLOG VIAL] 0 units SQ AC #1 vial 10/06/18 08/18/21 08/16/21 Rx Cinacalcet [Sensipar] 30 mg PO QDAY 08/08/21 08/18/21 Unknown History Metoprolol Succinate [Toprol Xl] 25 mg PO DAILY 08/08/21 08/18/21 Unknown History Nortriptyline [Pamelor] 25 mg PO DAILY 08/08/21 08/18/21 Unknown History calcitrioL [Rocaltrol] 0.5 mcg PO QDAY 08/08/21 08/18/21 Unknown History metOLazone [Zaroxolyn] 5 mg PO QDAY 08/08/21 08/18/21 Unknown History Aspirin [Aspirin BABY CHEW TAB] 81 mg PO QDAY 30 Days #30 tab.chew 08/14/21 08/18/21 Unknown Rx AtorvaSTATin [Lipitor] 40 mg PO QHS #90 tablet 08/14/21 08/18/21 Unknown Rx Clopidogrel [Plavix] 75 mg PO QDAY 30 Days #30 tablet 08/14/21 08/18/21 Unknown Rx Hydralazine HCl 50 mg PO BID 30 Days #30 tab 08/14/21 08/18/21 Unknown Rx amLODIPine 5 mg PO QDAY 30 Days #30 tablet 08/14/21 08/18/21 Unknown Rx Furosemide [Lasix TAB] 40 mg PO QDAY #30 tablet 08/27/21 Unknown Rx Pantoprazole [Protonix TAB] 40 mg PO QDAY #30 tablet 08/27/21 Unknown Rx
[2021-08-27 19:06] VITALS: BP 160/69
== END 2021-08-27 15:34 | disposition home health service (06) | DRG 208 ==
LOC: ED 18:51 → CC1 21:14 → 3A 08-21 15:33
PROVIDERS: ADMIT Internal Medicine Geriatric Medicine; ATTEND Internal Medicine
PROC: 5A1945Z Respiratory Ventilation, 24-96 Consecutive Hours (ICD-10-PCS; principal; 2021-08-16)
PROC: 0BH17EZ Insertion of Endotracheal Airway into Trachea, Via Natural or Artificial Opening (ICD-10-PCS; 2021-08-16)
PROC: 4A033R1 Measurement of Arterial Saturation, Peripheral, Percutaneous Approach (ICD-10-PCS; 2021-08-18)
PROC: 5A1D70Z Performance of Urinary Filtration, Intermittent, Less than 6 Hours Per Day (ICD-10-PCS; 2021-08-18)
PROC: 30233N1 Transfusion of Nonautologous Red Blood Cells into Peripheral Vein, Percutaneous Approach (ICD-10-PCS; 2021-08-18)
PROC: 5A1D70Z Performance of Urinary Filtration, Intermittent, Less than 6 Hours Per Day (ICD-10-PCS; 2021-08-20)
PROC: 5A1D70Z Performance of Urinary Filtration, Intermittent, Less than 6 Hours Per Day (ICD-10-PCS; 2021-08-22)
PROC: 5A1D70Z Performance of Urinary Filtration, Intermittent, Less than 6 Hours Per Day (ICD-10-PCS; 2021-08-25)
PROC: 0DJ08ZZ Inspection of Upper Intestinal Tract, Via Natural or Artificial Opening Endoscopic (ICD-10-PCS; 2021-08-26)
PROC: 5A1D70Z Performance of Urinary Filtration, Intermittent, Less than 6 Hours Per Day (ICD-10-PCS; 2021-08-27)
DX: J69.0 Pneumonitis due to inhalation of food and vomit (principal); J96.01 Acute respiratory failure with hypoxia; G92.9 Unspecified toxic encephalopathy; N18.6 End stage renal disease; I50.43 Acute on chronic combined systolic (congestive) and diastolic (congestive) heart failure; I13.2 Hypertensive heart and chronic kidney disease with heart failure and with stage 5 chronic kidney disease, or end stage renal disease; N39.0 Urinary tract infection, site not specified; E87.2 Acidosis; K92.1 Melena; E87.1 Hypo-osmolality and hyponatremia; I25.10 Atherosclerotic heart disease of native coronary artery without angina pectoris; M19.90 Unspecified osteoarthritis, unspecified site; D64.9 Anemia, unspecified; Z20.822 Contact with and (suspected) exposure to COVID-19; B96.20 Unspecified Escherichia coli [E. coli] as the cause of diseases classified elsewhere; B96.1 Klebsiella pneumoniae [K. pneumoniae] as the cause of diseases classified elsewhere; E87.8 Other disorders of electrolyte and fluid balance, not elsewhere classified; K44.9 Diaphragmatic hernia without obstruction or gangrene; Z95.5 Presence of coronary angioplasty implant and graft
CPT/HCPCS: 36415; 36600; 70450; 70551; 71045; 74018; 76856; 80048; 80053; 80307; 80320; 81001; 82140; 82803; 82805; 82962; 83735; 84100; 85014; 85018; 85025; 85027; 85610; 86850; 86900; 86901; 86920; 87040; 87070; 87076; 87086; 87186; 87205; 87641; 94002; 94003; 95819; G0378; C9113; G0480; J0360; J0692; J0885; J1644; J1815; J1956; J2310; J2704; J3370; J3475; J7030; J7040; P9016